=== PATIENT | female | born 1945 | race Caucasian/White ===

== ENCOUNTER 2016-10-05 09:27 | Day surgery (SDC) | payer MEDICARE, OTHER ==
[~2016-10-05 09:27] MED LIST: Buffered Lidocaine 0.9% SYRIN* 5 ML/SYR SYRINGE INTRADERM ONE
[2016-10-05] MEDS ORDERED: Midazolam* 1 MG/ML 2 ML VIAL (2 MG) ONE (12:49)
[2016-10-05] MEDS ORDERED: Lidocaine 2% PF * 5 ML VIAL ONE (13:01)
[2016-10-05] MEDS ORDERED: Albuterol 2.5 MG/3 ML NEB.SOL* (0.083%) ONE (13:12)
[2016-10-05] MEDS ORDERED: Levalbuterol 1.25MG/0.5ML NEB ONE (13:14)
[2016-10-05] MEDS ORDERED: Neomycin/Polymy/Dex OPTH.SUSP* MAXITROL 0.1% 5 ML ONE (13:55)
[2016-10-05] MEDS ORDERED: acetaZOLAMIDE TAB* 250 MG ONE (13:55)
[2016-10-05] MEDS ORDERED: Povidone Iodine 5% OPTH* 30 ML BTL ONE (13:55)
[2016-10-05] MEDS ORDERED: Phenylephrine 2.5% OPTH.SOL* 2 ML BTL ONE (13:55)
[2016-10-05] MEDS ORDERED: Flurbiprofen 0.03% OPTH.SOL* 2.5 ML BTL ONE (13:55)
[2016-10-05] MEDS ORDERED: Cyclopentolate 1% OPTH.SOL* 2 ML BTL ONE (13:55)
[2016-10-05] MEDS ORDERED: Lidocaine 1% MPF* 2 ML VIAL ONE (13:55)
[2016-10-05] MEDS ORDERED: Lidocaine 1% MPF wEPI 200,000* 30 ML SDV ONE (13:55)
[2016-10-05] MEDS ORDERED: Proparacaine 0.5% OPHTH.SOL* 15 ML BTL ONE (13:56)
[2016-10-05] MEDS ORDERED: Buffered Lidocaine 0.9% SYRIN* 5 ML/SYR SYRINGE ONE (13:56)
[2016-10-05 14:00] VITALS: BP 126/73
--- NOTE | 2016-10-06 07:47 | OP ---
DATE OF OPERATION: 10/05/16 - [facility] DATE OF : 45 SURGEON: Emil Craig M.D. PREOPERATIVE DIAGNOSIS: Cataract, right eye. POSTOPERATIVE DIAGNOSIS: Cataract, right eye. OPERATIVE PROCEDURE: Phacoemulsification right eye with IOL. DESCRIPTION OF PROCEDURE: The patient was brought to the operating room after being given 1/2% Alcaine with epinephrine drops in the preoperative area. The eye was prepped and draped in the usual sterile fashion. Sterile drape and eyelid speculum were placed. Again, topical 1/2% Alcaine with epinephrine was given. A paracentesis incision was made at the 9 o'clock position with the No.75 blade. Clear cornea incision 2.2 x 2.2-mm was created at the 12 o'clock position starting at the anterior limbus using the 2.2-mm keratome. The anterior chamber was irrigated with 0.4 mL of 1% non-preservative intracameral lidocaine and filled with DisCoVisc. A capsulorrhexis was completed using the cystotome and the Utrata forceps. Hydrodissection was performed with balanced salt solution. The lens nucleus was removed with the Phacoemulsification handpiece without incident. Cortex was removed with the irrigation-aspiration handpiece. The capsular bag was re-inflated using DisCoVisc and an implant [id number] was inserted with the shooter oriented to the 129 degree meridian. Horizontal reference bethanie was made with the patient in seated position in preoperative area. The irrigation-aspiration handpiece was used to remove all residual DisCoVisc. The eye was refilled with balanced salt solution and the wound checked and found to be watertight. Topical Maxitrol drops were given. [id number]/[facility] #: [id number] [facility]OSPITALJose David
== END 2016-10-05 13:45 | disposition home or self-care (01) ==
LOC: OREAST 09:27
PROVIDERS: ATTEND Specialist
DX: H25.811 Combined forms of age-related cataract, right eye (principal); H04.123 Dry eye syndrome of bilateral lacrimal glands; H02.403 Unspecified ptosis of bilateral eyelids; J45.21 Mild intermittent asthma with (acute) exacerbation; Z87.891 Personal history of nicotine dependence; Z79.51 Long term (current) use of inhaled steroids
CPT/HCPCS: A9270-GY; J2001; J2250; V2787

== ENCOUNTER 2016-10-12 08:34 | Day surgery (SDC) | payer MEDICARE, OTHER ==
[2016-10-12] MEDS ORDERED: Midazolam* 1 MG/ML 2 ML VIAL (2 MG) ONE (11:18)
[2016-10-12 12:09] VITALS: BP 122/57
[2016-10-12] MEDS ORDERED: Lidocaine 1% MPF wEPI 200,000* 30 ML SDV ONE (13:05)
[2016-10-12] MEDS ORDERED: Lidocaine 1% MPF* 2 ML VIAL ONE (13:05)
[2016-10-12] MEDS ORDERED: Povidone Iodine 5% OPTH* 30 ML BTL ONE (13:05)
[2016-10-12] MEDS ORDERED: Cyclopentolate 1% OPTH.SOL* 2 ML BTL ONE (13:05)
[2016-10-12] MEDS ORDERED: Proparacaine 0.5% OPHTH.SOL* 15 ML BTL ONE (13:05)
[2016-10-12] MEDS ORDERED: Neomycin/Polymy/Dex OPTH.SUSP* MAXITROL 0.1% 5 ML ONE (13:05)
[2016-10-12] MEDS ORDERED: Buffered Lidocaine 0.9% SYRIN* 5 ML/SYR SYRINGE ONE (13:05)
[2016-10-12] MEDS ORDERED: acetaZOLAMIDE TAB* 250 MG ONE (13:05)
[2016-10-12] MEDS ORDERED: Flurbiprofen 0.03% OPTH.SOL* 2.5 ML BTL ONE (13:05)
[2016-10-12] MEDS ORDERED: Phenylephrine 2.5% OPTH.SOL* 2 ML BTL ONE (13:05)
--- NOTE | 2016-10-12 13:24 | OP ---
DATE OF OPERATION: 10/12/2016 - [facility] DATE OF : 1945. SURGEON: Emil Craig M.D. PREOPERATIVE DIAGNOSIS: Cataract left eye. POSTOPERATIVE DIAGNOSIS: Cataract left eye. OPERATIVE PROCEDURE: Phacoemulsification left eye with IOL. DESCRIPTION OF PROCEDURE: The patient was brought to the operating room after being given 1/2% Alcaine with epinephrine drops in the preoperative area. The eye was prepped and draped in the usual sterile fashion. Sterile drape and eyelid speculum were placed. Again, topical 1/2% Alcaine with epinephrine was given. A paracentesis incision was made at the 3 o'clock position with the No.75 blade. Clear cornea incision 2.2 x 2.2-mm was created at the 6 o'clock position starting at the anterior limbus using the 2.2-mm keratome. The anterior chamber was irrigated with 0.4 mL of 1% non-preservative intracameral lidocaine and filled with DisCoVisc. A capsulorrhexis was completed using the cystotome and the Utrata forceps. Hydrodissection was performed with balanced salt solution. The lens nucleus was removed with the Phacoemulsification handpiece without incident. Cortex was removed with the irrigation-aspiration handpiece. The capsular bag was re-inflated using DisCoVisc and an [id number] implant was inserted with the shooter. The irrigation-aspiration handpiece was used to remove all residual DisCoVisc. The eye was refilled with balanced salt solution and the wound checked and found to be watertight. Topical Maxitrol drops were given. [id number]/[facility] #: [id number] [facility]ITALJose David
== END 2016-10-12 12:09 | disposition home or self-care (01) ==
LOC: OREAST 08:34
PROVIDERS: ATTEND Specialist
DX: H25.812 Combined forms of age-related cataract, left eye (principal); H04.123 Dry eye syndrome of bilateral lacrimal glands; H02.403 Unspecified ptosis of bilateral eyelids; Z87.891 Personal history of nicotine dependence; I34.0 Nonrheumatic mitral (valve) insufficiency
CPT/HCPCS: A9270-GY; J2001; J2250; V2632

== ENCOUNTER 2016-10-25 16:20 | Emergency (ER) | payer MEDICARE, OTHER ==
[2016-10-25 16:26] VITALS: BP 142/74
--- NOTE | 2016-10-25 16:42 | UC ---
Respiratory Complaint HPI - HPI Summary HPI Summary: 71 yo female with cough and wheezing x >1 month end of August took augmentin- it gave her diarrhea but did not help with her symptoms she recently saw her asthma and allergy MD just finished coarse of prednisone (40 mg /day) without improvement had fever at onset none recentlys - History of Current Complaint Chief Complaint: UCRespiratory Stated Complaint: COUGH Time Seen by Provider: 10/25/16 16:36 Hx Obtained From: Patient Onset/Duration: Gradual Onset, Lasting Weeks Timing: Constant Severity Initially: Moderate Severity Currently: Moderate Pain Intensity: 0 Pain Scale Used: 0-10 Numeric Character: Cough: Nonproductive Aggravating Factors: Recumbent Position Alleviating Factors: Bronchodilator Associated Signs And Symptoms: Positive: Fever - at onset only, Wheezing, Nasal Congestion Related History: Similar Episode/Dx as: - bronchitis - Allergies/Home Medications Allergies/Adverse Reactions: Allergies Allergy/AdvReac Type Severity Reaction Status Date / Time Fluticasone [From Advair] Allergy Intermediate Tachycardia Verified 10/12/16 09: 21 Salmeterol [From Advair] Allergy Intermediate Tachycardia Verified 10/12/16 09: 21 Sulfabenzamide Allergy Unknown Unknown Verified 10/12/16 09:21 [From Sulfa-Trip] Reaction Details Sulfacetamide Allergy Unknown Unknown Verified 10/12/16 09:21 [From Sulfa-Trip] Reaction Details Sulfathiazole Allergy Unknown Unknown Verified 10/12/16 09:21 [From Sulfa-Trip] Reaction Details Home Medications: Home Medications Promethazine W/Codeine [Promethazine/Codeine] PRN 10/25/16 [History] PMH/Surg Hx/FS Hx/Imm Hx Previously Healthy: Yes Endocrine History: Dyslipidemia Respiratory History: COPD, Asthma, Bronchitis, Pneumonia - Surgical History Surgical History: Yes Surgery Procedure, Year, and Place: 21 YRS OLD- WISDOM TOOTH EXTRACTED IN DR DYLAN- DIFFICULTY WAKING UP. 1995-BLEPHAROPLASTY- IN DR KRAUS'S OFFICE - Family History Known Family History: Positive: Hypertension, Respiratory Disease - Social History Alcohol Use: Weekly Alcohol Amount: 1 GLASS OF WINE/WEEK Substance Use Type: None Smoking Status (MU): Former Smoker Type: Cigarettes Amount Used/How Often: SOCIAL SMOKER, NOT EVERY DAY, OFF AND ON FOR 20 YRS Length of Time of Smoking/Using Tobacco: 20 YRS Have You Smoked in the Last Year: No When Did the Patient Quit Smoking/Using Tobacco: 1996 Review of Systems Constitutional: Negative Skin: Negative Eyes: Negative ENT: Negative Respiratory: Cough Cardiovascular: Negative Gastrointestinal: Negative Genitourinary: Negative Motor: Negative Musculoskeletal: Negative Neurological: Negative Psychological: Negative All Other Systems Reviewed And Are Negative: Yes Physical Exam Triage Information Reviewed: Yes Appearance: Well-Appearing, No Pain Distress, Well-Nourished Vital Signs: Initial Vital Signs Temp 99.4 F 10/25/16 16:23 Pulse 95 10/25/16 16:23 Resp 18 10/25/16 16:23 BP 142/74 10/25/16 16:23 Pulse Ox 98 10/25/16 16:23 Eyes: Positive: Conjunctiva Clear ENT: Positive: Hearing grossly normal, Nasal congestion. Negative: Nasal drainage, Trismus, Muffled/hoarse voice Neck: Positive: Nontender, No Lymphadenopathy Respiratory: Positive: No respiratory distress, No accessory muscle use, Wheezing Cardiovascular: Positive: RRR Musculoskeletal: Positive: ROM Intact, No Edema Neurological: Positive: Alert Psychological Exam: Normal Skin Exam: Normal UC Diagnostic Evaluation - Laboratory O2 Sat by Pulse Oximetry: 98 - normal/not hypoxic - Radiology Xray Interpretation: Positive (See Comments) - small pleural effusion /left fissure, stigmata of COPD Radiology Interpretation Completed By: Radiologist Respiratory Course/Dx - Differential Dx/Diagnosis Provider Diagnoses: acute exacerbation of COPD. small pleural effusion (L) Discharge - Discharge Plan Condition: Stable Disposition: HOME Prescriptions: Clarithromycin TAB* [Biaxin 500 MG TAB*] 500 mg PO BID #14 tab Patient Education Materials: Acute Bronchitis (ED), Pleural Effusion (ED) Referrals: Sophie Tucker MD [Primary Care Provider] - As Soon As Possible Additional Instructions: no pnemonia but the radiologist did note a small left sided pleural effusion recheck for new or worsening symptoms
[2016-10-25] MEDS ORDERED: Ipratropium 0.5MG/2.5ML NEB* 0.5 MG/2.5 ML NEB.SOLN INH ONE (16:52)
[2016-10-25] MEDS ORDERED: Albuterol 2.5 MG/3 ML NEB.SOL* (0.083%) INH ONE (16:52)
--- NOTE | 2016-10-25 17:28 | RAD ---
INDICATION: Cough x1 month COMPARISON: None TECHNIQUE: PA and lateral views of the chest were obtained. FINDINGS: The heart and mediastinum are normal in size and contour. On the AP view the lungs appear hyperaerated. On the lateral view there is flattening of the diaphragm with an increased retrosternal airspace. Depicted better on the lateral view images, there is costophrenic angle blunting. There is also a lenticular shaped density obscuring the left aphasia. The lungs are otherwise adequately aerated without suspicious nodules or lobar consolidation. Visualized bones are normal for the patient's age. There is no radiographic evidence of free air beneath the diaphragm IMPRESSION: 1. CHEST X-RAY FINDINGS ARE CONSISTENT WITH THE STIGMATA OF CHRONIC OBSTRUCTIVE PULMONARY DISEASE. 2. THERE IS PROBABLY A SMALL PLEURAL EFFUSION POTENTIALLY WITH FLUID IN THE LEFT MAJOR FISSURE WELL.
== END 2016-10-25 17:52 | disposition home or self-care (01) ==
LOC: UCEAST 16:20
DX: J44.1 Chronic obstructive pulmonary disease with (acute) exacerbation (principal); J90 Pleural effusion, not elsewhere classified; Z87.891 Personal history of nicotine dependence
CPT/HCPCS: 71020; 99212; G0463; J7644

== ENCOUNTER 2018-08-29 08:59 | Inpatient (IN) | payer MEDICARE, OTHER ==
[2018-08-29] MEDS ORDERED: Ondansetron INJ* 2 MG/ML VIAL IV ONE (09:24)
--- NOTE | 2018-08-29 09:28 | ED ---
Abdominal Pain/Female - HPI Summary HPI Summary: Pt. is a 73 y.o female who presents to the ER for diffuse abd. pain. Pt. states she was diagnosed with diverticulitis by PCP two weeks ago. Pt. states she had an outpt. CT scan and finished a course of Cipro last Monday, 5 days ago. Pt. states abd. pain improved after antibiotic and then returned yesterday. Associated sxs of subjective fever/chills, and N/V. Pt. denies diarrhea, blood in stool, CP, or SOB. Past hx of MVP, asthma, HDL, GERD. Denies abd. sx hx. Symptoms are moderate in severity. No current modifying factors. - History of Current Complaint Chief Complaint: EDAbdPain Stated Complaint: ABD PAIN PER EMS Time Seen by Provider: 08/29/18 09:16 Hx Obtained From: Patient Pain Intensity: 7 Allergies/Adverse Reactions: Allergies Allergy/AdvReac Type Severity Reaction Status Date / Time fluticasone Allergy Tachycardia Verified 08/29/18 09:26 [From Advair Diskus] salmeterol Allergy Tachycardia Verified 08/29/18 09:26 [From Advair Diskus] Sulfa (Sulfonamide Allergy Unknown Verified 08/29/18 09:26 Antibiotics) Reaction Details Home Medications: Home Medications Albuterol 2.5MG/3ML (0.083%)* [Ventolin 2.5 MG/3 ML NEB.LAYA*] 2.5 mg INH Q6H PRN 08/29/18 [History Confirmed 08/29/18] Albuterol HFA INHALER* [Ventolin HFA Inhaler*] 2 puff INH Q4H PRN 08/29/18 [ History Confirmed 08/29/18] Estrogens, Conjugated [Premarin] 0.625 mg PO WEEKLY 08/29/18 [History Confirmed 08/29/18] Melatonin [Meladox] 3 mg PO BEDTIME 08/29/18 [History Confirmed 08/29/18] RX: Hydrocortisone 2.5% CREAM(NF) 1 applic TOPICAL BID 08/29/18 [History Confirmed 08/29/18] PMH/Surg Hx/FS Hx/Imm Hx Previously Healthy: Yes Cardiovascular History: Reports: Hx Coronary Artery Disease, Hx 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, Other Cardiovascular Problems/Disorders - HIGH CHOLESTEROL Respiratory History: Reports: Hx Asthma, Other Respiratory Problems/Disorders - MILD SOB FROM BRONCHITIS GI History: Reports: Hx Gastroesophageal Reflux Disease - TAKES FAMOTIDINE PRN Musculoskeletal History: Reports: Hx Arthritis - OSTEOARTHRITIS, Other Musculoskeletal History - DJD NECK AND BACK Sensory History: Reports: Hx Cataracts - BILATERAL- SURG DATES 10/05/16 & 10/12/16 , Hx Contacts or Glasses - GLASSES Denies: Hx Glaucoma, Hx Hearing Aid Opthamlomology History: Reports: Hx Cataracts - BILATERAL- SURG DATES 10/05/16 & 10/12/16, Hx Contacts or Glasses - GLASSES Denies: Hx Glaucoma - Cancer History Hx Chemotherapy: No - Surgical History Surgery Procedure, Year, and Place: 21 YRS OLD- WISDOM TOOTH EXTRACTED IN DR OFFICE- DIFFICULTY WAKING UP. 1995-BLEPHAROPLASTY- IN DR KRAUS'S OFFICE Hx Anesthesia Reactions: Yes - WISOM TOOTH- TOO MUCH ANES, DIFFICULTY WAKING UP Infectious Disease History: No Infectious Disease History: Denies: Hx Clostridium Difficile, Hx Hepatitis, Hx Human Immunodeficiency Virus (HIV), Hx of Known/Suspected MRSA, Hx Shingles, Hx Tuberculosis, Hx Known/ Suspected VRE, Hx Known/Suspected VRSA, History Other Infectious Disease, Traveled Outside the [place] in Last 30 Days - Family History Known Family History: Positive: Hypertension, Respiratory Disease - Social History Occupation: Retired Lives: Alone Alcohol Use: None Alcohol Amount: denies, but has history Substance Use Type: Reports: None Hx Tobacco Use: No Smoking Status (MU): Former Smoker Type: Cigarettes Amount Used/How Often: SOCIAL SMOKER, NOT EVERY DAY, OFF AND ON FOR 20 YRS Length of Time of Smoking/Using Tobacco: 20 YRS Have You Smoked in the Last Year: No Review of Systems Positive: Fever, Chills Eyes: Negative ENT: Negative Cardiovascular: Negative Negative: Palpitations, Chest Pain Respiratory: Negative Negative: Shortness Of Breath, Cough Positive: Abdominal Pain, Vomiting, Nausea. Negative: Diarrhea Genitourinary: Negative Musculoskeletal: Negative Skin: Negative Neurological: Negative All Other Systems Reviewed And Are Negative: Yes Physical Exam Triage Information Reviewed: Yes Vital Signs On Initial Exam: Initial Vitals Temp Pulse Resp BP Pulse Ox 99.8 F 81 18 106/64 95 08/29/18 09:01 08/29/18 09:01 08/29/18 09:01 08/29/18 09:01 08/29/18 09:01 Vital Signs Reviewed: Yes Appearance: Positive: Well-Appearing - Pt. sitting up in bed with her eyes closed. Appears uncomfortable but nontoxic. Skin: Positive: Warm, Dry Head/Face: Positive: Normal Head/Face Inspection Eyes: Positive: Normal, EOMI, CANDIE Neck: Positive: Supple Respiratory/Lung Sounds: Positive: Clear to Auscultation, Breath Sounds Present Cardiovascular: Positive: Normal, RRR Abdomen Description: Positive: Other: - Soft, mildly distened with diffuse tenderness throughout with guarding. Musculoskeletal: Positive: Normal, Strength/ROM Intact Neurological: Positive: Normal, CN Intact II-III Psychiatric: Positive: Affect/Mood Appropriate Diagnostics - Vital Signs Vital Signs Temp Pulse Resp BP Pulse Ox 08/29/18 09:01 99.8 F 81 18 106/64 95 - Laboratory Result Diagrams: 08/29/18 10:10 08/29/18 10:10 Lab Statement: Any lab studies that have been ordered have been reviewed, and results considered in the medical decision making process. Abdominal Pain Fem Course/Dx - Course Course Of Treatment: Pt. presenting with worsening abd. pain after being dx with diverticulitis two weeks ago. Pt. has diffuse pain and distention on exam. Low grade fever. Will obtain labs and CT scan to evaluation for abscess, perforation or other etiology. IV fluids started. CBC shows normal WBC. Lactic acid 2.5, mag 1.8, CRP 2245. ECG done at 0926 shows a sinus rhythm of 99bpm, right axis deviation, RBBB, PVCs, no STEMI. CT abd/pelvis per radiology: IMPRESSION: There are foci of free intraperitoneal air noted. There is a large amount of. stool in the colon. Mucosal thickening of the sigmoid colon is noted. Colonic perforation. should BE considered. Cholelithiasis without biliary duct dilatation. 1133: Surgery paged. IV Zosyn ordered. Discussed case with Dr. Ramos and she will see pt. in the ED. Case discussed with Dr. Geiger as well. Either Dr. Geiger or Dr. Ramos will admit pt. based on need for surgical intervention. - Diagnoses Differential Diagnosis: Positive: Abdominal Aortic Aneurysm, Appendicitis, Bowel Obstruction, Constipation, Diverticulitis, [place] Provider Diagnoses: Intestinal perforation Discharge - Sign-Out/Discharge Documenting (check all that apply): Patient Departure Patient Received Moderate/Deep Sedation with Procedure: No - Discharge Plan Condition: Stable Disposition: ADMITTED TO [facility] Referrals: Sophie Tucker MD [Primary Care Provider] - - Billing Disposition and Condition Condition: STABLE Disposition: Admitted to [facility]
[2018-08-29] MEDS ORDERED: NS 0.9% IV ONE (09:30)
[2018-08-29 10:27] LABS: ABS Lymphocytes 0.5 10^3/ul (1.0-4.8); ABS Monocytes 0.8 10^3/ul (0-0.8); Hematocrit 41 % (35-47); Hemoglobin 13.6 g/dL (12.0-16.0); Lymphocyte % 6.4 %; Mean Corpuscular HGB Conc 33 g/dL (31-36); Mean Corpuscular Hemoglobin 28 pg (27-31); Mean Corpuscular Volume 85 fL (80-97); Mean Platelet Volume 7.3 fL (7.4-10.4); Nucleated Red Blood Cells % 0.1; Platelet Count 436 10^3/uL (150-450); Red Cell Distribution Width 15 % (10.5-15); White Blood Count 8.4 10^3/uL (3.5-10.8)
[2018-08-29 10:47] LABS: ALT 16 U/L (7-52); AST 18 U/L (13-39); Albumin 3.6 g/dL (3.2-5.2); Albumin/Globulin Ratio 1.1 (1-3); Alkaline Phosphatase 78 U/L (34-104); Anion Gap 11 mmol/L (2-11); BUN/Creatinine Ratio 15.9 (8-20); Blood Urea Nitrogen 13 mg/dL (6-24); C Reactive Protein 225.95 mg/L (<8.01); CO2 Carbon Dioxide 22 mmol/L (22-32); Calcium 8.8 mg/dL (8.6-10.3); Chloride 101 mmol/L (101-111); EGFR African American 82.7 (>60); EGFR Non-African American 68.3 (>60); Globulin 3.2 g/dL (2-4); Glucose 160 mg/dL (70-100); Magnesium 1.8 mg/dL (1.9-2.7); Potassium 4.3 mmol/L (3.5-5.0); Sodium 134 mmol/L (135-145); Total Protein 6.8 g/dL (6.4-8.9)
[2018-08-29 10:48] LABS: Troponin I 0.01 ng/mL (<0.04)
[2018-08-29] MEDS ORDERED: Iohexol 300* (CONTRAST) 10 ML SDV IV ONE (11:18)
[2018-08-29] MEDS ORDERED: Morphine 4 MG/ML VIAL (1 ml) 4 MG/ML VIAL IV ONE (11:31)
[2018-08-29] MEDS ORDERED: ED Piperacillin/Tazobac 3.375 3.375 GM/100 ML PREMIX.SET IVPB ONE (11:31)
[2018-08-29] MEDS ORDERED: Piperacillin/Tazobac (*) 3.375 GM BAG ONE (11:42)
[2018-08-29] MEDS ORDERED: ZOSYN 3.375 GM x ONE DOSE over 30 miuntes IVPB ×2 (12:00)
[2018-08-29] MEDS ORDERED: Magnesium Sulfate 1 GM IV* 1 GM/100 ML BAG IV ONE (14:51)
--- NOTE | 2018-08-29 14:55 | CONS ---
CONSULTATION NOTE: DATE OF CONSULT: 08/29/18. SERVICE: General Surgery. ATTENDING PHYSICIAN: Lora Ramos MD. REASON FOR CONSULT: Diverticulitis with foci of air. HISTORY OF PRESENT ILLNESS: Ms. Spencer is a 73-year-old female with a history of asthma and mitral valve prolapse, who presented to the emergency room with complaints of 2 days of having abdominal pain after eating a sandwich. The patient notes that earlier, on 08/20/18, she was seen by her [place] physician for abdominal pain and had a CT scan performed at [place] that showed diverticulitis. She said that she was prescribed antibiotics Cipro and Flagyl and that she took Cipro for 15 days, but she stopped taking Flagyl after 3 days given that she was intolerant of the medication and was having side effects. She said that her pain had initially improved after the antibiotics and at that time she was also taking a liquid diet; however, after she had the sandwich about 2 days ago, her pain recurred almost immediately after that. She said the last night, she did have a fever to 101 at home and given that the pain has increased over the past 2 days and has not improved, she came to the emergency room. The patient does note that she has significant constipation, she has been trying to take stool softeners to improve this. She has normally very hard stool and does not have bowel movements everyday. She has never had a colonoscopy before. Today, other than having the abdominal pain, she does not have any complaints right now. PAST MEDICAL HISTORY: 1. Mitral valve prolapse. 2. Asthma. 3. Hyperlipidemia. 4. GERD. PAST SURGICAL HISTORY: Cataract surgery. No history of abdominal surgery. MEDICATIONS: 1. Melatonin 3 mg p.o. q.h.s. 2. Albuterol 2 puffs inhaled q.4 hours p.r.n. 3. Premarin 0.625 mg p.o. weekly. ALLERGIES: ADVAIR and SULFA. FAMILY HISTORY: Her father had diverticulitis. SOCIAL HISTORY: The patient is a former smoker. She is retired and she lives alone. REVIEW OF SYSTEMS: Negative except for abdominal pain and constipation. PHYSICAL EXAM: Vital Signs: Temperature is 99.8, pulse is 90, respiratory rate is 16, blood pressure is 145/117. General: She is an elderly woman, lying comfortably in bed, in no apparent distress. HEENT: Normocephalic, atraumatic. Abdomen is somewhat distended, but fairly soft, tender in the right lower quadrant as well as left lower quadrant. No guarding. Cardiovascular with regular rate and rhythm. Respiratory is clear to auscultation bilaterally. DIAGNOSTIC STUDIES/LAB DATA: Laboratory Values: White blood cell count of 8.4 , hemoglobin 13.6, hematocrit 41, platelets are 436. Sodium is 134, potassium is 3.4, chloride 101, BUN 13, creatinine 0.82, glucose is 160. Lactic acid is 2.5. CRP is 225. Total bilirubin 1.1, AST is 18, ALT is 16, alkaline phosphatase is 78. Troponin is 0.01. Radiology: CT abdomen and pelvis, the images were reviewed. There is fecal stasis noted. There is a large amount of stool in the sigmoid colon, descending colon, transverse colon, and right colon. Mucosal thickening was noted at the transverse colon. There is free intraperitoneal air and the possibility of perforation of the colon should be considered, infiltration of fat noted at the anterior mesocolon. IMPRESSION: There are foci of free intraperitoneal air noted. There is large amount of stool in the colon. The patient also had cholelithiasis. ASSESSMENT AND PLAN: Ms. Spencer is a 73-year-old female with a history of asthma and mitral valve prolapse, who presents with recurrent diverticulitis after attempts to have outpatient management approximately 2 weeks ago. She has failed outpatient management, and after advancing her diet about 2 days ago , she developed a recurrence of her diverticulitis. Today, she remains tender, but she is currently afebrile and her white count normal. Her CT scan does show thickening of the colon, a huge stool burden and foci of intraperitoneal air in the anterior abdomen and over the liver and some stranding of her mesentry at this time. I reviewed this imaging with Dr. Howell. We recommend continuing to observe the patient and making her n.p.o. and starting her on IV Zosyn. I discussed this with the patient and her friend at the bedside that the typical management of an uncomplicated diverticulitis is to treat with bowel rest and IV antibiotics. However, she does demonstrate foci of free air that are small, but concerning. She is not acutely ill at this time and will be monitored. However, and if she clinically decompensates or fails to progress over several days then she may have to undergo surgical intervention, which would be a Marin's procedure. I did explain this to the patient and she understands. If she is able to improve after conservative management, then as an outpatient, she can discuss and elective sigmoidectomy. Surgery will continue to follow. [id number]/[facility] #: [id number] JONNIE
[2018-08-29] MEDS ORDERED: NS 0.9% 1000 ML** 1,000 ML IV SCH (15:15)
[2018-08-29] MEDS ORDERED: NS 0.9% 1000 ML** 1,000 ML IV ONE (15:31)
[2018-08-29] MEDS ORDERED: Zosyn per Pharmacy* NOTE FOLLOW UP SCH (16:00)
[2018-08-29] MEDS ORDERED: Acetaminophen SUPP* 650 MG SUPP PR ONE (16:05)
--- NOTE | 2018-08-29 18:18 | PN ---
Progress Note - Progress Note Date of Service: 08/29/18 Note: Surgery Progress Note I re-examined patient this evening. She was seen earlier in afternoon by Dr. Kapoor who will be continuing to follow patient. She had fever to 103 earlier in ED and HR in 100-110s. Abdominal exam is unchanged, she remains distended and has tenderness in LLQ and some tenderness in RUQ. She will continue to receive IV abx and resuscitation. She understands surgery may be necessary if she decompensates or fails to improve. We will continue to monitor.
[2018-08-29] MEDS: ZOSYN 3.375 GM Q8H per EXTENDED INFUSION IVPB SCH ×2 (18:21)
--- NOTE | 2018-08-29 18:54 | HP ---
ATTENDING PROVIDER ADDENDUM NOW INCLUDED ON THIS REPORT CC: Dr. Tucker; Dr. Ramos; Dr. Kapoor * HISTORY AND PHYSICAL: DATE OF ADMISSION: 08/29/18 PROVIDER: Tammi Carbone NP. PRIMARY CARE PROVIDER: Dr. Sophie Tucker. ATTENDING PHYSICIAN WHILE IN THE HOSPITAL: Dr. Easton Reyna * (dictated by Tammi Carbone NP). ATTENDING SURGEON: Dr. Rc Kapoor. CHIEF COMPLAINT: 1. Abdominal pain. 2. Fever. HISTORY OF PRESENT ILLNESS: Ms. Spencer is a 73-year-old female with past medical history significant for mitral valve prolapse, asthma, and recent history of diverticulitis, who presented to the emergency room with complaints of abdominal pain and fever x2 days. The patient reports that she was seen at [facility] approximately 21 days, diagnosed with diverticulitis on a CAT scan. At that time, she was started on Cipro and Flagyl. She reports that she took antibiotics for 15 days. Last dose of antibiotics was last Monday evening. The patient reports that the pain started becoming worse approximately 2 days ago and she also developed a fever 2 days ago. The patient also reports that she has constipation. This morning, she started with nausea and vomiting, fever and chills continued, and continued to have a cramping soreness in her abdomen that was worse with cough and movement. Due to the symptoms, the patient presented to the emergency room for further evaluation. While in the emergency room, the patient had routine lab work drawn. She was found to have lactic acidosis with lactic acid level of 2.5. Her abdomen was distended and firm to touch with tenderness. No guarding at this time. She had a CT of the abdomen and pelvis that showed foci of free intraperitoneal air. There is a large amount of stool within the colon, mucosal thickening of the sigmoid colon and colonic perforation should be considered. Due to the findings of colonic perforation and abdominal pain, we were asked to see and evaluate the patient for admission. PAST MEDICAL HISTORY: 1. Mitral valve prolapse. 2. Asthma. 3. History of diverticulitis. PAST SURGICAL HISTORY: Cataracts. HOME MEDICATIONS: 1. Estrogen, Premarin 0.625 p.o. weekly. 2. Melatonin 3 mg at bedtime. 3. Albuterol HFA inhalations 2 puffs q.4 hours as needed. 4. Albuterol nebulizer 2.5 mg inhaled every 6 hours as needed for shortness of breath. 5. Nasacort 1 puff nasally daily. 6. Multivitamin 1 tab p.o. daily. 7. Pepcid 20 mg p.o. p.r.n. 8. Symbicort 2 puffs twice daily. 9. Atorvastatin 20 mg p.o. daily. 10. Acetaminophen 325 mg q.4 hours as needed for pain. ALLERGIES: ADVAIR DISKUS and SULFA. FAMILY HISTORY: Mother with history of CHF in her 90s. Father with heart disease, at the age of 67. Father also had diet-controlled diabetes. No reported history of cancer. The patient reports she quit smoking approximately 20 years ago. Denies any alcohol or illicit drug use. She is . She lives with a friend. Surrogate decision maker in the event she is unable to make her own decision is Cely Dumont. She is a full code. REVIEW OF SYSTEMS: The patient reports fever. She denies unintended weight loss. Denies chest pain or edema. Denies any cough, hemoptysis, or shortness of breath. She does report nausea, vomiting, constipation, and diffuse abdominal pain. She denies any gross hematuria, dysuria, focal weakness, or sensory loss. Denies any visual complaints, dysphagia, arthralgia, myalgias, rashes, lesions, or open sores. Denies any psychosis or anxiety. PHYSICAL EXAMINATION GENERAL: At this time, Ms. Spencer is a 73-year-old female. She is resting on the stretcher in the emergency room. She does not appear to be in any acute distress. VITAL SIGNS: Temperature 103.1, heart rate 109, respirations are 16, O2 saturation 92% on room air, blood pressure 101/65. HEENT: Head is atraumatic and normocephalic. Eyes: EOMs are intact. Sclerae are anicteric and not pale. Oral mucosa appears to be dry. NECK: Supple. LUNGS: Clear to auscultation bilaterally. No wheezes, rales, or rhonchi. CARDIAC: S1, S2. Regular rate and rhythm. She does have a murmur with known mitral valve prolapse. ABDOMEN: Distended, firm with diffuse tenderness. No guarding. EXTREMITIES: She is able to move all 4 extremities. Pedal pulses are +2 bilaterally. There is no clubbing or cyanosis. NEUROLOGIC: She is awake, alert, oriented x3. Speech is clear. Thought process is intact. There are no gross focal deficits. SKIN: Intact. DIAGNOSTIC STUDIES/LAB DATA: WBCs are 8.4, RBCs 4.80, hemoglobin 13.6, hematocrit was 41, platelet count 436. Sodium 134, potassium 4.3, chloride 101 , carbon dioxide was 22, anion gap was 11, BUN was 13, creatinine 0.82, glucose was 160, lactic acid 2.5, calcium 8.8, magnesium 1.8, total bili is 1.10. ASTs were 10, ALTs were 16, alkaline phosphatase 78. C-reactive protein 225.95. Lipase was less than 10. Urine is currently pending. She had a CT of the abdomen. IMPRESSION: She will be admitted for abdominal pain. 1. Abdominal pain. I suspect this is related to diverticulitis versus colonic perforation. Surgery has been consulted and have seen the patient in the emergency room. The patient will be n.p.o. except ice chips and then n.p.o. after midnight. She has been started on Zosyn. I will continue the Zosyn per pharmacy protocol. We will repeat abdominal assessments frequently. The patient will have a repeat CBC and BMP in the a.m. I am repeating her lactic acid as it was elevated on admission at 2.5. She did receive saline bolusing in the emergency room. I will give her another liter of normal saline. I will continue her on normal saline at 150 cc per hour as she does appear to be dry. I did discuss this case with Dr. Kapoor from surgery who saw the patient in the emergency room has recommended to continue with IV antibiotic for now and that the patient may need surgery in the future but not emergently at this time. 2. Sepsis. The patient does meet sepsis criteria with tachycardia and fever with known source of diverticulitis. She does meet severe sepsis at this time because her lactic acid is above 2.0. She has a lactic acid that is currently pending. The patient did receive IV Zosyn in the emergency room and 30 cc/kg fluid bolusing. I will continue fluid bolusing; repeat lactic acid again, it is currently pending. We will continue to monitor the patient. 3. Asthma. The patient should continue on her albuterol inhaler as previously prescribed as well as Symbicort. 4. DVT prophylaxis. I will place her on SCDs. I will hold on chemical DVT prophylaxis at this time as the patient has a high likelihood of going to the OR. 5. Diet. She will be n.p.o. except ice chips and then n.p.o. after midnight. 6. Code status. She is a full code. 7. The patient's surgical risk score for serious complication is 13.8%, which is below average, any complication 19.9%, again which is below average. Cardiac complications is 0.2%. The patient has not had any chest pain and has no cardiac history. I have requested to have EKG from PCP sent for comparison. 8. Hypomagnesia. The patient was given 1 g of magnesium IV and we will repeat a magnesium level in the a.m. TIME SPENT: Time spent on this consultation was 60 minutes; greater than half of that time was spent at the bedside reviewing events leading thus far to her hospitalization, performing my physical exam, and reviewing my plan of care. I have discussed with my attending, Dr. Easton Reyna; she is in agreement with plan. TAMMI CARBONE NP ADDENDUM: PRIMARY CARE PROVIDER: Dr. Tucker. CONSULTING GENERAL SURGEONS: Dr. Ramos and Dr. Kapoor. HISTORY OF PRESENT ILLNESS: The case was reviewed and discussed with Tammi Carbone NP. Ms. Spencer is a 73-year-old lady with a past medical history of asthma, hyperlipidemia, GERD, who was diagnosed with diverticulitis as an outpatient. She was treated with Cipro and Flagyl as an outpatient, but did not have significant improvement in her symptoms. She presented to the emergency room with complaints of fever and, as the pain persisted, she presented to the emergency room for further evaluation. CT of the abdomen and pelvis showed foci of free intraperitoneal air noted with large amount of stool in the colon, mucosal thickening of the sigmoid colon is noted and colonic perforation should be considered. The patient was seen and examined at bedside. PHYSICAL EXAMINATION GENERAL: The patient is an elderly lady, lying in the ED stretcher, in no acute distress. VITAL SIGNS: Her temperature was 99.8, heart rate 115, respiratory rate 16, oxygen saturation 95% on room air, blood pressure was 115/69. CHEST: Breath sounds present bilaterally with no added sounds. CVS: Normal S1, S2. Regular rate and rhythm. ABDOMEN: Distended with mild diffuse tenderness and severe tenderness in the left flank and left lower quadrant. There is no guarding or rebound. Bowel sounds are present. IMPRESSION AND PLAN: The case was discussed and reviewed with Dr. Ramos and Dr. Kapoor. The plan at this point is for conservative management with IV antibiotics, but she will be monitored and depending on her progression, she may require surgery (Marin's procedure). The patient is aware of the possibility of surgery and that would include a colostomy. I am in agreement with current management and we will continue to monitor on the medical floor. EASTON Reyna MD [id number]/[facility] #: [id number]/[facility] #: [id number] JONNIE
[2018-08-29] MEDS: Morphine 4 MG/ML VIAL (1 ml) 4 MG/ML VIAL IV PRN ×2 (19:14→23:44)
--- NOTE | 2018-08-29 19:18 | HP ---
CC: Dr. Tucker; Dr. Ramos; Dr. Kapoor HISTORY AND PHYSICAL: ADDENDUM: PRIMARY CARE PROVIDER: Dr. Tucker. CONSULTING GENERAL SURGEONS: Dr. Ramos and Dr. Kapoor. HISTORY OF PRESENT ILLNESS: The case was reviewed and discussed with Tammi Carbone NP. Ms. Spencer is a 73-year-old lady with a past medical history of asthma, hyperlipidemia, GERD, who was diagnosed with diverticulitis as an outpatient. She was treated with Cipro and Flagyl as an outpatient, but did not have significant improvement in her symptoms. She presented to the emergency room with complaints of fever and as the pain persisted, she presented to the emergency room for further evaluation. CT of the abdomen and pelvis showed foci of free intraperitoneal air noted with large amount of stool in the colon, mucosal thickening of the sigmoid colon is noted and colonic perforation should be considered. The patient was seen and examined at bedside. PHYSICAL EXAMINATION GENERAL: The patient is an elderly lady, lying in the ED stretcher, in no acute distress. VITAL SIGNS: Her temperature was 99.8, heart rate 115, respiratory rate 16, oxygen saturation 95% on room air, blood pressure was 115/69. CHEST: Breath sounds present bilaterally with no added sounds. CVS: Normal S1, S2. Regular rate and rhythm. ABDOMEN: Distended with mild diffuse tenderness and severe tenderness in the left flank and left lower quadrant. There is no guarding or rebound. Bowel sounds are present. IMPRESSION AND PLAN: The case was discussed and reviewed with Dr. Ramos and Dr. Kapoor. The plan at this point is for conservative management with IV antibiotics, but she will be monitored and depending on her progression, she may require surgery (Marin's procedure). The patient is aware of the possibility of surgery and that would include a colostomy. I am in agreement with current management and we will continue to monitor on the medical floor. [id number]/[facility] #: [id number] CAB[facility] MEDICAL CENTERJose David
[2018-08-30] MEDS: NS 0.9% 1000 ML** 1,000 ML IV SCH ×3 (01:08→16:23)
[2018-08-30] MEDS: ZOSYN 3.375 GM Q8H per EXTENDED INFUSION IVPB SCH ×6 (01:09→17:01)
[2018-08-30] MEDS: Morphine 4 MG/ML VIAL (1 ml) 4 MG/ML VIAL IV PRN ×2 (03:56→11:59)
[2018-08-30 05:25] LABS: ABS Lymphocytes 0.6 10^3/ul (1.0-4.8); ABS Monocytes 1.3 10^3/ul (0-0.8); ABS Neutrophils 9.4 10^3/ul (1.5-7.7); Hematocrit 36 % (35-47); Hemoglobin 11.9 g/dL (12.0-16.0); Mean Corpuscular HGB Conc 34 g/dL (31-36); Mean Corpuscular Hemoglobin 29 pg (27-31); Mean Corpuscular Volume 86 fL (80-97); Mean Platelet Volume 7.4 fL (7.4-10.4); Platelet Count 327 10^3/uL (150-450); Red Blood Count 4.17 10^6 /uL (3.70-4.87); Red Cell Distribution Width 15 % (10.5-15); White Blood Count 11.3 10^3/uL (3.5-10.8)
[2018-08-30 05:43] LABS: Calcium 7.3 mg/dL (8.6-10.3)
[2018-08-30 05:48] LABS: EGFR African American 114.2 (>60); EGFR Non-African American 94.4 (>60)
--- NOTE | 2018-08-30 08:02 | PN ---
Progress Note - Progress Note Date of Service: 08/30/18 SOAP: Subjective: []"a little better", bm yesterday Objective: [] Vital Signs 08/29/18 08/29/18 08/29/18 09:01 09:04 09:06 Temperature 99.8 F Pulse Rate 81 80 86 Respiratory 18 Rate Blood Pressure 106/64 106/64 (mmHg) O2 Sat by Pulse 95 93 92 Oximetry 08/29/18 08/29/18 08/29/18 09:24 10:24 11:00 Temperature Pulse Rate 104 86 86 Respiratory Rate Blood Pressure 106/90 130/72 (mmHg) O2 Sat by Pulse 95 91 90 Oximetry 08/29/18 08/29/18 08/29/18 11:25 11:47 12:00 Temperature Pulse Rate 90 103 Respiratory 16 Rate Blood Pressure 145/117 (mmHg) O2 Sat by Pulse 92 94 Oximetry 08/29/18 08/29/18 08/29/18 12:24 13:00 13:24 Temperature Pulse Rate 111 115 105 Respiratory Rate Blood Pressure 104/62 106/64 (mmHg) O2 Sat by Pulse 91 92 95 Oximetry 08/29/18 08/29/18 08/29/18 14:00 14:24 15:00 Temperature Pulse Rate 109 106 115 Respiratory Rate Blood Pressure 115/69 (mmHg) O2 Sat by Pulse 94 92 95 Oximetry 08/29/18 08/29/18 08/29/18 15:24 15:40 17:30 Temperature 103.1 F 101.4 F Pulse Rate 116 109 105 Respiratory 16 Rate Blood Pressure 101/65 104/60 (mmHg) O2 Sat by Pulse 95 95 Oximetry 08/29/18 08/29/18 08/29/18 17:46 17:55 19:14 Temperature 97.7 F Pulse Rate 40 Respiratory 16 16 20 Rate Blood Pressure 106/49 (mmHg) O2 Sat by Pulse 97 Oximetry 08/29/18 08/29/18 08/29/18 19:39 20:00 20:46 Temperature 98.1 F Pulse Rate 100 Respiratory 18 18 18 Rate Blood Pressure 112/63 (mmHg) O2 Sat by Pulse 95 Oximetry 08/29/18 08/29/18 08/30/18 23:43 23:44 01:04 Temperature 98.9 F Pulse Rate 95 Respiratory 16 18 16 Rate Blood Pressure 102/41 (mmHg) O2 Sat by Pulse 92 Oximetry 08/30/18 08/30/18 08/30/18 03:32 03:56 05:34 Temperature 98.9 F Pulse Rate 101 Respiratory 16 18 18 Rate Blood Pressure 118/61 (mmHg) O2 Sat by Pulse 92 Oximetry 08/30/18 08/30/18 08/30/18 07:34 07:43 07:45 Temperature 98.5 F Pulse Rate 99 Respiratory 18 18 Rate Blood Pressure 120/62 (mmHg) O2 Sat by Pulse 92 93 Oximetry Laboratory Last Values WBC 11.3 10^3/uL (3.5-10.8) H 08/30/18 05:11 RBC 4.17 10^6 /uL (3.70-4.87) 08/30/18 05:11 Hgb 11.9 g/dL (12.0-16.0) L 08/30/18 05:11 Hct 36 % (35-47) 08/30/18 05:11 MCV 86 fL (80-97) 08/30/18 05:11 MCH 29 pg (27-31) 08/30/18 05:11 MCHC 34 g/dL (31-36) 08/30/18 05:11 RDW 15 % (10.5-15) 08/30/18 05:11 Plt Count 327 10^3/uL (150-450) 08/30/18 05:11 MPV 7.4 fL (7.4-10.4) 08/30/18 05:11 Neut % (Auto) 83.2 % 08/30/18 05:11 Lymph % (Auto) 5.0 % 08/30/18 05:11 [place] % (Auto) 11.4 % 08/30/18 05:11 Eos % (Auto) 0.0 % 08/30/18 05:11 Baso % (Auto) 0.4 % 08/30/18 05:11 Absolute Neuts (auto) 9.4 10^3/ul (1.5-7.7) H 08/30/18 05:11 Absolute Lymphs (auto) 0.6 10^3/ul (1.0-4.8) L 08/30/18 05:11 Absolute Monos (auto) 1.3 10^3/ul (0-0.8) H 08/30/18 05:11 Absolute Eos (auto) 0.0 10^3/ul (0-0.6) 08/30/18 05:11 Absolute Basos (auto) 0.0 10^3/ul (0-0.2) 08/30/18 05:11 Absolute Nucleated RBC 0.0 10^3/ul 08/30/18 05:11 Nucleated RBC % 0.0 08/30/18 05:11 Sodium 137 mmol/L (135-145) 08/30/18 05:11 Potassium 4.0 mmol/L (3.5-5.0) 08/30/18 05:11 Chloride 111 mmol/L (101-111) 08/30/18 05:11 Carbon Dioxide 20 mmol/L (22-32) L 08/30/18 05:11 Anion Gap 6 mmol/L (2-11) 08/30/18 05:11 BUN 13 mg/dL (6-24) 08/30/18 05:11 Creatinine 0.62 mg/dL (0.51-0.95) 08/30/18 05:11 Est GFR ( Amer) 114.2 (>60) 08/30/18 05:11 Est GFR (Non-Af Amer) 94.4 (>60) 08/30/18 05:11 BUN/Creatinine Ratio 21.0 (8-20) H 08/30/18 05:11 Glucose 102 mg/dL (70-100) H 08/30/18 05:11 Lactic Acid 1.0 mmol/L (0.5-2.0) 08/29/18 15:20 Calcium 7.3 mg/dL (8.6-10.3) L 08/30/18 05:11 Magnesium 1.8 mg/dL (1.9-2.7) L 08/29/18 10:10 Total Bilirubin 1.10 mg/dL (0.2-1.0) H 08/29/18 10:10 AST 18 U/L (13-39) 08/29/18 10:10 ALT 16 U/L (7-52) 08/29/18 10:10 Alkaline Phosphatase 78 U/L (34-104) 08/29/18 10:10 Troponin I 0.01 ng/mL (<0.04) 08/29/18 10:10 C-Reactive Protein 225.95 mg/L (<8.01) H 08/29/18 10:10 Total Protein 6.8 g/dL (6.4-8.9) 08/29/18 10:10 Albumin 3.6 g/dL (3.2-5.2) 08/29/18 10:10 Globulin 3.2 g/dL (2-4) 08/29/18 10:10 Albumin/Globulin Ratio 1.1 (1-3) 08/29/18 10:10 Lipase < 10 U/L (11.0-82.0) L 08/29/18 10:10 Intake & Output 08/28/18 08/29/18 08/30/18 08/31/18 06:59 06:59 06:59 06:59 Intake Total 4190 Output Total 500 0 Balance 3690 0 Weight 125 lb Intake: IV Fluids 4190 NS 990 Oral 0 Output: Urine 500 0 Other: # Bowel Movements 0 abdomen distended, slightly less tender Assessment: []diverticulitis, stable, clinically slightly improved, hr elevated, wbc elevated slightly Plan: []close observation, continue abx, may need surgical intervention, re evaluate later today
[2018-08-30] MEDS: Mometasone/Formoter 200/5 MDI INH SCH ×2 (08:38→19:03)
--- NOTE | 2018-08-30 13:58 | PN ---
Subjective Date of Service: 08/30/18 Interval History: HOSPITALIST PROGRESS NOTE Patient seen and examined at bedside. Care reviewed and d/w Jennifer Arshad RN. She feels a little better today. Pain is less intense, denies N/V. No flatus, last BM yesterday. Family History: Unchanged from Admission Social History: Unchanged from Admission Past Medical History: Unchanged from Admission Objective Active Medications: Albuterol (Ventolin 2.5 Mg/3 Ml Neb.Dang*) 2.5 mg INH Q6H PRN PRN Reason: WHEEZING Albuterol (Ventolin Hfa Inhaler*) 2 puff INH Q4H PRN PRN Reason: SHORTNESS OF BREATH Sodium Chloride (Ns 0.9% 1000 Ml) 1,000 mls @ 150 mls/hr IV PER RATE [facility] Last Admin: 08/30/18 08:35 Dose: 150 mls/hr Piperacillin Sod/Tazobactam (Sod 3.375 gm/ Sodium Chloride) 100 mls @ 25 mls/ hr IVPB Q8H [facility] Last Admin: 08/30/18 08:38 Dose: 25 mls/hr Mometasone Furoate/Formoterol Fumar (Dulera 200/5 Mdi*) 2 puff INH BID [facility] Last Admin: 08/30/18 08:38 Dose: 2 puff Morphine Sulfate (Morphine 4 Mg/Ml Vial (1 Ml)) 2 mg IV Q4H PRN PRN Reason: PAIN - MILD Last Admin: 08/30/18 11:59 Dose: 2 mg Pharmacy Consult (Zosyn Per Pharmacy*) 1 note FOLLOW UP .ZOSYN PER PHARMACY [facility] Vital Signs - 8 hr 08/30/18 08/30/18 08/30/18 07:34 07:43 07:45 Temperature 98.5 F Pulse Rate 99 Respiratory 18 18 Rate Blood Pressure 120/62 (mmHg) O2 Sat by Pulse 92 93 Oximetry 08/30/18 08/30/18 11:30 11:59 Temperature 97.9 F Pulse Rate 87 Respiratory 18 18 Rate Blood Pressure 119/52 (mmHg) O2 Sat by Pulse 92 Oximetry Oxygen Devices in Use Now: Nasal Cannula Appearance: Elderly lady sitting up in bed in NAD. Eyes: No Scleral Icterus Ears/Nose/Mouth/Throat: Mucous Membranes Moist Neck: Trachea Midline Respiratory: Symmetrical Chest Expansion and Respiratory Effort, Clear to Auscultation Cardiovascular: RRR - Normal S1 and S2 Abdominal: - - Distended, diffuse mild tenderness, with LLQ tenderness more pronounced, NG, NR, BS+ sluggish Extremities: No Edema Neurological: Alert and Oriented x 3, NL Muscle Strength and Tone Result Diagrams: 08/30/18 05:11 08/30/18 05:11 Assess/Plan/Problems-Billing Assessment: Mrs Spencer is a 73yo F with PMH of asthma, diverticulitis, who presents to ED with c/o abdominal pain; found to have another episode of diverticulitis failed outpatient therapy. - Patient Problems (1) Severe sepsis Comment: - Met severe sepsis criteria on admission with tachycardia/fever and elevated LA. - Resolved. (2) Diverticulitis Comment: - CT showed thickening of the sigmoid colon with possible colonic perforation. - Surgery input appreciated - will continue close f/u, but if no siginificant improvement or worsening, will require surgical intervention. - Continue Zosyn. (3) Asthma Comment: - Stable. - Continue bronchodilators PRN. (4) DVT prophylaxis Comment: - SCDs. (5) Full code status Status and Disposition: Inpatient.
[2018-08-30] MEDS: Polyethylene Glycol 3350* 17 GM PACKET PO SCH (17:02)
[2018-08-30] MEDS: Albuterol HFA INHALER* 8 gm MDI INH PRN (19:03)
--- NOTE | 2018-08-31 00:44 | PN ---
Sepsis Event Evaluation Date of Evaluation: 08/29/18 Time of Evaluation: 15:00 Current Stage of Sepsis: Severe Sepsis Vital Signs - Last 12 Hours: Vital Signs - 12 hr Temp Pulse Resp BP Pulse Ox 08/30/18 22:18 20 08/30/18 19:56 99.0 F 107 18 128/47 90 08/30/18 19:55 99.0 F 107 18 128/47 90 08/30/18 19:03 109 20 92 08/30/18 16:23 18 08/30/18 15:45 98.8 F 112 18 110/52 97 Lactic Acid: 08/29/18 08/29/18 10:10 15:20 Lactic Acid 2.5 H* 1.0 - Cardiopulmonary Exam Capillary Refill: Immediate Respiratory: Symmetrical Chest Expansion and Respiratory Effort, Clear to Auscultation Cardiovascular: NL Sounds; No Murmurs; No JVD, No Edema - Peripheral Pulse Exam Radial Pulses: Bilateral Normal Pedal Pulses: Bilateral Normal Posterior Tibial Pulse: Bilateral Normal - Skin Exam Skin Exam: Normal Turgor - Mackey Coma Scale Best Eye Response: 4 - Spontaneous Best Motor Response: 6 - Obeys Commands Best Verbal Response: 5 - Oriented Coma Scale Total: 15 Assess/Plan/Problems-Billing Assessment: Mrs Spencer is a 73yo F with PMH of asthma, diverticulitis, who presents to ED with c/o abdominal pain; found to have another episode of diverticulitis failed outpatient therapy. - Patient Problems (1) Severe sepsis Current Visit: Yes Status: Acute Code(s): A41.9 - SEPSIS, UNSPECIFIED ORGANISM; R65.20 - SEVERE SEPSIS WITHOUT SEPTIC SHOCK SNOMED Code(s): 09691075 Comment: Continue with admission plan Status and Disposition: Inpatient.
[2018-08-31] MEDS: ZOSYN 3.375 GM Q8H per EXTENDED INFUSION IVPB SCH ×6 (01:09→23:53)
[2018-08-31] MEDS: Albuterol HFA INHALER* 8 gm MDI INH PRN ×2 (01:17→12:42)
[2018-08-31 01:21] LABS: Urine Appearance Turbid; Urine Bacteria 1+ (Absent); Urine Bilirubin Negative (Negative); Urine Blood Negative (Negative); Urine Color Amber; Urine Glucose Negative (Negative); Urine Ketones Negative (Negative); Urine Nitrite Negative (Negative); Urine Protein 2+(100 mg/dL) (Negative); Urine Red Blood Cell Trace(0-2/hpf) (Absent); Urine Specific Gravity 1.031 (1.010-1.030); Urine Urobilinogen Negative (Negative); Urine White Blood Cell Trace(0-5/hpf) (Absent)
[2018-08-31] MEDS: NS 0.9% 1000 ML** 1,000 ML IV SCH (03:02)
[2018-08-31] MEDS: Saline NASAL SPRAY 0.65%* BTL BOTH NARES PRN ×2 (03:36→08:47)
[2018-08-31 06:11] LABS: ABS Lymphocytes 0.5 10^3/ul (1.0-4.8); ABS Monocytes 1.4 10^3/ul (0-0.8); ABS Neutrophils 9.4 10^3/ul (1.5-7.7); Hematocrit 31 % (35-47); Hemoglobin 10.4 g/dL (12.0-16.0); Lymphocyte % 4.1 %; Mean Corpuscular HGB Conc 34 g/dL (31-36); Mean Corpuscular Hemoglobin 29 pg (27-31); Mean Corpuscular Volume 85 fL (80-97); Mean Platelet Volume 7.7 fL (7.4-10.4); Platelet Count 289 10^3/uL (150-450); Red Blood Count 3.61 10^6 /uL (3.70-4.87); Red Cell Distribution Width 15 % (10.5-15); White Blood Count 11.2 10^3/uL (3.5-10.8)
[2018-08-31 06:26] LABS: BUN/Creatinine Ratio 28.8 (8-20); Calcium 7.4 mg/dL (8.6-10.3); EGFR African American 139.9 (>60); EGFR Non-African American 115.6 (>60); Potassium 3.1 mmol/L (3.5-5.0)
[2018-08-31] MEDS: Mometasone/Formoter 200/5 MDI INH SCH (08:28)
[2018-08-31] MEDS: Polyethylene Glycol 3350* 17 GM PACKET PO SCH (08:28)
--- NOTE | 2018-08-31 09:02 | PN ---
Progress Note - Progress Note Date of Service: 08/31/18 SOAP: Subjective: [] small bm this am, not complaining of abdominal pain Objective: [] abdomen soft, distended, tender only to deep palpation Temp Pulse Resp BP Pulse Ox 98.5 F 104 20 119/63 96 08/31/18 07:23 08/31/18 07:23 08/31/18 07:23 08/31/18 07:23 08/31/18 07:23 Laboratory Last Values WBC 11.2 10^3/uL (3.5-10.8) H 08/31/18 05:41 RBC 3.61 10^6 /uL (3.70-4.87) L 08/31/18 05:41 Hgb 10.4 g/dL (12.0-16.0) L 08/31/18 05:41 Hct 31 % (35-47) L 08/31/18 05:41 MCV 85 fL (80-97) 08/31/18 05:41 MCH 29 pg (27-31) 08/31/18 05:41 MCHC 34 g/dL (31-36) 08/31/18 05:41 RDW 15 % (10.5-15) 08/31/18 05:41 Plt Count 289 10^3/uL (150-450) 08/31/18 05:41 MPV 7.7 fL (7.4-10.4) 08/31/18 05:41 Neut % (Auto) 83.7 % 08/31/18 05:41 Lymph % (Auto) 4.1 % 08/31/18 05:41 [place] % (Auto) 12.1 % 08/31/18 05:41 Eos % (Auto) 0.0 % 08/31/18 05:41 Baso % (Auto) 0.1 % 08/31/18 05:41 Absolute Neuts (auto) 9.4 10^3/ul (1.5-7.7) H 08/31/18 05:41 Absolute Lymphs (auto) 0.5 10^3/ul (1.0-4.8) L 08/31/18 05:41 Absolute Monos (auto) 1.4 10^3/ul (0-0.8) H 08/31/18 05:41 Absolute Eos (auto) 0.0 10^3/ul (0-0.6) 08/31/18 05:41 Absolute Basos (auto) 0.0 10^3/ul (0-0.2) 08/31/18 05:41 Absolute Nucleated RBC 0.0 10^3/ul 08/31/18 05:41 Nucleated RBC % 0.0 08/31/18 05:41 Sodium 137 mmol/L (135-145) 08/31/18 05:41 Potassium 3.1 mmol/L (3.5-5.0) L 08/31/18 05:41 Chloride 111 mmol/L (101-111) 08/31/18 05:41 Carbon Dioxide 21 mmol/L (22-32) L 08/31/18 05:41 Anion Gap 5 mmol/L (2-11) 08/31/18 05:41 BUN 15 mg/dL (6-24) 08/31/18 05:41 Creatinine 0.52 mg/dL (0.51-0.95) 08/31/18 05:41 Est GFR ( Amer) 139.9 (>60) 08/31/18 05:41 Est GFR (Non-Af Amer) 115.6 (>60) 08/31/18 05:41 BUN/Creatinine Ratio 28.8 (8-20) H 08/31/18 05:41 Glucose 128 mg/dL (70-100) H 08/31/18 05:41 Lactic Acid 1.0 mmol/L (0.5-2.0) 08/29/18 15:20 Calcium 7.4 mg/dL (8.6-10.3) L 08/31/18 05:41 Magnesium 1.8 mg/dL (1.9-2.7) L 08/29/18 10:10 Total Bilirubin 1.10 mg/dL (0.2-1.0) H 08/29/18 10:10 AST 18 U/L (13-39) 08/29/18 10:10 ALT 16 U/L (7-52) 08/29/18 10:10 Alkaline Phosphatase 78 U/L (34-104) 08/29/18 10:10 Troponin I 0.01 ng/mL (<0.04) 08/29/18 10:10 C-Reactive Protein 225.95 mg/L (<8.01) H 08/29/18 10:10 Total Protein 6.8 g/dL (6.4-8.9) 08/29/18 10:10 Albumin 3.6 g/dL (3.2-5.2) 08/29/18 10:10 Globulin 3.2 g/dL (2-4) 08/29/18 10:10 Albumin/Globulin Ratio 1.1 (1-3) 08/29/18 10:10 Lipase < 10 U/L (11.0-82.0) L 08/29/18 10:10 Urine Color [place] 08/31/18 01:09 Urine Appearance Turbid 08/31/18 01:09 Urine pH 5.0 (5-9) 08/31/18 01:09 Ur Specific [place] 1.031 (1.010-1.030) H 08/31/18 01:09 Urine Protein 2+(100 mg/dl) (Negative) A 08/31/18 01:09 Urine Ketones Negative (Negative) 08/31/18 01:09 Urine Blood Negative (Negative) 08/31/18 01:09 Urine Nitrate Negative (Negative) 08/31/18 01:09 Urine Bilirubin Negative (Negative) 08/31/18 01:09 Urine Urobilinogen Negative (Negative) 08/31/18 01:09 Ur Leukocyte Esterase Negative (Negative) 08/31/18 01:09 Urine WBC (Auto) Trace(0-5/hpf) (Absent) 08/31/18 01:09 Urine RBC (Auto) Trace(0-2/hpf) (Absent) 08/31/18 01:09 Urine Bacteria 1+ (Absent) A 08/31/18 01:09 Urine Yeast Present (Absent) A 08/31/18 01:09 Urine Glucose Negative (Negative) 08/31/18 01:09 Assessment: []diverticulitis-stable continue iv abx, wbc remains the same GI function-small bm this am, constipation, large stool burden on ct scan, ? relative obstruction distally, will order enema with gastrograffin in dept of radiology, which will be both diagnostic and therapeutic Plan: []as above with abx, GG enema
[2018-08-31] MEDS: KCL 20 MEQ/100 ML IVPREMIX* 20 MEQ/100 ML BAG IV SCH ×3 (10:23→17:56)
[2018-08-31] MEDS ORDERED: Ondansetron INJ* 2 MG/ML VIAL IV ONE (14:52)
[2018-08-31] MEDS ORDERED: Ondansetron INJ* 2 MG/ML VIAL ONE (14:53)
[2018-08-31 15:18] LABS: Magnesium 2.1 mg/dL (1.9-2.7)
[2018-08-31] MEDS ORDERED: Adenosine* 3 MG/ML VIAL IV PUSH ONE ×2 (15:38→16:54)
[2018-08-31] MEDS ORDERED: NS 0.9% 1000 ML** 1,000 ML IV ONE (16:00)
[2018-08-31 16:11] LABS: INR 1.24 (0.82-1.09)
[2018-08-31 16:12] LABS: ABS Lymphocytes 0.7 10^3/ul (1.0-4.8); ABS Monocytes 0.3 10^3/ul (0-0.8); ABS Neutrophils 2.4 10^3/ul (1.5-7.7); Eosinophil % 0.1 %; Hematocrit 38 % (35-47); Hemoglobin 12.6 g/dL (12.0-16.0); Lymphocyte % 20.3 %; Mean Corpuscular HGB Conc 33 g/dL (31-36); Mean Corpuscular Hemoglobin 29 pg (27-31); Mean Corpuscular Volume 86 fL (80-97); Mean Platelet Volume 8.1 fL (7.4-10.4); Nucleated Red Blood Cells % 0.4; Platelet Count 413 10^3/uL (150-450); Red Blood Count 4.43 10^6 /uL (3.70-4.87); Red Cell Distribution Width 15 % (10.5-15); White Blood Count 3.4 10^3/uL (3.5-10.8)
--- NOTE | 2018-08-31 16:33 | PN ---
Progress Note - Progress Note Date of Service: 08/31/18 Note: Surgery Progress: S: called to see patient known to our service who underwent gastrograffin enema about 1.5 hr earlier who vomited some purple liquid (had a grape popsicle prior to her study) and has since become tachycardic and tachypneic. Dr. Bojorquez is evaluating her cardiorespiratory status and she has been transferred to the ICU. She was seen with Dr. Sanchez who also conferred w/ Dr. Kapoor re: her abd exam this a.m. Recent PMHx also reviewed with her proxy, Cely. Patient states that the enema study was uncomfortable but did not induce significant abd pain, nor is she in sig abd pain at the present. O: Vital Signs - 8 hr 08/31/18 08/31/18 08/31/18 11:41 14:50 15:46 Temperature 98.4 F 99 F 98.2 F Pulse Rate 99 138 173 Respiratory 20 40 40 Rate Blood Pressure 111/48 144/56 116/84 (mmHg) O2 Sat by Pulse 95 4 91 Oximetry I&O: she is ~ 5-6 liters positive fluid balance Gen: moderate respiratory distress Heart: tachy LUngs: tachypneic; upper adams and R base clear; decreased BS at L base Abd: rounded, distended (apparently similar to her baseline); tympanitic; soft; mild lower, R>L, quadrant tenderness. No guarding or rebound. Labs from this a.m.: Laboratory Tests 08/31/18 08/31/18 05:41 05:41 WBC 11.2 H Hgb 10.4 L Neut % (Auto) 83.7 Potassium 3.1 L Glucose 128 H Magnesium 2.1 Radiology: Exam Date: 08/31/18 1041 ADM Status: ADM IN Order Information: BARIUM ENEMA Accession Number: [id number] CPT: 98269 CPT II Codes: G9500 Indication: Diverticulitis. Approximately 2.1 minutes of fluoroscopy time was used. Gastrografin enema was performed. Approximately 500 mL of water-soluble contrast was placed in the rectum and filled. There is no evidence of obstruction. A large amount of stool is present from the sigmoid colon. No obvious extraluminal contrast is noted. IMPRESSION: No obvious obstruction is noted. A large amount of stool is present throughout the colon. There is contrast in the sigmoid colon and descending colon. Exam Date: 08/31/18 1508 ADM Status: ADM IN Order Information: ABDOMEN/KUB 1 VW Accession Number: [id number] CPT: 54598 Indication: Tachypnea. Flat plate of the abdomen demonstrates residual contrast in the transverse colon. Stool is present throughout. No obvious free air is noted IMPRESSION: Residual contrast noted in the transverse colon. No obstructive pattern is noted. Stool is present throughout. A: tachycardia and tachypneia occurring in proximity to a gastrograffin enema to r/o obstruction or colonic perforation (none seen) P: current management by medical/ICU team; CT chest/abd/pelvis ordered by Dr. Bojorquez which we will follow for any indications for acute surgical intervention.
[2018-08-31 16:34] LABS: ALT 18 U/L (7-52); AST 36 U/L (13-39); Albumin 2.8 g/dL (3.2-5.2); Albumin/Globulin Ratio 0.9 (1-3); Alkaline Phosphatase 78 U/L (34-104); Anion Gap 9 mmol/L (2-11); BUN/Creatinine Ratio 28.1 (8-20); Blood Urea Nitrogen 16 mg/dL (6-24); CO2 Carbon Dioxide 19 mmol/L (22-32); Calcium 8.1 mg/dL (8.6-10.3); Chloride 111 mmol/L (101-111); EGFR African American 125.8 (>60); Glucose 151 mg/dL (70-100); Potassium 3.8 mmol/L (3.5-5.0); Sodium 139 mmol/L (135-145); Total Protein 5.8 g/dL (6.4-8.9)
--- NOTE | 2018-08-31 16:38 | PN ---
Subjective Date of Service: 08/31/18 Interval History: After gastrogaffin enema which she found very uncomfortable (which showed no obstruction but large amount of stool throughout colon and contrast in sigmoid and descending colon) she developed nausea and vomiting of maroon colored liquid (had eaten a grape popsicle prior to the procedure). She was anxious and noted to be tachypneic to 40 and tachycardic to 135. Stat CXR (left effusion, atlectasis though rotated), KUB ordered. Surgery called to help assess. BP 144/56. Requiring 4L for 92% IV zofran 8mg given with relief of nausea. Vitals recheck HR to 170s and transferred to the ICU for adenosine. BP 118/64. Stat labs CMP, CBC, BNP, troponion, lactic acid. 6mg then 12mg of adenosine. Slowed rates briefly and EKG read as Afib though continuous tele did seem to have p waves. 10mg dilt given with good effect. 1L NS bolus. Surgery wanting CT abdomen/pelvis noncontrast when patient stable (will be adding chest as well given suboptimal CXR and her respiratory distress. Family History: Unchanged from Admission Social History: Unchanged from Admission Past Medical History: Unchanged from Admission Objective Active Medications: Albuterol (Ventolin 2.5 Mg/3 Ml Neb.Dang*) 2.5 mg INH Q6H PRN PRN Reason: WHEEZING Albuterol (Ventolin Hfa Inhaler*) 2 puff INH Q4H PRN PRN Reason: SHORTNESS OF BREATH Last Admin: 08/31/18 12:42 Dose: 2 puff Budesonide/Formoterol Fumarate (Symbicort 160/4.5 (Nf)) 2 puff INH BID EMIL; Protocol Piperacillin Sod/Tazobactam (Sod 3.375 gm/ Sodium Chloride) 100 mls @ 25 mls/ hr IVPB Q8H EMIL Last Admin: 08/31/18 08:28 Dose: 25 mls/hr Sodium Chloride (Ns 0.9% 1000 Ml) 1,000 mls @ 100 mls/hr IV PER RATE [facility] Last Admin: 08/31/18 03:02 Dose: 100 mls/hr Diltiazem HCl (Cardizem Iv Advan*) 100 mg in 100 mls @ 2.5 mls/hr IVPB .PER PARAMETERS EMIL; Protocol Morphine Sulfate (Morphine 4 Mg/Ml Vial (1 Ml)) 2 mg IV Q4H PRN PRN Reason: PAIN - MILD Last Admin: 08/30/18 11:59 Dose: 2 mg Ondansetron HCl (Zofran Inj*) 4 mg IV Q6H PRN PRN Reason: NAUSEA Pharmacy Consult (Zosyn Per Pharmacy*) 1 note FOLLOW UP .ZOSYN PER PHARMACY [facility] Polyethylene Glycol/Electrolytes (Miralax*) 17 gm PO 0800,2100 [facility] Last Admin: 08/31/18 08:28 Dose: 17 gm Sodium Chloride (Sodium Chloride 0.65% Nasal [place]*) 1 spray BOTH NARES Q4H PRN PRN Reason: DISCOMFORT Last Admin: 08/31/18 08:47 Dose: 1 nasal.spr Vital Signs - 8 hr 08/31/18 08/31/18 08/31/18 11:41 14:50 15:46 Temperature 98.4 F 99 F 98.2 F Pulse Rate 99 138 173 Respiratory 20 40 40 Rate Blood Pressure 111/48 144/56 116/84 (mmHg) O2 Sat by Pulse 95 4 91 Oximetry Oxygen Devices in Use Now: Nasal Cannula Appearance: Tachycardic, tachycpnic, improved after dilt. Respiratory: - - decreased left base, no wheezing. slight rhonchi Cardiovascular: - - tachycardic with ectopy Abdominal: - - distended, mildly tender to deep palpation of left lower quadrant. Extremities: No Edema Skin: No Rash or Ulcers, No Nodules or Sclerosis Neurological: Alert and Oriented x 3 Nutrition: Taking PO's Result Diagrams: 08/31/18 15:51 08/31/18 05:41 Additional Lab and Data: Laboratory Results - last 24 hr 08/31/18 08/31/18 08/31/18 01:09 05:41 05:41 WBC 11.2 H RBC 3.61 L Hgb 10.4 L Hct 31 L MCV 85 MCH 29 MCHC 34 RDW 15 Plt Count 289 MPV 7.7 Neut % (Auto) 83.7 Lymph % (Auto) 4.1 [place] % (Auto) 12.1 Eos % (Auto) 0.0 Baso % (Auto) 0.1 Absolute Neuts (auto) 9.4 H Absolute Lymphs (auto) 0.5 L Absolute Monos (auto) 1.4 H Absolute Eos (auto) 0.0 Absolute Basos (auto) 0.0 Absolute Nucleated RBC 0.0 Nucleated RBC % 0.0 INR (Anticoag Therapy) Sodium 137 Potassium 3.1 L Chloride 111 Carbon Dioxide 21 L Anion Gap 5 BUN 15 Creatinine 0.52 Est GFR ( Amer) 139.9 Est GFR (Non-Af Amer) 115.6 BUN/Creatinine Ratio 28.8 H Glucose 128 H Lactic Acid Calcium 7.4 L Magnesium 2.1 Total Bilirubin AST ALT Alkaline Phosphatase B-Natriuretic Peptide Total Protein Albumin Globulin Albumin/Globulin Ratio Urine Color [place]via Urine Appearance Turbid Urine pH 5.0 Ur Specific [place] 1.031 H Urine Protein 2+(100 mg/dl) A Urine Ketones Negative Urine Blood Negative Urine Nitrate Negative Urine Bilirubin Negative Urine Urobilinogen Negative Ur Leukocyte Esterase Negative Urine WBC (Auto) Trace(0-5/hpf) Urine RBC (Auto) Trace(0-2/hpf) Urine Bacteria 1+ A Urine Yeast Present A Urine Glucose Negative 08/31/18 08/31/18 08/31/18 05:41 15:51 15:51 WBC 3.4 L RBC 4.43 Hgb 12.6 Hct 38 MCV 86 MCH 29 MCHC 33 RDW 15 Plt Count 413 MPV 8.1 Neut % (Auto) 69.7 Lymph % (Auto) 20.3 [place] % (Auto) 9.8 Eos % (Auto) 0.1 Baso % (Auto) 0.1 Absolute Neuts (auto) 2.4 Absolute Lymphs (auto) 0.7 L Absolute Monos (auto) 0.3 Absolute Eos (auto) 0.0 Absolute Basos (auto) 0.0 Absolute Nucleated RBC 0.0 Nucleated RBC % 0.4 INR (Anticoag Therapy) Sodium 139 Potassium 3.8 Chloride 111 Carbon Dioxide 19 L Anion Gap 9 BUN 16 Creatinine 0.57 Est GFR ( Amer) 125.8 Est GFR (Non-Af Amer) 104.0 BUN/Creatinine Ratio 28.1 H Glucose 151 H Lactic Acid Calcium 8.1 L Magnesium Total Bilirubin 0.40 AST 36 ALT 18 Alkaline Phosphatase 78 B-Natriuretic Peptide 361 H Total Protein 5.8 L Albumin 2.8 L Globulin 3.0 Albumin/Globulin Ratio 0.9 L Urine Color Urine Appearance Urine pH Ur Specific [place] Urine Protein Urine Ketones Urine Blood Urine Nitrate Urine Bilirubin Urine Urobilinogen Ur Leukocyte Esterase Urine WBC (Auto) Urine RBC (Auto) Urine Bacteria Urine Yeast Urine Glucose 08/31/18 08/31/18 08/31/18 15:51 15:51 15:51 WBC RBC Hgb Hct MCV MCH MCHC RDW Plt Count MPV Neut % (Auto) Lymph % (Auto) [place] % (Auto) Eos % (Auto) Baso % (Auto) Absolute Neuts (auto) Absolute Lymphs (auto) Absolute Monos (auto) Absolute Eos (auto) Absolute Basos (auto) Absolute Nucleated RBC Nucleated RBC % INR (Anticoag Therapy) 1.24 H Sodium Potassium Chloride Carbon Dioxide Anion Gap BUN Creatinine Est GFR ( Amer) Est GFR (Non-Af Amer) BUN/Creatinine Ratio Glucose Lactic Acid 2.5 H* Calcium Magnesium Total Bilirubin AST ALT Alkaline Phosphatase B-Natriuretic Peptide 546 H Total Protein Albumin Globulin Albumin/Globulin Ratio Urine Color Urine Appearance Urine pH Ur Specific [place] Urine Protein Urine Ketones Urine Blood Urine Nitrate Urine Bilirubin Urine Urobilinogen Ur Leukocyte Esterase Urine WBC (Auto) Urine RBC (Auto) Urine Bacteria Urine Yeast Urine Glucose Microbiology and Other Data: Microbiology 08/29/18 10:10 Blood Venous Aerobic Blood Culture - Preliminary No Growth Day 2 08/29/18 10:10 Blood Venous Anaerobic Blood Culture - Preliminary No Growth Day 2 08/29/18 10:10 Blood Venous Aerobic Blood Culture - Preliminary No Growth Day 2 08/29/18 10:10 Blood Venous Anaerobic Blood Culture - Preliminary No Growth Day 2 Assess/Plan/Problems-Billing Assessment: Mrs Spencer is a 73yo F with PMH of asthma, mitral valve prolapse, diverticulitis, who presents to ED with c/o abdominal pain; found to have another episode of diverticulitis failed outpatient therapy.Course complicated by SVT w/ suspected underlying Afib w/ RVR, now on cardizem gtt. in ICU - Patient Problems (1) SVT (supraventricular tachycardia) Current Visit: Yes Status: Acute Code(s): I47.1 - SUPRAVENTRICULAR TACHYCARDIA SNOMED Code(s): 0026784 Comment: s/p adenosine 6mg then 12mg. underlying Afib suspected. Known mitral valve prolapse and had ECHO approximately 3 weeks ago though not available in system (Pt is [place] with Dr. Tucker). Her troponin is 0.55. Will get ECHO. (2) Acute respiratory failure with hypoxia Current Visit: Yes Status: Acute Code(s): J96.01 - ACUTE RESPIRATORY FAILURE WITH HYPOXIA SNOMED Code(s): 11506623 Comment: In setting of SVT to 170s, pulmonary effusion (worse on left). CXR suboptimal with rotation. Will scan chest when get CT abd/pelvis noncontrast that surgery desires. (3) Afib Current Visit: Yes Status: Acute Code(s): I48.91 - UNSPECIFIED ATRIAL FIBRILLATION SNOMED Code(s): 68052827 Comment: Dilt gtt, titrate for MAPS>65. HR goal less than 120. Replete lytes Mg>2, K>4. new (4) Diverticulitis Current Visit: Yes Status: Acute Code(s): K57.92 - DVTRCLI OF INTEST, PART UNSP, W/O PERF OR ABSCESS W/O BLEED SNOMED Code(s): 568099843 Comment: - Initial CT showed thickening of the sigmoid colon with possible colonic perforation and foci of free intraperitoneal air. - Continue Zosyn. - no obstruction on gastrogaffin enema but with worsened discomfort and then hemodyna mehrdad instablity with SVT/Afib - CT abd/pelvis noncontrast pending (5) Asthma Current Visit: Yes Status: Acute Code(s): J45.909 - UNSPECIFIED ASTHMA, UNCOMPLICATED SNOMED Code(s): 721818798 Comment: - Stable. not bronchospastic. - Continue bronchodilators PRN. (6) DVT prophylaxis Current Visit: Yes Status: Acute Code(s): Z29.9 - ENCOUNTER FOR PROPHYLACTIC MEASURES, UNSPECIFIED SNOMED Code(s): 976313726 Comment: - SCDs. (7) Severe sepsis Current Visit: Yes Status: Acute Code(s): A41.9 - SEPSIS, UNSPECIFIED ORGANISM; R65.20 - SEVERE SEPSIS WITHOUT SEPTIC SHOCK SNOMED Code(s): 37088170 Comment: - Met severe sepsis criteria on admission with tachycardia/fever and elevated LA. - had resolved but given SVT (tachycarida, tachypnea, and returned lactic acidosis) has returned. (8) Elevated troponin Current Visit: Yes Status: Acute Code(s): R74.8 - ABNORMAL LEVELS OF OTHER SERUM ENZYMES SNOMED Code(s): 237808524 Comment: Initial 0.55. trend q3. likely demand in setting of sepsis and SVT to 170s. EKG with RBBB. denies chest pain. add lipid panel add A1C add atorvastatin 80mg. (9) Full code status Current Visit: Yes Status: Acute Code(s): Z78.9 - OTHER SPECIFIED HEALTH STATUS SNOMED Code(s): 951847932 Status and Disposition: Inpatient. medicine with surgery and critical care consultation
[2018-08-31 16:48] LABS: Troponin I 0.55 ng/mL (<0.04)
[2018-08-31] MEDS ORDERED: Atorvastatin* 80 MG TAB PO ONE (16:50)
[2018-08-31] MEDS ORDERED: Diltiazem IV push/loading dose 5 MG/ML 5 ML vial (25 mg) IV SLOW PU ONE (16:54)
[2018-08-31] MEDS ORDERED: Diltiazem IV VIAL* 125 MG in NS 0.9% 100 ML* 100 ML IV SCH (17:00)
[2018-08-31] MEDS ORDERED: Diltiazem DRIP* 100 MG/100 ML ADDV.BAG IVPB SCH (17:00)
[2018-08-31] MEDS ORDERED: Diltiazem 125 mg in 125 mL NS (continuous infusion) IV SCH (17:00)
[2018-08-31 17:37] LABS: Cholesterol 80 mg/dL; HDL Cholesterol 11.9 mg/dL; LDL Cholesterol 37 mg/dL; Triglycerides 154 mg/dL
[2018-08-31] MEDS ORDERED: Metoprolol Tartrate IV* 1 MG/ML 5 ML VIAL IV ONE (18:30)
--- NOTE | 2018-08-31 18:41 | CONSULT ---
Consult Consult: Consultation Note -- Critical Care Requesting Physician: Dr El Bojorquez Reason for consult: respiratory distress Limitations in history/physical: respiratory distress Date of consult: 08/31/2018 HPI: 73y F w/pmhx of MV prolapse, asthma, recent diverticulitus; presented to ER for abdominal pain and fever x2 days on 08/29. Found to have diverticulitus 15 days prior and was treated with Cipro/flagyl abx PO. Symptoms restarted 2 days prior to admission. Then progressed to nausea/vom. CT abd/pelvis demonstrated small focus of free intraperitoneal air, stool in colon, mucosal thickening of sigmoid colon. She had fever 103, tachycardia, stable BP. She was admitted for abdominal sepsis, started on IVF infusion/bolus, IV abx zosyn. She was seen by surgery, was going to get a gastrograffin study today but afterward vomited, developed respiratory distress and tachycardia to 160s. Transferred to ICU. In ICU, suspected SVT (AVNRT), given adenosine 6mg then 12mg IV push, slowed down to sinus erika transiently. Further EKG I reviewed showed irregular pattern with PVCs, suspect atrial arrhythmia more so than AVNRT. Given Cardizem 10mg IV oblus and HR slowed to 90s with ectopy and some irregularity, BP 80-90s , responded to IVF bolus. She was on oximask 15L, tachypneic, some acc muscle use, mottling in LE noted. Patient felt better, shortly after now trialed NIV to decrease work of breathing. She wore for an hour but then removed it, back on oximask, still has tachypnea but feels better, does not seem as severe as prior but there is evidence work of breathing. ROS: negative except for pertinent positives mentioned above; some Limitation in ROS initiatlly due to severe resp distress but she can answer questions now PMHx: MV prolapse, asthma, GERD, diverticulitus PSHx: cataract surgery Family History: Mother CHF; father heart disease, DM. Social History: Alcohol-denies use, Smoking-quit smoking 20yrs prior, Drug use- denies use; widows, lives with friend. Allergies: Sulfa, advair Home Medications: Atorvastatin* [Lipitor*] 20 mg PO 1700 09/30/16 [History Confirmed 08/29/18] Budesonide/Formote 160/4.5(NF) [Symbicort 160/4.5 (NF)] 2 puff INH BID 09/30/16 [History Confirmed 08/29/18] Famotidine [Pepcid] 20 mg PO DAILY PRN 09/30/16 [History Confirmed 08/29/18] Multiple Vitamins W/ Minerals [Womens Multivitamin] 1 tab PO QAM 09/30/16 [ History Confirmed 08/29/18] Triamcinolone NASAL SPRAY* [Nasacort AQ Nasal [place]*] 1 puff NASAL QAM 09/30/16 [History Confirmed 08/29/18] Acetaminophen TAB* [Tylenol TAB*] 325 mg PO Q4H PRN 10/05/16 [History Confirmed 08/29/18] Albuterol 2.5MG/3ML (0.083%)* [Ventolin 2.5 MG/3 ML NEB.LAYA*] 2.5 mg INH Q6H PRN 08/29/18 [History Confirmed 08/29/18] Albuterol HFA INHALER* [Ventolin HFA Inhaler*] 2 puff INH Q4H PRN 08/29/18 [ History Confirmed 08/29/18] Estrogens, Conjugated [Premarin] 0.625 mg PO WEEKLY 08/29/18 [History Confirmed 08/29/18] Hydrocortisone 2.5% CREAM(NF) 1 applic TOPICAL BID 08/29/18 [History Confirmed 08/29/18] Melatonin [Meladox] 3 mg PO BEDTIME 08/29/18 [History Confirmed 08/29/18] Tele: appears to be afib, irreg, sometimes sinus appearing Vitals: Vital Signs Temp 97.1 F 08/31/18 16:02 Pulse 132 08/31/18 18:06 Resp 41 08/31/18 18:06 BP 118/84 08/31/18 16:02 Pulse Ox 96 08/31/18 18:06 Intake & Output 08/30/18 08/31/18 08/31/18 18:59 06:59 18:59 Intake Total 1791 1215 Output Total 400 350 0 Balance 1391 865 0 Intake: IV Fluids 1526 1095 ABX - ZOSYN 105 NS 1526 990 IVPB 215 ABX - ZOSYN 215 Oral 50 120 Output: Urine 400 350 0 Other: Estimated Void Medium # Bowel Movements 1 O2/Vent: oximask 15L/min Infusions: cardizem 15mg/hr , NS infusion/bolus Current Medications: Albuterol (Ventolin 2.5 Mg/3 Ml Neb.Laya*) 2.5 mg INH Q6H PRN PRN Reason: WHEEZING Albuterol (Ventolin Hfa Inhaler*) 2 puff INH Q4H PRN PRN Reason: SHORTNESS OF BREATH Last Admin: 08/31/18 12:42 Dose: 2 puff Budesonide/Formoterol Fumarate (Symbicort 160/4.5 (Nf)) 2 puff INH BID [facility]; Protocol Piperacillin Sod/Tazobactam (Sod 3.375 gm/ Sodium Chloride) 100 mls @ 25 mls/ hr IVPB Q8H [facility] Last Admin: 08/31/18 08:28 Dose: 25 mls/hr Diltiazem HCl 125 mg/ Sodium (Chloride) 125 mls @ 2.5 mls/hr IV Q24H [facility]; Protocol Last Admin: 08/31/18 17:04 Dose: 5 mls/hr Metoprolol Tartrate (Lopressor Iv*) 5 mg IV ONCE ONE Stop: 08/31/18 18:31 Last Admin: 08/31/18 18:37 Dose: 5 mg Morphine Sulfate (Morphine 4 Mg/Ml Vial (1 Ml)) 2 mg IV Q4H PRN PRN Reason: PAIN - MILD Last Admin: 08/30/18 11:59 Dose: 2 mg Ondansetron HCl (Zofran Inj*) 4 mg IV Q6H PRN PRN Reason: NAUSEA Pantoprazole Sodium (Protonix Iv*) 40 mg IV Q12H [facility] Pharmacy Consult (Zosyn Per Pharmacy*) 1 note FOLLOW UP .ZOSYN PER PHARMACY [facility] Polyethylene Glycol/Electrolytes (Miralax*) 17 gm PO 0800,2100 [facility] Last Admin: 08/31/18 08:28 Dose: 17 gm Sodium Chloride (Sodium Chloride 0.65% Nasal [place]*) 1 spray BOTH NARES Q4H PRN PRN Reason: DISCOMFORT Last Admin: 08/31/18 08:47 Dose: 1 nasal.spr Triamcinolone Acetonide (Nasacort Aq Nasal [place]*) 1 spray BOTH NARES QAM [facility] Physical Exam: Constitutional: awake, alert, ++ resp distress, no diaphoresis Head: normocephalic, atraumatic Eyes: no pallor, no icterus ENT: moist mucous membranes Neck: soft, supple, no jvd, no stridor CVS: tachy, regular/irreg, no murmur Resp: bilateral air entry, no rhales, no wheeze, Rided sided rhonchi++, + acc muscle use initially Abdomen/GI: soft, nontender, nondistended, BS+ Ext/Msk: warm, pulses+, no edema Skin: intact, warm; mottling at knees bilaterally+ Neuro: awake, alert, orientedx3, moving all extremities Labs: Laboratory Results - last 24 hr 08/31/18 08/31/18 08/31/18 01:09 05:41 05:41 WBC 11.2 H RBC 3.61 L Hgb 10.4 L Hct 31 L MCV 85 MCH 29 MCHC 34 RDW 15 Plt Count 289 MPV 7.7 Neut % (Auto) 83.7 Lymph % (Auto) 4.1 [place] % (Auto) 12.1 Eos % (Auto) 0.0 Baso % (Auto) 0.1 Absolute Neuts (auto) 9.4 H Absolute Lymphs (auto) 0.5 L Absolute Monos (auto) 1.4 H Absolute Eos (auto) 0.0 Absolute Basos (auto) 0.0 Absolute Nucleated RBC 0.0 Nucleated RBC % 0.0 INR (Anticoag Therapy) Sodium 137 Potassium 3.1 L Chloride 111 Carbon Dioxide 21 L Anion Gap 5 BUN 15 Creatinine 0.52 Est GFR ( Amer) 139.9 Est GFR (Non-Af Amer) 115.6 BUN/Creatinine Ratio 28.8 H Glucose 128 H Lactic Acid Calcium 7.4 L Magnesium 2.1 Total Bilirubin AST ALT Alkaline Phosphatase Troponin I B-Natriuretic Peptide Total Protein Albumin Globulin Albumin/Globulin Ratio Triglycerides Cholesterol LDL Cholesterol HDL Cholesterol Urine Color [place]via Urine Appearance Turbid Urine pH 5.0 Ur Specific [place] 1.031 H Urine Protein 2+(100 mg/dl) A Urine Ketones Negative Urine Blood Negative Urine Nitrate Negative Urine Bilirubin Negative Urine Urobilinogen Negative Ur Leukocyte Esterase Negative Urine WBC (Auto) Trace(0-5/hpf) Urine RBC (Auto) Trace(0-2/hpf) Urine Bacteria 1+ A Urine Yeast Present A Urine Glucose Negative 08/31/18 08/31/18 08/31/18 05:41 15:51 15:51 WBC 3.4 L RBC 4.43 Hgb 12.6 Hct 38 MCV 86 MCH 29 MCHC 33 RDW 15 Plt Count 413 MPV 8.1 Neut % (Auto) 69.7 Lymph % (Auto) 20.3 [place] % (Auto) 9.8 Eos % (Auto) 0.1 Baso % (Auto) 0.1 Absolute Neuts (auto) 2.4 Absolute Lymphs (auto) 0.7 L Absolute Monos (auto) 0.3 Absolute Eos (auto) 0.0 Absolute Basos (auto) 0.0 Absolute Nucleated RBC 0.0 Nucleated RBC % 0.4 INR (Anticoag Therapy) Sodium 139 Potassium 3.8 Chloride 111 Carbon Dioxide 19 L Anion Gap 9 BUN 16 Creatinine 0.57 Est GFR ( Amer) 125.8 Est GFR (Non-Af Amer) 104.0 BUN/Creatinine Ratio 28.1 H Glucose 151 H Lactic Acid Calcium 8.1 L Magnesium Cancelled Total Bilirubin 0.40 AST 36 ALT 18 Alkaline Phosphatase 78 Troponin I 0.55 H* B-Natriuretic Peptide 361 H Total Protein 5.8 L Albumin 2.8 L Globulin 3.0 Albumin/Globulin Ratio 0.9 L Triglycerides 154 Cholesterol 80 LDL Cholesterol 37 HDL Cholesterol 11.9 Urine Color Urine Appearance Urine pH Ur Specific [place] Urine Protein Urine Ketones Urine Blood Urine Nitrate Urine Bilirubin Urine Urobilinogen Ur Leukocyte Esterase Urine WBC (Auto) Urine RBC (Auto) Urine Bacteria Urine Yeast Urine Glucose 08/31/18 08/31/18 08/31/18 15:51 15:51 15:51 WBC RBC Hgb Hct MCV MCH MCHC RDW Plt Count MPV Neut % (Auto) Lymph % (Auto) [place] % (Auto) Eos % (Auto) Baso % (Auto) Absolute Neuts (auto) Absolute Lymphs (auto) Absolute Monos (auto) Absolute Eos (auto) Absolute Basos (auto) Absolute Nucleated RBC Nucleated RBC % INR (Anticoag Therapy) 1.24 H Sodium Potassium Chloride Carbon Dioxide Anion Gap BUN Creatinine Est GFR ( Amer) Est GFR (Non-Af Amer) BUN/Creatinine Ratio Glucose Lactic Acid 2.5 H* Calcium Magnesium Total Bilirubin AST ALT Alkaline Phosphatase Troponin I B-Natriuretic Peptide 546 H Total Protein Albumin Globulin Albumin/Globulin Ratio Triglycerides Cholesterol LDL Cholesterol HDL Cholesterol Urine Color Urine Appearance Urine pH Ur Specific [place] Urine Protein Urine Ketones Urine Blood Urine Nitrate Urine Bilirubin Urine Urobilinogen Ur Leukocyte Esterase Urine WBC (Auto) Urine RBC (Auto) Urine Bacteria Urine Yeast Urine Glucose Imaging: CT abd 08/29 - small focus of free intraperitoneal air, stool in colon, mucosal thickening of sigmoid colon CXR 08/31- left effusion, atelectasis+ KUB 08/31 contrast+, stool+ Assessment: 73y F w/pmhx of MV prolapse, asthma, recent diverticulitus; presented to ER for abdominal pain and fever x2 days on 08/29. Found to have diverticulitus 15 days prior and was treated with Cipro/flagyl abx PO. Symptoms restarted 2 days prior to admission. Then progressed to nausea/vom. CT abd/ pelvis demonstrated small focus of free intraperitoneal air, stool in colon, mucosal thickening of sigmoid colon. She had fever 103, tachycardia, stable BP. She was admitted for abdominal sepsis, started on IVF infusion/bolus, IV abx zosyn. She was seen by surgery, was going to get a gastrograffin study today but afterward vomited, developed respiratory distress and tachycardia to 160s. Transferred to ICU 08/31. Given adenosine for SVT, then Cardizem for possible Atrial Fib with RVR, remains with tachypnea. -Acute Hypoxic Respiratory Failiure -Suspected AFib with RVR -Suspected Aspiration pneumonitis -Acute perforated diverticulitus -Severe Sepsis 2/2 to aspiration and diverticulitis Plan: Neuro- -awake, alert, follows commands -Delirium prec; avoid BDZ CVS- -BP improved with bolus, slight drop with Cardizem push -remains tachycardic, appears to be atrial arrhythmia but may be ppted by resp distress/aspiration -maintain Cardizem infusion -maintain NS infusion/bolus as needed -IV abx -trend LA, suspect elevation from SIRS and tachycardia/hypoperfusion -Maintain MAP>65 Resp- -hypoxic/increased work of breathing; monitor closely; trial of NIV but took off , but seems slightly better -will re-eval NIV but any vomiting further will have to likely proceed to intubate to protect airway or even intubate if worsening resp status -aspiration vs progressive sepsis from abd? Metabolic demand? -CT chest pending -cont IV abx -ABG once back from CT -Wean Fio2 to keep sat>92% -Bronchodilators PRN, Aspiration prec ID- afebrile now. Wbc 11-3.4 now -CT with thickened sigmoid, free air 08/29; suspected diverticulitus with perforation -IV zosyn started 08/29, continue for abd coverage -repeat CT pending for abd/chest GI- -NPO -Repeat CT abd/pelvis -Surgery following -IV abx for diverticulitus/abd coverage -GI prophylaxis ppi IV -prn antiemetics Renal- -Cr okay; K was 3.1 in AM; now 3.8 -follow urine output; NS bolus 1 liter going in -strict I/O, replete to keep K>4, Mg>2 -wall as indicated Heme- -hg stable 12 -plt stable -DVT proph will need chemical proph, pending CT imaging for possible OR Endo- Maintain BG<200, insulin protocol as needed Musculsk- pressure ulcer prophylaxis. Bedrest. Wounds- none Nutrition- NPO DVT prophylaxis:SCD GI prophylaxis:ppi Central Line:no Arterial Line:no Wall Cathetor:no Disposition: Patient requires Critical Care/ICU for acute respiratory failure/ hypoxia, arrhythmia, severe sepsis Patient Clinical Status: critical, guarded Code Status: full code Total Critical Care time is 50 minutes, excluding procedures/teaching Eduar Echavarria MD Risk Compliance Manager (Electronically Signed)
[2018-08-31] MEDS ORDERED: Succinylcholine* 20 MG/ML 10 ML VIAL ONE (19:00)
[2018-08-31] MEDS ORDERED: Pantoprazole IV* 40 MG IV SCH (19:00)
--- NOTE | 2018-08-31 19:18 | PN ---
Progress Note - Progress Note Date of Service: 08/31/18 Note: Code Note patient went unresponsive, no pulse, PEA arrest CPR started ROSC after <5min EPI, bicarb given back to sinus tachy rhythm, moving spontaneously intubated by ER physican with glidescope on first attempt Pulse +; BP 120s, then 80s, started on NS bolus and levophed discontinued cardizem infusion versed 2mg IV push for sedation Suspected component of respiratory arrest Though she appeared less distressed earlier, she likely acute decompensated Noted she didnt want NIV earlier. I was code leader Eduar Echavarria MD data deliverables manager
[2018-08-31] MEDS ORDERED: Midazolam* 1 MG/ML 2 ML VIAL (2 MG) IV SLOW PU ONE ×3 (19:30→20:25)
[2018-08-31] MEDS ORDERED: VASOPRESSIN 20 UNITS/ML 1 ML VIAL ONE ×2 (19:43→19:44)
[2018-08-31] MEDS ORDERED: EPINEPHrine SYR 0.1MG/ML* SYRINGE IV ONE (19:43)
[2018-08-31] MEDS ORDERED: NS 0.9% 500 ML* 500 ML IV ONE (19:44)
[2018-08-31] MEDS ORDERED: fentaNYL* 50 MCG/ML 2 ML VIAL (100 MCG VIAL) IV ONE (19:48)
[2018-08-31] MEDS ORDERED: Etomidate* 2 MG/ML 10 ML VIAL ONE (19:49)
[2018-08-31] MEDS ORDERED: EPINEPHrine SYR 0.1MG/ML* SYRINGE ONE (19:49)
[2018-08-31] MEDS ORDERED: KETAMINE HCL* 50 MG/ML 10 ML VIAL ONE (19:51)
[2018-08-31] MEDS ORDERED: Phenylephrine 10 MG/ML VIAL* 1 ML VIAL ONE (19:53)
[2018-08-31] MEDS ORDERED: Rocuronium* 10 MG/ML VIAL ONE (19:58)
[2018-08-31] MEDS: PTO:Budesonide/Formote 160/4.5(NF) MDI INH SCH (19:58)
[2018-08-31] MEDS ORDERED: Ondansetron INJ* 2 MG/ML VIAL IV PRN (20:00)
[2018-08-31] MEDS ORDERED: Pantoprazole* 80 mg IN NS 80 MG/250 ML BAG IVPB SCH (20:00)
--- NOTE | 2018-08-31 20:16 | PN ---
Progress Note - Progress Note Date of Service: 08/31/18 Note: Central Line Procedure Note Indication: venous access Diagnosis: cardiac arrest, respiratory arrest, septic shock Performed by: Eduar Echavarria MD Consent: Emergent [place] Protocol: Time-out was performed and the correct patient and site were verified - Prior labs/history was reviewed prior to procedure - Full sterile precautions with chlorhexidine/full drapes/gowns/gloves utilized - Right femoal vein visualized with ultrasound - Vessel accessed under ultrasound guidance with return of nonpulsatile blood. A guidewire was passed into vessel and confirmed in vessel with ultrasound. 1 attempt was made to access vessel. Vessel was dilated and cathetor was passed over wire into vessel. All ports demonstrated good blood return and flushed. Catheter was sutured to site and dressing applied. Adequate hemostasis was achieved EBL <5 cc No immediate complications noted, patient tolerated procedure well. Post Procedure CXR: not required, femoral line Eduar Echavarria MD Hazmat Technician (Electronically Signed)
[2018-08-31] MEDS ORDERED: Pantoprazole IV* 40 MG IV ONE (20:30)
--- NOTE | 2018-08-31 20:35 | PN ---
Progress Note - Progress Note Date of Service: 08/31/18 Note: Arterial Line Procedure Note Indication: frequent arterial blood gases , invasive hemodynamic monitoring Diagnosis: cardiac arrest, respiratory arrest, septic shock Performed by: Eduar Echavarria MD Consent: Emergent [place] Protocol: Time-out was performed and the correct patient and site were verified - Prior labs/history was reviewed prior to procedure - Full sterile precautions with chlorhexidine/full drapes/gowns/gloves utilized - Right femoral artery visualized with US - Vessel accessed with return of pulsatile blood. One attempt was made to access vessel. A cathetor was threaded over wire into vessel. Good arterial waveform was observed on monitor. - Arterial Catheter was sutured to site; dressing applied to site. EBL <5 cc No immediate complications noted, patient tolerated procedure well. Eduar Echavarria MD Central Office Inspector (Electronically Signed)
[2018-08-31 20:50] LABS: ABS Lymphocytes 0.4 10^3/ul (1.0-4.8); ABS Monocytes 0.9 10^3/ul (0-0.8); ABS Neutrophils 7.6 10^3/ul (1.5-7.7); Eosinophil % 0.1 %; Hematocrit 35 % (35-47); Hemoglobin 11.3 g/dL (12.0-16.0); Lymphocyte % 4.2 %; Mean Corpuscular HGB Conc 32 g/dL (31-36); Mean Corpuscular Hemoglobin 28 pg (27-31); Mean Corpuscular Volume 86 fL (80-97); Mean Platelet Volume 8.1 fL (7.4-10.4); Nucleated Red Blood Cells % 0.4; Platelet Count 409 10^3/uL (150-450); Red Blood Count 4.03 10^6 /uL (3.70-4.87); Red Cell Distribution Width 15 % (10.5-15); White Blood Count 8.9 10^3/uL (3.5-10.8)
[2018-08-31 21:02] LABS: ALT 16 U/L (7-52); AST 32 U/L (13-39); Albumin 2.1 g/dL (3.2-5.2); Albumin/Globulin Ratio 0.9 (1-3); Alkaline Phosphatase 57 U/L (34-104); BUN/Creatinine Ratio 30.3 (8-20); Blood Urea Nitrogen 20 mg/dL (6-24); CO2 Carbon Dioxide 17 mmol/L (22-32); EGFR African American 106.2 (>60); EGFR Non-African American 87.8 (>60); Globulin 2.3 g/dL (2-4); Glucose 118 mg/dL (70-100); Potassium 4.3 mmol/L (3.5-5.0); Sodium 141 mmol/L (135-145); Total Protein 4.4 g/dL (6.4-8.9)
[2018-08-31 21:07] LABS: Anion Gap 6 mmol/L (2-11); Chloride 118 mmol/L (101-111); Troponin I 1.15 ng/mL (<0.04)
--- NOTE | 2018-08-31 22:35 | BRIEFOPN ---
Brief Operative Note - Surgery Procedures: OPERATIVE REPORT Pre-op: Sepsis, peritonitis Post-Op: Same, perforated sigmoid colon with purulent peritonitis Procedure:Exploratory laparotomy, sigmoid colon resection; Open abdomen with Wound Vac placement, Surgeon: MD Daniel Asst: KRISH Browning Anes: general Dr. Layne IVF:1 liter of crystalloid EBL:50 cc's Specimen: Sigmoid colon Drain: None Wound: $ To ICU, intubated
[2018-08-31] MEDS: fentaNYL INFUSION 50 MCG/ML* 2,500 MCG/50 ML BAG IV SCH (23:31)
[2018-08-31] MEDS: Norepinephrine 16MCG/ML IVPRE* 4,000 MCG/250 ML BAG IV SCH (23:33)
[2018-08-31] MEDS: Midazolam IV DRIP 100 MG in NS 0.9% IV SCH (23:41)
[2018-09-01] MEDS: Norepinephrine 16MCG/ML IVPRE* 4,000 MCG/250 ML BAG IV SCH ×2 (00:14→12:36)
[2018-09-01] MEDS ORDERED: NS 0.9% 1000 ML** 1,000 ML IV ONE ×2 (01:08→19:26)
[2018-09-01] MEDS ORDERED: NS 0.9% 1000 ML** 1,000 ML IV SCH (01:15)
--- NOTE | 2018-09-01 01:36 | PN ---
Progress Note - Progress Note Date of Service: 09/01/18 Note: Pt was seen post op. RN noted no breath sounds on L. PCXR shows no abnormalities in lungs, good ET position. Pt is on Levophed at 27mcg. On Versed and Fentanyl for sedation. ABG shows resp acidosis with Ph 7.1 IVF started and 1l bolus given. After evaluation with RT, RR rate and TV was increased and pt breath sounds were back on left. Suspect mucus plug that resolved after increase in TV.
[2018-09-01] MEDS: ZOSYN 3.375 GM Q8H per EXTENDED INFUSION IVPB SCH ×6 (02:44→17:06)
--- NOTE | 2018-09-01 04:03 | OP ---
CC: Dr. Sophie Tucker of [facility] * DATE OF OPERATION: 08/31/18 - ROOM #ICU-07 DATE OF : 45 SURGEON: Demetrius Sanchez MD STEM CRUSHER: KRISH Santos ANESTHESIOLOGIST: Dr. Layne. ANESTHESIA: General. PRE-OP DIAGNOSIS: Sepsis with peritonitis. POST-OP DIAGNOSES: 1. Sepsis with peritonitis. 2. Perforated sigmoid colon with peritonitis. OPERATIVE PROCEDURE: Exploratory laparotomy, sigmoid colectomy with wound VAC placement, and open abdomen. ESTIMATED BLOOD LOSS: Less than 50 mL. IV FLUIDS: 1 L of crystalloid. SPECIMENS: Sigmoid colon. WOUND CLASSIFICATION: 4. DRAINS: None. FINDINGS: The patient had a markedly distended distal descending and proximal and mid sigmoid colon that was packed with stool. There were some diverticula, however, they did not have the classic appearance of diverticular perforation and appeared to be possibly more of a stercoral perforation. There was pus in all 4 abdominal quadrants. BRIEF HISTORY: Ms. Darline Spencer is a 73-year-old woman who was admitted to the hospital 48 hours ago with several weeks of abdominal pain and distention. She had an undergone a CAT scan at an outside facility, which showed diverticulitis. She was treated with oral antibiotic without improvement. She presented to the emergency room and has had a repeat CT scan, which showed a markedly distended sigmoid and descending colon with stool, possible inflammatory change and she was admitted and started on IV antibiotics. At that point, her white blood cell count was normal and she had only mild abdominal tenderness and has remained afebrile without evidence of tachycardia. Today, a Gastrografin enema was performed to rule out a distal obstruction as the CAT scan was not completely consistent with acute diverticulitis. After the study was done, however, she developed significant tachycardia and tachypnea with shortness of breath and was transferred to the intensive care unit. She subsequently required fluid resuscitation and required intubation. A followup CT scan, although difficult to read, showed small amount of extra- luminal air, which had been present on the previous CT scan as well as intraabdominal fluid. Due to her clinical status and abdominal distention, I felt an exploratory laparotomy was indicated to rule out intraabdominal source of sepsis. The patient was not able to make her own decisions at this point, but she had her healthcare proxy, Cely Dumont, who was present in the room and at this time, plan will be an emergent exploratory laparotomy. I discussed the procedure with her in detail, and the risks of, but not limited to bleeding, infection, intraabdominal abscess formation, injury to peritoneal and retroperitoneal structures, abscess formation, possibility of an ostomy/ i.e. colostomy and/or ileostomy were also discussed. We discussed the treatment may be in stages with return trips to the operating room depending on clinical findings and her clinical course. Also, we discussed the possibility of sepsis with respiratory failure/acute renal failure and cardiac failure with as a possibility. In light of the acuity, she gives consent and we will proceed this evening. DESCRIPTION OF PROCEDURE: Written informed consent was obtained, the abdomen was marked with indelible ink. The patient was taken to the operating room, placed in the supine position. Sequential compression devices and a Frost catheter had previously been inserted. Oral gastric tube was inserted. Anesthesia was administered. She had previously a triple-lumen catheter as well as an arterial catheter was placed in the intensive care unit. The abdomen was prepped and draped in the usual sterile fashion. Time-out verification was completed. Initially, a midline incision centered above the umbilicus was made and carried down and the abdominal cavity was then entered. Here, there was a markedly large amount of foul smelling purulent fluid in all 4 quadrants. It was obvious that there was a significantly distended sigmoid colon that was adherent to the anterior abdominal wall due to the inflammatory process and this was freed up. The peritoneal fluid was sent for culture. Carefully, the sigmoid colon was then mobilized from the adhesions. There was a loop of mid small bowel that was very adherent to an area and this was pinched off from the mesentery, and this exposed a large hole in the colon in the sigmoid area with large amount of alma-like, firm stool exposed and this appeared to be the area of the pathology. There were some diverticula in the sigmoid colon, but there did not appear to be a classic diverticulitis type picture. This also did not appear to be a malignancy, however, and the specimen was sent to pathology. The acute adhesions, which were from the small bowel mesentery and small bowel to the colon, were then taken down sharply and the small bowel was run from the ligament of Treitz to the cecum. This appeared to be unremarkable other than an inflammatory process where it was adherent to the sigmoid colon, but was viable without evidence of perforation or unusual pathology. The appendix appeared to be unremarkable. The right colon was distended as well as the transverse colon, but it was viable. The rectum also was unremarkable and it was actually with normal caliber and soft and supple. Uterus and ovaries were visualized and were normal. The liver was healthy as was the gallbladder along with the stomach. Decision was then made to resect this involved part of the sigmoid colon. An area on the very proximal rectum was identified and the MACY-80 stapler was used to divide this here. We used the LigaSure to divide the mesentery of the sigmoid and proximal descending colon moving more proximally to an area where the descending colon was softer and supple and not involved with the process and once again, this was divided here with another load of the MACY-80 stapler. We then irrigated all 4 quadrants of abdomen with about 6 to 7 L of warm saline. At this point, I made a decision not to proceed with the colostomy and the proximal descending colon was placed up into the left upper quadrant. An [place]oban membrane was then folded upon itself and "pie-crusted", i.e. slits were made with a #15 blade knife. The omentum was placed over the small bowel and then this Ioban was placed over the omentum deep to the abdominal wall to cover the viscera. A wound VAC was then placed to pin puller the Ioban visceral protector to pull the abdominal fascia and skin together and placed a 15 mmHg pressure. The patient tolerated the procedure well and was taken to the intensive care unit and stable, but critical condition. [id number]/[facility] #: [id number] JONNIE
[2018-09-01 06:59] LABS: Hematocrit 41 % (35-47); Hemoglobin 13.1 g/dL (12.0-16.0); Mean Corpuscular HGB Conc 32 g/dL (31-36); Mean Corpuscular Hemoglobin 28 pg (27-31); Mean Corpuscular Volume 87 fL (80-97); Platelet Count 421 10^3/uL (150-450); Red Blood Count 4.74 10^6 /uL (3.70-4.87); Red Cell Distribution Width 16 % (10.5-15)
[2018-09-01 07:00] LABS: Troponin I 0.97 ng/mL (<0.04)
[2018-09-01 07:12] LABS: Potassium 4.2 mmol/L (3.5-5.0); Sodium 143 mmol/L (135-145)
[2018-09-01] MEDS: Polyethylene Glycol 3350* 17 GM PACKET PO SCH ×3 (07:30→20:30)
[2018-09-01] MEDS: Vasopressin* 100 UNITS in D5W 250 ML BAG* 245 ML IVPB SCH ×2 (07:30→23:30)
[2018-09-01] MEDS: PTO:Budesonide/Formote 160/4.5(NF) MDI INH SCH ×2 (08:02→19:32)
[2018-09-01 08:03] LABS: Albumin 1.9 g/dL (3.2-5.2)
[2018-09-01 08:09] LABS: Phosphorus 3.1 mg/dL (2.5-5.0)
[2018-09-01] MEDS ORDERED: Pantoprazole IV* 40 MG IV SCH (08:30)
[2018-09-01 08:38] LABS: ALT 21 U/L (7-52); AST 55 U/L (13-39); Albumin/Globulin Ratio 0.9 (1-3); Alkaline Phosphatase 56 U/L (34-104); Anion Gap 9 mmol/L (2-11); BUN/Creatinine Ratio 33.3 (8-20); Blood Urea Nitrogen 25 mg/dL (6-24); CO2 Carbon Dioxide 12 mmol/L (22-32); Calcium 6.2 mg/dL (8.6-10.3); Chloride 122 mmol/L (101-111); EGFR African American 91.7 (>60); EGFR Non-African American 75.7 (>60); Globulin 2.1 g/dL (2-4); Glucose 93 mg/dL (70-100); Indirect Bilirubin 0.3 mg/dL (0.3-1.0)
--- NOTE | 2018-09-01 09:34 | PN ---
Progress Note - Progress Note Date of Service: 09/01/18 SOAP: Subjective: Sedated on ventilator Events of last night noted Remains on Levophed Objective: Temp Pulse Resp BP Pulse Ox 100.4 F 120 21 93/41 99 09/01/18 09:00 09/01/18 08:01 09/01/18 09:00 09/01/18 08:01 09/01/18 08:01 Intake & Output 08/30/18 08/31/18 09/01/18 09/02/18 06:59 06:59 06:59 06:59 Intake Total 4190 3006 3405 425 Output Total 821 447 6779 45 Balance 3690 2256 2250 380 Weight 125 lb 148 lb 9.465 oz Intake: IV Fluids 4190 2621 2354 425 ABX - ZOSYN 105 NS 990 2516 2354 425 IVPB 215 97 ABX - ZOSYN 215 97 Medicated IV 954 CC - Norepinephrine/ 954 Levophed Oral 0 170 0 Output: NG Tube Drainage Amount 350 Wound Vac 200 Urine 500 750 0 Frost 255 45 Liquid Stool 300 Estimated Blood Loss 50 Other: Estimated Void Small Date of Last Bowel T Movement # Bowel Movements 0 1 1 Estimated Stool Amount Medium # Voids 1 PEX: Sedated on ventilator Comfortable Abd is soft and slightly distended. Wound vac in place-intact, minimal drainage Temp Pulse Resp BP Pulse Ox 100.4 F 120 21 93/41 99 09/01/18 09:00 09/01/18 08:01 09/01/18 09:00 09/01/18 08:01 09/01/18 08:01 Intake & Output 08/30/18 08/31/18 09/01/18 09/02/18 06:59 06:59 06:59 06:59 Intake Total 4190 3006 3405 425 Output Total 311 040 7301 45 Balance 3690 2256 2250 380 Weight 125 lb 148 lb 9.465 oz Intake: IV Fluids 4190 2621 2354 425 ABX - ZOSYN 105 NS 990 2516 2354 425 IVPB 215 97 ABX - ZOSYN 215 97 Medicated IV 954 CC - Norepinephrine/ 954 Levophed Oral 0 170 0 Output: NG Tube Drainage Amount 350 Wound Vac 200 Urine 500 750 0 Frost 255 45 Liquid Stool 300 Estimated Blood Loss 50 Other: Estimated Void Small Date of Last Bowel T Movement # Bowel Movements 0 1 1 Estimated Stool Amount Medium # Voids 1 Assessment: POD#1 s/p exlap sigmoid colon resection--open abdomen, no ostomy created Severe sepsis She will require return to OR for "wash out" and ostomy in next 24-48 hours. If condition worsens, may require sooner return to OR for exploration. Plan: IV abx Ventilator management Wound vac Fluid resuscitation, continue Levophed Discussed with Dr. Echavarria and her health care proxy.
[2018-09-01] MEDS ORDERED: Sodium Bicarbonate 8.4% IV* 50 ML VIAL IV ONE (09:49)
[2018-09-01] MEDS ORDERED: Lactated Ringers 1000 ML Bag* 1,000 ML IV SCH ×3 (10:00→20:00)
[2018-09-01] MEDS ORDERED: Vancomycin(*) 1,250 MG in NS 0.9% 250 ML* 250 ML IVPB ONE (10:00)
[2018-09-01] MEDS ORDERED: D5W 1000 ML BAG* 850 ML with Sodium Bicarbonate 8.4% IV* 150 MEQ IV SCH ×4 (10:00→12:00)
[2018-09-01] MEDS ORDERED: Vancomycin per Pharmacy* NOTE FOLLOW UP SCH (10:00)
[2018-09-01] MEDS ORDERED: methylPREDNISolone 125 MG* 2 ML VIAL IM ONE (10:00)
[2018-09-01] MEDS: Albuterol 2.5 MG/3 ML NEB.SOL* (0.083%) INH PRN ×2 (10:07→20:33)
[2018-09-01] MEDS: TRIAMCINOLONE BOTH NARES SCH (10:09)
--- NOTE | 2018-09-01 10:13 | PN ---
Progress Note - Progress Note Date of Service: 09/01/18 Note: Progress Note -- Critical Care 24 hour events -noted events of yesterday; tachycardia, respiraory distress, apparent respiratory/cardiac arrest, ROSC -went to OR for ex-lap, found to have pus in abd, dilated colon/sigmoid with stool, s/p resection with closure of ends, left open abd with wound vac -remains intubated, on levophed/vaso, sedated on versed/fentanyl -making urine+; on NS infusion -tmax 100.4 this morning now -bedside rounds with surgeon this morning performed Tele: appears to be sinus tachycardia; noted PVCs and APCs Vitals: Vital Signs Temp 100.4 F 09/01/18 09:00 Pulse 120 09/01/18 08:01 Resp 21 09/01/18 09:00 BP 93/41 09/01/18 08:01 Pulse Ox 99 09/01/18 08:01 Intake & Output 08/31/18 09/01/18 09/01/18 18:59 06:59 18:59 Intake Total 0 3405 425 Output Total 0 1155 45 Balance 0 2250 380 Weight 67.4 kg Intake: IV Fluids 2354 425 NS 2354 425 IVPB 97 ABX - ZOSYN 97 Medicated IV 954 CC - Norepinephrine/ 954 Levophed Oral 0 0 Output: NG Tube Drainage Amount 350 Wound Vac 200 Urine 0 Wall 255 45 Liquid Stool 300 Estimated Blood Loss 50 Other: Estimated Void Medium Small Date of Last Bowel T Movement # Bowel Movements 0 1 Estimated Stool Amount Medium # Voids 1 O2/Vent: intubated; AC 14/500/+5/80% Infusions: levophed 8, vasopressin 0.06 u/min, NS 125cc/hr, versed 5, fentanyl 50 Current Medications: Albuterol (Ventolin 2.5 Mg/3 Ml Neb.Dang*) 2.5 mg INH Q6H PRN PRN Reason: WHEEZING Albuterol (Ventolin Hfa Inhaler*) 2 puff INH Q4H PRN PRN Reason: SHORTNESS OF BREATH Last Admin: 08/31/18 12:42 Dose: 2 puff Budesonide/Formoterol Fumarate (Symbicort 160/4.5 (Nf)) 2 puff INH BID EMIL; Protocol Last Admin: 09/01/18 08:02 Dose: Not Given Piperacillin Sod/Tazobactam (Sod 3.375 gm/ Sodium Chloride) 100 mls @ 25 mls/ hr IVPB Q8H [facility] Last Admin: 09/01/18 09:21 Dose: 25 mls/hr Norepinephrine Bitartrate (Levophed 16 Mcg/Ml Premix Bag*) 4,000 mcg in 250 mls @ 18.75 mls/hr IV .INITIAL RATE EMIL; Protocol Last Admin: 09/01/18 00:14 Dose: 18.75 mls/hr Vasopressin 100 units/ (Dextrose) 250 mls @ 9 mls/hr IVPB Q24H EMIL; Protocol Last Admin: 09/01/18 07:30 Dose: Not Given Fentanyl Citrate (Fentanyl Infusion Bag 50 Mcg/Ml 50 Ml) 2,500 mcg in 50 mls @ 1 mls/hr IV Q72H [facility]; Protocol Last Admin: 08/31/18 23:31 Dose: 1 mls/hr Midazolam HCl 100 mg/ Sodium (Chloride) 100 mls @ 5 mls/hr IV Q20H EMIL; Protocol Last Admin: 08/31/18 23:41 Dose: 5 mls/hr Lactated Ringer's (Lactated Ringers 1000 Ml Bag*) 1,000 mls @ 0 mls/hr IV WIDE OPEN EMIL Stop: 09/01/18 23:59 Morphine Sulfate (Morphine 4 Mg/Ml Vial (1 Ml)) 2 mg IV Q4H PRN PRN Reason: PAIN - MILD Last Admin: 08/30/18 11:59 Dose: 2 mg Ondansetron HCl (Zofran Inj*) 4 mg IV Q6H PRN PRN Reason: NAUSEA Pantoprazole Sodium (Protonix Iv*) 40 mg IV Q12H [facility] Last Admin: 09/01/18 08:44 Dose: 40 mg Pharmacy Consult (Zosyn Per Pharmacy*) 1 note FOLLOW UP .ZOSYN PER PHARMACY [facility] Polyethylene Glycol/Electrolytes (Miralax*) 17 gm PO 0800,2100 [facility] Last Admin: 09/01/18 07:55 Dose: Not Given Sodium Chloride (Sodium Chloride 0.65% Nasal [place]*) 1 spray BOTH NARES Q4H PRN PRN Reason: DISCOMFORT Last Admin: 08/31/18 08:47 Dose: 1 nasal.spr Triamcinolone Acetonide (Nasacort Aq Nasal [place]*) 1 spray BOTH NARES QAM EMIL Physical Exam: Constitutional: intubated, sedated, no resp distress, no diaphoresis Head: normocephalic, atraumatic Eyes: no pallor, no icterus ENT: moist mucous membranes Neck: soft, supple, no jvd CVS: tachy, regular, no murmur Resp: bilateral air entry, no rhales, noted diffuse bilateral expiratory rhonchi /wheeze Abdomen/GI: soft, open abd with wound vac+, mild abd mottling Ext/Msk: warm, pulses+, no edema Skin: intact, warm; mottling scattered in abd and lower ext but mild Neuro: intubated, sedated, pupils reactive, exam limited Labs: Laboratory Results - last 24 hr 08/31/18 08/31/18 08/31/18 05:41 05:41 15:51 WBC 3.4 L RBC 4.43 Hgb 12.6 Hct 38 MCV 86 MCH 29 MCHC 33 RDW 15 Plt Count 413 MPV 8.1 Neut % (Auto) 69.7 Lymph % (Auto) 20.3 [place] % (Auto) 9.8 Eos % (Auto) 0.1 Baso % (Auto) 0.1 Absolute Neuts (auto) 2.4 Absolute Lymphs (auto) 0.7 L Absolute Monos (auto) 0.3 Absolute Eos (auto) 0.0 Absolute Basos (auto) 0.0 Absolute Nucleated RBC 0.0 Nucleated RBC % 0.4 INR (Anticoag Therapy) Patient Temperature ABG pH ABG pH (Temp Correct) ABG pCO2 ABG pCO2 (Temp Corrct ABG pO2 ABG pO2 (Temp Correct ABG HCO3 ABG O2 Saturation ABG Base Excess Respiration Rate O2 Delivery Device Ventilator Type Vent Mode FiO2 Inspiratory Time PEEP Pressure Support Pressure Control EPAP IPAP BiPAP Sodium 137 Potassium 3.1 L Chloride 111 Carbon Dioxide 21 L Anion Gap 5 BUN 15 Creatinine 0.52 Est GFR ( Amer) 139.9 Est GFR (Non-Af Amer) 115.6 BUN/Creatinine Ratio 28.8 H Glucose 128 H Hemoglobin A1c Lactic Acid Calcium 7.4 L Phosphorus Magnesium 2.1 Total Bilirubin Direct Bilirubin Indirect Bilirubin AST ALT Alkaline Phosphatase Troponin I B-Natriuretic Peptide 361 H Total Protein Albumin Globulin Albumin/Globulin Ratio Triglycerides Cholesterol LDL Cholesterol HDL Cholesterol Blood Type Antibody Screen 08/31/18 08/31/18 08/31/18 15:51 15:51 15:51 WBC RBC Hgb Hct MCV MCH MCHC RDW Plt Count MPV Neut % (Auto) Lymph % (Auto) [place] % (Auto) Eos % (Auto) Baso % (Auto) Absolute Neuts (auto) Absolute Lymphs (auto) Absolute Monos (auto) Absolute Eos (auto) Absolute Basos (auto) Absolute Nucleated RBC Nucleated RBC % INR (Anticoag Therapy) 1.24 H Patient Temperature ABG pH ABG pH (Temp Correct) ABG pCO2 ABG pCO2 (Temp Corrct ABG pO2 ABG pO2 (Temp Correct ABG HCO3 ABG O2 Saturation ABG Base Excess Respiration Rate O2 Delivery Device Ventilator Type Vent Mode FiO2 Inspiratory Time PEEP Pressure Support Pressure Control EPAP IPAP BiPAP Sodium 139 Potassium 3.8 Chloride 111 Carbon Dioxide 19 L Anion Gap 9 BUN 16 Creatinine 0.57 Est GFR ( Amer) 125.8 Est GFR (Non-Af Amer) 104.0 BUN/Creatinine Ratio 28.1 H Glucose 151 H Hemoglobin A1c Lactic Acid 2.5 H* Calcium 8.1 L Phosphorus Magnesium Cancelled Total Bilirubin 0.40 Direct Bilirubin Indirect Bilirubin AST 36 ALT 18 Alkaline Phosphatase 78 Troponin I 0.55 H* B-Natriuretic Peptide Total Protein 5.8 L Albumin 2.8 L Globulin 3.0 Albumin/Globulin Ratio 0.9 L Triglycerides 154 Cholesterol 80 LDL Cholesterol 37 HDL Cholesterol 11.9 Blood Type Antibody Screen 08/31/18 08/31/18 08/31/18 15:51 15:51 20:13 WBC 8.9 RBC 4.03 Hgb 11.3 L Hct 35 MCV 86 MCH 28 MCHC 32 RDW 15 Plt Count 409 MPV 8.1 Neut % (Auto) 85.2 Lymph % (Auto) 4.2 [place] % (Auto) 10.4 Eos % (Auto) 0.1 Baso % (Auto) 0.1 Absolute Neuts (auto) 7.6 Absolute Lymphs (auto) 0.4 L Absolute Monos (auto) 0.9 H Absolute Eos (auto) 0.0 Absolute Basos (auto) 0.0 Absolute Nucleated RBC 0.0 Nucleated RBC % 0.4 INR (Anticoag Therapy) Patient Temperature ABG pH ABG pH (Temp Correct) ABG pCO2 ABG pCO2 (Temp Corrct ABG pO2 ABG pO2 (Temp Correct ABG HCO3 ABG O2 Saturation ABG Base Excess Respiration Rate O2 Delivery Device Ventilator Type Vent Mode FiO2 Inspiratory Time PEEP Pressure Support Pressure Control EPAP IPAP BiPAP Sodium Potassium Chloride Carbon Dioxide Anion Gap BUN Creatinine Est GFR ( Amer) Est GFR (Non-Af Amer) BUN/Creatinine Ratio Glucose Hemoglobin A1c 6.6 H Lactic Acid Calcium Phosphorus Magnesium Total Bilirubin Direct Bilirubin Indirect Bilirubin AST ALT Alkaline Phosphatase Troponin I B-Natriuretic Peptide 546 H Total Protein Albumin Globulin Albumin/Globulin Ratio Triglycerides Cholesterol LDL Cholesterol HDL Cholesterol Blood Type Antibody Screen 08/31/18 08/31/18 08/31/18 20:13 20:13 20:13 WBC RBC Hgb Hct MCV MCH MCHC RDW Plt Count MPV Neut % (Auto) Lymph % (Auto) [place] % (Auto) Eos % (Auto) Baso % (Auto) Absolute Neuts (auto) Absolute Lymphs (auto) Absolute Monos (auto) Absolute Eos (auto) Absolute Basos (auto) Absolute Nucleated RBC Nucleated RBC % INR (Anticoag Therapy) Patient Temperature ABG pH ABG pH (Temp Correct) ABG pCO2 ABG pCO2 (Temp Corrct ABG pO2 ABG pO2 (Temp Correct ABG HCO3 ABG O2 Saturation ABG Base Excess Respiration Rate O2 Delivery Device Ventilator Type Vent Mode FiO2 Inspiratory Time PEEP Pressure Support Pressure Control EPAP IPAP BiPAP Sodium 141 Potassium 4.3 Chloride 118 H Carbon Dioxide 17 L Anion Gap 6 BUN 20 Creatinine 0.66 Est GFR ( Amer) 106.2 Est GFR (Non-Af Amer) 87.8 BUN/Creatinine Ratio 30.3 H Glucose 118 H Hemoglobin A1c Lactic Acid 2.8 H* Calcium 7.0 L Phosphorus Magnesium Total Bilirubin 0.40 Direct Bilirubin Indirect Bilirubin AST 32 ALT 16 Alkaline Phosphatase 57 Troponin I 1.15 H* B-Natriuretic Peptide Total Protein 4.4 L Albumin 2.1 L Globulin 2.3 Albumin/Globulin Ratio 0.9 L Triglycerides Cholesterol LDL Cholesterol HDL Cholesterol Blood Type A Positive Antibody Screen Negative 08/31/18 09/01/18 09/01/18 20:30 00:45 06:00 WBC RBC Hgb Hct MCV MCH MCHC RDW Plt Count MPV Neut % (Auto) Lymph % (Auto) [place] % (Auto) Eos % (Auto) Baso % (Auto) Absolute Neuts (auto) Absolute Lymphs (auto) Absolute Monos (auto) Absolute Eos (auto) Absolute Basos (auto) Absolute Nucleated RBC Nucleated RBC % INR (Anticoag Therapy) Patient Temperature Not Reportable Not Reportable ABG pH 7.27 L 7.10 L* ABG pH (Temp Correct) Not Reportable Not Reportable ABG pCO2 36 45 ABG pCO2 (Temp Corrct Not Reportable Not Reportable ABG pO2 170 H 76 L ABG pO2 (Temp Correct Not Reportable Not Reportable ABG HCO3 17.5 L 12.9 L ABG O2 Saturation 100.0 H 95.2 ABG Base Excess -9.6 L -15.3 L Respiration Rate 12 12 O2 Delivery Device ventilator ventilator Ventilator Type 500 450 Vent Mode cmv cmv FiO2 90 65 Inspiratory Time 1.0 Not Reportable PEEP 5 5 Pressure Support Not Reportable Not Reportable Pressure Control Not Reportable Not Reportable EPAP Not Reportable Not Reportable IPAP Not Reportable Not Reportable BiPAP Not Reportable Not Reportable Sodium Potassium Chloride Carbon Dioxide Anion Gap BUN Creatinine Est GFR ( Amer) Est GFR (Non-Af Amer) BUN/Creatinine Ratio Glucose Hemoglobin A1c Lactic Acid 2.7 H* Calcium Phosphorus Magnesium Total Bilirubin Direct Bilirubin Indirect Bilirubin AST ALT Alkaline Phosphatase Troponin I B-Natriuretic Peptide Total Protein Albumin Globulin Albumin/Globulin Ratio Triglycerides Cholesterol LDL Cholesterol HDL Cholesterol Blood Type Antibody Screen 09/01/18 09/01/18 06:00 06:00 WBC 14.0 H RBC 4.74 Hgb 13.1 Hct 41 MCV 87 MCH 28 MCHC 32 RDW 16 H Plt Count 421 MPV 8.0 Neut % (Auto) Lymph % (Auto) [place] % (Auto) Eos % (Auto) Baso % (Auto) Absolute Neuts (auto) Absolute Lymphs (auto) Absolute Monos (auto) Absolute Eos (auto) Absolute Basos (auto) Absolute Nucleated RBC Nucleated RBC % INR (Anticoag Therapy) Patient Temperature ABG pH ABG pH (Temp Correct) ABG pCO2 ABG pCO2 (Temp Corrct ABG pO2 ABG pO2 (Temp Correct ABG HCO3 ABG O2 Saturation ABG Base Excess Respiration Rate O2 Delivery Device Ventilator Type Vent Mode FiO2 Inspiratory Time PEEP Pressure Support Pressure Control EPAP IPAP BiPAP Sodium 143 Potassium 4.2 Chloride 122 H Carbon Dioxide 12 L* Anion Gap 9 BUN 25 H Creatinine 0.75 Est GFR ( Amer) 91.7 Est GFR (Non-Af Amer) 75.7 BUN/Creatinine Ratio 33.3 H Glucose 93 Hemoglobin A1c Lactic Acid Calcium 6.2 L* Phosphorus 3.1 Magnesium 2.0 Total Bilirubin 0.40 Direct Bilirubin 0.10 Indirect Bilirubin 0.3 AST 55 H ALT 21 Alkaline Phosphatase 56 Troponin I 0.97 H* B-Natriuretic Peptide Total Protein 4.0 L Albumin 1.9 L Globulin 2.1 Albumin/Globulin Ratio 0.9 L Triglycerides Cholesterol LDL Cholesterol HDL Cholesterol Blood Type Antibody Screen Imaging: CT abd 08/29 - small focus of free intraperitoneal air, stool in colon, mucosal thickening of sigmoid colon CXR 08/31- left effusion, atelectasis+ KUB 08/31 contrast+, stool+ CXR 09/01 - reviewed report; I noted right sided increased haziness, lower lobe atelectasis noted on right; ETT above radha+, gastric tube+ Assessment: 73y F w/pmhx of MV prolapse, asthma, recent diverticulitus; presented to ER for abdominal pain and fever x2 days on 08/29. Found to have diverticulitus 15 days prior and was treated with Cipro/flagyl abx PO. Symptoms restarted 2 days prior to admission. Then progressed to nausea/vom. CT abd/ pelvis demonstrated small focus of free intraperitoneal air, stool in colon, mucosal thickening of sigmoid colon. She had fever 103, tachycardia, stable BP. She was admitted for abdominal sepsis, started on IVF infusion/bolus, IV abx zosyn. She was seen by surgery, was going to get a gastrograffin study today but afterward vomited, developed respiratory distress and tachycardia to 160s. -Transferred to ICU 08/31. Given adenosine for SVT, then Cardizem for possible Atrial Fib with RVR, remains with tachypnea. -Cardiopulmonary Arrest 08/31, ROSC <5min; OR for ex-lap, pus+, sigmoid/ descending resection, open abd+; sedated/intubated/pressors+ -Acute Hypoxic Respiratory Failure; intubated 08/31 -Cardiac Arrest 2/2 to suspected respiratory failure? vs septic shock? 08/31 -Suspected Aspiration pneumonitis on right, possible ARDS -Acute perforated diverticulitus with peritonitis -s/p Ex-lap, sigmoid/descending colon resection, abdominal washout, open abd with vac+ 08/31 -Septic Shock -YOKO -Metabolic Acidosis Plan: Neuro- -sedated; maintain versed and fentanyl infusion -no plan on sedation weaning today, maintain sedation while open abdomen -can plan for sedation lowering tomorrow slowly to assess neuro status -post ROSC 08/31 she was moving and reaching for ETT so I suspect there should be some intact neurological status -Delirium prec; avoid BDZ CVS- -Septic Shock from perforated diverticulitus/peritonitis -on levophed and vasopressin -Maintain MAP>65 -low urine output, hg appears concentrated; LR bolus 1 Liter over 2 hours -start bicarb infusionn -peripherally warm, cap refill appears intact -Sinus tachycardia evident now; no clear atrial dysarrthmia noted; will give more volume, K okay, Mg okay -will replete bicarb; noted LA improved already -no role for antiarrythmics/cardizem, this is probably a stress response to sepsis -IV abx Resp- -Intubated; on AC 90% -CXR with right sided haziness; I suspect a degree of pneumonitis may have occurred from aspiration of bile -ABG now 7.25/22/183, bicarb 13 on above settings; maintain peep 5, dec fio2 60% -ABG at 6pm -CXR tomorrow -not a clear ARDS picture but likely to have some chemical pneumonitis -exp rhonchi/wheeze; will add solumedrol for bronchospasm and for stress steroids in shock -Bronchodilators q4h PRN wheeze -CT chest 08/31 - no clear infiltrateive process noted, small effusions -cont IV abx for aspiration coverage -Wean Fio2 to keep sat>92% -Bronchodilators PRN, Aspiration prec ID- -tmax 100.4 now, slowly rising; WBC increased from 9-14 -CT with thickened sigmoid, free air 08/29; suspected diverticulitus with perforation -CT 08/31 with residual free abd air -CXR 09/01 - right sided haziness+ -s/p ex-lap, peritonitis/pus, sigmoid/desc resection; open abd 08/31 -cultures in process; gram+ and gram- organisms -Cont IV zosyn started 08/29 (day#4); vancomycin x1 dose with pharmacy followup; abdominal and aspiration coverage GI- -NPO -OGT to intermitten suction; appears to be all bilious output -no clear drop in h/h, not coffee ground or bloody -Open abdomen with wound vac+; wound checks -maintain sedation -plan for possible OR otmorrow for second look and closure if stable/improving -IV abx -IVF -GI prophylaxis ppi IV -prn antiemetics Renal- -Cr okay; but oliguric; suspect hypovolemia -LR 1000cc bolus now -metabolic acidosis; LA resolved though; sepsis? -start bicarb infusion d5w 150meq bicarb at 100cc/hr -d/c NS infusion -ABG with metabolic acidosis+ -K okay, Mg okay -follow urine output -strict I/O, replete to keep K>4, Mg>2 -wall+ Heme- -hg stable 13; concentrated? -plt stable -DVT proph - SCD; start heparin sq q8h Endo- Maintain BG<200, insulin protocol as needed Musculsk- pressure ulcer prophylaxis. Bedrest. Wounds- open abd with vac; wound care Nutrition- NPO DVT prophylaxis: SCD, heparin sq GI prophylaxis: ppi Central Line: Right fem 08/31 Arterial Line: right fem 08/31 Wall Cathetor: yes Disposition: Patient requires Critical Care/ICU for acute hypoxic respiratory failure/intubated, septic shock on pressors, post cardiac arrest, ex-lap with open abdomen Patient Clinical Status: critical Code Status: full code Total Critical Care time is 50 minutes, excluding procedures/teaching Eduar Echavarria MD [employer] (Electronically Signed)
[2018-09-01] MEDS ORDERED: Calcium Gluconate INJ* 2 GM in NS 0.9% 100 ML* 100 ML IV ONE ×2 (10:30→20:00)
[2018-09-01] MEDS: Heparin VIAL(*) 5000 UNITS/ML VIAL (FIVE THOUSAND) SUBCUT SCH ×3 (11:24→21:57)
[2018-09-01] MEDS: Pantoprazole IV* 40 MG IV SCH (11:24)
[2018-09-01] MEDS: Sodium Bicarbonate 8.4% IV* 150 MEQ in D5W 1000 ML BAG* 850 ML IV SCH (13:18)
[2018-09-01] MEDS: Chlorhexidine MOUTHWASH 0.12%* 15 ML UDC TOPICAL SCH ×3 (14:30→23:31)
--- NOTE | 2018-09-01 16:14 | PN ---
Progress Note - Progress Note Date of Service: 09/01/18 Note: Central Line Procedure Note Indication: venous access Diagnosis: septic shock, peritonitis, YOKO, Acute hypoxic respiratory failure Performed by: Eduar Echavarria MD Consent: Informed ; placed in bedside chart Risks of procedure were explained if possible, all risks of pain/discomfort, bleeding, infection, PTX, Hemotx, need for chest tube, air/wire embolism, vessel injury, , and failed procedure disclosed and understanding verbalized [place] Protocol: Time-out was performed and the correct patient and site were verified - Prior labs/history was reviewed prior to procedure - Full sterile precautions with chlorhexidine/full drapes/gowns/gloves utilized - Left Internal Jugular Vein visualized with ultrasound - Vessel accessed under ultrasound guidance with return of nonpulsatile blood. A guidewire was passed into vessel and confirmed in vessel with ultrasound. 1 attempt was made to access vessel. Vessel was dilated and cathetor was passed over wire into vessel. All ports demonstrated good blood return and flushed. Catheter was sutured to site and dressing applied. Adequate hemostasis was achieved EBL <5 cc No immediate complications noted, patient tolerated procedure well. Post Procedure CXR: Pending Eduar Echavarria MD Baler (Electronically Signed)
[2018-09-01] MEDS ORDERED: Albumin Human 5%* 12.5 GM/250 ML BTL IV ONE ×2 (16:30)
[2018-09-01] MEDS ORDERED: Amiodarone 150 MG IVPREMIX* 150 MG/100 ML BAG IV ONE ×2 (16:40→19:27)
[2018-09-01 16:56] LABS: Hematocrit 36 % (35-47); Hemoglobin 11.5 g/dL (12.0-16.0); Mean Corpuscular HGB Conc 32 g/dL (31-36); Mean Corpuscular Hemoglobin 28 pg (27-31); Mean Corpuscular Volume 86 fL (80-97); Mean Platelet Volume 7.9 fL (7.4-10.4); Platelet Count 361 10^3/uL (150-450); Red Blood Count 4.19 10^6 /uL (3.70-4.87); Red Cell Distribution Width 15 % (10.5-15); White Blood Count 12.1 10^3/uL (3.5-10.8)
[2018-09-01 17:11] LABS: BUN/Creatinine Ratio 29.3 (8-20); Calcium 7.1 mg/dL (8.6-10.3); EGFR African American 72.4 (>60); EGFR Non-African American 59.8 (>60); Magnesium 1.9 mg/dL (1.9-2.7); Potassium 3.9 mmol/L (3.5-5.0)
[2018-09-01] MEDS: Vancomycin(*) 750 MG in NS 0.9% 250 ML* 250 ML IVPB SCH (17:12)
[2018-09-01] MEDS: Midazolam IV DRIP 100 MG in NS 0.9% IV SCH (17:23)
[2018-09-01] MEDS ORDERED: Magnesium Sulfate 2 GM IV (Premix) IVPB ONE (17:45)
[2018-09-01] MEDS ORDERED: Amiodarone 360 MG IVPREMIX* 360 MG/200 ML BAG IV ONE (19:30)
--- NOTE | 2018-09-01 19:37 | PN ---
Subjective Date of Service: 09/01/18 Interval History: Pt developed narrow complex tachy HR 150 despide amiodarone bolus at 150 mg total. SBP in 90's on Levophed gtt at 6-7 mcg. EKG shows a. flutter with aberrancy or SVT D/w / [place]: will tx with another Amio 150 mg, start gtt replace calcium and give a 1L IVF bolus Replace Levophed with phenylephrine gtt. Family History: Unchanged from Admission Social History: Unchanged from Admission Past Medical History: Unchanged from Admission Objective Active Medications: Albuterol (Ventolin 2.5 Mg/3 Ml Neb.Dang*) 2.5 mg INH Q6H PRN PRN Reason: WHEEZING Last Admin: 09/01/18 10:07 Dose: 2.5 mg Budesonide/Formoterol Fumarate (Symbicort 160/4.5 (Nf)) 2 puff INH BID [facility]; Protocol Last Admin: 09/01/18 19:32 Dose: Not Given Chlorhexidine Gluconate (Peridex Mouth Wash 0.12%*) 15 ml TOPICAL Q4H [facility] Last Admin: 09/01/18 14:30 Dose: 15 ml Heparin Sodium (Porcine) (Heparin Vial(*)) 5,000 units SUBCUT Q8HR [facility] Last Admin: 09/01/18 14:30 Dose: 5,000 units Piperacillin Sod/Tazobactam (Sod 3.375 gm/ Sodium Chloride) 100 mls @ 25 mls/ hr IVPB Q8H [facility] Last Admin: 09/01/18 17:06 Dose: 25 mls/hr Vasopressin 100 units/ (Dextrose) 250 mls @ 9 mls/hr IVPB Q24H [facility]; Protocol Last Admin: 09/01/18 07:30 Dose: Not Given Fentanyl Citrate (Fentanyl Infusion Bag 50 Mcg/Ml 50 Ml) 2,500 mcg in 50 mls @ 1 mls/hr IV Q72H [facility]; Protocol Last Admin: 08/31/18 23:31 Dose: 1 mls/hr Midazolam HCl 100 mg/ Sodium (Chloride) 100 mls @ 5 mls/hr IV Q20H [facility]; Protocol Last Admin: 09/01/18 17:23 Dose: 5 mls/hr Lactated Ringer's (Lactated Ringers 1000 Ml Bag*) 1,000 mls @ 0 mls/hr IV WIDE OPEN [facility] Stop: 09/01/18 23:59 Last Admin: 09/01/18 09:30 Dose: 500 mls/hr Sodium Bicarbonate 150 meq/ (Dextrose) 1,000 mls @ 100 mls/hr IV Q10H [facility] Last Admin: 09/01/18 13:18 Dose: 100 mls/hr Vancomycin HCl 750 mg/ Sodium (Chloride) 250 mls @ 166.667 mls/hr IVPB Q8H [facility] Last Admin: 09/01/18 17:12 Dose: 166.667 mls/hr Lactated Ringer's (Lactated Ringers 1000 Ml Bag*) 1,000 mls @ 0 mls/hr IV WIDE OPEN [facility] Stop: 09/01/18 23:59 Last Admin: 09/01/18 16:15 Dose: 500 mls/hr Amiodarone HCl (Nexterone 360 Mg/200 Ml Ivpremix*) 360 mg in 200 mls @ 33.333 mls/hr IV ONCE ONE Stop: 09/02/18 01:29 Last Admin: 09/01/18 19:34 Dose: 33.333 mls/hr Amiodarone HCl (Nexterone 360 Mg/200 Ml Ivpremix*) 360 mg in 200 mls @ 16.667 mls/hr IV .SEE PROTOCOL [facility] Sodium Chloride (Ns 0.9% 1000 Ml) 1,000 mls @ 1,000 mls/hr IV .PER RATE ONE Stop: 09/01/18 20:25 Amiodarone HCl (Nexterone Drip*) 150 mg in 100 mls @ 600 mls/hr IV ONCE ONE Stop: 09/01/18 19:36 Phenylephrine HCl 50 mg/ (Sodium Chloride) 250 mls @ 30 mls/hr IV .(Initial Rate) [facility]; Protocol Calcium Gluconate 2 gm/ Sodium (Chloride) 120 mls @ 60 mls/hr IV ONCE ONE Stop: 09/01/18 21:33 Methylprednisolone Sodium Succinate (Solu-Medrol 40 Mg) 40 mg IV Q12H [facility] Ondansetron HCl (Zofran Inj*) 4 mg IV Q6H PRN PRN Reason: NAUSEA Pantoprazole Sodium (Protonix Iv*) 40 mg IV Q24H [facility] Last Admin: 09/01/18 11:24 Dose: Not Given Pharmacy Consult (Zosyn Per Pharmacy*) 1 note FOLLOW UP .ZOSYN PER PHARMACY [facility] Pharmacy Consult (Vancomycin Per Pharmacy*) 1 note FOLLOW UP .VANC PER PHARMACY [facility]; Protocol Pharmacy Profile Note (Vancomycin Trough Check) 1 note FOLLOW UP ONCE ONE Stop: 09/02/18 09:31 Polyethylene Glycol/Electrolytes (Miralax*) 17 gm PO 0800,2100 [facility] Last Admin: 09/01/18 07:55 Dose: Not Given Sodium Chloride (Sodium Chloride 0.65% Nasal [place]*) 1 spray BOTH NARES Q4H PRN PRN Reason: DISCOMFORT Last Admin: 08/31/18 08:47 Dose: 1 nasal.spr Triamcinolone Acetonide (Nasacort Aq Nasal [place]*) 1 spray BOTH NARES QAM [facility] Last Admin: 09/01/18 10:09 Dose: Not Given Vital Signs - 8 hr 09/01/18 09/01/18 09/01/18 12:00 13:00 13:01 Temperature 99.9 F 100.2 F Pulse Rate 119 121 Respiratory 22 25 Rate Blood Pressure (mmHg) O2 Sat by Pulse 96 93 Oximetry 09/01/18 09/01/18 09/01/18 13:24 14:00 14:01 Temperature 100.2 F 100.4 F Pulse Rate 124 121 Respiratory 23 Rate Blood Pressure (mmHg) O2 Sat by Pulse 73 92 Oximetry 09/01/18 09/01/18 09/01/18 15:00 15:01 16:00 Temperature 100.9 F 101.1 F Pulse Rate 124 127 Respiratory 22 20 Rate Blood Pressure (mmHg) O2 Sat by Pulse 93 93 Oximetry 09/01/18 09/01/18 09/01/18 17:00 17:23 17:31 Temperature 101.3 F 100.8 F Pulse Rate 131 Respiratory 22 25 Rate Blood Pressure 98/63 (mmHg) O2 Sat by Pulse 94 Oximetry 09/01/18 18:00 Temperature 100.4 F Pulse Rate 139 Respiratory 25 Rate Blood Pressure 121/57 (mmHg) O2 Sat by Pulse 94 Oximetry Oxygen Devices in Use Now: Mechanical Ventilator Result Diagrams: 09/01/18 16:44 09/01/18 16:44 Additional Lab and Data: Laboratory Results - last 24 hr 08/31/18 08/31/18 08/31/18 01:09 05:41 05:41 WBC 11.2 H RBC 3.61 L Hgb 10.4 L Hct 31 L MCV 85 MCH 29 MCHC 34 RDW 15 Plt Count 289 MPV 7.7 Neut % (Auto) 83.7 Lymph % (Auto) 4.1 [place] % (Auto) 12.1 Eos % (Auto) 0.0 Baso % (Auto) 0.1 Absolute Neuts (auto) 9.4 H Absolute Lymphs (auto) 0.5 L Absolute Monos (auto) 1.4 H Absolute Eos (auto) 0.0 Absolute Basos (auto) 0.0 Absolute Nucleated RBC 0.0 Nucleated RBC % 0.0 INR (Anticoag Therapy) Sodium 137 Potassium 3.1 L Chloride 111 Carbon Dioxide 21 L Anion Gap 5 BUN 15 Creatinine 0.52 Est GFR ( Amer) 139.9 Est GFR (Non-Af Amer) 115.6 BUN/Creatinine Ratio 28.8 H Glucose 128 H Lactic Acid Calcium 7.4 L Magnesium 2.1 Total Bilirubin AST ALT Alkaline Phosphatase B-Natriuretic Peptide Total Protein Albumin Globulin Albumin/Globulin Ratio Urine Color Sylvia Urine Appearance Turbid Urine pH 5.0 Ur Specific Levels 1.031 H Urine Protein 2+(100 mg/dl) A Urine Ketones Negative Urine Blood Negative Urine Nitrate Negative Urine Bilirubin Negative Urine Urobilinogen Negative Ur Leukocyte Esterase Negative Urine WBC (Auto) Trace(0-5/hpf) Urine RBC (Auto) Trace(0-2/hpf) Urine Bacteria 1+ A Urine Yeast Present A Urine Glucose Negative 08/31/18 08/31/18 08/31/18 05:41 15:51 15:51 WBC 3.4 L RBC 4.43 Hgb 12.6 Hct 38 MCV 86 MCH 29 MCHC 33 RDW 15 Plt Count 413 MPV 8.1 Neut % (Auto) 69.7 Lymph % (Auto) 20.3 [place] % (Auto) 9.8 Eos % (Auto) 0.1 Baso % (Auto) 0.1 Absolute Neuts (auto) 2.4 Absolute Lymphs (auto) 0.7 L Absolute Monos (auto) 0.3 Absolute Eos (auto) 0.0 Absolute Basos (auto) 0.0 Absolute Nucleated RBC 0.0 Nucleated RBC % 0.4 INR (Anticoag Therapy) Sodium 139 Potassium 3.8 Chloride 111 Carbon Dioxide 19 L Anion Gap 9 BUN 16 Creatinine 0.57 Est GFR ( Amer) 125.8 Est GFR (Non-Af Amer) 104.0 BUN/Creatinine Ratio 28.1 H Glucose 151 H Lactic Acid Calcium 8.1 L Magnesium Total Bilirubin 0.40 AST 36 ALT 18 Alkaline Phosphatase 78 B-Natriuretic Peptide 361 H Total Protein 5.8 L Albumin 2.8 L Globulin 3.0 Albumin/Globulin Ratio 0.9 L Urine Color Urine Appearance Urine pH Ur Specific Levels Urine Protein Urine Ketones Urine Blood Urine Nitrate Urine Bilirubin Urine Urobilinogen Ur Leukocyte Esterase Urine WBC (Auto) Urine RBC (Auto) Urine Bacteria Urine Yeast Urine Glucose 08/31/18 08/31/18 08/31/18 15:51 15:51 15:51 WBC RBC Hgb Hct MCV MCH MCHC RDW Plt Count MPV Neut % (Auto) Lymph % (Auto) [place] % (Auto) Eos % (Auto) Baso % (Auto) Absolute Neuts (auto) Absolute Lymphs (auto) Absolute Monos (auto) Absolute Eos (auto) Absolute Basos (auto) Absolute Nucleated RBC Nucleated RBC % INR (Anticoag Therapy) 1.24 H Sodium Potassium Chloride Carbon Dioxide Anion Gap BUN Creatinine Est GFR ( Amer) Est GFR (Non-Af Amer) BUN/Creatinine Ratio Glucose Lactic Acid 2.5 H* Calcium Magnesium Total Bilirubin AST ALT Alkaline Phosphatase B-Natriuretic Peptide 546 H Total Protein Albumin Globulin Albumin/Globulin Ratio Urine Color Urine Appearance Urine pH Ur Specific Levels Urine Protein Urine Ketones Urine Blood Urine Nitrate Urine Bilirubin Urine Urobilinogen Ur Leukocyte Esterase Urine WBC (Auto) Urine RBC (Auto) Urine Bacteria Urine Yeast Urine Glucose Microbiology and Other Data: Microbiology 08/29/18 10:10 Blood Venous Aerobic Blood Culture - Preliminary No Growth Day 2 08/29/18 10:10 Blood Venous Anaerobic Blood Culture - Preliminary No Growth Day 2 08/29/18 10:10 Blood Venous Aerobic Blood Culture - Preliminary No Growth Day 2 08/29/18 10:10 Blood Venous Anaerobic Blood Culture - Preliminary No Growth Day 2 Assess/Plan/Problems-Billing Assessment: Mrs Spencer is a 73yo F with PMH of asthma, mitral valve prolapse, diverticulitis, who presents to ED with c/o abdominal pain; found to have another episode of diverticulitis failed outpatient therapy.Course complicated by SVT w/ suspected underlying Afib w/ RVR, now on cardizem gtt. in ICU Status and Disposition: Inpatient. medicine with surgery and critical care consultation
[2018-09-01] MEDS: Phenylephrine 10 MG/ML VIAL* 50 MG in NS 0.9% 250 ML* 245 ML IV SCH (20:15)
[2018-09-01 21:24] LABS: BUN/Creatinine Ratio 32.5 (8-20); Calcium 7.1 mg/dL (8.6-10.3); EGFR African American 85.1 (>60); EGFR Non-African American 70.3 (>60); Magnesium 2.5 mg/dL (1.9-2.7); Potassium 3.6 mmol/L (3.5-5.0)
[2018-09-01] MEDS ORDERED: Calcium Gluconate INJ* 4 GM in NS 0.9% 250 ML* 250 ML IVPB ONE (21:54)
[2018-09-01] MEDS: methylPREDNISolone SOD 40 MG* 1 ML VIAL IV SCH (21:57)
--- NOTE | 2018-09-01 22:42 | PN ---
Progress Note - Progress Note Date of Service: 09/01/18 Note: Critical Care Followup Called for tachycardia to 160s, dropped BPs earlier. Ordered to give amio 150mg bolus Nurse called hospitalist education nurse, some improvement with amio 150mg iv x2 doses, started on IV infusion amio Changed levophed to viri infusion. I have come in to evaluate her. Noted that she dropped oxygen saturations also; fio2 was increased to 100% ABGs reviewed on 60% at 830pm but o2 sats dropped afterward; ABG reviewed at 950pm showing PO2 157 on 100% fio2 with peep of 7 now CXR demonstrates ett above radha it appears, bilateral haziness, possibly congestion, possible RLL Clinically bilateral breath sounds noted, no further wheezing/rhonchi noted, no rhales No sputum from ETT being suctioned either. Currently Tele demonstrates what appears to be tachycardia, showing some irregularity with PVCs also. THis is most likely not to be Afib with RVR. She was prior in Sinus tachycardia during the day. BP stable; on viri and vasopressin. HR 130s and with better BPs While writing this note, rhythm has converted to NSR at 90s now Will continue IV amio infusion 1mg/min. SHe is making more urine now since additional LR bolus given since tachycardia episode. We gave 1L additional LR and 500cc Albumin in later afternoon also. Will maintain Bicarb infusion 150meq in d5w at 100cc/hr Overall anasarca developing but definitely had intravascular volume depletion given good response to IVF bolus. WIll likely need some hypotonic fluids by AM if urine outputs are maintaining/ continued. cont IV abx Lactic acid noted to be declining from 4s to 3s. Mottling in LE and abdomen has improved/almost resolved now compared to day time. Labs, imaging, plan for hemodynamic support and respiratory support was discussed with Nursing and Dr May (overnight hospitalist). Close observation. Based on morning labs and clinical status, decision for return to OR for second look, colostomy? and closure of abdominal wall will be made. Total Critical Care time 45 min, not including procedures. Total CC time for the day 09/01 is 95 min Eduar Echavarria MD Internal Medicine Nurse (electronically signed)
[2018-09-01] MEDS ORDERED: KCL 20 MEQ/100 ML IVPREMIX* 20 MEQ/100 ML BAG IV ONE (22:44)
[2018-09-01] MEDS ORDERED: Midazolam IV for DRIP* 100 MG in NS 0.9% 100 ML* 80 ML IV SCH (22:46)
[2018-09-01] MEDS ORDERED: Acetaminophen IV 1GM/100ML * 100 ML IVPB PRN (22:49)
[2018-09-02] MEDS: ZOSYN 3.375 GM Q8H per EXTENDED INFUSION IVPB SCH ×6 (00:08→17:26)
[2018-09-02] MEDS: Vancomycin(*) 750 MG in NS 0.9% 250 ML* 250 ML IVPB SCH ×2 (01:00→13:27)
[2018-09-02] MEDS ORDERED: Amiodarone 360 MG IVPREMIX* 360 MG/200 ML BAG IV SCH (01:30)
[2018-09-02] MEDS: Sodium Bicarbonate 8.4% IV* 150 MEQ in D5W 1000 ML BAG* 850 ML IV SCH ×2 (01:38→09:57)
[2018-09-02] MEDS: Chlorhexidine MOUTHWASH 0.12%* 15 ML UDC TOPICAL SCH ×5 (02:55→19:53)
[2018-09-02] MEDS: Phenylephrine 10 MG/ML VIAL* 50 MG in NS 0.9% 250 ML* 245 ML IV SCH ×4 (04:10→19:52)
[2018-09-02 05:28] LABS: Hematocrit 29 % (35-47); Hemoglobin 9.3 g/dL (12.0-16.0); Mean Corpuscular HGB Conc 32 g/dL (31-36); Mean Corpuscular Hemoglobin 28 pg (27-31); Mean Corpuscular Volume 85 fL (80-97); Mean Platelet Volume 7.8 fL (7.4-10.4); Platelet Count 272 10^3/uL (150-450); Red Blood Count 3.37 10^6 /uL (3.70-4.87); Red Cell Distribution Width 15 % (10.5-15); White Blood Count 13.4 10^3/uL (3.5-10.8)
[2018-09-02 05:34] LABS: INR 1.36 (0.82-1.09)
[2018-09-02] MEDS: Heparin VIAL(*) 5000 UNITS/ML VIAL (FIVE THOUSAND) SUBCUT SCH ×3 (05:41→22:23)
[2018-09-02 05:45] LABS: Albumin 1.9 g/dL (3.2-5.2); BUN/Creatinine Ratio 31.9 (8-20); Calcium 8.1 mg/dL (8.6-10.3); EGFR African American 96.1 (>60); EGFR Non-African American 79.4 (>60); Globulin 1.9 g/dL (2-4); Indirect Bilirubin 0.2 mg/dL (0.3-1.0); Magnesium 2.2 mg/dL (1.9-2.7); Phosphorus 2.4 mg/dL (2.5-5.0); Potassium 3.6 mmol/L (3.5-5.0); Total Bilirubin 0.5 mg/dL (0.2-1.0); Total Protein 3.8 g/dL (6.4-8.9)
[2018-09-02] MEDS: fentaNYL INFUSION 50 MCG/ML* 2,500 MCG/50 ML BAG IV SCH (07:30)
--- NOTE | 2018-09-02 07:47 | PN ---
Progress Note - Progress Note Date of Service: 09/02/18 Note: Surgery Progress Note ID: Patient is a 73 yo F who presented to ED with recurrent diverticulitis after failed outpatient management. On CT she had small foci of intraperitoneal air, large stool burden with mucosal thickening, diverticuli. She was managed conservatively and had improved symptoms, remained afebrile after ED. After receiving a barium enema on 08/31, acutely decompensated with tachyarrhythmia, respiratory failure and then had a brief code event with ROSC after 4 minutes. She underwent exploratory laparotomy and sigmoid colectomy on 08/31/18 with findings concerning for perforated stercoral colitis. S: Overnight events noted. Patient went to NSR around 10pm. Currently only on minimal vasopressin gtt for vasopressor support. UOP has improved to 40-60cc/ hr. She remains on high vent settings. O: Vital Signs - 24 hr 09/01/18 09/01/18 09/01/18 07:46 08:00 08:01 Temperature 100.0 F 100.2 F 100.2 F Pulse Rate 118 119 120 Respiratory 17 Rate Blood Pressure 93/41 (mmHg) O2 Sat by Pulse 98 97 99 Oximetry 09/01/18 09/01/18 09/01/18 09:00 10:00 10:07 Temperature 100.4 F 100.4 F Pulse Rate 125 123 Respiratory 21 22 22 Rate Blood Pressure (mmHg) O2 Sat by Pulse 97 97 Oximetry 09/01/18 09/01/18 09/01/18 11:00 12:00 13:00 Temperature 99.9 F 99.9 F Pulse Rate 117 119 Respiratory 22 22 25 Rate Blood Pressure (mmHg) O2 Sat by Pulse 97 96 Oximetry 09/01/18 09/01/18 09/01/18 13:01 13:24 14:00 Temperature 100.2 F 100.2 F Pulse Rate 121 124 Respiratory 23 Rate Blood Pressure (mmHg) O2 Sat by Pulse 93 73 Oximetry 09/01/18 09/01/18 09/01/18 14:01 15:00 15:01 Temperature 100.4 F 100.9 F Pulse Rate 121 124 Respiratory 22 Rate Blood Pressure (mmHg) O2 Sat by Pulse 92 93 Oximetry 09/01/18 09/01/18 09/01/18 16:00 17:00 17:23 Temperature 101.1 F 101.3 F Pulse Rate 127 131 Respiratory 20 22 25 Rate Blood Pressure (mmHg) O2 Sat by Pulse 93 94 Oximetry 09/01/18 09/01/18 09/01/18 17:31 18:00 18:38 Temperature 100.8 F 100.4 F 99.9 F Pulse Rate 139 Respiratory 25 Rate Blood Pressure 98/63 121/57 87/60 (mmHg) O2 Sat by Pulse 94 Oximetry 09/01/18 09/01/18 09/01/18 19:00 20:00 20:01 Temperature 99.9 F 100.0 F 100.0 F Pulse Rate Respiratory 26 22 Rate Blood Pressure 101/48 (mmHg) O2 Sat by Pulse Oximetry 09/01/18 09/01/18 09/01/18 20:55 21:00 21:01 Temperature 99.5 F Pulse Rate 132 134 Respiratory 20 20 Rate Blood Pressure 95/55 (mmHg) O2 Sat by Pulse 93 96 Oximetry 09/01/18 09/01/18 09/01/18 22:00 22:01 22:31 Temperature 99.5 F 99.5 F Pulse Rate 133 93 Respiratory 20 Rate Blood Pressure 102/66 118/89 (mmHg) O2 Sat by Pulse 98 98 Oximetry 09/01/18 09/01/18 09/02/18 23:00 23:01 00:00 Temperature 99.3 F 99.3 F 99.1 F Pulse Rate 92 97 Respiratory 18 18 Rate Blood Pressure 107/46 (mmHg) O2 Sat by Pulse 96 96 Oximetry 09/02/18 09/02/18 09/02/18 00:01 00:11 01:00 Temperature 99.1 F 99.1 F 98.8 F Pulse Rate 96 96 Respiratory 20 Rate Blood Pressure 107/45 94/57 (mmHg) O2 Sat by Pulse 96 96 Oximetry 09/02/18 09/02/18 09/02/18 02:00 03:00 04:00 Temperature 98.4 F 98.2 F 98.2 F Pulse Rate 95 93 90 Respiratory 18 19 19 Rate Blood Pressure 100/57 (mmHg) O2 Sat by Pulse 95 94 93 Oximetry 09/02/18 09/02/18 09/02/18 04:01 05:00 06:00 Temperature 98.2 F 98.1 F 98.1 F Pulse Rate 91 91 89 Respiratory 19 19 Rate Blood Pressure 103/56 103/53 97/56 (mmHg) O2 Sat by Pulse 95 96 99 Oximetry 09/02/18 09/02/18 09/02/18 07:00 07:01 07:30 Temperature 98.1 F 98.1 F Pulse Rate 88 87 Respiratory 18 19 Rate Blood Pressure 96/52 (mmHg) O2 Sat by Pulse 97 97 Oximetry Laboratory Results - last 24 hr 09/01/18 09/01/18 09/01/18 06:00 09:35 16:44 WBC RBC Hgb Hct MCV MCH MCHC RDW Plt Count MPV INR (Anticoag Therapy) Patient Temperature ABG pH 7.25 L ABG pH (Temp Correct) ABG pCO2 22 L ABG pCO2 (Temp Corrct ABG pO2 183 H ABG pO2 (Temp Correct ABG HCO3 12.8 L ABG O2 Saturation 99.5 H ABG Base Excess -15.6 L VBG pH 7.31 L VBG pCO2 30 L VBG pO2 41.0 VBG HCO3 16.6 L VBG O2 Saturation 74.0 VBG Base Excess -9.8 L Respiration Rate O2 Delivery Device Ventilator Type Vent Mode FiO2 Inspiratory Time PEEP Pressure Support Pressure Control EPAP IPAP BiPAP Sodium 143 Potassium 4.2 Chloride 122 H Carbon Dioxide 12 L* Anion Gap 9 BUN 25 H Creatinine 0.75 Est GFR ( Amer) 91.7 Est GFR (Non-Af Amer) 75.7 BUN/Creatinine Ratio 33.3 H Glucose 93 Lactic Acid Calcium 6.2 L* Phosphorus 3.1 Magnesium 2.0 Total Bilirubin 0.40 Direct Bilirubin 0.10 Indirect Bilirubin 0.3 AST 55 H ALT 21 Alkaline Phosphatase 56 Troponin I 0.97 H* Total Protein 4.0 L Albumin 1.9 L Globulin 2.1 Albumin/Globulin Ratio 0.9 L 09/01/18 09/01/18 09/01/18 16:44 16:44 16:51 WBC 12.1 H RBC 4.19 Hgb 11.5 L Hct 36 MCV 86 MCH 28 MCHC 32 RDW 15 Plt Count 361 MPV 7.9 INR (Anticoag Therapy) Patient Temperature ABG pH ABG pH (Temp Correct) ABG pCO2 ABG pCO2 (Temp Corrct ABG pO2 ABG pO2 (Temp Correct ABG HCO3 ABG O2 Saturation ABG Base Excess VBG pH VBG pCO2 VBG pO2 VBG HCO3 VBG O2 Saturation VBG Base Excess Respiration Rate O2 Delivery Device Ventilator Type Vent Mode FiO2 Inspiratory Time PEEP Pressure Support Pressure Control EPAP IPAP BiPAP Sodium 145 Potassium 3.9 Chloride 118 H Carbon Dioxide 16 L Anion Gap 11 BUN 27 H Creatinine 0.92 Est GFR ( Amer) 72.4 Est GFR (Non-Af Amer) 59.8 BUN/Creatinine Ratio 29.3 H Glucose 129 H Lactic Acid 4.4 H* Calcium 7.1 L Phosphorus Magnesium 1.9 Total Bilirubin Direct Bilirubin Indirect Bilirubin AST ALT Alkaline Phosphatase Troponin I Total Protein Albumin Globulin Albumin/Globulin Ratio 09/01/18 09/01/18 09/01/18 18:29 20:25 21:00 WBC RBC Hgb Hct MCV MCH MCHC RDW Plt Count MPV INR (Anticoag Therapy) Patient Temperature Not Reportable Not Reportable ABG pH 7.35 7.34 L ABG pH (Temp Correct) Not Reportable ABG pCO2 25 L 27 L ABG pCO2 (Temp Corrct Not Reportable ABG pO2 80 154 H ABG pO2 (Temp Correct Not Reportable ABG HCO3 17.1 L 17.4 L ABG O2 Saturation 98.7 H 99.1 H ABG Base Excess -10.0 L -9.6 L VBG pH VBG pCO2 VBG pO2 VBG HCO3 VBG O2 Saturation VBG Base Excess Respiration Rate Not Reportable 18 O2 Delivery Device Not Reportable ventilator Ventilator Type Not Reportable 500 Vent Mode Not Reportable Cmv FiO2 Not Reportable 60 Inspiratory Time Not Reportable 1.0 PEEP Not Reportable 5 Pressure Support Not Reportable Not Reportable Pressure Control Not Reportable Not Reportable EPAP Not Reportable Not Reportable IPAP Not Reportable Not Reportable BiPAP Not Reportable Not Reportable Sodium 143 Potassium 3.6 Chloride 116 H Carbon Dioxide 17 L Anion Gap 10 BUN 26 H Creatinine 0.80 Est GFR ( Amer) 85.1 Est GFR (Non-Af Amer) 70.3 BUN/Creatinine Ratio 32.5 H Glucose 184 H Lactic Acid Calcium 7.1 L Phosphorus Magnesium 2.5 Total Bilirubin Direct Bilirubin Indirect Bilirubin AST ALT Alkaline Phosphatase Troponin I Total Protein Albumin Globulin Albumin/Globulin Ratio 09/01/18 09/01/18 09/02/18 21:50 21:53 05:10 WBC RBC Hgb Hct MCV MCH MCHC RDW Plt Count MPV INR (Anticoag Therapy) Patient Temperature ABG pH 7.34 L ABG pH (Temp Correct) ABG pCO2 27 L ABG pCO2 (Temp Corrct ABG pO2 157 H ABG pO2 (Temp Correct ABG HCO3 17.5 L ABG O2 Saturation 100.0 H ABG Base Excess -9.6 L VBG pH VBG pCO2 VBG pO2 VBG HCO3 VBG O2 Saturation VBG Base Excess Respiration Rate O2 Delivery Device Ventilator Type Vent Mode FiO2 Inspiratory Time PEEP Pressure Support Pressure Control EPAP IPAP BiPAP Sodium 142 Potassium 3.6 Chloride 115 H Carbon Dioxide 23 Anion Gap 4 BUN 23 Creatinine 0.72 Est GFR ( Amer) 96.1 Est GFR (Non-Af Amer) 79.4 BUN/Creatinine Ratio 31.9 H Glucose 252 H Lactic Acid 3.4 H* Calcium 8.1 L Phosphorus 2.4 L Magnesium 2.2 Total Bilirubin 0.50 Direct Bilirubin 0.30 H Indirect Bilirubin 0.2 L AST 61 H ALT 22 Alkaline Phosphatase 57 Troponin I Total Protein 3.8 L Albumin 1.9 L Globulin 1.9 L Albumin/Globulin Ratio 1.0 09/02/18 09/02/18 09/02/18 05:10 05:10 05:15 WBC 13.4 H RBC 3.37 L Hgb 9.3 L Hct 29 L MCV 85 MCH 28 MCHC 32 RDW 15 Plt Count 272 MPV 7.8 INR (Anticoag Therapy) 1.36 H Patient Temperature ABG pH 7.35 ABG pH (Temp Correct) ABG pCO2 39 ABG pCO2 (Temp Corrct ABG pO2 114 H ABG pO2 (Temp Correct ABG HCO3 22.0 ABG O2 Saturation 99.3 H ABG Base Excess -3.8 L VBG pH VBG pCO2 VBG pO2 VBG HCO3 VBG O2 Saturation VBG Base Excess Respiration Rate O2 Delivery Device Ventilator Type Vent Mode FiO2 Inspiratory Time PEEP Pressure Support Pressure Control EPAP IPAP BiPAP Sodium Potassium Chloride Carbon Dioxide Anion Gap BUN Creatinine Est GFR ( Amer) Est GFR (Non-Af Amer) BUN/Creatinine Ratio Glucose Lactic Acid Calcium Phosphorus Magnesium Total Bilirubin Direct Bilirubin Indirect Bilirubin AST ALT Alkaline Phosphatase Troponin I Total Protein Albumin Globulin Albumin/Globulin Ratio Intake & Output 09/01/18 09/02/18 09/02/18 22:59 06:59 14:59 Intake Total 4199 2113 Output Total 331 677 37 Balance 3868 1436 -37 Weight 179 lb 0.246 oz Intake: IV Fluids 2643 958 LR 2016 72 NS 87 161 Sodium Bicarbonate 540 725 IVPB 405 422 ABX - VANCOMYCIN 290 310 ABX - ZOSYN 115 112 Medicated IV 1151 733 CC - Amiodarone 716 180 CC - Norepinephrine/ 136 Levophed CC - Phenylephrine/ 62 55 Neosynephrine CC - Vasopressin/ 69 62 Pitressin Calcium 110 310 GEN - Magnesium 58 15 KCl 111 Output: NG Tube Drainage Amount 125 Wound Vac 100 150 Frost 231 402 37 Physical exam: Gen- elderly woman, intubated, sedated CV- RRR Resp- CTAB Abd- soft, hypoactive bowel sounds present, VAC dressing in place Ext- +pedal pulses, anasarca, + edema, no significant mottling present Drips: - fentanyl gtt - versed gtt - vasopressin @ 0.04 - bicarb @100 cc/hr - amiodarone gtt Abx: Vancomycin Zosyn Micro: body fluid- +clostridium perfringins Radiology: CXR 09/02- reviewed, no evidence of PTX, ETT in place, pleural effusions Ppx: HSQ Protonix Lines: LIJ CVL Right femoral CVL Right femoral A line NGT Frost A/P: 73 F with failed outpatient management of diverticulitis, who was improving with conservative management but developed acute decompensation on after barium enema, POD 2 from exploratory laparotomy, sigmoid colectomy, open abdomen, improving but condition remains guarded. Neuro- sedated for open abdomen, on versed and fentanyl CV- amio gtt for afib, currently in NSR Resp- vent settings high, 90% FIO2 and PEEP 7, but abdomen soft, no evidence of abdominal compartment syndrome, likely from pleural effusions from aggressive resuscitation. Patient had possible aspiration? GI- NPO, NGT, open abdomen Renal- UOP improving with IVF resuscitation yesterday, Cr 0.8 ID- on vanc/zosyn for intraabdominal sepsis, remains afebrile, WBC stable Plan to return to OR today with Dr. Sanchez at 9am for washout, second look.
[2018-09-02] MEDS: PTO:Budesonide/Formote 160/4.5(NF) MDI INH SCH ×2 (07:54→22:02)
[2018-09-02] MEDS ORDERED: Bupivacaine 0.25% SDV PF* 10 ML VIAL INJ ONE (08:47)
[2018-09-02] MEDS ORDERED: Vancomycin Trough Check NOTE FOLLOW UP ONE (09:30)
[2018-09-02] MEDS ORDERED: fentaNYL* 50 MCG/ML 2 ML VIAL (100 MCG VIAL) IV PRN (09:44)
[2018-09-02] MEDS ORDERED: Naloxone* 0.4 MG/ML 1 ML VIAL IV PRN (09:44)
[2018-09-02] MEDS: TRIAMCINOLONE BOTH NARES SCH (09:58)
--- NOTE | 2018-09-02 10:54 | BRIEFOPN ---
Brief Operative Note - Surgery Procedures: OPERATIVE REPORT Pre-op: Sepsis, peritonitis Post-Op: Same Procedure:Exploratory laparotomy, abdominal washout/irrigation, placement of new wound VAC Surgeon: MD Daniel Asst: none Anes: general with Dr. Layne IVF:min EBL:min Specimen: None Drain: none Wound: 3 To PACU
[2018-09-02 12:07] LABS: Hematocrit 29 % (35-47); Hemoglobin 9.4 g/dL (12.0-16.0); Mean Corpuscular HGB Conc 33 g/dL (31-36); Mean Corpuscular Hemoglobin 28 pg (27-31); Mean Corpuscular Volume 85 fL (80-97); Mean Platelet Volume 7.6 fL (7.4-10.4); Platelet Count 242 10^3/uL (150-450); Red Blood Count 3.36 10^6 /uL (3.70-4.87); Red Cell Distribution Width 15 % (10.5-15); White Blood Count 12.5 10^3/uL (3.5-10.8)
[2018-09-02] MEDS: methylPREDNISolone SOD 40 MG* 1 ML VIAL IV SCH (12:07)
[2018-09-02] MEDS: Pantoprazole IV* 40 MG IV SCH (12:07)
[2018-09-02 12:20] LABS: BUN/Creatinine Ratio 35.5 (8-20); Calcium 7.5 mg/dL (8.6-10.3); EGFR African American 114.2 (>60); EGFR Non-African American 94.4 (>60); Magnesium 1.9 mg/dL (1.9-2.7); Potassium 3.2 mmol/L (3.5-5.0)
--- NOTE | 2018-09-02 12:28 | OP ---
DATE OF OPERATION: 09/02/18 - ROOM #ICU-07 DATE OF : 45 SURGEON: Demetrius Sanchez MD RADIO INTERFERENCE TROUBLE SHOOTER: None. ANESTHESIOLOGIST: Dr. Layne. ANESTHESIA: General. PRE-OP DIAGNOSIS: Sepsis with peritonitis, status post sigmoid colectomy for colonic perforation. POST-OP DIAGNOSIS: Sepsis with peritonitis, status post sigmoid colectomy for colonic perforation. OPERATIVE PROCEDURE: Exploratory laparotomy, abdominal wash out/irrigation with placement of new wound VAC and open abdomen. ESTIMATED BLOOD LOSS: Minimal. IV FLUIDS: Minimal. SPECIMENS: None. WOUND CLASSIFICATION: III. COMPLICATIONS: None. DRAINS: None. FINDINGS: All bile was viable without evidence of purulent peritonitis. The staple line of the descending colon from the previous exploratory laparotomy appeared to be ischemic and a new staple line was placed and oversewn. There is no evidence of leak. BRIEF HISTORY: Ms. Darline Spencer is a 73-year-old woman who underwent an emergent exploratory laparotomy 48 hours ago for perforated sigmoid colon with purulent peritonitis and profound sepsis. Her abdomen has been left open in the intensive care unit. She remained intubated. She was profoundly septic over the past 36 hours. It has improved dramatically over the past 12 hours with intensive care. She has now returned to the operative room for a planned exploratory laparotomy with abdominal washout and placed in a new wound VAC. Ultimate plans will be creation of a colostomy with abdominal wall closure. The procedure was once again discussed with her healthcare proxy, Cely Dumont and the risks and benefits were all explained. These risks were the same as those outlined in the dictated operative note from 08/31/18. PROCEDURE: Written informed consent was obtained, the abdomen was marked with indelible ink. The patient was to the operating room, placed in the supine position. Appropriate monitoring devices and anesthesia were administered. The previous wound VAC was removed and the abdomen was prepped with Betadine paint. Timeout verification was completed. The existing visceral protector which of Ioban was removed. All 4 quads of the abdomen were then evaluated and irrigated. There was some fibrinous exudate, which was removed. The abdomen was irrigated with approximately 7 to 8 L of warm saline. The small bowel was evaluated. It was all completely viable other than having some inflammatory change from the previous process. The appendix was normal. The cecum was mildly distended as well as the transverse colon. At the proximal descending colon where the colon had been stapled proximally at the previous operation, this appeared to be somewhat dusky and on manipulation, there may have been a small amount of leakage of stool and thus I stapled this more proximally by about a centimeter using a TA60 green load of the staple line with 2-0 interrupted Vicryl suture. The rectal stump appeared to be unremarkable and the gallbladder was normal. The gallbladder was distended. I did not appreciate gallstones, however. The stomach was normal and the orogastric tube was in good position. When this was completed, a new Ioban visceral protector was placed over the omentum and placed deep in the recesses laterally and superiorly and inferiorly. The new wound VAC was then placed and the fascia was not closed. The patient tolerated the procedure well, was taken to the recovery room in stable condition. [id number]/CPS #: [id number] MTDD
--- NOTE | 2018-09-02 12:40 | PN ---
Progress Note - Progress Note Date of Service: 09/02/18 Note: Progress Note -- Critical Care 24 hour events -remains intubated; on high fio2 requirements still -overnight tachy arrythmia with rapid afib, improved after amio started -aafebrile, tmax 101 yesterday -making more after multiple IVF boluses yesterday -diffuse edema+; wound vac in place -went to OR this morning for washout of abd by Dr Sanchez -currently in NSR, no further arrythmias noted; some PVCs/APCs noted Tele: now NSR Vitals: Vital Signs Temp 96.4 F 09/02/18 12:00 Pulse 77 09/02/18 12:00 Resp 19 09/02/18 09:00 BP 91/57 09/02/18 12:00 Pulse Ox 98 09/02/18 12:00 Intake & Output 09/01/18 09/02/18 09/02/18 18:59 06:59 18:59 Intake Total 2437 6312 384 Output Total 580 825 256 Balance 1857 5487 128 Weight 81.2 kg Intake: IV Fluids 1465 3601 343 LR 1010 2088 NS 455 248 Sodium Bicarbonate 1265 343 IVPB 542 827 41 ABX - VANCOMYCIN 299 600 35 ABX - ZOSYN 113 227 6 Sodium Bicarbonate 130 Medicated IV 430 1884 CC - Amiodarone 896 CC - Norepinephrine/ 354 136 Levophed CC - Phenylephrine/ 117 Neosynephrine CC - Vasopressin/ 76 131 Pitressin Calcium 420 GEN - Magnesium 73 KCl 111 Output: NG Tube Drainage Amount 75 125 Wound Vac 275 150 Wall 230 550 256 O2/Vent: intubated; AC 18/500/+7/90% Infusions: neosynephrine off, vasopressin, sodium bicarb 100cc/hr, versed, fentanyl Current Medications: Albuterol (Ventolin 2.5 Mg/3 Ml Neb.Dang*) 2.5 mg INH Q6H PRN PRN Reason: WHEEZING Last Admin: 09/01/18 20:33 Dose: 2.5 mg Budesonide/Formoterol Fumarate (Symbicort 160/4.5 (Nf)) 2 puff INH BID EMIL; Protocol Last Admin: 09/02/18 07:54 Dose: Not Given Chlorhexidine Gluconate (Peridex Mouth Wash 0.12%*) 15 ml TOPICAL Q4H EMIL Last Admin: 09/02/18 12:07 Dose: 15 ml Heparin Sodium (Porcine) (Heparin Vial(*)) 5,000 units SUBCUT Q8HR EMIL Last Admin: 09/02/18 05:41 Dose: 5,000 units Piperacillin Sod/Tazobactam (Sod 3.375 gm/ Sodium Chloride) 100 mls @ 25 mls/ hr IVPB Q8H EMIL Last Admin: 09/02/18 08:34 Dose: 25 mls/hr Vasopressin 100 units/ (Dextrose) 250 mls @ 9 mls/hr IVPB Q24H EMIL; Protocol Last Admin: 09/01/18 23:30 Dose: 9 mls/hr Fentanyl Citrate (Fentanyl Infusion Bag 50 Mcg/Ml 50 Ml) 2,500 mcg in 50 mls @ 1 mls/hr IV Q72H EMIL; Protocol Last Admin: 09/02/18 07:30 Dose: 1 mls/hr Vancomycin HCl 750 mg/ Sodium (Chloride) 250 mls @ 166.667 mls/hr IVPB Q8H EMIL Last Admin: 09/02/18 01:00 Dose: 166.667 mls/hr Amiodarone HCl (Nexterone 360 Mg/200 Ml Ivpremix*) 360 mg in 200 mls @ 16.667 mls/hr IV .SEE PROTOCOL EMIL Last Admin: 09/02/18 01:50 Dose: 16.667 mls/hr Phenylephrine HCl 50 mg/ (Sodium Chloride) 250 mls @ 30 mls/hr IV Q8H EMIL; Protocol Last Admin: 09/02/18 12:13 Dose: Not Given Midazolam HCl 100 mg/ Sodium (Chloride) 100 mls @ 4 mls/hr IV Q20H EMIL; Protocol Last Admin: 09/01/18 23:14 Dose: Not Given Acetaminophen (Ofirmev*) 100 mls @ 400 mls/hr IVPB Q6H PRN PRN Reason: Fever >101 Stop: 09/02/18 22:48 Magnesium Sulfate (Magnesium Sulfate 2 Gm Iv*) 2 gm in 50 mls @ 50 mls/hr IVPB ONCE ONE Stop: 09/02/18 13:47 Potassium Chloride (Potassium Chloride 20 Meq/100 Ml Ivpremix*) 20 meq in 100 mls @ 50 mls/hr IV Q2H EMIL Stop: 09/02/18 18:59 Dextrose (D5w 1000 Ml Bag*) 1,000 mls @ 75 mls/hr IV PER RATE [facility] Methylprednisolone Sodium Succinate (Solu-Medrol 40 Mg) 40 mg IV Q12H [facility] Last Admin: 09/02/18 12:07 Dose: 40 mg Ondansetron HCl (Zofran Inj*) 4 mg IV Q6H PRN PRN Reason: NAUSEA Pantoprazole Sodium (Protonix Iv*) 40 mg IV Q24H [facility] Last Admin: 09/02/18 12:07 Dose: 40 mg Pharmacy Consult (Zosyn Per Pharmacy*) 1 note FOLLOW UP .ZOSYN PER PHARMACY [facility] Pharmacy Consult (Vancomycin Per Pharmacy*) 1 note FOLLOW UP .VANC PER PHARMACY [facility]; Protocol Sodium Chloride (Sodium Chloride 0.65% Nasal Alva*) 1 spray BOTH NARES Q4H PRN PRN Reason: DISCOMFORT Last Admin: 08/31/18 08:47 Dose: 1 nasal.spr Triamcinolone Acetonide (Nasacort Aq Nasal Alva*) 1 spray BOTH NARES QAM [facility] Last Admin: 09/02/18 09:58 Dose: Not Given Physical Exam: Constitutional: intubated, sedated, no resp distress, no diaphoresis Head: normocephalic, atraumatic Eyes: no pallor, no icterus ENT: moist mucous membranes Neck: soft, supple, no jvd CVS: tachy, regular, no murmur Resp: bilateral air entry, no rhales, no wheezing/rhales Abdomen/GI: soft, open abd with wound vac+ Ext/Msk: warm, pulses+, no edema Skin: intact, warm; no further mottling, no cyanosis at toes Neuro: intubated, sedated, pupils reactive, exam limited Labs: Laboratory Results - last 24 hr 09/01/18 09/01/18 09/01/18 16:44 16:44 16:44 WBC 12.1 H RBC 4.19 Hgb 11.5 L Hct 36 MCV 86 MCH 28 MCHC 32 RDW 15 Plt Count 361 MPV 7.9 Neut % (Auto) Lymph % (Auto) [place] % (Auto) Eos % (Auto) Baso % (Auto) Absolute Neuts (auto) Absolute Lymphs (auto) Absolute Monos (auto) Absolute Eos (auto) Absolute Basos (auto) Absolute Nucleated RBC Nucleated RBC % INR (Anticoag Therapy) Patient Temperature ABG pH ABG pH (Temp Correct) ABG pCO2 ABG pCO2 (Temp Corrct ABG pO2 ABG pO2 (Temp Correct ABG HCO3 ABG O2 Saturation ABG Base Excess VBG pH 7.31 L VBG pCO2 30 L VBG pO2 41.0 VBG HCO3 16.6 L VBG O2 Saturation 74.0 VBG Base Excess -9.8 L Respiration Rate O2 Delivery Device Ventilator Type Vent Mode FiO2 Inspiratory Time PEEP Pressure Support Pressure Control EPAP IPAP BiPAP Sodium 145 Potassium 3.9 Chloride 118 H Carbon Dioxide 16 L Anion Gap 11 BUN 27 H Creatinine 0.92 Est GFR ( Amer) 72.4 Est GFR (Non-Af Amer) 59.8 BUN/Creatinine Ratio 29.3 H Glucose 129 H Lactic Acid Calcium 7.1 L Phosphorus Magnesium 1.9 Total Bilirubin Direct Bilirubin Indirect Bilirubin AST ALT Alkaline Phosphatase Total Creatine Kinase Total Protein Albumin Globulin Albumin/Globulin Ratio Vancomycin Trough 09/01/18 09/01/18 09/01/18 16:51 18:29 20:25 WBC RBC Hgb Hct MCV MCH MCHC RDW Plt Count MPV Neut % (Auto) Lymph % (Auto) [place] % (Auto) Eos % (Auto) Baso % (Auto) Absolute Neuts (auto) Absolute Lymphs (auto) Absolute Monos (auto) Absolute Eos (auto) Absolute Basos (auto) Absolute Nucleated RBC Nucleated RBC % INR (Anticoag Therapy) Patient Temperature Not Reportable Not Reportable ABG pH 7.35 7.34 L ABG pH (Temp Correct) Not Reportable ABG pCO2 25 L 27 L ABG pCO2 (Temp Corrct Not Reportable ABG pO2 80 154 H ABG pO2 (Temp Correct Not Reportable ABG HCO3 17.1 L 17.4 L ABG O2 Saturation 98.7 H 99.1 H ABG Base Excess -10.0 L -9.6 L VBG pH VBG pCO2 VBG pO2 VBG HCO3 VBG O2 Saturation VBG Base Excess Respiration Rate Not Reportable 18 O2 Delivery Device Not Reportable ventilator Ventilator Type Not Reportable 500 Vent Mode Not Reportable Cmv FiO2 Not Reportable 60 Inspiratory Time Not Reportable 1.0 PEEP Not Reportable 5 Pressure Support Not Reportable Not Reportable Pressure Control Not Reportable Not Reportable EPAP Not Reportable Not Reportable IPAP Not Reportable Not Reportable BiPAP Not Reportable Not Reportable Sodium Potassium Chloride Carbon Dioxide Anion Gap BUN Creatinine Est GFR ( Amer) Est GFR (Non-Af Amer) BUN/Creatinine Ratio Glucose Lactic Acid 4.4 H* Calcium Phosphorus Magnesium Total Bilirubin Direct Bilirubin Indirect Bilirubin AST ALT Alkaline Phosphatase Total Creatine Kinase Total Protein Albumin Globulin Albumin/Globulin Ratio Vancomycin Trough 09/01/18 09/01/18 09/01/18 21:00 21:50 21:53 WBC RBC Hgb Hct MCV MCH MCHC RDW Plt Count MPV Neut % (Auto) Lymph % (Auto) [place] % (Auto) Eos % (Auto) Baso % (Auto) Absolute Neuts (auto) Absolute Lymphs (auto) Absolute Monos (auto) Absolute Eos (auto) Absolute Basos (auto) Absolute Nucleated RBC Nucleated RBC % INR (Anticoag Therapy) Patient Temperature ABG pH 7.34 L ABG pH (Temp Correct) ABG pCO2 27 L ABG pCO2 (Temp Corrct ABG pO2 157 H ABG pO2 (Temp Correct ABG HCO3 17.5 L ABG O2 Saturation 100.0 H ABG Base Excess -9.6 L VBG pH VBG pCO2 VBG pO2 VBG HCO3 VBG O2 Saturation VBG Base Excess Respiration Rate O2 Delivery Device Ventilator Type Vent Mode FiO2 Inspiratory Time PEEP Pressure Support Pressure Control EPAP IPAP BiPAP Sodium 143 Potassium 3.6 Chloride 116 H Carbon Dioxide 17 L Anion Gap 10 BUN 26 H Creatinine 0.80 Est GFR ( Amer) 85.1 Est GFR (Non-Af Amer) 70.3 BUN/Creatinine Ratio 32.5 H Glucose 184 H Lactic Acid 3.4 H* Calcium 7.1 L Phosphorus Magnesium 2.5 Total Bilirubin Direct Bilirubin Indirect Bilirubin AST ALT Alkaline Phosphatase Total Creatine Kinase Total Protein Albumin Globulin Albumin/Globulin Ratio Vancomycin Trough 09/02/18 09/02/18 09/02/18 05:10 05:10 05:10 WBC 13.4 H RBC 3.37 L Hgb 9.3 L Hct 29 L MCV 85 MCH 28 MCHC 32 RDW 15 Plt Count 272 MPV 7.8 Neut % (Auto) Lymph % (Auto) [place] % (Auto) Eos % (Auto) Baso % (Auto) Absolute Neuts (auto) Absolute Lymphs (auto) Absolute Monos (auto) Absolute Eos (auto) Absolute Basos (auto) Absolute Nucleated RBC Nucleated RBC % INR (Anticoag Therapy) 1.36 H Patient Temperature ABG pH ABG pH (Temp Correct) ABG pCO2 ABG pCO2 (Temp Corrct ABG pO2 ABG pO2 (Temp Correct ABG HCO3 ABG O2 Saturation ABG Base Excess VBG pH VBG pCO2 VBG pO2 VBG HCO3 VBG O2 Saturation VBG Base Excess Respiration Rate O2 Delivery Device Ventilator Type Vent Mode FiO2 Inspiratory Time PEEP Pressure Support Pressure Control EPAP IPAP BiPAP Sodium 142 Potassium 3.6 Chloride 115 H Carbon Dioxide 23 Anion Gap 4 BUN 23 Creatinine 0.72 Est GFR ( Amer) 96.1 Est GFR (Non-Af Amer) 79.4 BUN/Creatinine Ratio 31.9 H Glucose 252 H Lactic Acid Calcium 8.1 L Phosphorus 2.4 L Magnesium 2.2 Total Bilirubin 0.50 Direct Bilirubin 0.30 H Indirect Bilirubin 0.2 L AST 61 H ALT 22 Alkaline Phosphatase 57 Total Creatine Kinase Total Protein 3.8 L Albumin 1.9 L Globulin 1.9 L Albumin/Globulin Ratio 1.0 Vancomycin Trough 09/02/18 09/02/18 09/02/18 05:15 11:51 11:51 WBC 12.5 H RBC 3.36 L Hgb 9.4 L Hct 29 L MCV 85 MCH 28 MCHC 33 RDW 15 Plt Count 242 MPV 7.6 Neut % (Auto) 86.1 Lymph % (Auto) 5.0 [place] % (Auto) 8.1 Eos % (Auto) 0.6 Baso % (Auto) 0.2 Absolute Neuts (auto) 10.8 H Absolute Lymphs (auto) 0.6 L Absolute Monos (auto) 1.0 H Absolute Eos (auto) 0.1 Absolute Basos (auto) 0.0 Absolute Nucleated RBC 0.1 Nucleated RBC % 0.4 INR (Anticoag Therapy) Patient Temperature ABG pH 7.35 ABG pH (Temp Correct) ABG pCO2 39 ABG pCO2 (Temp Corrct ABG pO2 114 H ABG pO2 (Temp Correct ABG HCO3 22.0 ABG O2 Saturation 99.3 H ABG Base Excess -3.8 L VBG pH VBG pCO2 VBG pO2 VBG HCO3 VBG O2 Saturation VBG Base Excess Respiration Rate O2 Delivery Device Ventilator Type Vent Mode FiO2 Inspiratory Time PEEP Pressure Support Pressure Control EPAP IPAP BiPAP Sodium 145 Potassium 3.2 L Chloride 115 H Carbon Dioxide 25 Anion Gap 5 BUN 22 Creatinine 0.62 Est GFR ( Amer) 114.2 Est GFR (Non-Af Amer) 94.4 BUN/Creatinine Ratio 35.5 H Glucose 260 H Lactic Acid Calcium 7.5 L Phosphorus Magnesium 1.9 Total Bilirubin Direct Bilirubin Indirect Bilirubin AST ALT Alkaline Phosphatase Total Creatine Kinase 950 H Total Protein Albumin Globulin Albumin/Globulin Ratio Vancomycin Trough 11.4 09/02/18 09/02/18 11:51 12:18 WBC RBC Hgb Hct MCV MCH MCHC RDW Plt Count MPV Neut % (Auto) Lymph % (Auto) [place] % (Auto) Eos % (Auto) Baso % (Auto) Absolute Neuts (auto) Absolute Lymphs (auto) Absolute Monos (auto) Absolute Eos (auto) Absolute Basos (auto) Absolute Nucleated RBC Nucleated RBC % INR (Anticoag Therapy) Patient Temperature Not Reportable ABG pH 7.38 ABG pH (Temp Correct) Not Reportable ABG pCO2 42 ABG pCO2 (Temp Corrct Not Reportable ABG pO2 95 ABG pO2 (Temp Correct Not Reportable ABG HCO3 24.6 ABG O2 Saturation 99.2 H ABG Base Excess -0.4 VBG pH VBG pCO2 VBG pO2 VBG HCO3 VBG O2 Saturation VBG Base Excess Respiration Rate 18 O2 Delivery Device Ventilator Type Not Reportable Vent Mode Not Reportable FiO2 90 Inspiratory Time Not Reportable PEEP 7 Pressure Support Not Reportable Pressure Control Not Reportable EPAP Not Reportable IPAP Not Reportable BiPAP Not Reportable Sodium Potassium Chloride Carbon Dioxide Anion Gap BUN Creatinine Est GFR ( Amer) Est GFR (Non-Af Amer) BUN/Creatinine Ratio Glucose Lactic Acid 1.6 Calcium Phosphorus Magnesium Total Bilirubin Direct Bilirubin Indirect Bilirubin AST ALT Alkaline Phosphatase Total Creatine Kinase Total Protein Albumin Globulin Albumin/Globulin Ratio Vancomycin Trough Imaging: CT abd 08/29 - small focus of free intraperitoneal air, stool in colon, mucosal thickening of sigmoid colon CXR 08/31- left effusion, atelectasis+ KUB 08/31 contrast+, stool+ CXR 09/01 - reviewed report; I noted right sided increased haziness, lower lobe atelectasis noted on right; ETT above radha+, gastric tube+ cxr 09/02 - ett above radha; RLL atelectasis+, ogt+ in stomach/below diaphragm Assessment: 73y F w/pmhx of MV prolapse, asthma, recent diverticulitus; presented to ER for abdominal pain and fever x2 days on 08/29. Found to have diverticulitus 15 days prior and was treated with Cipro/flagyl abx PO. Symptoms restarted 2 days prior to admission. Then progressed to nausea/vom. CT abd/ pelvis demonstrated small focus of free intraperitoneal air, stool in colon, mucosal thickening of sigmoid colon. She had fever 103, tachycardia, stable BP. She was admitted for abdominal sepsis, started on IVF infusion/bolus, IV abx zosyn. She was seen by surgery, was going to get a gastrograffin study today but afterward vomited, developed respiratory distress and tachycardia to 160s. -Transferred to ICU 08/31. Given adenosine for SVT, then Cardizem for possible Atrial Fib with RVR, remains with tachypnea. -Cardiopulmonary Arrest 08/31, ROSC <5min; OR for ex-lap, pus+, sigmoid/ descending resection, open abd+; sedated/intubated/pressors+ -Acute Hypoxic Respiratory Failure; intubated 08/31 -Cardiac Arrest 2/ to suspected respiratory failure? vs septic shock? 08/31 -Suspected Aspiration pneumonitis on right, possible ARDS -Acute perforated diverticulitus with peritonitis -s/p Ex-lap, sigmoid/descending colon resection, abdominal washout, open abd with vac+ 08/31; second washout 09/02 -Septic Shock -YOKO -Metabolic Acidosis -hyperglycemia Plan: Neuro- -sedated; maintain versed and fentanyl infusion ; can lower down -no plan on sedation weaning yet maintain sedation while open abdomen -post ROSC 08/31 she was moving and reaching for ETT so I suspect there should be some intact neurological status -Delirium prec; avoid BDZ CVS- -Septic Shock from perforated diverticulitus/peritonitis -on vasopressin now; off viri; off levophed due to tachyarrythmia -AFib; now converted to NSR; cont amio infusion protocol for 24 hours -Titrate pressors to Maintain MAP>65 -making urine -d/c bicarb; start d5w 75cc/hr -mottling resolved, perfusion improved to extremities -IV abx Resp- -Intubated; on AC 90%, peep 7; overall RR back to 18-10 sync'ed with vent -ABG with PO2 90s -CXR 09/02 with no sig congestion; mild atelectasis noted on right base -no secretions being suctioned -will maintain peep for recruietment, can increase further -CXR tomorrow -exp rhonchi/wheeze improved; dec solumedrol to 40mg IV daily -Bronchodilators q4h PRN wheeze -CT chest 08/31 - no clear infiltrateive process noted, small effusions -cont IV abx for aspiration coverage -Wean Fio2 to keep sat>92% -Bronchodilators PRN, Aspiration prec ID- -tmax 101 yesteday, now afebrile; wbc decreasing to 12 now -CT abd/pelvis with thickened sigmoid, free air 08/29; suspected diverticulitus with perforation -CT abd/pelvis 08/31 with residual free abd air -CXR 519 with some atelectasis noted -s/p ex-lap, peritonitis/pus, sigmoid/desc resection; open abd 08/31; second washout 09/02 -peritoneal cultures with clostridiium perfringens+; no other growth noted -Cont IV zosyn (08/29) (day#5); will d/c vancomycin ; abdominal and aspiration coverage GI- -NPO -OGT to intermittent suction; far less output now -hg stable -Open abdomen with wound vac+, second washout this morning 09/02; wound checks -maintain sedation -plan for OR tomorrow (monday for colostomy and closure of open abd) -IV abx -IVF -GI prophylaxis ppi IV -prn antiemetics Renal- -Cr okay; suspect significant hypovolemia yesterday with collapsed IVC on bedside US -metabolic acidossi improved; urine output improved now -d/c bicarb infusion -hypernatremia and hyperchloremia; start d5w 75cc/hr -replete IV Kcl and IV Mgsulfate 2gm -strict I/O, replete to keep K>4, Mg>2 -wall+ Heme- -hg stable 13-10-9; no bleeding noted anywhere; concentrated prior? -plt stable -DVT proph - SCD; heparin sq q8h Endo- Maintain BG<200, insulin protocol as needed. Hyperglycemia from D5 infusion probably; fingerstick q6h; may need insulin infusion if not improving. Sliding scale for now. Musculsk- pressure ulcer prophylaxis. Bedrest. Wounds- open abd with vac; wound care Nutrition- NPO DVT prophylaxis: SCD, heparin sq GI prophylaxis: ppi Central Line: Right fem 08/31; Left IJ TLC 09/01 Arterial Line: right fem 08/31 Wall Cathetor: yes Disposition: Patient requires Critical Care/ICU for acute hypoxic respiratory failure/intubated, septic shock on pressors, post cardiac arrest, ex-lap with open abdomen Patient Clinical Status: critical Code Status: full code Total Critical Care time is 50 minutes, excluding procedures/teaching Eduar Echavarria MD Disability Coordinator (Electronically Signed)
[2018-09-02 12:45] LABS: Vancomycin Trough 11.4 mcg/mL
[2018-09-02] MEDS ORDERED: NS 0.9% 1000 ML** 1,000 ML IV ONE (12:45)
[2018-09-02] MEDS ORDERED: Magnesium Sulfate 2 GM IV* 2 GM/50 ML BAG IVPB ONE (12:48)
[2018-09-02 12:49] LABS: ABS Eosinophils 0.1 10^3/ul (0-0.6); ABS Lymphocytes 0.6 10^3/ul (1.0-4.8); ABS Neutrophils 10.8 10^3/ul (1.5-7.7); ABS Nucleated RBC 0.1 10^3/ul; Eosinophil % 0.6 %; Nucleated Red Blood Cells % 0.4
[2018-09-02] MEDS ORDERED: D5W 1000 ML BAG* 850 ML with Sodium Bicarbonate 8.4% IV* 150 MEQ IV SCH ×2 (13:00)
[2018-09-02] MEDS ORDERED: D5W 1000 ML BAG* 1,000 ML IV SCH (13:00)
[2018-09-02] MEDS: KCL 20 MEQ/100 ML IVPREMIX* 20 MEQ/100 ML BAG IV SCH ×3 (13:17→17:15)
[2018-09-02] MEDS ORDERED: Dextrose 50% Syringe 50 ML* 25 GM/50 ML SYRINGE IV PUSH PRN (13:18)
[2018-09-02] MEDS: Midazolam IV for DRIP* 100 MG in NS 0.9% 100 ML* 80 ML IV SCH ×2 (14:37→21:59)
[2018-09-02] MEDS ORDERED: Insulin LISPRO* 1 UNITS UNIT SUBCUT SCH (18:30)
[2018-09-02] MEDS ORDERED: Albumin Human 5%* 12.5 GM/250 ML BTL IV SCH ×2 (19:00)
[2018-09-02 20:20] LABS: BUN/Creatinine Ratio 35.6 (8-20); Calcium 7.6 mg/dL (8.6-10.3); EGFR African American 120.9 (>60); EGFR Non-African American 99.9 (>60); Potassium 4.3 mmol/L (3.5-5.0)
[2018-09-02] MEDS: Insulin LISPRO* 1 UNITS UNIT SUBCUT SCH (22:22)
[2018-09-03] MEDS: Chlorhexidine MOUTHWASH 0.12%* 15 ML UDC TOPICAL SCH ×6 (01:06→20:20)
[2018-09-03] MEDS: ZOSYN 3.375 GM Q8H per EXTENDED INFUSION IVPB SCH ×6 (01:12→17:27)
[2018-09-03] MEDS: Insulin LISPRO* 1 UNITS UNIT SUBCUT SCH ×6 (02:13→22:24)
[2018-09-03] MEDS: Amiodarone 360 MG IVPREMIX* 360 MG/200 ML BAG IV SCH ×2 (02:16→14:47)
[2018-09-03] MEDS ORDERED: Vasopressin* 100 UNITS in NS 0.9% 250 ML* 245 ML IVPB SCH (04:00)
[2018-09-03] MEDS: Phenylephrine 10 MG/ML VIAL* 50 MG in NS 0.9% 250 ML* 245 ML IV SCH ×2 (04:18→12:02)
[2018-09-03] MEDS: Heparin VIAL(*) 5000 UNITS/ML VIAL (FIVE THOUSAND) SUBCUT SCH ×3 (06:13→22:23)
[2018-09-03 06:32] LABS: Hematocrit 28 % (35-47); Hemoglobin 9.1 g/dL (12.0-16.0); Mean Corpuscular HGB Conc 33 g/dL (31-36); Mean Corpuscular Hemoglobin 28 pg (27-31); Mean Corpuscular Volume 85 fL (80-97); Mean Platelet Volume 7.6 fL (7.4-10.4); Platelet Count 262 10^3/uL (150-450); Red Cell Distribution Width 16 % (10.5-15); White Blood Count 17.3 10^3/uL (3.5-10.8)
[2018-09-03 06:52] LABS: Albumin 2.3 g/dL (3.2-5.2); Albumin/Globulin Ratio 1.3 (1-3); BUN/Creatinine Ratio 34.4 (8-20); Calcium 7.6 mg/dL (8.6-10.3); EGFR African American 110.1 (>60); Globulin 1.8 g/dL (2-4); Indirect Bilirubin 0.2 mg/dL (0.3-1.0); Magnesium 2.2 mg/dL (1.9-2.7); Phosphorus 1.4 mg/dL (2.5-5.0); Potassium 4.2 mmol/L (3.5-5.0); Total Bilirubin 0.4 mg/dL (0.2-1.0); Total Protein 4.1 g/dL (6.4-8.9)
[2018-09-03] MEDS: PTO:Budesonide/Formote 160/4.5(NF) MDI INH SCH ×2 (07:17→23:48)
[2018-09-03] MEDS: methylPREDNISolone SOD 40 MG* 1 ML VIAL IV SCH (08:23)
[2018-09-03] MEDS: TRIAMCINOLONE BOTH NARES SCH (08:26)
--- NOTE | 2018-09-03 09:51 | ECHO ---
*[facility]* [place] [address] Fax #: [phone] Transthoracic Echocardiogram Patient: Johanna, Height: 60.6 in / Darline Finn 154 cm : 1945 Weight: 180.4 lb / Study Date: 09/03/2018 82 kg Age: 73 BP: 97 / 54 Gender: F BMI/BSA: 34.6 kg/m^2 HR: 62 bpm / 1.8 m^2 *Wheel Polisher: * Jenn Dunlap [facility] RN *Referring Physician: * El Bojorquez *Reading Physician: * Mack Starkey MD Indications: Abnormal EKG. SOB. History: Mitral valve prolapse. Asthma. Conclusions Summary: 1. Left ventricle: The cavity size is mildly reduced. The estimated ejection fraction is 30-35%. Moderate global hypokinesis. There are no regional wall motion abnormalities. There is septal flattening. 2. Right ventricle: The cavity size is moderately to severely dilated. Systolic function is severely reduced. The estimated peak pressure is 39 mm Hg. There is mild pulmonary hypertension. This may be underestimated. 3. Ventricular septum: There is septal flattening of the interventricular septum consistent with RV volume or pressure overload. 4. Mitral valve: There is mild leaftlet prolapse. There is mild regurgitation. 5. Aortic valve: There is mild regurgitation. 6. Tricuspid valve: There is moderate regurgitation. 7. Pericardium, extracardiac: There is no significant pericardial effusion. 8. No prior exams for comparision. Study data: Transthoracic echocardiogram. Procedure: Transthoracic echocardiography was performed. Image quality was fair. The study was technically limited due to patient on ventilator. Complete 2D, spectral Doppler, and color flow Doppler. Patient status: Inpatient. Patient room number: ICU 7. Rhythm: Normal sinus rhythm. The patient is on a ventilator and vasopressors at the time of the exam. Findings Left ventricle: The cavity size is mildly reduced. The estimated ejection fraction is 30-35%. Moderate global hypokinesis. There are no regional wall motion abnormalities. There is septal flattening. There is no consistent Doppler evidence of clinically significant diastolic dysfunction. Right ventricle: The cavity size is moderately to severely dilated. Systolic function is severely reduced. The estimated peak pressure is 39 mm Hg. There is mild pulmonary hypertension. This may be underestimated. Ventricular septum: There is septal flattening of the interventricular septum consistent with RV volume or pressure overload. Left atrium: The atrium is normal in size. Right atrium: The atrium is mildly dilated. Mitral valve: The leaflets are mildly thickened. There is mild leaftlet prolapse. There is no evidence of stenosis. There is mild regurgitation. Aortic valve: The valve is trileaflet. The leaflets are mildly thickened. There is no evidence of stenosis. There is mild regurgitation. Tricuspid valve: The leaflets are normal thickness. There is no evidence of stenosis. There is moderate regurgitation. Pulmonic valve: Not well visualized. There is no evidence of stenosis. There is mild to moderate regurgitation. Aorta: Aortic root: The aortic root is not dilated. Ascending aorta: The ascending aorta is not dilated. Aortic arch: The aortic arch is not visualized. Pericardium: There is no significant pericardial effusion. Pulmonary arteries: Not well visualized. Systemic veins: Inferior vena cava: Unable to evaluate since patient is on mechanical ventilation. Measurements Left ventricle Value Ref Aortic valve Value Ref HUI, LAX (L) 3.5 cm 3.8 - Stella diam, ED 2.0 cm ----- 5.2 Peak v, S 1.56 m/sec ----- ESD, LAX 2.9 cm 2.2 - VTI, S 25.4 cm ----- 3.5 Mean grad, S 5.0 mm Hg ----- FS, LAX (L) 16 % 27 - 45 Peak grad, S 10.0 mm Hg ----- PW, ED, LAX (H) 1.1 cm 0.6 - LVOT/AV, VTI ratio 0.68 ----- 0.9 AR peak v 3.27 m/sec ----- FS (L) 16 % 27 - 45 AR PHT 554 ms ----- IVS/PW, ED 0.97 -------- AR peak grad 43 mm Hg ----- E', lat stella, TDI (L) 4.7 cm/sec >=10.0 E/e', lat stella, TDI 12 -------- Mitral valve Value Ref E', med stella, TDI (L) 4.9 cm/sec >=7.0 Peak E 0.54 m/sec -- --- E/e', med stella, TDI 11 -------- Peak A 1.07 m/sec ----- E', avg, TDI 4.8 cm/sec -------- Decel time 430 ms ----- E/e', avg, TDI 11 <=14 Peak E/A ratio 0.5 -- --- LVOT Value Ref Pulmonic valve Value Ref Peak yesica, S 1.06 m/sec -------- Peak v, S 0.84 m/sec ----- VTI, S 17.2 cm -------- Peak grad, S 3.0 mm Hg ----- Mean grad, S 2 mm Hg -------- Tricuspid valve Value Ref Ventricular septum Value Ref TR peak v 2.8 m/sec <=2.8 IVS, ED (H) 1.1 cm 0.6 - Peak RV-RA grad, S 31 mm Hg ----- 0.9 Aortic root Value Ref Right ventricle Value Ref Root diam 2.3 cm <4.0 HUI, LAX 4.9 cm -------- Root max diam, ED 2.3 cm <4.0 HUI minor ax, A4C (H) 5.7 cm 1.9 - mid 3.5 Ascending aorta Value Ref AAo AP diam, S 2.8 cm ----- Left atrium Value Ref ML dim, A4C 3.5 cm -------- Inferior vena cava Value Ref SI dim, A4C 4.5 cm -------- Diam 2.4 cm ----- Vol/bsa, ES, 1-p 22 ml/m^2 11 - 40 A4C Vol/bsa, ES, A/L 34 ml/m^2 16 - 34 Right atrium Value Ref ML dim, ES, A4C (H) 4.5 cm 2.6 - 4.4 SI dim, ES, A4C (H) 5.4 cm 3.4 - 5.3 Legend: (L) and (H) bethanie values outside specified reference range. Prepared and electronically signed by Mack Starkey MD 09/03/2018 09:51
--- NOTE | 2018-09-03 10:54 | PN ---
Progress Note - Progress Note Date of Service: 09/03/18 SOAP: Subjective: Events of night noted Discussed with Dr. Crawford She is back on pressors and BP lower, urine output poor Sedated on ventilator Objective: Temp Pulse Resp BP Pulse Ox 99.1 F 60 18 87/55 96 09/03/18 10:00 09/03/18 10:00 09/03/18 08:00 09/03/18 10:00 09/03/18 10:00 Intake & Output 09/01/18 09/02/18 09/03/18 09/04/18 06:59 06:59 06:59 06:59 Intake Total 3405 8749 6505.4 Output Total 1155 1405 1058 550 Balance 2250 7344 5447.4 -550 Weight 148 lb 9.465 oz 179 lb 0.246 oz 181 lb 7.047 oz Intake: IV Fluids 2354 5066 4792.2 Albumin 510 D5W 1211 LR 3098 1932 NS 2354 703 372.2 Sodium Bicarbonate 1265 767 IVPB 97 1369 393 ABX - VANCOMYCIN 899 35 ABX - ZOSYN 97 340 358 Sodium Bicarbonate 130 Medicated IV 954 2314 1115.2 CC - Amiodarone 896 398 CC - Norepinephrine/ 954 490 Levophed CC - Phenylephrine/ 117 196 Neosynephrine CC - Vasopressin/ 207 143.2 Pitressin Calcium 420 GEN - Magnesium 73 50 KCl 111 328 IV Narcotic Infusion 205 Fentanyl 55 Versed 150 Oral 0 Output: NG Tube Drainage Amount 350 200 Wound Vac 200 425 490 500 Urine 0 Frost 255 780 568 50 Liquid Stool 300 Estimated Blood Loss 50 Other: Estimated Void Small Date of Last Bowel T Movement # Bowel Movements 1 Estimated Stool Amount Medium # Voids 1 PEX: Sedated Abd is soft and distended. Wound vac in place, serous drainage Laboratory Results - last 24 hr 09/02/18 09/02/18 09/02/18 11:51 11:51 11:51 WBC 12.5 H RBC 3.36 L Hgb 9.4 L Hct 29 L MCV 85 MCH 28 MCHC 33 RDW 15 Plt Count 242 MPV 7.6 Neut % (Auto) 86.1 Lymph % (Auto) 5.0 Madison % (Auto) 8.1 Eos % (Auto) 0.6 Baso % (Auto) 0.2 Absolute Neuts (auto) 10.8 H Absolute Lymphs (auto) 0.6 L Absolute Monos (auto) 1.0 H Absolute Eos (auto) 0.1 Absolute Basos (auto) 0.0 Absolute Nucleated RBC 0.1 Nucleated RBC % 0.4 Patient Temperature ABG pH ABG pH (Temp Correct) ABG pCO2 ABG pCO2 (Temp Corrct ABG pO2 ABG pO2 (Temp Correct ABG HCO3 ABG O2 Saturation ABG Base Excess VBG pH VBG pCO2 VBG pO2 VBG HCO3 VBG O2 Saturation VBG Base Excess Respiration Rate Ventilator Type Vent Mode FiO2 Inspiratory Time PEEP Pressure Support Pressure Control EPAP IPAP BiPAP Sodium 145 Potassium 3.2 L Chloride 115 H Carbon Dioxide 25 Anion Gap 5 BUN 22 Creatinine 0.62 Est GFR ( Amer) 114.2 Est GFR (Non-Af Amer) 94.4 BUN/Creatinine Ratio 35.5 H Glucose 260 H POC Glucose (mg/dL) Lactic Acid 1.6 Calcium 7.5 L Phosphorus Magnesium 1.9 Total Bilirubin Direct Bilirubin Indirect Bilirubin AST ALT Alkaline Phosphatase Total Creatine Kinase 950 H Total Protein Albumin Globulin Albumin/Globulin Ratio Vancomycin Trough 11.4 09/02/18 09/02/18 09/02/18 12:18 18:23 20:00 WBC RBC Hgb Hct MCV MCH MCHC RDW Plt Count MPV Neut % (Auto) Lymph % (Auto) Madison % (Auto) Eos % (Auto) Baso % (Auto) Absolute Neuts (auto) Absolute Lymphs (auto) Absolute Monos (auto) Absolute Eos (auto) Absolute Basos (auto) Absolute Nucleated RBC Nucleated RBC % Patient Temperature Not Reportable ABG pH 7.38 ABG pH (Temp Correct) Not Reportable ABG pCO2 42 ABG pCO2 (Temp Corrct Not Reportable ABG pO2 95 ABG pO2 (Temp Correct Not Reportable ABG HCO3 24.6 ABG O2 Saturation 99.2 H ABG Base Excess -0.4 VBG pH VBG pCO2 VBG pO2 VBG HCO3 VBG O2 Saturation VBG Base Excess Respiration Rate 18 Ventilator Type Not Reportable Vent Mode Not Reportable FiO2 90 Inspiratory Time Not Reportable PEEP 7 Pressure Support Not Reportable Pressure Control Not Reportable EPAP Not Reportable IPAP Not Reportable BiPAP Not Reportable Sodium 141 Potassium 4.3 Chloride 113 H Carbon Dioxide 25 Anion Gap 3 BUN 21 Creatinine 0.59 Est GFR ( Amer) 120.9 Est GFR (Non-Af Amer) 99.9 BUN/Creatinine Ratio 35.6 H Glucose 228 H POC Glucose (mg/dL) 309 H Lactic Acid Calcium 7.6 L Phosphorus Magnesium Total Bilirubin Direct Bilirubin Indirect Bilirubin AST ALT Alkaline Phosphatase Total Creatine Kinase Total Protein Albumin Globulin Albumin/Globulin Ratio Vancomycin Trough 09/02/18 09/02/18 09/03/18 22:14 23:00 02:12 WBC RBC Hgb Hct MCV MCH MCHC RDW Plt Count MPV Neut % (Auto) Lymph % (Auto) Madison % (Auto) Eos % (Auto) Baso % (Auto) Absolute Neuts (auto) Absolute Lymphs (auto) Absolute Monos (auto) Absolute Eos (auto) Absolute Basos (auto) Absolute Nucleated RBC Nucleated RBC % Patient Temperature ABG pH ABG pH (Temp Correct) ABG pCO2 ABG pCO2 (Temp Corrct ABG pO2 ABG pO2 (Temp Correct ABG HCO3 ABG O2 Saturation ABG Base Excess VBG pH 7.31 L VBG pCO2 49 VBG pO2 40.0 VBG HCO3 22.5 L VBG O2 Saturation 68.1 L VBG Base Excess -2.1 L Respiration Rate Ventilator Type Vent Mode FiO2 Inspiratory Time PEEP Pressure Support Pressure Control EPAP IPAP BiPAP Sodium Potassium Chloride Carbon Dioxide Anion Gap BUN Creatinine Est GFR ( Amer) Est GFR (Non-Af Amer) BUN/Creatinine Ratio Glucose POC Glucose (mg/dL) 228 H 117 H Lactic Acid Calcium Phosphorus Magnesium Total Bilirubin Direct Bilirubin Indirect Bilirubin AST ALT Alkaline Phosphatase Total Creatine Kinase Total Protein Albumin Globulin Albumin/Globulin Ratio Vancomycin Trough 09/03/18 09/03/18 09/03/18 06:00 06:00 06:05 WBC 17.3 H RBC 3.30 L Hgb 9.1 L Hct 28 L MCV 85 MCH 28 MCHC 33 RDW 16 H Plt Count 262 MPV 7.6 Neut % (Auto) Lymph % (Auto) Madison % (Auto) Eos % (Auto) Baso % (Auto) Absolute Neuts (auto) Absolute Lymphs (auto) Absolute Monos (auto) Absolute Eos (auto) Absolute Basos (auto) Absolute Nucleated RBC Nucleated RBC % Patient Temperature ABG pH ABG pH (Temp Correct) ABG pCO2 ABG pCO2 (Temp Corrct ABG pO2 ABG pO2 (Temp Correct ABG HCO3 ABG O2 Saturation ABG Base Excess VBG pH VBG pCO2 VBG pO2 VBG HCO3 VBG O2 Saturation VBG Base Excess Respiration Rate Ventilator Type Vent Mode FiO2 Inspiratory Time PEEP Pressure Support Pressure Control EPAP IPAP BiPAP Sodium 140 Potassium 4.2 Chloride 111 Carbon Dioxide 24 Anion Gap 5 BUN 22 Creatinine 0.64 Est GFR ( Amer) 110.1 Est GFR (Non-Af Amer) 91.0 BUN/Creatinine Ratio 34.4 H Glucose 180 H POC Glucose (mg/dL) 194 H Lactic Acid Calcium 7.6 L Phosphorus 1.4 L Magnesium 2.2 Total Bilirubin 0.40 Direct Bilirubin 0.20 H Indirect Bilirubin 0.2 L AST 61 H ALT 26 Alkaline Phosphatase 128 H Total Creatine Kinase Total Protein 4.1 L Albumin 2.3 L Globulin 1.8 L Albumin/Globulin Ratio 1.3 Vancomycin Trough Assessment: POD#3 s/p exlap with colon resection-perforation with sepsis and peritonitis POD#1 s/p washout abdomen Open abdomen with wound vac Sepsis Plan: Continue present ICU care-IV abx, ventilator management Tentative back to OR later today for colostomy creation and possible abdominal wall closure Discussed with Dr. Crawford-concern with ECHO results this morning, follow and coordinate care.
[2018-09-03] MEDS: Midazolam IV for DRIP* 100 MG in NS 0.9% 100 ML* 80 ML IV SCH (10:56)
[2018-09-03] MEDS: Pantoprazole IV* 40 MG IV SCH (10:56)
[2018-09-03] MEDS: Norepinephrine 16MCG/ML IVPRE* 4,000 MCG/250 ML BAG IV SCH ×2 (12:02→20:45)
[2018-09-03] MEDS ORDERED: Acetylcysteine INHALATION SOL* 200 MG/ML NEB.SOLN 10 ML ONE (13:06)
[2018-09-03] MEDS ORDERED: Acetylcysteine INH SOL* 200 MG/ML 4 ML VIAL (for Resp Thpy) INH ONE (13:08)
--- NOTE | 2018-09-03 13:58 | PN ---
Date of Service: 09/03/18 Critical Care Services: Remains on ventilator and is pressor-dependent. Episode of hypoxemia earlier today with CXR showing left lower lobe atelectasis so bronchoscopy was performed at bedside with removal of tenacious secretions. Vital Signs: Temp Pulse Resp BP SpO2 FiO2 99.1 F 64 18 102/61 88 55 Physical Exam: Gen:Unresponsive (on IV sedation) Lungs:Decreased BS left base Abdomen:Wound-Vac on surgical wournd along left side. Extremities:1+ edema Fluid Balance (Past 24 Hours): 09/01/18 09/02/18 09/03/18 06:59 06:59 06:59 Intake Total 3405 8749 6505.4 Output Total 1155 1405 1058 Balance 2250 7344 5447.4 Weight 148 lb 9.465 oz 179 lb 0.246 oz 181 lb 7.047 oz Intake: IV Fluids 2354 5066 4792.2 Albumin 510 D5W 1211 LR 3098 1932 NS 2354 703 372.2 Sodium Bicarbonate 1265 767 IVPB 97 1369 393 ABX - VANCOMYCIN 899 35 ABX - ZOSYN 97 340 358 Sodium Bicarbonate 130 Medicated IV 954 2314 1115.2 CC - Amiodarone 896 398 CC - Norepinephrine/ 954 490 Levophed CC - Phenylephrine/ 117 196 Neosynephrine CC - Vasopressin/ 207 143.2 Pitressin Calcium 420 GEN - Magnesium 73 50 KCl 111 328 IV Narcotic Infusion 205 Fentanyl 55 Versed 150 Oral 0 Output: NG Tube Drainage Amount 350 200 Wound Vac 200 425 490 Urine 0 Frost 255 780 568 Liquid Stool 300 Estimated Blood Loss 50 Other: Estimated Void Small Date of Last Bowel T Movement # Bowel Movements 1 Estimated Stool Amount Medium # Voids 1 NOTE: IS 15 LITERS POSITIVE OVER LAST 72 HRS. Labs: 09/02/18 09/02/18 20:00 22:14 WBC RBC Hgb Hct MCV MCH MCHC RDW Plt Count MPV VBG pH VBG pCO2 VBG pO2 VBG HCO3 VBG O2 Saturation VBG Base Excess Sodium 141 Potassium 4.3 Chloride 113 H Carbon Dioxide 25 Anion Gap 3 BUN 21 Creatinine 0.59 Glucose 228 POC Glucose (mg/dL) 228 H Calcium 7.6 L Phosphorus Magnesium Total Bilirubin Direct Bilirubin Indirect Bilirubin AST ALT Alkaline Phosphatase Total Protein Albumin Globulin Albumin/Globulin Ratio 09/02/18 09/03/18 09/03/18 23:00 02:12 06:00 WBC RBC Hgb Hct MCV MCH MCHC RDW Plt Count MPV VBG pH 7.31 L VBG pCO2 49 VBG pO2 40.0 VBG HCO3 22.5 L VBG O2 Saturation 68.1 L VBG Base Excess -2.1 L Sodium 140 Potassium 4.2 Chloride 111 Carbon Dioxide 24 Anion Gap 5 BUN 22 Creatinine 0.64 Glucose 180 POC Glucose (mg/dL) 117 H Calcium 7.6 L Phosphorus 1.4 Magnesium 2.2 Total Bilirubin 0.40 Direct Bilirubin 0.20 H Indirect Bilirubin 0.2 L AST 61 H ALT 26 Alkaline Phosphatase 128 H Total Protein 4.1 L Albumin 2.3 09/03/18 09/03/18 09/03/18 06:00 06:05 10:25 WBC 17.3 H Hgb 9.1 L Hct 28 L MCV 85 MCH 28 MCHC 33 RDW 16 H Plt Count 262 VBG pH VBG pCO2 VBG pO2 VBG HCO3 VBG O2 Saturation VBG Base Excess Sodium Potassium Chloride Carbon Dioxide Anion Gap BUN Creatinine Est GFR ( Amer) Est GFR (Non-Af Amer) BUN/Creatinine Ratio Glucose POC Glucose (mg/dL) 194 H 171 H Calcium Phosphorus Magnesium Total Bilirubin Direct Bilirubin Indirect Bilirubin AST ALT Alkaline Phosphatase Total Protein Albumin Globulin Albumin/Globulin Ratio Studies: Venous ultrasound both legs - no evidence of DVT CXR: as described Nutrition: NPO Impression: Prognosis very guarded at this time. Major problems include hypotension with pressor-dependence, severe hypoxemia (presumably due to LLL atelectasis), and probable ongoping sepsis despite broad-spectrum antibiotic coverage. Cardiac ECO shows markedly dilated right heart (? pulmonary embolism) but ECHO of leg veins shows no DVT (patient too ill for transport to get CT angiogram). Plan: 1. I will add empiric coverage for Christiana (with anidulafungin) 2. Repeat CXR to evaluate LLL atelectasis post-bronchoscopy. 3. Switch pressor from neosynephrine to norepinephrine. 4. Surgery service to decode about return to OR today. Critical Care Time: 60 minutes (not including time for bronchoscopy).
[2018-09-03] MEDS ORDERED: Acetylcysteine INHALATION SOL* 200 MG/ML NEB.SOLN 10 ML SCH (14:00)
[2018-09-03] MEDS ORDERED: Anidulafungin* 200 MG in NS 0.9% 250 ML* 200 ML IVPB ONE (14:00)
[2018-09-03] MEDS ORDERED: D5W 1000 ML BAG* 1,000 ML IV SCH (14:18)
[2018-09-03] MEDS ORDERED: Rocuronium* 10 MG/ML VIAL ONE (15:28)
[2018-09-03] MEDS ORDERED: KETAMINE HCL* 50 MG/ML 10 ML VIAL ONE (15:28)
[2018-09-03] MEDS ORDERED: fentaNYL* 50 MCG/ML 5 ML VIAL (250 MCG VIAL) ONE (15:54)
[2018-09-03] MEDS ORDERED: Midazolam* 1 MG/ML 5 ML VIAL (5 MG) ONE (15:54)
[2018-09-03] MEDS ORDERED: Phenylephrine 10 MG/ML VIAL* 1 ML VIAL ONE (16:08)
--- NOTE | 2018-09-03 18:35 | BRIEFOPN ---
Brief Operative Note - Surgery Procedures: OPERATIVE NOTE Pre-Operative Diagnosis:Sepsis, peritonitis Post-Operative Diagnosis:Same Procedure:Exploratory laparotomy, partial colon resection, end transverse colostomy, wound vac placement Surgeon: Dariel Sanchez MD Wardrobe Supervisor:KRISH Jules Anesthesia: Local with MAC General with Dr. Ashley IVF:1800 cc crystalloid EBL:min Specimen:portion of descending colon Drain: none Wound Class:4 TO PACU
--- NOTE | 2018-09-03 19:50 | PRO ---
DATE OF PROCEDURE: 09/03/18 - ROOM #ICU-07 PROCEDURE: Bronchoscopy. INDICATION: The patient is a 73-year-old white female who has been in the hospital with a perforated colon secondary to diverticulitis and has been intubated and on a ventilator. Today, she developed acute O2 desaturation and a chest x-ray that showed left lower lower lobe atelectasis, so a bronchoscopy was considered to be indicated. DESCRIPTION OF PROCEDURE: The patient was sedated on Versed and fentany drips. A flexible fiberoptic bronchoscope was inserted into a size 7.5 endotracheal tube and the scope was directed into the left lower lobe. A string of tenacious sputum was noted and was aspirated with difficulty through the bronchoscope. Mucomyst was installed into the left lower lobe to aid in future clearance of secretions. The airways up to the 4th order were clear at the end of the procedure. The patient tolerated the procedure well and there were no apparent complications. FINAL DIAGNOSIS: Atelectasis to left lower lobe due to retained secretions. [id number]/[facility] #: [id number] JONNIE
[2018-09-03] MEDS ORDERED: Vasopressin* 100 UNITS in D5W 250 ML BAG* 245 ML IVPB SCH (22:00)
--- NOTE | 2018-09-03 22:47 | OP ---
DATE OF OPERATION: 09/03/18 - ROOM #ICU-07 DATE OF : 45 SURGEON: Demetrius Sanchez MD. TIRE VULCANIZER: KRISH Santos. ANESTHESIOLOGIST: Dr. Ashley. ANESTHESIA: General. PRE-OP DIAGNOSIS: Recent sepsis and peritonitis status post exploratory laparotomy. POST-OP DIAGNOSIS: Recent sepsis and peritonitis status post exploratory laparotomy. OPERATIVE PROCEDURES: Exploratory laparotomy, partial colon resection with a distal transverse end colostomy, placement of a XenMatrix biologic mesh used to bridge the abdominal wall in closure, and placement of wound VAC. ESTIMATED BLOOD LOSS: Minimal. IV FLUIDS: 1800 cc crystalloid. URINE OUTPUT: Not recorded. SPECIMENS: Portions of proximal descending colon. FINDINGS: All colon and small-bowel were viable. The stomach and liver were normal. The gallbladder was unremarkable. The appendix was normal. The area of the previous descending and sigmoid colon resection was without abnormality. Small-bowel was unremarkable. BRIEF HISTORY: Ms. Darline Spencer is a 73-year-old woman who was admitted to the hospital last week, developed sudden profound sepsis with peritonitis, was taken to the operating room three days ago where she was noted to have a perforated sigmoid colon, probably most likely due to either stercoral colitis and/or diverticulitis with profound purulent peritonitis. She was taken back yesterday to the operating room for a washout and was much improved yesterday, and was also scheduled for laparotomy today for definitive colostomy formation. However, over the past 24 hours, she has required reinstitution of pressors for blood pressure maintenance as well as some hypoxia. She is being taken back to the operating room now to rule out any intraabdominal source of new sepsis. The procedure was discussed with her healthcare proxy, Cely Dumont, and the risks of it not limited to bleeding, infection, intraabdominal abscess formation , injury to peritoneal and retroperitoneal structures, abscess formation, further surgical intervention depending on clinical course, the planned colostomy and/or ileostomy as well as the risks of pulmonary failure, respiratory failure, acute renal failure, and were all discussed. PROCEDURE: Written informed consent was obtained and the belly was marked with indelible ink. She was taken to the operating room from the intensive care unit , intubated, and on multiple pressors. Appropriate monitoring devices were continued. The existing wound VAC was removed and the abdomen was prepped with Betadine. Time-out verification was completed. The Ioban visceral protector was then removed. Evaluation of the abdomen revealed no evidence of purulence or odor. There was some basically clear serous fluid in all 4 quadrants and the abdomen was thoroughly irrigated with warm saline. Once again, the liver appeared to be normal. All the entire colon was viable without evidence of any ischemic change or any evidence of perforation. Once again, the small-bowel was unremarkable as well as the rectal stump. With this in mind, attention was turned to the area of the previous resection. The remaining descending colon was approximately 6 to 8 cm and I proceeded to mobilize this towards the splenic flexure and thus, the splenic flexure was mobilized down using a LigaSure device. Plan at this point, seeing that the transverse colon and the cecum and right colon were viable; although slightly distended, was to bring out a distal transverse colostomy. I then divided the colon at the distal transverse colon and mobilized this further up by slicing some of the omental adhesions until I felt that this would come up through the left upper quadrant abdominal wall without tension or twisting. Next, a defect was made in the left upper anterior abdominal wall and the end transverse colon was brought up through without difficulty. It appeared to be very viable as well as under no tension. Next, the existing omentum was placed over the viscera. A 20 x 20 cm XenMatrix biological mesh was then cut in an oval shape and was sutured to the fascia circumferentially with interrupted #1 Vicryl suture to act as bridging coverage of the abdominal wall. The abdominal wall was quite edematous and tight and I would not have been able to close this primarily. The colostomy was then matured to the skin with interrupted 3-0 full-thickness Vicryl sutures and was viable, and, as mentioned above, under no tension or retraction. A wound VAC was then placed over the biologic mesh in the usual fashion and placed to 125 mmHg suction. A colostomy appliance was then placed in the usual fashion. The patient tolerated the procedure well and was taken back to the intensive care unit in stable, but critical condition. [id number]/[facility] #: [id number] JONNIE
[2018-09-03] MEDS: Acetylcysteine INHALATION SOL* 200 MG/ML NEB.SOLN 10 ML SCH (23:50)
[2018-09-03] MEDS: Albuterol 2.5 MG/3 ML NEB.SOL* (0.083%) INH PRN (23:51)
[2018-09-04] MEDS: Chlorhexidine MOUTHWASH 0.12%* 15 ML UDC TOPICAL SCH ×6 (00:07→20:45)
[2018-09-04] MEDS: fentaNYL INFUSION 50 MCG/ML* 2,500 MCG/50 ML BAG IV SCH ×2 (00:12→15:15)
[2018-09-04] MEDS: ZOSYN 3.375 GM Q8H per EXTENDED INFUSION IVPB SCH ×6 (00:13→17:29)
[2018-09-04] MEDS: Midazolam IV for DRIP* 100 MG in NS 0.9% 100 ML* 80 ML IV SCH ×2 (00:22→06:42)
[2018-09-04] MEDS: Insulin LISPRO* 1 UNITS UNIT SUBCUT SCH ×6 (02:12→21:31)
[2018-09-04] MEDS: Norepinephrine 16MCG/ML IVPRE* 4,000 MCG/250 ML BAG IV SCH ×2 (04:02→12:45)
[2018-09-04 05:32] LABS: Hematocrit 31 % (35-47); Hemoglobin 9.8 g/dL (12.0-16.0); Mean Corpuscular HGB Conc 32 g/dL (31-36); Mean Corpuscular Hemoglobin 27 pg (27-31); Mean Corpuscular Volume 85 fL (80-97); Mean Platelet Volume 7.6 fL (7.4-10.4); Platelet Count 216 10^3/uL (150-450); Red Blood Count 3.61 10^6 /uL (3.70-4.87); Red Cell Distribution Width 16 % (10.5-15); White Blood Count 24.5 10^3/uL (3.5-10.8)
[2018-09-04 05:50] LABS: BUN/Creatinine Ratio 35.1 (8-20); Calcium 7.1 mg/dL (8.6-10.3); EGFR African American 88.9 (>60); EGFR Non-African American 73.5 (>60); Phosphorus 1.6 mg/dL (2.5-5.0); Potassium 4.1 mmol/L (3.5-5.0)
[2018-09-04] MEDS: Heparin VIAL(*) 5000 UNITS/ML VIAL (FIVE THOUSAND) SUBCUT SCH ×3 (06:00→21:31)
[2018-09-04] MEDS: methylPREDNISolone SOD 40 MG* 1 ML VIAL IV SCH (08:20)
[2018-09-04] MEDS: PTO:Budesonide/Formote 160/4.5(NF) MDI INH SCH ×2 (08:28→19:12)
--- NOTE | 2018-09-04 08:43 | PN ---
Progress Note - Progress Note Date of Service: 09/04/18 SOAP: Subjective: Stable overnight-remains on Levophed Sedated on ventilator Objective: Temp Pulse Resp BP Pulse Ox 97.5 F 67 18 87/57 97 09/04/18 06:01 09/04/18 06:01 09/04/18 06:00 09/04/18 06:00 09/04/18 06:01 Intake & Output 09/02/18 09/03/18 09/04/18 09/05/18 06:59 06:59 06:59 06:59 Intake Total 8749 6505.4 2786 Output Total 1405 1058 1492 Balance 7344 5447.4 1294 Weight 179 lb 0.246 oz 181 lb 7.047 oz 182 lb 1.629 oz Intake: IV Fluids 5066 4792.2 1232 ABX - ZOSYN 137 Albumin 510 D5W 1211 760 LR 3098 1932 NS 703 372.2 335 Sodium Bicarbonate 1265 767 IVPB 1369 393 392 ABX - VANCOMYCIN 899 35 ABX - ZOSYN 340 358 112 Anidulafungin 280 Sodium Bicarbonate 130 Medicated IV 2314 1115.2 1132 CC - Amiodarone 896 398 239 CC - Norepinephrine/ 490 593 Levophed CC - Phenylephrine/ 117 196 219 Neosynephrine CC - Vasopressin/ 207 143.2 81 Pitressin Calcium 420 GEN - Magnesium 73 50 KCl 111 328 IV Narcotic Infusion 205 Fentanyl 55 Versed 150 NG Tube Irrigate Amount 30 Output: NG Tube Drainage Amount 200 150 Wound Vac 479 973 8011 Frost 780 568 342 PEX: Sedated Abd is distended and soft. Ostomy LUQ pink and edematous without drainage Midline dressing and wound VAC in place Laboratory Results - last 24 hr 09/03/18 09/03/18 09/03/18 10:25 14:26 19:30 WBC RBC Hgb Hct MCV MCH MCHC RDW Plt Count MPV Sodium Potassium Chloride Carbon Dioxide Anion Gap BUN Creatinine Est GFR ( Amer) Est GFR (Non-Af Amer) BUN/Creatinine Ratio Glucose POC Glucose (mg/dL) 171 H 202 H Calcium Phosphorus Magnesium Cortisol 11.86 09/03/18 09/03/18 09/04/18 19:35 22:05 02:07 WBC RBC Hgb Hct MCV MCH MCHC RDW Plt Count MPV Sodium Potassium Chloride Carbon Dioxide Anion Gap BUN Creatinine Est GFR ( Amer) Est GFR (Non-Af Amer) BUN/Creatinine Ratio Glucose POC Glucose (mg/dL) 178 H 173 H 142 H Calcium Phosphorus Magnesium Cortisol 09/04/18 09/04/18 05:23 05:23 WBC 24.5 H RBC 3.61 L Hgb 9.8 L Hct 31 L MCV 85 MCH 27 MCHC 32 RDW 16 H Plt Count 216 MPV 7.6 Sodium 139 Potassium 4.1 Chloride 112 H Carbon Dioxide 23 Anion Gap 4 BUN 27 H Creatinine 0.77 Est GFR ( Amer) 88.9 Est GFR (Non-Af Amer) 73.5 BUN/Creatinine Ratio 35.1 H Glucose 141 H POC Glucose (mg/dL) Calcium 7.1 L Phosphorus 1.6 L Magnesium 2.0 Cortisol CXR reviewed Assessment: POD# 4/2/ s/p exlap with sigmoid colectomy for perforation/peritonitis, colostomy with biologic mesh placement (fascia bridged) and wound vac application Sepsis Ventilator dependence Plan: IV abx, anti-fungals Ventilator Start tube feeds Wound VAC Discussed with her proxy Cely Dumont last night Discussed care with Dr. Crawford this morning.
[2018-09-04] MEDS: Pantoprazole IV* 40 MG IV SCH (10:14)
[2018-09-04] MEDS ORDERED: Furosemide IV* 10 MG/ML VIAL (40 MG) IV ONE ×2 (10:47→17:12)
[2018-09-04] MEDS: Anidulafungin* 100 MG in NS 0.9% 100 ML* 100 ML IVPB SCH (15:15)
--- NOTE | 2018-09-04 16:54 | PN ---
Date of Service: 09/04/18 Critical Care Services: Remains on ventilator and receiving IV sedation. Brought to OR yesterday, where she had a left-sided colectomy with a transverse colostomy. Has been on levophed for BP control (both before and after OR). Bronchoscopy yesterday for LLL atelectasis - followed by mucolytic Rx - CXR today shows improved aeration at left base. Vital Signs: Temp Pulse Resp BP SpO2 FiO2 97.7 F 65 18 104/59 97 80 Physical Exam: Gen:Unresponsive HEENT: Pupils midposition and reactive. No facial asymmetry Lungs: Scattered rhonchi. Doiminished BS at left base. Abdomen: Distended. Colostomy drainage minimal Extremities:1+ edema Fluid Balance (Past 24 Hours): 09/02/18 09/03/18 09/04/18 06:59 06:59 06:59 Intake Total 8749 6505.4 2786 Output Total 1405 1058 1492 Balance 7344 5447.4 1294 Weight 179 lb 181 lb 182 lb Intake: IV Fluids 5066 4792.2 1232 ABX - ZOSYN 137 Albumin 510 D5W 1211 760 LR 3098 1932 NS 703 372.2 335 Sodium Bicarbonate 1265 767 IVPB 1369 393 392 ABX - VANCOMYCIN 899 35 ABX - ZOSYN 340 358 112 Anidulafungin 280 Sodium Bicarbonate 130 Medicated IV 2314 1115.2 1132 CC - Amiodarone 896 398 239 CC - Norepinephrine/ 490 593 Levophed CC - Phenylephrine/ 117 196 219 Neosynephrine CC - Vasopressin/ 207 143.2 81 Pitressin Calcium 420 GEN - Magnesium 73 50 KCl 111 328 IV Narcotic Infusion 205 Fentanyl 55 Versed 150 Oral NG Tube Irrigate Amount 30 Output: NG Tube Drainage Amount 200 150 Wound Vac 674 803 4958 Frost 780 568 342 Liquid Stool Estimated Blood Loss Other: Estimated Void Date of Last Bowel Movement # Bowel Movements Estimated Stool Amount # Voids Labs: 09/04/18 09/04/18 09/04/18 02:07 05:23 05:23 WBC 24.5 H RBC 3.61 L Hgb 9.8 L Hct 31 L Plt Count 216 Sodium 139 Potassium 4.1 Chloride 112 H Carbon Dioxide 23 Anion Gap 4 BUN 27 H Creatinine 0.77 Glucose 141 H POC Glucose (mg/dL) 142 H Calcium 7.1 L Phosphorus 1.6 Magnesium 2.0 Studies: CXR: as mentioned Nutrition: Tube feedings at 10 cc/hr Impression: Despite improved aeration after bronchoscopy, patient continues to have high O2 demands. Plan: 1. Try diuresis today (is 15 liters positive over past 3 days) 2. Lower FIO2 if possible 3. Continue mucolytic Rx for another 24 hours. Critical Care Time: 40 minutes
[2018-09-04] MEDS: Acetylcysteine INHALATION SOL* 200 MG/ML NEB.SOLN 10 ML SCH (19:04)
[2018-09-04] MEDS: Albuterol 2.5 MG/3 ML NEB.SOL* (0.083%) INH PRN (19:04)
[2018-09-05] MEDS: Midazolam IV for DRIP* 100 MG in NS 0.9% 100 ML* 80 ML IV SCH ×2 (00:30→22:36)
[2018-09-05] MEDS: Chlorhexidine MOUTHWASH 0.12%* 15 ML UDC TOPICAL SCH ×6 (00:30→19:43)
[2018-09-05] MEDS: ZOSYN 3.375 GM Q8H per EXTENDED INFUSION IVPB SCH ×6 (00:42→16:18)
[2018-09-05] MEDS: Albuterol 2.5 MG/3 ML NEB.SOL* (0.083%) INH PRN (02:01)
[2018-09-05] MEDS: Acetylcysteine INHALATION SOL* 200 MG/ML NEB.SOLN 10 ML SCH ×3 (02:01→12:52)
[2018-09-05] MEDS: Insulin LISPRO* 1 UNITS UNIT SUBCUT SCH ×6 (02:07→21:40)
[2018-09-05] MEDS: Norepinephrine 16MCG/ML IVPRE* 4,000 MCG/250 ML BAG IV SCH (04:33)
[2018-09-05 05:48] LABS: Hematocrit 26 % (35-47); Hemoglobin 8.6 g/dL (12.0-16.0); Mean Corpuscular HGB Conc 33 g/dL (31-36); Mean Corpuscular Hemoglobin 27 pg (27-31); Mean Corpuscular Volume 83 fL (80-97); Mean Platelet Volume 7.6 fL (7.4-10.4); Platelet Count 184 10^3/uL (150-450); Red Blood Count 3.15 10^6 /uL (3.70-4.87); Red Cell Distribution Width 16 % (10.5-15); White Blood Count 24.3 10^3/uL (3.5-10.8)
[2018-09-05 06:11] LABS: BUN/Creatinine Ratio 35.5 (8-20); Calcium 6.9 mg/dL (8.6-10.3); EGFR African American 90.3 (>60); EGFR Non-African American 74.6 (>60); Magnesium 1.9 mg/dL (1.9-2.7); Phosphorus 2.2 mg/dL (2.5-5.0); Potassium 3.2 mmol/L (3.5-5.0)
[2018-09-05] MEDS: Heparin VIAL(*) 5000 UNITS/ML VIAL (FIVE THOUSAND) SUBCUT SCH ×3 (06:44→21:40)
[2018-09-05] MEDS: KCL 20 MEQ/100 ML IVPREMIX* 20 MEQ/100 ML BAG IV SCH ×3 (06:55→10:02)
[2018-09-05] MEDS: PTO:Budesonide/Formote 160/4.5(NF) MDI INH SCH ×2 (07:58→19:27)
[2018-09-05] MEDS: Famotidine IV* 10 MG/ML 2 ML (20 mg) IV SCH (08:39)
[2018-09-05] MEDS: methylPREDNISolone SOD 40 MG* 1 ML VIAL IV SCH (08:39)
--- NOTE | 2018-09-05 10:10 | PN ---
Progress Note - Progress Note Date of Service: 09/05/18 SOAP: Subjective: Sedated on ventilator Events of night reviewed, nursing notes reviewed Diuresed after lasix Objective: Temp Pulse Resp BP Pulse Ox 97.5 F 86 18 98/55 94 09/05/18 09:01 09/05/18 09:01 09/05/18 09:00 09/05/18 09:00 09/05/18 09:01 Intake & Output 09/03/18 09/04/18 09/05/18 09/06/18 06:59 06:59 06:59 06:59 Intake Total 6505.4 2786 1916 0 Output Total 1058 1492 4565 145 Balance 5447.4 1294 -5999 -145 Weight 181 lb 7.047 oz 182 lb 1.629 oz 178 lb 12.718 oz Intake: IV Fluids 4792.2 1232 842 ABX - ZOSYN 137 Albumin 510 D5W 1211 760 602 LR 1932 NS 372.2 335 240 Sodium Bicarbonate 767 IVPB 393 392 365 ABX - VANCOMYCIN 35 ABX - ZOSYN 358 112 218 Anidulafungin 280 147 Medicated IV 1115.2 1132 521 CC - Amiodarone 398 239 CC - Norepinephrine/ 593 521 Levophed CC - Phenylephrine/ 196 219 Neosynephrine CC - Vasopressin/ 143.2 81 Pitressin GEN - Magnesium 50 KCl 328 IV Narcotic Infusion 205 53 Fentanyl 55 53 Versed 150 Oral 0 0 Tube Feeding 135 NG Tube Irrigate Amount 30 0 0 Output: NG Tube Drainage Amount 150 0 0 Wound Vac 490 1000 0 0 Frost 871 374 5547 145 Liquid Stool 0 Colostomy 275 Estimated Blood Loss 0 0 Other: Estimated Void Small Date of Last Bowel T Movement # Bowel Movements 1 Estimated Stool Amount Medium # Voids 1 PEX: Comfortable Abd is soft and distended. No bowel sounds present. Ostomy is pink and very edematous, small amount of soft stool in bag Wound vac changed--biologic mesh in good position, no drainage, no odor Laboratory Results - last 24 hr 09/04/18 09/05/18 09/05/18 21:25 02:02 05:25 WBC RBC Hgb Hct MCV MCH MCHC RDW Plt Count MPV Sodium 144 Potassium 3.2 L Chloride 112 H Carbon Dioxide 26 Anion Gap 6 BUN 27 H Creatinine 0.76 Est GFR ( Amer) 90.3 Est GFR (Non-Af Amer) 74.6 BUN/Creatinine Ratio 35.5 H Glucose 162 H POC Glucose (mg/dL) 148 H 150 H Calcium 6.9 L Phosphorus 2.2 L Magnesium 1.9 09/05/18 09/05/18 05:25 09:51 WBC 24.3 H RBC 3.15 L Hgb 8.6 L Hct 26 L MCV 83 MCH 27 MCHC 33 RDW 16 H Plt Count 184 MPV 7.6 Sodium Potassium Chloride Carbon Dioxide Anion Gap BUN Creatinine Est GFR ( Amer) Est GFR (Non-Af Amer) BUN/Creatinine Ratio Glucose POC Glucose (mg/dL) 161 H Calcium Phosphorus Magnesium CXR reviewed Pathology 08/31 specimen reviewed-diverticular perforation Cultures noted Assessment: S/P exlap X 3 for perforated sigmoid diverticulum with peritonitis and sepsis Colostomy formation Fascia bridged with biologic mesh and wound vac placed Social work and manager case management notes reviewed-apparently there is another health care proxy with appropriate documentation. She has not visited patient and will attempt to contact her. Plan: Wound vac IV abx and anti-fungals Tube feeds Ventilator management Wean Levophed Ostomy care Care discussed with Dr. Crawford
[2018-09-05] MEDS ORDERED: Magnesium Sulfate 2 GM IV* 2 GM/50 ML BAG IVPB ONE (12:00)
--- NOTE | 2018-09-05 12:00 | PN ---
Date of Service: 09/05/18 Critical Care Services: Remains on ventilator, but O2 requirement has dropped after recruitment maneuvers. Vital Signs: Temp Pulse Resp BP SpO2 FiO2 97.9 F 77 18 101/56 94 50 Physical Exam: Gen:Unresponsive (on versed and fentanyl) HEENT:No facial asymmetry Lungs: Diminshed BS at left base. No wheezes or crackles. Abdomen: WoundVac applied to wound on anterior abdomen Extremities:1+ edema. No cyanosis. Fluid Balance (Past 24 Hours): 09/05/18 06:59 Intake Total 1916 Output Total 4565 Balance -2649 Weight 178 lb 12.718 oz Intake: IV Fluids 842 ABX - ZOSYN Albumin D5W 602 LR NS 240 Sodium Bicarbonate IVPB 365 ABX - VANCOMYCIN ABX - ZOSYN 218 Anidulafungin 147 Medicated IV 521 CC - Amiodarone CC - Norepinephrine/ 521 Levophed CC - Phenylephrine/ Neosynephrine CC - Vasopressin/ Pitressin GEN - Magnesium KCl IV Narcotic Infusion 53 Fentanyl 53 Versed Oral 0 Tube Feeding 135 NG Tube Irrigate Amount 0 Output: NG Tube Drainage Amount 0 Wound Vac 0 Frost 4290 Liquid Stool 0 Colostomy 275 Estimated Blood Loss 0 Other: Estimated Void Small Date of Last Bowel T Movement # Bowel Movements 1 Estimated Stool Amount Medium # Voids 1 Labs: 09/04/18 09/05/18 09/05/18 21:25 02:02 05:25 WBC RBC Hgb Hct MCV MCH MCHC RDW Plt Count MPV Sodium 144 Potassium 3.2 Chloride 112 Carbon Dioxide 26 Anion Gap 6 BUN 27 Creatinine 0.76 Glucose 162 POC Glucose (mg/dL) 148 H 150 H Calcium 6.9 L Phosphorus 2.2 Magnesium 1.9 09/05/18 09/05/18 05:25 09:51 WBC 24.3 H Hgb 8.6 L Hct 26 L MCV 83 Plt Count 184 MPV 7.6 Sodium Potassium Chloride Carbon Dioxide Anion Gap BUN Creatinine Est GFR ( Amer) Est GFR (Non-Af Amer) BUN/Creatinine Ratio Glucose POC Glucose (mg/dL) 161 H Calcium Phosphorus Magnesium Studies: None Nutrition: Tube feeding at 10 cc/hr Impression: Gas exchange much improved after recruitment maneuvers. Also responding to diuretic Rx Plan: Stop sedation (as a sedation holiday) in anticipation of attempts to wean from the ventilator. Also slowly advance feedings. Critical Care Time: 35 minutes
[2018-09-05] MEDS ORDERED: Furosemide IV* 10 MG/ML VIAL (40 MG) IV ONE (12:02)
[2018-09-05] MEDS: Anidulafungin* 100 MG in NS 0.9% 100 ML* 100 ML IVPB SCH (15:40)
[2018-09-05 18:44] LABS: BUN/Creatinine Ratio 38.5 (8-20); EGFR African American 108.1 (>60); EGFR Non-African American 89.3 (>60); Potassium 3.3 mmol/L (3.5-5.0)
[2018-09-06] MEDS: Chlorhexidine MOUTHWASH 0.12%* 15 ML UDC TOPICAL SCH ×7 (00:26→23:50)
[2018-09-06] MEDS: ZOSYN 3.375 GM Q8H per EXTENDED INFUSION IVPB SCH ×6 (00:27→18:01)
[2018-09-06] MEDS: Insulin LISPRO* 1 UNITS UNIT SUBCUT SCH ×6 (02:27→23:50)
[2018-09-06 05:15] LABS: Hematocrit 27 % (35-47); Hemoglobin 8.9 g/dL (12.0-16.0); Mean Corpuscular HGB Conc 33 g/dL (31-36); Mean Corpuscular Hemoglobin 27 pg (27-31); Mean Corpuscular Volume 83 fL (80-97); Mean Platelet Volume 7.7 fL (7.4-10.4); Platelet Count 171 10^3/uL (150-450); Red Blood Count 3.28 10^6 /uL (3.70-4.87); Red Cell Distribution Width 15 % (10.5-15); White Blood Count 24.9 10^3/uL (3.5-10.8)
[2018-09-06 05:38] LABS: Calcium 7.3 mg/dL (8.6-10.3); EGFR African American 118.6 (>60); Potassium 3.5 mmol/L (3.5-5.0)
[2018-09-06] MEDS: Heparin VIAL(*) 5000 UNITS/ML VIAL (FIVE THOUSAND) SUBCUT SCH ×3 (06:29→21:48)
[2018-09-06] MEDS: PTO:Budesonide/Formote 160/4.5(NF) MDI INH SCH ×2 (07:31→19:37)
[2018-09-06] MEDS ORDERED: Furosemide IV* 10 MG/ML VIAL (40 MG) IV ONE ×2 (08:56→11:27)
[2018-09-06] MEDS: methylPREDNISolone SOD 40 MG* 1 ML VIAL IV SCH (09:02)
[2018-09-06] MEDS: Famotidine IV* 10 MG/ML 2 ML (20 mg) IV SCH (09:02)
[2018-09-06] MEDS: fentaNYL* 50 MCG/ML 2 ML VIAL (100 MCG VIAL) IV SLOW PU PRN ×2 (09:27→22:30)
[2018-09-06] MEDS: KCL 20 MEQ/100 ML IVPREMIX* 20 MEQ/100 ML BAG IV SCH ×2 (09:27→11:35)
--- NOTE | 2018-09-06 10:51 | PN ---
Progress Note - Progress Note Date of Service: 09/06/18 SOAP: Subjective: Overnight care reviewed She is off pressors and sedation and remains somnolent Receiving adequate analgesia Objective: Temp Pulse Resp BP Pulse Ox 98.4 F 95 25 165/88 93 09/06/18 10:00 09/06/18 10:00 09/06/18 10:00 09/06/18 10:00 09/06/18 10:00 Intake & Output 09/04/18 09/05/18 09/06/18 09/07/18 06:59 06:59 06:59 06:59 Intake Total 2786 1916 1216 Output Total 1492 4565 2707 375 Balance 1294 -2649 -1491 -375 Weight 182 lb 1.629 oz 178 lb 12.718 oz 179 lb 0.246 oz Intake: IV Fluids 1232 842 564 ABX - ZOSYN 137 166 Anidulafungin 0 D5W 760 602 119 NS 335 240 279 IVPB 392 365 345 ABX - ZOSYN 112 218 215 Anidulafungin 280 147 130 Medicated IV 1132 521 37 CC - Amiodarone 239 CC - Norepinephrine/ 593 521 37 Levophed CC - Phenylephrine/ 219 Neosynephrine CC - Vasopressin/ 81 Pitressin IV Narcotic Infusion 53 Fentanyl 53 Oral 0 0 Tube Feeding 135 220 Tube Feeding Flush Amount 50 NG Tube Irrigate Amount 30 0 0 Output: NG Tube Drainage Amount 150 0 0 Wound Vac 1000 0 0 Frost 342 4290 2707 375 Liquid Stool 0 Colostomy 275 Estimated Blood Loss 0 0 Other: Estimated Void Small Date of Last Bowel T Movement # Bowel Movements 1 Estimated Stool Amount Medium # Voids 1 PEX: Comfortable Lungs are clear Abd is soft and slightly distended. Ostomy pink and very edematous, little output Wound vac in place with minimal output on midline incision Laboratory Results - last 24 hr 09/05/18 09/05/18 09/05/18 14:44 18:08 18:10 WBC RBC Hgb Hct MCV MCH MCHC RDW Plt Count MPV Sodium 145 Potassium 3.3 L Chloride 110 Carbon Dioxide 27 Anion Gap 8 BUN 25 H Creatinine 0.65 Est GFR ( Amer) 108.1 Est GFR (Non-Af Amer) 89.3 BUN/Creatinine Ratio 38.5 H Glucose 160 H POC Glucose (mg/dL) 165 H 161 H Calcium 7.0 L 09/05/18 09/06/18 09/06/18 21:36 02:27 05:03 WBC RBC Hgb Hct MCV MCH MCHC RDW Plt Count MPV Sodium 146 H Potassium 3.5 Chloride 111 Carbon Dioxide 29 Anion Gap 6 BUN 24 Creatinine 0.60 Est GFR ( Amer) 118.6 Est GFR (Non-Af Amer) 98.0 BUN/Creatinine Ratio 40.0 H Glucose 145 H POC Glucose (mg/dL) 148 H 130 H Calcium 7.3 L 09/06/18 05:03 WBC 24.9 H RBC 3.28 L Hgb 8.9 L Hct 27 L MCV 83 MCH 27 MCHC 33 RDW 15 Plt Count 171 MPV 7.7 Sodium Potassium Chloride Carbon Dioxide Anion Gap BUN Creatinine Est GFR ( Amer) Est GFR (Non-Af Amer) BUN/Creatinine Ratio Glucose POC Glucose (mg/dL) Calcium ASSESSMENT: S/P exlap X 3 for perforated sigmoid colon with peritonitis, colostomy with wound vac placement over bridging biologic mesh Sepsis-improving Ventilator dependence Plan: Wean ventilator Increase tube feeds Wound and ostomy care-change wound vac tomorrow IV abx I discussed care with correct primary health care proxy-Shannon Ruiz who says she is the patient's daughter and [place] patient was admitted. She is the primary HCP on file with the hospital (see SW and CM recent notes in chart). Procedures explained and care discussed and her questions were answered. Care discussed with Dr. Crawford
[2018-09-06] MEDS: Losartan TAB* 25 MG FEED TUBE SCH (12:26)
[2018-09-06] MEDS: Acetylcysteine INHALATION SOL* 200 MG/ML NEB.SOLN 10 ML SCH ×2 (12:48→19:36)
[2018-09-06] MEDS: Vasopressin* 100 UNITS in D5W 250 ML BAG* 245 ML IVPB SCH (12:48)
--- NOTE | 2018-09-06 14:02 | PN ---
Date of Service: 09/06/18 Critical Care Services: Continuous sedation has been discontinued, but patient remains unresponsive. Continues to diurese with IV furosemide. Vital Signs: Temp Pulse Resp BP SpO2 FiO2 98.6 F 89 26 153/84 95 50 Physical Exam: Gen:Unresponsive Lungs:Diminished BS left base Abdomen: BS present Extremities:1-2+ edema Fluid Balance (Past 24 Hours): 09/05/18 09/06/18 06:59 06:59 Intake Total 1916 1216 Output Total 4565 2707 Balance -2649 -1491 Weight 178 lb 179 lb Intake: IV Fluids 842 564 ABX - ZOSYN 166 Anidulafungin 0 D5W 602 119 NS 240 279 IVPB 365 345 ABX - ZOSYN 218 215 Anidulafungin 147 130 Medicated IV 521 37 CC - Amiodarone CC - Norepinephrine/ 521 37 Levophed CC - Phenylephrine/ Neosynephrine CC - Vasopressin/ Pitressin IV Narcotic Infusion 53 Fentanyl 53 Oral 0 0 Tube Feeding 135 220 Tube Feeding Flush Amount 50 NG Tube Irrigate Amount 0 0 Output: NG Tube Drainage Amount 0 0 Wound Vac 0 0 Frost 4290 2707 Liquid Stool 0 Colostomy 275 Estimated Blood Loss 0 0 Other: Estimated Void Small Date of Last Bowel T Movement # Bowel Movements 1 Estimated Stool Amount Medium # Voids 1 Labs: 09/06/18 09/06/18 02:27 05:03 WBC RBC Hgb Hct MCV MCH MCHC RDW Plt Count MPV Sodium 146 H Potassium 3.5 Chloride 111 Carbon Dioxide 29 Anion Gap 6 BUN 24 Creatinine 0.60 Glucose 145 H POC Glucose (mg/dL) 130 H Calcium 7.3 L 09/06/18 09/06/18 05:03 11:31 WBC 24.9 H RBC 3.28 L Hgb 8.9 L Hct 27 L MCV 83 MCH 27 MCHC 33 RDW 15 Plt Count 171 Sodium Potassium Chloride Carbon Dioxide Anion Gap BUN Creatinine Est GFR ( Amer) Est GFR (Non-Af Amer) BUN/Creatinine Ratio Glucose POC Glucose (mg/dL) 145 H Calcium Studies: None today Nutrition: Tube feedings - advanced to 20 cc/hr Impression: Prolonged effects of sedative drugs. No signs active sepsis despite persistent leukocytosis. Plan: Continue aggressive diuresis and wean from ventilator when awakens. Will also advance tube feedings to full support (50 cc/hr) Critical Care Time: 45 minutes
[2018-09-06] MEDS: Anidulafungin* 100 MG in NS 0.9% 100 ML* 100 ML IVPB SCH (15:04)
[2018-09-06] MEDS ORDERED: Acetaminophen TAB* 325 MG PRN (23:47)
[2018-09-07] MEDS ORDERED: Acetaminophen ADULT LIQ* 650 MG/20.3 ML UDC NG TUBE PRN (00:01)
[2018-09-07] MEDS: ZOSYN 3.375 GM Q8H per EXTENDED INFUSION IVPB SCH ×6 (01:17→16:49)
[2018-09-07] MEDS: Acetaminophen ADULT LIQ* 650 MG/20.3 ML UDC G TUBE PRN ×2 (03:09→14:02)
[2018-09-07] MEDS: Chlorhexidine MOUTHWASH 0.12%* 15 ML UDC TOPICAL SCH ×6 (05:23→23:34)
[2018-09-07 06:05] LABS: Hematocrit 30 % (35-47); Hemoglobin 9.9 g/dL (12.0-16.0); Mean Corpuscular HGB Conc 33 g/dL (31-36); Mean Corpuscular Hemoglobin 28 pg (27-31); Mean Corpuscular Volume 84 fL (80-97); Platelet Count 203 10^3/uL (150-450); Red Cell Distribution Width 15 % (10.5-15); White Blood Count 28.7 10^3/uL (3.5-10.8)
[2018-09-07] MEDS: Heparin VIAL(*) 5000 UNITS/ML VIAL (FIVE THOUSAND) SUBCUT SCH ×3 (06:05→20:12)
[2018-09-07] MEDS: Insulin LISPRO* 1 UNITS UNIT SUBCUT SCH ×4 (06:06→23:34)
[2018-09-07 06:22] LABS: BUN/Creatinine Ratio 39.7 (8-20); Calcium 7.3 mg/dL (8.6-10.3); EGFR African American 123.3 (>60); EGFR Non-African American 101.9 (>60); Potassium 3.6 mmol/L (3.5-5.0)
[2018-09-07] MEDS: fentaNYL* 50 MCG/ML 2 ML VIAL (100 MCG VIAL) IV SLOW PU PRN ×3 (07:06→22:04)
[2018-09-07] MEDS: PTO:Budesonide/Formote 160/4.5(NF) MDI INH SCH (07:27)
[2018-09-07] MEDS: Famotidine IV* 10 MG/ML 2 ML (20 mg) IV SCH (08:11)
[2018-09-07] MEDS: Losartan TAB* 25 MG FEED TUBE SCH (08:11)
--- NOTE | 2018-09-07 13:54 | PN ---
Progress Note - Progress Note Date of Service: 09/07/18 SOAP: Subjective: Pt seen and examined. Patient remains intubated, and non-responsive. Sedation is off. Patient was seen with critical care attending. Patient has been diuresed over the course of last two days Objective: Temp Pulse Resp BP Pulse Ox 99.1 F 95 26 140/85 93 09/07/18 13:00 09/07/18 13:00 09/07/18 11:00 09/07/18 13:00 09/07/18 13:00 Trickle tube feeds via OG tube Patient minimally grimaces Abdomen: Open wound exposed. Biologic mesh appreciated, sutured to fascia laterally; no bowel visualized. No granulation tissue. Ischemic-appearing fat on the left side, healthy-appearing on the right. Ostomy is pink, edematous and functioning with positive gas and stool. Negative pressure wound therapy treatment was changed today. Labs noted. White blood cell count up Assessment: POD 4, formation of colostomy and placement of biologic mesh to open abdomen; non-responsive, ostomy functioning, but poor wound healing; Plan: abx increase tube feeds plan per [facility] wound care with vac dressing to be changed monday or Monday
--- NOTE | 2018-09-07 15:56 | PN ---
Date of Service: 09/07/18 Critical Care Services: Patient is more responsive today but stillnot awake spontaneously. Also shows minimal movement of limbs. Has diuresed 5 liters over past 24 hrs!! Vital Signs: Temp Pulse Resp BP SpO2 FiO2 99.1 F 99 26 140/78 95 60 Physical Exam: Gen:Opens eyes to command but does not localize HEENT:Pupils midposition and reactive Lungs: Occasional rhonchi Abdomen: Colostomy drainage active Extremities:2+ edema. Fluid Balance (Past 24 Hours): 09/06/18 09/07/18 06:59 06:59 Intake Total 1216 1350.8 Output Total 2707 6699 Balance -1491 -5348.2 Weight 179 lb 0.246 oz 157 lb 10.088 oz Intake: IV Fluids 564 382.8 ABX - ZOSYN 166 56 Anidulafungin 0 101 D5W 119 NS 279 225.8 IVPB 345 471 ABX - ZOSYN 215 327 Anidulafungin 130 144 Medicated IV 37 196 CC - Norepinephrine/ 37 Levophed KCl 196 IV Narcotic Infusion Fentanyl Oral 0 Tube Feeding 220 301 Tube Feeding Flush Amount 50 NG Tube Irrigate Amount 0 Output: NG Tube Drainage Amount 0 Wound Vac 0 Frost 8726 9699 Liquid Stool Colostomy 300 Estimated Blood Loss 0 Other: Estimated Void Date of Last Bowel 09/06/2018 Movement # Bowel Movements Estimated Stool Amount # Voids Labs: 09/07/18 09/07/18 09/07/18 06:00 06:00 14:23 WBC 28.7 H RBC 3.60 L Hgb 9.9 L Hct 30 L MCV 84 MCH 28 MCHC 33 RDW 15 Plt Count 203 Sodium 143 Potassium 3.6 Chloride 105 Carbon Dioxide 31 Anion Gap 7 BUN 23 Creatinine 0.58 Glucose 162 H POC Glucose (mg/dL) 137 H Calcium 7.3 L Studies: CXR: Improved aeration when compared too prior films Nutrition: Tube feedings increased to 50 cc/hr Impression: Awakening, but slowly. Minimal movement of limbs is concerning (? is this a sign of critical illness neuromyopathy?), as is the persistent leukocytosis Plan: Continue general supportive care, and minimize use of sedating drugs (i.e., opiates for pain). Will begin weaning when patient is more awake. Critical Care Time: 45 minutes
[2018-09-07] MEDS: Anidulafungin* 100 MG in NS 0.9% 100 ML* 100 ML IVPB SCH (16:39)
[2018-09-08] MEDS: fentaNYL* 50 MCG/ML 2 ML VIAL (100 MCG VIAL) IV SLOW PU PRN ×5 (02:23→19:14)
[2018-09-08] MEDS: ZOSYN 3.375 GM Q8H per EXTENDED INFUSION IVPB SCH ×6 (02:47→17:08)
[2018-09-08] MEDS: Chlorhexidine MOUTHWASH 0.12%* 15 ML UDC TOPICAL SCH ×5 (05:13→19:14)
[2018-09-08] MEDS: Heparin VIAL(*) 5000 UNITS/ML VIAL (FIVE THOUSAND) SUBCUT SCH ×3 (05:13→21:21)
[2018-09-08] MEDS: Insulin LISPRO* 1 UNITS UNIT SUBCUT SCH ×2 (05:54→13:15)
[2018-09-08] MEDS: PTO:Budesonide/Formote 160/4.5(NF) MDI INH SCH ×3 (06:41→19:37)
--- NOTE | 2018-09-08 08:29 | PN ---
Progress Note - Progress Note Date of Service: 09/08/18 Note: S/P Laparotomy/colostomy/washout T99+, VS noted UO adeq Passing stool and flatus in bag Getting TF Sedated on vent Abd soft, Vac in place, holding seal Stoma slight congestion, good output Cont vent, abx, sedation, TF per rn staffing Cont Vac. Re-apply in 1-2 days
[2018-09-08] MEDS: Famotidine IV* 10 MG/ML 2 ML (20 mg) IV SCH (08:38)
[2018-09-08] MEDS: Losartan TAB* 25 MG FEED TUBE SCH (08:39)
[2018-09-08] MEDS: Anidulafungin* 100 MG in NS 0.9% 100 ML* 100 ML IVPB SCH (13:50)
--- NOTE | 2018-09-08 18:10 | PN ---
Date of Service: 09/08/18 Critical Care Services: More awake today and follows commands, but has minimal movement of limbs. Able to tolerate minimal ventilator support. No diuretic today. Vital Signs: Temp Pulse Resp BP SpO2 FiO2 100.2 F 97 30 137/71 92 40 Physical Exam: Gen:Eyes open and is responsive HEENT: +lid droop Lungs: Occasional rhonchi Abdomen: Colostomy drainange adequate Extremities: 1-2+ edema Neuro: Limbs unable to resist gravity Fluid Balance (Past 24 Hours): 09/06/18 09/07/18 09/08/18 06:59 06:59 06:59 Intake Total 1216 1350.8 1009 Output Total 2707 6699 2150 Balance -1491 -5348.2 -1141 Weight 179 lb 0.246 oz 157 lb 10.088 oz 168 lb 3.403 oz Intake: IV Fluids 564 382.8 152 ABX - ZOSYN 166 56 21 Anidulafungin 0 101 51 D5W 119 NS 279 225.8 80 IVPB 345 471 423 ABX - ZOSYN 215 327 283 Anidulafungin 130 144 140 Medicated IV 37 196 CC - Norepinephrine/ 37 Levophed KCl 196 Oral 0 Tube Feeding 220 301 434 Tube Feeding Flush Amount 50 NG Tube Irrigate Amount 0 Output: NG Tube Drainage Amount 0 Wound Vac 0 75 Frost 2702 1039 2024 Colostomy 300 50 Estimated Blood Loss 0 Other: Date of Last Bowel 09/06/2018 Movement Labs: 09/07/18 09/07/18 09/08/18 18:17 23:30 05:46 POC Glucose (mg/dL) 133 H 194 H 149 H 09/08/18 12:12 POC Glucose (mg/dL) 180 H Nutrition: Tube feedings at 50 cc/hr Impression: Awakening from sedation, and continues to diurese excess fluid. However, paucity of body movements is concerning - Could this be critical illness neuromyopathy? Plan: Continue to wean from the ventilator. I will send neurology consult for EMG and nerve conduction studies. Critical Care Time: 40 minutes
[2018-09-09] MEDS: Chlorhexidine MOUTHWASH 0.12%* 15 ML UDC TOPICAL SCH ×6 (00:14→20:39)
[2018-09-09] MEDS: ZOSYN 3.375 GM Q8H per EXTENDED INFUSION IVPB SCH ×6 (00:15→16:06)
[2018-09-09] MEDS: Heparin VIAL(*) 5000 UNITS/ML VIAL (FIVE THOUSAND) SUBCUT SCH ×3 (05:53→21:30)
[2018-09-09 06:07] LABS: Hematocrit 31 % (35-47); Hemoglobin 10.1 g/dL (12.0-16.0); Mean Corpuscular HGB Conc 33 g/dL (31-36); Mean Corpuscular Hemoglobin 28 pg (27-31); Mean Corpuscular Volume 85 fL (80-97); Mean Platelet Volume 8.1 fL (7.4-10.4); Platelet Count 196 10^3/uL (150-450); Red Blood Count 3.62 10^6 /uL (3.70-4.87); Red Cell Distribution Width 16 % (10.5-15); White Blood Count 30.1 10^3/uL (3.5-10.8)
[2018-09-09 06:24] LABS: BUN/Creatinine Ratio 38.6 (8-20); Calcium 7.3 mg/dL (8.6-10.3); EGFR African American 169.6 (>60); EGFR Non-African American 140.2 (>60); Potassium 3.7 mmol/L (3.5-5.0)
[2018-09-09] MEDS: Famotidine IV* 10 MG/ML 2 ML (20 mg) IV SCH (08:05)
[2018-09-09] MEDS: fentaNYL* 50 MCG/ML 2 ML VIAL (100 MCG VIAL) IV SLOW PU PRN ×6 (08:05→20:42)
[2018-09-09] MEDS: Losartan TAB* 25 MG FEED TUBE SCH (08:05)
[2018-09-09] MEDS: PTO:Budesonide/Formote 160/4.5(NF) MDI INH SCH ×2 (08:30→19:23)
--- NOTE | 2018-09-09 08:46 | PN ---
Progress Note - Progress Note Date of Service: 09/09/18 Note: Pt remains intubated. Per RN has spontaneous respirations but not moving proximal extremities. CCM suspects neuropathy and Neuro consult pending. Pt is tolerating TFs and ostomy is functioning well. Vital Signs Temp 99.7 F 09/09/18 06:00 Pulse 92 09/09/18 06:00 Resp 30 09/09/18 08:05 BP 137/77 09/09/18 06:00 Pulse Ox 92 09/09/18 06:00 Abd: VAC intact; ostomy pink with stool in bag. Intake & Output 09/08/18 09/09/18 09/09/18 18:59 06:59 18:59 Intake Total 207 461 Output Total 430 845 Balance -223 -384 Intake: IV Fluids 56 127 NS 56 127 IVPB 151 334 ABX - ZOSYN 151 200 Anidulafungin 134 Output: Frost 430 495 Colostomy 350 Laboratory Results - last 24 hr 09/08/18 09/09/18 09/09/18 12:12 06:00 06:00 WBC 30.1 H RBC 3.62 L Hgb 10.1 L Hct 31 L MCV 85 MCH 28 MCHC 33 RDW 16 H Plt Count 196 MPV 8.1 Sodium 141 Potassium 3.7 Chloride 106 Carbon Dioxide 30 Anion Gap 5 BUN 17 Creatinine 0.44 L Est GFR ( Amer) 169.6 Est GFR (Non-Af Amer) 140.2 BUN/Creatinine Ratio 38.6 H Glucose 181 H POC Glucose (mg/dL) 180 H Calcium 7.3 L A/P: S/P exlap X 3 for perforated sigmoid colon with peritonitis, colostomy with wound vac placement over bridging biologic mesh Cont VAC. Other per CCM.
--- NOTE | 2018-09-09 12:32 | PN ---
Date of Service: 09/09/18 Critical Care Services: Continues to be alert and aware. Wean attempts have not been successful, and she continues to have profound limb weakness. Vital Signs: Temp Pulse Resp BP SpO2 FiO2 98.2 F 85 22 106/61 93 40 Physical Exam: Gen:Eyes open and responds to verbal commands HEENT: +lid droop. No facial asymmetry Lungs: Coarse rhonchi Abdomen:Colostomy functional Extremities: Unable to lift limbs against gravity Fluid Balance (Past 24 Hours): 09/08/18 09/09/18 06:59 06:59 Intake Total 1009 668 Output Total 2150 1275 Balance -1141 -607 Weight 168 lb Intake: IV Fluids 152 183 ABX - ZOSYN 21 Anidulafungin 51 NS 80 183 IVPB 423 485 ABX - ZOSYN 283 351 Anidulafungin 140 134 Medicated IV KCl Tube Feeding 434 Output: Wound Vac 75 Frost 2024 925 Colostomy 50 350 Other: Date of Last Bowel Movement Labs: 09/08/18 09/09/18 09/09/18 12:12 06:00 06:00 WBC 30.1 H RBC 3.62 L Hgb 10.1 L Hct 31 L Plt Count 196 Sodium 141 Potassium 3.7 Chloride 106 Carbon Dioxide 30 Anion Gap 5 BUN 17 Creatinine 0.44 L Glucose 181 H POC Glucose (mg/dL) 180 H Calcium 7.3 L Studies: None today Nutrition: Tube feedings at 50 cc/hr Impression: 1. The profound limb weakness and inability to wean from the ventilator is consistent with a condition known as "critical illness neuromyopathy" 2. The progressive leukocytosis is concerning, although there is no evidence of infection. Plan: 1. Consult neurology for nerve conductions and EMGs 2. Consult ENT for tracheostomy 3. Advance tube feedings to 70 cc/hr (normal target) Critical Care Time: 55 MINUTES
[2018-09-09] MEDS: Anidulafungin* 100 MG in NS 0.9% 100 ML* 100 ML IVPB SCH (15:56)
[2018-09-10] MEDS: ZOSYN 3.375 GM Q8H per EXTENDED INFUSION IVPB SCH ×6 (00:13→16:14)
[2018-09-10] MEDS: fentaNYL* 50 MCG/ML 2 ML VIAL (100 MCG VIAL) IV SLOW PU PRN ×4 (00:13→15:25)
[2018-09-10] MEDS: Chlorhexidine MOUTHWASH 0.12%* 15 ML UDC TOPICAL SCH ×6 (00:13→22:08)
[2018-09-10 04:19] LABS: Hematocrit 29 % (35-47); Hemoglobin 9.3 g/dL (12.0-16.0); Mean Corpuscular HGB Conc 33 g/dL (31-36); Mean Corpuscular Hemoglobin 28 pg (27-31); Mean Corpuscular Volume 86 fL (80-97); Mean Platelet Volume 8.4 fL (7.4-10.4); Platelet Count 215 10^3/uL (150-450); Red Blood Count 3.33 10^6 /uL (3.70-4.87); Red Cell Distribution Width 16 % (10.5-15); White Blood Count 29.8 10^3/uL (3.5-10.8)
[2018-09-10 04:34] LABS: BUN/Creatinine Ratio 41.5 (8-20); Calcium 7.2 mg/dL (8.6-10.3); EGFR Non-African American 152.1 (>60); Potassium 3.6 mmol/L (3.5-5.0)
[2018-09-10 04:58] LABS: ABS Basophils 0.1 10^3/ul (0-0.2); ABS Eosinophils 0.1 10^3/ul (0-0.6); ABS Lymphocytes 0.8 10^3/ul (1.0-4.8); ABS Monocytes 2.1 10^3/ul (0-0.8); ABS Neutrophils 26.7 10^3/ul (1.5-7.7); ABS Nucleated RBC 0.1 10^3/ul; Eosinophil % 0.3 %; Lymphocyte % 2.7 %; Nucleated Red Blood Cells % 0.2
[2018-09-10] MEDS: Heparin VIAL(*) 5000 UNITS/ML VIAL (FIVE THOUSAND) SUBCUT SCH ×3 (05:29→22:08)
[2018-09-10] MEDS: PTO:Budesonide/Formote 160/4.5(NF) MDI INH SCH ×2 (07:17→19:21)
[2018-09-10] MEDS: Famotidine IV* 10 MG/ML 2 ML (20 mg) IV SCH (08:28)
[2018-09-10] MEDS: Losartan TAB* 25 MG FEED TUBE SCH (08:28)
[2018-09-10] MEDS ORDERED: Furosemide IV* 10 MG/ML VIAL (40 MG) IV ONE (10:32)
[2018-09-10] MEDS: Acetaminophen ADULT LIQ* 650 MG/20.3 ML UDC G TUBE PRN (10:46)
--- NOTE | 2018-09-10 10:59 | PN ---
Progress Note - Progress Note Date of Service: 09/10/18 SOAP: Subjective: Remains on vent, awake and follows commands Care discussed with nurse Tolerating tube feeds Objective: Temp Pulse Resp BP Pulse Ox 99.5 F 95 29 155/74 96 09/10/18 10:00 09/10/18 10:00 09/10/18 10:46 09/10/18 10:00 09/10/18 10:00 Intake & Output 09/08/18 09/09/18 09/10/18 09/11/18 06:59 06:59 06:59 06:59 Intake Total 9692 814 2628 30 Output Total 2150 1275 1595 320 Balance -1141 -607 -323 -290 Weight 168 lb 3.403 oz 169 lb 1.6 oz Intake: IV Fluids 152 183 270 ABX - ZOSYN 21 Anidulafungin 51 NS 80 183 270 IVPB 423 485 107 ABX - ZOSYN 283 351 107 Anidulafungin 140 134 Oral 0 Tube Feeding 434 895 Tube Feeding Flush Amount 30 NG Tube Irrigate Amount 0 Output: NG Tube Drainage Amount 0 Wound Vac 75 75 Frost 2024 925 770 245 Colostomy 50 350 825 Estimated Blood Loss 0 Other: Date of Last Bowel 09/10/18 09/10/18 Movement PEX: Appears comfortable on ventilator Abd is soft and distended but not firm. Wound vac changed-wound clean, mesh in good position, wound clean Ostomy pink and edematous with soft stool output Laboratory Results - last 24 hr 09/10/18 09/10/18 03:57 03:57 WBC 29.8 H RBC 3.33 L Hgb 9.3 L Hct 29 L MCV 86 MCH 28 MCHC 33 RDW 16 H Plt Count 215 MPV 8.4 Neut % (Auto) 89.7 Lymph % (Auto) 2.7 [place] % (Auto) 7.1 Eos % (Auto) 0.3 Baso % (Auto) 0.2 Absolute Neuts (auto) 26.7 H Absolute Lymphs (auto) 0.8 L Absolute Monos (auto) 2.1 H Absolute Eos (auto) 0.1 Absolute Basos (auto) 0.1 Absolute Nucleated RBC 0.1 Nucleated RBC % 0.2 Sodium 142 Potassium 3.6 Chloride 108 Carbon Dioxide 30 Anion Gap 4 BUN 17 Creatinine 0.41 L Est GFR ( Amer) 184.0 Est GFR (Non-Af Amer) 152.1 BUN/Creatinine Ratio 41.5 H Glucose 163 H Calcium 7.2 L Assessment: S/p exlap X 3 for perforated sigmoid colon diverticulitis Sepsis- Ventilator dependence Plan: Continue IV abx and anti-fungals Wean vent-may need trach Tube feeds at goal Discussed with hydro mechanic Wound vac changed today
[2018-09-10] MEDS ORDERED: Albumin Human 25%* 50 GM/200 ML BTL IV ONE ×2 (11:00→22:30)
[2018-09-10 11:09] LABS: Hematocrit 30 % (35-47); Hemoglobin 9.7 g/dL (12.0-16.0); Mean Corpuscular HGB Conc 32 g/dL (31-36); Mean Corpuscular Hemoglobin 28 pg (27-31); Mean Corpuscular Volume 86 fL (80-97); Mean Platelet Volume 8.5 fL (7.4-10.4); Platelet Count 238 10^3/uL (150-450); Red Blood Count 3.52 10^6 /uL (3.70-4.87); Red Cell Distribution Width 16 % (10.5-15); White Blood Count 32.4 10^3/uL (3.5-10.8)
[2018-09-10 11:24] LABS: BUN/Creatinine Ratio 44.7 (8-20); Calcium 7.2 mg/dL (8.6-10.3); EGFR African American 200.9 (>60); Magnesium 1.9 mg/dL (1.9-2.7); Potassium 3.7 mmol/L (3.5-5.0)
[2018-09-10 11:41] LABS: ABS Eosinophils 0.1 10^3/ul (0-0.6); ABS Lymphocytes 0.8 10^3/ul (1.0-4.8); ABS Monocytes 2.3 10^3/ul (0-0.8); ABS Neutrophils 29.2 10^3/ul (1.5-7.7); Eosinophil % 0.3 %; Lymphocyte % 2.4 %; Nucleated Red Blood Cells % 0.1
[2018-09-10 11:42] LABS: Polychromasia 1+
[2018-09-10] MEDS ORDERED: Dexmedetomidine* 1,000 MCG in NS 0.9% 250 ML* 240 ML IVPB SCH (13:00)
[2018-09-10] MEDS ORDERED: fentaNYL INFUSION 50 MCG/ML* 2,500 MCG/50 ML BAG IV SCH (13:00)
[2018-09-10] MEDS: Dexmedetomidine* 1,000 MCG in NS 0.9% 250 ML* 240 ML IVPB SCH (13:19)
[2018-09-10] MEDS: Anidulafungin* 100 MG in NS 0.9% 100 ML* 100 ML IVPB SCH (13:59)
--- NOTE | 2018-09-10 14:08 | PN ---
Date of Service: 09/10/18 Critical Care Services: 73 F with prolonged intubation/mechanical ventilation Patient seen and examined at the bedside -remains intubated, mechanical ventilation - awake, not on sedation/analgesia Vital Signs: Temp Pulse Resp BP SpO2 FiO2 99.3 F 93 34 154/79 94 40 09/10/18 13:15 09/10/18 13:15 09/10/18 13:00 09/10/18 13:00 09/10/18 13:15 09/10 12:00 Physical Exam: Gen:NAD, intubated/mechanical ventilated HEENT:NCAT, PERRL, neck supple, no thyromegaly, ETT in oral orifice Lungs:CTAB Cardiac: +S1S2, RRR Abdomen:Colostomy functional, soft, normoactive bowel sounds Extremities:edema- LE including dorsum of feet and hands Neuro:nonfocal Fluid Balance (Past 24 Hours): I= O= Net Intake & Output 09/08/18 09/09/18 09/10/18 09/11/18 06:59 06:59 06:59 06:59 Intake Total 5589 068 9131 30 Output Total 2150 1275 1595 850 Balance -1141 -607 -323 -820 Weight 168 lb 3.403 oz 169 lb 1.6 oz Intake: IV Fluids 152 183 270 ABX - ZOSYN 21 Anidulafungin 51 NS 80 183 270 IVPB 423 485 107 ABX - ZOSYN 283 351 107 Anidulafungin 140 134 Oral 0 Tube Feeding 434 895 Tube Feeding Flush Amount 30 NG Tube Irrigate Amount 0 Output: NG Tube Drainage Amount 0 Wound Vac 75 100 Frost 2024 925 770 750 Colostomy 50 350 825 Estimated Blood Loss 0 Other: Date of Last Bowel 09/10/18 09/10/18 Movement ADLs: Meal Record Start: 08/29/18 16: 46 Freq: Status: Complete Protocol: Created 08/29/18 16:46 System (Rec: 08/29/18 16:46 System SSU-C12) Document 08/31/18 08:14 PNY7300 (Rec: 08/31/18 08:14 WMH0519 SSU-C04) Document 08/31/18 12:24 LSR1303 (Rec: 08/31/18 12:25 FRZ8412 SSU-C04) ADLs: Meal Record Start: 08/31/18 17: 06 Freq: 09,13,18 Status: Inactive Protocol: Created 08/31/18 17:06 XKM4812 (Rec: 08/31/18 17:06 RQB7782 ICU-M23) Document 08/31/18 18:00 WIW8760 (Rec: 08/31/18 20:04 GJI2340 ICU-C21) Intake and Output Start: 08/29/18 09: 06 Freq: Status: Active Protocol: Created 08/29/18 09:06 System (Rec: 08/29/18 09:06 System EDRM-C04) Document 08/30/18 00:00 IWE9069 (Rec: 08/30/18 06:50 GXJ4349 SSU-M14) Intake and Output Start: 08/29/18 16: 46 Freq: DAILY@0600,1400,2200 Status: Complete Protocol: Created 08/29/18 16:46 System (Rec: 08/29/18 16:46 System SSU-C12) Document 08/29/18 22:10 PCJ7423 (Rec: 08/29/18 22:11 LJI9480 SSU-M18) Document 08/30/18 03:59 SZV6365 (Rec: 08/30/18 03:59 WPM2824 SSU-M14) Document 08/30/18 06:34 TCN0921 (Rec: 08/30/18 06:34 IAV1269 SSU-C09) Document 08/30/18 14:16 IWU3023 (Rec: 08/30/18 14:16 QYM5061 SSU-C08) Document 08/30/18 18:30 MWS7481 (Rec: 08/30/18 22:44 SAI9923 SSU-M17) Document 08/30/18 22:44 YJO5276 (Rec: 08/30/18 22:46 NQM0983 SSU-M17) Document 08/31/18 01:13 HYI8005 (Rec: 08/31/18 01:14 VAB1279 SSU-C03) Document 08/31/18 05:51 FCZ7568 (Rec: 08/31/18 05:51 RIR8825 SSU-C03) Document 08/31/18 06:36 ZYL6021 (Rec: 08/31/18 06:36 BKR6846 SSU-C03) Document 08/31/18 12:26 RAK9307 (Rec: 08/31/18 12:26 VHQ0159 U-C04) Document 08/31/18 14:19 ERO0269 (Rec: 08/31/18 14:20 FDD4802 SSU-C04) Intake and Output Start: 08/31/18 17: 06 Freq: Q1HR Status: Active Protocol: Created 08/31/18 17:06 OFV6989 (Rec: 08/31/18 17:06 BQQ7745 ICU-M23) Document 08/31/18 18:00 TEL8049 (Rec: 08/31/18 20:04 ASY4098 ICU-C21) Document 08/31/18 19:00 HFI8833 (Rec: 09/01/18 01:29 EVU9008 ICU-C25) Document 08/31/18 20:00 RZL2619 (Rec: 09/01/18 01:41 FOG3379 ICU-C25) Document 08/31/18 22:00 OGZ5281 (Rec: 09/01/18 01:46 WUL8729 ICU-C25) Document 08/31/18 23:00 GLE3463 (Rec: 09/01/18 01:48 BYQ8348 ICU-C25) Document 09/01/18 00:00 NLG7600 (Rec: 09/01/18 02:30 LXN8948 ICU-C25) Co-Sign 09/01/18 00:00 TPF5244 Document 09/01/18 01:00 UBY3328 (Rec: 09/01/18 02:57 VJM2932 ICU-C25) Document 09/01/18 02:00 KZX4697 (Rec: 09/01/18 03:00 EZP7388 ICU-C25) Document 09/01/18 03:00 ZIG2002 (Rec: 09/01/18 03:07 CGS5158 ICU-C25) Document 09/01/18 04:00 VFH0529 (Rec: 09/01/18 04:17 DIG9719 ICU-C25) Document 09/01/18 05:00 OIA4294 (Rec: 09/01/18 05:13 HNQ8168 ICU-C25) Document 09/01/18 06:00 ISO6699 (Rec: 09/01/18 06:45 HQA9471 ICU-C25) Document 09/01/18 07:00 SAU3431 (Rec: 09/01/18 07:09 JAP7930 ICU-M23) Document 09/01/18 08:00 UHU8620 (Rec: 09/01/18 09:02 ZEN2853 ICU-M23) Document 09/01/18 09:00 EKS3206 (Rec: 09/01/18 09:02 RDG0574 ICU-M23) Document 09/01/18 10:06 QUD5401 (Rec: 09/01/18 10:06 DDP3437 ICU-M23) Document 09/01/18 11:00 XWV3051 (Rec: 09/01/18 11:06 NRJ5713 ICU-M23) Document 09/01/18 12:00 SRI3697 (Rec: 09/01/18 12:26 SSU6442 ICU-M23) Document 09/01/18 13:00 GWY1384 (Rec: 09/01/18 14:29 RMQ0832 ICU-M23) Document 09/01/18 14:00 PUK3987 (Rec: 09/01/18 14:29 EUG3048 ICU-M23) Document 09/01/18 14:48 LHV3955 (Rec: 09/01/18 14:50 OPR1895 ICU-M23) Document 09/01/18 15:00 AVD8659 (Rec: 09/01/18 16:04 XVP1908 ICU-M23) Document 09/01/18 16:00 GSS6017 (Rec: 09/01/18 16:04 QXX9458 ICU-M23) Document 09/01/18 17:05 SKO1854 (Rec: 09/01/18 17:05 TAQ3232 ICU-M23) Document 09/01/18 18:00 SMS3509 (Rec: 09/01/18 18:04 OHF6660 ICU-M23) Document 09/01/18 20:00 MCT2752 (Rec: 09/01/18 20:25 QDN3838 ICU-M23) Document 09/01/18 21:00 BFK0928 (Rec: 09/01/18 21:04 RNI3388 ICU-M23) Document 09/01/18 22:00 GGM1716 (Rec: 09/01/18 22:13 TUM8550 ICU-M23) Document 09/01/18 23:00 HJR3370 (Rec: 09/01/18 23:20 TPE6678 ICU-M23) Document 09/02/18 00:00 ULN5591 (Rec: 09/02/18 00:08 VJP5863 ICU-M23) Document 09/02/18 01:00 PTK8180 (Rec: 09/02/18 01:04 RRM1287 ICU-M23) Document 09/02/18 02:00 ZYZ3620 (Rec: 09/02/18 02:20 AXO5915 ICU-M23) Document 09/02/18 03:00 MJW1217 (Rec: 09/02/18 03:03 NOO6984 ICU-M23) Document 09/02/18 04:00 VFY2629 (Rec: 09/02/18 04:14 KYN8503 ICU-M23) Document 09/02/18 05:00 NMC6290 (Rec: 09/02/18 05:01 JJN2647 ICU-M23) Document 09/02/18 05:25 HAU1333 (Rec: 09/02/18 05:26 EOK0518 ICU-M23) Document 09/02/18 05:28 EBH3382 (Rec: 09/02/18 05:29 MTN3122 ICU-M23) Document 09/02/18 06:00 PGM4481 (Rec: 09/02/18 06:09 LGA2980 ICU-M23) Document 09/02/18 07:00 PII9442 (Rec: 09/02/18 07:23 ODQ6322 ICU-M23) Document 09/02/18 08:00 HZX3702 (Rec: 09/02/18 08:33 SNH3728 ICU-M23) Document 09/02/18 09:00 SWM9905 (Rec: 09/02/18 09:27 KVW9107 ICU-C06) Document 09/02/18 10:00 IVK4300 (Rec: 09/02/18 12:05 RQH5910 ICU-M23) Document 09/02/18 11:00 SBK8777 (Rec: 09/02/18 12:05 JYO0252 ICU-M23) Document 09/02/18 12:00 KTY2966 (Rec: 09/02/18 12:05 RGN4285 ICU-M23) Document 09/02/18 13:00 SEY2976 (Rec: 09/02/18 13:16 TPF4326 ICU-M23) Document 09/02/18 14:00 FOS3047 (Rec: 09/02/18 14:04 LZD4501 ICU-M23) Document 09/02/18 15:00 MLK7055 (Rec: 09/02/18 15:30 OKP4105 ICU-C25) Document 09/02/18 16:00 ATT4985 (Rec: 09/02/18 16:29 ERT2873 ICU-M23) Document 09/02/18 17:00 ZVL7464 (Rec: 09/02/18 17:14 DRZ6126 ICU-M23) Document 09/02/18 18:00 QEN0145 (Rec: 09/02/18 18:07 XLT8716 ICU-M23) Document 09/02/18 20:00 SQE4515 (Rec: 09/02/18 20:00 NYX0448 ICU-M23) Document 09/02/18 21:00 NHE0846 (Rec: 09/02/18 21:05 SAA6724 ICU-M23) Document 09/02/18 22:00 DTQ3821 (Rec: 09/02/18 22:07 LDF7716 ICU-M23) Document 09/02/18 23:00 QXJ6812 (Rec: 09/02/18 23:39 WMI4432 ICU-M23) Document 09/03/18 00:00 MHG6517 (Rec: 09/03/18 01:04 VUB0084 ICU-M23) Document 09/03/18 01:00 TGL5738 (Rec: 09/03/18 01:06 DAW9661 ICU-M23) Document 09/03/18 02:00 KCF6554 (Rec: 09/03/18 03:22 LYK9729 ICU-M23) Document 09/03/18 03:00 BJX1258 (Rec: 09/03/18 03:22 RAF3535 ICU-M23) Document 09/03/18 04:00 GEO9422 (Rec: 09/03/18 04:26 OQN5178 ICU-M23) Document 09/03/18 05:00 OAT9246 (Rec: 09/03/18 05:00 ARE6200 ICU-M23) Document 09/03/18 06:00 KZF9980 (Rec: 09/03/18 06:59 ZLO6277 ICU-M23) Document 09/03/18 07:00 AMW1214 (Rec: 09/03/18 07:26 NYX7388 ICU-C06) Document 09/03/18 07:46 XMZ6994 (Rec: 09/03/18 07:46 MDW7395 ICU-C06) Document 09/03/18 08:00 VOZ2496 (Rec: 09/03/18 08:10 FYP5375 ICU-C06) Document 09/03/18 10:00 KNJ5014 (Rec: 09/03/18 11:00 ETW4241 ICU-M23) Document 09/03/18 11:00 HLU0139 (Rec: 09/03/18 11:50 ZYB3107 ICU-C06) Document 09/03/18 13:00 SUO9746 (Rec: 09/03/18 14:04 FBL5847 ICU-C06) Document 09/03/18 14:00 ZYX5177 (Rec: 09/03/18 15:51 PAE6214 ICU-C06) Document 09/03/18 15:00 VBA0620 (Rec: 09/03/18 15:53 KCX8901 ICU-C06) Document 09/03/18 20:28 NPQ7750 (Rec: 09/03/18 20:28 QZP7243 ICU-M23) Document 09/03/18 23:58 JVB1400 (Rec: 09/03/18 23:58 GXQ4605 ICU-M23) Document 09/04/18 02:00 PNI0371 (Rec: 09/04/18 02:09 IWN1952 ICU-M23) Document 09/04/18 03:00 TCU0494 (Rec: 09/04/18 03:13 PJF2950 ICU-C06) Document 09/04/18 04:00 LTQ1374 (Rec: 09/04/18 04:00 NZO2760 ICU-M23) Document 09/04/18 05:00 BMC3036 (Rec: 09/04/18 05:13 TGO4869 ICU-M23) Document 09/04/18 06:00 QBX3074 (Rec: 09/04/18 06:04 KIQ9364 ICU-M23) Document 09/04/18 06:11 NJJ6189 (Rec: 09/04/18 06:11 HMN8452 ICU-M23) Document 09/04/18 08:00 PLC6091 (Rec: 09/04/18 09:23 SMC7502 ICU-C12) Document 09/04/18 09:00 KRV7460 (Rec: 09/04/18 09:23 CWU3353 ICU-C12) Document 09/04/18 10:00 SIY7458 (Rec: 09/04/18 10:16 NFN3923 ICU-M23) Document 09/04/18 11:00 SFQ1283 (Rec: 09/04/18 11:45 JPS2626 ICU-M23) Document 09/04/18 12:00 OXC3710 (Rec: 09/04/18 12:47 FMP1527 ICU-M23) Document 09/04/18 13:00 NYB5083 (Rec: 09/04/18 13:01 TSL3857 ICU-C12) Document 09/04/18 14:29 PSU9919 (Rec: 09/04/18 14:29 WDR8313 ICU-C12) Document 09/04/18 15:00 IGH8146 (Rec: 09/04/18 16:31 QJD5648 ICU-C12) Document 09/04/18 16:00 MJF2246 (Rec: 09/04/18 17:00 ZKD4066 ICU-C12) Co-Sign 09/04/18 16:00 WRO5827 Document 09/04/18 17:00 IKJ8914 (Rec: 09/04/18 17:23 RLI5977 ICU-C12) Document 09/04/18 18:00 TON4436 (Rec: 09/04/18 18:32 IRB2522 ICU-C12) Document 09/04/18 19:37 CPM4053 (Rec: 09/04/18 19:37 ZQU0526 ICU-M23) Document 09/04/18 21:00 DZD2159 (Rec: 09/04/18 21:11 IKB0367 ICU-M23) Document 09/04/18 22:00 DJM8737 (Rec: 09/04/18 22:44 ONG4328 ICU-M23) Document 09/04/18 23:00 AUK8096 (Rec: 09/04/18 23:12 RWE5537 ICU-C06) Document 09/05/18 00:00 JIV2694 (Rec: 09/05/18 01:12 CNR1761 ICU-M23) Document 09/05/18 01:00 BBZ6730 (Rec: 09/05/18 01:12 EUX8125 ICU-M23) Document 09/05/18 01:49 RFI6676 (Rec: 09/05/18 01:49 IBI5058 ICU-M23) Document 09/05/18 02:00 JED8474 (Rec: 09/05/18 02:05 RUF0971 ICU-M23) Document 09/05/18 03:00 AAT2159 (Rec: 09/05/18 03:10 VFS1289 ICU-M23) Document 09/05/18 04:00 ADJ8152 (Rec: 09/05/18 04:22 CWD1493 ICU-C06) Document 09/05/18 05:00 QLD4594 (Rec: 09/05/18 05:18 RFS4779 ICU-M23) Document 09/05/18 06:00 KWC1323 (Rec: 09/05/18 06:08 OLC4819 ICU-C06) Document 09/05/18 06:55 TMI0317 (Rec: 09/05/18 06:55 EJU1196 ICU-C06) Document 09/05/18 07:00 YUO5208 (Rec: 09/05/18 07:22 ZUQ6985 ICU-C12) Document 09/05/18 08:00 IGD6991 (Rec: 09/05/18 09:09 XYD9602 ICU-C12) Document 09/05/18 09:00 WAV8575 (Rec: 09/05/18 09:16 EMY7949 ICU-C12) Document 09/05/18 10:00 YBF0178 (Rec: 09/05/18 10:04 CGM9203 ICU-M23) Document 09/05/18 11:00 VUD0743 (Rec: 09/05/18 11:45 KDQ4536 ICU-C12) Document 09/05/18 12:00 RXV0533 (Rec: 09/05/18 12:48 DCP8657 ICU-C12) Document 09/05/18 13:00 TLJ3517 (Rec: 09/05/18 13:16 VBH3352 ICU-C12) Document 09/05/18 14:00 QFW0893 (Rec: 09/05/18 14:14 PAR7429 ICU-C12) Document 09/05/18 15:00 MET6290 (Rec: 09/05/18 15:43 SAV3965 ICU-C12) Document 09/05/18 16:00 KVS5632 (Rec: 09/05/18 16:37 BOX1227 ICU-C12) Document 09/05/18 17:00 SZJ3085 (Rec: 09/05/18 17:58 XID6911 ICU-C12) Document 09/05/18 18:00 FQD1878 (Rec: 09/05/18 18:21 XWO7189 ICU-M23) Document 09/05/18 19:48 FOR0659 (Rec: 09/05/18 19:48 FEQ7285 ICU-M23) Document 09/05/18 19:54 WIJ0220 (Rec: 09/05/18 20:06 MLL6808 ICU-C25) Document 09/05/18 21:00 TPI5539 (Rec: 09/05/18 21:20 BQN7305 ICU-M23) Document 09/05/18 21:52 QKI3344 (Rec: 09/05/18 21:52 JLT3020 ICU-M23) Document 09/05/18 23:00 FFJ3963 (Rec: 09/05/18 23:08 IAW5523 ICU-C12) Document 09/05/18 23:48 OEA2466 (Rec: 09/05/18 23:48 TNF2788 ICU-M23) Document 09/06/18 01:00 UMD4256 (Rec: 09/06/18 01:04 VVS5558 ICU-C12) Document 09/06/18 02:00 GJQ0027 (Rec: 09/06/18 02:09 GWU4679 ICU-C12) Document 09/06/18 04:00 XYU3520 (Rec: 09/06/18 04:17 JZL2609 ICU-M23) Document 09/06/18 05:00 BYS8783 (Rec: 09/06/18 05:06 XAT4928 ICU-M23) Document 09/06/18 05:07 KXX1067 (Rec: 09/06/18 05:07 GED9663 ICU-M23) Document 09/06/18 06:35 NKX1232 (Rec: 09/06/18 06:35 YTG5656 ICU-M23) Document 09/06/18 07:00 EDJ8365 (Rec: 09/06/18 09:01 YLZ4345 ICU-M23) Document 09/06/18 08:00 JEB6251 (Rec: 09/06/18 09:01 FIJ4450 ICU-M23) Document 09/06/18 09:00 AZD7569 (Rec: 09/06/18 09:01 VGK6795 ICU-M23) Document 09/06/18 10:00 HVV8098 (Rec: 09/06/18 10:16 NDN9538 ICU-C12) Document 09/06/18 11:00 GHC9900 (Rec: 09/06/18 11:48 EPH0849 ICU-C12) Document 09/06/18 12:00 TVD0828 (Rec: 09/06/18 12:20 UJZ8437 ICU-C12) Document 09/06/18 13:00 AIQ8667 (Rec: 09/06/18 13:50 MKS6826 ICU-C11) Document 09/06/18 13:00 CBP5680 (Rec: 09/06/18 13:57 UPV5719 ICU-L03) Document 09/06/18 15:00 FHW4970 (Rec: 09/06/18 15:13 CVQ3094 ICU-M23) Document 09/06/18 16:00 ZIC7404 (Rec: 09/06/18 16:40 MPT6360 ICU-C12) Document 09/06/18 17:14 NRS4987 (Rec: 09/06/18 17:14 FBG1659 ICU-C12) Document 09/06/18 18:00 XGK5652 (Rec: 09/06/18 18:01 WUE6267 ICU-M23) Document 09/06/18 18:27 UYH1443 (Rec: 09/06/18 18:27 LJP4114 ICU-M23) Document 09/06/18 18:27 UFT9485 (Rec: 09/06/18 18:28 WAE0902 ICU-M23) Document 09/06/18 18:29 SWY4337 (Rec: 09/06/18 18:30 ZED8130 ICU-M23) Document 09/06/18 19:00 YVR2467 (Rec: 09/06/18 19:21 KOH5259 ICU-M23) Document 09/06/18 22:00 PBO0421 (Rec: 09/06/18 22:33 BOA2497 ICU-M23) Document 09/06/18 23:00 KDG3339 (Rec: 09/06/18 23:46 IWN9234 ICU-M23) Document 09/06/18 23:55 VLE7017 (Rec: 09/06/18 23:56 GAH6336 ICU-M23) Document 09/07/18 00:58 GOV2455 (Rec: 09/07/18 00:58 RNB8679 ICU-M23) Document 09/07/18 02:00 JWB3663 (Rec: 09/07/18 02:58 IBJ2756 ICU-M23) Document 09/07/18 02:59 XNO7130 (Rec: 09/07/18 02:59 OBC7248 ICU-M23) Document 09/07/18 04:00 YLP8075 (Rec: 09/07/18 05:04 OXJ3589 ICU-C12) Document 09/07/18 05:00 KLV5331 (Rec: 09/07/18 05:05 SGM4108 ICU-C12) Document 09/07/18 06:00 UBP6011 (Rec: 09/07/18 06:22 VTH0742 ICU-M23) Document 09/07/18 06:59 VPA4233 (Rec: 09/07/18 06:59 YNS8349 ICU-M23) Document 09/07/18 07:00 NVV8344 (Rec: 09/07/18 07:01 PMZ4242 ICU-M23) Document 09/07/18 08:00 JFS0215 (Rec: 09/07/18 08:14 MTW2081 ICU-M23) Document 09/07/18 09:00 EQL0052 (Rec: 09/07/18 09:38 YSJ8408 ICU-M23) Document 09/07/18 10:00 NBF5628 (Rec: 09/07/18 11:01 OLO8556 ICU-M23) Document 09/07/18 11:00 ZUO2090 (Rec: 09/07/18 11:01 RVR4696 ICU-M23) Document 09/07/18 13:00 ZPI8705 (Rec: 09/07/18 13:15 UZB0527 ICU-M23) Document 09/07/18 14:00 KIV9950 (Rec: 09/07/18 16:39 IIP7002 ICU-M23) Document 09/07/18 15:00 RFU9714 (Rec: 09/07/18 16:39 FSK4583 ICU-M23) Document 09/07/18 16:00 IGA4320 (Rec: 09/07/18 16:39 BEQ5580 ICU-M23) Document 09/07/18 16:52 OEG2897 (Rec: 09/07/18 16:52 QFE8949 ICU-M23) Document 09/07/18 17:00 ENW5071 (Rec: 09/07/18 18:18 LGG9774 ICU-M23) Document 09/07/18 18:00 WAG0764 (Rec: 09/07/18 18:18 NUH9990 ICU-M23) Document 09/07/18 18:19 FAX6729 (Rec: 09/07/18 18:19 BLJ7841 ICU-M23) Document 09/07/18 18:23 IWK0716 (Rec: 09/07/18 18:23 ZJD9427 ICU-M23) Document 09/07/18 19:00 VHP9580 (Rec: 09/07/18 19:49 ZCP0211 ICU-M23) Document 09/07/18 19:50 FET3461 (Rec: 09/07/18 20:03 LBO4460 ICU-M23) Document 09/07/18 21:00 ENO1863 (Rec: 09/07/18 21:18 QGK2156 ICU-M23) Document 09/07/18 21:54 WGE2715 (Rec: 09/07/18 21:54 HFQ2127 ICU-M23) Document 09/07/18 23:00 JFB0981 (Rec: 09/07/18 23:26 ICJ1553 ICU-M23) Document 09/08/18 00:00 VSD5557 (Rec: 09/08/18 01:06 EVD6016 ICU-C12) Document 09/08/18 01:00 BCA0848 (Rec: 09/08/18 01:07 IHR6061 ICU-C12) Document 09/08/18 02:00 UQN5272 (Rec: 09/08/18 02:27 EAS7284 ICU-M23) Document 09/08/18 03:00 KDM3610 (Rec: 09/08/18 03:06 JWE8327 ICU-C12) Document 09/08/18 04:00 YOT7101 (Rec: 09/08/18 04:58 VXX8398 ICU-M23) Document 09/08/18 04:59 WIW0264 (Rec: 09/08/18 04:59 WIY8160 ICU-M23) Document 09/08/18 05:08 MFY4160 (Rec: 09/08/18 05:08 GTE7985 ICU-M23) Document 09/08/18 05:47 FHF8142 (Rec: 09/08/18 05:50 JYA1603 ICU-M23) Document 09/08/18 07:00 WDS5724 (Rec: 09/08/18 09:42 DWI6469 ICU-C06) Document 09/08/18 08:00 MFY7134 (Rec: 09/08/18 10:46 ZOW4418 ICU-C06) Document 09/08/18 09:00 QEU5180 (Rec: 09/08/18 10:54 ZZN4615 ICU-C06) Document 09/08/18 10:00 WSE6140 (Rec: 09/08/18 10:54 JNQ4084 ICU-C06) Document 09/08/18 10:54 UIB4708 (Rec: 09/08/18 10:54 XVU8470 ICU-C06) Document 09/08/18 12:00 FPP9424 (Rec: 09/08/18 13:24 CQV5096 ICU-C06) Document 09/08/18 13:00 CIG6498 (Rec: 09/08/18 13:24 HUP7699 ICU-C06) Document 09/08/18 17:00 MIJ1721 (Rec: 09/08/18 17:57 VHA4955 ICU-C12) Document 09/08/18 18:00 KNQ8295 (Rec: 09/08/18 18:09 IJP0745 ICU-C12) Document 09/08/18 19:00 AOV1181 (Rec: 09/08/18 19:10 YYJ0466 ICU-M23) Document 09/08/18 20:00 HJH0713 (Rec: 09/08/18 20:20 YOZ1481 ICU-M23) Document 09/08/18 20:40 MHJ6489 (Rec: 09/08/18 20:41 XFV9532 ICU-C25) Document 09/08/18 20:52 PFV2587 (Rec: 09/08/18 20:52 DRU3264 ICU-C25) Document 09/08/18 21:41 PPJ3297 (Rec: 09/08/18 21:43 TZU2355 ICU-M23) Document 09/08/18 23:00 SDO4325 (Rec: 09/08/18 23:37 MPC3690 ICU-C25) Document 09/09/18 00:00 PFE1717 (Rec: 09/09/18 00:14 UNX4496 ICU-M23) Document 09/09/18 01:00 YIG2640 (Rec: 09/09/18 01:14 MXI1971 ICU-C25) Document 09/09/18 01:58 QFR2034 (Rec: 09/09/18 01:59 WZE0463 ICU-C25) Document 09/09/18 03:00 IFI1881 (Rec: 09/09/18 03:18 MPO8378 ICU-C25) Document 09/09/18 04:00 NGF3472 (Rec: 09/09/18 04:25 TNL3210 ICU-C25) Document 09/09/18 05:00 BTR9418 (Rec: 09/09/18 05:49 ZVG7149 ICU-C25) Document 09/09/18 06:00 UUY9282 (Rec: 09/09/18 06:03 GTP1906 ICU-M23) Document 09/09/18 07:00 NOJ0597 (Rec: 09/09/18 08:57 NXH0219 ICU-C15) Document 09/09/18 08:00 THI9688 (Rec: 09/09/18 09:06 TPO6351 ICU-C15) Document 09/09/18 08:00 PJT5915 (Rec: 09/09/18 18:34 DRP5064 ICU-M23) Document 09/09/18 09:00 JZQ2821 (Rec: 09/09/18 09:06 NDC9249 ICU-C15) Document 09/09/18 10:00 PPT5406 (Rec: 09/09/18 13:20 [id number] ICU-C15) Document 09/09/18 11:00 SXK7315 (Rec: 09/09/18 13:20 MHW1726 ICU-C15) Document 09/09/18 12:00 DBG3336 (Rec: 09/09/18 13:20 HWD4052 ICU-C15) Document 09/09/18 13:00 NAI2081 (Rec: 09/09/18 13:20 SJM6868 ICU-C15) Document 09/09/18 14:49 SSD9636 (Rec: 09/09/18 14:49 DPQ9151 ICU-M23) Document 09/09/18 15:00 NMO7289 (Rec: 09/09/18 16:13 DBW0459 ICU-M23) Document 09/09/18 16:00 UNQ8361 (Rec: 09/09/18 16:13 FTN9927 ICU-M23) Document 09/09/18 17:00 AGJ1877 (Rec: 09/09/18 18:32 EWA7251 ICU-M23) Document 09/09/18 18:00 XCX6154 (Rec: 09/09/18 18:32 CRK3410 ICU-M23) Document 09/09/18 19:00 ZOP5605 (Rec: 09/09/18 19:51 ZGV2306 ICU-C14) Document 09/09/18 19:51 KCR6047 (Rec: 09/09/18 19:53 CYV8208 ICU-C14) Document 09/09/18 21:00 KPO6691 (Rec: 09/09/18 21:31 ZDU8453 ICU-M23) Document 09/09/18 21:55 JFS7986 (Rec: 09/09/18 21:57 NMN4385 ICU-C14) Document 09/09/18 23:00 GND6632 (Rec: 09/09/18 23:49 UAZ8155 ICU-C14) Document 09/09/18 23:50 GGD3592 (Rec: 09/09/18 23:53 KGR8098 ICU-C14) Document 09/10/18 00:55 WMR5398 (Rec: 09/10/18 00:57 RIL3597 ICU-C14) Document 09/10/18 02:00 UTS8010 (Rec: 09/10/18 02:03 WIR2426 ICU-C14) Document 09/10/18 02:49 ZTT5358 (Rec: 09/10/18 02:50 [id number] ICU-C14) Document 09/10/18 03:59 GDY4716 (Rec: 09/10/18 04:00 AAA6074 ICU-M23) Document 09/10/18 05:00 GJQ7596 (Rec: 09/10/18 05:24 FDB2404 ICU-M23) Document 09/10/18 05:58 EYW9658 (Rec: 09/10/18 05:59 DLK0434 ICU-C14) Document 09/10/18 07:00 KDN9066 (Rec: 09/10/18 07:42 HKO0921 ICU-C12) Document 09/10/18 08:00 CTI0211 (Rec: 09/10/18 08:55 DZK4651 ICU-C12) Document 09/10/18 09:00 CQH6901 (Rec: 09/10/18 09:49 FER1132 ICU-C12) Document 09/10/18 09:59 OFY3464 (Rec: 09/10/18 10:00 JUT1261 ICU-C12) Document 09/10/18 11:00 QTL5072 (Rec: 09/10/18 11:12 IWC0812 ICU-C12) Document 09/10/18 12:00 LTA4905 (Rec: 09/10/18 12:57 VUS8834 ICU-C12) Document 09/10/18 13:00 [id number] (Rec: 09/10/18 13:37 LIB8782 ICU-C12) Labs: Laboratory Results - last 24 hr 09/10/18 09/10/18 09/10/18 03:57 03:57 10:57 WBC 29.8 H 32.4 H RBC 3.33 L 3.52 L Hgb 9.3 L 9.7 L Hct 29 L 30 L MCV 86 86 MCH 28 28 MCHC 33 32 RDW 16 H 16 H Plt Count 215 238 MPV 8.4 8.5 Neut % (Auto) 89.7 90.3 Lymph % (Auto) 2.7 2.4 Meigs % (Auto) 7.1 6.9 Eos % (Auto) 0.3 0.3 Baso % (Auto) 0.2 0.1 Absolute Neuts (auto) 26.7 H 29.2 H Absolute Lymphs (auto) 0.8 L 0.8 L Absolute Monos (auto) 2.1 H 2.3 H Absolute Eos (auto) 0.1 0.1 Absolute Basos (auto) 0.1 0.0 Absolute Nucleated RBC 0.1 0.0 Nucleated RBC % 0.2 0.1 Polychromasia 1+ Hypochromasia 3+ Sodium 142 Potassium 3.6 Chloride 108 Carbon Dioxide 30 Anion Gap 4 BUN 17 Creatinine 0.41 L Est GFR ( Amer) 184.0 Est GFR (Non-Af Amer) 152.1 BUN/Creatinine Ratio 41.5 H Glucose 163 H Calcium 7.2 L Phosphorus Magnesium 09/10/18 10:57 WBC RBC Hgb Hct MCV MCH MCHC RDW Plt Count MPV Neut % (Auto) Lymph % (Auto) Meigs % (Auto) Eos % (Auto) Baso % (Auto) Absolute Neuts (auto) Absolute Lymphs (auto) Absolute Monos (auto) Absolute Eos (auto) Absolute Basos (auto) Absolute Nucleated RBC Nucleated RBC % Polychromasia Hypochromasia Sodium 140 Potassium 3.7 Chloride 108 Carbon Dioxide 28 Anion Gap 4 BUN 17 Creatinine 0.38 L Est GFR ( Amer) 200.9 Est GFR (Non-Af Amer) 166.0 BUN/Creatinine Ratio 44.7 H Glucose 182 H Calcium 7.2 L Phosphorus 2.0 L Magnesium 1.9 Studies: Patient Name: LNODON MEDINA Medical Record#: [id number] Ordering Physician: Cecilia Ramirez MD Acct.#: [id number] : 1945 Age: 73 Sex: F Location: [facility] Exam Date: 09/10/18926 ADM Status: ADM IN Order Information: CHEST AP OR PORT Accession Number: [id number] CPT: 19899 HISTORY: intubated, pneumonia COMPARISONS: September 08, 2018 VIEWS: 1: frontal AP view of the chest at 10:00 AM FINDINGS: LINES AND TUBES: An endotracheal tube is noted with the tip overlying the trachea between the clavicles and the radha. A gastric tube is noted. The tip is below the [id number] of the current examination, but is below the diaphragm. A left internal jugular vein is noted with the tip at the confluence of the left brachiocephalic vein and superior vena cava. CARDIOMEDIASTINAL SILHOUETTE: The cardiomediastinal silhouette is normal for portable technique. PLEURA: There is blunting of left costophrenic angle. LUNG PARENCHYMA: The lungs are clear. ABDOMEN: The upper abdomen is clear. There is no subphrenic gas. BONES AND SOFT TISSUES: No bone or soft tissue abnormalities are noted. IMPRESSION: LINES AND TUBES ABOVE. SMALL LEFT PLEURAL EFFUSION. <Electronically signed by Sheldon Alcazar MD in [place]> 09/10/18 1024 Dictated By: Sheldon Alcazar MD Dictated Date/Time: 09/10/18 1024 Transcribed Date/Time: 09/10/18 1023 Copy to: CC:Latonia Pickering MD; Lora Ramos MD; Cecilia Ramirez MD; Sebastián Jacobo MD; Aditya Crawford MD; Emil Martini MD; Sophie Tucker MD Imaging - [facility] - [facility] [address] [address] ph ([phone]) ph ([phone]) ph ([phone]) This report is only to be considered final once signed by the Provider(s) as displayed in the "<Electronically Signed by >" field (s). Absence of a signature indicates the report is in a draft status and still needs to be finalized. In the event this document was created by someone other than the signing Provider, the individual initiating the document will be listed in the "Entered by:" or "Dictated by:" adams. 1 of 2 Nutrition: TF Impression: 73 F with prolonged intubation/mechanical ventilation Plan: # Ex-lap x 3 for perforated sigmoid colon diverticulitis # Sepsis/septic shock-resolved # Acute respiratory failure, now prolonged intubation and mechanical ventilation # progressive leukocytosis- non toxic appearance # anasarca, pleural effusion - surgical management as per Dr. Sanchez - continue with zosyn and antifungal - blood culturesx 2 - TF at goal - keep on PS if tolerated, currently on 10. Will hold off on trach plans for 48 hours for now - precedex gtt for anxiety - start fentanyl at low gtt, eileen tylenol and prn oxycodone for pain control -albumin bolus followed by lasix daily x 3 doses PPX DVT- [facility] GI- H2B Prognosis: guarded/critical Code: Full Dispo: Monitor in MICU Critical Care Time: 35 minutes
[2018-09-10] MEDS: Acetaminophen ADULT LIQ* 650 MG/20.3 ML UDC G TUBE SCH ×2 (16:14→22:08)
[2018-09-10] MEDS: oxyCODONE ORAL.SOLN* 5 MG/5 ML UDC PO PRN (18:20)
[2018-09-10] MEDS ORDERED: NS 0.9% 1000 ML** 1,000 ML IV ONE (20:36)
[2018-09-10 21:33] LABS: Albumin 2.1 g/dL (3.2-5.2); BUN/Creatinine Ratio 37.8 (8-20); Calcium 6.9 mg/dL (8.6-10.3); EGFR African American 165.3 (>60); EGFR Non-African American 136.6 (>60); Globulin 2.1 g/dL (2-4); Magnesium 1.8 mg/dL (1.9-2.7); Phosphorus 2.3 mg/dL (2.5-5.0); Potassium 3.3 mmol/L (3.5-5.0); Total Bilirubin 0.3 mg/dL (0.2-1.0); Total Protein 4.2 g/dL (6.4-8.9); Uric Acid 1.5 mg/dL (2.3-6.6)
--- NOTE | 2018-09-10 22:27 | PN ---
Hospitalist Progress Note Date of Service: 09/10/18 Pt seen and examined. Meds and labs reviewed. Called for pt being hypotensive w /SBPs in 60s. Pt found to be hypotensive, nontachycardic, CTA BL lungs, poor skin turgor on sternal area. I/O's in the negatives. Ordered 1L of NS bolus x 1 and IVF maintenance as ordered. Improved BPs w/MAP of 72 post bolus. Pt appears to be aware of surroundings. Decreased sedation as discussed w/staff. Ordered culture of central line due to recent peripheral cultures that have been sent. Awaiting CBC. EKG no changes. Corrected electrolyte abnormalities and bolused w/50 g of IV Albumin x1. Pt possibly intravascularly hypovolemic due to poor oncotic pressure in the setting of known sepsis. Will continue current management and watchful waiting.
[2018-09-10] MEDS ORDERED: Magnesium Sulfate 2 GM IV* 2 GM/50 ML BAG IVPB ONE (22:30)
[2018-09-10] MEDS ORDERED: Potassium Phosphate IV* 15 MMOLE in NS 0.9% 250 ML* 250 ML IVPB ONE (22:30)
[2018-09-10] MEDS: NS 0.9% 1000 ML** 1,000 ML IV SCH (23:35)
[2018-09-11] MEDS: Chlorhexidine MOUTHWASH 0.12%* 15 ML UDC TOPICAL SCH ×6 (00:23→19:54)
[2018-09-11] MEDS: ZOSYN 3.375 GM Q8H per EXTENDED INFUSION IVPB SCH ×6 (00:23→19:27)
[2018-09-11 01:02] LABS: Hematocrit 26 % (35-47); Hemoglobin 8.3 g/dL (12.0-16.0); Mean Corpuscular HGB Conc 32 g/dL (31-36); Mean Corpuscular Hemoglobin 28 pg (27-31); Mean Corpuscular Volume 85 fL (80-97); Mean Platelet Volume 8.3 fL (7.4-10.4); Platelet Count 219 10^3/uL (150-450); Red Blood Count 3.04 10^6 /uL (3.70-4.87); Red Cell Distribution Width 16 % (10.5-15); White Blood Count 26.6 10^3/uL (3.5-10.8)
[2018-09-11 01:05] LABS: ABS Lymphocytes 0.9 10^3/ul (1.0-4.8); ABS Monocytes 1.8 10^3/ul (0-0.8); ABS Neutrophils 23.8 10^3/ul (1.5-7.7); Eosinophil % 0.1 %; Lymphocyte % 3.5 %
[2018-09-11 01:08] LABS: Troponin I 0.06 ng/mL (<0.04)
[2018-09-11 03:32] LABS: Troponin I 0.05 ng/mL (<0.04)
[2018-09-11] MEDS ORDERED: Potassium Phosphate IV* 10 MMOLE in NS 0.9% 250 ML* 250 ML IVPB ONE (04:30)
[2018-09-11 04:34] LABS: Urine Appearance Cloudy; Urine Bacteria Absent (Absent); Urine Bilirubin Negative (Negative); Urine Blood Negative (Negative); Urine Color Yellow; Urine Glucose Negative (Negative); Urine Ketones Negative (Negative); Urine Nitrite Negative (Negative); Urine Protein 1+(30 mg/dL) (Negative); Urine Red Blood Cell 3+(>10/hpf) (Absent); Urine Specific Gravity 1.024 (1.010-1.030); Urine Urobilinogen Negative (Negative); Urine White Blood Cell Absent (Absent)
[2018-09-11] MEDS: Acetaminophen ADULT LIQ* 650 MG/20.3 ML UDC G TUBE SCH ×4 (04:43→22:36)
[2018-09-11] MEDS: Heparin VIAL(*) 5000 UNITS/ML VIAL (FIVE THOUSAND) SUBCUT SCH ×3 (05:13→22:36)
[2018-09-11 05:37] LABS: Hematocrit 25 % (35-47); Hemoglobin 7.9 g/dL (12.0-16.0); Mean Corpuscular HGB Conc 32 g/dL (31-36); Mean Corpuscular Hemoglobin 27 pg (27-31); Mean Corpuscular Volume 85 fL (80-97); Mean Platelet Volume 8.3 fL (7.4-10.4); Platelet Count 209 10^3/uL (150-450); Red Blood Count 2.88 10^6 /uL (3.70-4.87); Red Cell Distribution Width 16 % (10.5-15); White Blood Count 24.5 10^3/uL (3.5-10.8)
[2018-09-11 05:54] LABS: BUN/Creatinine Ratio 37.5 (8-20); Calcium 7.3 mg/dL (8.6-10.3); EGFR African American 189.3 (>60); EGFR Non-African American 156.5 (>60); Potassium 3.7 mmol/L (3.5-5.0)
[2018-09-11] MEDS: NS 0.9% 1000 ML** 1,000 ML IV SCH (07:40)
[2018-09-11 08:14] LABS: ABS Eosinophils 0.1 10^3/ul (0-0.6); ABS Lymphocytes 0.6 10^3/ul (1.0-4.8); ABS Monocytes 1.6 10^3/ul (0-0.8); ABS Neutrophils 22.2 10^3/ul (1.5-7.7); Eosinophil % 0.3 %; Lymphocyte % 2.5 %
[2018-09-11] MEDS: Furosemide IV* 10 MG/ML VIAL (40 MG) IV SCH (08:39)
[2018-09-11] MEDS: Famotidine IV* 10 MG/ML 2 ML (20 mg) IV SCH (08:39)
[2018-09-11] MEDS ORDERED: Albumin Human 25%* 50 GM/200 ML BTL IV SCH (09:00)
[2018-09-11 09:29] LABS: Magnesium 2.1 mg/dL (1.9-2.7)
[2018-09-11 09:35] LABS: Troponin I 0.05 ng/mL (<0.04)
[2018-09-11] MEDS ORDERED: Magnesium Sulfate 1 GM IV* 1 GM/100 ML BAG IV ONE (10:03)
[2018-09-11] MEDS ORDERED: Potassium Phosphate IV* 15 MMOLE in NS 0.9% 250 ML* 250 ML IVPB ONE (10:03)
[2018-09-11] MEDS ORDERED: Furosemide IV* 10 MG/ML VIAL (40 MG) IV ONE (10:03)
[2018-09-11] MEDS: Albumin Human 25%* 50 GM/200 ML BTL IV SCH (10:08)
[2018-09-11] MEDS: PTO:Budesonide/Formote 160/4.5(NF) MDI INH SCH ×2 (10:17→19:13)
[2018-09-11] MEDS: KCL 20 MEQ/100 ML IVPREMIX* 20 MEQ/100 ML BAG IV SCH ×2 (11:04→12:10)
--- NOTE | 2018-09-11 12:03 | PN ---
Date of Service: 09/11/18 Critical Care Services: 73 F with prolonged intubation/mechanical ventilation - Patient seen and examined at the bedside - She denies fever, chest pain, or new respiratory concerns - remains intubated, mechanical ventilation - awake, somnolent on precedex - She was hypotensive and was responsive to fluids Vital Signs: Temp Pulse Resp BP SpO2 FiO2 98.6 F 92 23 155/67 96 35 09/11/18 11:45 09/11/18 11:45 09/11/18 10:00 09/11/18 11:30 09/11/18 11:45 09/11 11:10 Physical Exam: Gen:NAD, intubated/mechanical ventilated HEENT:NCAT, PERRL, neck supple, no thyromegaly, ETT in oral orifice Lungs:CTAB Cardiac: +S1S2, RRR Abdomen:Colostomy functional, soft, normoactive bowel sounds Extremities:edema- LE including dorsum of feet and hands Neuro:nonfocal; weakness noted with passive movement of knee, hips, head 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 awake Fluid Balance (Past 24 Hours): I= O= Net Intake & Output 09/09/18 09/10/18 09/11/18 09/12/18 06:59 06:59 06:59 06:59 Intake Total 668 1272 4301 0 Output Total 1275 1595 3090 1375 Balance -607 -323 1211 -1375 Weight 169 lb 1.6 oz 171 lb 13.225 oz Intake: IV Fluids 004 732 4561 ABX - ZOSYN 100 Anidulafungin 0 NS 522 039 3067 potassium Phosphate 259 IVPB 485 107 340 ABX - ZOSYN 351 107 110 Albumin 100 Anidulafungin 134 130 Medicated IV 108 CC - Dexmedetomidine/ 58 Precedex GEN - Magnesium 50 Oral 0 Tube Feeding 895 1610 0 Tube Feeding Flush Amount 65 NG Tube Irrigate Amount 0 Output: NG Tube Drainage Amount 0 Wound Vac 100 0 Frost 442 313 5653 1225 Liquid Stool 75 Colostomy 350 825 200 150 Estimated Blood Loss 0 Other: Date of Last Bowel 09/10/18 09/10/18 Movement ADLs: Meal Record Start: 08/29/18 16: 46 Freq: Status: Complete Protocol: Created 08/29/18 16:46 System (Rec: 08/29/18 16:46 System SSU-C12) Document 08/31/18 08:14 HUK8811 (Rec: 08/31/18 08:14 FLF5924 SSU-C04) Document 08/31/18 12:24 WCR2636 (Rec: 08/31/18 12:25 TRP0888 SSU-C04) ADLs: Meal Record Start: 08/31/18 17: 06 Freq: 09,13,18 Status: Inactive Protocol: Created 08/31/18 17:06 VPN6793 (Rec: 08/31/18 17:06 OKT8754 ICU-M23) Document 08/31/18 18:00 XLO0019 (Rec: 08/31/18 20:04 KSH2561 ICU-C21) Intake and Output Start: 08/29/18 09: 06 Freq: Status: Active Protocol: Created 08/29/18 09:06 System (Rec: 08/29/18 09:06 System EDRM-C04) Document 08/30/18 00:00 ATV3993 (Rec: 08/30/18 06:50 ZMO2622 SSU-M14) Intake and Output Start: 08/29/18 16: 46 Freq: DAILY@0600,1400,2200 Status: Complete Protocol: Created 08/29/18 16:46 System (Rec: 08/29/18 16:46 System SSU-C12) Document 08/29/18 22:10 DAE1279 (Rec: 08/29/18 22:11 VJE2109 SSU-M18) Document 08/30/18 03:59 HFN5462 (Rec: 08/30/18 03:59 AMQ9926 SSU-M14) Document 08/30/18 06:34 OVC5968 (Rec: 08/30/18 06:34 XFS5278 SSU-C09) Document 08/30/18 14:16 WDN7273 (Rec: 08/30/18 14:16 OVE5841 SSU-C08) Document 08/30/18 18:30 YUR8965 (Rec: 08/30/18 22:44 SMD2847 SSU-M17) Document 08/30/18 22:44 GHA6939 (Rec: 08/30/18 22:46 EJZ6322 SSU-M17) Document 08/31/18 01:13 IZX4109 (Rec: 08/31/18 01:14 FLW6808 SSU-C03) Document 08/31/18 05:51 SPB8124 (Rec: 08/31/18 05:51 THZ3009 SSU-C03) Document 08/31/18 06:36 GJM2609 (Rec: 08/31/18 06:36 SIO5175 SSU-C03) Document 08/31/18 12:26 KJV2614 (Rec: 08/31/18 12:26 SOK8719 SSU-C04) Document 08/31/18 14:19 RWH8745 (Rec: 08/31/18 14:20 SAH4094 SSU-C04) Intake and Output Start: 08/31/18 17: 06 Freq: Q1HR Status: Active Protocol: Created 08/31/18 17:06 IPZ4740 (Rec: 08/31/18 17:06 DKC9896 ICU-M23) Document 08/31/18 18:00 XQD7090 (Rec: 08/31/18 20:04 IIG5335 ICU-C21) Document 08/31/18 19:00 PTK9059 (Rec: 09/01/18 01:29 QDN3063 ICU-C25) Document 08/31/18 20:00 ZYT2703 (Rec: 09/01/18 01:41 PEC0537 ICU-C25) Document 08/31/18 22:00 XDU5151 (Rec: 09/01/18 01:46 DNS5452 ICU-C25) Document 08/31/18 23:00 IUM2477 (Rec: 09/01/18 01:48 RHN0319 ICU-C25) Document 09/01/18 00:00 HSH0065 (Rec: 09/01/18 02:30 UIG1861 ICU-C25) Co-Sign 09/01/18 00:00 EDK8520 Document 09/01/18 01:00 AKF1591 (Rec: 09/01/18 02:57 CMX2261 ICU-C25) Document 09/01/18 02:00 UOD9239 (Rec: 09/01/18 03:00 HSL8226 ICU-C25) Document 09/01/18 03:00 CDG1988 (Rec: 09/01/18 03:07 TRH1909 ICU-C25) Document 09/01/18 04:00 ASO0357 (Rec: 09/01/18 04:17 DMG3865 ICU-C25) Document 09/01/18 05:00 NPY2353 (Rec: 09/01/18 05:13 WCH4143 ICU-C25) Document 09/01/18 06:00 GOC3207 (Rec: 09/01/18 06:45 UME8110 ICU-C25) Document 09/01/18 07:00 MAM0920 (Rec: 09/01/18 07:09 FFX1611 ICU-M23) Document 09/01/18 08:00 FWK9075 (Rec: 09/01/18 09:02 NWB5983 ICU-M23) Document 09/01/18 09:00 QUR4737 (Rec: 09/01/18 09:02 PUH6790 ICU-M23) Document 09/01/18 10:06 VSM5814 (Rec: 09/01/18 10:06 FUF4694 ICU-M23) Document 09/01/18 11:00 OFN9814 (Rec: 09/01/18 11:06 UOD1526 ICU-M23) Document 09/01/18 12:00 LCO4252 (Rec: 09/01/18 12:26 BJI5931 ICU-M23) Document 09/01/18 13:00 JHY6037 (Rec: 09/01/18 14:29 UHB0735 ICU-M23) Document 09/01/18 14:00 QFL6280 (Rec: 09/01/18 14:29 OMG5258 ICU-M23) Document 09/01/18 14:48 MYM3660 (Rec: 09/01/18 14:50 EFN7119 ICU-M23) Document 09/01/18 15:00 BHK6391 (Rec: 09/01/18 16:04 QBA3740 ICU-M23) Document 09/01/18 16:00 BQP1231 (Rec: 09/01/18 16:04 IYN5557 ICU-M23) Document 09/01/18 17:05 SVN8237 (Rec: 09/01/18 17:05 XGX8083 ICU-M23) Document 09/01/18 18:00 ZOM4039 (Rec: 09/01/18 18:04 AJP7313 ICU-M23) Document 09/01/18 20:00 EFT4621 (Rec: 09/01/18 20:25 HSS0872 ICU-M23) Document 09/01/18 21:00 PIT2487 (Rec: 09/01/18 21:04 DWM5715 ICU-M23) Document 09/01/18 22:00 IKY1519 (Rec: 09/01/18 22:13 BVZ6262 ICU-M23) Document 09/01/18 23:00 WMO9369 (Rec: 09/01/18 23:20 HYA3519 ICU-M23) Document 09/02/18 00:00 DHG9141 (Rec: 09/02/18 00:08 GPC7688 ICU-M23) Document 09/02/18 01:00 MGA2002 (Rec: 09/02/18 01:04 UAG4257 ICU-M23) Document 09/02/18 02:00 FKS4622 (Rec: 09/02/18 02:20 HLB4583 ICU-M23) Document 09/02/18 03:00 PRF3247 (Rec: 09/02/18 03:03 MYB7923 ICU-M23) Document 09/02/18 04:00 MTM4213 (Rec: 09/02/18 04:14 PJF3660 ICU-M23) Document 09/02/18 05:00 FEE0348 (Rec: 09/02/18 05:01 DUC4341 ICU-M23) Document 09/02/18 05:25 IUF3647 (Rec: 09/02/18 05:26 CEJ1100 ICU-M23) Document 09/02/18 05:28 MYA0001 (Rec: 09/02/18 05:29 HCH6074 ICU-M23) Document 09/02/18 06:00 KUK2949 (Rec: 09/02/18 06:09 XNJ4577 ICU-M23) Document 09/02/18 07:00 FVH1885 (Rec: 09/02/18 07:23 JBD0346 ICU-M23) Document 09/02/18 08:00 VSP7832 (Rec: 09/02/18 08:33 JHR8763 ICU-M23) Document 09/02/18 09:00 CGI2895 (Rec: 09/02/18 09:27 YWP2871 ICU-C06) Document 09/02/18 10:00 FNN4046 (Rec: 09/02/18 12:05 NUV0002 ICU-M23) Document 09/02/18 11:00 EJH6833 (Rec: 09/02/18 12:05 CVM8074 ICU-M23) Document 09/02/18 12:00 RRD9888 (Rec: 09/02/18 12:05 CVN4017 ICU-M23) Document 09/02/18 13:00 VNA6671 (Rec: 09/02/18 13:16 TIB1817 ICU-M23) Document 09/02/18 14:00 TNG3347 (Rec: 09/02/18 14:04 SAT9514 ICU-M23) Document 09/02/18 15:00 KQJ8675 (Rec: 09/02/18 15:30 OVS9708 ICU-C25) Document 09/02/18 16:00 VLA2031 (Rec: 09/02/18 16:29 UBY4653 ICU-M23) Document 09/02/18 17:00 AYN8126 (Rec: 09/02/18 17:14 VZL5633 ICU-M23) Document 09/02/18 18:00 SZQ3272 (Rec: 09/02/18 18:07 DQJ0585 ICU-M23) Document 09/02/18 20:00 LDL7899 (Rec: 09/02/18 20:00 SVT4598 ICU-M23) Document 09/02/18 21:00 OQI4143 (Rec: 09/02/18 21:05 BRO7184 ICU-M23) Document 09/02/18 22:00 YQN0417 (Rec: 09/02/18 22:07 WZT2299 ICU-M23) Document 09/02/18 23:00 MXE6042 (Rec: 09/02/18 23:39 NRO4600 ICU-M23) Document 09/03/18 00:00 YRJ2790 (Rec: 09/03/18 01:04 ECK7146 ICU-M23) Document 09/03/18 01:00 QSA6051 (Rec: 09/03/18 01:06 UJM8160 ICU-M23) Document 09/03/18 02:00 UAM5525 (Rec: 09/03/18 03:22 IEM5541 ICU-M23) Document 09/03/18 03:00 YZQ8959 (Rec: 09/03/18 03:22 FUE7868 ICU-M23) Document 09/03/18 04:00 AYQ0989 (Rec: 09/03/18 04:26 MDU3579 ICU-M23) Document 09/03/18 05:00 HUJ4434 (Rec: 09/03/18 05:00 KDG8861 ICU-M23) Document 09/03/18 06:00 FQZ0006 (Rec: 09/03/18 06:59 PUW7209 ICU-M23) Document 09/03/18 07:00 ENB7929 (Rec: 09/03/18 07:26 RCW6593 ICU-C06) Document 09/03/18 07:46 NPL9467 (Rec: 09/03/18 07:46 XGE6077 ICU-C06) Document 09/03/18 08:00 MPD8536 (Rec: 09/03/18 08:10 NFW6730 ICU-C06) Document 09/03/18 10:00 QTP1819 (Rec: 09/03/18 11:00 XWK1754 ICU-M23) Document 09/03/18 11:00 RRJ8924 (Rec: 09/03/18 11:50 HRQ7584 ICU-C06) Document 09/03/18 13:00 XZA5924 (Rec: 09/03/18 14:04 AZI2520 ICU-C06) Document 09/03/18 14:00 OVJ1645 (Rec: 09/03/18 15:51 RZS2898 ICU-C06) Document 09/03/18 15:00 SZC9974 (Rec: 09/03/18 15:53 ZZI6701 ICU-C06) Document 09/03/18 20:28 CYL9888 (Rec: 09/03/18 20:28 PQE3298 ICU-M23) Document 09/03/18 23:58 BIL9538 (Rec: 09/03/18 23:58 NNC4463 ICU-M23) Document 09/04/18 02:00 ZCZ4399 (Rec: 09/04/18 02:09 GFL9246 ICU-M23) Document 09/04/18 03:00 LPS5804 (Rec: 09/04/18 03:13 TWV1188 ICU-C06) Document 09/04/18 04:00 SQC3506 (Rec: 09/04/18 04:00 DZM8161 ICU-M23) Document 09/04/18 05:00 IGT2042 (Rec: 09/04/18 05:13 UEU5386 ICU-M23) Document 09/04/18 06:00 QAE0634 (Rec: 09/04/18 06:04 CZZ6723 ICU-M23) Document 09/04/18 06:11 MGN2046 (Rec: 09/04/18 06:11 ZCH6233 ICU-M23) Document 09/04/18 08:00 WBW1844 (Rec: 09/04/18 09:23 MAI3708 ICU-C12) Document 09/04/18 09:00 EWD0974 (Rec: 09/04/18 09:23 TMP1319 ICU-C12) Document 09/04/18 10:00 CCS6218 (Rec: 09/04/18 10:16 BNK4203 ICU-M23) Document 09/04/18 11:00 DQM1465 (Rec: 09/04/18 11:45 RWV2134 ICU-M23) Document 09/04/18 12:00 OTP6710 (Rec: 09/04/18 12:47 PCE0186 ICU-M23) Document 09/04/18 13:00 HGW4724 (Rec: 09/04/18 13:01 CDS1721 ICU-C12) Document 09/04/18 14:29 GFJ6743 (Rec: 09/04/18 14:29 HDM2832 ICU-C12) Document 09/04/18 15:00 HVG8116 (Rec: 09/04/18 16:31 GWK6766 ICU-C12) Document 09/04/18 16:00 URX5779 (Rec: 09/04/18 17:00 SXI5232 ICU-C12) Co-Sign 09/04/18 16:00 TXR9547 Document 09/04/18 17:00 TST1758 (Rec: 09/04/18 17:23 AGQ0727 ICU-C12) Document 09/04/18 18:00 CCZ4986 (Rec: 09/04/18 18:32 VAQ8014 ICU-C12) Document 09/04/18 19:37 XYI2932 (Rec: 09/04/18 19:37 JTP5735 ICU-M23) Document 09/04/18 21:00 CYV4733 (Rec: 09/04/18 21:11 HTQ6687 ICU-M23) Document 09/04/18 22:00 DUY7477 (Rec: 09/04/18 22:44 MLR5661 ICU-M23) Document 09/04/18 23:00 UZO6727 (Rec: 09/04/18 23:12 RAC8394 ICU-C06) Document 09/05/18 00:00 PBY7521 (Rec: 09/05/18 01:12 VZY9697 ICU-M23) Document 09/05/18 01:00 XZZ0801 (Rec: 09/05/18 01:12 NPD4334 ICU-M23) Document 09/05/18 01:49 CGJ9871 (Rec: 09/05/18 01:49 FPS9363 ICU-M23) Document 09/05/18 02:00 RLV1640 (Rec: 09/05/18 02:05 KHE5145 ICU-M23) Document 09/05/18 03:00 XGX2387 (Rec: 09/05/18 03:10 DHV6368 ICU-M23) Document 09/05/18 04:00 QTP5697 (Rec: 09/05/18 04:22 OTB1900 ICU-C06) Document 09/05/18 05:00 LPN0359 (Rec: 09/05/18 05:18 SLQ0387 ICU-M23) Document 09/05/18 06:00 QWD8401 (Rec: 09/05/18 06:08 ACI1722 ICU-C06) Document 09/05/18 06:55 NXR5249 (Rec: 09/05/18 06:55 UVU7663 ICU-C06) Document 09/05/18 07:00 RRF9496 (Rec: 09/05/18 07:22 NLY2540 ICU-C12) Document 09/05/18 08:00 PXB8447 (Rec: 09/05/18 09:09 PUP8083 ICU-C12) Document 09/05/18 09:00 KLP4469 (Rec: 09/05/18 09:16 JNH0480 ICU-C12) Document 09/05/18 10:00 UCW5968 (Rec: 09/05/18 10:04 KYH2465 ICU-M23) Document 09/05/18 11:00 OYQ3979 (Rec: 09/05/18 11:45 DPH4889 ICU-C12) Document 09/05/18 12:00 YCA4158 (Rec: 09/05/18 12:48 RMJ2450 ICU-C12) Document 09/05/18 13:00 UPY2848 (Rec: 09/05/18 13:16 NMQ8005 ICU-C12) Document 09/05/18 14:00 OHE2240 (Rec: 09/05/18 14:14 AEQ7601 ICU-C12) Document 09/05/18 15:00 PXS4942 (Rec: 09/05/18 15:43 AIW8283 ICU-C12) Document 09/05/18 16:00 JEW2486 (Rec: 09/05/18 16:37 YWM1838 ICU-C12) Document 09/05/18 17:00 PUZ3557 (Rec: 09/05/18 17:58 WUQ3429 ICU-C12) Document 09/05/18 18:00 MMH8209 (Rec: 09/05/18 18:21 WZK0570 ICU-M23) Document 09/05/18 19:48 CES4931 (Rec: 09/05/18 19:48 KIS9435 ICU-M23) Document 09/05/18 19:54 VLY6412 (Rec: 09/05/18 20:06 ATF4933 ICU-C25) Document 09/05/18 21:00 JKA5683 (Rec: 09/05/18 21:20 BIZ5059 ICU-M23) Document 09/05/18 21:52 CMM5914 (Rec: 09/05/18 21:52 OMX0295 ICU-M23) Document 09/05/18 23:00 UPI1224 (Rec: 09/05/18 23:08 NQJ1238 ICU-C12) Document 09/05/18 23:48 ZIB7560 (Rec: 09/05/18 23:48 EFP1812 ICU-M23) Document 09/06/18 01:00 FQS0727 (Rec: 09/06/18 01:04 TUA3903 ICU-C12) Document 09/06/18 02:00 FXF6920 (Rec: 09/06/18 02:09 JBD4986 ICU-C12) Document 09/06/18 04:00 LPV8415 (Rec: 09/06/18 04:17 UTH9587 ICU-M23) Document 09/06/18 05:00 BYG4750 (Rec: 09/06/18 05:06 FGW6051 ICU-M23) Document 09/06/18 05:07 DWG1511 (Rec: 09/06/18 05:07 DFB1966 ICU-M23) Document 09/06/18 06:35 JLH7252 (Rec: 09/06/18 06:35 QPF8297 ICU-M23) Document 09/06/18 07:00 PUF3609 (Rec: 09/06/18 09:01 MFI1380 ICU-M23) Document 09/06/18 08:00 TUO1266 (Rec: 09/06/18 09:01 UPZ2718 ICU-M23) Document 09/06/18 09:00 MMF5606 (Rec: 09/06/18 09:01 RMM3451 ICU-M23) Document 09/06/18 10:00 HIM9690 (Rec: 09/06/18 10:16 QLJ5888 ICU-C12) Document 09/06/18 11:00 FXH4554 (Rec: 09/06/18 11:48 ENC9516 ICU-C12) Document 09/06/18 12:00 CKI0585 (Rec: 09/06/18 12:20 DVE9425 ICU-C12) Document 09/06/18 13:00 FOW3849 (Rec: 09/06/18 13:50 JJP7860 ICU-C11) Document 09/06/18 13:00 ZDD8839 (Rec: 09/06/18 13:57 DIY2489 ICU-L03) Document 09/06/18 15:00 SFZ6130 (Rec: 09/06/18 15:13 PRX7310 ICU-M23) Document 09/06/18 16:00 RZK1302 (Rec: 09/06/18 16:40 VFD4885 ICU-C12) Document 09/06/18 17:14 SPK4119 (Rec: 09/06/18 17:14 NYB4220 ICU-C12) Document 09/06/18 18:00 GCW2356 (Rec: 09/06/18 18:01 VPP3069 ICU-M23) Document 09/06/18 18:27 TSN6790 (Rec: 09/06/18 18:27 KWF6110 ICU-M23) Document 09/06/18 18:27 TWC1956 (Rec: 09/06/18 18:28 JVI4832 ICU-M23) Document 09/06/18 18:29 MEI8730 (Rec: 09/06/18 18:30 WDQ1620 ICU-M23) Document 09/06/18 19:00 ISF9301 (Rec: 09/06/18 19:21 MOD9149 ICU-M23) Document 09/06/18 22:00 EWH9073 (Rec: 09/06/18 22:33 LIL9062 ICU-M23) Document 09/06/18 23:00 JEQ0003 (Rec: 09/06/18 23:46 BRS3690 ICU-M23) Document 09/06/18 23:55 XTG8704 (Rec: 09/06/18 23:56 QLA3598 ICU-M23) Document 09/07/18 00:58 SOL0798 (Rec: 09/07/18 00:58 VSS0016 ICU-M23) Document 09/07/18 02:00 EOD9225 (Rec: 09/07/18 02:58 BTN7265 ICU-M23) Document 09/07/18 02:59 NMW4904 (Rec: 09/07/18 02:59 OBZ8828 ICU-M23) Document 09/07/18 04:00 BVY7515 (Rec: 09/07/18 05:04 TYK7880 ICU-C12) Document 09/07/18 05:00 DHP9459 (Rec: 09/07/18 05:05 OHB9248 ICU-C12) Document 09/07/18 06:00 UFK8015 (Rec: 09/07/18 06:22 WWV6169 ICU-M23) Document 09/07/18 06:59 AHW1966 (Rec: 09/07/18 06:59 SAT2634 ICU-M23) Document 09/07/18 07:00 SUN2670 (Rec: 09/07/18 07:01 IMI4599 ICU-M23) Document 09/07/18 08:00 SAV2277 (Rec: 09/07/18 08:14 UIX9275 ICU-M23) Document 09/07/18 09:00 VDD7544 (Rec: 09/07/18 09:38 OTV6463 ICU-M23) Document 09/07/18 10:00 DDJ7637 (Rec: 09/07/18 11:01 JIJ7769 ICU-M23) Document 09/07/18 11:00 UDS3095 (Rec: 09/07/18 11:01 QIP0170 ICU-M23) Document 09/07/18 13:00 WEV4647 (Rec: 09/07/18 13:15 MXC5894 ICU-M23) Document 09/07/18 14:00 KXE7620 (Rec: 09/07/18 16:39 RFO3193 ICU-M23) Document 09/07/18 15:00 XBM2094 (Rec: 09/07/18 16:39 MMH2222 ICU-M23) Document 09/07/18 16:00 BZY8434 (Rec: 09/07/18 16:39 OXG5771 ICU-M23) Document 09/07/18 16:52 LVW1822 (Rec: 09/07/18 16:52 ZRG9704 ICU-M23) Document 09/07/18 17:00 BYE0406 (Rec: 09/07/18 18:18 DMY2727 ICU-M23) Document 09/07/18 18:00 ZHH4252 (Rec: 09/07/18 18:18 BUX6639 ICU-M23) Document 09/07/18 18:19 QQM1209 (Rec: 09/07/18 18:19 LOX6292 ICU-M23) Document 09/07/18 18:23 GZI9088 (Rec: 09/07/18 18:23 COM6678 ICU-M23) Document 09/07/18 19:00 NYL9812 (Rec: 09/07/18 19:49 RCR3063 ICU-M23) Document 09/07/18 19:50 RAS2942 (Rec: 09/07/18 20:03 WYL9492 ICU-M23) Document 09/07/18 21:00 QRC6706 (Rec: 09/07/18 21:18 BQI9290 ICU-M23) Document 09/07/18 21:54 SLF7986 (Rec: 09/07/18 21:54 ANE4965 ICU-M23) Document 09/07/18 23:00 LGW6864 (Rec: 09/07/18 23:26 EEK2477 ICU-M23) Document 09/08/18 00:00 ULF4886 (Rec: 09/08/18 01:06 ORK5905 ICU-C12) Document 09/08/18 01:00 ERR1277 (Rec: 09/08/18 01:07 SZP0876 ICU-C12) Document 09/08/18 02:00 OSF2469 (Rec: 09/08/18 02:27 BPR8833 ICU-M23) Document 09/08/18 03:00 ICD7779 (Rec: 09/08/18 03:06 YOO7483 ICU-C12) Document 09/08/18 04:00 COP3505 (Rec: 09/08/18 04:58 NYY4413 ICU-M23) Document 09/08/18 04:59 IOO9661 (Rec: 09/08/18 04:59 HJF2326 ICU-M23) Document 09/08/18 05:08 NOW0653 (Rec: 09/08/18 05:08 WIC6838 ICU-M23) Document 09/08/18 05:47 OKM3957 (Rec: 09/08/18 05:50 DIS8763 ICU-M23) Document 09/08/18 07:00 UPT6079 (Rec: 09/08/18 09:42 FRL4969 ICU-C06) Document 09/08/18 08:00 UDQ4033 (Rec: 09/08/18 10:46 SHD7277 ICU-C06) Document 09/08/18 09:00 WDG1692 (Rec: 09/08/18 10:54 ZVB3495 ICU-C06) Document 09/08/18 10:00 LMF2827 (Rec: 09/08/18 10:54 LIK9780 ICU-C06) Document 09/08/18 10:54 FVL6209 (Rec: 09/08/18 10:54 SEN7073 ICU-C06) Document 09/08/18 12:00 WHO9753 (Rec: 09/08/18 13:24 UDR1045 ICU-C06) Document 09/08/18 13:00 MXS5545 (Rec: 09/08/18 13:24 VWX6898 ICU-C06) Document 09/08/18 17:00 CIL9441 (Rec: 09/08/18 17:57 DZF0326 ICU-C12) Document 09/08/18 18:00 SQZ6988 (Rec: 09/08/18 18:09 JLQ2277 ICU-C12) Document 09/08/18 19:00 QAO9307 (Rec: 09/08/18 19:10 VKA5403 ICU-M23) Document 09/08/18 20:00 VWP3239 (Rec: 09/08/18 20:20 SGW1020 ICU-M23) Document 09/08/18 20:40 ZOH9075 (Rec: 09/08/18 20:41 HKB6623 ICU-C25) Document 09/08/18 20:52 YPZ4143 (Rec: 09/08/18 20:52 YFS0756 ICU-C25) Document 09/08/18 21:41 IPB3334 (Rec: 09/08/18 21:43 NRT6120 ICU-M23) Document 09/08/18 23:00 QQA0099 (Rec: 09/08/18 23:37 JDO0052 ICU-C25) Document 09/09/18 00:00 NFS6480 (Rec: 09/09/18 00:14 DBZ1645 ICU-M23) Document 09/09/18 01:00 FUH5412 (Rec: 09/09/18 01:14 CHQ5787 ICU-C25) Document 09/09/18 01:58 UUJ7835 (Rec: 09/09/18 01:59 DJV0811 ICU-C25) Document 09/09/18 03:00 GHN9442 (Rec: 09/09/18 03:18 VLO4420 ICU-C25) Document 09/09/18 04:00 WCG6662 (Rec: 09/09/18 04:25 LKD3258 ICU-C25) Document 09/09/18 05:00 EHU6750 (Rec: 09/09/18 05:49 IWL1802 ICU-C25) Document 09/09/18 06:00 KLV8936 (Rec: 09/09/18 06:03 IMZ8152 ICU-M23) Document 09/09/18 07:00 JBT9340 (Rec: 09/09/18 08:57 GGV5045 ICU-C15) Document 09/09/18 08:00 AIK7706 (Rec: 09/09/18 09:06 TRA0282 ICU-C15) Document 09/09/18 08:00 HQR0946 (Rec: 09/09/18 18:34 [id number] ICU-M23) Document 09/09/18 09:00 UIZ1950 (Rec: 09/09/18 09:06 [id number] ICU-C15) Document 09/09/18 10:00 WSG7304 (Rec: 09/09/18 13:20 [id number] ICU-C15) Document 09/09/18 11:00 [id number] (Rec: 09/09/18 13:20 [id number] ICU-C15) Document 09/09/18 12:00 OKG2860 (Rec: 09/09/18 13:20 [id number] ICU-C15) Document 09/09/18 13:00 EDF8989 (Rec: 09/09/18 13:20 [id number] ICU-C15) Document 09/09/18 14:49 ELJ1096 (Rec: 09/09/18 14:49 [id number] ICU-M23) Document 09/09/18 15:00 BNU2532 (Rec: 09/09/18 16:13 [id number] ICU-M23) Document 09/09/18 16:00 DFU6436 (Rec: 09/09/18 16:13 [id number] ICU-M23) Document 09/09/18 17:00 AQA8404 (Rec: 09/09/18 18:32 [id number] ICU-M23) Document 09/09/18 18:00 VZY6065 (Rec: 09/09/18 18:32 [id number] ICU-M23) Document 09/09/18 19:00 [id number] (Rec: 09/09/18 19:51 RDG1041 ICU-C14) Document 09/09/18 19:51 YKP6005 (Rec: 09/09/18 19:53 [id number] ICU-C14) Document 09/09/18 21:00 IYT8964 (Rec: 09/09/18 21:31 [id number] ICU-M23) Document 09/09/18 21:55 DRC6538 (Rec: 09/09/18 21:57 NJZ7947 ICU-C14) Document 09/09/18 23:00 CFT6541 (Rec: 09/09/18 23:49 [id number] ICU-C14) Document 09/09/18 23:50 NRE8295 (Rec: 09/09/18 23:53 QUG0083 ICU-C14) Document 09/10/18 00:55 PFW4625 (Rec: 09/10/18 00:57 WCC7463 ICU-C14) Document 09/10/18 02:00 ROT9912 (Rec: 09/10/18 02:03 RJH1433 ICU-C14) Document 09/10/18 02:49 HDT1153 (Rec: 09/10/18 02:50 HDR3017 ICU-C14) Document 09/10/18 03:59 MYD4956 (Rec: 09/10/18 04:00 GWA3726 ICU-M23) Document 09/10/18 05:00 MNZ7223 (Rec: 09/10/18 05:24 BXS4680 ICU-M23) Document 09/10/18 05:58 WZI5777 (Rec: 09/10/18 05:59 KQE7952 ICU-C14) Document 09/10/18 07:00 YKT7060 (Rec: 09/10/18 07:42 IOP6292 ICU-C12) Document 09/10/18 08:00 ZUP7383 (Rec: 09/10/18 08:55 PAK7787 ICU-C12) Document 09/10/18 09:00 LLX7202 (Rec: 09/10/18 09:49 KUF1286 ICU-C12) Document 09/10/18 09:59 ZYO6463 (Rec: 09/10/18 10:00 VQN1431 ICU-C12) Document 09/10/18 11:00 YYO3742 (Rec: 09/10/18 11:12 KTW1317 ICU-C12) Document 09/10/18 12:00 VHY3722 (Rec: 09/10/18 12:57 GEV2361 ICU-C12) Document 09/10/18 13:00 CUI8545 (Rec: 09/10/18 13:37 [id number] ICU-C12) Document 09/10/18 14:00 BPB7486 (Rec: 09/10/18 16:30 OMT1657 ICU-C12) Document 09/10/18 15:00 OHD6936 (Rec: 09/10/18 16:35 [id number] ICU-C12) Document 09/10/18 16:00 UVN9726 (Rec: 09/10/18 16:51 AHK9165 ICU-C12) Document 09/10/18 17:00 TTQ2855 (Rec: 09/10/18 17:06 RDK8820 ICU-C12) Document 09/10/18 18:00 PHQ2585 (Rec: 09/10/18 18:19 KAW5829 ICU-M23) Document 09/10/18 18:30 UYD0896 (Rec: 09/10/18 19:05 KOQ6052 ICU-C12) Document 09/10/18 19:00 UEM5901 (Rec: 09/10/18 21:56 PQN8570 ICU-C06) Document 09/10/18 20:00 RVQ2609 (Rec: 09/10/18 21:56 FNW3608 ICU-C06) Document 09/10/18 21:00 KHV0970 (Rec: 09/10/18 21:56 TBA4066 ICU-C06) Document 09/10/18 23:00 LJW2225 (Rec: 09/10/18 23:06 PCV7646 ICU-M23) Document 09/11/18 00:00 OKE5430 (Rec: 09/11/18 00:15 JZE1287 ICU-C06) Document 09/11/18 01:00 WIZ8540 (Rec: 09/11/18 01:00 WUJ4797 ICU-M23) Document 09/11/18 02:00 VUJ2884 (Rec: 09/11/18 02:35 URL4921 ICU-C06) Document 09/11/18 02:56 OQL0280 (Rec: 09/11/18 02:57 GKY5345 ICU-M23) Document 09/11/18 04:00 GHD5026 (Rec: 09/11/18 04:13 [id number] ICU-C06) Document 09/11/18 05:00 LMM0301 (Rec: 09/11/18 05:07 [id number] ICU-M23) Document 09/11/18 06:00 GLK4030 (Rec: 09/11/18 06:13 CRR9041 ICU-C06) Document 09/11/18 06:22 TIU2931 (Rec: 09/11/18 06:22 [id number] ICU-M23) Document 09/11/18 08:00 ZES2756 (Rec: 09/11/18 09:10 [id number] ICU-C12) Document 09/11/18 09:00 HSH0342 (Rec: 09/11/18 10:51 HHB5039 ICU-C12) Document 09/11/18 10:00 HYS0996 (Rec: 09/11/18 10:52 OUH0571 ICU-C12) Document 09/11/18 10:52 GUH4979 (Rec: 09/11/18 10:52 WMG8217 ICU-C12) Document 09/11/18 11:45 JJJ2772 (Rec: 09/11/18 11:45 FVP0699 ICU-C12) Labs: Laboratory Results - last 24 hr 09/10/18 09/10/18 09/10/18 15:25 21:00 21:00 WBC RBC Hgb Hct MCV MCH MCHC RDW Plt Count MPV Neut % (Auto) Lymph % (Auto) Johnson % (Auto) Eos % (Auto) Baso % (Auto) Absolute Neuts (auto) Absolute Lymphs (auto) Absolute Monos (auto) Absolute Eos (auto) Absolute Basos (auto) Absolute Nucleated RBC Nucleated RBC % Patient Temperature Not Reportable ABG pH 7.52 H ABG pH (Temp Correct) Not Reportable ABG pCO2 36 ABG pCO2 (Temp Corrct Not Reportable ABG pO2 72 L ABG pO2 (Temp Correct Not Reportable ABG HCO3 29.8 ABG O2 Saturation 96.6 ABG Base Excess 6.4 H Respiration Rate Not Reportable O2 Delivery Device vent Ventilator Type Not Reportable Vent Mode spont FiO2 35 Inspiratory Time Not Reportable PEEP 8 Pressure Support 10 Pressure Control Not Reportable EPAP Not Reportable IPAP Not Reportable BiPAP Not Reportable Sodium Potassium Chloride Carbon Dioxide Anion Gap BUN Creatinine Est GFR ( Amer) Est GFR (Non-Af Amer) BUN/Creatinine Ratio Glucose Lactic Acid 1.6 Uric Acid Calcium Phosphorus Magnesium Total Bilirubin AST ALT Alkaline Phosphatase Troponin I B-Natriuretic Peptide 687 H Total Protein Albumin Globulin Albumin/Globulin Ratio Urine Color Urine Appearance Urine pH Ur Specific Lovejoy Urine Protein Urine Ketones Urine Blood Urine Nitrate Urine Bilirubin Urine Urobilinogen Ur Leukocyte Esterase Urine WBC (Auto) Urine RBC (Auto) Urine Bacteria Urine Glucose Urine Ascorbic Acid 09/10/18 09/10/18 09/10/18 21:00 21:00 21:10 WBC RBC Hgb Hct MCV MCH MCHC RDW Plt Count MPV Neut % (Auto) Lymph % (Auto) Johnson % (Auto) Eos % (Auto) Baso % (Auto) Absolute Neuts (auto) Absolute Lymphs (auto) Absolute Monos (auto) Absolute Eos (auto) Absolute Basos (auto) Absolute Nucleated RBC Nucleated RBC % Patient Temperature Not Reportable ABG pH 7.51 H ABG pH (Temp Correct) Not Reportable ABG pCO2 34 L ABG pCO2 (Temp Corrct Not Reportable ABG pO2 91 ABG pO2 (Temp Correct Not Reportable ABG HCO3 28.3 ABG O2 Saturation 99.5 H ABG Base Excess 4.3 H Respiration Rate Not Reportable O2 Delivery Device vent Ventilator Type Not Reportable Vent Mode Not Reportable FiO2 35 Inspiratory Time Not Reportable PEEP Not Reportable Pressure Support Not Reportable Pressure Control Not Reportable EPAP Not Reportable IPAP Not Reportable BiPAP Not Reportable Sodium 141 Potassium 3.3 L Chloride 108 Carbon Dioxide 28 Anion Gap 5 BUN 17 Creatinine 0.45 L Est GFR ( Amer) 165.3 Est GFR (Non-Af Amer) 136.6 BUN/Creatinine Ratio 37.8 H Glucose 160 H Lactic Acid Uric Acid 1.5 L Calcium 6.9 L Phosphorus 2.3 L Magnesium 1.8 L Total Bilirubin 0.30 AST 20 ALT 18 Alkaline Phosphatase 74 Troponin I 0.06 H* B-Natriuretic Peptide Total Protein 4.2 L Albumin 2.1 L Globulin 2.1 Albumin/Globulin Ratio 1.0 Urine Color Urine Appearance Urine pH Ur Specific [place] Urine Protein Urine Ketones Urine Blood Urine Nitrate Urine Bilirubin Urine Urobilinogen Ur Leukocyte Esterase Urine WBC (Auto) Urine RBC (Auto) Urine Bacteria Urine Glucose Urine Ascorbic Acid 09/11/18 09/11/18 09/11/18 00:54 02:53 04:20 WBC 26.6 H RBC 3.04 L Hgb 8.3 L Hct 26 L MCV 85 MCH 28 MCHC 32 RDW 16 H Plt Count 219 MPV 8.3 Neut % (Auto) 89.5 Lymph % (Auto) 3.5 Johnson % (Auto) 6.7 Eos % (Auto) 0.1 Baso % (Auto) 0.2 Absolute Neuts (auto) 23.8 H Absolute Lymphs (auto) 0.9 L Absolute Monos (auto) 1.8 H Absolute Eos (auto) 0.0 Absolute Basos (auto) 0.0 Absolute Nucleated RBC 0.0 Nucleated RBC % 0.0 Patient Temperature ABG pH ABG pH (Temp Correct) ABG pCO2 ABG pCO2 (Temp Corrct ABG pO2 ABG pO2 (Temp Correct ABG HCO3 ABG O2 Saturation ABG Base Excess Respiration Rate O2 Delivery Device Ventilator Type Vent Mode FiO2 Inspiratory Time PEEP Pressure Support Pressure Control EPAP IPAP BiPAP Sodium Potassium Chloride Carbon Dioxide Anion Gap BUN Creatinine Est GFR ( Amer) Est GFR (Non-Af Amer) BUN/Creatinine Ratio Glucose Lactic Acid Uric Acid Calcium Phosphorus Magnesium Total Bilirubin AST ALT Alkaline Phosphatase Troponin I 0.05 H* B-Natriuretic Peptide Total Protein Albumin Globulin Albumin/Globulin Ratio Urine Color Yellow Urine Appearance Cloudy Urine pH 7.0 Ur Specific [place] 1.024 Urine Protein 1+(30 mg/dl) A Urine Ketones Negative Urine Blood Negative Urine Nitrate Negative Urine Bilirubin Negative Urine Urobilinogen Negative Ur Leukocyte Esterase Negative Urine WBC (Auto) Absent Urine RBC (Auto) 3+(>10/hpf) A Urine Bacteria Absent Urine Glucose Negative Urine Ascorbic Acid * A 09/11/18 09/11/18 09/11/18 05:30 05:30 08:50 WBC 24.5 H RBC 2.88 L Hgb 7.9 L Hct 25 L MCV 85 MCH 27 MCHC 32 RDW 16 H Plt Count 209 MPV 8.3 Neut % (Auto) 90.7 Lymph % (Auto) 2.5 Johnson % (Auto) 6.5 Eos % (Auto) 0.3 Baso % (Auto) 0.0 Absolute Neuts (auto) 22.2 H Absolute Lymphs (auto) 0.6 L Absolute Monos (auto) 1.6 H Absolute Eos (auto) 0.1 Absolute Basos (auto) 0.0 Absolute Nucleated RBC 0.0 Nucleated RBC % 0.0 Patient Temperature ABG pH ABG pH (Temp Correct) ABG pCO2 ABG pCO2 (Temp Corrct ABG pO2 ABG pO2 (Temp Correct ABG HCO3 ABG O2 Saturation ABG Base Excess Respiration Rate O2 Delivery Device Ventilator Type Vent Mode FiO2 Inspiratory Time PEEP Pressure Support Pressure Control EPAP IPAP BiPAP Sodium 140 Potassium 3.7 Chloride 110 Carbon Dioxide 27 Anion Gap 3 BUN 15 Creatinine 0.40 L Est GFR ( Amer) 189.3 Est GFR (Non-Af Amer) 156.5 BUN/Creatinine Ratio 37.5 H Glucose 183 H Lactic Acid Uric Acid Calcium 7.3 L Phosphorus 3.0 Magnesium 2.1 Total Bilirubin AST ALT Alkaline Phosphatase Troponin I 0.05 H* B-Natriuretic Peptide Total Protein Albumin Globulin Albumin/Globulin Ratio Urine Color Urine Appearance Urine pH Ur Specific [place] Urine Protein Urine Ketones Urine Blood Urine Nitrate Urine Bilirubin Urine Urobilinogen Ur Leukocyte Esterase Urine WBC (Auto) Urine RBC (Auto) Urine Bacteria Urine Glucose Urine Ascorbic Acid 09/11/18 11:15 WBC RBC Hgb Hct MCV MCH MCHC RDW Plt Count MPV Neut % (Auto) Lymph % (Auto) Johnson % (Auto) Eos % (Auto) Baso % (Auto) Absolute Neuts (auto) Absolute Lymphs (auto) Absolute Monos (auto) Absolute Eos (auto) Absolute Basos (auto) Absolute Nucleated RBC Nucleated RBC % Patient Temperature Not Reportable ABG pH 7.48 H ABG pH (Temp Correct) Not Reportable ABG pCO2 34 L ABG pCO2 (Temp Corrct Not Reportable ABG pO2 76 L ABG pO2 (Temp Correct Not Reportable ABG HCO3 26.6 ABG O2 Saturation 98.1 H ABG Base Excess 2.2 H Respiration Rate Not Reportable O2 Delivery Device Ventilator Type Not Reportable Vent Mode cpap FiO2 35 Inspiratory Time 10 PEEP 8 Pressure Support Not Reportable Pressure Control Not Reportable EPAP Not Reportable IPAP Not Reportable BiPAP Not Reportable Sodium Potassium Chloride Carbon Dioxide Anion Gap BUN Creatinine Est GFR ( Amer) Est GFR (Non-Af Amer) BUN/Creatinine Ratio Glucose Lactic Acid Uric Acid Calcium Phosphorus Magnesium Total Bilirubin AST ALT Alkaline Phosphatase Troponin I B-Natriuretic Peptide Total Protein Albumin Globulin Albumin/Globulin Ratio Urine Color Urine Appearance Urine pH Ur Specific [place] Urine Protein Urine Ketones Urine Blood Urine Nitrate Urine Bilirubin Urine Urobilinogen Ur Leukocyte Esterase Urine WBC (Auto) Urine RBC (Auto) Urine Bacteria Urine Glucose Urine Ascorbic Acid Nutrition: TF- Jevity at 70cc/h Impression: 73 F with prolonged intubation/mechanical ventilation admitted on perforated sigmoid colon in the setting of diverticultis Plan: # Ex-lap x 3 for perforated sigmoid colon diverticulitis # Sepsis/septic shock-resolved # Acute respiratory failure, now prolonged intubation and mechanical ventilation # Progressive leukocytosis- non toxic appearance # Respiratory alkalosis due to tachypnea # anasarca, pleural effusion # Critical illness polyneuromyopathy - Surgical management as per Dr. Sanchez - Continue with zosyn and antifungal x 14 days - Blood cultures x 2 09/10- pending - TF at goal - Keep on PS if tolerated, currently on 10. Will hold off on trach plans for 48 hours for now - Precedex gtt for anxiety. Will start seroquel - prn oxycodone for pain control - albumin bolus followed by lasix daily x 3 doses - Considering the persistent tachypnea, proximal muscle weakness, I recommend tracheostomy due to concerns of difficulty to weane mechanical ventilation. ENT consult requested for tracheostomy tomorrow. Will discuss with family. PPX DVT- SQH GI- H2B Prognosis: guarded/critical Code: Full Dispo: Monitor in MICU Critical Care Time: 35 minutes
[2018-09-11] MEDS ORDERED: Propofol* 100 ML ONE (12:50)
[2018-09-11 13:24] LABS: Hematocrit 25 % (35-47); Hemoglobin 8.1 g/dL (12.0-16.0); Mean Corpuscular HGB Conc 33 g/dL (31-36); Mean Corpuscular Hemoglobin 28 pg (27-31); Mean Corpuscular Volume 86 fL (80-97); Mean Platelet Volume 8.5 fL (7.4-10.4); Platelet Count 231 10^3/uL (150-450); Red Cell Distribution Width 16 % (10.5-15); White Blood Count 27.9 10^3/uL (3.5-10.8)
[2018-09-11 13:30] LABS: ABS Basophils 0.1 10^3/ul (0-0.2); ABS Lymphocytes 0.5 10^3/ul (1.0-4.8); ABS Monocytes 1.7 10^3/ul (0-0.8); ABS Neutrophils 25.6 10^3/ul (1.5-7.7); Eosinophil % 0.1 %; Lymphocyte % 1.9 %
[2018-09-11 13:38] LABS: INR 1.03 (0.82-1.09)
[2018-09-11] MEDS: Anidulafungin* 100 MG in NS 0.9% 100 ML* 100 ML IVPB SCH (14:00)
--- NOTE | 2018-09-11 14:49 | PN ---
Progress Note - Progress Note Date of Service: 09/11/18 SOAP: Subjective: Remains on ventilator but is awake and alert Objective: Temp Pulse Resp BP Pulse Ox 99.1 F 87 33 139/68 96 09/11/18 14:15 09/11/18 14:15 09/11/18 14:00 09/11/18 14:00 09/11/18 14:15 Intake & Output 09/09/18 09/10/18 09/11/18 09/12/18 06:59 06:59 06:59 06:59 Intake Total 668 1272 4301 1386 Output Total 1275 1595 3090 3750 Balance -602 -012 7258 -2141 Weight 169 lb 1.6 oz 171 lb 13.225 oz Intake: IV Fluids 873 844 3678 821 ABX - ZOSYN 100 100 Albumin 200 Anidulafungin 0 NS 103 011 0396 71 kcl 200 potassium Phosphate 259 250 IVPB 485 107 340 ABX - ZOSYN 351 107 110 Albumin 100 Anidulafungin 134 130 Medicated IV 108 7 CC - Dexmedetomidine/ 58 Precedex GEN - Magnesium 50 propofol 7 Oral 0 Tube Feeding 895 1610 528 Tube Feeding Flush Amount 65 30 NG Tube Irrigate Amount 0 Output: NG Tube Drainage Amount 0 Wound Vac 100 0 Urine 0 Frost 261 613 0667 3600 Liquid Stool 75 Colostomy 350 825 200 150 Estimated Blood Loss 0 Other: Date of Last Bowel 09/10/18 09/10/18 Movement PEX: Comfortable Abd is soft and slightly distended. Bowel sounds decreased throughout. Wound vac in place Ostomy pink with soft brown stool in bag Laboratory Results - last 24 hr 09/10/18 09/10/18 09/10/18 15:25 21:00 21:00 WBC RBC Hgb Hct MCV MCH MCHC RDW Plt Count MPV Neut % (Auto) Lymph % (Auto) [place] % (Auto) Eos % (Auto) Baso % (Auto) Absolute Neuts (auto) Absolute Lymphs (auto) Absolute Monos (auto) Absolute Eos (auto) Absolute Basos (auto) Absolute Nucleated RBC Nucleated RBC % INR (Anticoag Therapy) Patient Temperature Not Reportable ABG pH 7.52 H ABG pH (Temp Correct) Not Reportable ABG pCO2 36 ABG pCO2 (Temp Corrct Not Reportable ABG pO2 72 L ABG pO2 (Temp Correct Not Reportable ABG HCO3 29.8 ABG O2 Saturation 96.6 ABG Base Excess 6.4 H Respiration Rate Not Reportable O2 Delivery Device vent Ventilator Type Not Reportable Vent Mode spont FiO2 35 Inspiratory Time Not Reportable PEEP 8 Pressure Support 10 Pressure Control Not Reportable EPAP Not Reportable IPAP Not Reportable BiPAP Not Reportable Sodium Potassium Chloride Carbon Dioxide Anion Gap BUN Creatinine Est GFR ( Amer) Est GFR (Non-Af Amer) BUN/Creatinine Ratio Glucose Lactic Acid 1.6 Uric Acid Calcium Phosphorus Magnesium Total Bilirubin AST ALT Alkaline Phosphatase Troponin I B-Natriuretic Peptide 687 H Total Protein Albumin Globulin Albumin/Globulin Ratio Urine Color Urine Appearance Urine pH Ur Specific [place] Urine Protein Urine Ketones Urine Blood Urine Nitrate Urine Bilirubin Urine Urobilinogen Ur Leukocyte Esterase Urine WBC (Auto) Urine RBC (Auto) Urine Bacteria Urine Glucose Urine Ascorbic Acid 09/10/18 09/10/18 09/10/18 21:00 21:00 21:10 WBC RBC Hgb Hct MCV MCH MCHC RDW Plt Count MPV Neut % (Auto) Lymph % (Auto) [place] % (Auto) Eos % (Auto) Baso % (Auto) Absolute Neuts (auto) Absolute Lymphs (auto) Absolute Monos (auto) Absolute Eos (auto) Absolute Basos (auto) Absolute Nucleated RBC Nucleated RBC % INR (Anticoag Therapy) Patient Temperature Not Reportable ABG pH 7.51 H ABG pH (Temp Correct) Not Reportable ABG pCO2 34 L ABG pCO2 (Temp Corrct Not Reportable ABG pO2 91 ABG pO2 (Temp Correct Not Reportable ABG HCO3 28.3 ABG O2 Saturation 99.5 H ABG Base Excess 4.3 H Respiration Rate Not Reportable O2 Delivery Device vent Ventilator Type Not Reportable Vent Mode Not Reportable FiO2 35 Inspiratory Time Not Reportable PEEP Not Reportable Pressure Support Not Reportable Pressure Control Not Reportable EPAP Not Reportable IPAP Not Reportable BiPAP Not Reportable Sodium 141 Potassium 3.3 L Chloride 108 Carbon Dioxide 28 Anion Gap 5 BUN 17 Creatinine 0.45 L Est GFR ( Amer) 165.3 Est GFR (Non-Af Amer) 136.6 BUN/Creatinine Ratio 37.8 H Glucose 160 H Lactic Acid Uric Acid 1.5 L Calcium 6.9 L Phosphorus 2.3 L Magnesium 1.8 L Total Bilirubin 0.30 AST 20 ALT 18 Alkaline Phosphatase 74 Troponin I 0.06 H* B-Natriuretic Peptide Total Protein 4.2 L Albumin 2.1 L Globulin 2.1 Albumin/Globulin Ratio 1.0 Urine Color Urine Appearance Urine pH Ur Specific [place] Urine Protein Urine Ketones Urine Blood Urine Nitrate Urine Bilirubin Urine Urobilinogen Ur Leukocyte Esterase Urine WBC (Auto) Urine RBC (Auto) Urine Bacteria Urine Glucose Urine Ascorbic Acid 09/11/18 09/11/18 09/11/18 00:54 02:53 04:20 WBC 26.6 H RBC 3.04 L Hgb 8.3 L Hct 26 L MCV 85 MCH 28 MCHC 32 RDW 16 H Plt Count 219 MPV 8.3 Neut % (Auto) 89.5 Lymph % (Auto) 3.5 Sullivan % (Auto) 6.7 Eos % (Auto) 0.1 Baso % (Auto) 0.2 Absolute Neuts (auto) 23.8 H Absolute Lymphs (auto) 0.9 L Absolute Monos (auto) 1.8 H Absolute Eos (auto) 0.0 Absolute Basos (auto) 0.0 Absolute Nucleated RBC 0.0 Nucleated RBC % 0.0 INR (Anticoag Therapy) Patient Temperature ABG pH ABG pH (Temp Correct) ABG pCO2 ABG pCO2 (Temp Corrct ABG pO2 ABG pO2 (Temp Correct ABG HCO3 ABG O2 Saturation ABG Base Excess Respiration Rate O2 Delivery Device Ventilator Type Vent Mode FiO2 Inspiratory Time PEEP Pressure Support Pressure Control EPAP IPAP BiPAP Sodium Potassium Chloride Carbon Dioxide Anion Gap BUN Creatinine Est GFR ( Amer) Est GFR (Non-Af Amer) BUN/Creatinine Ratio Glucose Lactic Acid Uric Acid Calcium Phosphorus Magnesium Total Bilirubin AST ALT Alkaline Phosphatase Troponin I 0.05 H* B-Natriuretic Peptide Total Protein Albumin Globulin Albumin/Globulin Ratio Urine Color Yellow Urine Appearance Cloudy Urine pH 7.0 Ur Specific [place] 1.024 Urine Protein 1+(30 mg/dl) A Urine Ketones Negative Urine Blood Negative Urine Nitrate Negative Urine Bilirubin Negative Urine Urobilinogen Negative Ur Leukocyte Esterase Negative Urine WBC (Auto) Absent Urine RBC (Auto) 3+(>10/hpf) A Urine Bacteria Absent Urine Glucose Negative Urine Ascorbic Acid * A 09/11/18 09/11/18 09/11/18 05:30 05:30 08:50 WBC 24.5 H RBC 2.88 L Hgb 7.9 L Hct 25 L MCV 85 MCH 27 MCHC 32 RDW 16 H Plt Count 209 MPV 8.3 Neut % (Auto) 90.7 Lymph % (Auto) 2.5 Sullivan % (Auto) 6.5 Eos % (Auto) 0.3 Baso % (Auto) 0.0 Absolute Neuts (auto) 22.2 H Absolute Lymphs (auto) 0.6 L Absolute Monos (auto) 1.6 H Absolute Eos (auto) 0.1 Absolute Basos (auto) 0.0 Absolute Nucleated RBC 0.0 Nucleated RBC % 0.0 INR (Anticoag Therapy) Patient Temperature ABG pH ABG pH (Temp Correct) ABG pCO2 ABG pCO2 (Temp Corrct ABG pO2 ABG pO2 (Temp Correct ABG HCO3 ABG O2 Saturation ABG Base Excess Respiration Rate O2 Delivery Device Ventilator Type Vent Mode FiO2 Inspiratory Time PEEP Pressure Support Pressure Control EPAP IPAP BiPAP Sodium 140 Potassium 3.7 Chloride 110 Carbon Dioxide 27 Anion Gap 3 BUN 15 Creatinine 0.40 L Est GFR ( Amer) 189.3 Est GFR (Non-Af Amer) 156.5 BUN/Creatinine Ratio 37.5 H Glucose 183 H Lactic Acid Uric Acid Calcium 7.3 L Phosphorus 3.0 Magnesium 2.1 Total Bilirubin AST ALT Alkaline Phosphatase Troponin I 0.05 H* B-Natriuretic Peptide Total Protein Albumin Globulin Albumin/Globulin Ratio Urine Color Urine Appearance Urine pH Ur Specific [place] Urine Protein Urine Ketones Urine Blood Urine Nitrate Urine Bilirubin Urine Urobilinogen Ur Leukocyte Esterase Urine WBC (Auto) Urine RBC (Auto) Urine Bacteria Urine Glucose Urine Ascorbic Acid 09/11/18 09/11/18 09/11/18 11:15 12:15 12:15 WBC 27.9 H RBC 2.90 L Hgb 8.1 L Hct 25 L MCV 86 MCH 28 MCHC 33 RDW 16 H Plt Count 231 MPV 8.5 Neut % (Auto) 91.8 Lymph % (Auto) 1.9 Sullivan % (Auto) 6.0 Eos % (Auto) 0.1 Baso % (Auto) 0.2 Absolute Neuts (auto) 25.6 H Absolute Lymphs (auto) 0.5 L Absolute Monos (auto) 1.7 H Absolute Eos (auto) 0.0 Absolute Basos (auto) 0.1 Absolute Nucleated RBC 0.0 Nucleated RBC % 0.0 INR (Anticoag Therapy) 1.03 Patient Temperature Not Reportable ABG pH 7.48 H ABG pH (Temp Correct) Not Reportable ABG pCO2 34 L ABG pCO2 (Temp Corrct Not Reportable ABG pO2 76 L ABG pO2 (Temp Correct Not Reportable ABG HCO3 26.6 ABG O2 Saturation 98.1 H ABG Base Excess 2.2 H Respiration Rate Not Reportable O2 Delivery Device Ventilator Type Not Reportable Vent Mode cpap FiO2 35 Inspiratory Time 10 PEEP 8 Pressure Support Not Reportable Pressure Control Not Reportable EPAP Not Reportable IPAP Not Reportable BiPAP Not Reportable Sodium Potassium Chloride Carbon Dioxide Anion Gap BUN Creatinine Est GFR ( Amer) Est GFR (Non-Af Amer) BUN/Creatinine Ratio Glucose Lactic Acid Uric Acid Calcium Phosphorus Magnesium Total Bilirubin AST ALT Alkaline Phosphatase Troponin I B-Natriuretic Peptide Total Protein Albumin Globulin Albumin/Globulin Ratio Urine Color Urine Appearance Urine pH Ur Specific [place] Urine Protein Urine Ketones Urine Blood Urine Nitrate Urine Bilirubin Urine Urobilinogen Ur Leukocyte Esterase Urine WBC (Auto) Urine RBC (Auto) Urine Bacteria Urine Glucose Urine Ascorbic Acid Assessment: S/P exlap for perforated sigmoid diverticulum and colostomy Sepsis-resolving Ventilator dependence Leukocytosis Plan: IV abx Tube feeds Tracheostomy Wean ventilator Follow WBC Care discussed with daughter at bedside.
[2018-09-11] MEDS: Dexmedetomidine* 1,000 MCG in NS 0.9% 250 ML* 240 ML IVPB SCH (19:20)
--- NOTE | 2018-09-11 20:21 | PN ---
Subjective Date of Service: 09/11/18 Interval History: Received report from Pharmacist that pt's blood culture 1/5 bottles (+) for Gram (+) cocci in GS w/PCR (-) for MRSA and MSSA. Pt currently on Zosyn w/c should have good coverage for non-MRSA Gram positive bacteria. Family History: Unchanged from Admission Social History: Unchanged from Admission Past Medical History: Unchanged from Admission Objective Active Medications: Acetaminophen (Tylenol Adult Liq*) 650 mg G TUBE Q6H [facility] Last Admin: 09/11/18 19:30 Dose: 650 mg Albuterol (Ventolin 2.5 Mg/3 Ml Neb.Dang*) 2.5 mg INH Q6H PRN PRN Reason: WHEEZING Last Admin: 09/05/18 02:01 Dose: 2.5 mg Budesonide/Formoterol Fumarate (Symbicort 160/4.5 (Nf)) 2 puff INH BID [facility]; Protocol Last Admin: 09/11/18 19:13 Dose: Not Given Chlorhexidine Gluconate (Peridex Mouth Wash 0.12%*) 15 ml TOPICAL Q4H [facility]IL Last Admin: 09/11/18 19:54 Dose: 15 ml Famotidine (Pepcid Iv*) 20 mg IV DAILY [facility] Last Admin: 09/11/18 08:39 Dose: 20 mg Fentanyl Citrate (Fentanyl*) 50 mcg IV SLOW PU Q2H PRN PRN Reason: PAIN Last Admin: 09/10/18 15:25 Dose: 50 mcg Furosemide (Lasix Iv*) 40 mg IV DAILY [facility] Stop: 09/13/18 08:59 Last Admin: 09/11/18 08:39 Dose: 40 mg Heparin Sodium (Porcine) (Heparin Vial(*)) 5,000 units SUBCUT Q8HR [facility] Last Admin: 09/11/18 15:17 Dose: 5,000 units Piperacillin Sod/Tazobactam (Sod 3.375 gm/ Sodium Chloride) 100 mls @ 25 mls/ hr IVPB Q8H [facility] Stop: 09/12/18 16:59 Last Admin: 09/11/18 19:27 Dose: 25 mls/hr Anidulafungin 100 mg/ Sodium (Chloride) 130 mls @ 65 mls/hr IVPB Q24H [facility] Stop: 09/17/18 23:00 Last Admin: 09/11/18 14:00 Dose: 65 mls/hr Fentanyl Citrate (Fentanyl Infusion Bag 50 Mcg/Ml 50 Ml) 2,500 mcg in 50 mls @ 0 mls/hr IV Q72H [facility]; Protocol Last Admin: 09/10/18 14:00 Dose: Not Given Dexmedetomidine HCl 1,000 mcg/ (Sodium Chloride) 250 mls @ 13.42 mls/hr IVPB Q18H [facility]; Protocol Last Admin: 09/11/18 19:20 Dose: Not Given Albumin Human (Albumin Human 25%*) 50 gm in 200 mls @ 1 mls/min IV DAILY [facility] Stop: 09/13/18 08:59 Last Admin: 09/11/18 10:08 Dose: 1 mls/min Sodium Chloride (Ns 0.9% 1000 Ml) 1,000 mls @ 150 mls/hr IV PER RATE [facility] Stop: 09/14/18 03:24 Last Admin: 09/11/18 07:40 Dose: 150 mls/hr Propofol (Diprivan*) 100 mls @ 0 mls/hr IV .(Initial Rate) [facility]; Protocol Ondansetron HCl (Zofran Inj*) 4 mg IV Q6H PRN PRN Reason: NAUSEA Oxycodone HCl (Oxycodone Oral.Soln*) 5 mg PO Q4H PRN PRN Reason: PAIN Last Admin: 09/10/18 18:20 Dose: 5 mg Pharmacy Consult (Zosyn Per Pharmacy*) 1 note FOLLOW UP .ZOSYN PER PHARMACY [facility] Vital Signs - 8 hr 09/11/18 09/11/18 09/11/18 12:30 12:45 13:00 Temperature 98.8 F 98.8 F 98.8 F Pulse Rate 91 98 101 Respiratory 30 Rate Blood Pressure 140/66 (mmHg) O2 Sat by Pulse 95 94 95 Oximetry 09/11/18 09/11/18 09/11/18 13:01 13:15 13:30 Temperature 98.8 F 99.0 F 99.0 F Pulse Rate 98 96 Respiratory Rate Blood Pressure 177/92 (mmHg) O2 Sat by Pulse 96 96 Oximetry 09/11/18 09/11/18 09/11/18 13:31 13:45 14:00 Temperature 99.0 F 99.0 F 99.0 F Pulse Rate 92 91 89 Respiratory 33 Rate Blood Pressure 146/69 139/68 (mmHg) O2 Sat by Pulse 96 95 95 Oximetry 09/11/18 09/11/18 09/11/18 14:15 14:30 14:45 Temperature 99.1 F 99.1 F 99.1 F Pulse Rate 87 88 86 Respiratory Rate Blood Pressure 142/62 (mmHg) O2 Sat by Pulse 96 96 96 Oximetry 09/11/18 09/11/18 09/11/18 15:00 15:15 15:30 Temperature 99.1 F 99.1 F 99.3 F Pulse Rate 86 90 87 Respiratory Rate Blood Pressure 134/69 122/75 (mmHg) O2 Sat by Pulse 96 96 95 Oximetry 09/11/18 09/11/18 09/11/18 15:45 15:47 16:00 Temperature 99.3 F 99.3 F Pulse Rate 87 87 Respiratory 33 Rate Blood Pressure 136/66 (mmHg) O2 Sat by Pulse 95 95 Oximetry 09/11/18 09/11/18 09/11/18 16:15 16:30 16:45 Temperature 99.5 F 99.5 F 99.5 F Pulse Rate 87 84 87 Respiratory Rate Blood Pressure (mmHg) O2 Sat by Pulse 96 95 96 Oximetry 09/11/18 09/11/18 09/11/18 16:52 17:00 17:01 Temperature 99.5 F 99.5 F Pulse Rate 92 89 Respiratory 33 Rate Blood Pressure 161/75 (mmHg) O2 Sat by Pulse 92 93 Oximetry 09/11/18 09/11/18 09/11/18 17:15 17:30 17:45 Temperature 99.5 F 99.5 F 99.5 F Pulse Rate 85 88 89 Respiratory Rate Blood Pressure 131/78 (mmHg) O2 Sat by Pulse 96 96 95 Oximetry 09/11/18 09/11/18 09/11/18 18:00 18:15 18:30 Temperature 99.5 F 99.5 F 99.7 F Pulse Rate 87 88 88 Respiratory 33 Rate Blood Pressure 162/78 124/70 (mmHg) O2 Sat by Pulse 96 96 96 Oximetry 09/11/18 09/11/18 09/11/18 18:45 19:00 19:15 Temperature 99.7 F 99.7 F 99.7 F Pulse Rate 89 85 88 Respiratory 33 Rate Blood Pressure 140/74 (mmHg) O2 Sat by Pulse 96 94 96 Oximetry Oxygen Devices in Use Now: Endotracheal Tube Result Diagrams: 09/11/18 12:15 09/11/18 05:30 Additional Lab and Data: Laboratory Results - last 24 hr 08/31/18 08/31/18 08/31/18 01:09 05:41 05:41 WBC 11.2 H RBC 3.61 L Hgb 10.4 L Hct 31 L MCV 85 MCH 29 MCHC 34 RDW 15 Plt Count 289 MPV 7.7 Neut % (Auto) 83.7 Lymph % (Auto) 4.1 [place] % (Auto) 12.1 Eos % (Auto) 0.0 Baso % (Auto) 0.1 Absolute Neuts (auto) 9.4 H Absolute Lymphs (auto) 0.5 L Absolute Monos (auto) 1.4 H Absolute Eos (auto) 0.0 Absolute Basos (auto) 0.0 Absolute Nucleated RBC 0.0 Nucleated RBC % 0.0 INR (Anticoag Therapy) Sodium 137 Potassium 3.1 L Chloride 111 Carbon Dioxide 21 L Anion Gap 5 BUN 15 Creatinine 0.52 Est GFR ( Amer) 139.9 Est GFR (Non-Af Amer) 115.6 BUN/Creatinine Ratio 28.8 H Glucose 128 H Lactic Acid Calcium 7.4 L Magnesium 2.1 Total Bilirubin AST ALT Alkaline Phosphatase B-Natriuretic Peptide Total Protein Albumin Globulin Albumin/Globulin Ratio Urine Color [place] Urine Appearance Turbid Urine pH 5.0 Ur Specific [place] 1.031 H Urine Protein 2+(100 mg/dl) A Urine Ketones Negative Urine Blood Negative Urine Nitrate Negative Urine Bilirubin Negative Urine Urobilinogen Negative Ur Leukocyte Esterase Negative Urine WBC (Auto) Trace(0-5/hpf) Urine RBC (Auto) Trace(0-2/hpf) Urine Bacteria 1+ A Urine Yeast Present A Urine Glucose Negative 08/31/18 08/31/18 08/31/18 05:41 15:51 15:51 WBC 3.4 L RBC 4.43 Hgb 12.6 Hct 38 MCV 86 MCH 29 MCHC 33 RDW 15 Plt Count 413 MPV 8.1 Neut % (Auto) 69.7 Lymph % (Auto) 20.3 [place] % (Auto) 9.8 Eos % (Auto) 0.1 Baso % (Auto) 0.1 Absolute Neuts (auto) 2.4 Absolute Lymphs (auto) 0.7 L Absolute Monos (auto) 0.3 Absolute Eos (auto) 0.0 Absolute Basos (auto) 0.0 Absolute Nucleated RBC 0.0 Nucleated RBC % 0.4 INR (Anticoag Therapy) Sodium 139 Potassium 3.8 Chloride 111 Carbon Dioxide 19 L Anion Gap 9 BUN 16 Creatinine 0.57 Est GFR ( Amer) 125.8 Est GFR (Non-Af Amer) 104.0 BUN/Creatinine Ratio 28.1 H Glucose 151 H Lactic Acid Calcium 8.1 L Magnesium Total Bilirubin 0.40 AST 36 ALT 18 Alkaline Phosphatase 78 B-Natriuretic Peptide 361 H Total Protein 5.8 L Albumin 2.8 L Globulin 3.0 Albumin/Globulin Ratio 0.9 L Urine Color Urine Appearance Urine pH Ur Specific [place] Urine Protein Urine Ketones Urine Blood Urine Nitrate Urine Bilirubin Urine Urobilinogen Ur Leukocyte Esterase Urine WBC (Auto) Urine RBC (Auto) Urine Bacteria Urine Yeast Urine Glucose 08/31/18 08/31/18 08/31/18 15:51 15:51 15:51 WBC RBC Hgb Hct MCV MCH MCHC RDW Plt Count MPV Neut % (Auto) Lymph % (Auto) [place] % (Auto) Eos % (Auto) Baso % (Auto) Absolute Neuts (auto) Absolute Lymphs (auto) Absolute Monos (auto) Absolute Eos (auto) Absolute Basos (auto) Absolute Nucleated RBC Nucleated RBC % INR (Anticoag Therapy) 1.24 H Sodium Potassium Chloride Carbon Dioxide Anion Gap BUN Creatinine Est GFR ( Amer) Est GFR (Non-Af Amer) BUN/Creatinine Ratio Glucose Lactic Acid 2.5 H* Calcium Magnesium Total Bilirubin AST ALT Alkaline Phosphatase B-Natriuretic Peptide 546 H Total Protein Albumin Globulin Albumin/Globulin Ratio Urine Color Urine Appearance Urine pH Ur Specific [place] Urine Protein Urine Ketones Urine Blood Urine Nitrate Urine Bilirubin Urine Urobilinogen Ur Leukocyte Esterase Urine WBC (Auto) Urine RBC (Auto) Urine Bacteria Urine Yeast Urine Glucose Microbiology and Other Data: Microbiology 08/29/18 10:10 Blood Venous Aerobic Blood Culture - Preliminary No Growth Day 2 08/29/18 10:10 Blood Venous Anaerobic Blood Culture - Preliminary No Growth Day 2 08/29/18 10:10 Blood Venous Aerobic Blood Culture - Preliminary No Growth Day 2 08/29/18 10:10 Blood Venous Anaerobic Blood Culture - Preliminary No Growth Day 2 Assess/Plan/Problems-Billing Assessment: Mrs Spencer is a 73yo F with PMH of asthma, diverticulitis, who presents to ED with c/o abdominal pain; found to have another episode of diverticulitis failed outpatient therapy. Status and Disposition: Inpatient.
[2018-09-11] MEDS: Propofol* 100 ML IV SCH (22:43)
[2018-09-12] MEDS: Dexmedetomidine* 1,000 MCG in NS 0.9% 250 ML* 240 ML IVPB SCH ×2 (00:08→17:23)
[2018-09-12] MEDS: ZOSYN 3.375 GM Q8H per EXTENDED INFUSION IVPB SCH ×4 (00:30→09:23)
[2018-09-12] MEDS: Chlorhexidine MOUTHWASH 0.12%* 15 ML UDC TOPICAL SCH ×7 (00:30→23:44)
[2018-09-12] MEDS: Acetaminophen ADULT LIQ* 650 MG/20.3 ML UDC G TUBE SCH ×4 (04:36→22:06)
[2018-09-12] MEDS: Heparin VIAL(*) 5000 UNITS/ML VIAL (FIVE THOUSAND) SUBCUT SCH ×3 (05:20→22:06)
[2018-09-12 06:11] LABS: Hematocrit 26 % (35-47); Hemoglobin 8.5 g/dL (12.0-16.0); Mean Corpuscular HGB Conc 32 g/dL (31-36); Mean Corpuscular Hemoglobin 28 pg (27-31); Mean Corpuscular Volume 86 fL (80-97); Mean Platelet Volume 8.6 fL (7.4-10.4); Platelet Count 264 10^3/uL (150-450); Red Blood Count 3.07 10^6 /uL (3.70-4.87); Red Cell Distribution Width 16 % (10.5-15); White Blood Count 25.4 10^3/uL (3.5-10.8)
[2018-09-12 06:17] LABS: ABS Basophils 0.1 10^3/ul (0-0.2); ABS Eosinophils 0.1 10^3/ul (0-0.6); ABS Lymphocytes 0.7 10^3/ul (1.0-4.8); ABS Monocytes 1.7 10^3/ul (0-0.8); ABS Neutrophils 22.8 10^3/ul (1.5-7.7); Eosinophil % 0.2 %; Lymphocyte % 2.8 %
[2018-09-12 06:18] LABS: BUN/Creatinine Ratio 34.9 (8-20); EGFR African American 174.2 (>60); EGFR Non-African American 143.9 (>60); Potassium 3.8 mmol/L (3.5-5.0)
[2018-09-12] MEDS: PTO:Budesonide/Formote 160/4.5(NF) MDI INH SCH ×2 (07:24→19:56)
[2018-09-12] MEDS: Propofol* 100 ML IV SCH ×2 (07:51→15:41)
[2018-09-12] MEDS: Albumin Human 25%* 50 GM/200 ML BTL IV SCH (09:12)
[2018-09-12] MEDS: Furosemide IV* 10 MG/ML VIAL (40 MG) IV SCH (09:12)
[2018-09-12] MEDS: Famotidine IV* 10 MG/ML 2 ML (20 mg) IV SCH (09:23)
--- NOTE | 2018-09-12 09:57 | PN ---
Date of Service: 09/12/18 Critical Care Services: 73 F with prolonged intubation/mechanical ventilation - Patient seen and examined at the bedside - Started on propofol to control tachypnea - Comfortable - No significant overnight events - 04/21 BCx + Staph negative Vital Signs: Temp Pulse Resp BP SpO2 FiO2 99.1 F 72 29 110/61 95 35 09/12/18 09:00 09/12/18 09:00 09/12/18 09:00 09/12/18 09:00 09/12/18 09:00 09/12 08:00 Physical Exam: Gen:NAD, intubated/mechanical ventilated, sedated on propofol HEENT:NCAT, PERRL, neck supple, no thyromegaly, ETT in oral orifice Lungs:CTAB Cardiac: +S1S2, RRR Abdomen:Colostomy functional, soft, normoactive bowel sounds Extremities:edema- LE including dorsum of feet and hands Neuro:nonfocal; Grossly nonfocal Fluid Balance (Past 24 Hours): I= O= Net Intake & Output 09/10/18 09/11/18 09/12/18 09/13/18 06:59 06:59 06:59 06:59 Intake Total 1272 4301 2167 Output Total 1595 3090 6145 330 Balance -323 1211 -9234 -330 Weight 169 lb 1.6 oz 171 lb 13.225 oz 158 lb 9.6 oz Intake: IV Fluids 270 2178 1014 ABX - ZOSYN 100 100 Albumin 200 Anidulafungin 0 NS 270 1819 171 kcl 293 potassium Phosphate 259 250 IVPB 107 340 ABX - ZOSYN 107 110 Albumin 100 Anidulafungin 130 Medicated IV 108 145 CC - Dexmedetomidine/ 58 Precedex GEN - Magnesium 50 propofol 145 Oral 0 0 Tube Feeding 895 1610 878 Tube Feeding Flush Amount 65 130 NG Tube Irrigate Amount 0 0 Output: NG Tube Drainage Amount 0 0 Wound Vac 100 0 Urine 0 Frost 770 2715 5320 105 Liquid Stool 75 350 Colostomy 825 200 475 225 Estimated Blood Loss 0 0 Other: Date of Last Bowel 09/10/18 09/10/18 09/12/18 Movement ADLs: Meal Record Start: 08/29/18 16: 46 Freq: Status: Complete Protocol: Created 08/29/18 16:46 System (Rec: 08/29/18 16:46 System SSU-C12) Document 08/31/18 08:14 [id number] (Rec: 08/31/18 08:14 MFT5381 SSU-C04) Document 08/31/18 12:24 QCP5298 (Rec: 08/31/18 12:25 HKO5302 SSU-C04) ADLs: Meal Record Start: 08/31/18 17: 06 Freq: 09,13,18 Status: Inactive Protocol: Created 08/31/18 17:06 DPZ9837 (Rec: 08/31/18 17:06 MJE2926 ICU-M23) Document 08/31/18 18:00 ZDL5621 (Rec: 08/31/18 20:04 IES9829 ICU-C21) Intake and Output Start: 08/29/18 09: 06 Freq: Status: Active Protocol: Created 08/29/18 09:06 System (Rec: 08/29/18 09:06 System EDRM-C04) Document 08/30/18 00:00 JMQ0572 (Rec: 08/30/18 06:50 LPV3798 SSU-M14) Intake and Output Start: 08/29/18 16: 46 Freq: DAILY@0600,1400,2200 Status: Complete Protocol: Created 08/29/18 16:46 System (Rec: 08/29/18 16:46 System SSU-C12) Document 08/29/18 22:10 DKJ1225 (Rec: 08/29/18 22:11 MEL5029 SSU-M18) Document 08/30/18 03:59 ZPD9170 (Rec: 08/30/18 03:59 BYX5129 SSU-M14) Document 08/30/18 06:34 YXR7987 (Rec: 08/30/18 06:34 SDY1326 SSU-C09) Document 08/30/18 14:16 MUR9121 (Rec: 08/30/18 14:16 YPB4683 SSU-C08) Document 08/30/18 18:30 ZUG6775 (Rec: 08/30/18 22:44 HQL8837 SSU-M17) Document 08/30/18 22:44 VQF7954 (Rec: 08/30/18 22:46 TNF3799 SSU-M17) Document 08/31/18 01:13 WDR7223 (Rec: 08/31/18 01:14 PJB5964 SSU-C03) Document 08/31/18 05:51 SJF7087 (Rec: 08/31/18 05:51 TFJ3090 SSU-C03) Document 08/31/18 06:36 JZS0653 (Rec: 08/31/18 06:36 QMI2774 SSU-C03) Document 08/31/18 12:26 FYH8984 (Rec: 08/31/18 12:26 BWF2172 SSU-C04) Document 08/31/18 14:19 TIV2035 (Rec: 08/31/18 14:20 YAK8867 SSU-C04) Intake and Output Start: 08/31/18 17: 06 Freq: Q1HR Status: Active Protocol: Created 08/31/18 17:06 ANF9061 (Rec: 08/31/18 17:06 ETM1238 ICU-M23) Document 08/31/18 18:00 WGI5478 (Rec: 08/31/18 20:04 KMV0423 ICU-C21) Document 08/31/18 19:00 SWQ8532 (Rec: 09/01/18 01:29 LCE5589 ICU-C25) Document 08/31/18 20:00 KBV0364 (Rec: 09/01/18 01:41 UYI6308 ICU-C25) Document 08/31/18 22:00 BQT2594 (Rec: 09/01/18 01:46 BMK5569 ICU-C25) Document 08/31/18 23:00 ERU2053 (Rec: 09/01/18 01:48 NPO5481 ICU-C25) Document 09/01/18 00:00 JCF7623 (Rec: 09/01/18 02:30 VFZ3508 ICU-C25) Co-Sign 09/01/18 00:00 SOI3921 Document 09/01/18 01:00 CIL8157 (Rec: 09/01/18 02:57 IUO1950 ICU-C25) Document 09/01/18 02:00 OMK3419 (Rec: 09/01/18 03:00 MGW2944 ICU-C25) Document 09/01/18 03:00 DSO7448 (Rec: 09/01/18 03:07 KLM0489 ICU-C25) Document 09/01/18 04:00 ALN7422 (Rec: 09/01/18 04:17 KHR5739 ICU-C25) Document 09/01/18 05:00 QTO9584 (Rec: 09/01/18 05:13 QOX3573 ICU-C25) Document 09/01/18 06:00 BON5438 (Rec: 09/01/18 06:45 QVC0447 ICU-C25) Document 09/01/18 07:00 BIX2097 (Rec: 09/01/18 07:09 DZC0755 ICU-M23) Document 09/01/18 08:00 HZW6734 (Rec: 09/01/18 09:02 MWS7957 ICU-M23) Document 09/01/18 09:00 YHM2404 (Rec: 09/01/18 09:02 QSU5993 ICU-M23) Document 09/01/18 10:06 GRG8078 (Rec: 09/01/18 10:06 FUY5709 ICU-M23) Document 09/01/18 11:00 ENC5239 (Rec: 09/01/18 11:06 GGM7091 ICU-M23) Document 09/01/18 12:00 ERH6209 (Rec: 09/01/18 12:26 KUY9896 ICU-M23) Document 09/01/18 13:00 UTM9394 (Rec: 09/01/18 14:29 ICM8659 ICU-M23) Document 09/01/18 14:00 JAA9949 (Rec: 09/01/18 14:29 RCF1021 ICU-M23) Document 09/01/18 14:48 ZAM1760 (Rec: 09/01/18 14:50 BKR7706 ICU-M23) Document 09/01/18 15:00 SID9026 (Rec: 09/01/18 16:04 BRS1370 ICU-M23) Document 09/01/18 16:00 UPA1846 (Rec: 09/01/18 16:04 QQS4450 ICU-M23) Document 09/01/18 17:05 CDU1590 (Rec: 09/01/18 17:05 UHB3852 ICU-M23) Document 09/01/18 18:00 YEU7127 (Rec: 09/01/18 18:04 YBK1023 ICU-M23) Document 09/01/18 20:00 YMI6022 (Rec: 09/01/18 20:25 RQE6275 ICU-M23) Document 09/01/18 21:00 RMX6752 (Rec: 09/01/18 21:04 ROB9113 ICU-M23) Document 09/01/18 22:00 ABA9993 (Rec: 09/01/18 22:13 PRS4073 ICU-M23) Document 09/01/18 23:00 PXV7778 (Rec: 09/01/18 23:20 KPX5180 ICU-M23) Document 09/02/18 00:00 GTW0070 (Rec: 09/02/18 00:08 LKQ8878 ICU-M23) Document 09/02/18 01:00 IUN4495 (Rec: 09/02/18 01:04 QJY8329 ICU-M23) Document 09/02/18 02:00 REV8966 (Rec: 09/02/18 02:20 KCB2205 ICU-M23) Document 09/02/18 03:00 ANZ4894 (Rec: 09/02/18 03:03 WZV8847 ICU-M23) Document 09/02/18 04:00 FVL4506 (Rec: 09/02/18 04:14 ATO7558 ICU-M23) Document 09/02/18 05:00 VEX2016 (Rec: 09/02/18 05:01 VQV4510 ICU-M23) Document 09/02/18 05:25 SGY9270 (Rec: 09/02/18 05:26 IDU9705 ICU-M23) Document 09/02/18 05:28 YPC9053 (Rec: 09/02/18 05:29 PHY9307 ICU-M23) Document 09/02/18 06:00 VNJ0002 (Rec: 09/02/18 06:09 GRN5074 ICU-M23) Document 09/02/18 07:00 YSH4914 (Rec: 09/02/18 07:23 GIC4567 ICU-M23) Document 09/02/18 08:00 TCY3847 (Rec: 09/02/18 08:33 VNG7711 ICU-M23) Document 09/02/18 09:00 SOI9522 (Rec: 09/02/18 09:27 FIJ0996 ICU-C06) Document 09/02/18 10:00 PFF8355 (Rec: 09/02/18 12:05 MJJ8847 ICU-M23) Document 09/02/18 11:00 EFF5466 (Rec: 09/02/18 12:05 GBJ5472 ICU-M23) Document 09/02/18 12:00 VZS3295 (Rec: 09/02/18 12:05 BTF8145 ICU-M23) Document 09/02/18 13:00 QPX0814 (Rec: 09/02/18 13:16 WUU3393 ICU-M23) Document 09/02/18 14:00 TIS1515 (Rec: 09/02/18 14:04 DQC7524 ICU-M23) Document 09/02/18 15:00 CNX3056 (Rec: 09/02/18 15:30 TBW8755 ICU-C25) Document 09/02/18 16:00 PQD7851 (Rec: 09/02/18 16:29 SIB4947 ICU-M23) Document 09/02/18 17:00 JHD9003 (Rec: 09/02/18 17:14 HDS4655 ICU-M23) Document 09/02/18 18:00 DFV2506 (Rec: 09/02/18 18:07 OSY7640 ICU-M23) Document 09/02/18 20:00 AUE4110 (Rec: 09/02/18 20:00 AKL1500 ICU-M23) Document 09/02/18 21:00 KCD9666 (Rec: 09/02/18 21:05 GFZ2632 ICU-M23) Document 09/02/18 22:00 IKQ5116 (Rec: 09/02/18 22:07 XHP1875 ICU-M23) Document 09/02/18 23:00 HRC0617 (Rec: 09/02/18 23:39 WEG1221 ICU-M23) Document 09/03/18 00:00 WEN1667 (Rec: 09/03/18 01:04 EHY4497 ICU-M23) Document 09/03/18 01:00 TWJ8978 (Rec: 09/03/18 01:06 UIE7233 ICU-M23) Document 09/03/18 02:00 BEP9554 (Rec: 09/03/18 03:22 LPI1271 ICU-M23) Document 09/03/18 03:00 PVX0554 (Rec: 09/03/18 03:22 INO4799 ICU-M23) Document 09/03/18 04:00 BAT1117 (Rec: 09/03/18 04:26 RCQ2547 ICU-M23) Document 09/03/18 05:00 CQO8255 (Rec: 09/03/18 05:00 VAW9521 ICU-M23) Document 09/03/18 06:00 IUV4202 (Rec: 09/03/18 06:59 XOB8452 ICU-M23) Document 09/03/18 07:00 MVG4537 (Rec: 09/03/18 07:26 NRY1867 ICU-C06) Document 09/03/18 07:46 ISL1117 (Rec: 09/03/18 07:46 IBI8493 ICU-C06) Document 09/03/18 08:00 VQK4801 (Rec: 09/03/18 08:10 MIE1670 ICU-C06) Document 09/03/18 10:00 RFJ1125 (Rec: 09/03/18 11:00 UJL3097 ICU-M23) Document 09/03/18 11:00 AIM4837 (Rec: 09/03/18 11:50 ZYT1429 ICU-C06) Document 09/03/18 13:00 UEG3422 (Rec: 09/03/18 14:04 YDR0651 ICU-C06) Document 09/03/18 14:00 DDF6495 (Rec: 09/03/18 15:51 OLP1549 ICU-C06) Document 09/03/18 15:00 ZRQ1825 (Rec: 09/03/18 15:53 TDW1128 ICU-C06) Document 09/03/18 20:28 WUG8573 (Rec: 09/03/18 20:28 LGY7839 ICU-M23) Document 09/03/18 23:58 ZUZ4164 (Rec: 09/03/18 23:58 ZGE8225 ICU-M23) Document 09/04/18 02:00 MRY8053 (Rec: 09/04/18 02:09 IXS5323 ICU-M23) Document 09/04/18 03:00 KSO3445 (Rec: 09/04/18 03:13 MRW9472 ICU-C06) Document 09/04/18 04:00 ZUU5146 (Rec: 09/04/18 04:00 EWP7741 ICU-M23) Document 09/04/18 05:00 LQO5119 (Rec: 09/04/18 05:13 PUC7841 ICU-M23) Document 09/04/18 06:00 BOL8678 (Rec: 09/04/18 06:04 SIN2040 ICU-M23) Document 09/04/18 06:11 KUQ8025 (Rec: 09/04/18 06:11 PUL2253 ICU-M23) Document 09/04/18 08:00 EBQ8377 (Rec: 09/04/18 09:23 TJT1700 ICU-C12) Document 09/04/18 09:00 SUV8661 (Rec: 09/04/18 09:23 OVE3539 ICU-C12) Document 09/04/18 10:00 MZI1680 (Rec: 09/04/18 10:16 STQ7614 ICU-M23) Document 09/04/18 11:00 KKR8125 (Rec: 09/04/18 11:45 UWI6480 ICU-M23) Document 09/04/18 12:00 ISD7035 (Rec: 09/04/18 12:47 MIH7787 ICU-M23) Document 09/04/18 13:00 FXO8248 (Rec: 09/04/18 13:01 YUA5031 ICU-C12) Document 09/04/18 14:29 ZWR3537 (Rec: 09/04/18 14:29 AGN4297 ICU-C12) Document 09/04/18 15:00 GUC9869 (Rec: 09/04/18 16:31 YAM5542 ICU-C12) Document 09/04/18 16:00 CCS9222 (Rec: 09/04/18 17:00 LGO0477 ICU-C12) Co-Sign 09/04/18 16:00 ESZ8122 Document 09/04/18 17:00 CMV7600 (Rec: 09/04/18 17:23 XBC5820 ICU-C12) Document 09/04/18 18:00 AXQ7448 (Rec: 09/04/18 18:32 WHG7141 ICU-C12) Document 09/04/18 19:37 WZN8506 (Rec: 09/04/18 19:37 TGX1462 ICU-M23) Document 09/04/18 21:00 DNF6676 (Rec: 09/04/18 21:11 FCC9336 ICU-M23) Document 09/04/18 22:00 DFA7515 (Rec: 09/04/18 22:44 IOA1619 ICU-M23) Document 09/04/18 23:00 TDB3121 (Rec: 09/04/18 23:12 QMK2877 ICU-C06) Document 09/05/18 00:00 VZG9737 (Rec: 09/05/18 01:12 KCQ8486 ICU-M23) Document 09/05/18 01:00 REB1070 (Rec: 09/05/18 01:12 ANY7864 ICU-M23) Document 09/05/18 01:49 CPX6359 (Rec: 09/05/18 01:49 NFS0055 ICU-M23) Document 09/05/18 02:00 ABT0791 (Rec: 09/05/18 02:05 UTZ5171 ICU-M23) Document 09/05/18 03:00 VSY7255 (Rec: 09/05/18 03:10 EKR0519 ICU-M23) Document 09/05/18 04:00 PXC3936 (Rec: 09/05/18 04:22 BFP8283 ICU-C06) Document 09/05/18 05:00 YLO7264 (Rec: 09/05/18 05:18 BXG5068 ICU-M23) Document 09/05/18 06:00 NRN6820 (Rec: 09/05/18 06:08 YBS8434 ICU-C06) Document 09/05/18 06:55 ECL0412 (Rec: 09/05/18 06:55 VRG8680 ICU-C06) Document 09/05/18 07:00 UGY8040 (Rec: 09/05/18 07:22 RFL6684 ICU-C12) Document 09/05/18 08:00 YPM8858 (Rec: 09/05/18 09:09 ITP9541 ICU-C12) Document 09/05/18 09:00 LBE8858 (Rec: 09/05/18 09:16 EGC2805 ICU-C12) Document 09/05/18 10:00 IEM0495 (Rec: 09/05/18 10:04 JJH3607 ICU-M23) Document 09/05/18 11:00 ORQ3768 (Rec: 09/05/18 11:45 HZR3124 ICU-C12) Document 09/05/18 12:00 BUN3258 (Rec: 09/05/18 12:48 ATE1711 ICU-C12) Document 09/05/18 13:00 TTY3928 (Rec: 09/05/18 13:16 JWP1401 ICU-C12) Document 09/05/18 14:00 LHI2219 (Rec: 09/05/18 14:14 HNE1623 ICU-C12) Document 09/05/18 15:00 VJT9090 (Rec: 09/05/18 15:43 TNE6546 ICU-C12) Document 09/05/18 16:00 JNK9619 (Rec: 09/05/18 16:37 ZRH0043 ICU-C12) Document 09/05/18 17:00 AUO6618 (Rec: 09/05/18 17:58 TTX6914 ICU-C12) Document 09/05/18 18:00 DDW2578 (Rec: 09/05/18 18:21 AIE4836 ICU-M23) Document 09/05/18 19:48 MGF1683 (Rec: 09/05/18 19:48 YGN4674 ICU-M23) Document 09/05/18 19:54 CZN0076 (Rec: 09/05/18 20:06 JJC2018 ICU-C25) Document 09/05/18 21:00 CEW4975 (Rec: 09/05/18 21:20 ETZ1878 ICU-M23) Document 09/05/18 21:52 DRN4811 (Rec: 09/05/18 21:52 RPI4013 ICU-M23) Document 09/05/18 23:00 ATI8078 (Rec: 09/05/18 23:08 JIS2747 ICU-C12) Document 09/05/18 23:48 HIU5596 (Rec: 09/05/18 23:48 ASZ4776 ICU-M23) Document 09/06/18 01:00 WOK1935 (Rec: 09/06/18 01:04 ATC4531 ICU-C12) Document 09/06/18 02:00 NWM7870 (Rec: 09/06/18 02:09 QYN9916 ICU-C12) Document 09/06/18 04:00 PSP0145 (Rec: 09/06/18 04:17 ZNF2589 ICU-M23) Document 09/06/18 05:00 FTS4885 (Rec: 09/06/18 05:06 ICQ3691 ICU-M23) Document 09/06/18 05:07 KHB2541 (Rec: 09/06/18 05:07 SXM4750 ICU-M23) Document 09/06/18 06:35 DRP6012 (Rec: 09/06/18 06:35 BNC9166 ICU-M23) Document 09/06/18 07:00 FFG2708 (Rec: 09/06/18 09:01 YOZ7842 ICU-M23) Document 09/06/18 08:00 FJP4288 (Rec: 09/06/18 09:01 PAD8245 ICU-M23) Document 09/06/18 09:00 QPN2767 (Rec: 09/06/18 09:01 GPD7354 ICU-M23) Document 09/06/18 10:00 GSD6628 (Rec: 09/06/18 10:16 MAE9216 ICU-C12) Document 09/06/18 11:00 CRX2610 (Rec: 09/06/18 11:48 FRI3304 ICU-C12) Document 09/06/18 12:00 BVI8160 (Rec: 09/06/18 12:20 GMV1925 ICU-C12) Document 09/06/18 13:00 QWY6856 (Rec: 09/06/18 13:50 VBA4890 ICU-C11) Document 09/06/18 13:00 FJZ3936 (Rec: 09/06/18 13:57 MOE1509 ICU-L03) Document 09/06/18 15:00 DEI8754 (Rec: 09/06/18 15:13 BCB5822 ICU-M23) Document 09/06/18 16:00 GNG4296 (Rec: 09/06/18 16:40 UQP1727 ICU-C12) Document 09/06/18 17:14 UAE2749 (Rec: 09/06/18 17:14 VNB1901 ICU-C12) Document 09/06/18 18:00 LJQ9138 (Rec: 09/06/18 18:01 PSN4296 ICU-M23) Document 09/06/18 18:27 YML1142 (Rec: 09/06/18 18:27 EZT6822 ICU-M23) Document 09/06/18 18:27 ATJ0604 (Rec: 09/06/18 18:28 GKS4234 ICU-M23) Document 09/06/18 18:29 XAL8389 (Rec: 09/06/18 18:30 GLL8401 ICU-M23) Document 09/06/18 19:00 MAA0565 (Rec: 09/06/18 19:21 FJI1045 ICU-M23) Document 09/06/18 22:00 MSX0060 (Rec: 09/06/18 22:33 ESS8558 ICU-M23) Document 09/06/18 23:00 GLL8320 (Rec: 09/06/18 23:46 ETY9383 ICU-M23) Document 09/06/18 23:55 GXG0126 (Rec: 09/06/18 23:56 QIT9558 ICU-M23) Document 09/07/18 00:58 KIB1597 (Rec: 09/07/18 00:58 GSK0069 ICU-M23) Document 09/07/18 02:00 RJC4773 (Rec: 09/07/18 02:58 YWK7678 ICU-M23) Document 09/07/18 02:59 SFI7601 (Rec: 09/07/18 02:59 QCR1211 ICU-M23) Document 09/07/18 04:00 SPZ2145 (Rec: 09/07/18 05:04 IWC4375 ICU-C12) Document 09/07/18 05:00 VEC1404 (Rec: 09/07/18 05:05 QYC9989 ICU-C12) Document 09/07/18 06:00 ATD3695 (Rec: 09/07/18 06:22 PZW5373 ICU-M23) Document 09/07/18 06:59 CJR7732 (Rec: 09/07/18 06:59 DQJ9777 ICU-M23) Document 09/07/18 07:00 LIQ9522 (Rec: 09/07/18 07:01 SRU2244 ICU-M23) Document 09/07/18 08:00 HUC8017 (Rec: 09/07/18 08:14 VLH0125 ICU-M23) Document 09/07/18 09:00 VLE6880 (Rec: 09/07/18 09:38 XZS5324 ICU-M23) Document 09/07/18 10:00 PPZ0677 (Rec: 09/07/18 11:01 TTD0601 ICU-M23) Document 09/07/18 11:00 POV1907 (Rec: 09/07/18 11:01 HVT0536 ICU-M23) Document 09/07/18 13:00 LHC2322 (Rec: 09/07/18 13:15 RLJ3559 ICU-M23) Document 09/07/18 14:00 GAO9223 (Rec: 09/07/18 16:39 CCL0976 ICU-M23) Document 09/07/18 15:00 QVE7875 (Rec: 09/07/18 16:39 DLL7009 ICU-M23) Document 09/07/18 16:00 NKF8844 (Rec: 09/07/18 16:39 DCO4657 ICU-M23) Document 09/07/18 16:52 ULM2712 (Rec: 09/07/18 16:52 DYM8495 ICU-M23) Document 09/07/18 17:00 CFK0571 (Rec: 09/07/18 18:18 SGQ2674 ICU-M23) Document 09/07/18 18:00 JHK9566 (Rec: 09/07/18 18:18 GWS4784 ICU-M23) Document 09/07/18 18:19 RDA8784 (Rec: 09/07/18 18:19 FIG1295 ICU-M23) Document 09/07/18 18:23 PRJ1459 (Rec: 09/07/18 18:23 FBA7399 ICU-M23) Document 09/07/18 19:00 INE6377 (Rec: 09/07/18 19:49 QQT1546 ICU-M23) Document 09/07/18 19:50 QVZ5124 (Rec: 09/07/18 20:03 LPE9024 ICU-M23) Document 09/07/18 21:00 ZAK8827 (Rec: 09/07/18 21:18 DQQ6116 ICU-M23) Document 09/07/18 21:54 AHQ4419 (Rec: 09/07/18 21:54 DQT0834 ICU-M23) Document 09/07/18 23:00 EXQ3493 (Rec: 09/07/18 23:26 CFW8003 ICU-M23) Document 09/08/18 00:00 FPU3503 (Rec: 09/08/18 01:06 WOP6365 ICU-C12) Document 09/08/18 01:00 GTS2332 (Rec: 09/08/18 01:07 YYG7103 ICU-C12) Document 09/08/18 02:00 IYX1981 (Rec: 09/08/18 02:27 UIZ0415 ICU-M23) Document 09/08/18 03:00 NGM4095 (Rec: 09/08/18 03:06 VND0357 ICU-C12) Document 09/08/18 04:00 OPJ3680 (Rec: 09/08/18 04:58 EDQ3556 ICU-M23) Document 09/08/18 04:59 AFF8236 (Rec: 09/08/18 04:59 MFY2832 ICU-M23) Document 09/08/18 05:08 KZG5718 (Rec: 09/08/18 05:08 OAS8433 ICU-M23) Document 09/08/18 05:47 HOM5047 (Rec: 09/08/18 05:50 DRQ7121 ICU-M23) Document 09/08/18 07:00 CCY7245 (Rec: 09/08/18 09:42 IKE8543 ICU-C06) Document 09/08/18 08:00 QNF2478 (Rec: 09/08/18 10:46 IKW9311 ICU-C06) Document 09/08/18 09:00 VNE4019 (Rec: 09/08/18 10:54 HZR3021 ICU-C06) Document 09/08/18 10:00 CNQ3787 (Rec: 09/08/18 10:54 DHF5666 ICU-C06) Document 09/08/18 10:54 NAE6395 (Rec: 09/08/18 10:54 VQT0878 ICU-C06) Document 09/08/18 12:00 ZUZ5451 (Rec: 09/08/18 13:24 VQI6460 ICU-C06) Document 09/08/18 13:00 KGP9642 (Rec: 09/08/18 13:24 OEN5004 ICU-C06) Document 09/08/18 17:00 RQV0556 (Rec: 09/08/18 17:57 LID4648 ICU-C12) Document 09/08/18 18:00 IWQ8557 (Rec: 09/08/18 18:09 URQ1180 ICU-C12) Document 09/08/18 19:00 HOR6150 (Rec: 09/08/18 19:10 NJK6753 ICU-M23) Document 09/08/18 20:00 BEF8436 (Rec: 09/08/18 20:20 YFC1923 ICU-M23) Document 09/08/18 20:40 TMS5460 (Rec: 09/08/18 20:41 SYA4002 ICU-C25) Document 09/08/18 20:52 WRR7456 (Rec: 09/08/18 20:52 ZWG4333 ICU-C25) Document 09/08/18 21:41 PBA9563 (Rec: 09/08/18 21:43 OQE6645 ICU-M23) Document 09/08/18 23:00 YUG3083 (Rec: 09/08/18 23:37 KWR8508 ICU-C25) Document 09/09/18 00:00 SMY2939 (Rec: 09/09/18 00:14 NIP6363 ICU-M23) Document 09/09/18 01:00 EVW6823 (Rec: 09/09/18 01:14 SSW7825 ICU-C25) Document 09/09/18 01:58 WHN6203 (Rec: 09/09/18 01:59 ZSE7424 ICU-C25) Document 09/09/18 03:00 THN9998 (Rec: 09/09/18 03:18 WKS6283 ICU-C25) Document 09/09/18 04:00 QFC9593 (Rec: 09/09/18 04:25 BVN7660 ICU-C25) Document 09/09/18 05:00 QHV6180 (Rec: 09/09/18 05:49 UVE6407 ICU-C25) Document 09/09/18 06:00 WOQ3101 (Rec: 09/09/18 06:03 SCB1398 ICU-M23) Document 09/09/18 07:00 HXJ7403 (Rec: 09/09/18 08:57 KXY6366 ICU-C15) Document 09/09/18 08:00 BYV8288 (Rec: 09/09/18 09:06 CSL6994 ICU-C15) Document 09/09/18 08:00 PXN9276 (Rec: 09/09/18 18:34 [id number] ICU-M23) Document 09/09/18 09:00 VZW2418 (Rec: 09/09/18 09:06 OTS5922 ICU-C15) Document 09/09/18 10:00 DXK6827 (Rec: 09/09/18 13:20 MSO0589 ICU-C15) Document 09/09/18 11:00 NLT0548 (Rec: 09/09/18 13:20 IUJ9968 ICU-C15) Document 09/09/18 12:00 MXE4310 (Rec: 09/09/18 13:20 KSE5878 ICU-C15) Document 09/09/18 13:00 TLG4402 (Rec: 09/09/18 13:20 GHO9981 ICU-C15) Document 09/09/18 14:49 SFU4242 (Rec: 09/09/18 14:49 XXY7251 ICU-M23) Document 09/09/18 15:00 FGW7766 (Rec: 09/09/18 16:13 YTC4996 ICU-M23) Document 09/09/18 16:00 UME9085 (Rec: 09/09/18 16:13 NWQ0902 ICU-M23) Document 09/09/18 17:00 XZS8074 (Rec: 09/09/18 18:32 QLJ1482 ICU-M23) Document 09/09/18 18:00 TFQ2097 (Rec: 09/09/18 18:32 MHQ4402 ICU-M23) Document 09/09/18 19:00 LVE5091 (Rec: 09/09/18 19:51 FBS7498 ICU-C14) Document 09/09/18 19:51 PDB9233 (Rec: 09/09/18 19:53 ADF0241 ICU-C14) Document 09/09/18 21:00 CCE1389 (Rec: 09/09/18 21:31 IPX6480 ICU-M23) Document 09/09/18 21:55 WOC2525 (Rec: 09/09/18 21:57 CJL5856 ICU-C14) Document 09/09/18 23:00 OAI5579 (Rec: 09/09/18 23:49 BXG9382 ICU-C14) Document 09/09/18 23:50 YXR7643 (Rec: 09/09/18 23:53 GDV6244 ICU-C14) Document 09/10/18 00:55 YWK0846 (Rec: 09/10/18 00:57 TWR0890 ICU-C14) Document 09/10/18 02:00 UBJ7186 (Rec: 09/10/18 02:03 WEJ9789 ICU-C14) Document 09/10/18 02:49 IKB2409 (Rec: 09/10/18 02:50 SYU8552 ICU-C14) Document 09/10/18 03:59 EAZ3672 (Rec: 09/10/18 04:00 LLW5441 ICU-M23) Document 09/10/18 05:00 SVN6124 (Rec: 09/10/18 05:24 DZG4520 ICU-M23) Document 09/10/18 05:58 LWV7733 (Rec: 09/10/18 05:59 LRL7349 ICU-C14) Document 09/10/18 07:00 QAJ5571 (Rec: 09/10/18 07:42 WJG6215 ICU-C12) Document 09/10/18 08:00 GHY2705 (Rec: 09/10/18 08:55 GPB3405 ICU-C12) Document 09/10/18 09:00 ZYS4150 (Rec: 09/10/18 09:49 QVB6683 ICU-C12) Document 09/10/18 09:59 TWG8808 (Rec: 09/10/18 10:00 TTC0385 ICU-C12) Document 09/10/18 11:00 IBR0395 (Rec: 09/10/18 11:12 QGL6341 ICU-C12) Document 09/10/18 12:00 ERP5446 (Rec: 09/10/18 12:57 WEK1400 ICU-C12) Document 09/10/18 13:00 YPE3935 (Rec: 09/10/18 13:37 GKF9225 ICU-C12) Document 09/10/18 14:00 JZY1734 (Rec: 09/10/18 16:30 BPW8194 ICU-C12) Document 09/10/18 15:00 PVS7580 (Rec: 09/10/18 16:35 TVN2393 ICU-C12) Document 09/10/18 16:00 JXQ1133 (Rec: 09/10/18 16:51 VIB2166 ICU-C12) Document 09/10/18 17:00 OTC4271 (Rec: 09/10/18 17:06 AXF6286 ICU-C12) Document 09/10/18 18:00 VFJ8150 (Rec: 09/10/18 18:19 XML8001 ICU-M23) Document 09/10/18 18:30 GXN2450 (Rec: 09/10/18 19:05 FTG9698 ICU-C12) Document 09/10/18 19:00 QMG8790 (Rec: 09/10/18 21:56 HVN4348 ICU-C06) Document 09/10/18 20:00 GEP6992 (Rec: 09/10/18 21:56 VTO7815 ICU-C06) Document 09/10/18 21:00 LGU4266 (Rec: 09/10/18 21:56 AFS9645 ICU-C06) Document 09/10/18 23:00 DMS2385 (Rec: 09/10/18 23:06 BUA0069 ICU-M23) Document 09/11/18 00:00 NDA5398 (Rec: 09/11/18 00:15 KVP9807 ICU-C06) Document 09/11/18 01:00 CFI3194 (Rec: 09/11/18 01:00 BII3223 ICU-M23) Document 09/11/18 02:00 BXI6840 (Rec: 09/11/18 02:35 MSZ7966 ICU-C06) Document 09/11/18 02:56 FZW7494 (Rec: 09/11/18 02:57 SMV3861 ICU-M23) Document 09/11/18 04:00 AID5634 (Rec: 09/11/18 04:13 OXS2276 ICU-C06) Document 09/11/18 05:00 LZA0314 (Rec: 09/11/18 05:07 SHK9784 ICU-M23) Document 09/11/18 06:00 UOE8213 (Rec: 09/11/18 06:13 TAK3362 ICU-C06) Document 09/11/18 06:22 STY6849 (Rec: 09/11/18 06:22 VRM3352 ICU-M23) Document 09/11/18 08:00 HZI9135 (Rec: 09/11/18 09:10 SNY4578 ICU-C12) Document 09/11/18 09:00 XJT4475 (Rec: 09/11/18 10:51 YXQ6716 ICU-C12) Document 09/11/18 10:00 CHR6547 (Rec: 09/11/18 10:52 YZR1536 ICU-C12) Document 09/11/18 10:52 ISF7801 (Rec: 09/11/18 10:52 WOC2034 ICU-C12) Document 09/11/18 11:45 KPH7873 (Rec: 09/11/18 11:45 FRQ9165 ICU-C12) Document 09/11/18 13:00 PES8651 (Rec: 09/11/18 14:13 OQN7315 ICU-C12) Document 09/11/18 14:00 PEY5320 (Rec: 09/11/18 14:18 UED8937 ICU-C12) Document 09/11/18 15:47 NKQ1694 (Rec: 09/11/18 15:59 KOM4938 ICU-C12) Document 09/11/18 17:00 VHH8631 (Rec: 09/11/18 17:22 SEX7258 ICU-C12) Document 09/11/18 17:39 YIR2781 (Rec: 09/11/18 17:39 PEJ0405 ICU-C12) Document 09/11/18 18:00 SSY9412 (Rec: 09/11/18 18:06 YKV4683 ICU-C12) Document 09/11/18 19:00 PJL3893 (Rec: 09/11/18 19:20 WCR5655 ICU-C06) Document 09/11/18 20:00 WSN3055 (Rec: 09/11/18 20:22 MIQ1537 ICU-C06) Document 09/11/18 21:00 AEZ1109 (Rec: 09/11/18 21:10 PMT1229 ICU-C06) Document 09/11/18 22:00 VFI6965 (Rec: 09/11/18 22:36 LMP5629 ICU-M23) Document 09/11/18 22:57 YLX3692 (Rec: 09/11/18 22:57 EIO1347 ICU-C06) Document 09/12/18 00:00 VOL8618 (Rec: 09/12/18 00:04 TRJ1146 ICU-C06) Document 09/12/18 00:59 HHX9297 (Rec: 09/12/18 01:01 PEU0334 ICU-C06) Document 09/12/18 02:00 YDI8740 (Rec: 09/12/18 02:05 QHH7322 ICU-C06) Document 09/12/18 02:58 IMJ3191 (Rec: 09/12/18 02:58 TEP6271 ICU-C06) Document 09/12/18 04:00 ZTV4993 (Rec: 09/12/18 04:09 HTB1677 ICU-C06) Document 09/12/18 05:00 HKC7374 (Rec: 09/12/18 05:20 MLR9421 ICU-M23) Document 09/12/18 05:58 LPC4883 (Rec: 09/12/18 05:59 IBT1869 ICU-C06) Document 09/12/18 07:00 SDA2626 (Rec: 09/12/18 07:22 VOO9414 ICU-C12) Document 09/12/18 08:00 ZTY0760 (Rec: 09/12/18 08:27 WOC2720 ICU-C12) Document 09/12/18 09:00 LDT4145 (Rec: 09/12/18 09:23 FBF8083 ICU-M23) Labs: Laboratory Results - last 24 hr 09/11/18 09/11/18 09/11/18 08:50 11:15 12:15 WBC 27.9 H RBC 2.90 L Hgb 8.1 L Hct 25 L MCV 86 MCH 28 MCHC 33 RDW 16 H Plt Count 231 MPV 8.5 Neut % (Auto) 91.8 Lymph % (Auto) 1.9 [place] % (Auto) 6.0 Eos % (Auto) 0.1 Baso % (Auto) 0.2 Absolute Neuts (auto) 25.6 H Absolute Lymphs (auto) 0.5 L Absolute Monos (auto) 1.7 H Absolute Eos (auto) 0.0 Absolute Basos (auto) 0.1 Absolute Nucleated RBC 0.0 Nucleated RBC % 0.0 INR (Anticoag Therapy) Patient Temperature Not Reportable ABG pH 7.48 H ABG pH (Temp Correct) Not Reportable ABG pCO2 34 L ABG pCO2 (Temp Corrct Not Reportable ABG pO2 76 L ABG pO2 (Temp Correct Not Reportable ABG HCO3 26.6 ABG O2 Saturation 98.1 H ABG Base Excess 2.2 H Respiration Rate Not Reportable Ventilator Type Not Reportable Vent Mode cpap FiO2 35 Inspiratory Time 10 PEEP 8 Pressure Support Not Reportable Pressure Control Not Reportable EPAP Not Reportable IPAP Not Reportable BiPAP Not Reportable Sodium Potassium Chloride Carbon Dioxide Anion Gap BUN Creatinine Est GFR ( Amer) Est GFR (Non-Af Amer) BUN/Creatinine Ratio Glucose Calcium Phosphorus 3.0 Magnesium 2.1 Troponin I 0.05 H* 09/11/18 09/11/18 09/12/18 12:15 16:30 05:30 WBC RBC Hgb Hct MCV MCH MCHC RDW Plt Count MPV Neut % (Auto) Lymph % (Auto) Putnam % (Auto) Eos % (Auto) Baso % (Auto) Absolute Neuts (auto) Absolute Lymphs (auto) Absolute Monos (auto) Absolute Eos (auto) Absolute Basos (auto) Absolute Nucleated RBC Nucleated RBC % INR (Anticoag Therapy) 1.03 Patient Temperature Not Reportable ABG pH 7.50 H ABG pH (Temp Correct) Not Reportable ABG pCO2 36 ABG pCO2 (Temp Corrct Not Reportable ABG pO2 82 ABG pO2 (Temp Correct Not Reportable ABG HCO3 28.7 ABG O2 Saturation 98.8 H ABG Base Excess 4.9 H Respiration Rate 18 Ventilator Type 350 Vent Mode cmv FiO2 35 Inspiratory Time 0.8 PEEP 8 Pressure Support Not Reportable Pressure Control Not Reportable EPAP Not Reportable IPAP Not Reportable BiPAP Not Reportable Sodium 141 Potassium 3.8 Chloride 105 Carbon Dioxide 29 Anion Gap 7 BUN 15 Creatinine 0.43 L Est GFR ( Amer) 174.2 Est GFR (Non-Af Amer) 143.9 BUN/Creatinine Ratio 34.9 H Glucose 105 H Calcium 8.0 L Phosphorus Magnesium Troponin I 09/12/18 05:30 WBC 25.4 H RBC 3.07 L Hgb 8.5 L Hct 26 L MCV 86 MCH 28 MCHC 32 RDW 16 H Plt Count 264 MPV 8.6 Neut % (Auto) 89.9 Lymph % (Auto) 2.8 Putnam % (Auto) 6.8 Eos % (Auto) 0.2 Baso % (Auto) 0.3 Absolute Neuts (auto) 22.8 H Absolute Lymphs (auto) 0.7 L Absolute Monos (auto) 1.7 H Absolute Eos (auto) 0.1 Absolute Basos (auto) 0.1 Absolute Nucleated RBC 0.0 Nucleated RBC % 0.0 INR (Anticoag Therapy) Patient Temperature ABG pH ABG pH (Temp Correct) ABG pCO2 ABG pCO2 (Temp Corrct ABG pO2 ABG pO2 (Temp Correct ABG HCO3 ABG O2 Saturation ABG Base Excess Respiration Rate Ventilator Type Vent Mode FiO2 Inspiratory Time PEEP Pressure Support Pressure Control EPAP IPAP BiPAP Sodium Potassium Chloride Carbon Dioxide Anion Gap BUN Creatinine Est GFR ( Amer) Est GFR (Non-Af Amer) BUN/Creatinine Ratio Glucose Calcium Phosphorus Magnesium Troponin I Nutrition: NPO for planned tracheostomy today Once TF resumed- Jevity at 70cc/h Impression: 73 F with prolonged intubation/mechanical ventilation admitted on perforated sigmoid colon in the setting of diverticultis Plan: # Ex-lap x 3 for perforated sigmoid colon diverticulitis # Sepsis/septic shock-resolved # Acute respiratory failure, now prolonged intubation and mechanical ventilation # Progressive leukocytosis- non toxic appearance, improving values # Anemia- H/H stable, no S/Sx of acute/active blood loss # 1/5 Staog negative BCX, likely contaminant # Respiratory alkalosis due to tachypnea # anasarca, pleural effusion # Critical illness polyneuromyopathy - Surgical management as per Dr. Sanchez - Continue with zosyn and antifungal x 14 days - Blood cultures x 2 09/10- final pending - Currently on AC mode of ventilation for tachypnea. Patient's RR has decreased to 27 with light sedation - prn oxycodone for pain control - Discontinue albumin and lasix for now - Considering the persistent tachypnea, proximal muscle weakness, I recommend tracheostomy due to concerns of difficulty to weane mechanical ventilation. ENT consult requested for tracheostomy tomorrow. Will discuss with family. - Planned trach by ENT today PPX DVT- SQH GI- H2B Prognosis: guarded/critical Code: Full Dispo: Monitor in MICU Critical Care Time: 35 minutes
--- NOTE | 2018-09-12 11:22 | PN ---
Progress Note - Progress Note Date of Service: 09/12/18 SOAP: Subjective: Sedated on ventilator Tolerating tube feeds at goal Care reviewed with nursing Objective: Temp Pulse Resp BP Pulse Ox 99.0 F 85 32 110/61 91 09/12/18 10:00 09/12/18 10:00 09/12/18 10:00 09/12/18 09:00 09/12/18 10:00 Intake & Output 09/10/18 09/11/18 09/12/18 09/13/18 06:59 06:59 06:59 06:59 Intake Total 1272 4301 2167 Output Total 1595 3090 6145 405 Balance -323 1211 -3978 -405 Weight 169 lb 1.6 oz 171 lb 13.225 oz 158 lb 9.6 oz Intake: IV Fluids 270 2178 1014 ABX - ZOSYN 100 100 Albumin 200 Anidulafungin 0 NS 270 1819 171 kcl 293 potassium Phosphate 259 250 IVPB 107 340 ABX - ZOSYN 107 110 Albumin 100 Anidulafungin 130 Medicated IV 108 145 CC - Dexmedetomidine/ 58 Precedex GEN - Magnesium 50 propofol 145 Oral 0 0 Tube Feeding 895 1610 878 Tube Feeding Flush Amount 65 130 NG Tube Irrigate Amount 0 0 Output: NG Tube Drainage Amount 0 0 Wound Vac 100 0 Urine 0 Frost 770 2715 5320 180 Liquid Stool 75 350 Colostomy 825 200 475 225 Estimated Blood Loss 0 0 Other: Date of Last Bowel 09/10/18 09/10/18 09/12/18 Movement PEX: Comfortable on ventilator Abd is soft and distended. Bowel sounds are present. Ostomy pink with soft brown stool in bag. Wound vac changed. Biologic mesh in place-subcutaneous fat with brownish discoloration in areas, viable. No odor or purulence. Laboratory Results - last 24 hr 09/11/18 09/11/18 09/11/18 11:15 12:15 12:15 WBC 27.9 H RBC 2.90 L Hgb 8.1 L Hct 25 L MCV 86 MCH 28 MCHC 33 RDW 16 H Plt Count 231 MPV 8.5 Neut % (Auto) 91.8 Lymph % (Auto) 1.9 Arthur % (Auto) 6.0 Eos % (Auto) 0.1 Baso % (Auto) 0.2 Absolute Neuts (auto) 25.6 H Absolute Lymphs (auto) 0.5 L Absolute Monos (auto) 1.7 H Absolute Eos (auto) 0.0 Absolute Basos (auto) 0.1 Absolute Nucleated RBC 0.0 Nucleated RBC % 0.0 INR (Anticoag Therapy) 1.03 Patient Temperature Not Reportable ABG pH 7.48 H ABG pH (Temp Correct) Not Reportable ABG pCO2 34 L ABG pCO2 (Temp Corrct Not Reportable ABG pO2 76 L ABG pO2 (Temp Correct Not Reportable ABG HCO3 26.6 ABG O2 Saturation 98.1 H ABG Base Excess 2.2 H Respiration Rate Not Reportable Ventilator Type Not Reportable Vent Mode cpap FiO2 35 Inspiratory Time 10 PEEP 8 Pressure Support Not Reportable Pressure Control Not Reportable EPAP Not Reportable IPAP Not Reportable BiPAP Not Reportable Sodium Potassium Chloride Carbon Dioxide Anion Gap BUN Creatinine Est GFR ( Amer) Est GFR (Non-Af Amer) BUN/Creatinine Ratio Glucose Calcium 09/11/18 09/12/18 09/12/18 16:30 05:30 05:30 WBC 25.4 H RBC 3.07 L Hgb 8.5 L Hct 26 L MCV 86 MCH 28 MCHC 32 RDW 16 H Plt Count 264 MPV 8.6 Neut % (Auto) 89.9 Lymph % (Auto) 2.8 Arthur % (Auto) 6.8 Eos % (Auto) 0.2 Baso % (Auto) 0.3 Absolute Neuts (auto) 22.8 H Absolute Lymphs (auto) 0.7 L Absolute Monos (auto) 1.7 H Absolute Eos (auto) 0.1 Absolute Basos (auto) 0.1 Absolute Nucleated RBC 0.0 Nucleated RBC % 0.0 INR (Anticoag Therapy) Patient Temperature Not Reportable ABG pH 7.50 H ABG pH (Temp Correct) Not Reportable ABG pCO2 36 ABG pCO2 (Temp Corrct Not Reportable ABG pO2 82 ABG pO2 (Temp Correct Not Reportable ABG HCO3 28.7 ABG O2 Saturation 98.8 H ABG Base Excess 4.9 H Respiration Rate 18 Ventilator Type 350 Vent Mode cmv FiO2 35 Inspiratory Time 0.8 PEEP 8 Pressure Support Not Reportable Pressure Control Not Reportable EPAP Not Reportable IPAP Not Reportable BiPAP Not Reportable Sodium 141 Potassium 3.8 Chloride 105 Carbon Dioxide 29 Anion Gap 7 BUN 15 Creatinine 0.43 L Est GFR ( Amer) 174.2 Est GFR (Non-Af Amer) 143.9 BUN/Creatinine Ratio 34.9 H Glucose 105 H Calcium 8.0 L Cultures noted Assessment: S/P exlap X 3 for perforated sigmoid colon with colostomy, peritonitis Sepsis-improved Leukocytosis- Blood cultures noted-felt to be contaminant Ventilator dependence Plan: IV abx Vent wean Tube feeds Tracheostomy today Wound and colostomy care-wound vac changed today Discussed care with Dr. Ramirez today
[2018-09-12] MEDS: Anidulafungin* 100 MG in NS 0.9% 100 ML* 100 ML IVPB SCH (14:04)
[2018-09-12] MEDS ORDERED: Midazolam* 1 MG/ML 5 ML VIAL (5 MG) ONE (16:35)
[2018-09-12] MEDS ORDERED: fentaNYL* 50 MCG/ML 2 ML VIAL (100 MCG VIAL) ONE (16:35)
[2018-09-12] MEDS ORDERED: Lidocaine 1% MPF wEPI 200,000* 30 ML SDV ONE (17:15)
[2018-09-12] MEDS ORDERED: EPHEDrine (Pressors)* 50 MG/ML VIAL ONE (17:30)
[2018-09-12] MEDS ORDERED: NS 0.9% 500 ML* 500 ML IV ONE (19:27)
--- NOTE | 2018-09-12 21:08 | OP ---
OPERATIVE REPORT: DATE OF OPERATION: 09/12/18 - Inpatient, room [facility]FV91-70 DATE OF : 45 SURGEON: Vamsi Dickosn MD ANESTHESIOLOGIST: Jennie Donovan MD ANESTHESIA: General. PRE-OP DIAGNOSIS: Respiratory failure. POST-OP DIAGNOSIS: Respiratory failure. OPERATIVE PROCEDURE: Tracheostomy. BRIEF HISTORY: This 73-year-old female, prolonged intubation, has a significant abdominal surgery with sepsis. DESCRIPTION OF PROCEDURE: The patient was taken to the operating room, general anesthetic was already instituted. Neck was then prepped and draped in usual fashion. 2% lidocaine with epinephrine was infiltrated into the mucosa of the skin. Incision was made in the skin. Subplatysmal flaps were elevated. Strap muscle was identified in midline and retracted out laterally, thyroid mid portion was identified and divided at the midline. Tracheal cartilage was identified. Second ring was incised and partially excised. A #6 Shiley was placed. The unit was transferred to the anesthesiologist. Once confirmed ventilating. An NG tube was placed. This was confirmed with air in the stomach. Secured in place. The patient was then awakened slightly and transferred to the ICU for further ventilation. [id number]/CPS #: [id number] MTDD
--- NOTE | 2018-09-12 21:48 | PN ---
Progress Note - Progress Note Date of Service: 09/12/18 Note: Asked to look at CXR, taken due to placement of dubhoff tube. Reviewed X-ray, tube clearly in stomach, below diaphragm. May use for tube feeds.
[2018-09-13] MEDS: Chlorhexidine MOUTHWASH 0.12%* 15 ML UDC TOPICAL SCH ×6 (04:09→23:48)
[2018-09-13] MEDS: Acetaminophen ADULT LIQ* 650 MG/20.3 ML UDC G TUBE SCH ×4 (04:09→22:30)
[2018-09-13 04:17] LABS: ABS Basophils 0.1 10^3/ul (0-0.2); ABS Lymphocytes 0.6 10^3/ul (1.0-4.8); ABS Monocytes 1.4 10^3/ul (0-0.8); ABS Neutrophils 18.4 10^3/ul (1.5-7.7); Eosinophil % 0.2 %; Hematocrit 26 % (35-47); Hemoglobin 8.3 g/dL (12.0-16.0); Lymphocyte % 2.7 %; Mean Corpuscular HGB Conc 32 g/dL (31-36); Mean Corpuscular Hemoglobin 27 pg (27-31); Mean Corpuscular Volume 85 fL (80-97); Mean Platelet Volume 8.5 fL (7.4-10.4); Platelet Count 292 10^3/uL (150-450); Red Blood Count 3.07 10^6 /uL (3.70-4.87); Red Cell Distribution Width 16 % (10.5-15); White Blood Count 20.5 10^3/uL (3.5-10.8)
[2018-09-13 04:33] LABS: Albumin 2.6 g/dL (3.2-5.2); Calcium 7.8 mg/dL (8.6-10.3); EGFR African American 157.2 (>60); EGFR Non-African American 129.9 (>60); Globulin 2.5 g/dL (2-4); Potassium 3.9 mmol/L (3.5-5.0); Total Bilirubin 0.4 mg/dL (0.2-1.0); Total Protein 5.1 g/dL (6.4-8.9)
[2018-09-13] MEDS: Heparin VIAL(*) 5000 UNITS/ML VIAL (FIVE THOUSAND) SUBCUT SCH ×3 (05:49→21:30)
[2018-09-13] MEDS: PTO:Budesonide/Formote 160/4.5(NF) MDI INH SCH ×2 (07:48→20:09)
[2018-09-13] MEDS: Famotidine IV* 10 MG/ML 2 ML (20 mg) IV SCH (08:31)
[2018-09-13] MEDS ORDERED: Calcium Gluconate INJ* 1 GM in NS 0.9% 50 ML* 50 ML IVPB ONE (10:30)
--- NOTE | 2018-09-13 11:06 | PN ---
Date of Service: 09/13/18 Critical Care Services: 73 F with prolonged intubation/mechanical ventilation - Patient seen and examined at the bedside - 09/12/18: s/p tracheostomy placement #6 shiley by ENT - off sedation and analgesia gtt - more awake today - tolerating PS 8/PEEP 8 - Comfortable - No significant overnight events - 04/21 BCx + Staph negative Vital Signs: Temp Pulse Resp BP SpO2 FiO2 99.3 F 85 28 136/68 97 40 09/13/18 10:09/13/18 10:00 09/13/18 10:00 09/13/18 10:09/13/18 10:09/13 08:00 Physical Exam: Gen:NAD, Awake and more interactive HEENT:NCAT, PERRL, neck supple, tracheostomy in place Lungs:CTAB Cardiac: +S1S2, RRR Abdomen:Colostomy functional, soft, normoactive bowel sounds; wound vac in abdominal midline Extremities:edema- LE including dorsum of feet and hands Neuro:nonfocal; Grossly nonfocal Fluid Balance (Past 24 Hours): I= O= Net Intake & Output 09/11/18 09/12/18 09/13/18 09/14/18 06:59 06:59 06:59 06:59 Intake Total 4301 2167 1427 0 Output Total 3090 6145 1540 385 Balance 1211 -3978 -113 -385 Weight 171 lb 13.225 oz 158 lb 9.6 oz 168 lb 11.2 oz Intake: IV Fluids 2178 1014 810 ABX - ZOSYN 100 100 109 Albumin 200 Anidulafungin 0 NS 1819 171 701 kcl 293 potassium Phosphate 259 250 IVPB 340 ABX - ZOSYN 110 Albumin 100 Anidulafungin 130 Medicated IV 108 145 76 CC - Dexmedetomidine/ 58 Precedex GEN - Magnesium 50 propofol 145 76 Oral 0 0 0 0 Tube Feeding 1610 878 541 Tube Feeding Flush Amount 65 130 NG Tube Irrigate Amount 0 0 0 Output: NG Tube Drainage Amount 0 0 Wound Vac 100 0 0 0 Urine 0 Frost 2655 5320 1165 85 Liquid Stool 75 350 150 300 Colostomy 200 475 225 Estimated Blood Loss 0 0 0 Other: Estimated Void Small Date of Last Bowel 09/10/18 09/12/18 09/13/18 Movement # Bowel Movements 1 Estimated Stool Amount Large # Voids 1 ADLs: Meal Record Start: 08/29/18 16: 46 Freq: Status: Complete Protocol: Created 08/29/18 16:46 System (Rec: 08/29/18 16:46 System SSU-C12) Document 08/31/18 08:14 [id number] (Rec: 08/31/18 08:14 HKD7148 SSU-C04) Document 08/31/18 12:24 KKS5998 (Rec: 08/31/18 12:25 FOV7520 SSU-C04) ADLs: Meal Record Start: 08/31/18 17: 06 Freq: 09,13,18 Status: Inactive Protocol: Created 08/31/18 17:06 PRQ8073 (Rec: 08/31/18 17:06 SJL0864 ICU-M23) Document 08/31/18 18:00 KLK4987 (Rec: 08/31/18 20:04 BAF5361 ICU-C21) Intake and Output Start: 08/29/18 09: 06 Freq: Status: Active Protocol: Created 08/29/18 09:06 System (Rec: 08/29/18 09:06 System EDRM-C04) Document 08/30/18 00:00 GMR0679 (Rec: 08/30/18 06:50 QSS8877 SSU-M14) Intake and Output Start: 08/29/18 16: 46 Freq: DAILY@0600,1400,2200 Status: Complete Protocol: Created 08/29/18 16:46 System (Rec: 08/29/18 16:46 System SSU-C12) Document 08/29/18 22:10 FRJ1545 (Rec: 08/29/18 22:11 JLY8968 SSU-M18) Document 08/30/18 03:59 COS4061 (Rec: 08/30/18 03:59 WPE8864 SSU-M14) Document 08/30/18 06:34 GTV7914 (Rec: 08/30/18 06:34 XHS2594 SSU-C09) Document 08/30/18 14:16 STH8575 (Rec: 08/30/18 14:16 XDP8619 SSU-C08) Document 08/30/18 18:30 QZB1789 (Rec: 08/30/18 22:44 GVK9929 SSU-M17) Document 08/30/18 22:44 KEU1100 (Rec: 08/30/18 22:46 DVU4110 SSU-M17) Document 08/31/18 01:13 XON4217 (Rec: 08/31/18 01:14 VGC0177 SSU-C03) Document 08/31/18 05:51 UBN2586 (Rec: 08/31/18 05:51 WWL8590 SSU-C03) Document 08/31/18 06:36 BRL1785 (Rec: 08/31/18 06:36 JHI6431 SSU-C03) Document 08/31/18 12:26 NNA1834 (Rec: 08/31/18 12:26 CDQ3171 SSU-C04) Document 08/31/18 14:19 LIA3985 (Rec: 08/31/18 14:20 IME3348 SSU-C04) Intake and Output Start: 08/31/18 17: 06 Freq: Q1HR Status: Active Protocol: Created 08/31/18 17:06 MEU5322 (Rec: 08/31/18 17:06 PLQ2220 ICU-M23) Document 08/31/18 18:00 JHY3088 (Rec: 08/31/18 20:04 WKJ8071 ICU-C21) Document 08/31/18 19:00 MTQ0341 (Rec: 09/01/18 01:29 PNG6022 ICU-C25) Document 08/31/18 20:00 NGV6257 (Rec: 09/01/18 01:41 LMQ7238 ICU-C25) Document 08/31/18 22:00 PNU4875 (Rec: 09/01/18 01:46 BGU4685 ICU-C25) Document 08/31/18 23:00 XXA6775 (Rec: 09/01/18 01:48 OQI6233 ICU-C25) Document 09/01/18 00:00 UBO2638 (Rec: 09/01/18 02:30 XNI4018 ICU-C25) Co-Sign 09/01/18 00:00 YSY9818 Document 09/01/18 01:00 OUZ0452 (Rec: 09/01/18 02:57 KVH5363 ICU-C25) Document 09/01/18 02:00 NKM6368 (Rec: 09/01/18 03:00 OJS1959 ICU-C25) Document 09/01/18 03:00 WIJ0738 (Rec: 09/01/18 03:07 DQO2494 ICU-C25) Document 09/01/18 04:00 VCT7000 (Rec: 09/01/18 04:17 BEF0878 ICU-C25) Document 09/01/18 05:00 RLI6104 (Rec: 09/01/18 05:13 TCO7822 ICU-C25) Document 09/01/18 06:00 TYC3338 (Rec: 09/01/18 06:45 ADR6162 ICU-C25) Document 09/01/18 07:00 ASA5789 (Rec: 09/01/18 07:09 FQL0646 ICU-M23) Document 09/01/18 08:00 NWB9581 (Rec: 09/01/18 09:02 FAE8522 ICU-M23) Document 09/01/18 09:00 YCM7340 (Rec: 09/01/18 09:02 ZTB5485 ICU-M23) Document 09/01/18 10:06 SQH7590 (Rec: 09/01/18 10:06 BUR5548 ICU-M23) Document 09/01/18 11:00 GFG1479 (Rec: 09/01/18 11:06 KYT5354 ICU-M23) Document 09/01/18 12:00 OOM8354 (Rec: 09/01/18 12:26 MUQ6066 ICU-M23) Document 09/01/18 13:00 QGO6073 (Rec: 09/01/18 14:29 KLX8957 ICU-M23) Document 09/01/18 14:00 XFQ9774 (Rec: 09/01/18 14:29 DPA9043 ICU-M23) Document 09/01/18 14:48 DVM0379 (Rec: 09/01/18 14:50 ORI0103 ICU-M23) Document 09/01/18 15:00 PRD3464 (Rec: 09/01/18 16:04 DOP7849 ICU-M23) Document 09/01/18 16:00 CGB6442 (Rec: 09/01/18 16:04 FJW8177 ICU-M23) Document 09/01/18 17:05 BNF2715 (Rec: 09/01/18 17:05 PVY5795 ICU-M23) Document 09/01/18 18:00 ZRG2442 (Rec: 09/01/18 18:04 LIN9639 ICU-M23) Document 09/01/18 20:00 IMB4027 (Rec: 09/01/18 20:25 YER1647 ICU-M23) Document 09/01/18 21:00 NGY9658 (Rec: 09/01/18 21:04 WFZ4064 ICU-M23) Document 09/01/18 22:00 AKJ7552 (Rec: 09/01/18 22:13 XOM1048 ICU-M23) Document 09/01/18 23:00 MQP4066 (Rec: 09/01/18 23:20 AHA9108 ICU-M23) Document 09/02/18 00:00 CQE9716 (Rec: 09/02/18 00:08 TBO0208 ICU-M23) Document 09/02/18 01:00 SXA0196 (Rec: 09/02/18 01:04 ELZ0479 ICU-M23) Document 09/02/18 02:00 MYI3333 (Rec: 09/02/18 02:20 RGQ7049 ICU-M23) Document 09/02/18 03:00 PSR0790 (Rec: 09/02/18 03:03 RTJ7781 ICU-M23) Document 09/02/18 04:00 WBP6648 (Rec: 09/02/18 04:14 FNM0435 ICU-M23) Document 09/02/18 05:00 UMH7989 (Rec: 09/02/18 05:01 WOW3489 ICU-M23) Document 09/02/18 05:25 HWC0619 (Rec: 09/02/18 05:26 YAZ9623 ICU-M23) Document 09/02/18 05:28 SJT9836 (Rec: 09/02/18 05:29 TFP7105 ICU-M23) Document 09/02/18 06:00 PMD2809 (Rec: 09/02/18 06:09 LSO0041 ICU-M23) Document 09/02/18 07:00 VPG1855 (Rec: 09/02/18 07:23 LNY9818 ICU-M23) Document 09/02/18 08:00 MPR5829 (Rec: 09/02/18 08:33 MJD6630 ICU-M23) Document 09/02/18 09:00 ZGM9050 (Rec: 09/02/18 09:27 VKV7484 ICU-C06) Document 09/02/18 10:00 BMN8465 (Rec: 09/02/18 12:05 SNJ2977 ICU-M23) Document 09/02/18 11:00 VPH3723 (Rec: 09/02/18 12:05 TWW7732 ICU-M23) Document 09/02/18 12:00 WMW7166 (Rec: 09/02/18 12:05 EIG2475 ICU-M23) Document 09/02/18 13:00 TKN8762 (Rec: 09/02/18 13:16 BEH1130 ICU-M23) Document 09/02/18 14:00 PJO7690 (Rec: 09/02/18 14:04 XVM8805 ICU-M23) Document 09/02/18 15:00 JJR6120 (Rec: 09/02/18 15:30 QRW4742 ICU-C25) Document 09/02/18 16:00 KSP2020 (Rec: 09/02/18 16:29 FGB8806 ICU-M23) Document 09/02/18 17:00 QGZ3322 (Rec: 09/02/18 17:14 MPA4121 ICU-M23) Document 09/02/18 18:00 EON2610 (Rec: 09/02/18 18:07 MHC6366 ICU-M23) Document 09/02/18 20:00 BJF6226 (Rec: 09/02/18 20:00 ZFM8916 ICU-M23) Document 09/02/18 21:00 VFX0893 (Rec: 09/02/18 21:05 LCF8334 ICU-M23) Document 09/02/18 22:00 CLH7879 (Rec: 09/02/18 22:07 XQY2249 ICU-M23) Document 09/02/18 23:00 KKJ5991 (Rec: 09/02/18 23:39 HQD6650 ICU-M23) Document 09/03/18 00:00 MMS5196 (Rec: 09/03/18 01:04 BAB9265 ICU-M23) Document 09/03/18 01:00 QHQ1434 (Rec: 09/03/18 01:06 GGZ4722 ICU-M23) Document 09/03/18 02:00 ZDL3469 (Rec: 09/03/18 03:22 PGM0935 ICU-M23) Document 09/03/18 03:00 RFK2816 (Rec: 09/03/18 03:22 FXK1354 ICU-M23) Document 09/03/18 04:00 GUF1347 (Rec: 09/03/18 04:26 OOC9418 ICU-M23) Document 09/03/18 05:00 JVP1922 (Rec: 09/03/18 05:00 OUN3751 ICU-M23) Document 09/03/18 06:00 RDC6024 (Rec: 09/03/18 06:59 HKD4633 ICU-M23) Document 09/03/18 07:00 UXG6353 (Rec: 09/03/18 07:26 RVB1643 ICU-C06) Document 09/03/18 07:46 QRG8090 (Rec: 09/03/18 07:46 ZDA9288 ICU-C06) Document 09/03/18 08:00 ZYC0566 (Rec: 09/03/18 08:10 MIR6173 ICU-C06) Document 09/03/18 10:00 ERF1495 (Rec: 09/03/18 11:00 KWQ8336 ICU-M23) Document 09/03/18 11:00 UFX7648 (Rec: 09/03/18 11:50 RFW7212 ICU-C06) Document 09/03/18 13:00 ING2126 (Rec: 09/03/18 14:04 XFJ1569 ICU-C06) Document 09/03/18 14:00 WIR2162 (Rec: 09/03/18 15:51 AIB9833 ICU-C06) Document 09/03/18 15:00 NHN4926 (Rec: 09/03/18 15:53 MHQ6417 ICU-C06) Document 09/03/18 20:28 FHI6318 (Rec: 09/03/18 20:28 ARE3139 ICU-M23) Document 09/03/18 23:58 JRI8481 (Rec: 09/03/18 23:58 MHA6976 ICU-M23) Document 09/04/18 02:00 QWL4721 (Rec: 09/04/18 02:09 TPL4230 ICU-M23) Document 09/04/18 03:00 ANM9520 (Rec: 09/04/18 03:13 YDE8949 ICU-C06) Document 09/04/18 04:00 BIE7816 (Rec: 09/04/18 04:00 GTY5590 ICU-M23) Document 09/04/18 05:00 OSC1755 (Rec: 09/04/18 05:13 SRX6386 ICU-M23) Document 09/04/18 06:00 FNF0196 (Rec: 09/04/18 06:04 GOH5397 ICU-M23) Document 09/04/18 06:11 EZX2330 (Rec: 09/04/18 06:11 SON6228 ICU-M23) Document 09/04/18 08:00 TZZ8321 (Rec: 09/04/18 09:23 AUP0470 ICU-C12) Document 09/04/18 09:00 POH1092 (Rec: 09/04/18 09:23 GCV0550 ICU-C12) Document 09/04/18 10:00 IDU5126 (Rec: 09/04/18 10:16 ZQW5663 ICU-M23) Document 09/04/18 11:00 NIO6803 (Rec: 09/04/18 11:45 LOV7674 ICU-M23) Document 09/04/18 12:00 ZCJ5554 (Rec: 09/04/18 12:47 QXB7912 ICU-M23) Document 09/04/18 13:00 LIL1929 (Rec: 09/04/18 13:01 QOG3254 ICU-C12) Document 09/04/18 14:29 WNC9696 (Rec: 09/04/18 14:29 ZJF3108 ICU-C12) Document 09/04/18 15:00 IOZ5613 (Rec: 09/04/18 16:31 MUM7111 ICU-C12) Document 09/04/18 16:00 AFA3876 (Rec: 09/04/18 17:00 PWM3972 ICU-C12) Co-Sign 09/04/18 16:00 AOD3492 Document 09/04/18 17:00 LHT5596 (Rec: 09/04/18 17:23 NAR5471 ICU-C12) Document 09/04/18 18:00 CHI6136 (Rec: 09/04/18 18:32 RWI7889 ICU-C12) Document 09/04/18 19:37 TQZ1294 (Rec: 09/04/18 19:37 VYV4319 ICU-M23) Document 09/04/18 21:00 ETV3813 (Rec: 09/04/18 21:11 WLX5686 ICU-M23) Document 09/04/18 22:00 ZJH5290 (Rec: 09/04/18 22:44 LTN0259 ICU-M23) Document 09/04/18 23:00 ZWV0025 (Rec: 09/04/18 23:12 IYV5559 ICU-C06) Document 09/05/18 00:00 NQX9329 (Rec: 09/05/18 01:12 SGC9481 ICU-M23) Document 09/05/18 01:00 EJS9796 (Rec: 09/05/18 01:12 DPG2195 ICU-M23) Document 09/05/18 01:49 CFP4801 (Rec: 09/05/18 01:49 DZS4014 ICU-M23) Document 09/05/18 02:00 DYV3987 (Rec: 09/05/18 02:05 NUS5687 ICU-M23) Document 09/05/18 03:00 XXS8921 (Rec: 09/05/18 03:10 IAL3062 ICU-M23) Document 09/05/18 04:00 DPJ9138 (Rec: 09/05/18 04:22 BGR1628 ICU-C06) Document 09/05/18 05:00 YGP2094 (Rec: 09/05/18 05:18 IGN4856 ICU-M23) Document 09/05/18 06:00 QBP2114 (Rec: 09/05/18 06:08 KZL3691 ICU-C06) Document 09/05/18 06:55 IJS4052 (Rec: 09/05/18 06:55 FEE8150 ICU-C06) Document 09/05/18 07:00 XCE6446 (Rec: 09/05/18 07:22 RVA8664 ICU-C12) Document 09/05/18 08:00 DAC9435 (Rec: 09/05/18 09:09 VCS8187 ICU-C12) Document 09/05/18 09:00 GDO3772 (Rec: 09/05/18 09:16 NWF5435 ICU-C12) Document 09/05/18 10:00 YIU3666 (Rec: 09/05/18 10:04 GQH6669 ICU-M23) Document 09/05/18 11:00 VEX7555 (Rec: 09/05/18 11:45 JBU3154 ICU-C12) Document 09/05/18 12:00 WMX4789 (Rec: 09/05/18 12:48 GQF0905 ICU-C12) Document 09/05/18 13:00 XFG7987 (Rec: 09/05/18 13:16 GLD9772 ICU-C12) Document 09/05/18 14:00 WOS5269 (Rec: 09/05/18 14:14 ABJ9418 ICU-C12) Document 09/05/18 15:00 QDQ5037 (Rec: 09/05/18 15:43 XNM9851 ICU-C12) Document 09/05/18 16:00 CLC6901 (Rec: 09/05/18 16:37 FZD1199 ICU-C12) Document 09/05/18 17:00 LOQ4881 (Rec: 09/05/18 17:58 FOU1922 ICU-C12) Document 09/05/18 18:00 FTE4710 (Rec: 09/05/18 18:21 XSJ5522 ICU-M23) Document 09/05/18 19:48 ZSS7409 (Rec: 09/05/18 19:48 SYM5202 ICU-M23) Document 09/05/18 19:54 ZPJ3352 (Rec: 09/05/18 20:06 HWL0821 ICU-C25) Document 09/05/18 21:00 JUM2914 (Rec: 09/05/18 21:20 QBD5529 ICU-M23) Document 09/05/18 21:52 GJJ2559 (Rec: 09/05/18 21:52 WXI4300 ICU-M23) Document 09/05/18 23:00 QIE5097 (Rec: 09/05/18 23:08 WXX5321 ICU-C12) Document 09/05/18 23:48 HBD1488 (Rec: 09/05/18 23:48 UDL0382 ICU-M23) Document 09/06/18 01:00 LWJ8593 (Rec: 09/06/18 01:04 MCY6244 ICU-C12) Document 09/06/18 02:00 HAN4864 (Rec: 09/06/18 02:09 FFR0777 ICU-C12) Document 09/06/18 04:00 EWK3144 (Rec: 09/06/18 04:17 EHO8263 ICU-M23) Document 09/06/18 05:00 BGK3776 (Rec: 09/06/18 05:06 NYX9002 ICU-M23) Document 09/06/18 05:07 YCG1896 (Rec: 09/06/18 05:07 CKX4932 ICU-M23) Document 09/06/18 06:35 FHZ4250 (Rec: 09/06/18 06:35 SCS6532 ICU-M23) Document 09/06/18 07:00 ZAB0208 (Rec: 09/06/18 09:01 ETO4063 ICU-M23) Document 09/06/18 08:00 KGX6288 (Rec: 09/06/18 09:01 NQD2461 ICU-M23) Document 09/06/18 09:00 RWL6934 (Rec: 09/06/18 09:01 XML7554 ICU-M23) Document 09/06/18 10:00 ZJB4812 (Rec: 09/06/18 10:16 ZOQ8486 ICU-C12) Document 09/06/18 11:00 AMG2212 (Rec: 09/06/18 11:48 KFD0725 ICU-C12) Document 09/06/18 12:00 RUF4520 (Rec: 09/06/18 12:20 CKW1699 ICU-C12) Document 09/06/18 13:00 OGD0978 (Rec: 09/06/18 13:50 MDG8569 ICU-C11) Document 09/06/18 13:00 TEU2552 (Rec: 09/06/18 13:57 LKF7306 ICU-L03) Document 09/06/18 15:00 NNR3060 (Rec: 09/06/18 15:13 CVI8371 ICU-M23) Document 09/06/18 16:00 SCT2264 (Rec: 09/06/18 16:40 YHU0227 ICU-C12) Document 09/06/18 17:14 DIA7487 (Rec: 09/06/18 17:14 CUH0748 ICU-C12) Document 09/06/18 18:00 VRW7221 (Rec: 09/06/18 18:01 JYQ5210 ICU-M23) Document 09/06/18 18:27 DXY0307 (Rec: 09/06/18 18:27 LEX6000 ICU-M23) Document 09/06/18 18:27 VAO0409 (Rec: 09/06/18 18:28 KSL8794 ICU-M23) Document 09/06/18 18:29 TMF3773 (Rec: 09/06/18 18:30 QBP5095 ICU-M23) Document 09/06/18 19:00 ZFU4242 (Rec: 09/06/18 19:21 KGP4730 ICU-M23) Document 09/06/18 22:00 ZVO5590 (Rec: 09/06/18 22:33 NUC7492 ICU-M23) Document 09/06/18 23:00 QLE7628 (Rec: 09/06/18 23:46 KLS5051 ICU-M23) Document 09/06/18 23:55 IAX9803 (Rec: 09/06/18 23:56 GRI4821 ICU-M23) Document 09/07/18 00:58 CRJ5562 (Rec: 09/07/18 00:58 GFQ4559 ICU-M23) Document 09/07/18 02:00 UZU6763 (Rec: 09/07/18 02:58 AAN4404 ICU-M23) Document 09/07/18 02:59 GXO1904 (Rec: 09/07/18 02:59 OCI5441 ICU-M23) Document 09/07/18 04:00 HRY2230 (Rec: 09/07/18 05:04 LRQ0330 ICU-C12) Document 09/07/18 05:00 AMT1548 (Rec: 09/07/18 05:05 OHR6821 ICU-C12) Document 09/07/18 06:00 UMI3245 (Rec: 09/07/18 06:22 RHB2808 ICU-M23) Document 09/07/18 06:59 OZL9541 (Rec: 09/07/18 06:59 TVN7201 ICU-M23) Document 09/07/18 07:00 WRI4557 (Rec: 09/07/18 07:01 XRO1204 ICU-M23) Document 09/07/18 08:00 JXA6220 (Rec: 09/07/18 08:14 BUI6401 ICU-M23) Document 09/07/18 09:00 JTQ4050 (Rec: 09/07/18 09:38 MFR1492 ICU-M23) Document 09/07/18 10:00 IOO9865 (Rec: 09/07/18 11:01 BKK8985 ICU-M23) Document 09/07/18 11:00 JIG1737 (Rec: 09/07/18 11:01 JBU2780 ICU-M23) Document 09/07/18 13:00 IKS0960 (Rec: 09/07/18 13:15 ETK7563 ICU-M23) Document 09/07/18 14:00 NRY7401 (Rec: 09/07/18 16:39 OHR9224 ICU-M23) Document 09/07/18 15:00 OUJ0281 (Rec: 09/07/18 16:39 VYK3664 ICU-M23) Document 09/07/18 16:00 UTJ6973 (Rec: 09/07/18 16:39 PGG2708 ICU-M23) Document 09/07/18 16:52 PDI2040 (Rec: 09/07/18 16:52 TJD2581 ICU-M23) Document 09/07/18 17:00 IVW1329 (Rec: 09/07/18 18:18 OUF7428 ICU-M23) Document 09/07/18 18:00 YAZ7070 (Rec: 09/07/18 18:18 EGH3188 ICU-M23) Document 09/07/18 18:19 QTW7948 (Rec: 09/07/18 18:19 XMC3322 ICU-M23) Document 09/07/18 18:23 EFS5671 (Rec: 09/07/18 18:23 IMC2778 ICU-M23) Document 09/07/18 19:00 MHA4144 (Rec: 09/07/18 19:49 SEJ8745 ICU-M23) Document 09/07/18 19:50 CUE1498 (Rec: 09/07/18 20:03 HZL2182 ICU-M23) Document 09/07/18 21:00 IAQ0815 (Rec: 09/07/18 21:18 CHL3287 ICU-M23) Document 09/07/18 21:54 BUZ1075 (Rec: 09/07/18 21:54 TKQ7987 ICU-M23) Document 09/07/18 23:00 NTN3194 (Rec: 09/07/18 23:26 NEW1988 ICU-M23) Document 09/08/18 00:00 YKH1429 (Rec: 09/08/18 01:06 IAL0364 ICU-C12) Document 09/08/18 01:00 SXB2940 (Rec: 09/08/18 01:07 IZR5799 ICU-C12) Document 09/08/18 02:00 PEN9174 (Rec: 09/08/18 02:27 ZTQ0219 ICU-M23) Document 09/08/18 03:00 NIJ2570 (Rec: 09/08/18 03:06 WIS6533 ICU-C12) Document 09/08/18 04:00 WPB7606 (Rec: 09/08/18 04:58 UJC3148 ICU-M23) Document 09/08/18 04:59 QTN2215 (Rec: 09/08/18 04:59 OSH3535 ICU-M23) Document 09/08/18 05:08 LNC0531 (Rec: 09/08/18 05:08 DTZ7975 ICU-M23) Document 09/08/18 05:47 GGI0138 (Rec: 09/08/18 05:50 ZBD8009 ICU-M23) Document 09/08/18 07:00 SDG4451 (Rec: 09/08/18 09:42 VJP4817 ICU-C06) Document 09/08/18 08:00 MLI8381 (Rec: 09/08/18 10:46 VJM2336 ICU-C06) Document 09/08/18 09:00 MDX9960 (Rec: 09/08/18 10:54 KFG3313 ICU-C06) Document 09/08/18 10:00 LFP0833 (Rec: 09/08/18 10:54 UBO2522 ICU-C06) Document 09/08/18 10:54 XEH9512 (Rec: 09/08/18 10:54 ZMS6658 ICU-C06) Document 09/08/18 12:00 VFP1176 (Rec: 09/08/18 13:24 OBT6643 ICU-C06) Document 09/08/18 13:00 UYW0559 (Rec: 09/08/18 13:24 PRZ6818 ICU-C06) Document 09/08/18 17:00 ZND8924 (Rec: 09/08/18 17:57 PAL5710 ICU-C12) Document 09/08/18 18:00 BEH9997 (Rec: 09/08/18 18:09 FTW7362 ICU-C12) Document 09/08/18 19:00 CYM3837 (Rec: 09/08/18 19:10 CKT8273 ICU-M23) Document 09/08/18 20:00 QPW9690 (Rec: 09/08/18 20:20 FCG7739 ICU-M23) Document 09/08/18 20:40 NVT1015 (Rec: 09/08/18 20:41 CKB4101 ICU-C25) Document 09/08/18 20:52 QVB4065 (Rec: 09/08/18 20:52 ESU9913 ICU-C25) Document 09/08/18 21:41 ZPE0838 (Rec: 09/08/18 21:43 RSD3431 ICU-M23) Document 09/08/18 23:00 NNB5497 (Rec: 09/08/18 23:37 BMS3243 ICU-C25) Document 09/09/18 00:00 KEI7168 (Rec: 09/09/18 00:14 GQS6893 ICU-M23) Document 09/09/18 01:00 RBV9864 (Rec: 09/09/18 01:14 RWY0773 ICU-C25) Document 09/09/18 01:58 TII2842 (Rec: 09/09/18 01:59 MFD5656 ICU-C25) Document 09/09/18 03:00 OOB7917 (Rec: 09/09/18 03:18 FKI9380 ICU-C25) Document 09/09/18 04:00 UAC8496 (Rec: 09/09/18 04:25 SAV5768 ICU-C25) Document 09/09/18 05:00 DQT8248 (Rec: 09/09/18 05:49 QJC7803 ICU-C25) Document 09/09/18 06:00 TIX9450 (Rec: 09/09/18 06:03 ZSU2050 ICU-M23) Document 09/09/18 07:00 ZOS9157 (Rec: 09/09/18 08:57 HQZ1951 ICU-C15) Document 09/09/18 08:00 CAL2801 (Rec: 09/09/18 09:06 QWV5932 ICU-C15) Document 09/09/18 08:00 MMS8773 (Rec: 09/09/18 18:34 JIR6716 ICU-M23) Document 09/09/18 09:00 LQR1936 (Rec: 09/09/18 09:06 OZR4509 ICU-C15) Document 09/09/18 10:00 FJJ6362 (Rec: 09/09/18 13:20 EAI6547 ICU-C15) Document 09/09/18 11:00 JUG7666 (Rec: 09/09/18 13:20 ZGL9980 ICU-C15) Document 09/09/18 12:00 RPK0402 (Rec: 09/09/18 13:20 CQO2123 ICU-C15) Document 09/09/18 13:00 GAR1552 (Rec: 09/09/18 13:20 MVV3284 ICU-C15) Document 09/09/18 14:49 YLH4696 (Rec: 09/09/18 14:49 WPB8858 ICU-M23) Document 09/09/18 15:00 WUR2465 (Rec: 09/09/18 16:13 UJL6405 ICU-M23) Document 09/09/18 16:00 RXR7827 (Rec: 09/09/18 16:13 RSI0269 ICU-M23) Document 09/09/18 17:00 VFB1235 (Rec: 09/09/18 18:32 MBD9069 ICU-M23) Document 09/09/18 18:00 UOO1888 (Rec: 09/09/18 18:32 KHI4847 ICU-M23) Document 09/09/18 19:00 GZA6195 (Rec: 09/09/18 19:51 ZRG8880 ICU-C14) Document 09/09/18 19:51 UXG3302 (Rec: 09/09/18 19:53 UTS1251 ICU-C14) Document 09/09/18 21:00 NTC6568 (Rec: 09/09/18 21:31 FHX6673 ICU-M23) Document 09/09/18 21:55 NQR4142 (Rec: 09/09/18 21:57 ZAL8441 ICU-C14) Document 09/09/18 23:00 TQJ2319 (Rec: 09/09/18 23:49 NBM2283 ICU-C14) Document 09/09/18 23:50 ZNA5240 (Rec: 09/09/18 23:53 TDD4687 ICU-C14) Document 09/10/18 00:55 FSD2045 (Rec: 09/10/18 00:57 LCZ2584 ICU-C14) Document 09/10/18 02:00 DGV0727 (Rec: 09/10/18 02:03 XQL1231 ICU-C14) Document 09/10/18 02:49 AWV1994 (Rec: 09/10/18 02:50 UKQ6190 ICU-C14) Document 09/10/18 03:59 RVU1225 (Rec: 09/10/18 04:00 HRL8260 ICU-M23) Document 09/10/18 05:00 WJU6758 (Rec: 09/10/18 05:24 DUC1673 ICU-M23) Document 09/10/18 05:58 DDC3003 (Rec: 09/10/18 05:59 RKS4940 ICU-C14) Document 09/10/18 07:00 NDP7101 (Rec: 09/10/18 07:42 SHE5292 ICU-C12) Document 09/10/18 08:00 PBP0420 (Rec: 09/10/18 08:55 EQS1027 ICU-C12) Document 09/10/18 09:00 BTI5756 (Rec: 09/10/18 09:49 OLN5083 ICU-C12) Document 09/10/18 09:59 VLY8028 (Rec: 09/10/18 10:00 JXY6442 ICU-C12) Document 09/10/18 11:00 WGC1059 (Rec: 09/10/18 11:12 JUC2918 ICU-C12) Document 09/10/18 12:00 WLN8994 (Rec: 09/10/18 12:57 VRS8752 ICU-C12) Document 09/10/18 13:00 CNW9708 (Rec: 09/10/18 13:37 KII6689 ICU-C12) Document 09/10/18 14:00 HLJ2349 (Rec: 09/10/18 16:30 LDF6238 ICU-C12) Document 09/10/18 15:00 ZVH5679 (Rec: 09/10/18 16:35 FXL5750 ICU-C12) Document 09/10/18 16:00 KCU9105 (Rec: 09/10/18 16:51 JNW5050 ICU-C12) Document 09/10/18 17:00 SVG8410 (Rec: 09/10/18 17:06 QJB5299 ICU-C12) Document 09/10/18 18:00 ZKG1460 (Rec: 09/10/18 18:19 APH5793 ICU-M23) Document 09/10/18 18:30 ZHO9962 (Rec: 09/10/18 19:05 CRV0561 ICU-C12) Document 09/10/18 19:00 DCS8570 (Rec: 09/10/18 21:56 SBI9727 ICU-C06) Document 09/10/18 20:00 YNW3075 (Rec: 09/10/18 21:56 UZY9064 ICU-C06) Document 09/10/18 21:00 COS4486 (Rec: 09/10/18 21:56 IAQ1063 ICU-C06) Document 09/10/18 23:00 RID6474 (Rec: 09/10/18 23:06 ASZ2032 ICU-M23) Document 09/11/18 00:00 BTU5144 (Rec: 09/11/18 00:15 MMM4304 ICU-C06) Document 09/11/18 01:00 VIG3654 (Rec: 09/11/18 01:00 KVZ2695 ICU-M23) Document 09/11/18 02:00 BDG8548 (Rec: 09/11/18 02:35 JVN5136 ICU-C06) Document 09/11/18 02:56 CVR0577 (Rec: 09/11/18 02:57 OQP5731 ICU-M23) Document 09/11/18 04:00 MED9169 (Rec: 09/11/18 04:13 DVV0564 ICU-C06) Document 09/11/18 05:00 ZNH6723 (Rec: 09/11/18 05:07 ALR1236 ICU-M23) Document 09/11/18 06:00 IJU9234 (Rec: 09/11/18 06:13 XBW9294 ICU-C06) Document 09/11/18 06:22 ROV0924 (Rec: 09/11/18 06:22 QUE7130 ICU-M23) Document 09/11/18 08:00 UKA4006 (Rec: 09/11/18 09:10 ZPH3772 ICU-C12) Document 09/11/18 09:00 WZZ4240 (Rec: 09/11/18 10:51 CPI9805 ICU-C12) Document 09/11/18 10:00 MDH2423 (Rec: 09/11/18 10:52 JGW3264 ICU-C12) Document 09/11/18 10:52 CQI3310 (Rec: 09/11/18 10:52 YLM7053 ICU-C12) Document 09/11/18 11:45 IKF9544 (Rec: 09/11/18 11:45 GPN5950 ICU-C12) Document 09/11/18 13:00 FNF4709 (Rec: 09/11/18 14:13 CFY2319 ICU-C12) Document 09/11/18 14:00 NQX8425 (Rec: 09/11/18 14:18 ICT6397 ICU-C12) Document 09/11/18 15:47 VIY8449 (Rec: 09/11/18 15:59 VNR8181 ICU-C12) Document 09/11/18 17:00 HKQ1327 (Rec: 09/11/18 17:22 ALA2833 ICU-C12) Document 09/11/18 17:39 DJQ4029 (Rec: 09/11/18 17:39 HKQ4777 ICU-C12) Document 09/11/18 18:00 FVG9054 (Rec: 09/11/18 18:06 UVR8839 ICU-C12) Document 09/11/18 19:00 NRA4427 (Rec: 09/11/18 19:20 FAO7387 ICU-C06) Document 09/11/18 20:00 BLS7942 (Rec: 09/11/18 20:22 EFM3145 ICU-C06) Document 09/11/18 21:00 CAM7401 (Rec: 09/11/18 21:10 YPQ4621 ICU-C06) Document 09/11/18 22:00 MZO1979 (Rec: 09/11/18 22:36 YVL9975 ICU-M23) Document 09/11/18 22:57 LSX4647 (Rec: 09/11/18 22:57 TKH9816 ICU-C06) Document 09/12/18 00:00 USN6836 (Rec: 09/12/18 00:04 DUG0621 ICU-C06) Document 09/12/18 00:59 CUV3233 (Rec: 09/12/18 01:01 FGF9172 ICU-C06) Document 09/12/18 02:00 GQT5193 (Rec: 09/12/18 02:05 SIG4427 ICU-C06) Document 09/12/18 02:58 DIX3177 (Rec: 09/12/18 02:58 TKW7567 ICU-C06) Document 09/12/18 04:00 QGX2473 (Rec: 09/12/18 04:09 GSD4250 ICU-C06) Document 09/12/18 05:00 FYH8477 (Rec: 09/12/18 05:20 HJW8148 ICU-M23) Document 09/12/18 05:58 DEL8101 (Rec: 09/12/18 05:59 GZQ5334 ICU-C06) Document 09/12/18 07:00 HFB9574 (Rec: 09/12/18 07:22 EPG6411 ICU-C12) Document 09/12/18 08:00 TIT9208 (Rec: 09/12/18 08:27 DSE8516 ICU-C12) Document 09/12/18 09:00 UYV3161 (Rec: 09/12/18 09:23 IKV1778 ICU-M23) Document 09/12/18 10:00 YHR4825 (Rec: 09/12/18 10:05 GAD8967 ICU-M23) Document 09/12/18 11:00 KOJ1159 (Rec: 09/12/18 11:21 ONU9668 ICU-C12) Document 09/12/18 12:00 AMO6208 (Rec: 09/12/18 12:41 JZA8988 ICU-C12) Document 09/12/18 13:00 FTP4740 (Rec: 09/12/18 13:06 IDW9300 ICU-C12) Document 09/12/18 14:00 NSO3897 (Rec: 09/12/18 14:00 YZB5648 ICU-C12) Document 09/12/18 14:26 YEE2373 (Rec: 09/12/18 14:26 XSM2288 ICU-C12) Document 09/12/18 15:00 VYW9483 (Rec: 09/12/18 15:13 XVY2903 ICU-C12) Document 09/12/18 16:00 LDZ0276 (Rec: 09/12/18 17:20 OLF9382 ICU-C12) Document 09/12/18 17:00 XME3706 (Rec: 09/12/18 17:20 MCG0232 ICU-C12) Document 09/12/18 18:00 EDP5972 (Rec: 09/12/18 18:16 SLP1095 ICU-M23) Document 09/12/18 19:00 EDR1776 (Rec: 09/12/18 19:03 CJJ6399 ICU-C16) Document 09/12/18 19:49 QBI7896 (Rec: 09/12/18 19:50 ZGJ1797 ICU-M23) Document 09/12/18 21:00 DVZ5893 (Rec: 09/12/18 21:41 CPM1967 ICU-C16) Document 09/12/18 21:53 AIG4227 (Rec: 09/12/18 21:53 NQF2607 ICU-C16) Document 09/12/18 23:00 [id number] (Rec: 09/12/18 23:18 [id number] ICU-C16) Document 09/13/18 00:00 [id number] (Rec: 09/13/18 00:07 [id number] ICU-C16) Document 09/13/18 00:58 [id number] (Rec: 09/13/18 00:59 [id number] ICU-C16) Document 09/13/18 01:51 [id number] (Rec: 09/13/18 01:53 [id number] ICU-C16) Document 09/13/18 02:58 [id number] (Rec: 09/13/18 02:59 [id number] ICU-C16) Document 09/13/18 03:58 [id number] (Rec: 09/13/18 03:59 [id number] ICU-M23) Document 09/13/18 04:56 [id number] (Rec: 09/13/18 04:57 [id number] ICU-C16) Document 09/13/18 05:46 [id number] (Rec: 09/13/18 05:47 [id number] ICU-M23) Document 09/13/18 06:45 [id number] (Rec: 09/13/18 06:45 [id number] ICU-M23) Document 09/13/18 07:42 [id number] (Rec: 09/13/18 07:42 [id number] ICU-C12) Document 09/13/18 09:00 [id number] (Rec: 09/13/18 09:08 [id number] ICU-C12) Document 09/13/18 10:00 [id number] (Rec: 09/13/18 10:08 [id number] ICU-C12) Labs: Laboratory Results - last 24 hr 09/13/18 09/13/18 09/13/18 04:00 04:00 04:00 WBC 20.5 H RBC 3.07 L Hgb 8.3 L Hct 26 L MCV 85 MCH 27 MCHC 32 RDW 16 H Plt Count 292 MPV 8.5 Neut % (Auto) 90.0 Lymph % (Auto) 2.7 [place] % (Auto) 6.8 Eos % (Auto) 0.2 Baso % (Auto) 0.3 Absolute Neuts (auto) 18.4 H Absolute Lymphs (auto) 0.6 L Absolute Monos (auto) 1.4 H Absolute Eos (auto) 0.0 Absolute Basos (auto) 0.1 Absolute Nucleated RBC 0.0 Nucleated RBC % 0.0 Sodium 139 Potassium 3.9 Chloride 108 Carbon Dioxide 27 Anion Gap 4 BUN 16 Creatinine 0.47 L Est GFR ( Amer) 157.2 Est GFR (Non-Af Amer) 129.9 BUN/Creatinine Ratio 34.0 H Glucose 168 H Calcium 7.8 L Ionized Calcium 1.09 L Total Bilirubin 0.40 AST 20 ALT 17 Alkaline Phosphatase 74 Total Protein 5.1 L Albumin 2.6 L Globulin 2.5 Albumin/Globulin Ratio 1.0 Studies: Patient Name: LONDON MEDINA Medical Record#: [id number] Ordering Physician: Blair Dickson MD Acct.#: [id number] : 1945 Age: 73 Sex: F Location: [facility] Exam Date: 09/12/181832 ADM Status: ADM IN Order Information: CHEST AP OR PORT Accession Number: [id number] CPT: 66390 HISTORY: new NG placement COMPARISONS: September 12, 2018 at 3:20 PM VIEWS: 1: frontal AP view of the chest at 7:49 PM FINDINGS: LINES AND TUBES: The tracheostomy tube is noted with tip overlying the trachea. A right-sided PICC line is noted with tip overlying the superior vena cava. A feeding tube is noted with the tip in the region of the pylorus. CARDIOMEDIASTINAL SILHOUETTE: The cardiomediastinal silhouette is normal for portable technique. PLEURA: The costophrenic angles are sharp. No pleural abnormalities are noted. LUNG PARENCHYMA: There is linear opacification of the lung bases bilaterally with improved aeration compared to the previous examination. ABDOMEN: The upper abdomen is clear. There is no subphrenic gas. BONES AND SOFT TISSUES: No bone or soft tissue abnormalities are noted. IMPRESSION: LINES AND TUBES ABOVE. PATCHY BIBASILAR ATELECTASIS VERSUS CONSOLIDATION. R1NF Preliminary Imaging Read R1NF <Electronically signed by Sheldon Alcazar MD in OV> 09/13/18754 Dictated By: Sheldon Alcazar MD Dictated Date/Time: 09/13/18754 Transcribed Date/Time: 09/13/18753 Copy to: CC:Latonia Pickering MD; Blair Dickson MD; Lora Ramos MD; Sebastián Jacobo MD; Aditya Crawford MD; Emil Martini MD; Sophie Tucker MD Imaging - [facility] Imaging - [facility] Imaging - [facility] This report is only to be considered final once signed by the Provider(s) as displayed in the "<Electronically Signed by >" field (s). Absence of a signature indicates the report is in a draft status and still needs to be finalized. In the event this document was created by someone other than the signing Provider, the individual initiating the document will be listed in the "Entered by:" or "Dictated by:" adams. 1 of 2 Nutrition: TF resumed- Jevity at 70cc/h Impression: 73 F with prolonged intubation/mechanical ventilation admitted for perforated sigmoid colon in the setting of diverticultis Plan: # Ex-lap x 3 for perforated sigmoid colon diverticulitis # Sepsis/septic shock-resolved # Acute respiratory failure, now prolonged intubation and mechanical ventilation # Progressive leukocytosis- non toxic appearance, improving values # Anemia- H/H stable, no S/Sx of acute/active blood loss # 04/21 Staog negative BCX, likely contaminant # Respiratory alkalosis due to tachypnea # anasarca, pleural effusion # Critical illness polyneuromyopathy - Surgical management as per Dr. Sanchez - Continue with zosyn (end date 09/13) and antifungal(end date 09/17) x 14 days. - Blood cultures x 2 09/10- 04/21(central line) Staph epidermidis. Suspected contaminant. Central line removed 09/12 - Currently tolerating PS8/PEEP 8. Plan for TM today. If tolerates will still rest on the vent for the night - EMG planned for this afternoon - s/p Planned trach by ENT 09/12 - PT/OT PPX DVT- SQH GI- H2B Prognosis: guarded/critical Code: Full Dispo: Monitor in MICU; Consider planning for LTAC when acute issues addressed Critical Care Time: 35 minutes
--- NOTE | 2018-09-13 12:22 | PN ---
Progress Note - Progress Note Date of Service: 09/13/18 SOAP: Subjective: Tracheostomy yesterday Tolerating tube feeds Comfortable Objective: Temp Pulse Resp BP Pulse Ox 99.7 F 98 30 147/79 96 09/13/18 12:01 09/13/18 12:01 09/13/18 11:00 09/13/18 12:01 09/13/18 12:01 Intake & Output 09/11/18 09/12/18 09/13/18 09/14/18 06:59 06:59 06:59 06:59 Intake Total 4301 2167 1427 0 Output Total 3090 6145 1540 385 Balance 1211 -3978 -113 -385 Weight 171 lb 13.225 oz 158 lb 9.6 oz 168 lb 11.2 oz Intake: IV Fluids 2178 1014 810 ABX - ZOSYN 100 100 109 Albumin 200 Anidulafungin 0 NS 1819 171 701 kcl 293 potassium Phosphate 259 250 IVPB 340 ABX - ZOSYN 110 Albumin 100 Anidulafungin 130 Medicated IV 108 145 76 CC - Dexmedetomidine/ 58 Precedex GEN - Magnesium 50 propofol 145 76 Oral 0 0 0 0 Tube Feeding 1610 878 541 Tube Feeding Flush Amount 65 130 NG Tube Irrigate Amount 0 0 0 Output: NG Tube Drainage Amount 0 0 Wound Vac 100 0 0 0 Urine 0 Frost 2715 5320 1165 85 Liquid Stool 75 350 150 300 Colostomy 200 475 225 Estimated Blood Loss 0 0 0 Other: Estimated Void Small Date of Last Bowel 09/10/18 09/12/18 09/13/18 Movement # Bowel Movements 1 Estimated Stool Amount Large # Voids 1 PEX: Comfortable-awake on ventilator Abd is soft and slightly distended. Wound vac in place. Ostomy pink with thick brown stool in bag. Laboratory Results - last 24 hr 09/13/18 09/13/18 09/13/18 04:00 04:00 04:00 WBC 20.5 H RBC 3.07 L Hgb 8.3 L Hct 26 L MCV 85 MCH 27 MCHC 32 RDW 16 H Plt Count 292 MPV 8.5 Neut % (Auto) 90.0 Lymph % (Auto) 2.7 [place] % (Auto) 6.8 Eos % (Auto) 0.2 Baso % (Auto) 0.3 Absolute Neuts (auto) 18.4 H Absolute Lymphs (auto) 0.6 L Absolute Monos (auto) 1.4 H Absolute Eos (auto) 0.0 Absolute Basos (auto) 0.1 Absolute Nucleated RBC 0.0 Nucleated RBC % 0.0 Sodium 139 Potassium 3.9 Chloride 108 Carbon Dioxide 27 Anion Gap 4 BUN 16 Creatinine 0.47 L Est GFR ( Amer) 157.2 Est GFR (Non-Af Amer) 129.9 BUN/Creatinine Ratio 34.0 H Glucose 168 H Calcium 7.8 L Ionized Calcium 1.09 L Total Bilirubin 0.40 AST 20 ALT 17 Alkaline Phosphatase 74 Total Protein 5.1 L Albumin 2.6 L Globulin 2.5 Albumin/Globulin Ratio 1.0 Assessment: S/P exlap X 3 for perforated sigmoid diverticula with colostomy--peritonitis Sepsis-resolved Ventilator dependence-s/p trach. WBC decreasing Plan: Complete antibiotic course Tube feeds Vent wean Wound care Appreciate ICU care
[2018-09-13] MEDS: Anidulafungin* 100 MG in NS 0.9% 100 ML* 100 ML IVPB SCH (15:31)
[2018-09-14 04:12] LABS: Hematocrit 24 % (35-47); Hemoglobin 7.7 g/dL (12.0-16.0); Mean Corpuscular HGB Conc 32 g/dL (31-36); Mean Corpuscular Hemoglobin 28 pg (27-31); Mean Corpuscular Volume 86 fL (80-97); Mean Platelet Volume 8.1 fL (7.4-10.4); Platelet Count 297 10^3/uL (150-450); Red Blood Count 2.74 10^6 /uL (3.70-4.87); Red Cell Distribution Width 16 % (10.5-15); White Blood Count 20.1 10^3/uL (3.5-10.8)
[2018-09-14 04:32] LABS: BUN/Creatinine Ratio 37.8 (8-20); Calcium 7.7 mg/dL (8.6-10.3); EGFR African American 207.1 (>60); EGFR Non-African American 171.2 (>60); Magnesium 2.1 mg/dL (1.9-2.7); Phosphorus 2.5 mg/dL (2.5-5.0); Potassium 3.9 mmol/L (3.5-5.0)
[2018-09-14] MEDS: Chlorhexidine MOUTHWASH 0.12%* 15 ML UDC TOPICAL SCH ×3 (04:46→12:00)
[2018-09-14] MEDS: Acetaminophen ADULT LIQ* 650 MG/20.3 ML UDC G TUBE SCH ×4 (05:39→22:33)
[2018-09-14] MEDS: Heparin VIAL(*) 5000 UNITS/ML VIAL (FIVE THOUSAND) SUBCUT SCH ×3 (05:39→22:33)
[2018-09-14] MEDS: Famotidine IV* 10 MG/ML 2 ML (20 mg) IV SCH (08:30)
--- NOTE | 2018-09-14 10:20 | PN ---
Progress Note - Progress Note Date of Service: 09/14/18 SOAP: Subjective: Continues to be more awake and alert Doing well with trach-weaning support Tolerating tube feeds Objective: Temp Pulse Resp BP Pulse Ox 99.1 F 86 27 117/60 99 09/14/18 09:00 09/14/18 09:00 09/14/18 09:00 09/14/18 09:00 09/14/18 09:00 Intake & Output 09/12/18 09/13/18 09/14/18 09/15/18 06:59 06:59 06:59 06:59 Intake Total 2167 1427 1860 Output Total 6145 1540 1560 95 Balance -3978 -113 300 -95 Weight 158 lb 9.6 oz 168 lb 11.2 oz 167 lb 15.876 oz Intake: IV Fluids 1014 810 262 ABX - ZOSYN 100 109 Albumin 200 NS 171 701 262 kcl 293 potassium Phosphate 250 IVPB 135 Anidulafungin 135 Medicated IV 145 76 propofol 145 76 Oral 0 0 0 Tube Feeding 311 427 4251 Tube Feeding Flush Amount 130 30 NG Tube Irrigate Amount 0 0 Output: NG Tube Drainage Amount 0 Wound Vac 0 0 0 Urine 0 Frost 5320 1165 835 95 Liquid Stool 350 150 600 Colostomy 475 225 125 Estimated Blood Loss 0 0 Other: Estimated Void Small Date of Last Bowel 09/12/18 09/13/18 Movement # Bowel Movements 1 Estimated Stool Amount Large # Voids 1 PEX: Comfortable-awake and alert-follow commands Abd is soft and distended. Wound edges clean and pink, mesh in good position. Wound vac changed. Ostomy pink with stool output. Labs noted--WBC 20K Assessment: S/P exlap sigmoid colon resection with colostomy for perforated sigmoid diverticulum Peritonitis-resolved Sepsis-resolved Vent dependence s/p tracheostomy Plan: Wean vent support-on PEEP and PS only Tube feeds Wound care Discussed with Dr. Alejandro, Testing Specialist
[2018-09-14] MEDS: PTO:Budesonide/Formote 160/4.5(NF) MDI INH SCH ×2 (10:34→23:45)
[2018-09-14 11:16] LABS: ABS Eosinophils 0.2 10^3/ul (0-0.6); ABS Lymphocytes 0.6 10^3/ul (1.0-4.8); ABS Monocytes 1.4 10^3/ul (0-0.8); ABS Neutrophils 17.9 10^3/ul (1.5-7.7); Eosinophil % 1.1 %; Lymphocyte % 2.8 %
[2018-09-14 11:18] LABS: Polychromasia 1+
[2018-09-14] MEDS: Anidulafungin* 100 MG in NS 0.9% 100 ML* 100 ML IVPB SCH (14:29)
--- NOTE | 2018-09-14 18:17 | PN ---
Date of Service: 09/14/18 - [facility] note Critical Care Services: Pt seen and examined at bedside. Pt cant verbalize sec to trach. Denies any issues. Active Medications Generic Name Dose Route Start Last Admin Trade Name Freq PRN Reason Stop Dose Admin Acetaminophen 650 mg 09/10/18 17:00 09/14/18 11:28 Tylenol Adult Liq* G TUBE 650 mg Q6H EMIL Administration Albuterol 2.5 mg 08/30/18 04:13 09/05/18 02:01 Ventolin 2.5 Mg/3 Ml Neb.Dang* INH 2.5 mg Q6H PRN Administration WHEEZING Budesonide/Formoterol Fumarate 2 puff 08/31/18 21:00 09/14/18 10:34 Symbicort 160/4.5 (Nf) INH Not Given BID [facility] Protocol Famotidine 20 mg 09/05/18 09:00 09/14/18 08:30 Pepcid Iv* IV 20 mg DAILY EMIL Administration Heparin Sodium (Porcine) 5,000 units 09/01/18 10:15 09/14/18 14:29 Heparin Vial(*) SUBCUT 5,000 units Q8HR EMIL Administration Heparin Sodium (Porcine) 1 - 3 ml 09/12/18 18:00 09/14/18 05:40 Heparin Flush Picc/Ml/Cvc(*) FLUSH 2 ml 0600,1800 EMIL Administration Protocol Anidulafungin 100 mg/ Sodium 130 mls @ 65 mls/hr 09/04/18 14:00 09/14/18 14: 29 Chloride IVPB 09/17/18 23:00 65 mls/hr Q24H EMIL Administration Ondansetron HCl 4 mg 08/31/18 20:00 Zofran Inj* IV Q6H PRN NAUSEA Oxycodone HCl 5 mg 09/10/18 14:33 09/10/18 18:20 Oxycodone Oral.Soln* PO 5 mg Q4H PRN Administration PAIN Pharmacy Consult 1 note 08/29/18 16:00 Zosyn Per Pharmacy* FOLLOW UP .ZOSYN PER PHARMACY [facility] Vital Signs Temp Pulse Resp BP Pulse Ox 99.0 F 91 36 155/78 98 09/14/18 14:00 09/14/18 14:00 09/14/18 14:00 09/14/18 14:00 09/14/18 14:00 Vital Signs: Temp Pulse Resp BP SpO2 FiO2 99.0 F 91 36 155/78 98 40 09/14/18 14:00 09/14/18 14:00 09/14/18 14:00 09/14/18 14:00 09/14/18 14:00 09/14 08:00 Physical Exam: O/E: Pt in NAD HEENT: PERRLA, no JVD, NGT+, trach+ Lungs: Good a/e b/l CVS: S1, S2+ Abd: Soft, BS+, Ext: No edema Neuro: ALert, awake, follows commands Fluid Balance (Past 24 Hours): I= 128 O= 550 Net -422 Intake & Output 09/12/18 09/13/18 09/14/18 09/15/18 06:59 06:59 06:59 06:59 Intake Total 2167 1427 1860 128 Output Total 6145 1540 1560 550 Balance -3978 -113 300 -422 Weight 158 lb 9.6 oz 168 lb 11.2 oz 167 lb 15.876 oz Intake: IV Fluids 1014 810 262 128 ABX - ZOSYN 100 109 Albumin 200 NS 171 701 262 128 kcl 293 potassium Phosphate 250 IVPB 135 Anidulafungin 135 Medicated IV 145 76 propofol 145 76 Oral 0 0 0 Tube Feeding 930 524 1550 Tube Feeding Flush Amount 130 30 NG Tube Irrigate Amount 0 0 Output: NG Tube Drainage Amount 0 Wound Vac 0 0 0 Urine 0 Frost 5320 1165 835 550 Liquid Stool 350 150 600 Colostomy 475 225 125 Estimated Blood Loss 0 0 Other: Estimated Void Small Date of Last Bowel 09/12/18 09/13/18 Movement # Bowel Movements 1 Estimated Stool Amount Large # Voids 1 Labs: Laboratory Results - last 24 hr 09/14/18 09/14/18 04:01 04:01 WBC 20.1 H RBC 2.74 L Hgb 7.7 L Hct 24 L MCV 86 MCH 28 MCHC 32 RDW 16 H Plt Count 297 MPV 8.1 Neut % (Auto) 89.2 Lymph % (Auto) 2.8 [place] % (Auto) 6.9 Eos % (Auto) 1.1 Baso % (Auto) 0.0 Absolute Neuts (auto) 17.9 H Absolute Lymphs (auto) 0.6 L Absolute Monos (auto) 1.4 H Absolute Eos (auto) 0.2 Absolute Basos (auto) 0.0 Absolute Nucleated RBC 0.0 Neutrophils % 84.0 Lymphocytes % 5.0 Monocytes % 11.0 Nucleated RBC % 0.0 Normal RBC Morphology Not Reportable Polychromasia 1+ Hypochromasia 1+ Anisocytosis 1+ Hem Pathologist Commnt Sodium 141 Potassium 3.9 Chloride 109 Carbon Dioxide 28 Anion Gap 4 BUN 14 Creatinine 0.37 L Est GFR ( Amer) 207.1 Est GFR (Non-Af Amer) 171.2 BUN/Creatinine Ratio 37.8 H Glucose 154 H Calcium 7.7 L Phosphorus 2.5 Magnesium 2.1 Nutrition: Tube feeds Impression: 73 F with prolonged intubation/mechanical ventilation admitted for perforated sigmoid colon in the setting of diverticultis # Ex-lap x 3 for perforated sigmoid colon diverticulitis # Sepsis/septic shock-resolved # Acute respiratory failure, now prolonged intubation and mechanical ventilation s/p trach # Progressive leukocytosis- non toxic appearance, improving values # Anemia- H/H stable, no S/Sx of acute/active blood loss # anasarca, pleural effusion # Critical illness polyneuromyopathy Plan: - Surgical management as per Dr. Sanchez - Patient tolerating tube feeds - Continue with zosyn and antifungal - Blood cultures x 2 09/10- 04/21(central line) Staph epidermidis. Suspected contaminant. Central line removed 09/12 - S/p trach by ENT 09/12. Patient tolerated trach collar, will place on vent at night if needed PPX DVT- SQH GI- H2B Code: Full Dispo: Monitor in MICU; Consider planning for LTAC when acute issues addressed Can be transferred to floor if not requiring vent Critical Care Time: 35 minutes
[2018-09-15] MEDS: Acetaminophen ADULT LIQ* 650 MG/20.3 ML UDC G TUBE SCH ×4 (05:16→23:42)
[2018-09-15] MEDS: Heparin VIAL(*) 5000 UNITS/ML VIAL (FIVE THOUSAND) SUBCUT SCH ×3 (05:16→21:15)
[2018-09-15 06:03] LABS: ABS Basophils 0.1 10^3/ul (0-0.2); ABS Lymphocytes 0.7 10^3/ul (1.0-4.8); ABS Monocytes 1.1 10^3/ul (0-0.8); ABS Neutrophils 15.9 10^3/ul (1.5-7.7); Eosinophil % 0.2 %; Hematocrit 25 % (35-47); Hemoglobin 7.9 g/dL (12.0-16.0); Lymphocyte % 4.1 %; Mean Corpuscular HGB Conc 32 g/dL (31-36); Mean Corpuscular Hemoglobin 28 pg (27-31); Mean Corpuscular Volume 86 fL (80-97); Mean Platelet Volume 8.2 fL (7.4-10.4); Platelet Count 344 10^3/uL (150-450); Red Blood Count 2.88 10^6 /uL (3.70-4.87); Red Cell Distribution Width 16 % (10.5-15); White Blood Count 17.9 10^3/uL (3.5-10.8)
[2018-09-15 06:28] LABS: BUN/Creatinine Ratio 45.2 (8-20); Calcium 7.9 mg/dL (8.6-10.3); EGFR African American 254.1 (>60); Magnesium 2.1 mg/dL (1.9-2.7); Phosphorus 2.3 mg/dL (2.5-5.0)
[2018-09-15] MEDS: PTO:Budesonide/Formote 160/4.5(NF) MDI INH SCH ×2 (07:24→19:07)
[2018-09-15] MEDS: Famotidine IV* 10 MG/ML 2 ML (20 mg) IV SCH (07:55)
[2018-09-15] MEDS: Albuterol 2.5 MG/3 ML NEB.SOL* (0.083%) INH PRN ×2 (11:04→17:41)
--- NOTE | 2018-09-15 11:28 | PN ---
Progress Note - Progress Note Date of Service: 09/15/18 Note: Surgery Progress Note S: No acute overnight events noted. Patient was on trach collar most of day yesterday, VAC changed by Dr. Sanchez. TFs at goal, remains afebrile. O: Vital Signs - 24 hr 09/14/18 09/14/18 09/14/18 11:30 11:45 12:00 Temperature 99.3 F 99.1 F 99.1 F Pulse Rate 94 96 97 Respiratory 39 35 34 Rate Blood Pressure (mmHg) O2 Sat by Pulse 96 96 95 Oximetry 09/14/18 09/14/18 09/14/18 12:01 12:15 12:30 Temperature 99.1 F 99.1 F 99.0 F Pulse Rate 97 98 90 Respiratory 32 40 33 Rate Blood Pressure 176/88 (mmHg) O2 Sat by Pulse 95 93 91 Oximetry 09/14/18 09/14/18 09/14/18 12:45 13:00 13:15 Temperature 99.0 F 99.0 F 99.0 F Pulse Rate 85 89 88 Respiratory 27 32 31 Rate Blood Pressure (mmHg) O2 Sat by Pulse 91 92 92 Oximetry 09/14/18 09/14/18 09/14/18 13:30 13:45 14:00 Temperature 99.0 F 99.0 F 99.0 F Pulse Rate 90 93 91 Respiratory 37 37 36 Rate Blood Pressure 155/78 (mmHg) O2 Sat by Pulse 93 94 98 Oximetry 09/14/18 09/14/18 09/14/18 14:15 14:30 14:45 Temperature 99.1 F 99.1 F 99.1 F Pulse Rate 94 94 98 Respiratory 38 35 38 Rate Blood Pressure (mmHg) O2 Sat by Pulse 98 98 93 Oximetry 09/14/18 09/14/18 09/14/18 15:00 15:15 15:30 Temperature 99.0 F 99.0 F 98.8 F Pulse Rate 97 98 92 Respiratory 36 36 34 Rate Blood Pressure 166/84 (mmHg) O2 Sat by Pulse 95 93 97 Oximetry 09/14/18 09/14/18 09/14/18 15:45 16:00 16:15 Temperature 98.8 F 99.0 F 99.0 F Pulse Rate 95 89 87 Respiratory 37 34 28 Rate Blood Pressure 160/76 (mmHg) O2 Sat by Pulse 96 94 93 Oximetry 09/14/18 09/14/18 09/14/18 16:30 16:45 17:00 Temperature 99.0 F 99.1 F 99.1 F Pulse Rate 94 92 93 Respiratory 35 33 39 Rate Blood Pressure 161/77 (mmHg) O2 Sat by Pulse 95 94 94 Oximetry 09/14/18 09/14/18 09/14/18 17:15 17:30 17:45 Temperature 99.1 F 99.1 F 99.1 F Pulse Rate 95 92 93 Respiratory 37 38 38 Rate Blood Pressure (mmHg) O2 Sat by Pulse 94 95 95 Oximetry 09/14/18 09/14/18 09/14/18 18:00 18:15 18:30 Temperature 99.1 F 99.1 F 99.3 F Pulse Rate 98 93 91 Respiratory 32 38 40 Rate Blood Pressure 167/85 (mmHg) O2 Sat by Pulse 96 95 95 Oximetry 09/14/18 09/14/18 09/14/18 18:45 19:00 19:15 Temperature 99.3 F 99.1 F 99.1 F Pulse Rate 96 95 99 Respiratory 38 39 42 Rate Blood Pressure 170/86 (mmHg) O2 Sat by Pulse 94 94 94 Oximetry 09/14/18 09/14/18 09/14/18 19:30 19:45 20:00 Temperature 99.1 F 99.1 F 99.3 F Pulse Rate 97 91 92 Respiratory 35 Rate Blood Pressure 134/73 (mmHg) O2 Sat by Pulse 97 98 98 Oximetry 09/14/18 09/14/18 09/14/18 20:15 20:30 20:45 Temperature 99.5 F 99.5 F 99.7 F Pulse Rate 91 93 90 Respiratory Rate Blood Pressure (mmHg) O2 Sat by Pulse 98 98 98 Oximetry 09/14/18 09/14/18 09/14/18 21:00 21:15 21:30 Temperature 99.5 F 99.5 F 99.5 F Pulse Rate 96 96 94 Respiratory 32 Rate Blood Pressure 140/79 (mmHg) O2 Sat by Pulse 98 98 99 Oximetry 09/14/18 09/14/18 09/14/18 21:45 22:00 22:15 Temperature 99.5 F 99.7 F 99.7 F Pulse Rate 91 97 101 Respiratory 31 Rate Blood Pressure 133/71 (mmHg) O2 Sat by Pulse 99 99 98 Oximetry 09/14/18 09/14/18 09/14/18 22:30 22:45 23:00 Temperature 99.5 F 99.3 F 99.5 F Pulse Rate 100 98 92 Respiratory 28 Rate Blood Pressure 147/83 (mmHg) O2 Sat by Pulse 98 98 97 Oximetry 09/14/18 09/14/18 09/14/18 23:15 23:30 23:45 Temperature 99.3 F 99.1 F 99.1 F Pulse Rate 87 88 Respiratory Rate Blood Pressure (mmHg) O2 Sat by Pulse 96 96 Oximetry 09/15/18 09/15/18 09/15/18 00:00 00:12 00:15 Temperature 99.1 F 99.1 F 99.1 F Pulse Rate 82 85 85 Respiratory 26 Rate Blood Pressure 127/65 (mmHg) O2 Sat by Pulse 97 98 98 Oximetry 09/15/18 09/15/18 09/15/18 00:30 00:45 01:00 Temperature 99.3 F 99.3 F 99.3 F Pulse Rate 83 85 94 Respiratory 34 Rate Blood Pressure 143/73 (mmHg) O2 Sat by Pulse 98 97 98 Oximetry 09/15/18 09/15/18 09/15/18 01:15 01:30 01:45 Temperature 99.3 F 99.1 F 99.1 F Pulse Rate 89 86 93 Respiratory Rate Blood Pressure (mmHg) O2 Sat by Pulse 98 98 98 Oximetry 09/15/18 09/15/18 09/15/18 02:00 02:15 02:30 Temperature 99.1 F 99.3 F 99.3 F Pulse Rate 85 85 93 Respiratory 24 Rate Blood Pressure 145/69 (mmHg) O2 Sat by Pulse 97 98 98 Oximetry 09/15/18 09/15/18 09/15/18 02:45 03:00 03:15 Temperature 99.1 F 99.3 F 99.3 F Pulse Rate 84 86 85 Respiratory 26 Rate Blood Pressure 152/74 (mmHg) O2 Sat by Pulse 98 99 99 Oximetry 09/15/18 09/15/18 09/15/18 03:30 03:45 04:00 Temperature 99.3 F 99.3 F 99.3 F Pulse Rate 87 90 83 Respiratory 27 Rate Blood Pressure (mmHg) O2 Sat by Pulse 98 97 97 Oximetry 09/15/18 09/15/18 09/15/18 04:15 04:30 04:45 Temperature 99.5 F 99.5 F 99.5 F Pulse Rate 82 86 84 Respiratory Rate Blood Pressure (mmHg) O2 Sat by Pulse 97 97 97 Oximetry 09/15/18 09/15/18 09/15/18 05:00 05:15 05:30 Temperature 99.7 F 99.5 F 99.5 F Pulse Rate 92 90 98 Respiratory 34 Rate Blood Pressure 158/82 (mmHg) O2 Sat by Pulse 98 98 97 Oximetry 09/15/18 09/15/18 09/15/18 05:45 06:00 06:15 Temperature 99.3 F 99.5 F 99.5 F Pulse Rate 87 93 88 Respiratory 35 Rate Blood Pressure 138/76 (mmHg) O2 Sat by Pulse 98 98 98 Oximetry 09/15/18 09/15/18 09/15/18 06:30 06:45 07:00 Temperature 99.3 F 99.3 F 99.3 F Pulse Rate 93 83 86 Respiratory 26 Rate Blood Pressure 118/63 (mmHg) O2 Sat by Pulse 98 98 98 Oximetry 09/15/18 09/15/18 09/15/18 07:15 07:30 07:45 Temperature 99.3 F 99.3 F 99.3 F Pulse Rate 88 89 89 Respiratory Rate Blood Pressure (mmHg) O2 Sat by Pulse 98 97 98 Oximetry 09/15/18 09/15/18 09/15/18 08:00 08:15 08:30 Temperature 99.1 F 99.3 F 99.3 F Pulse Rate 87 84 83 Respiratory 29 Rate Blood Pressure 134/75 (mmHg) O2 Sat by Pulse 97 98 98 Oximetry 09/15/18 09/15/18 09/15/18 08:45 09:00 09:15 Temperature 99.5 F 99.5 F 99.5 F Pulse Rate 83 88 89 Respiratory 28 Rate Blood Pressure 139/72 (mmHg) O2 Sat by Pulse 98 99 98 Oximetry 09/15/18 09/15/18 09/15/18 09:30 09:45 10:00 Temperature 99.5 F 99.3 F 99.1 F Pulse Rate 89 97 95 Respiratory 35 Rate Blood Pressure 164/84 (mmHg) O2 Sat by Pulse 97 97 96 Oximetry 09/15/18 09/15/18 09/15/18 10:15 10:30 10:45 Temperature 99.0 F 99.0 F 99.0 F Pulse Rate 95 89 92 Respiratory Rate Blood Pressure (mmHg) O2 Sat by Pulse 96 96 97 Oximetry 09/15/18 09/15/18 10:59 11:00 Temperature 99.1 F 99.1 F Pulse Rate 96 95 Respiratory 35 36 Rate Blood Pressure 170/90 167/82 (mmHg) O2 Sat by Pulse 97 97 Oximetry Laboratory Results - last 24 hr 09/14/18 09/15/18 09/15/18 04:01 05:10 05:10 WBC 17.9 H RBC 2.88 L Hgb 7.9 L Hct 25 L MCV 86 MCH 28 MCHC 32 RDW 16 H Plt Count 344 MPV 8.2 Neut % (Auto) 89.2 89.2 Lymph % (Auto) 2.8 4.1 [place] % (Auto) 6.9 6.1 Eos % (Auto) 1.1 0.2 Baso % (Auto) 0.0 0.4 Absolute Neuts (auto) 17.9 H 15.9 H Absolute Lymphs (auto) 0.6 L 0.7 L Absolute Monos (auto) 1.4 H 1.1 H Absolute Eos (auto) 0.2 0.0 Absolute Basos (auto) 0.0 0.1 Absolute Nucleated RBC 0.0 0.0 Neutrophils % 84.0 Lymphocytes % 5.0 Monocytes % 11.0 Nucleated RBC % 0.0 0.0 Normal RBC Morphology Not Reportable Polychromasia 1+ Hypochromasia 1+ Anisocytosis 1+ Hem Pathologist Commnt Sodium 139 Potassium 4.0 Chloride 106 Carbon Dioxide 28 Anion Gap 5 BUN 14 Creatinine 0.31 L Est GFR ( Amer) 254.1 Est GFR (Non-Af Amer) 210.0 BUN/Creatinine Ratio 45.2 H Glucose 144 H Calcium 7.9 L Phosphorus 2.3 L Magnesium 2.1 Intake & Output 09/14/18 09/15/18 09/15/18 22:59 06:59 14:59 Intake Total 1038 830 184 Output Total 450 527 255 Balance 588 303 -71 Intake: IV Fluids 162 NS 162 IVPB 135 Anidulafungin 135 Tube Feeding 1038 493 184 Tube Feeding Flush Amount 40 Output: Frost 450 427 255 Liquid Stool 100 Physical exam: General: elderly woman in bad, no apparent distress, cannot speak because of trach but responsive to questions HEENT: trach in place Abd: VAC in place, abdomen distended, colostomy patent with stool Ext: +DP pulses bilaterally, minimal edema A/P: 73 F post op exploratory laparotomy, [facility] (08/31/18, 09/02/18. 09/03/18) for perforated stercoral colitis, slowly improving - TFs at goal - Physical therapy - Tracheostomy for prolonged mechanical ventilation, weaning per ICU team, on trach collar during day and tolerating - Discussed with ICU bakery decorator/hospitalist, patient remains afebrile, has chronic leukocytosis slowly downtrending. Last blood cultures with s. epidermidis likely contaminant. 08/31 intraoperative peritoneal cx +clostridium , enterococus, lex. Per bakery decorator, abx to be DC'ed and patient will undergo 48 period of observation. If she becomes febrile or leukocytosis worsens, abx will likely be restarted. Dr. Marquez to see Monday. - Ppx with pepcid/HSQ
--- NOTE | 2018-09-15 12:33 | PN ---
Date of Service: 09/15/18 Critical Care Services: 24 hours events on TC times >8 hours yesterday patient AO times 3 and in chair remains weak. can only moves toes and fingers Hypertensive today Vital Signs: Temp Pulse Resp BP SpO2 FiO2 99.1 F 95 36 167/82 97 35 09/15/18 11:00 09/15/18 11:00 09/15/18 11:00 09/15/18 11:00 09/15/18 11:00 09/15 09:32 Physical Exam: Gen: on TC. NAD. Lungs: Coarse BS's, Not using accessory muscles Cardiac: RRR Abdomen: Soft, NTP. Wound vac changes yesterday and with minimal drainage. Extremities: No ELOISA Neuro: Following. Weak. Fluid Balance (Past 24 Hours): I= O= Net Intake & Output 09/13/18 09/14/18 09/15/18 09/16/18 06:59 06:59 06:59 06:59 Intake Total 1427 1860 1996 184 Output Total 1540 1560 1327 255 Balance -113 300 669 -71 Weight 168 lb 11.2 oz 167 lb 15.876 oz Intake: IV Fluids 810 262 290 ABX - ZOSYN 109 NS 701 262 290 IVPB 135 135 Anidulafungin 135 135 Medicated IV 76 propofol 76 Oral 0 0 Tube Feeding 541 1433 1531 184 Tube Feeding Flush Amount 30 40 NG Tube Irrigate Amount 0 Output: Wound Vac 0 0 Frost 4386 790 7488 255 Liquid Stool 150 600 100 Colostomy 225 125 Estimated Blood Loss 0 Other: Estimated Void Small Date of Last Bowel 09/13/18 Movement # Bowel Movements 1 Estimated Stool Amount Large # Voids 1 Labs: Laboratory Results - last 24 hr 09/15/18 09/15/18 05:10 05:10 WBC 17.9 H RBC 2.88 L Hgb 7.9 L Hct 25 L MCV 86 MCH 28 MCHC 32 RDW 16 H Plt Count 344 MPV 8.2 Neut % (Auto) 89.2 Lymph % (Auto) 4.1 [place] % (Auto) 6.1 Eos % (Auto) 0.2 Baso % (Auto) 0.4 Absolute Neuts (auto) 15.9 H Absolute Lymphs (auto) 0.7 L Absolute Monos (auto) 1.1 H Absolute Eos (auto) 0.0 Absolute Basos (auto) 0.1 Absolute Nucleated RBC 0.0 Nucleated RBC % 0.0 Sodium 139 Potassium 4.0 Chloride 106 Carbon Dioxide 28 Anion Gap 5 BUN 14 Creatinine 0.31 L Est GFR ( Amer) 254.1 Est GFR (Non-Af Amer) 210.0 BUN/Creatinine Ratio 45.2 H Glucose 144 H Calcium 7.9 L Phosphorus 2.3 L Magnesium 2.1 Impression: 73 F with prolonged intubation/mechanical ventilation admitted for perforated sigmoid colon in the setting of diverticultis # Ex-lap x 3 for perforated sigmoid colon diverticulitis # Sepsis/septic shock-resolved # ARF on CRF with trach and tolerating TC # Progressive leukocytosis- non toxic appearance, improving values # Anemia- H/H stable, no S/Sx of acute/active blood loss # Critical illness polyneuromyopathy Plan: - hold ABX for 24-48 hours. had had prolonged ABX course - Surgical management as per Dr. Sanchez - Patient tolerating tube feeds --keep on TC today times 10-12 hours and continue to advance times for the next several days - needs aggressive PT/OT therapy and will eventually need rehab --add BB for high BP's PPX DVT- S[facility] GI- H2B Critical Care Time: 35 minutes
[2018-09-15] MEDS: oxyCODONE ORAL.SOLN* 5 MG/5 ML UDC PO PRN ×2 (14:16→21:16)
[2018-09-15] MEDS: Metoprolol Tartrate TAB* 25 MG PO SCH (21:16)
[2018-09-15] MEDS ORDERED: Lorazepam PYXIS KEY PRN (23:31)
[2018-09-15] MEDS: LORazepam INJ* 2 MG/ML 1 ML VIAL IV PUSH PRN (23:42)
[2018-09-16] MEDS: Albuterol 2.5 MG/3 ML NEB.SOL* (0.083%) INH PRN (04:19)
[2018-09-16] MEDS: Heparin VIAL(*) 5000 UNITS/ML VIAL (FIVE THOUSAND) SUBCUT SCH ×3 (05:48→21:50)
[2018-09-16] MEDS: Acetaminophen ADULT LIQ* 650 MG/20.3 ML UDC G TUBE SCH ×4 (05:48→21:51)
[2018-09-16] MEDS: LORazepam INJ* 2 MG/ML 1 ML VIAL IV PUSH PRN ×2 (08:07→21:51)
[2018-09-16] MEDS: PTO:Budesonide/Formote 160/4.5(NF) MDI INH SCH ×2 (08:30→19:15)
[2018-09-16] MEDS: Famotidine IV* 10 MG/ML 2 ML (20 mg) IV SCH (08:57)
[2018-09-16] MEDS: oxyCODONE ORAL.SOLN* 5 MG/5 ML UDC PO PRN ×3 (10:03→21:51)
--- NOTE | 2018-09-16 11:04 | PN ---
Date of Service: 09/16/18 Critical Care Services: tolerated TC > 9 hours yesterday without difficulty this morning anxious and did not tolerate TC. after being asked if she wanted more anxiety pills she nodded her head placed back on vent till less nervous and anxious. family not at the bedside taken off abx yesterday. remains AF. started on low dose Metoprolol last night. still somewhat hypertensive (SBP's 150's) Vital Signs: Temp Pulse Resp BP SpO2 FiO2 98.2 F 99 36 154/82 90 35 09/16/18 08:15 09/16/18 08:15 09/16/18 10:03 09/16/18 08:00 09/16/18 08:15 09/16 08:00 Physical Exam: Gen: anxious. trach'd. high Respiratory rate. Lungs: Decreased BS's. minimal secretions Cardiac: RRR Abdomen: Wound vac on. Soft, NTP Extremities: No ELOISA Neuro: Moving all extremities Fluid Balance (Past 24 Hours): I= O= Net Intake & Output 09/14/18 09/15/18 09/16/18 09/17/18 06:59 06:59 06:59 06:59 Intake Total 1860 1996 1608 0 Output Total 1560 1327 1433 190 Balance 300 669 175 -190 Weight 167 lb 15.876 oz 171 lb 1.259 oz Intake: IV Fluids 262 290 47 NS 262 290 47 IVPB 135 135 Anidulafungin 135 135 Oral 0 0 Tube Feeding 1433 1531 1531 Tube Feeding Flush Amount 30 40 30 NG Tube Irrigate Amount 0 Output: NG Tube Drainage Amount 0 WILLY #1 15 Cranial Drain 3 Wound Vac 0 Frost 835 1227 1115 190 Liquid Stool 600 100 Colostomy 125 300 Estimated Blood Loss 0 Impression: 73 F with prolonged intubation/mechanical ventilation admitted for perforated sigmoid colon in the setting of diverticultis # Ex-lap x 3 for perforated sigmoid colon diverticulitis # Sepsis/septic shock-resolved # ARF on CRF with trach and tolerating TC # Progressive leukocytosis- non toxic appearance, improving values # Anemia- H/H stable, no S/Sx of acute/active blood loss # Critical illness polyneuromyopathy Plan: Plan: - continue to hold ABX --PRN benzo's for anxiety - may need to rest today and hold TC trials if so anxious --check CXR - Surgical management as per surgery - Patient tolerating tube feeds - needs aggressive PT/OT therapy and will eventually need rehab --hold on increasng BB's today. if SBP's remain high then will increase to 25 BID tomorrow --PPX --DVT- SQ[facility]
--- NOTE | 2018-09-16 11:16 | PN ---
Progress Note - Progress Note Date of Service: 09/16/18 Note: Surgery Progress Note S: Patient yesterday tolerated trach collar, about 9 hours. Today is more anxious. Yesterday started on metoprolol for HTN, SBP in 150s. Abx stopped yesterday, remains afebrile. Lab holiday today. O: Vital Signs: Temp Pulse Resp BP Pulse Ox 98.2 F 99 36 154/82 90 09/16/18 08:15 09/16/18 08:15 09/16/18 10:03 09/16/18 08:00 09/16/18 08:15 Vital Signs - 24 hr 09/15/18 09/15/18 09/15/18 11:30 11:45 12:00 Temperature 99.3 F 99.3 F 99.3 F Pulse Rate 93 90 94 Respiratory 34 36 35 Rate Blood Pressure 154/88 (mmHg) O2 Sat by Pulse 96 95 95 Oximetry 09/15/18 09/15/18 09/15/18 12:15 12:30 12:45 Temperature 99.3 F 99.3 F 99.3 F Pulse Rate 91 92 94 Respiratory 40 37 38 Rate Blood Pressure (mmHg) O2 Sat by Pulse 96 96 97 Oximetry 09/15/18 09/15/18 09/15/18 12:59 13:00 13:15 Temperature 99.3 F 99.3 F Pulse Rate 91 93 Respiratory 38 35 36 Rate Blood Pressure 155/79 (mmHg) O2 Sat by Pulse 97 98 Oximetry 09/15/18 09/15/18 09/15/18 13:30 13:45 14:00 Temperature 99.3 F 99.3 F 99.3 F Pulse Rate 91 94 95 Respiratory 37 38 42 Rate Blood Pressure 156/84 (mmHg) O2 Sat by Pulse 98 98 97 Oximetry 09/15/18 09/15/18 09/15/18 14:15 14:16 14:30 Temperature 99.3 F 99.1 F Pulse Rate 95 96 Respiratory 37 35 38 Rate Blood Pressure (mmHg) O2 Sat by Pulse 98 92 Oximetry 09/15/18 09/15/18 09/15/18 14:45 15:00 15:15 Temperature 99.1 F 99.1 F 99.3 F Pulse Rate 94 94 91 Respiratory 29 30 28 Rate Blood Pressure 156/80 (mmHg) O2 Sat by Pulse 92 91 99 Oximetry 09/15/18 09/15/18 09/15/18 15:30 15:45 16:00 Temperature 99.3 F 99.3 F 99.1 F Pulse Rate 94 95 95 Respiratory 32 28 30 Rate Blood Pressure 159/86 (mmHg) O2 Sat by Pulse 99 99 98 Oximetry 09/15/18 09/15/18 09/15/18 16:15 16:30 16:45 Temperature 99.3 F 99.3 F Pulse Rate 97 104 93 Respiratory 31 28 34 Rate Blood Pressure (mmHg) O2 Sat by Pulse 98 97 97 Oximetry 09/15/18 09/15/18 09/15/18 17:00 17:15 17:30 Temperature 99.1 F 99.1 F 99.1 F Pulse Rate 92 96 99 Respiratory 26 35 34 Rate Blood Pressure 151/75 (mmHg) O2 Sat by Pulse 97 96 96 Oximetry 09/15/18 09/15/18 09/15/18 17:45 17:49 18:00 Temperature 99.1 F 99.1 F Pulse Rate 94 85 97 Respiratory 35 32 35 Rate Blood Pressure 154/80 (mmHg) O2 Sat by Pulse 96 96 96 Oximetry 09/15/18 09/15/18 09/15/18 18:15 18:30 18:45 Temperature 99.3 F 99.3 F 99.3 F Pulse Rate 107 96 93 Respiratory Rate Blood Pressure (mmHg) O2 Sat by Pulse 96 96 96 Oximetry 09/15/18 09/15/18 09/15/18 19:00 19:15 19:30 Temperature 99.3 F 99.3 F 99.3 F Pulse Rate 93 93 100 Respiratory Rate Blood Pressure 134/67 (mmHg) O2 Sat by Pulse 97 96 96 Oximetry 09/15/18 09/15/18 09/15/18 19:45 20:00 20:15 Temperature 99.1 F 99.1 F 99.3 F Pulse Rate 90 92 97 Respiratory Rate Blood Pressure 131/63 (mmHg) O2 Sat by Pulse 96 96 96 Oximetry 09/15/18 09/15/18 09/15/18 20:30 20:45 21:00 Temperature 99.1 F 99.0 F 99.0 F Pulse Rate 100 100 101 Respiratory 31 Rate Blood Pressure 160/80 (mmHg) O2 Sat by Pulse 96 96 96 Oximetry 09/15/18 09/15/18 09/15/18 21:15 21:16 21:30 Temperature 99.0 F 98.8 F Pulse Rate 105 97 Respiratory 31 Rate Blood Pressure (mmHg) O2 Sat by Pulse 96 97 Oximetry 09/15/18 09/15/18 09/15/18 21:45 22:00 22:15 Temperature 98.8 F 99.0 F 99.0 F Pulse Rate 81 78 83 Respiratory 30 Rate Blood Pressure 148/79 (mmHg) O2 Sat by Pulse 96 95 95 Oximetry 09/15/18 09/15/18 09/15/18 22:30 22:45 23:00 Temperature 99.0 F 99.0 F 99.0 F Pulse Rate 88 90 94 Respiratory 30 Rate Blood Pressure 175/78 (mmHg) O2 Sat by Pulse 95 95 95 Oximetry 09/15/18 09/15/18 09/15/18 23:15 23:30 23:42 Temperature 98.8 F 98.8 F Pulse Rate 97 98 Respiratory 30 Rate Blood Pressure (mmHg) O2 Sat by Pulse 91 91 Oximetry 09/15/18 09/15/18 09/16/18 23:45 23:54 00:00 Temperature 98.8 F Pulse Rate 91 87 Respiratory 25 Rate Blood Pressure 133/66 (mmHg) O2 Sat by Pulse 92 91 Oximetry 09/16/18 09/16/18 09/16/18 00:05 00:15 00:30 Temperature 98.8 F 98.8 F 99.0 F Pulse Rate 88 91 90 Respiratory Rate Blood Pressure (mmHg) O2 Sat by Pulse 91 91 91 Oximetry 09/16/18 09/16/18 09/16/18 00:45 01:00 01:15 Temperature 99.1 F 99.0 F 99.0 F Pulse Rate 97 94 96 Respiratory 31 Rate Blood Pressure 151/70 (mmHg) O2 Sat by Pulse 91 92 92 Oximetry 09/16/18 09/16/18 09/16/18 01:30 01:45 02:00 Temperature 99.0 F 99.0 F 98.8 F Pulse Rate 97 97 99 Respiratory 34 Rate Blood Pressure (mmHg) O2 Sat by Pulse 92 92 94 Oximetry 09/16/18 09/16/18 09/16/18 02:04 02:07 02:15 Temperature 98.8 F 98.8 F 98.8 F Pulse Rate 98 97 91 Respiratory Rate Blood Pressure 152/77 134/80 (mmHg) O2 Sat by Pulse 94 94 93 Oximetry 09/16/18 09/16/18 09/16/18 02:30 02:45 03:00 Temperature 98.8 F 98.6 F 98.6 F Pulse Rate 97 92 96 Respiratory 27 Rate Blood Pressure 144/73 (mmHg) O2 Sat by Pulse 93 94 95 Oximetry 09/16/18 09/16/18 09/16/18 03:15 03:30 03:45 Temperature 98.4 F 98.4 F 98.4 F Pulse Rate 97 96 92 Respiratory Rate Blood Pressure (mmHg) O2 Sat by Pulse 94 95 95 Oximetry 09/16/18 09/16/18 09/16/18 04:00 04:15 04:19 Temperature 98.4 F 98.4 F Pulse Rate 97 104 96 Respiratory 30 30 Rate Blood Pressure 148/77 (mmHg) O2 Sat by Pulse 95 93 96 Oximetry 09/16/18 09/16/18 09/16/18 04:30 04:45 05:00 Temperature 98.4 F 98.6 F 98.8 F Pulse Rate 90 91 91 Respiratory 21 Rate Blood Pressure 92/48 (mmHg) O2 Sat by Pulse 96 95 95 Oximetry 09/16/18 09/16/18 09/16/18 05:15 05:30 05:45 Temperature 98.8 F 98.8 F 98.8 F Pulse Rate 91 88 88 Respiratory Rate Blood Pressure (mmHg) O2 Sat by Pulse 95 96 96 Oximetry 09/16/18 09/16/18 09/16/18 06:00 06:15 06:30 Temperature 99.0 F 99.0 F 99.1 F Pulse Rate 88 86 93 Respiratory 22 Rate Blood Pressure 108/58 (mmHg) O2 Sat by Pulse 96 95 96 Oximetry 09/16/18 09/16/18 09/16/18 06:45 07:00 07:15 Temperature 99.1 F 99.0 F 98.8 F Pulse Rate 93 94 96 Respiratory 26 Rate Blood Pressure 132/64 (mmHg) O2 Sat by Pulse 96 95 96 Oximetry 09/16/18 09/16/18 09/16/18 07:30 07:45 08:00 Temperature 98.8 F 98.6 F 98.4 F Pulse Rate 96 97 101 Respiratory 33 Rate Blood Pressure 154/82 (mmHg) O2 Sat by Pulse 95 95 90 Oximetry 09/16/18 09/16/18 09/16/18 08:07 08:15 10:03 Temperature 98.2 F Pulse Rate 99 Respiratory 44 33 36 Rate Blood Pressure (mmHg) O2 Sat by Pulse 90 Oximetry Laboratory Last Values WBC 17.9 10^3/uL (3.5-10.8) H 09/15/18 05:10 RBC 2.88 10^6 /uL (3.70-4.87) L 09/15/18 05:10 Hgb 7.9 g/dL (12.0-16.0) L 09/15/18 05:10 Hct 25 % (35-47) L 09/15/18 05:10 MCV 86 fL (80-97) 09/15/18 05:10 MCH 28 pg (27-31) 09/15/18 05:10 MCHC 32 g/dL (31-36) 09/15/18 05:10 RDW 16 % (10.5-15) H 09/15/18 05:10 Plt Count 344 10^3/uL (150-450) 09/15/18 05:10 MPV 8.2 fL (7.4-10.4) 09/15/18 05:10 Neut % (Auto) 89.2 % 09/15/18 05:10 Lymph % (Auto) 4.1 % 09/15/18 05:10 [place] % (Auto) 6.1 % 09/15/18 05:10 Eos % (Auto) 0.2 % 09/15/18 05:10 Baso % (Auto) 0.4 % 09/15/18 05:10 Absolute Neuts (auto) 15.9 10^3/ul (1.5-7.7) H 09/15/18 05:10 Absolute Lymphs (auto) 0.7 10^3/ul (1.0-4.8) L 09/15/18 05:10 Absolute Monos (auto) 1.1 10^3/ul (0-0.8) H 09/15/18 05:10 Absolute Eos (auto) 0.0 10^3/ul (0-0.6) 09/15/18 05:10 Absolute Basos (auto) 0.1 10^3/ul (0-0.2) 09/15/18 05:10 Absolute Nucleated RBC 0.0 10^3/ul 09/15/18 05:10 Neutrophils % 84.0 % 09/14/18 04:01 Lymphocytes % 5.0 % 09/14/18 04:01 Monocytes % 11.0 % 09/14/18 04:01 Nucleated RBC % 0.0 09/15/18 05:10 Normal RBC Morphology Not Reportable 09/14/18 04:01 Polychromasia 1+ 09/14/18 04:01 Hypochromasia 1+ 09/14/18 04:01 Anisocytosis 1+ 09/14/18 04:01 Hem Pathologist Commnt 09/14/18 04:01 INR (Anticoag Therapy) 1.03 (0.82-1.09) 09/11/18 12:15 Patient Temperature Not Reportable 09/11/18 16:30 ABG pH 7.50 (7.35-7.45) H 09/11/18 16:30 ABG pH (Temp Correct) Not Reportable 09/11/18 16:30 ABG pCO2 36 mmHg (35-45) 09/11/18 16:30 ABG pCO2 (Temp Corrct Not Reportable 09/11/18 16:30 ABG pO2 82 mmHg (80-100) 09/11/18 16:30 ABG pO2 (Temp Correct Not Reportable 09/11/18 16:30 ABG HCO3 28.7 mmol/L (19-31) 09/11/18 16:30 ABG O2 Saturation 98.8 % (94.0-98.0) H 09/11/18 16:30 ABG Base Excess 4.9 mmol/L (-2.0-2.0) H 09/11/18 16:30 VBG pH 7.31 (7.32-7.43) L 09/02/18 23:00 VBG pCO2 49 mmHg (41-51) 09/02/18 23:00 VBG pO2 40.0 mmHg (35-45) 09/02/18 23:00 VBG HCO3 22.5 mmol/L (24-28) L 09/02/18 23:00 VBG O2 Saturation 68.1 % (70-80) L 09/02/18 23:00 VBG Base Excess -2.1 mmol/L (0.0-4.0) L 09/02/18 23:00 Respiration Rate 18 09/11/18 16:30 O2 Delivery Device vent 09/10/18 21:10 Ventilator Type 350 09/11/18 16:30 Vent Mode cmv 09/11/18 16:30 FiO2 35 09/11/18 16:30 Inspiratory Time 0.8 09/11/18 16:30 PEEP 8 09/11/18 16:30 Pressure Support Not Reportable 09/11/18 16:30 Pressure Control Not Reportable 09/11/18 16:30 EPAP Not Reportable 09/11/18 16:30 IPAP Not Reportable 09/11/18 16:30 BiPAP Not Reportable 09/11/18 16:30 Sodium 139 mmol/L (135-145) 09/15/18 05:10 Potassium 4.0 mmol/L (3.5-5.0) 09/15/18 05:10 Chloride 106 mmol/L (101-111) 09/15/18 05:10 Carbon Dioxide 28 mmol/L (22-32) 09/15/18 05:10 Anion Gap 5 mmol/L (2-11) 09/15/18 05:10 BUN 14 mg/dL (6-24) 09/15/18 05:10 Creatinine 0.31 mg/dL (0.51-0.95) L 09/15/18 05:10 Est GFR ( Amer) 254.1 (>60) 09/15/18 05:10 Est GFR (Non-Af Amer) 210.0 (>60) 09/15/18 05:10 BUN/Creatinine Ratio 45.2 (8-20) H 09/15/18 05:10 Glucose 144 mg/dL (70-100) H 09/15/18 05:10 POC Glucose (mg/dL) 180 mg/dL (70-100) H 09/08/18 12:12 Hemoglobin A1c 6.6 % (4.0-5.6) H 08/31/18 15:51 Lactic Acid 1.6 mmol/L (0.5-2.0) 09/10/18 21:00 Uric Acid 1.5 mg/dL (2.3-6.6) L 09/10/18 21:00 Calcium 7.9 mg/dL (8.6-10.3) L 09/15/18 05:10 Ionized Calcium 1.09 mmol/L (1.16-1.32) L 09/13/18 04:00 Phosphorus 2.3 mg/dL (2.5-5.0) L 09/15/18 05:10 Magnesium 2.1 mg/dL (1.9-2.7) 09/15/18 05:10 Total Bilirubin 0.40 mg/dL (0.2-1.0) 09/13/18 04:00 Direct Bilirubin 0.20 mg/dL (0.03-0.18) H 09/03/18 06:00 Indirect Bilirubin 0.2 mg/dL (0.3-1.0) L 09/03/18 06:00 AST 20 U/L (13-39) 09/13/18 04:00 ALT 17 U/L (7-52) 09/13/18 04:00 Alkaline Phosphatase 74 U/L (34-104) 09/13/18 04:00 Total Creatine Kinase 950 U/L (10-223) H 09/02/18 11:51 Troponin I 0.05 ng/mL (<0.04) H* 09/11/18 08:50 C-Reactive Protein 225.95 mg/L (<8.01) H 08/29/18 10:10 B-Natriuretic Peptide 687 pg/mL (<=100) H 09/10/18 21:00 Total Protein 5.1 g/dL (6.4-8.9) L 09/13/18 04:00 Albumin 2.6 g/dL (3.2-5.2) L 09/13/18 04:00 Globulin 2.5 g/dL (2-4) 09/13/18 04:00 Albumin/Globulin Ratio 1.0 (1-3) 09/13/18 04:00 Triglycerides 154 mg/dL 08/31/18 15:51 Cholesterol 80 mg/dL 08/31/18 15:51 LDL Cholesterol 37 mg/dL 08/31/18 15:51 HDL Cholesterol 11.9 mg/dL 08/31/18 15:51 Lipase < 10 U/L (11.0-82.0) L 08/29/18 10:10 Cortisol 11.86 mcg/dL 09/03/18 19:30 Urine Color Yellow 09/11/18 04:20 Urine Appearance Cloudy 09/11/18 04:20 Urine pH 7.0 (5-9) 09/11/18 04:20 Ur Specific [place] 1.024 (1.010-1.030) 09/11/18 04:20 Urine Protein 1+(30 mg/dl) (Negative) A 09/11/18 04:20 Urine Ketones Negative (Negative) 09/11/18 04:20 Urine Blood Negative (Negative) 09/11/18 04:20 Urine Nitrate Negative (Negative) 09/11/18 04:20 Urine Bilirubin Negative (Negative) 09/11/18 04:20 Urine Urobilinogen Negative (Negative) 09/11/18 04:20 Ur Leukocyte Esterase Negative (Negative) 09/11/18 04:20 Urine WBC (Auto) Absent (Absent) 09/11/18 04:20 Urine RBC (Auto) 3+(>10/hpf) (Absent) A 09/11/18 04:20 Urine Bacteria Absent (Absent) 09/11/18 04:20 Urine Yeast Present (Absent) A 08/31/18 01:09 Urine Glucose Negative (Negative) 09/11/18 04:20 Urine Ascorbic Acid * (Negative) A 09/11/18 04:20 Vancomycin Trough 11.4 mcg/mL 09/02/18 11:51 Blood Type A Positive 08/31/18 20:13 Antibody Screen Negative 08/31/18 20:13 Intake & Output 09/15/18 09/16/18 09/16/18 22:59 06:59 14:59 Intake Total 437 940 0 Output Total 415 308 190 Balance 22 632 -190 Weight 171 lb 1.259 oz Intake: Oral 0 Tube Feeding 437 910 Tube Feeding Flush Amount 30 NG Tube Irrigate Amount 0 Output: NG Tube Drainage Amount 0 WILLY #1 15 Cranial Drain 3 Frost 415 290 190 Estimated Blood Loss 0 Physical exam: General: elderly woman in bad, no apparent distress, cannot speak because of trach but responsive to questions HEENT: trach in place Abd: VAC in place, abdomen distended, colostomy patent with stool Ext: +edema A/P: 73 F post op exploratory laparotomy, [facility] (08/31/18, 09/02/18. 09/03/18) for perforated stercoral colitis, improving - TFs at goal - Physical therapy - Tracheostomy for prolonged mechanical ventilation, weaning per ICU team - Will follow up WBC tomorrow, today is second day patient is off abx. Dr. Marquez to consult regarding length of abx therapy if necessary - Ppx with pepcid/HSQ
[2018-09-16] MEDS: Metoprolol Tartrate TAB* 25 MG PO SCH ×2 (11:58→21:51)
[2018-09-17] MEDS: Albuterol 2.5 MG/3 ML NEB.SOL* (0.083%) INH PRN (02:46)
[2018-09-17] MEDS: Acetaminophen ADULT LIQ* 650 MG/20.3 ML UDC G TUBE SCH ×2 (06:52→11:57)
[2018-09-17] MEDS: Heparin VIAL(*) 5000 UNITS/ML VIAL (FIVE THOUSAND) SUBCUT SCH ×3 (06:52→21:14)
[2018-09-17 07:49] LABS: ABS Lymphocytes 0.8 10^3/ul (1.0-4.8); ABS Monocytes 0.9 10^3/ul (0-0.8); ABS Neutrophils 12.6 10^3/ul (1.5-7.7); Eosinophil % 0.3 %; Hematocrit 24 % (35-47); Hemoglobin 7.6 g/dL (12.0-16.0); Lymphocyte % 5.6 %; Mean Corpuscular HGB Conc 31 g/dL (31-36); Mean Corpuscular Hemoglobin 27 pg (27-31); Mean Corpuscular Volume 86 fL (80-97); Mean Platelet Volume 8.2 fL (7.4-10.4); Platelet Count 386 10^3/uL (150-450); Red Blood Count 2.81 10^6 /uL (3.70-4.87); Red Cell Distribution Width 17 % (10.5-15); White Blood Count 14.4 10^3/uL (3.5-10.8)
[2018-09-17 08:06] LABS: Albumin 2.4 g/dL (3.2-5.2); Albumin/Globulin Ratio 0.8 (1-3); BUN/Creatinine Ratio 46.9 (8-20); Calcium 8.2 mg/dL (8.6-10.3); EGFR African American 244.9 (>60); EGFR Non-African American 202.4 (>60); Globulin 3.1 g/dL (2-4); Potassium 4.3 mmol/L (3.5-5.0); Total Bilirubin 0.2 mg/dL (0.2-1.0); Total Protein 5.5 g/dL (6.4-8.9)
[2018-09-17] MEDS: Famotidine IV* 10 MG/ML 2 ML (20 mg) IV SCH (08:51)
[2018-09-17] MEDS: Metoprolol Tartrate TAB* 25 MG PO SCH ×2 (08:51→21:14)
[2018-09-17] MEDS: PTO:Budesonide/Formote 160/4.5(NF) MDI INH SCH ×2 (11:57→19:18)
--- NOTE | 2018-09-17 12:08 | PN ---
Date of Service: 09/17/18 Critical Care Services: 24 Hour events did not tolerate TC yesterday- was anxious off ABX, WBC decreasing and remains AF Vital Signs: Temp Pulse Resp BP SpO2 FiO2 99.3 F 88 24 111/60 95 21 09/17/18 10:30 09/17/18 10:30 09/17/18 07:00 09/17/18 10:00 09/17/18 10:30 09/17 07:51 Physical Exam: Gen Trach'd. Following. NAD. less anxious than yesterday Heart- NSR Lungs- Decreased Breath sounds, not using accessory muscles Abdomen- wound vac on. non-tender to palpation. no rebound or guarding. Extremities- No ELOISA Neuro- Moving all extremities Fluid Balance (Past 24 Hours): I= O= Net Intake & Output 09/15/18 09/16/18 09/17/18 09/18/18 06:59 06:59 06:59 06:59 Intake Total 1995 1608 1652 70 Output Total 1327 1433 1555 201 Balance 669 175 97 -131 Weight 171 lb 1.259 oz Intake: IV Fluids 290 47 NS 290 47 IVPB 135 Anidulafungin 135 Medicated IV 0 KCl 0 Oral 0 0 Tube Feeding 1531 1531 1532 Tube Feeding Flush Amount 40 30 120 70 NG Tube Irrigate Amount 0 Output: NG Tube Drainage Amount 0 WILLY #1 15 Cranial Drain 3 Frost 1227 1115 1355 201 Liquid Stool 100 Colostomy 300 200 Estimated Blood Loss 0 Other: Date of Last Bowel 09/17/18 Movement # Bowel Movements colostomy Labs: Laboratory Results - last 24 hr 09/17/18 09/17/18 07:15 07:15 WBC 14.4 H RBC 2.81 L Hgb 7.6 L Hct 24 L MCV 86 MCH 27 MCHC 31 RDW 17 H Plt Count 386 MPV 8.2 Neut % (Auto) 87.4 Lymph % (Auto) 5.6 [place] % (Auto) 6.5 Eos % (Auto) 0.3 Baso % (Auto) 0.2 Absolute Neuts (auto) 12.6 H Absolute Lymphs (auto) 0.8 L Absolute Monos (auto) 0.9 H Absolute Eos (auto) 0.0 Absolute Basos (auto) 0.0 Absolute Nucleated RBC 0.0 Nucleated RBC % 0.0 Sodium 137 Potassium 4.3 Chloride 102 Carbon Dioxide 29 Anion Gap 6 BUN 15 Creatinine 0.32 L Est GFR ( Amer) 244.9 Est GFR (Non-Af Amer) 202.4 BUN/Creatinine Ratio 46.9 H Glucose 159 H Calcium 8.2 L Magnesium 2.0 Total Bilirubin 0.20 AST 16 ALT 14 Alkaline Phosphatase 89 Total Protein 5.5 L Albumin 2.4 L Globulin 3.1 Albumin/Globulin Ratio 0.8 L Impression: 73 F with prolonged intubation/mechanical ventilation admitted for perforated sigmoid colon in the setting of diverticultis # Ex-lap x 3 for perforated sigmoid colon diverticulitis # Sepsis/septic shock-resolved # ARF on CRF with trach and tolerating TC when not anxious # Anemia- H/H stable, no S/Sx of acute/active blood loss # Critical illness polyneuromyopathy # HTN Plan: hina: - continue to hold ABX --PRN benzo's for anxiety - TC times 8-10 hours today - Surgical management as per surgery - Patient tolerating tube feeds - needs aggressive PT/OT therapy and will eventually need rehab --continue low dose Metoprolol --PPX --DVT- SQH Critical Care Time: 45
[2018-09-17] MEDS: oxyCODONE TAB* 5 MG TAB PO PRN ×2 (15:53→22:06)
--- NOTE | 2018-09-17 16:30 | PN ---
Progress Note - Progress Note Date of Service: 09/17/18 SOAP: Subjective: Care over weekend reviewed and discussed with Dr. Haimlton this morning She is comfortable-working on pulmonary wean Tolerating tube feeds Objective: Temp Pulse Resp BP Pulse Ox 99.3 F 94 37 141/85 92 09/17/18 15:30 09/17/18 15:30 09/17/18 15:00 09/17/18 15:13 09/17/18 15:30 Intake & Output 09/15/18 09/16/18 09/17/18 09/18/18 06:59 06:59 06:59 06:59 Intake Total 1995 1608 1652 552 Output Total 1327 1433 1555 466 Balance 669 175 97 86 Weight 171 lb 1.259 oz Intake: IV Fluids 290 47 NS 290 47 IVPB 135 Anidulafungin 135 Medicated IV 0 KCl 0 Oral 0 0 Tube Feeding 1531 1531 1532 432 Tube Feeding Flush Amount 40 30 120 120 NG Tube Irrigate Amount 0 Output: NG Tube Drainage Amount 0 WILLY #1 15 Cranial Drain 3 Frost 1227 1115 1355 456 Liquid Stool 100 Colostomy 300 200 10 Estimated Blood Loss 0 Other: Date of Last Bowel 09/17/18 Movement # Bowel Movements colostomy PEX: Comfortable-awake and alert Abd is soft and slightly distended. Wound vac changed--biologic mesh in place, some granulation tissue noted. [place] wound edges. Labs noted Assessment: S/P ex lap X 3 for perforated sigmoid diverticulitis-colostomy with peritonitis and sepsis Vent dependence Plan: Trach trials Off antibiotics Tube feeds Placement plans
[2018-09-17] MEDS: Acetaminophen TAB* 325 MG PO PRN (18:32)
[2018-09-18] MEDS: LORazepam INJ* 2 MG/ML 1 ML VIAL IV PUSH PRN ×3 (00:37→23:07)
[2018-09-18] MEDS: Heparin VIAL(*) 5000 UNITS/ML VIAL (FIVE THOUSAND) SUBCUT SCH ×3 (05:04→22:01)
[2018-09-18] MEDS: Acetaminophen TAB* 325 MG PO PRN ×2 (05:06→20:19)
[2018-09-18] MEDS: oxyCODONE TAB* 5 MG TAB PO PRN (05:06)
[2018-09-18 05:40] LABS: ABS Basophils 0.1 10^3/ul (0-0.2); ABS Lymphocytes 0.9 10^3/ul (1.0-4.8); ABS Monocytes 0.9 10^3/ul (0-0.8); ABS Neutrophils 11.3 10^3/ul (1.5-7.7); Eosinophil % 0.3 %; Hematocrit 24 % (35-47); Hemoglobin 7.8 g/dL (12.0-16.0); Lymphocyte % 6.7 %; Mean Corpuscular HGB Conc 32 g/dL (31-36); Mean Corpuscular Hemoglobin 27 pg (27-31); Mean Corpuscular Volume 85 fL (80-97); Mean Platelet Volume 7.8 fL (7.4-10.4); Nucleated Red Blood Cells % 0.1; Platelet Count 443 10^3/uL (150-450); Red Blood Count 2.86 10^6 /uL (3.70-4.87); Red Cell Distribution Width 16 % (10.5-15); White Blood Count 13.2 10^3/uL (3.5-10.8)
[2018-09-18 05:50] LABS: Albumin 2.5 g/dL (3.2-5.2); Albumin/Globulin Ratio 0.8 (1-3); BUN/Creatinine Ratio 45.2 (8-20); Calcium 8.1 mg/dL (8.6-10.3); EGFR African American 254.1 (>60); Globulin 3.2 g/dL (2-4); Potassium 4.4 mmol/L (3.5-5.0); Total Bilirubin 0.3 mg/dL (0.2-1.0); Total Protein 5.7 g/dL (6.4-8.9)
[2018-09-18] MEDS: PTO:Budesonide/Formote 160/4.5(NF) MDI INH SCH ×2 (08:07→19:27)
[2018-09-18] MEDS: Famotidine IV* 10 MG/ML 2 ML (20 mg) IV SCH (09:28)
[2018-09-18] MEDS: Metoprolol Tartrate TAB* 25 MG PO SCH ×2 (09:30→20:19)
--- NOTE | 2018-09-18 13:11 | PN ---
Progress Note - Progress Note Date of Service: 09/18/18 SOAP: Subjective: Was out of bed for three hours this morning Still requiring pressure support after periods on trach mask Tolerating tube feeds Objective: Temp Pulse Resp BP Pulse Ox 99.9 F 94 29 134/75 97 09/18/18 12:00 09/18/18 12:00 09/18/18 12:00 09/18/18 12:00 09/18/18 12:00 PEX: Comfortable Abd is soft and slightly distended. Wound vac in place Ostomy pink with some stool in bag Assessment: S/P exlap X 3 for peritonitis-perforated sigmoid diverticula with colostomy Plan: PS wean Tube feeds Wound care
--- NOTE | 2018-09-18 13:24 | PN ---
Date of Service: 09/18/18 Critical Care Services: remains anxious. only lasted 90 minutes on TC yesterday does not want to even attempt TC today. asking nurses if she will ever get better Vital Signs: Temp Pulse Resp BP SpO2 FiO2 99.9 F 94 29 134/75 97 30 09/18/18 12:00 09/18/18 12:00 09/18/18 12:00 09/18/18 12:00 09/18/18 12:00 09/18 12:59 Physical Exam: Trach'd sitting in chair. good eye contact. appears down though RRR CTA B/L WOund vac with minimal drainage. No ELOISA Can only move fingers and toes. cannot lift up arms or legs Fluid Balance (Past 24 Hours): I= O= Net Intake & Output 09/16/18 09/17/18 09/18/18 09/19/18 06:59 06:59 06:59 06:59 Intake Total 1608 1652 1537 50 Output Total 1433 1555 1221 520 Balance 175 97 316 -470 Weight 171 lb 1.259 oz 150 lb Intake: IV Fluids 47 NS 47 Medicated IV 0 KCl 0 Oral 0 0 Tube Feeding 1531 1532 1342 Tube Feeding Flush Amount 30 120 195 50 NG Tube Irrigate Amount 0 Output: NG Tube Drainage Amount 0 WILLY #1 15 Cranial Drain 3 Wound Vac 100 Frost 1115 1355 1111 520 Colostomy 300 200 10 Estimated Blood Loss 0 Tube Feeding Residual 0 Amount Wasted Other: Date of Last Bowel 09/17/18 Movement # Bowel Movements colostomy ADLs: Meal Record Start: 08/29/18 16: 46 Freq: Status: Complete Protocol: Created 08/29/18 16:46 System (Rec: 08/29/18 16:46 System SSU-C12) Document 08/31/18 08:14 TRZ0825 (Rec: 08/31/18 08:14 VSP3042 SSU-C04) Document 08/31/18 12:24 ZBF5138 (Rec: 08/31/18 12:25 MZD0740 SSU-C04) ADLs: Meal Record Start: 08/31/18 17: 06 Freq: 09,13,18 Status: Inactive Protocol: Created 08/31/18 17:06 DGR6331 (Rec: 08/31/18 17:06 QXY2877 ICU-M23) Document 08/31/18 18:00 FVM7534 (Rec: 08/31/18 20:04 GBW8628 ICU-C21) Intake and Output Start: 08/29/18 09: 06 Freq: Status: Active Protocol: Created 08/29/18 09:06 System (Rec: 08/29/18 09:06 System EDRM-C04) Document 08/30/18 00:00 HHK3249 (Rec: 08/30/18 06:50 ASG7668 SSU-M14) Intake and Output Start: 08/29/18 16: 46 Freq: DAILY@0600,1400,2200 Status: Complete Protocol: Created 08/29/18 16:46 System (Rec: 08/29/18 16:46 System SSU-C12) Document 08/29/18 22:10 IBN4864 (Rec: 08/29/18 22:11 SRD2854 SSU-M18) Document 08/30/18 03:59 AJX4484 (Rec: 08/30/18 03:59 RLY3280 SSU-M14) Document 08/30/18 06:34 NKV5378 (Rec: 08/30/18 06:34 VER6321 SSU-C09) Document 08/30/18 14:16 ZXL9893 (Rec: 08/30/18 14:16 PEI3819 SSU-C08) Document 08/30/18 18:30 DIW0349 (Rec: 08/30/18 22:44 EZW9351 SSU-M17) Document 08/30/18 22:44 SOD2361 (Rec: 08/30/18 22:46 EHT3009 SSU-M17) Document 08/31/18 01:13 QSB6891 (Rec: 08/31/18 01:14 HUW9766 SSU-C03) Document 08/31/18 05:51 BRJ3296 (Rec: 08/31/18 05:51 JIN9021 SSU-C03) Document 08/31/18 06:36 WBF3748 (Rec: 08/31/18 06:36 LJJ7530 SSU-C03) Document 08/31/18 12:26 LPH7422 (Rec: 08/31/18 12:26 IYG0355 SSU-C04) Document 08/31/18 14:19 ZRK3789 (Rec: 08/31/18 14:20 NBO4472 U-C04) Intake and Output Start: 08/31/18 17: 06 Freq: Q1HR Status: Active Protocol: Created 08/31/18 17:06 SAB8246 (Rec: 08/31/18 17:06 KVF6712 ICU-M23) Document 08/31/18 18:00 VVZ7553 (Rec: 08/31/18 20:04 WSU3517 ICU-C21) Document 08/31/18 19:00 FLT0615 (Rec: 09/01/18 01:29 TCR9918 ICU-C25) Document 08/31/18 20:00 UKR5218 (Rec: 09/01/18 01:41 TKQ1039 ICU-C25) Document 08/31/18 22:00 AUK3139 (Rec: 09/01/18 01:46 XVE1477 ICU-C25) Document 08/31/18 23:00 YTP6652 (Rec: 09/01/18 01:48 RGC6612 ICU-C25) Document 09/01/18 00:00 MEM7916 (Rec: 09/01/18 02:30 ZXD8244 ICU-C25) Co-Sign 09/01/18 00:00 QGQ9733 Document 09/01/18 01:00 JAQ0353 (Rec: 09/01/18 02:57 QCO7572 ICU-C25) Document 09/01/18 02:00 MLO0047 (Rec: 09/01/18 03:00 FAA0557 ICU-C25) Document 09/01/18 03:00 BZU4645 (Rec: 09/01/18 03:07 FRV8722 ICU-C25) Document 09/01/18 04:00 GMZ8973 (Rec: 09/01/18 04:17 DXQ8537 ICU-C25) Document 09/01/18 05:00 TOR7455 (Rec: 09/01/18 05:13 ILL5269 ICU-C25) Document 09/01/18 06:00 PUD0043 (Rec: 09/01/18 06:45 IDG3156 ICU-C25) Document 09/01/18 07:00 VTM4520 (Rec: 09/01/18 07:09 JGO2549 ICU-M23) Document 09/01/18 08:00 BOQ1081 (Rec: 09/01/18 09:02 QQI4094 ICU-M23) Document 09/01/18 09:00 YQQ3123 (Rec: 09/01/18 09:02 QVE9680 ICU-M23) Document 09/01/18 10:06 VKZ2425 (Rec: 09/01/18 10:06 PNH7308 ICU-M23) Document 09/01/18 11:00 QUI7726 (Rec: 09/01/18 11:06 RST6823 ICU-M23) Document 09/01/18 12:00 GON6303 (Rec: 09/01/18 12:26 BZR4067 ICU-M23) Document 09/01/18 13:00 QFR5714 (Rec: 09/01/18 14:29 RPI5058 ICU-M23) Document 09/01/18 14:00 TTH9002 (Rec: 09/01/18 14:29 PXO8165 ICU-M23) Document 09/01/18 14:48 ZOO9237 (Rec: 09/01/18 14:50 VNZ9746 ICU-M23) Document 09/01/18 15:00 HQF9088 (Rec: 09/01/18 16:04 QAT8271 ICU-M23) Document 09/01/18 16:00 RLJ7889 (Rec: 09/01/18 16:04 VOI1184 ICU-M23) Document 09/01/18 17:05 HDX4863 (Rec: 09/01/18 17:05 POE6108 ICU-M23) Document 09/01/18 18:00 YZB9782 (Rec: 09/01/18 18:04 EZH8286 ICU-M23) Document 09/01/18 20:00 JPZ9618 (Rec: 09/01/18 20:25 XGD9699 ICU-M23) Document 09/01/18 21:00 XCJ7198 (Rec: 09/01/18 21:04 UBM2628 ICU-M23) Document 09/01/18 22:00 YLH0406 (Rec: 09/01/18 22:13 DCD5988 ICU-M23) Document 09/01/18 23:00 QFX6775 (Rec: 09/01/18 23:20 LZU5729 ICU-M23) Document 09/02/18 00:00 KLA6744 (Rec: 09/02/18 00:08 KZL2836 ICU-M23) Document 09/02/18 01:00 YSP7719 (Rec: 09/02/18 01:04 WCM2528 ICU-M23) Document 09/02/18 02:00 QPX1640 (Rec: 09/02/18 02:20 CKI2999 ICU-M23) Document 09/02/18 03:00 ZKP5114 (Rec: 09/02/18 03:03 OCM6559 ICU-M23) Document 09/02/18 04:00 HBK1074 (Rec: 09/02/18 04:14 HVZ5182 ICU-M23) Document 09/02/18 05:00 LXH7093 (Rec: 09/02/18 05:01 BZO8906 ICU-M23) Document 09/02/18 05:25 EWW2208 (Rec: 09/02/18 05:26 HAE7632 ICU-M23) Document 09/02/18 05:28 LJX0892 (Rec: 09/02/18 05:29 EJU0705 ICU-M23) Document 09/02/18 06:00 UTS1184 (Rec: 09/02/18 06:09 MYI7367 ICU-M23) Document 09/02/18 07:00 BLQ2567 (Rec: 09/02/18 07:23 SZP8423 ICU-M23) Document 09/02/18 08:00 KQV7626 (Rec: 09/02/18 08:33 TFT5615 ICU-M23) Document 09/02/18 09:00 JMT4014 (Rec: 09/02/18 09:27 LBQ2232 ICU-C06) Document 09/02/18 10:00 OBJ9999 (Rec: 09/02/18 12:05 WEB1085 ICU-M23) Document 09/02/18 11:00 PEV1208 (Rec: 09/02/18 12:05 WWA4061 ICU-M23) Document 09/02/18 12:00 IVA4059 (Rec: 09/02/18 12:05 GMB3808 ICU-M23) Document 09/02/18 13:00 FZO7335 (Rec: 09/02/18 13:16 JNI0074 ICU-M23) Document 09/02/18 14:00 PHI3422 (Rec: 09/02/18 14:04 SYO4060 ICU-M23) Document 09/02/18 15:00 JYK6706 (Rec: 09/02/18 15:30 XQX6086 ICU-C25) Document 09/02/18 16:00 ZXX7847 (Rec: 09/02/18 16:29 AAE8744 ICU-M23) Document 09/02/18 17:00 TRQ8605 (Rec: 09/02/18 17:14 HTL1787 ICU-M23) Document 09/02/18 18:00 XZO3559 (Rec: 09/02/18 18:07 XNO9292 ICU-M23) Document 09/02/18 20:00 RRS2416 (Rec: 09/02/18 20:00 WUU7892 ICU-M23) Document 09/02/18 21:00 WUW2551 (Rec: 09/02/18 21:05 SQM5287 ICU-M23) Document 09/02/18 22:00 GYJ2549 (Rec: 09/02/18 22:07 OPG4280 ICU-M23) Document 09/02/18 23:00 JBH0061 (Rec: 09/02/18 23:39 TIY6855 ICU-M23) Document 09/03/18 00:00 QAJ0839 (Rec: 09/03/18 01:04 ILW8222 ICU-M23) Document 09/03/18 01:00 QUW4857 (Rec: 09/03/18 01:06 QWI0073 ICU-M23) Document 09/03/18 02:00 YGE8681 (Rec: 09/03/18 03:22 OYX5769 ICU-M23) Document 09/03/18 03:00 CMG3342 (Rec: 09/03/18 03:22 IED2980 ICU-M23) Document 09/03/18 04:00 PTU0049 (Rec: 09/03/18 04:26 ETW7978 ICU-M23) Document 09/03/18 05:00 EYV1421 (Rec: 09/03/18 05:00 ZKJ0012 ICU-M23) Document 09/03/18 06:00 XGR7096 (Rec: 09/03/18 06:59 HTG9400 ICU-M23) Document 09/03/18 07:00 ILZ4270 (Rec: 09/03/18 07:26 MEZ3230 ICU-C06) Document 09/03/18 07:46 MKM0568 (Rec: 09/03/18 07:46 AHQ2075 ICU-C06) Document 09/03/18 08:00 RSR6524 (Rec: 09/03/18 08:10 JRO6710 ICU-C06) Document 09/03/18 10:00 MQJ7611 (Rec: 09/03/18 11:00 ZRO4551 ICU-M23) Document 09/03/18 11:00 VRB2952 (Rec: 09/03/18 11:50 TWU9711 ICU-C06) Document 09/03/18 13:00 DDF9974 (Rec: 09/03/18 14:04 MJT7459 ICU-C06) Document 09/03/18 14:00 UVB6371 (Rec: 09/03/18 15:51 EAQ2634 ICU-C06) Document 09/03/18 15:00 QTC3655 (Rec: 09/03/18 15:53 XJR9809 ICU-C06) Document 09/03/18 20:28 EZW7183 (Rec: 09/03/18 20:28 RKJ6978 ICU-M23) Document 09/03/18 23:58 TJX8673 (Rec: 09/03/18 23:58 SSX7246 ICU-M23) Document 09/04/18 02:00 WZY1536 (Rec: 09/04/18 02:09 ZAT8204 ICU-M23) Document 09/04/18 03:00 BXS5124 (Rec: 09/04/18 03:13 UZF7024 ICU-C06) Document 09/04/18 04:00 TFM8025 (Rec: 09/04/18 04:00 BWC2930 ICU-M23) Document 09/04/18 05:00 OKM2749 (Rec: 09/04/18 05:13 MYR4576 ICU-M23) Document 09/04/18 06:00 EMY8889 (Rec: 09/04/18 06:04 ULW4856 ICU-M23) Document 09/04/18 06:11 YNH5818 (Rec: 09/04/18 06:11 ZJC6490 ICU-M23) Document 09/04/18 08:00 JJA7688 (Rec: 09/04/18 09:23 ZOB0024 ICU-C12) Document 09/04/18 09:00 FVZ5737 (Rec: 09/04/18 09:23 VXI6688 ICU-C12) Document 09/04/18 10:00 NDR6142 (Rec: 09/04/18 10:16 IFV3565 ICU-M23) Document 09/04/18 11:00 TYF0365 (Rec: 09/04/18 11:45 FFB1790 ICU-M23) Document 09/04/18 12:00 UFZ5671 (Rec: 09/04/18 12:47 FPL8980 ICU-M23) Document 09/04/18 13:00 VXJ9716 (Rec: 09/04/18 13:01 ODK2127 ICU-C12) Document 09/04/18 14:29 TFP2907 (Rec: 09/04/18 14:29 IUK8422 ICU-C12) Document 09/04/18 15:00 XPL8869 (Rec: 09/04/18 16:31 FWJ8339 ICU-C12) Document 09/04/18 16:00 GHS0723 (Rec: 09/04/18 17:00 ZSP8631 ICU-C12) Co-Sign 09/04/18 16:00 JPE3839 Document 09/04/18 17:00 FVI1374 (Rec: 09/04/18 17:23 CHX9925 ICU-C12) Document 09/04/18 18:00 CQE3049 (Rec: 09/04/18 18:32 IVO7034 ICU-C12) Document 09/04/18 19:37 MGM2089 (Rec: 09/04/18 19:37 JSC9365 ICU-M23) Document 09/04/18 21:00 DQI4358 (Rec: 09/04/18 21:11 BCU2878 ICU-M23) Document 09/04/18 22:00 GUT6820 (Rec: 09/04/18 22:44 VUK8858 ICU-M23) Document 09/04/18 23:00 DNK9536 (Rec: 09/04/18 23:12 LXQ2134 ICU-C06) Document 09/05/18 00:00 EVF4368 (Rec: 09/05/18 01:12 ITJ7378 ICU-M23) Document 09/05/18 01:00 YWI3770 (Rec: 09/05/18 01:12 GOH9440 ICU-M23) Document 09/05/18 01:49 FGQ9445 (Rec: 09/05/18 01:49 DVG0372 ICU-M23) Document 09/05/18 02:00 INY0761 (Rec: 09/05/18 02:05 LRC2198 ICU-M23) Document 09/05/18 03:00 PXU8140 (Rec: 09/05/18 03:10 FNE1022 ICU-M23) Document 09/05/18 04:00 NRI7859 (Rec: 09/05/18 04:22 GCC7561 ICU-C06) Document 09/05/18 05:00 NCM5266 (Rec: 09/05/18 05:18 GNP7441 ICU-M23) Document 09/05/18 06:00 LRI3598 (Rec: 09/05/18 06:08 WBY8852 ICU-C06) Document 09/05/18 06:55 KSL2941 (Rec: 09/05/18 06:55 FDM5444 ICU-C06) Document 09/05/18 07:00 EUG0926 (Rec: 09/05/18 07:22 ALR3224 ICU-C12) Document 09/05/18 08:00 YHE3050 (Rec: 09/05/18 09:09 ZUN3787 ICU-C12) Document 09/05/18 09:00 IAY3669 (Rec: 09/05/18 09:16 KNT5282 ICU-C12) Document 09/05/18 10:00 HEQ8004 (Rec: 09/05/18 10:04 GQT8065 ICU-M23) Document 09/05/18 11:00 BRW4301 (Rec: 09/05/18 11:45 HZK5787 ICU-C12) Document 09/05/18 12:00 YMR8468 (Rec: 09/05/18 12:48 MYV4840 ICU-C12) Document 09/05/18 13:00 LUT8067 (Rec: 09/05/18 13:16 FOD8569 ICU-C12) Document 09/05/18 14:00 TPK8797 (Rec: 09/05/18 14:14 XLI0604 ICU-C12) Document 09/05/18 15:00 IEI9691 (Rec: 09/05/18 15:43 WLV8943 ICU-C12) Document 09/05/18 16:00 ZEU3765 (Rec: 09/05/18 16:37 XZY5913 ICU-C12) Document 09/05/18 17:00 FRA5026 (Rec: 09/05/18 17:58 LDD5333 ICU-C12) Document 09/05/18 18:00 FQQ8931 (Rec: 09/05/18 18:21 GIO3332 ICU-M23) Document 09/05/18 19:48 YDQ7746 (Rec: 09/05/18 19:48 TSN2364 ICU-M23) Document 09/05/18 19:54 NNU3020 (Rec: 09/05/18 20:06 VIG4420 ICU-C25) Document 09/05/18 21:00 TPI5015 (Rec: 09/05/18 21:20 XIY0127 ICU-M23) Document 09/05/18 21:52 RZH7843 (Rec: 09/05/18 21:52 PFN7559 ICU-M23) Document 09/05/18 23:00 UTA0320 (Rec: 09/05/18 23:08 HLQ3964 ICU-C12) Document 09/05/18 23:48 WRH3845 (Rec: 09/05/18 23:48 RNT4827 ICU-M23) Document 09/06/18 01:00 RAO7243 (Rec: 09/06/18 01:04 FPN9067 ICU-C12) Document 09/06/18 02:00 HYM5665 (Rec: 09/06/18 02:09 OKW1591 ICU-C12) Document 09/06/18 04:00 CCE1356 (Rec: 09/06/18 04:17 BRO2143 ICU-M23) Document 09/06/18 05:00 TIB6820 (Rec: 09/06/18 05:06 TWG9393 ICU-M23) Document 09/06/18 05:07 KEA4493 (Rec: 09/06/18 05:07 NBQ1114 ICU-M23) Document 09/06/18 06:35 SIW1981 (Rec: 09/06/18 06:35 FVP3822 ICU-M23) Document 09/06/18 07:00 RAN3195 (Rec: 09/06/18 09:01 JAX3772 ICU-M23) Document 09/06/18 08:00 RSM6007 (Rec: 09/06/18 09:01 ADX4476 ICU-M23) Document 09/06/18 09:00 DOF1756 (Rec: 09/06/18 09:01 WXB6388 ICU-M23) Document 09/06/18 10:00 SFB5126 (Rec: 09/06/18 10:16 KPN6700 ICU-C12) Document 09/06/18 11:00 BDA6655 (Rec: 09/06/18 11:48 LIC2171 ICU-C12) Document 09/06/18 12:00 QHM0953 (Rec: 09/06/18 12:20 DEB0943 ICU-C12) Document 09/06/18 13:00 EWW1820 (Rec: 09/06/18 13:50 HRU7894 ICU-C11) Document 09/06/18 13:00 FDC8342 (Rec: 09/06/18 13:57 WWU8956 ICU-L03) Document 09/06/18 15:00 USO6931 (Rec: 09/06/18 15:13 PQT5007 ICU-M23) Document 09/06/18 16:00 TYM2488 (Rec: 09/06/18 16:40 EGQ7008 ICU-C12) Document 09/06/18 17:14 YLN4216 (Rec: 09/06/18 17:14 RJT7106 ICU-C12) Document 09/06/18 18:00 OFQ7279 (Rec: 09/06/18 18:01 QZB0637 ICU-M23) Document 09/06/18 18:27 WPQ2271 (Rec: 09/06/18 18:27 FRV4188 ICU-M23) Document 09/06/18 18:27 TAT6770 (Rec: 09/06/18 18:28 BYF9514 ICU-M23) Document 09/06/18 18:29 SUY1280 (Rec: 09/06/18 18:30 XNH2539 ICU-M23) Document 09/06/18 19:00 MSK0446 (Rec: 09/06/18 19:21 FNW6572 ICU-M23) Document 09/06/18 22:00 YPH4718 (Rec: 09/06/18 22:33 HAF7851 ICU-M23) Document 09/06/18 23:00 CMW5273 (Rec: 09/06/18 23:46 VTM9938 ICU-M23) Document 09/06/18 23:55 IYV1139 (Rec: 09/06/18 23:56 HFT2318 ICU-M23) Document 09/07/18 00:58 EMW3885 (Rec: 09/07/18 00:58 UUZ3709 ICU-M23) Document 09/07/18 02:00 FCE9261 (Rec: 09/07/18 02:58 EVG1633 ICU-M23) Document 09/07/18 02:59 AMQ6750 (Rec: 09/07/18 02:59 YTR1964 ICU-M23) Document 09/07/18 04:00 KUQ9633 (Rec: 09/07/18 05:04 XAB6497 ICU-C12) Document 09/07/18 05:00 FBF6370 (Rec: 09/07/18 05:05 FEP8807 ICU-C12) Document 09/07/18 06:00 IGF5547 (Rec: 09/07/18 06:22 GGU6907 ICU-M23) Document 09/07/18 06:59 VDD1296 (Rec: 09/07/18 06:59 LGJ4490 ICU-M23) Document 09/07/18 07:00 UIB3845 (Rec: 09/07/18 07:01 PAT2966 ICU-M23) Document 09/07/18 08:00 CGQ5540 (Rec: 09/07/18 08:14 XAD0266 ICU-M23) Document 09/07/18 09:00 QAO6277 (Rec: 09/07/18 09:38 QTJ5571 ICU-M23) Document 09/07/18 10:00 RXW0764 (Rec: 09/07/18 11:01 HAT8818 ICU-M23) Document 09/07/18 11:00 BBL1521 (Rec: 09/07/18 11:01 OOQ0835 ICU-M23) Document 09/07/18 13:00 FGQ5608 (Rec: 09/07/18 13:15 VGK3399 ICU-M23) Document 09/07/18 14:00 JTG7541 (Rec: 09/07/18 16:39 WEB4417 ICU-M23) Document 09/07/18 15:00 IKT1680 (Rec: 09/07/18 16:39 CVD4674 ICU-M23) Document 09/07/18 16:00 KSW5971 (Rec: 09/07/18 16:39 YFF8975 ICU-M23) Document 09/07/18 16:52 TYF8579 (Rec: 09/07/18 16:52 YZD8155 ICU-M23) Document 09/07/18 17:00 TTH4740 (Rec: 09/07/18 18:18 SFL4402 ICU-M23) Document 09/07/18 18:00 DBQ9215 (Rec: 09/07/18 18:18 GBI9040 ICU-M23) Document 09/07/18 18:19 NZS1180 (Rec: 09/07/18 18:19 TAY4981 ICU-M23) Document 09/07/18 18:23 AOA0861 (Rec: 09/07/18 18:23 RRI3465 ICU-M23) Document 09/07/18 19:00 ORD7701 (Rec: 09/07/18 19:49 YQF8150 ICU-M23) Document 09/07/18 19:50 KKR9487 (Rec: 09/07/18 20:03 JJW1513 ICU-M23) Document 09/07/18 21:00 RIM0534 (Rec: 09/07/18 21:18 UHS8904 ICU-M23) Document 09/07/18 21:54 UFN7130 (Rec: 09/07/18 21:54 KBQ9086 ICU-M23) Document 09/07/18 23:00 KPK6149 (Rec: 09/07/18 23:26 OPD2184 ICU-M23) Document 09/08/18 00:00 VNI5069 (Rec: 09/08/18 01:06 IOZ0039 ICU-C12) Document 09/08/18 01:00 SPL8922 (Rec: 09/08/18 01:07 XVJ4552 ICU-C12) Document 09/08/18 02:00 NJJ3867 (Rec: 09/08/18 02:27 DXX0892 ICU-M23) Document 09/08/18 03:00 ZCM8110 (Rec: 09/08/18 03:06 YSJ4980 ICU-C12) Document 09/08/18 04:00 HJN2346 (Rec: 09/08/18 04:58 APB7000 ICU-M23) Document 09/08/18 04:59 BRC4044 (Rec: 09/08/18 04:59 OXE0621 ICU-M23) Document 09/08/18 05:08 NKC0326 (Rec: 09/08/18 05:08 CJP4605 ICU-M23) Document 09/08/18 05:47 IFM0765 (Rec: 09/08/18 05:50 MGB0365 ICU-M23) Document 09/08/18 07:00 MBQ9390 (Rec: 09/08/18 09:42 JTL3519 ICU-C06) Document 09/08/18 08:00 SJC2486 (Rec: 09/08/18 10:46 YQO8744 ICU-C06) Document 09/08/18 09:00 RBO7273 (Rec: 09/08/18 10:54 VHD3996 ICU-C06) Document 09/08/18 10:00 ZDB2538 (Rec: 09/08/18 10:54 FGV0517 ICU-C06) Document 09/08/18 10:54 KFC4668 (Rec: 09/08/18 10:54 WCH3050 ICU-C06) Document 09/08/18 12:00 SDU2829 (Rec: 09/08/18 13:24 HKY6629 ICU-C06) Document 09/08/18 13:00 QNM6481 (Rec: 09/08/18 13:24 LAT4322 ICU-C06) Document 09/08/18 17:00 KRM5966 (Rec: 09/08/18 17:57 QHJ4250 ICU-C12) Document 09/08/18 18:00 UYF2410 (Rec: 09/08/18 18:09 TVR7262 ICU-C12) Document 09/08/18 19:00 FZG6064 (Rec: 09/08/18 19:10 XLL7790 ICU-M23) Document 09/08/18 20:00 QBP5190 (Rec: 09/08/18 20:20 AGM0865 ICU-M23) Document 09/08/18 20:40 FXB8747 (Rec: 09/08/18 20:41 ZNB2243 ICU-C25) Document 09/08/18 20:52 OXO1009 (Rec: 09/08/18 20:52 ENA8442 ICU-C25) Document 09/08/18 21:41 OTD2792 (Rec: 09/08/18 21:43 ZIT4176 ICU-M23) Document 09/08/18 23:00 PIQ6087 (Rec: 09/08/18 23:37 UES9138 ICU-C25) Document 09/09/18 00:00 VMZ0311 (Rec: 09/09/18 00:14 PZR1294 ICU-M23) Document 09/09/18 01:00 GBU9813 (Rec: 09/09/18 01:14 CKL2145 ICU-C25) Document 09/09/18 01:58 APL7591 (Rec: 09/09/18 01:59 BIE2886 ICU-C25) Document 09/09/18 03:00 NBN3752 (Rec: 09/09/18 03:18 MMF1218 ICU-C25) Document 09/09/18 04:00 UMC5834 (Rec: 09/09/18 04:25 FQU3165 ICU-C25) Document 09/09/18 05:00 JRF4399 (Rec: 09/09/18 05:49 NZY7403 ICU-C25) Document 09/09/18 06:00 JRX4814 (Rec: 09/09/18 06:03 FZS2365 ICU-M23) Document 09/09/18 07:00 IIE2509 (Rec: 09/09/18 08:57 JDG8594 ICU-C15) Document 09/09/18 08:00 VTV4539 (Rec: 09/09/18 09:06 EUD4777 ICU-C15) Document 09/09/18 08:00 LLM5020 (Rec: 09/09/18 18:34 ASD5032 ICU-M23) Document 09/09/18 09:00 WNR2045 (Rec: 09/09/18 09:06 WAA0895 ICU-C15) Document 09/09/18 10:00 RVA6383 (Rec: 09/09/18 13:20 QXQ3895 ICU-C15) Document 09/09/18 11:00 HGM2635 (Rec: 09/09/18 13:20 LNV2569 ICU-C15) Document 09/09/18 12:00 IST2468 (Rec: 09/09/18 13:20 ALI9411 ICU-C15) Document 09/09/18 13:00 BBZ9211 (Rec: 09/09/18 13:20 CZD2058 ICU-C15) Document 09/09/18 14:49 GYL0996 (Rec: 09/09/18 14:49 MBA9781 ICU-M23) Document 09/09/18 15:00 FKS6218 (Rec: 09/09/18 16:13 RSW1190 ICU-M23) Document 09/09/18 16:00 LTA8068 (Rec: 09/09/18 16:13 JDM3306 ICU-M23) Document 09/09/18 17:00 PRS4638 (Rec: 09/09/18 18:32 OCO5050 ICU-M23) Document 09/09/18 18:00 SRL4995 (Rec: 09/09/18 18:32 RLE4072 ICU-M23) Document 09/09/18 19:00 BUD7363 (Rec: 09/09/18 19:51 CSD2795 ICU-C14) Document 09/09/18 19:51 SUU9646 (Rec: 09/09/18 19:53 JLL1249 ICU-C14) Document 09/09/18 21:00 HBV7830 (Rec: 09/09/18 21:31 MNS0766 ICU-M23) Document 09/09/18 21:55 OPG9755 (Rec: 09/09/18 21:57 BTP7056 ICU-C14) Document 09/09/18 23:00 FAX6120 (Rec: 09/09/18 23:49 URH2959 ICU-C14) Document 09/09/18 23:50 YMO3223 (Rec: 09/09/18 23:53 HQG6342 ICU-C14) Document 09/10/18 00:55 EIA4669 (Rec: 09/10/18 00:57 KFP4669 ICU-C14) Document 09/10/18 02:00 VXU1642 (Rec: 09/10/18 02:03 WSZ6902 ICU-C14) Document 09/10/18 02:49 TIN1189 (Rec: 09/10/18 02:50 HYW2408 ICU-C14) Document 09/10/18 03:59 HWR1544 (Rec: 09/10/18 04:00 CEQ4297 ICU-M23) Document 09/10/18 05:00 SDV4313 (Rec: 09/10/18 05:24 CYD5876 ICU-M23) Document 09/10/18 05:58 ZWK6191 (Rec: 09/10/18 05:59 ZAX5692 ICU-C14) Document 09/10/18 07:00 SDT5314 (Rec: 09/10/18 07:42 PLY6963 ICU-C12) Document 09/10/18 08:00 WAE3729 (Rec: 09/10/18 08:55 LEW0668 ICU-C12) Document 09/10/18 09:00 WSS8072 (Rec: 09/10/18 09:49 BCY4472 ICU-C12) Document 09/10/18 09:59 SRZ2765 (Rec: 09/10/18 10:00 MLZ7607 ICU-C12) Document 09/10/18 11:00 KLR3723 (Rec: 09/10/18 11:12 WQU7754 ICU-C12) Document 09/10/18 12:00 QVL8257 (Rec: 09/10/18 12:57 OUC6489 ICU-C12) Document 09/10/18 13:00 HRI0973 (Rec: 09/10/18 13:37 GON8115 ICU-C12) Document 09/10/18 14:00 NAM9398 (Rec: 09/10/18 16:30 PUN7178 ICU-C12) Document 09/10/18 15:00 YKZ9806 (Rec: 09/10/18 16:35 JRZ0612 ICU-C12) Document 09/10/18 16:00 YFN9641 (Rec: 09/10/18 16:51 OHU7148 ICU-C12) Document 09/10/18 17:00 LOW1408 (Rec: 09/10/18 17:06 YOJ1031 ICU-C12) Document 09/10/18 18:00 OSR9727 (Rec: 09/10/18 18:19 RWB2202 ICU-M23) Document 09/10/18 18:30 AGV8707 (Rec: 09/10/18 19:05 SFT1587 ICU-C12) Document 09/10/18 19:00 VYZ3775 (Rec: 09/10/18 21:56 UPD1700 ICU-C06) Document 09/10/18 20:00 IKQ2709 (Rec: 09/10/18 21:56 HSE3197 ICU-C06) Document 09/10/18 21:00 CNJ5565 (Rec: 09/10/18 21:56 FWB2077 ICU-C06) Document 09/10/18 23:00 MQW2724 (Rec: 09/10/18 23:06 ZBO3032 ICU-M23) Document 09/11/18 00:00 JJM2674 (Rec: 09/11/18 00:15 SUG6518 ICU-C06) Document 09/11/18 01:00 SFC4667 (Rec: 09/11/18 01:00 MJM3791 ICU-M23) Document 09/11/18 02:00 JQB5228 (Rec: 09/11/18 02:35 YGP1786 ICU-C06) Document 09/11/18 02:56 XFN2075 (Rec: 09/11/18 02:57 KAH8231 ICU-M23) Document 09/11/18 04:00 NAK0461 (Rec: 09/11/18 04:13 ZHC0157 ICU-C06) Document 09/11/18 05:00 VYH9621 (Rec: 09/11/18 05:07 ISF1765 ICU-M23) Document 09/11/18 06:00 BSR7378 (Rec: 09/11/18 06:13 VYP2876 ICU-C06) Document 09/11/18 06:22 FLI6015 (Rec: 09/11/18 06:22 NAH6135 ICU-M23) Document 09/11/18 08:00 YWA9944 (Rec: 09/11/18 09:10 DCG9601 ICU-C12) Document 09/11/18 09:00 OQE1321 (Rec: 09/11/18 10:51 LQP1437 ICU-C12) Document 09/11/18 10:00 MGI7560 (Rec: 09/11/18 10:52 KRX6443 ICU-C12) Document 09/11/18 10:52 RZL3208 (Rec: 09/11/18 10:52 IQS6187 ICU-C12) Document 09/11/18 11:45 GJS8431 (Rec: 09/11/18 11:45 JZC3315 ICU-C12) Document 09/11/18 13:00 LPM3238 (Rec: 09/11/18 14:13 PXG2708 ICU-C12) Document 09/11/18 14:00 QXN9571 (Rec: 09/11/18 14:18 ISL1716 ICU-C12) Document 09/11/18 15:47 DHO2956 (Rec: 09/11/18 15:59 CWO5938 ICU-C12) Document 09/11/18 17:00 CNW6309 (Rec: 09/11/18 17:22 PSZ4821 ICU-C12) Document 09/11/18 17:39 MIH8912 (Rec: 09/11/18 17:39 OCG8082 ICU-C12) Document 09/11/18 18:00 VFV4478 (Rec: 09/11/18 18:06 XJQ4801 ICU-C12) Document 09/11/18 19:00 PUK7042 (Rec: 09/11/18 19:20 NWJ5263 ICU-C06) Document 09/11/18 20:00 SCB2553 (Rec: 09/11/18 20:22 XUH7666 ICU-C06) Document 09/11/18 21:00 LPU2047 (Rec: 09/11/18 21:10 WAE0273 ICU-C06) Document 09/11/18 22:00 GFY6788 (Rec: 09/11/18 22:36 HTD8962 ICU-M23) Document 09/11/18 22:57 WBQ1066 (Rec: 09/11/18 22:57 EAC6200 ICU-C06) Document 09/12/18 00:00 YNR6955 (Rec: 09/12/18 00:04 ERL8875 ICU-C06) Document 09/12/18 00:59 DFG8252 (Rec: 09/12/18 01:01 GIM8762 ICU-C06) Document 09/12/18 02:00 JMI7016 (Rec: 09/12/18 02:05 HAI2672 ICU-C06) Document 09/12/18 02:58 SEQ9440 (Rec: 09/12/18 02:58 VSN0032 ICU-C06) Document 09/12/18 04:00 HBQ8377 (Rec: 09/12/18 04:09 VBZ4495 ICU-C06) Document 09/12/18 05:00 EMI2814 (Rec: 09/12/18 05:20 BMZ8587 ICU-M23) Document 09/12/18 05:58 DMD8187 (Rec: 09/12/18 05:59 JSJ0204 ICU-C06) Document 09/12/18 07:00 HNH9012 (Rec: 09/12/18 07:22 SVM4522 ICU-C12) Document 09/12/18 08:00 ACY4829 (Rec: 09/12/18 08:27 FSH0382 ICU-C12) Document 09/12/18 09:00 CFL3607 (Rec: 09/12/18 09:23 VWH0692 ICU-M23) Document 09/12/18 10:00 ZHL7318 (Rec: 09/12/18 10:05 HBC8551 ICU-M23) Document 09/12/18 11:00 VVY1351 (Rec: 09/12/18 11:21 QNF7405 ICU-C12) Document 09/12/18 12:00 CUK3276 (Rec: 09/12/18 12:41 XUB9384 ICU-C12) Document 09/12/18 13:00 PYD5125 (Rec: 09/12/18 13:06 FCR4366 ICU-C12) Document 09/12/18 14:00 VDP4958 (Rec: 09/12/18 14:00 XFL6176 ICU-C12) Document 09/12/18 14:26 EVC6872 (Rec: 09/12/18 14:26 JGZ9828 ICU-C12) Document 09/12/18 15:00 JYA7736 (Rec: 09/12/18 15:13 VJX6516 ICU-C12) Document 09/12/18 16:00 HEJ1344 (Rec: 09/12/18 17:20 EQS7705 ICU-C12) Document 09/12/18 17:00 APB3678 (Rec: 09/12/18 17:20 WBY9043 ICU-C12) Document 09/12/18 18:00 EHE6148 (Rec: 09/12/18 18:16 VXC5792 ICU-M23) Document 09/12/18 19:00 VXO0405 (Rec: 09/12/18 19:03 HFC9510 ICU-C16) Document 09/12/18 19:49 MWH7024 (Rec: 09/12/18 19:50 VHR7997 ICU-M23) Document 09/12/18 21:00 FDJ5386 (Rec: 09/12/18 21:41 WMR9335 ICU-C16) Document 09/12/18 21:53 XHW7503 (Rec: 09/12/18 21:53 ILW0645 ICU-C16) Document 09/12/18 23:00 LLV4144 (Rec: 09/12/18 23:18 MQK5061 ICU-C16) Document 09/13/18 00:00 MOK0617 (Rec: 09/13/18 00:07 OSC3596 ICU-C16) Document 09/13/18 00:58 IXQ6182 (Rec: 09/13/18 00:59 AFW7989 ICU-C16) Document 09/13/18 01:51 XGS0985 (Rec: 09/13/18 01:53 NEN5706 ICU-C16) Document 09/13/18 02:58 FKU7127 (Rec: 09/13/18 02:59 ZCK4624 ICU-C16) Document 09/13/18 03:58 GIO8339 (Rec: 09/13/18 03:59 JNK1316 ICU-M23) Document 09/13/18 04:56 SNY4992 (Rec: 09/13/18 04:57 ZNL7075 ICU-C16) Document 09/13/18 05:46 IAV7906 (Rec: 09/13/18 05:47 RBQ5004 ICU-M23) Document 09/13/18 06:45 MWP8255 (Rec: 09/13/18 06:45 MBL1896 ICU-M23) Document 09/13/18 07:42 [id number] (Rec: 09/13/18 07:42 RLP4592 ICU-C12) Document 09/13/18 09:00 DDH6649 (Rec: 09/13/18 09:08 IZW0524 ICU-C12) Document 09/13/18 10:00 LSW1896 (Rec: 09/13/18 10:08 LKQ6866 ICU-C12) Document 09/13/18 11:00 TSN5725 (Rec: 09/13/18 11:04 VMC4380 ICU-C12) Document 09/13/18 12:00 XKW3762 (Rec: 09/13/18 12:33 ZZQ3565 ICU-C12) Document 09/13/18 13:00 LZC2416 (Rec: 09/13/18 13:34 TLH5483 ICU-C12) Document 09/13/18 14:00 KGG3183 (Rec: 09/13/18 15:20 UGN8799 ICU-M23) Document 09/13/18 15:00 BBD3223 (Rec: 09/13/18 15:21 AIU1133 ICU-M23) Document 09/13/18 16:00 KUL1439 (Rec: 09/13/18 17:42 OWG2633 ICU-C12) Document 09/13/18 17:00 IHO9729 (Rec: 09/13/18 17:44 PDA4580 ICU-C12) Document 09/13/18 18:00 XAR1079 (Rec: 09/13/18 18:05 FAZ5495 ICU-C12) Document 09/13/18 20:56 QDV0040 (Rec: 09/13/18 20:56 SZH1585 ICU-C06) Document 09/13/18 22:00 MVQ6547 (Rec: 09/13/18 22:37 MRS8152 ICU-C06) Document 09/13/18 23:00 QFG9307 (Rec: 09/13/18 23:06 MIW5370 ICU-C06) Document 09/13/18 23:47 YRX2161 (Rec: 09/13/18 23:47 EKO5962 ICU-C06) Document 09/14/18 01:00 YEA1318 (Rec: 09/14/18 01:32 TPL2184 ICU-C06) Document 09/14/18 02:00 OMU5639 (Rec: 09/14/18 02:17 AIL9407 ICU-C06) Document 09/14/18 03:00 IUQ3497 (Rec: 09/14/18 03:11 LUX0741 ICU-C06) Document 09/14/18 04:00 BYR6001 (Rec: 09/14/18 04:05 MOX0755 ICU-C06) Document 09/14/18 05:55 LAD2058 (Rec: 09/14/18 05:56 TXP3727 ICU-M23) Document 09/14/18 06:47 WRF2745 (Rec: 09/14/18 06:47 JQP7143 ICU-C06) Document 09/14/18 07:53 OHB1137 (Rec: 09/14/18 07:53 HHQ4838 ICU-C06) Document 09/14/18 09:00 GGZ8117 (Rec: 09/14/18 09:02 VTJ3331 ICU-C06) Document 09/14/18 11:00 UHG2509 (Rec: 09/14/18 11:34 KBC1113 ICU-C06) Document 09/14/18 12:00 ZFS9774 (Rec: 09/14/18 12:02 OWX5396 ICU-C06) Document 09/14/18 12:56 LAV5558 (Rec: 09/14/18 12:56 MOF4755 ICU-C06) Document 09/14/18 14:28 EKA5908 (Rec: 09/14/18 14:29 HXP5912 ICU-M23) Document 09/14/18 18:00 DKR2441 (Rec: 09/14/18 18:06 VFQ0507 ICU-M23) Document 09/14/18 19:00 LKS4547 (Rec: 09/14/18 19:19 XLQ7890 ICU-M23) Document 09/14/18 21:00 NIL7656 (Rec: 09/14/18 21:07 TXN0609 ICU-M23) Document 09/14/18 23:00 FPT9844 (Rec: 09/15/18 00:10 DSM1986 ICU-C07) Document 09/15/18 00:00 MEK0595 (Rec: 09/15/18 00:16 CXF3248 ICU-C07) Document 09/15/18 01:00 EOO4898 (Rec: 09/15/18 01:19 XZY8311 ICU-C07) Document 09/15/18 02:00 PPY5277 (Rec: 09/15/18 02:08 GUA4424 ICU-C07) Document 09/15/18 03:00 OBC0776 (Rec: 09/15/18 03:06 PKQ4379 ICU-C07) Document 09/15/18 03:48 RSA9195 (Rec: 09/15/18 03:51 ZLA5510 ICU-C07) Document 09/15/18 05:00 IPK0889 (Rec: 09/15/18 05:12 FTE4964 ICU-C07) Document 09/15/18 06:00 OVB7586 (Rec: 09/15/18 06:00 JYO8886 ICU-C07) Document 09/15/18 06:00 ZLD5761 (Rec: 09/15/18 06:29 KEG4477 ICU-C07) Document 09/15/18 08:00 RPB4093 (Rec: 09/15/18 08:00 JXS5954 ICU-M23) Document 09/15/18 09:00 TWN0279 (Rec: 09/15/18 09:26 PNA9712 ICU-C12) Document 09/15/18 10:57 JIT4823 (Rec: 09/15/18 10:57 YXG6434 ICU-M23) Document 09/15/18 12:00 BGI0733 (Rec: 09/15/18 12:44 OCV5385 ICU-C25) Document 09/15/18 12:58 ION0058 (Rec: 09/15/18 12:59 DNE9520 ICU-C25) Document 09/15/18 14:00 AAG4103 (Rec: 09/15/18 14:27 ZFO9966 ICU-L03) Document 09/15/18 15:00 AYM3084 (Rec: 09/15/18 15:08 CPX4751 ICU-L03) Document 09/15/18 16:00 QBF4472 (Rec: 09/15/18 16:45 SCJ7957 ICU-C18) Document 09/15/18 18:00 VJI1797 (Rec: 09/15/18 18:15 ULM3807 ICU-M24) Document 09/15/18 22:00 ERM0858 (Rec: 09/15/18 22:14 VRF0077 ICU-M24) Document 09/15/18 22:46 GHP5280 (Rec: 09/15/18 22:46 ZHP0143 ICU-C12) Document 09/15/18 23:55 LOV7688 (Rec: 09/15/18 23:55 FAX7705 ICU-C07) Document 09/16/18 03:00 LWO8038 (Rec: 09/16/18 03:07 KRA6589 ICU-C07) Document 09/16/18 04:00 YEU2192 (Rec: 09/16/18 05:18 KDI6350 ICU-C07) Document 09/16/18 05:00 QTI4446 (Rec: 09/16/18 05:27 LAY2876 ICU-C07) Document 09/16/18 06:00 KZL7964 (Rec: 09/16/18 06:11 ODL4554 ICU-M35) Document 09/16/18 07:00 NBD5576 (Rec: 09/16/18 08:28 IAU7627 ICU-C15) Document 09/16/18 08:00 JGQ3522 (Rec: 09/16/18 08:54 BLE7001 ICU-C15) Document 09/16/18 08:59 BGD8494 (Rec: 09/16/18 09:00 XKY9325 ICU-M23) Document 09/16/18 10:00 DKG4111 (Rec: 09/16/18 11:43 RVL7791 ICU-C15) Document 09/16/18 11:00 NYP2983 (Rec: 09/16/18 11:44 EZU9372 ICU-C15) Document 09/16/18 13:00 BRG3351 (Rec: 09/16/18 13:52 CZT1835 ICU-C15) Document 09/16/18 15:00 YDI5049 (Rec: 09/16/18 15:13 ZJL5275 ICU-C15) Document 09/16/18 16:00 YIP7005 (Rec: 09/16/18 17:30 VZC7235 ICU-C15) Document 09/16/18 17:00 PXF9371 (Rec: 09/16/18 17:31 YDO3477 ICU-C15) Document 09/16/18 18:00 VYU9685 (Rec: 09/16/18 18:27 CHS9768 ICU-M23) Document 09/16/18 19:00 MHP9438 (Rec: 09/16/18 22:29 XXV9705 ICU-M29) Document 09/16/18 20:00 ZFM0446 (Rec: 09/16/18 22:43 COI1164 ICU-M29) Document 09/16/18 21:00 QSC0481 (Rec: 09/16/18 22:45 DTC6813 ICU-M29) Document 09/16/18 22:00 CML3675 (Rec: 09/16/18 22:48 XYV8107 ICU-M29) Document 09/16/18 23:00 RGB8932 (Rec: 09/16/18 23:29 YBV3714 ICU-M29) Document 09/17/18 00:00 UDW4471 (Rec: 09/17/18 00:58 ZDI5756 ICU-M29) Document 09/17/18 00:59 KIX8068 (Rec: 09/17/18 01:00 SUL5160 ICU-M29) Document 09/17/18 02:00 PPX6056 (Rec: 09/17/18 02:33 JDH3465 ICU-C06) Document 09/17/18 03:00 WHY4354 (Rec: 09/17/18 03:35 KLS8003 ICU-C06) Document 09/17/18 04:00 EYL8348 (Rec: 09/17/18 04:19 ERG2059 ICU-C06) Document 09/17/18 05:00 MXB3071 (Rec: 09/17/18 08:04 OUR4005 ICU-M25) Document 09/17/18 06:00 ZCJ5482 (Rec: 09/17/18 08:06 MPT4288 ICU-M25) Document 09/17/18 07:00 ECA7582 (Rec: 09/17/18 08:07 QWE2802 ICU-M25) Document 09/17/18 08:00 TAO2776 (Rec: 09/17/18 08:30 WEF6967 ICU-C12) Document 09/17/18 08:58 NIN5262 (Rec: 09/17/18 08:58 ECH1521 ICU-C20) Document 09/17/18 10:00 SCN8699 (Rec: 09/17/18 10:03 ABM4450 ICU-C20) Document 09/17/18 11:00 WXF9745 (Rec: 09/17/18 11:04 EZO6429 ICU-C20) Document 09/17/18 12:00 ZZN2546 (Rec: 09/17/18 12:25 EGS3275 ICU-C06) Document 09/17/18 13:30 KZU0090 (Rec: 09/17/18 13:33 XPI8023 ICU-C12) Document 09/17/18 14:00 DPX5469 (Rec: 09/17/18 14:02 ETS4588 ICU-C20) Document 09/17/18 15:00 XIP2977 (Rec: 09/17/18 15:41 AZL6075 ICU-C12) Document 09/17/18 17:00 PXX6941 (Rec: 09/17/18 17:37 AXP3098 ICU-C12) Document 09/17/18 18:00 NTY8650 (Rec: 09/17/18 18:25 HAK6759 ICU-M23) Document 09/17/18 19:00 BBG5767 (Rec: 09/17/18 19:15 NMA2607 ICU-C07) Document 09/17/18 20:00 UFI7113 (Rec: 09/17/18 20:35 DJK2368 ICU-M23) Document 09/17/18 21:00 RHG4352 (Rec: 09/17/18 21:05 CJQ7238 ICU-C06) Document 09/17/18 22:00 XTQ1770 (Rec: 09/17/18 22:05 WAF5714 ICU-M23) Document 09/17/18 22:57 XAY1785 (Rec: 09/17/18 22:58 HVA8911 ICU-C06) Document 09/17/18 23:54 JZS4659 (Rec: 09/17/18 23:55 YRZ5616 ICU-C06) Document 09/18/18 01:00 WTK4920 (Rec: 09/18/18 01:02 XYK7143 ICU-C06) Document 09/18/18 02:00 ZQY1260 (Rec: 09/18/18 02:24 DZJ5385 ICU-C06) Document 09/18/18 03:00 GQX4905 (Rec: 09/18/18 03:01 NVX5333 ICU-C06) Document 09/18/18 04:00 QSY8640 (Rec: 09/18/18 04:10 YMR1148 ICU-C06) Document 09/18/18 05:00 TWE4953 (Rec: 09/18/18 05:03 QJK9625 ICU-M23) Document 09/18/18 06:00 IIF3856 (Rec: 09/18/18 06:05 TUM0220 ICU-C06) Document 09/18/18 08:00 YHD7977 (Rec: 09/18/18 08:12 CFT6654 ICU-M24) Document 09/18/18 09:00 THL9036 (Rec: 09/18/18 09:40 HHB0742 ICU-M24) Document 09/18/18 10:00 XZQ8369 (Rec: 09/18/18 10:16 GRR1004 ICU-M24) Document 09/18/18 12:35 FAN0900 (Rec: 09/18/18 12:35 FRI2939 ICU-M24) Labs: Laboratory Results - last 24 hr 09/18/18 09/18/18 05:00 05:00 WBC 13.2 H RBC 2.86 L Hgb 7.8 L Hct 24 L MCV 85 MCH 27 MCHC 32 RDW 16 H Plt Count 443 MPV 7.8 Neut % (Auto) 85.4 Lymph % (Auto) 6.7 [place] % (Auto) 7.1 Eos % (Auto) 0.3 Baso % (Auto) 0.5 Absolute Neuts (auto) 11.3 H Absolute Lymphs (auto) 0.9 L Absolute Monos (auto) 0.9 H Absolute Eos (auto) 0.0 Absolute Basos (auto) 0.1 Absolute Nucleated RBC 0.0 Nucleated RBC % 0.1 Sodium 134 L Potassium 4.4 Chloride 100 L Carbon Dioxide 29 Anion Gap 5 BUN 14 Creatinine 0.31 L Est GFR ( Amer) 254.1 Est GFR (Non-Af Amer) 210.0 BUN/Creatinine Ratio 45.2 H Glucose 136 H Calcium 8.1 L Magnesium 2.0 Total Bilirubin 0.30 AST 17 ALT 14 Alkaline Phosphatase 101 Total Protein 5.7 L Albumin 2.5 L Globulin 3.2 Albumin/Globulin Ratio 0.8 L Impression: 73 F with prolonged intubation/mechanical ventilation admitted for perforated sigmoid colon in the setting of diverticultis # Ex-lap x 3 for perforated sigmoid colon diverticulitis # Sepsis/septic shock-resolved # ARF on CRF with trach and tolerating TC when not anxious # Anemia- H/H stable, no S/Sx of acute/active blood loss # Critical illness polyneuromyopathy # HTN # Severe depression Plan: Plan: - add SSRI for depression. continue to talk to patient. patient needs emotional support. --Continue benzo's for anxiety - If does not consent to TC then at least PST - Surgical management as per Surgeon - Patient tolerating tube feeds - needs aggressive PT/OT therapy and will eventually need rehab --continue low dose Metoprolol --PPX --DVT- SQH --placement Critical Care Time: 45
[2018-09-18] MEDS: FLUoxetine CAP* 10 MG PO SCH (14:28)
[2018-09-18] MEDS: Albuterol 2.5 MG/3 ML NEB.SOL* (0.083%) INH PRN (15:04)
[2018-09-19] MEDS: oxyCODONE TAB* 5 MG TAB PO PRN ×3 (01:07→19:44)
[2018-09-19] MEDS: Heparin VIAL(*) 5000 UNITS/ML VIAL (FIVE THOUSAND) SUBCUT SCH ×3 (05:15→21:12)
[2018-09-19 05:29] LABS: ABS Lymphocytes 0.7 10^3/ul (1.0-4.8); ABS Monocytes 0.9 10^3/ul (0-0.8); Eosinophil % 0.3 %; Hematocrit 25 % (35-47); Hemoglobin 7.9 g/dL (12.0-16.0); Lymphocyte % 5.6 %; Mean Corpuscular HGB Conc 32 g/dL (31-36); Mean Corpuscular Hemoglobin 27 pg (27-31); Mean Corpuscular Volume 85 fL (80-97); Mean Platelet Volume 7.3 fL (7.4-10.4); Platelet Count 431 10^3/uL (150-450); Red Blood Count 2.97 10^6 /uL (3.70-4.87); Red Cell Distribution Width 16 % (10.5-15); White Blood Count 12.6 10^3/uL (3.5-10.8)
[2018-09-19] MEDS: Albuterol 2.5 MG/3 ML NEB.SOL* (0.083%) INH PRN (05:33)
[2018-09-19 05:53] LABS: Albumin 2.5 g/dL (3.2-5.2); Albumin/Globulin Ratio 0.7 (1-3); BUN/Creatinine Ratio 53.3 (8-20); Calcium 8.7 mg/dL (8.6-10.3); EGFR African American 263.9 (>60); EGFR Non-African American 218.1 (>60); Globulin 3.5 g/dL (2-4); Magnesium 1.9 mg/dL (1.9-2.7); Potassium 4.4 mmol/L (3.5-5.0); Total Bilirubin 0.4 mg/dL (0.2-1.0)
[2018-09-19] MEDS: FLUoxetine CAP* 10 MG PO SCH (08:12)
[2018-09-19] MEDS: Famotidine IV* 10 MG/ML 2 ML (20 mg) IV SCH (08:12)
[2018-09-19] MEDS: Metoprolol Tartrate TAB* 25 MG PO SCH ×2 (08:13→21:11)
[2018-09-19] MEDS: PTO:Budesonide/Formote 160/4.5(NF) MDI INH SCH ×2 (08:45→19:13)
--- NOTE | 2018-09-19 10:22 | PN ---
Date of Service: 09/19/18 Critical Care Services: 24 hours less anxious today. allowing RT to put her on TC and tolerating so far this morning Vital Signs: Temp Pulse Resp BP SpO2 FiO2 98.6 F 79 25 95/52 93 30 09/19/18 06:01 09/19/18 06:01 09/19/18 06:00 09/19/18 06:01 09/19/18 06:01 09/19 07:33 Physical Exam: Gen: trach'd. sitting up in bed HEENT: EOMI Lungs: Decreased BS's Cardiac: RRR Abdomen: +BS, Soft, NTP. wound vac with minimal drainage Extremities: minimal ELOISA Neuro: able to only move toes and fingers Fluid Balance (Past 24 Hours): I= O= Net Intake & Output 09/17/18 09/18/18 09/19/18 09/20/18 06:59 06:59 06:59 06:59 Intake Total 1652 1537 1803 Output Total 1555 1221 1665 Balance 97 316 138 Weight 150 lb 152 lb 8.061 oz Intake: Medicated IV 0 KCl 0 Oral 0 0 0 Tube Feeding 1532 1342 1583 Tube Feeding Flush Amount 120 195 220 NG Tube Irrigate Amount 0 0 Output: NG Tube Drainage Amount 0 Wound Vac 100 0 Rfost 1355 1111 1345 Liquid Stool 300 Colostomy 200 10 Ileostomy 20 Estimated Blood Loss 0 Tube Feeding Residual 0 0 Amount Wasted Other: Date of Last Bowel 09/17/18 09/19/18 Movement # Bowel Movements colostomy Labs: Laboratory Results - last 24 hr 09/19/18 09/19/18 05:20 05:20 WBC 12.6 H RBC 2.97 L Hgb 7.9 L Hct 25 L MCV 85 MCH 27 MCHC 32 RDW 16 H Plt Count 431 MPV 7.3 L Neut % (Auto) 86.9 Lymph % (Auto) 5.6 [place] % (Auto) 7.0 Eos % (Auto) 0.3 Baso % (Auto) 0.2 Absolute Neuts (auto) 11.0 H Absolute Lymphs (auto) 0.7 L Absolute Monos (auto) 0.9 H Absolute Eos (auto) 0.0 Absolute Basos (auto) 0.0 Absolute Nucleated RBC 0.0 Nucleated RBC % 0.0 Sodium 134 L Potassium 4.4 Chloride 99 L Carbon Dioxide 30 Anion Gap 5 BUN 16 Creatinine 0.30 L Est GFR ( Amer) 263.9 Est GFR (Non-Af Amer) 218.1 BUN/Creatinine Ratio 53.3 H Glucose 182 H Calcium 8.7 Magnesium 1.9 Total Bilirubin 0.40 AST 18 ALT 13 Alkaline Phosphatase 114 H Total Protein 6.0 L Albumin 2.5 L Globulin 3.5 Albumin/Globulin Ratio 0.7 L Impression: 73 F with prolonged intubation/mechanical ventilation admitted for perforated sigmoid colon in the setting of diverticultis # Ex-lap x 3 for perforated sigmoid colon diverticulitis # Sepsis/septic shock-resolved # ARF on CRF with trach and tolerating TC when not anxious # Anemia- H/H stable, no S/Sx of acute/active blood loss # Critical illness polyneuromyopathy # HTN # Severe depression Plan: Plan: - continued emotional support for patient - continue SSRI --Continue benzo's for anxiety. will change to scheduled and continue PRN doses - Continue TC. If refuses switch to PST - wound vac as per surgery - Patient tolerating tube feeds - needs aggressive PT/OT therapy and will eventually need rehab --BP controlled well with low dose Metoprolol --PPX --SQH --placement Critical Care Time: 45
[2018-09-19] MEDS: Acetaminophen TAB* 325 MG PO PRN (19:44)
--- NOTE | 2018-09-19 19:47 | PN ---
Progress Note - Progress Note Date of Service: 09/19/18 SOAP: Subjective: Spending more time on trach mask today and out of bed. Tolerating tube feeds Objective: Temp Pulse Resp BP Pulse Ox 98.6 F 86 22 109/56 99 09/19/18 19:00 09/19/18 19:00 09/19/18 19:00 09/19/18 19:00 09/19/18 19:00 Intake & Output 09/17/18 09/18/18 09/19/18 09/20/18 06:59 06:59 06:59 06:59 Intake Total 1652 1537 1803 Output Total 1555 1221 1665 490 Balance 97 316 138 -490 Weight 150 lb 152 lb 8.061 oz Intake: Medicated IV 0 KCl 0 Oral 0 0 0 Tube Feeding 1532 1342 1583 Tube Feeding Flush Amount 120 195 220 NG Tube Irrigate Amount 0 0 Output: NG Tube Drainage Amount 0 Wound Vac 100 0 Frost 1355 1111 1345 490 Liquid Stool 300 Colostomy 200 10 Ileostomy 20 Estimated Blood Loss 0 Tube Feeding Residual 0 0 Amount Wasted Other: Date of Last Bowel 09/17/18 09/19/18 Movement # Bowel Movements colostomy PEX: Comfortable Awake and alert Abd is soft and non-distended. Ostomy pink with stool in bag. Wound vac changed- biologic mesh in good position, clean Laboratory Results - last 24 hr 09/19/18 09/19/18 05:20 05:20 WBC 12.6 H RBC 2.97 L Hgb 7.9 L Hct 25 L MCV 85 MCH 27 MCHC 32 RDW 16 H Plt Count 431 MPV 7.3 L Neut % (Auto) 86.9 Lymph % (Auto) 5.6 [place] % (Auto) 7.0 Eos % (Auto) 0.3 Baso % (Auto) 0.2 Absolute Neuts (auto) 11.0 H Absolute Lymphs (auto) 0.7 L Absolute Monos (auto) 0.9 H Absolute Eos (auto) 0.0 Absolute Basos (auto) 0.0 Absolute Nucleated RBC 0.0 Nucleated RBC % 0.0 Sodium 134 L Potassium 4.4 Chloride 99 L Carbon Dioxide 30 Anion Gap 5 BUN 16 Creatinine 0.30 L Est GFR ( Amer) 263.9 Est GFR (Non-Af Amer) 218.1 BUN/Creatinine Ratio 53.3 H Glucose 182 H Calcium 8.7 Magnesium 1.9 Total Bilirubin 0.40 AST 18 ALT 13 Alkaline Phosphatase 114 H Total Protein 6.0 L Albumin 2.5 L Globulin 3.5 Albumin/Globulin Ratio 0.7 L Assessment: S/P exlap for perforated sigmoid colon with colostomy-midline fascia bridged with biologic mesh Vent dependence Plan: Continue trach trials Wound care-wound vac Tube feeds When off vent, could be placed for continued wound care and tube feeds/ rehabilitation.
[2018-09-20] MEDS: Albuterol 2.5 MG/3 ML NEB.SOL* (0.083%) INH PRN (05:10)
[2018-09-20] MEDS: Heparin VIAL(*) 5000 UNITS/ML VIAL (FIVE THOUSAND) SUBCUT SCH ×3 (05:35→21:59)
[2018-09-20 05:53] LABS: ABS Eosinophils 0.1 10^3/ul (0-0.6); ABS Lymphocytes 0.5 10^3/ul (1.0-4.8); ABS Monocytes 0.9 10^3/ul (0-0.8); ABS Neutrophils 8.3 10^3/ul (1.5-7.7); Eosinophil % 0.7 %; Hematocrit 23 % (35-47); Hemoglobin 7.4 g/dL (12.0-16.0); Lymphocyte % 5.5 %; Mean Corpuscular HGB Conc 33 g/dL (31-36); Mean Corpuscular Hemoglobin 28 pg (27-31); Mean Corpuscular Volume 84 fL (80-97); Mean Platelet Volume 7.2 fL (7.4-10.4); Nucleated Red Blood Cells % 0.1; Platelet Count 441 10^3/uL (150-450); Red Blood Count 2.69 10^6 /uL (3.70-4.87); Red Cell Distribution Width 16 % (10.5-15); White Blood Count 9.9 10^3/uL (3.5-10.8)
[2018-09-20 06:09] LABS: Albumin 2.4 g/dL (3.2-5.2); Albumin/Globulin Ratio 0.7 (1-3); Calcium 8.3 mg/dL (8.6-10.3); EGFR African American 263.9 (>60); EGFR Non-African American 218.1 (>60); Globulin 3.5 g/dL (2-4); Magnesium 1.9 mg/dL (1.9-2.7); Potassium 4.3 mmol/L (3.5-5.0); Total Bilirubin 0.3 mg/dL (0.2-1.0); Total Protein 5.9 g/dL (6.4-8.9)
[2018-09-20] MEDS: Metoprolol Tartrate TAB* 25 MG PO SCH ×2 (08:53→21:19)
[2018-09-20] MEDS: Famotidine IV* 10 MG/ML 2 ML (20 mg) IV SCH (08:54)
[2018-09-20] MEDS: FLUoxetine CAP* 10 MG PO SCH (08:54)
--- NOTE | 2018-09-20 11:06 | PN ---
Date of Service: 09/20/18 Critical Care Services: tolerated TC >14 hours yesterday in improved spirits Vital Signs: Temp Pulse Resp BP SpO2 FiO2 98.8 F 86 17 100/56 100 50 09/20/18 07:00 09/20/18 07:00 09/20/18 07:00 09/20/18 07:00 09/20/18 07:00 09/20 07:28 Physical Exam: Gen: Trach'd. AO times 3. NAD HEENT: EOMI Lungs: Decreased BS's Cardiac: RRR Abdomen: + BS's, Soft, NTP. Wound vac appears intact with little drainage Extremities: Minimal ELOISA Neuro: can only move fingers and toes. cannot lift arms or legs off bed Fluid Balance (Past 24 Hours): I= O= Net Intake & Output 09/18/18 09/19/18 09/20/18 09/21/18 06:59 06:59 06:59 06:59 Intake Total 1537 1803 770 185 Output Total 1221 1665 845 Balance 316 138 -75 185 Weight 150 lb 152 lb 8.061 oz 153 lb 10.205 oz Intake: Oral 0 0 Tube Feeding 1342 1583 710 185 Tube Feeding Flush Amount 195 220 NG Tube Irrigate Amount 0 60 Output: Wound Vac 100 0 Frost 1111 1345 845 Liquid Stool 300 Colostomy 10 Ileostomy 20 Tube Feeding Residual 0 0 Amount Wasted Other: Date of Last Bowel 09/19/18 Movement ADLs: Meal Record Start: 08/29/18 16: 46 Labs: Laboratory Results - last 24 hr 09/20/18 09/20/18 05:40 05:40 WBC 9.9 RBC 2.69 L Hgb 7.4 L Hct 23 L MCV 84 MCH 28 MCHC 33 RDW 16 H Plt Count 441 MPV 7.2 L Neut % (Auto) 84.5 Lymph % (Auto) 5.5 [place] % (Auto) 8.8 Eos % (Auto) 0.7 Baso % (Auto) 0.5 Absolute Neuts (auto) 8.3 H Absolute Lymphs (auto) 0.5 L Absolute Monos (auto) 0.9 H Absolute Eos (auto) 0.1 Absolute Basos (auto) 0.0 Absolute Nucleated RBC 0.0 Nucleated RBC % 0.1 Sodium 135 Potassium 4.3 Chloride 99 L Carbon Dioxide 32 Anion Gap 4 BUN 15 Creatinine 0.30 L Est GFR ( Amer) 263.9 Est GFR (Non-Af Amer) 218.1 BUN/Creatinine Ratio 50.0 H Glucose 164 H Calcium 8.3 L Magnesium 1.9 Total Bilirubin 0.30 AST 17 ALT 13 Alkaline Phosphatase 112 H Total Protein 5.9 L Albumin 2.4 L Globulin 3.5 Albumin/Globulin Ratio 0.7 L Impression: 73 F with prolonged intubation/mechanical ventilation admitted for perforated sigmoid colon in the setting of diverticultis # Ex-lap x 3 for perforated sigmoid colon diverticulitis # Sepsis/septic shock-resolved # ARF on CRF with trach and tolerating TC when not anxious # Anemia- H/H stable, no S/Sx of acute/active blood loss # Critical illness polyneuromyopathy # HTN # Severe depression Plan: Plan: - continue emotional support for patient - continue SSRI --Continue benzo's for anxiety. will change to scheduled and continue PRN doses - Continue TC. If refuses switch to PST. patient should do no more than 12 hours of TC - wound vac as per surgery - Patient tolerating tube feeds - needs aggressive PT/OT therapy and will eventually need rehab --BP controlled well with low dose Metoprolol --PPX --SQH --placement Critical Care Time: 45
--- NOTE | 2018-09-20 12:02 | PN ---
Progress Note - Progress Note Date of Service: 09/20/18 Note: Surgery Progress: S: Tube Former Operator's note reviewed. Patient on trach collar. Denies abd pain, N/V. Sarita TF's. Colostomy working well. Sitting up in chair, working with speech therapy. O: Vital Signs - 8 hr 09/20/18 09/20/18 09/20/18 04:00 05:00 05:11 Temperature 98.4 F 98.6 F Pulse Rate 85 92 90 Respiratory 18 22 20 Rate Blood Pressure 99/56 117/63 (mmHg) O2 Sat by Pulse 100 100 99 Oximetry 09/20/18 09/20/18 09/20/18 05:46 06:00 07:00 Temperature 98.6 F 98.8 F Pulse Rate 95 86 Respiratory 21 22 17 Rate Blood Pressure 130/70 100/56 (mmHg) O2 Sat by Pulse 96 100 Oximetry Intake and Output Last 24 Hours 09/18/18 09/19/18 09/20/18 09/21/18 06:59 06:59 06:59 06:59 Intake Total 1537 1803 770 185 Output Total 1221 1665 845 Balance 316 138 -75 185 Weight 150 lb 152 lb 8.061 oz 153 lb 10.205 oz Intake: Oral 0 0 Tube Feeding 1342 1583 710 185 Tube Feeding Flush Amount 195 220 NG Tube Irrigate Amount 0 60 Output: Wound Vac 100 0 Frost 1111 1345 845 Liquid Stool 300 Colostomy 10 Ileostomy 20 Tube Feeding Residual 0 0 Amount Wasted Other: Date of Last Bowel 09/19/18 Movement Gen: sitting up in chair; trach collar in place; NAD Heart: reg Lungs: fairly clear to ausc Abd: VAC in place; ostomy w/ liquid light brown stool; soft; mild tenderness Right side only A: s/p exp lap, sigmoid colectomy, end-colostomy for per'f colon, doing well from surgical standpoint; still weaning from vent support; working w/ speech tx ; will need PT/OT, Rehab when ready. P: cont current plans/management; will d/w Dr. Sanchez
[2018-09-20] MEDS: PTO:Budesonide/Formote 160/4.5(NF) MDI INH SCH ×2 (16:33→19:17)
[2018-09-20] MEDS: oxyCODONE TAB* 5 MG TAB PO PRN (21:58)
[2018-09-20] MEDS: LORazepam INJ* 2 MG/ML 1 ML VIAL IV PUSH PRN (23:56)
[2018-09-21] MEDS: Heparin VIAL(*) 5000 UNITS/ML VIAL (FIVE THOUSAND) SUBCUT SCH ×3 (05:37→21:46)
[2018-09-21] MEDS: PTO:Budesonide/Formote 160/4.5(NF) MDI INH SCH (07:34)
[2018-09-21] MEDS: Famotidine IV* 10 MG/ML 2 ML (20 mg) IV SCH (08:24)
[2018-09-21] MEDS: Metoprolol Tartrate TAB* 25 MG PO SCH ×2 (08:25→21:46)
[2018-09-21] MEDS: FLUoxetine CAP* 10 MG PO SCH (08:25)
--- NOTE | 2018-09-21 16:08 | PN ---
Date of Service: 09/21/18 - Pul f/u note Critical Care Services: Pt seen and examined at bedside. Pt sitting up in chair. Denies any issues. Reports feeling tired and would like to get back to her bed. Active Medications Generic Name Dose Route Start Last Admin Trade Name Freq PRN Reason Stop Dose Admin Acetaminophen 650 mg 09/17/18 15:22 09/19/18 19:44 Tylenol Tab* PO 650 mg Q6H PRN Administration PAIN - MILD Albuterol 2.5 mg 08/30/18 04:13 09/20/18 05:10 Ventolin 2.5 Mg/3 Ml Neb.Dang* INH 2.5 mg Q6H PRN Administration WHEEZING Budesonide/Formoterol Fumarate 2 puff 08/31/18 21:00 09/21/18 07:34 Symbicort 160/4.5 (Nf) INH Not Given BID EMIL Protocol Famotidine 20 mg 09/05/18 09:00 09/20/18 08:54 Pepcid Iv* IV 20 mg DAILY EMIL Administration Fluoxetine HCl 10 mg 09/18/18 14:00 09/20/18 08:54 Prozac Cap* PO 10 mg DAILY EMIL Administration Heparin Sodium (Porcine) 5,000 units 09/01/18 10:15 09/21/18 05:37 Heparin Vial(*) SUBCUT 5,000 units Q8HR EMIL Administration Heparin Sodium (Porcine) 1 - 3 ml 09/12/18 18:00 09/21/18 05:39 Heparin Flush Picc/Ml/Cvc(*) FLUSH 1 ml 0600,1800 EMIL Administration Protocol Lorazepam 0.5 mg 09/15/18 23:31 09/20/18 23:56 Ativan Inj* IV PUSH 0.5 mg Q4H PRN Administration ANXIETY Metoprolol Tartrate 12.5 mg 09/15/18 21:00 09/20/18 21:19 Lopressor Tab* PO 12.5 mg Q12HR EMIL Administration Miscellaneous 1 ea 09/15/18 23:31 Ativan Pyxis [place] N/A .ATIVAN IV [place] PRN PYXIS [place] Ondansetron HCl 4 mg 08/31/18 20:00 Zofran Inj* IV Q6H PRN NAUSEA Oxycodone HCl 5 mg 09/17/18 15:10 09/20/18 21:58 Roxycodone Tab* PO 5 mg Q4H PRN Administration PAIN Vital Signs Temp Pulse Resp BP Pulse Ox 99.0 F 104 26 137/72 90 09/21/18 09:00 09/21/18 09:00 09/21/18 09:00 09/21/18 09:00 09/21/18 09:00 Vital Signs: Temp Pulse Resp BP SpO2 FiO2 99.0 F 104 26 137/72 90 50 09/21/18 09:00 09/21/18 09:00 09/21/18 09:00 09/21/18 09:00 09/21/18 09:00 09/21 14:00 Physical Exam: O/E: Pt in NAD HEENT: PERRLA, no JVD, NGT+, trach+ Lungs: Good a/e b/l CVS: S1, S2+ Abd: Soft, BS+, VAC in place; ostomy w/ liquid light brown stool; soft Ext: RUE swollen Neuro: ALert, awake, follows commands Fluid Balance (Past 24 Hours): I= 1844 O= 1415 Net 429 Intake & Output 09/19/18 09/20/18 09/21/18 09/22/18 06:59 06:59 06:59 06:59 Intake Total 2720 208 4500 Output Total 8799 866 9453 70 Balance 138 -75 429 -70 Weight 152 lb 8.061 oz 153 lb 10.205 oz 152 lb 1.766 oz Intake: Oral 0 0 Tube Feeding 5293 688 3196 Tube Feeding Flush Amount 220 90 NG Tube Irrigate Amount 0 60 Output: Wound Vac 0 Frost 9252 419 4429 70 Liquid Stool 300 Colostomy 180 Ileostomy 20 Estimated Blood Loss 0 Tube Feeding Residual 0 0 Amount Wasted Other: Date of Last Bowel 09/19/18 09/21/2018 Movement Labs: Labs: No new labs Nutrition: Tube feeds- Jevity, Soft diet as tolerated Impression: 73 F with prolonged intubation/mechanical ventilation admitted for perforated sigmoid colon in the setting of diverticultis Ex-lap x 3 for perforated sigmoid colon diverticulitis Sepsis/septic shock-resolved Acute respiratory failure, now prolonged intubation and mechanical ventilation s/p trach Leukocytosis- resolved Anemia- H/H stable, no S/Sx of acute/active blood loss Anasarca, pleural effusion Critical illness polyneuromyopathy Depression/anxiety Plan: Neuro: Doing well, 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 Is on Prozac and Ativan prn. Oxycodone for pain. Delirium precautions. Resp: Prolonged intubation s/p trach. Tolerating trach collar during daytime, needing vent at night. Pulm toilet. Might need vent facility. c/w bronchodialtors prn CVS: On low dose metoprolol. BP well controlled. No acute issues GI: VAC in place; ostomy w/ liquid light brown stool. Sx f/u noted. Had ? aspiration event while eating. Tolerating tube feeds. Consider PEG if unable to tolerate po. GI ppx Renal: UO good. Cr within normal limits, no electrolyte abnormalities. ID: Sepsis resolved. Completed abx. Leucocytosis resolved. Haem: Anemia, stable. Will transfuse if less than 7 DVT, GI px OOB to chair as tolerated c/w Weaning of vent PT/OT Will need possible d/c planning to vent facility Critical Care Time: 25 min
--- NOTE | 2018-09-21 17:01 | PN ---
Progress Note - Progress Note Date of Service: 09/21/18 SOAP: Subjective: Spending longer periods of time off the ventilator Took some thick liquids orally today OOB in chair Tolerating tube feeds Objective: Temp Pulse Resp BP Pulse Ox 99.0 F 104 26 137/72 90 09/21/18 09:00 09/21/18 09:00 09/21/18 09:00 09/21/18 09:00 09/21/18 09:00 Intake & Output 09/19/18 09/20/18 09/21/18 09/22/18 06:59 06:59 06:59 06:59 Intake Total 8498 739 7727 Output Total 6827 349 0778 70 Balance 138 -75 429 -70 Weight 152 lb 8.061 oz 153 lb 10.205 oz 152 lb 1.766 oz Intake: Oral 0 0 Tube Feeding 0364 811 4969 Tube Feeding Flush Amount 220 90 NG Tube Irrigate Amount 0 60 Output: Wound Vac 0 Frost 9939 913 1626 70 Liquid Stool 300 Colostomy 180 Ileostomy 20 Estimated Blood Loss 0 Tube Feeding Residual 0 0 Amount Wasted Other: Date of Last Bowel 09/19/18 09/21/2018 Movement PEX: Comfortable Abd is soft and slightly distended. Colostomy pink with stool output Midline wound is clean with mesh in good position-some fine granulation tissue forming on mesh. Wound vac changed Assessment: S/P exlap with sigmoid colon resection with colostomy for perforated diverticula with colostomy Sepsis resolved Vent dependence-improving Plan: Wound vac changed today Tube feeds Vent weaning Placement plans
[2018-09-21] MEDS: LORazepam INJ* 2 MG/ML 1 ML VIAL IV PUSH PRN (21:47)
[2018-09-21] MEDS: oxyCODONE TAB* 5 MG TAB PO PRN (23:41)
--- NOTE | 2018-09-22 04:56 | PN ---
Progress Note - Progress Note Date of Service: 09/22/18 Note: Surgery Progress Note S: Patient awake, says she is doing well. Yesterday was on TC throughout day and VAC was changed by Dr. Sanchez. No acute overnight events per RN. Remains afebrile. O: Vital Signs - 24 hr 09/21/18 09/21/18 09/21/18 05:00 05:01 05:50 Temperature 99.0 F 99.0 F Pulse Rate 84 88 Respiratory 24 22 Rate Blood Pressure 109/59 (mmHg) O2 Sat by Pulse 97 98 Oximetry 09/21/18 09/21/18 09/21/18 06:00 06:46 07:00 Temperature 99.0 F 99.1 F Pulse Rate 88 86 Respiratory 25 Rate Blood Pressure 113/60 98/55 (mmHg) O2 Sat by Pulse 97 98 Oximetry 09/21/18 09/21/18 09/21/18 08:00 08:01 09:00 Temperature 99.1 F 99.1 F 99.0 F Pulse Rate 89 87 104 Respiratory 23 34 Rate Blood Pressure 105/58 137/72 (mmHg) O2 Sat by Pulse 97 97 90 Oximetry 09/21/18 09/21/18 09/21/18 10:00 11:00 12:00 Temperature 99.1 F 99.3 F 99.5 F Pulse Rate 87 85 93 Respiratory 23 28 34 Rate Blood Pressure 131/74 103/58 111/64 (mmHg) O2 Sat by Pulse 95 98 97 Oximetry 09/21/18 09/21/18 09/21/18 13:00 14:00 15:00 Temperature 99.5 F 99.5 F 99.1 F Pulse Rate 93 97 101 Respiratory 29 34 37 Rate Blood Pressure 126/71 127/74 137/75 (mmHg) O2 Sat by Pulse 98 97 95 Oximetry 09/21/18 09/21/18 09/21/18 16:00 17:00 18:00 Temperature 99.3 F 99.3 F 99.3 F Pulse Rate 98 99 98 Respiratory 33 31 28 Rate Blood Pressure 127/68 109/59 129/72 (mmHg) O2 Sat by Pulse 95 95 96 Oximetry 09/21/18 09/21/18 09/21/18 19:00 19:58 20:00 Temperature 99.5 F 99.7 F 99.5 F Pulse Rate 103 104 Respiratory 31 28 Rate Blood Pressure 140/76 141/82 (mmHg) O2 Sat by Pulse 96 96 Oximetry 09/21/18 09/21/18 09/21/18 21:00 21:47 22:00 Temperature 99.5 F 99.5 F Pulse Rate 102 79 Respiratory 29 31 26 Rate Blood Pressure 144/78 95/57 (mmHg) O2 Sat by Pulse 96 98 Oximetry 09/21/18 09/21/18 09/21/18 23:00 23:01 23:09 Temperature 99.9 F 99.9 F 99.9 F Pulse Rate 86 88 90 Respiratory 29 29 29 Rate Blood Pressure 116/67 (mmHg) O2 Sat by Pulse 97 98 98 Oximetry 09/22/18 09/22/18 09/22/18 00:00 00:53 01:00 Temperature 99.9 F 99.9 F Pulse Rate 87 85 Respiratory 26 22 22 Rate Blood Pressure 114/67 98/51 (mmHg) O2 Sat by Pulse 98 97 Oximetry 09/22/18 09/22/18 09/22/18 01:53 02:00 02:01 Temperature 99.7 F 99.7 F Pulse Rate 91 91 Respiratory 27 27 25 Rate Blood Pressure 121/67 (mmHg) O2 Sat by Pulse 96 97 Oximetry 09/22/18 09/22/18 09/22/18 03:00 03:55 04:00 Temperature 99.5 F 99.3 F Pulse Rate 97 94 Respiratory 31 26 27 Rate Blood Pressure 137/82 125/71 (mmHg) O2 Sat by Pulse 97 96 Oximetry Intake & Output 09/21/18 09/21/18 09/22/18 14:59 22:59 06:59 Intake Total 490 45 Output Total 350 755 200 Balance -350 -265 -155 Intake: Oral 0 Tube Feeding 430 Tube Feeding Flush Amount 60 30 NG Tube Irrigate Amount 15 Output: Wound Vac 250 Urine 280 280 Frost 70 175 150 Colostomy 50 50 Labs: no labs today Physical exam: General: older woman lying in bed, ventilated Abd: minimally tender, VAC in place, colostomy patent with soft stool in bag Ext: +edema, +DP pulses bilaterally A/P: 73 F post op exploratory laparotomy for perforated diverticulitis vs. stercoral colitis, recovered from septic shock, prolonged ventilation requiring tracheostomy, stable. - Per nurse, q3 day labs. Patient remains afebrile, VSS - Wean ventilator per ICU team - Continue tube feeds to goal - No abx - Ppx: HSQ, pepcid - Continue PT/OT
[2018-09-22] MEDS: Heparin VIAL(*) 5000 UNITS/ML VIAL (FIVE THOUSAND) SUBCUT SCH ×3 (05:09→21:07)
[2018-09-22] MEDS: PTO:Budesonide/Formote 160/4.5(NF) MDI INH SCH ×2 (06:45→08:19)
[2018-09-22] MEDS: Famotidine IV* 10 MG/ML 2 ML (20 mg) IV SCH (08:43)
[2018-09-22] MEDS: FLUoxetine CAP* 10 MG PO SCH (08:47)
[2018-09-22] MEDS: Metoprolol Tartrate TAB* 25 MG PO SCH ×2 (08:47→21:08)
--- NOTE | 2018-09-22 14:31 | PN ---
Date of Service: 09/22/18 - [facility] note Critical Care Services: Pt seen and examined at bedside. Pt reports feeling well. Reports feeling depressed. Denies pain. Active Medications Generic Name Dose Route Start Last Admin Trade Name Freq PRN Reason Stop Dose Admin Acetaminophen 650 mg 09/17/18 15:22 09/19/18 19:44 Tylenol Tab* PO 650 mg Q6H PRN Administration PAIN - MILD Albuterol 2.5 mg 08/30/18 04:13 09/20/18 05:10 Ventolin 2.5 Mg/3 Ml Neb.Dang* INH 2.5 mg Q6H PRN Administration WHEEZING Budesonide/Formoterol Fumarate 2 puff 08/31/18 21:00 09/22/18 08:19 Symbicort 160/4.5 (Nf) INH Not Given BID EMIL Protocol Famotidine 20 mg 09/05/18 09:00 09/22/18 08:43 Pepcid Iv* IV 20 mg DAILY EMIL Administration Fluoxetine HCl 10 mg 09/18/18 14:00 09/22/18 08:47 Prozac Cap* PO 10 mg DAILY EMIL Administration Heparin Sodium (Porcine) 5,000 units 09/01/18 10:15 09/22/18 13:32 Heparin Vial(*) SUBCUT 5,000 units Q8HR EMIL Administration Heparin Sodium (Porcine) 1 - 3 ml 09/22/18 09:00 09/22/18 08:45 Heparin Flush Picc/Ml/Cvc(*) FLUSH 2 ml BID EMIL Administration Protocol Lorazepam 0.5 mg 09/15/18 23:31 09/21/18 21:47 Ativan Inj* IV PUSH 0.5 mg Q4H PRN Administration ANXIETY Metoprolol Tartrate 12.5 mg 09/15/18 21:00 09/22/18 08:47 Lopressor Tab* PO 12.5 mg Q12HR EMIL Administration Miscellaneous 1 ea 09/15/18 23:31 Ativan Pyxis [place]burn N/A .ATIVAN IV BLACKBURN PRN PYXIS BLACKBURN Ondansetron HCl 4 mg 08/31/18 20:00 Zofran Inj* IV Q6H PRN NAUSEA Oxycodone HCl 5 mg 09/17/18 15:10 09/21/18 23:41 Roxycodone Tab* PO 5 mg Q4H PRN Administration PAIN Vital Signs: Temp Pulse Resp BP SpO2 FiO2 99.0 F 97 37 151/79 95 30 09/22/18 13:01 09/22/18 13:01 09/22/18 13:01 09/22/18 13:01 09/22/18 13:01 09/22 12:00 Physical Exam: O/E: Pt in NAD HEENT: PERRLA, no JVD, NGT+, trach+ Lungs: Good a/e b/l CVS: S1, S2+ Abd: Soft, BS+, VAC in place; ostomy w/ liquid light brown stool; soft Ext: RUE swollen Neuro: ALert, awake, follows commands Fluid Balance (Past 24 Hours): I= 120 O= 255 Net -135 Intake & Output 09/20/18 09/21/18 09/22/18 09/23/18 06:59 06:59 06:59 06:59 Intake Total 770 1844 1017 120 Output Total 845 1415 1380 255 Balance -75 429 -363 -135 Weight 153 lb 10.205 oz 152 lb 1.766 oz 151 lb 10.848 oz Intake: Oral 0 0 Tube Feeding 710 1754 882 Tube Feeding Flush Amount 90 120 NG Tube Irrigate Amount 60 15 120 Output: Wound Vac 250 Urine 560 Frost 845 1235 470 255 Colostomy 180 100 Estimated Blood Loss 0 Tube Feeding Residual 0 Amount Wasted Other: Date of Last Bowel 09/21/2018 Movement Labs: Labs: No new labs Nutrition: Tube feeds and soft diet orally Impression: 73 F with prolonged intubation/mechanical ventilation admitted for perforated sigmoid colon in the setting of diverticultis Ex-lap x 3 for perforated sigmoid colon diverticulitis Sepsis/septic shock-resolved Acute respiratory failure, now prolonged intubation and mechanical ventilation s /p trach Leukocytosis- resolved Anemia- H/H stable, no S/Sx of acute/active blood loss Anasarca, pleural effusion Critical illness polyneuromyopathy Depressed mood Plan: Neuro: Doing well, anxious/depressed about flange turner of events since hospitalization. Is on Prozac and Ativan prn. Oxycodone for pain. Delirium precautions. Resp: Prolonged intubation s/p trach. Tolerating trach collar during daytime, needing vent at night. Pulm toilet. Might need vent facility. c/w bronchodialtors prn. H/o pl effusion, will rpt CXR in am CVS: On low dose metoprolol. BP well controlled. No acute issues GI: VAC in place; ostomy w/ liquid light brown stool. Sx f/u noted. Tolerating tube feeds. Consider PEG if unable to tolerate po. GI ppx Renal: UO good. Cr within normal limits, no electrolyte abnormalities. ID: Sepsis resolved. Completed abx. Leucocytosis resolved. Haem: Anemia, stable. Will rpt Hb. Will transfuse if less than 7 DVT, GI px OOB to chair as tolerated PT/OT Will need possible d/c planning to vent facility Critical Care Time: 25 min
[2018-09-22 16:07] LABS: Hematocrit 25 % (35-47); Hemoglobin 7.9 g/dL (12.0-16.0); Mean Corpuscular HGB Conc 32 g/dL (31-36); Mean Corpuscular Hemoglobin 27 pg (27-31); Mean Corpuscular Volume 83 fL (80-97); Mean Platelet Volume 7.3 fL (7.4-10.4); Platelet Count 554 10^3/uL (150-450); Red Blood Count 2.96 10^6 /uL (3.70-4.87); Red Cell Distribution Width 16 % (10-15); White Blood Count 10.5 10^3/uL (3.5-10.8)
[2018-09-22 16:17] LABS: BUN/Creatinine Ratio 51.6 (8-20); Calcium 8.4 mg/dL (8.6-10.3); EGFR African American 254.1 (>60); Potassium 4.5 mmol/L (3.5-5.0)
[2018-09-22] MEDS: LORazepam INJ* 2 MG/ML 1 ML VIAL IV PUSH PRN (21:08)
[2018-09-22] MEDS ORDERED: Acetaminophen ADULT LIQ* 650 MG/20.3 ML UDC PO PRN (23:45)
[2018-09-23] MEDS: PTO:Budesonide/Formote 160/4.5(NF) MDI INH SCH ×3 (04:55→20:39)
[2018-09-23] MEDS: Heparin VIAL(*) 5000 UNITS/ML VIAL (FIVE THOUSAND) SUBCUT SCH ×3 (05:43→21:42)
[2018-09-23] MEDS: Famotidine IV* 10 MG/ML 2 ML (20 mg) IV SCH (08:00)
[2018-09-23] MEDS: Metoprolol Tartrate TAB* 25 MG PO SCH ×2 (08:07→20:26)
[2018-09-23] MEDS: FLUoxetine CAP* 10 MG PO SCH (08:07)
--- NOTE | 2018-09-23 09:40 | PN ---
Progress Note - Progress Note Date of Service: 09/23/18 SOAP: Subjective: Pt seen and examined. chart reviewed. depression. thirsty and hungry, failed swallow study. on tube feeds, trach collar Objective: Temp Pulse Resp BP Pulse Ox 98.8 F 80 25 114/69 97 09/23/18 09:01 09/23/18 09:01 09/23/18 09:00 09/23/18 09:00 09/23/18 09:01 Intake & Output 09/22/18 09/23/18 09/23/18 22:59 06:59 14:59 Intake Total 1163 100 80 Output Total 795 725 155 Balance 368 -625 -75 Weight 151 lb 14.376 oz follws commands; a and o x3 abdo: NPWT in place, skin edges intact colostomy: pos stool , air ext: edema throughout 1+, 2+ pitting Assessment: POD#20 from resection, trach, failed swallow; overall improving, open wound Plan: wound care OOB GI dvt proph repeat swallow study
[2018-09-23] MEDS ORDERED: Lorazepam PYXIS KEY PRN (10:01)
[2018-09-23] MEDS: LORazepam INJ* 2 MG/ML 1 ML VIAL IV PUSH PRN ×2 (10:13→16:37)
--- NOTE | 2018-09-23 10:23 | PN ---
Date of Service: 09/23/18 - [facility] note Critical Care Services: Pt seen and examined at bedside. No acute events o/n. Pt tolerated trach collar yesterday. She also tolerated Passeu Meuer valve. Mood is improved. Active Medications Generic Name Dose Route Start Last Admin Trade Name Freq PRN Reason Stop Dose Admin Acetaminophen 650 mg 09/22/18 23:45 09/22/18 23:57 Tylenol Adult Liq* PO 650 mg Q6H PRN Administration PAIN - MILD Albuterol 2.5 mg 08/30/18 04:13 09/20/18 05:10 Ventolin 2.5 Mg/3 Ml Neb.Dang* INH 2.5 mg Q6H PRN Administration WHEEZING Budesonide/Formoterol Fumarate 2 puff 08/31/18 21:00 09/23/18 08:57 Symbicort 160/4.5 (Nf) INH Not Given BID EMIL Protocol Famotidine 20 mg 09/05/18 09:00 09/23/18 08:00 Pepcid Iv* IV 20 mg DAILY EMIL Administration Fluoxetine HCl 10 mg 09/18/18 14:00 09/23/18 08:07 Prozac Cap* PO 10 mg DAILY EMIL Administration Heparin Sodium (Porcine) 5,000 units 09/01/18 10:15 09/23/18 05:43 Heparin Vial(*) SUBCUT 5,000 units Q8HR EMIL Administration Heparin Sodium (Porcine) 1 - 3 ml 09/22/18 09:00 09/23/18 08:03 Heparin Flush Picc/Ml/Cvc(*) FLUSH 3 ml BID EMIL Administration Protocol Lorazepam 0.5 mg 09/23/18 10:01 09/23/18 10:13 Ativan Inj* IV PUSH 0.5 mg Q4H PRN Administration ANXIETY Metoprolol Tartrate 12.5 mg 09/15/18 21:00 09/23/18 08:07 Lopressor Tab* PO 12.5 mg Q12HR EMIL Administration Miscellaneous 1 ea 09/23/18 10:01 Ativan Pyxis [place] N/A .ATIVAN IV BLACKBURN PRN PYXIS BLACKBURN Ondansetron HCl 4 mg 08/31/18 20:00 Zofran Inj* IV Q6H PRN NAUSEA Oxycodone HCl 5 mg 09/17/18 15:10 09/21/18 23:41 Roxycodone Tab* PO 5 mg Q4H PRN Administration PAIN Vital Signs: Temp Pulse Resp BP SpO2 FiO2 99.0 F 89 29 128/71 95 30 09/23/18 10:01 09/23/18 10:01 09/23/18 10:13 09/23/18 10:00 09/23/18 10:01 09/23 08:00 Physical Exam: O/E: Pt in NAD, sitting up in bed HEENT: PERRLA, no JVD, NGT+, trach+ Lungs: Good a/e b/l CVS: S1, S2+ Abd: Soft, BS+, VAC in place; ostomy w/ liquid light brown stool; soft Ext: RUE swollen, decreased edema Neuro: ALert, awake, follows commands Fluid Balance (Past 24 Hours): I= 80 O= 165 Net -85 Intake & Output 09/21/18 09/22/18 09/23/18 09/24/18 06:59 06:59 06:59 06:59 Intake Total 1844 1017 1383 80 Output Total 1415 1380 1775 165 Balance 429 -363 -392 -85 Weight 152 lb 1.766 oz 151 lb 10.848 oz 151 lb 14.376 oz Intake: Oral 0 0 Tube Feeding 0834 308 4399 Tube Feeding Flush Amount 90 120 200 NG Tube Irrigate Amount 15 120 80 Output: Wound Vac 250 Urine 560 Frost 4263 460 4683 165 Colostomy 180 100 200 Estimated Blood Loss 0 Tube Feeding Residual 0 Amount Wasted Other: Date of Last Bowel 09/21/2018 Movement = Labs: Laboratory Results - last 24 hr 09/22/18 09/22/18 15:56 15:56 WBC 10.5 RBC 2.96 L Hgb 7.9 L Hct 25 L MCV 83 MCH 27 MCHC 32 RDW 16 H Plt Count 554 H D MPV 7.3 L Sodium 131 L Potassium 4.5 Chloride 96 L Carbon Dioxide 30 Anion Gap 5 BUN 16 Creatinine 0.31 L Est GFR ( Amer) 254.1 Est GFR (Non-Af Amer) 210.0 BUN/Creatinine Ratio 51.6 H Glucose 159 H Calcium 8.4 L Studies: CXR 09/23/18 was personally reviewed, interval improvement in L lung opacity Nutrition: Tube feeds Impression: 73 F with prolonged intubation/mechanical ventilation admitted for perforated sigmoid colon in the setting of diverticultis Ex-lap x 3 for perforated sigmoid colon diverticulitis Sepsis/septic shock-resolved Acute respiratory failure, now prolonged intubation and mechanical ventilation s /p trach Leukocytosis- resolved Anemia- H/H stable, no S/Sx of acute/active blood loss Anasarca, pleural effusion, improving Critical illness polyneuromyopathy, PT ordered Depressed mood Plan: Neuro: Doing well, anxious/depressed about engine turner of events since hospitalization. Is on Prozac and Ativan prn. Depression is improving. Oxycodone for pain. Delirium precautions. Resp: Prolonged intubation s/p trach. Tolerating trach collar during daytime, needing vent at night. Pulm toilet. Might need vent facility. c/w bronchodialtors prn. H/o pl effusion, rpt CXR reviewed, improved infiltrate and effusion. CVS: On low dose metoprolol. BP well controlled. No acute issues GI: VAC in place; ostomy w/ liquid light brown stool. Sx f/u noted. Tolerating tube feeds. Will need rpt swallow evaluation. Consider PEG if unable to tolerate po. GI ppx Renal: UO good. Cr within normal limits, no electrolyte abnormalities. ID: Sepsis resolved. Completed abx. Leucocytosis resolved. Haem: Anemia, stable. Will rpt Hb. Will transfuse if less than 7 DVT, GI px OOB to chair as tolerated PT/OT Will need possible d/c planning to vent facility. Discharge planning to f/u on Monday. D/w Dr Morrison, pt and bedside RN
[2018-09-23] MEDS: Melatonin 3 MG TAB PO SCH (20:26)
[2018-09-23] MEDS: Albuterol 2.5 MG/3 ML NEB.SOL* (0.083%) INH PRN (20:49)
[2018-09-23] MEDS ORDERED: Melatonin 3 MG TAB PO ONE (22:18)
[2018-09-23] MEDS: oxyCODONE TAB* 5 MG TAB PO PRN (22:41)
[2018-09-24] MEDS: LORazepam INJ* 2 MG/ML 1 ML VIAL IV PUSH PRN ×2 (04:44→08:24)
[2018-09-24] MEDS: Heparin VIAL(*) 5000 UNITS/ML VIAL (FIVE THOUSAND) SUBCUT SCH ×3 (06:04→20:55)
[2018-09-24] MEDS: PTO:Budesonide/Formote 160/4.5(NF) MDI INH SCH ×2 (07:37→19:34)
[2018-09-24] MEDS: Famotidine IV* 10 MG/ML 2 ML (20 mg) IV SCH (08:27)
[2018-09-24] MEDS: FLUoxetine CAP* 10 MG PO SCH (08:37)
[2018-09-24] MEDS: Metoprolol Tartrate TAB* 25 MG PO SCH ×2 (08:37→20:40)
--- NOTE | 2018-09-24 09:19 | PN ---
Date of Service: 09/24/18 - [facility] Critical Care Services: 73 yo F presented to ED on 08/29 with diffuse abdominal pain. Recently diagnosed with diverticulitis as outpatient (by CT) and completed a course of PO Cipro 5 days prior to presentation. Pain initially improved but then returned prompting presentation to ED. On evaluation in ED AVSS. Exam notable for abdomen soft, mildly distended with diffuse tenderness and guarding. WBC 8.4. Lactic acid 2.5. CT of abdomen shows foci of free intraperitoneal air and mucosal thickening of sigmoid colon. Started on IV abx. Surgery consulted. Admitted to medical service. 08/30: feeling a bit better. WBC 11.3 08/31: (+) BM. pain improved. GG Enema ordered given large stool burden on CT - no obstruction distally.. That afternoon vomitted grape popsicle residue with subsequent tachycardia (to 170s) and tachypnea. Transferred to ICU for adenosine; rhythm atrial arrhythmia. Given Diltiazem with good effect. Bolused 1LNS. Requiring 15Lpm oximask for tachypnea and accessory muscle use. Improved with trial of NIV. [place] likely to be an aspiration pneumonitis. Started on Levophed and vasopressin to maintain adequate BP. Started on PPI for coffee ground fluid from NGT. Became unresponsive and pulseless, requiring <5min CPR before ROSC. Intubated, CVC and amy placed. Taken to OR with surgery for exploratory laparotomy; found to have perforated sigmoid colon with purulent peritonitis. Sigmoid colectomy and washout done. Abd left open with Wound VAC in place. 09/01: sedated on vent. remains on levophed and vasopressin. CXR with rightsided hazy infiltrates, likely aspiration pneumonitis. Bolused for low UOP and persistent metabolic acidosis. In evening developed Aflutter with HR 150s. started on Amiodarone gtt. Levophed changed to [place]. Improved after IVF bolus; UOP picked up as well. Requiring increased vent support. 09/02: repeat washout and second look with surgery. Abd left open with wound vac in place. weaned down to just vasopressin. 09/03: Bronch for mucus plug. Cardiac echo shows markedly dilated right heart but duplex of legs negative for DVT. Too unstable for CTA at this time. Empiric coverage for Christiana added. Went to OR for Ex lap, partial colon resection, end transverse colostomy and abdominal fascial closure with biologic mesh. Superficial wound vac placed over alloderm. 09/04: started diruese for volume overload and continued O2 demand. 09/05: O2 demand improved after recruitment maneuvers. Started trickle TF. Starting sedation vacations. 09/06: TF advancing to goal. Remains sedated despite sedation hold. 09/07: starting to awaken. Persistent leukocytosis. 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 09/08: (+) bowel function. VAC changed. Awake and following commands but minimal movement of limbs. tolerating minimal vent support. Neurology consulted for EMG and nerve conduction studies. 09/09: ENT consulted for tracheostomy 09/10: requiring IVF bolus for episode of hypotension. 09/11: On Precedex gtt for anxiety. Seroquel started. 09/12: Trach done 09/13: EMG consistent with critical illness myopathy. Pending Ach-r to rule out myathsenia gravis given additional finding of ptosis. 09/15: Trach collar during day, vent support at night. Abx course completed. Plan for 48 hr abx holiday. Started metoprolol for HTN 09/16: Trach collar limited by anxiety. 09/18: Tc again limited by anxiety. Started on SSRI for depression. continued benzo's for anxiety. 09/21: tolerating > 12 hrs Tc. OOB to chair. 09/23: failed swallow eval. tolerating PMV. possible need for vent rehab. 09/24: No overnight events Vital Signs: Temp Pulse Resp BP SpO2 FiO2 99.1 F 100 30 141/78 95 25 09/24/18 08:00 09/24/18 08:00 09/24/18 08:24 09/24/18 08:00 09/24/18 08:00 09/24 08:00 Physical Exam: Gen: resting comfortably HEENT: trach site intact. Trach collar in place Lungs: coarse bilaterally Cardiac: RRR Abdomen: soft, NTND. VAC in place. Ostomy appliance in place Extremities: warm, dry. pitting edema present x 4. able to lift both legs off bed briskly to a height of about 1 ft. Neuro: alert, following commands. mouths words. Fluid Balance (Past 24 Hours): I= O= Net Intake & Output 06/12/0309/23/18 09/24/18 09/25/18 06:59 06:59 06:59 06:59 Intake Total 1017 1383 2326 60 Output Total 1380 1775 1725 175 Balance -363 -392 601 -115 Weight 151 lb 10.848 oz 151 lb 14.376 oz 144 lb 6.444 oz Intake: Oral 0 Tube Feeding 882 1063 2106 Tube Feeding Flush Amount 120 200 140 NG Tube Irrigate Amount 15 120 80 60 Output: Wound Vac 250 200 Urine 560 Frost 470 1575 1325 175 Liquid Stool 100 Colostomy 100 200 100 Other: Date of Last Bowel 09/24/18 Movement Labs: see below Studies: 08/31 CT CAP - free air unchanged. increased ascites. distal colonic diverticulosis. Bilateral pleural effusions and associated lung volume loss. GERD. 08/31 AXR - residual contrast noted in transverse colon. no obstructive pattern identified. 08/31 CXR - L> R basilar atelectasis. COPD. cardiomegaly. 08/31 GG enema - no obvious obstruction. large amount of stool present throughout colon. 08/29 CT abd - free intraperitoneal air, large amount of stool in colon. mucosal thickening of sigmoid colon noted. Nutrition: tolerating TF. swallow eval pending Impression: 73 yo F who presented to the ED on 08/29 with perforated sigmoid diverticulitis. She failed nonoperative management and required an ex lap with sigmoidectomy and subsequent return to OR for ostomy and closure. 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 Plan: Cardiovascular: (1) Septic shock resolved; (2) Right ventricular overload on cardiac echo; (3) paroxysmal atrial fibrillation with RVR; (4) hx of mitral valve prolapse -- HR 69-101 -- SBP 96-141 -- Telemetry -- Metoprolol Home meds: Atorvastatin Pulmonary: (1) aspiration pneumonitis with acute hypoxic respriatory failure, resolved; (2) Acute respriatory failure with hypoxia secondary to critical illness neuromyopathy; (3) Chronic asthma -- RR 19-35 -- sats 92-100on trach collar -- daily trach collar, and nightly vent support -- Budesonide/Formoterol -- Albuterol as needed -- will likely need vent weaning facility Home meds: Budesonide/Formoterol, Nasacort spray, Albuterol Gastrointestinal: (1) Acute perforated sigmoid diverticulitis s/p sigmoidectomy and [place] -- diet: tolerating TF. Swallow eval pending -- bowel regimen: None -- ulcer prophylaxis: Pepcid -- Zofran as needed -- General surgery following Home meds: Pepcid Endocrine: No acute issues -- monitor BGs Home meds: Premarin Renal: (1) Hypervolemia/volume overload -- UOP: 72 ml/hr -- BMP ordered for AM -- Lasix x 1 for diuresis Home meds: None Infectious disease: (1) Severe sepsis, resolved; (2) Sigmoid diverticulitis, s/ p resection -- Tmax 99.7 -- WBC ordered with AM labs -- Micro 09/15 blood negative 09/10 blood staph epidermidis, contaminant 08/31 Peritoneal clostridium perfringens, christiana, enterococcus urine negative 08/29 blood negative -- ABX course completed Home meds: None Neurologic: (1) Postoperative pain; (2) Critical illness polyneuromyopathy -- Tylenol as needed; change to scheduled given continued need for oxycodone -- Oxycodone as needed for pain control -- PRN Ativan for anxiety -- Prozac for depression -- Melatonin for sleep Home meds: Tylenol, Melatonin Hematological: No acute issues -- CBC ordered for AM -- DVT prophylaxis: SQ Heparin Home meds: None Metabolic: (1) lactic acidosis on admission, now resolved Home meds: None Other: -- MVI Home meds: MVI Deep vein thrombosis prophylaxis: SQ Heparin Dietary: Pepcid Condition: critical Prognosis: guarded Code status: full Disposition: continue ICU care. start planning for vent rehab Cumulative time spent in the care of this patient (excluding any procedure time) : at least 60 minutes. Patient care included clinical interview (with patient and/or family), bedside exam of the patient, review of labs, x-rays, and other ancillary data, coordination of (respiratory, nursing care, review of patient's records, discussion regarding patients management with involved consultants, primary physician, pharmacists, and other healthcare personnel (dietary, case management , physical/occupational therapy etc.) Critical Care Time: 60 min
--- NOTE | 2018-09-24 10:09 | PN ---
Progress Note - Progress Note Date of Service: 09/24/18 SOAP: Subjective: Alert on trach mask Requires vent support at night Tolerating tube feeds Objective: Temp Pulse Resp BP Pulse Ox 99.3 F 82 34 141/78 92 09/24/18 09:00 09/24/18 09:00 09/24/18 09:00 09/24/18 08:00 09/24/18 09:00 Intake & Output 09/22/18 09/23/18 09/24/18 09/25/18 06:59 06:59 06:59 06:59 Intake Total 1017 1383 2326 60 Output Total 1380 1775 1725 175 Balance -363 -392 601 -115 Weight 151 lb 10.848 oz 151 lb 14.376 oz 144 lb 6.444 oz Intake: Oral 0 Tube Feeding 882 1063 2106 Tube Feeding Flush Amount 120 200 140 NG Tube Irrigate Amount 15 120 80 60 Output: Wound Vac 250 200 Urine 560 Frost 470 1575 1325 175 Liquid Stool 100 Colostomy 100 200 100 Other: Date of Last Bowel 09/24/18 Movement PEX: Comfortable-awake and alert Abd is soft and slightly distended. Ostomy pink Wound clean-granulation tissue forming on biologic mesh, wound vac changed Assessment: S/P exlap. sigmoid colon resection with colostomy-diverticular perforation Ventilator dependence Plan: Tube feeds Vent wean Wound care
[2018-09-24] MEDS ORDERED: Furosemide IV* 10 MG/ML VIAL (40 MG) IV SLOW PU ONE (10:38)
[2018-09-24] MEDS ORDERED: LORazepam INJ* 2 MG/ML 1 ML VIAL IV PUSH ONE (10:46)
[2018-09-24] MEDS ORDERED: LORazepam INJ* 2 MG/ML 1 ML VIAL ONE (10:49)
[2018-09-24] MEDS ORDERED: Lorazepam PYXIS KEY ONE (10:49)
[2018-09-24] MEDS: Albuterol 2.5 MG/3 ML NEB.SOL* (0.083%) INH PRN (11:01)
[2018-09-24] MEDS: Acetaminophen ADULT LIQ* 650 MG/20.3 ML UDC NG TUBE SCH ×2 (15:05→18:05)
[2018-09-24] MEDS: Melatonin 3 MG TAB PO SCH (20:40)
[2018-09-24] MEDS: ALPRAZolam TAB* 0.25 MG PO PRN (20:41)
[2018-09-24] MEDS: oxyCODONE TAB* 5 MG TAB PO PRN (22:19)
[2018-09-25] MEDS: Acetaminophen ADULT LIQ* 650 MG/20.3 ML UDC NG TUBE SCH ×5 (00:06→23:34)
[2018-09-25] MEDS: Heparin VIAL(*) 5000 UNITS/ML VIAL (FIVE THOUSAND) SUBCUT SCH ×3 (05:48→20:17)
[2018-09-25 06:22] LABS: Hematocrit 23 % (35-47); Hemoglobin 7.5 g/dL (12.0-16.0); Mean Corpuscular HGB Conc 32 g/dL (31-36); Mean Corpuscular Hemoglobin 27 pg (27-31); Mean Corpuscular Volume 82 fL (80-97); Platelet Count 591 10^3/uL (150-450); Red Blood Count 2.82 10^6 /uL (3.70-4.87); Red Cell Distribution Width 17 % (10-15); White Blood Count 9.4 10^3/uL (3.5-10.8)
[2018-09-25 06:36] LABS: BUN/Creatinine Ratio 48.6 (8-20); Calcium 8.3 mg/dL (8.6-10.3); EGFR African American 220.9 (>60); EGFR Non-African American 182.5 (>60); Magnesium 2.1 mg/dL (1.9-2.7); Phosphorus 4.3 mg/dL (2.5-5.0); Potassium 4.4 mmol/L (3.5-5.0)
[2018-09-25] MEDS: PTO:Budesonide/Formote 160/4.5(NF) MDI INH SCH ×2 (07:53→19:36)
[2018-09-25] MEDS: Famotidine SUSP ORALSYR 8 MG/ML G TUBE SCH (08:05)
[2018-09-25] MEDS: FLUoxetine CAP* 20 MG PO SCH (08:05)
[2018-09-25] MEDS: Multivitamins ADULT w/MIN LIQ* 15 ML UDC PO SCH (08:06)
[2018-09-25] MEDS: Metoprolol Tartrate TAB* 25 MG PO SCH ×2 (09:26→19:52)
[2018-09-25] MEDS ORDERED: QUEtiapine TAB* 25 MG PO SCH (12:00)
--- NOTE | 2018-09-25 12:17 | PN ---
Date of Service: 09/25/18 - HD 28 Critical Care Services: 73 yo F presented to ED on 08/29 with diffuse abdominal pain. Recently diagnosed with diverticulitis as outpatient (by CT) and completed a course of PO Cipro 5 days prior to presentation. Pain initially improved but then returned prompting presentation to ED. On evaluation in ED AVSS. Exam notable for abdomen soft, mildly distended with diffuse tenderness and guarding. WBC 8.4. Lactic acid 2.5. CT of abdomen shows foci of free intraperitoneal air and mucosal thickening of sigmoid colon. Started on IV abx. Surgery consulted. Admitted to medical service. 08/30: feeling a bit better. WBC 11.3 08/31: (+) BM. pain improved. GG Enema ordered given large stool burden on CT - no obstruction distally.. That afternoon vomitted grape popsicle residue with subsequent tachycardia (to 170s) and tachypnea. Transferred to ICU for adenosine; rhythm atrial arrhythmia. Given Diltiazem with good effect. Bolused 1LNS. Requiring 15Lpm oximask for tachypnea and accessory muscle use. Improved with trial of NIV. Price likely to be an aspiration pneumonitis. Started on Levophed and vasopressin to maintain adequate BP. Started on PPI for coffee ground fluid from NGT. Became unresponsive and pulseless, requiring <5min CPR before ROSC. Intubated, CVC and amy placed. Taken to OR with surgery for exploratory laparotomy; found to have perforated sigmoid colon with purulent peritonitis. Sigmoid colectomy and washout done. Abd left open with Wound VAC in place. 09/01: sedated on vent. remains on levophed and vasopressin. CXR with rightsided hazy infiltrates, likely aspiration pneumonitis. Bolused for low UOP and persistent metabolic acidosis. In evening developed Aflutter with HR 150s. started on Amiodarone gtt. Levophed changed to Rocky. Improved after IVF bolus; UOP picked up as well. Requiring increased vent support. 09/02: repeat washout and second look with surgery. Abd left open with wound vac in place. weaned down to just vasopressin. 09/03: Bronch for mucus plug. Cardiac echo shows markedly dilated right heart but duplex of legs negative for DVT. Too unstable for CTA at this time. Empiric coverage for Lex added. Went to OR for Ex lap, partial colon resection, end transverse colostomy and abdominal fascial closure with biologic mesh. Superficial wound vac placed over alloderm. 09/04: started diruese for volume overload and continued O2 demand. 09/05: O2 demand improved after recruitment maneuvers. Started trickle TF. Starting sedation vacations. 09/06: TF advancing to goal. Remains sedated despite sedation hold. 09/07: starting to awaken. Persistent leukocytosis. 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 09/08: (+) bowel function. VAC changed. Awake and following commands but minimal movement of limbs. tolerating minimal vent support. Neurology consulted for EMG and nerve conduction studies. 09/09: ENT consulted for tracheostomy 09/10: requiring IVF bolus for episode of hypotension. 09/11: On Precedex gtt for anxiety. Seroquel started. 09/12: Trach done 09/13: EMG consistent with critical illness myopathy. Pending Ach-r to rule out myathsenia gravis given additional finding of ptosis. 09/15: Trach collar during day, vent support at night. Abx course completed. Plan for 48 hr abx holiday. Started metoprolol for HTN 09/16: Trach collar limited by anxiety. 09/18: Tc again limited by anxiety. Started on SSRI for depression. continued benzo's for anxiety. 09/21: tolerating > 12 hrs Tc. OOB to chair. 09/23: failed swallow eval. tolerating PMV. possible need for vent rehab. 09/24: No overnight events 09/25: Passed swallow eval for honey thick liquids. PMV trials limited by anxiety; seroquel added Vital Signs: Temp Pulse Resp BP SpO2 FiO2 98.2 F 84 30 136/74 98 50 09/25/18 11:01 09/25/18 11:01 09/25/18 11:01 09/25/18 11:01 09/25/18 11:01 09/25 11:09 Physical Exam: Gen: Resting comfortably in chair HEENT: trach site intact Lungs: nonlabored Cardiac: RRR Abdomen: nondistended Extremities: edematous Neuro: alert and oriented Fluid Balance (Past 24 Hours): I= O= Net Intake & Output 09/23/18 09/24/18 09/25/18 09/26/18 06:59 06:59 06:59 06:59 Intake Total 1383 2326 1830 50 Output Total 1775 1725 2470 295 Balance -392 601 -203 -141 Weight 151 lb 14.376 oz 144 lb 6.444 oz 148 lb 11.229 oz Intake: Oral 0 Tube Feeding 1063 2106 1610 Tube Feeding Flush Amount 200 140 160 50 NG Tube Irrigate Amount 120 80 60 Output: Wound Vac 200 100 Frost 1575 1325 2270 295 Liquid Stool 100 100 Colostomy 200 100 Tube Feeding Residual 0 Amount Wasted Other: Date of Last Bowel 09/24/18 09/25/18 09/25/18 Movement Labs: Laboratory Results - last 24 hr 09/25/18 09/25/18 06:05 06:05 WBC 9.4 RBC 2.82 L Hgb 7.5 L Hct 23 L MCV 82 MCH 27 MCHC 32 RDW 17 H Plt Count 591 H MPV 7.0 L Sodium 136 Potassium 4.4 Chloride 99 L Carbon Dioxide 32 Anion Gap 5 BUN 17 Creatinine 0.35 L Est GFR ( Amer) 220.9 Est GFR (Non-Af Amer) 182.5 BUN/Creatinine Ratio 48.6 H Glucose 144 H Calcium 8.3 L Phosphorus 4.3 Magnesium 2.1 Studies: 08/31 CT CAP - free air unchanged. increased ascites. distal colonic diverticulosis. Bilateral pleural effusions and associated lung volume loss. GERD. 08/31 AXR - residual contrast noted in transverse colon. no obstructive pattern identified. 08/31 CXR - L> R basilar atelectasis. COPD. cardiomegaly. 08/31 GG enema - no obvious obstruction. large amount of stool present throughout colon. 08/29 CT abd - free intraperitoneal air, large amount of stool in colon. mucosal thickening of sigmoid colon noted. Nutrition: tolerating TF. start nectar thick liquids for comfort Impression: 73 yo F who presented to the ED on 08/29 with perforated sigmoid diverticulitis. She failed nonoperative management and required an ex lap with sigmoidectomy and subsequent return to OR for ostomy and closure. 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 Passed swallow eval for honey thickened liquids -- bowel regimen: None -- ulcer prophylaxis: Pepcid -- Zofran as needed; not requiring, will discontinue -- General surgery following Home meds: Pepcid Endocrine: No acute issues -- monitor BGs Home meds: Premarin Renal: (1) Hypervolemia/volume overload -- UOP: 100 ml/hr -- BMP Cr 0.5 Na 136 K 4.4 Ca 8.3, replace Mag 2.1 Phos 4.3 -- IVF: HL -- Lasix BID for diuresis Home meds: None Infectious disease: (1) Severe sepsis, resolved; (2) Sigmoid diverticulitis, s/ p resection -- Tmax 99.9 -- WBC 9.4 -- Micro 6/ blood negative 09/10 blood staph epidermidis, contaminant 08/31 Peritoneal clostridium perfringens, lex, enterococcus urine negative 08/29 blood negative -- ABX course completed Home meds: None Neurologic: (1) Postoperative pain; (2) Critical illness polyneuromyopathy -- Tylenol scheduled given continued need for oxycodone -- PRN Ibuprofen for discomfort -- Oxycodone as needed for pain control, attempting to wean off -- PRN Xanax for anxiety -- Prozac for depression, dose increased -- Melatonin for sleep -- Seroquel added for persistent anxiety regarding trach collar and passy kashmir valve trials -- PT OT following Home meds: Tylenol, Melatonin Hematological: (1) Mild thrombocytosis -- HGb 7.5 from 7.9 -- Plt 591 from 554 -- DVT prophylaxis: SQ Heparin Home meds: None Metabolic: (1) lactic acidosis on admission, now resolved Home meds: None Other: -- MVI Home meds: MVI Deep vein thrombosis prophylaxis: SQ Heparin Dietary: Pepcid Condition: critical Prognosis: guarded Code status: full Disposition: continue ICU care. social work working on [facility] Cumulative time spent in the care of this patient (excluding any procedure time) : at least 40 minutes. Patient care included clinical interview (with patient and/or family), bedside exam of the patient, review of labs, x-rays, and other ancillary data, coordination of (respiratory, nursing care, review of patient's records, discussion regarding patients management with involved consultants, primary physician, pharmacists, and other healthcare personnel (dietary, case management , physical/occupational therapy etc.) Critical Care Time: 40 min
[2018-09-25] MEDS: Furosemide IV* 10 MG/ML VIAL (40 MG) IV SLOW PU SCH ×2 (12:57→17:05)
[2018-09-25] MEDS ORDERED: Calcium Gluconate INJ* 1 GM in NS 0.9% 50 ML* 50 ML IVPB ONE (13:00)
--- NOTE | 2018-09-25 15:34 | CONSULT ---
Subjective Date of Service: 09/25/18 Interval History: Ms. Spencer is a 73 yo female with PMH significant for mitral valve prolapse, asthma, and diverticulitis who presented to the emergency room with complaints of abdominal pain and fever. She was found to have diverticulitis vs colon perferation. She was transferred to the ICU on 08/31/18 for possible aspiration pneumonitis. She had a cardiac arrest, required CPR, and was intubated. She was taken to the OR for an exploritory labarotomy and was found to have a perforated sigmoid colon with purulent peritonitis. S/P sigmoid colectomy. She returned to the OR on 09/03/18 and underwent an exploratory laparotomy, partial colon resection, end tranverse colostomy and ABD wound closure. 09/12/18 she underwent a tracheotomy. Attempts to wean to a trach collar have been limited due to anxiety. She was been weaned from the vent to trach collar during the day and vent support at night. She has had a complicated postoperative course. She developed skin breakdown to her buttocks during her hospitalization. According to the NSG notes she developed skin peeling to the right buttock on 09/19/18 and skin peeling to the coccyx and left buttock on 09/24/18. Patient seen and examined at bedside. Family History: Unchanged from Admission Social History: Unchanged from Admission Past Medical History: Unchanged from Admission Review of Systems - Measurements Intake and Output: Intake and Output Last 24 Hours 09/23/18 09/24/18 09/25/18 09/26/18 06:59 06:59 06:59 06:59 Intake Total 1383 2326 1830 50 Output Total 1775 1725 2470 420 Balance -392 131 -447 -370 Weight 151 lb 14.376 oz 144 lb 6.444 oz 148 lb 11.229 oz Intake: Oral 0 Tube Feeding 1063 2106 1610 Tube Feeding Flush Amount 200 140 160 50 NG Tube Irrigate Amount 120 80 60 Output: Wound Vac 200 100 Frost 1575 1325 2270 420 Liquid Stool 100 100 Colostomy 200 100 Tube Feeding Residual 0 Amount Wasted Other: Date of Last Bowel 09/24/18 09/25/18 09/25/18 Movement - Review of Systems General Comments: Unable to perform full ROS and patient is nonverbal with a trach. Able to answer some questions by nodding her head. Constitutional Symptoms: Negative: Fever, Other - Chills Dermatology: Positive: Other - Skin breakdown to buttocks Objective Active Medications: Acetaminophen (Tylenol Adult Liq*) 650 mg NG TUBE Q6H EMIL Albuterol (Ventolin 2.5 Mg/3 Ml Neb.Dang*) 2.5 mg INH Q6H PRN Reason: WHEEZING Alprazolam (Xanax Tab*) 0.25 mg PO Q8H PRN Reason: AGITATION/ANXIETY Atorvastatin Calcium (Lipitor*) 20 mg PO 2100 EMIL Budesonide/Formoterol Fumarate (Symbicort 160/4.5 (Nf)) 2 puff INH BID EMIL; Protocol Famotidine (Pepcid Susp 8mg/Ml) 20 mg G TUBE DAILY [facility] Fluoxetine HCl (Prozac Cap*) 20 mg PO DAILY [facility] Furosemide (Lasix Iv*) 40 mg IV SLOW PU 0800,1700 [facility] Heparin Sodium (Porcine) (Heparin Vial(*)) 5,000 units SUBCUT Q8HR [facility] Heparin Sodium (Porcine) (Heparin Flush Picc/Ml/Cvc(*)) 1 - 3 ml FLUSH BID [facility] ; Protocol Ibuprofen (Motrin Liq Adult*) 600 mg PO TID PRN Reason: DISCOMFORT Melatonin (Melatonin) 3 mg PO BEDTIME [facility] Metoprolol Tartrate (Lopressor Tab*) 12.5 mg PO Q12HR [facility] Multivitamins (Theragran W/Minerals Liq*) 15 ml PO DAILY [facility] Nystatin (Nystatin Top Powder*) 1 applic TOPICAL BID [facility] Oxycodone HCl (Roxycodone Tab*) 5 mg PO Q4H PRN Reason: PAIN Quetiapine Fumarate (Seroquel Tab*) 25 mg PO DAILY [facility] Vital Signs 09/25/18 09/25/18 09/25/18 11:01 12:00 13:00 Temperature 98.2 F 98.4 F Pulse Rate 84 91 83 Respiratory 30 32 Rate Blood Pressure 136/74 139/77 (mmHg) O2 Sat by Pulse 98 88 95 Oximetry Oxygen Devices in Use Now: Tracheostomy Collar Appearance: NAD, laying in bed Ears/Nose/Mouth/Throat: Mucous Membranes Moist Respiratory: Symmetrical Chest Expansion and Respiratory Effort Skin: - - See skin note below Neurological: - - Alert Lines/Tubes/Other Access: Clean, Dry and Intact Frost, Clean, Dry and Intact Tracheostomy, Clean, Dry and Intact PICC Line Nutrition: Taking PO's Result Diagrams: 09/26/18 04:46 09/26/18 04:46 Microbiology and Other Data: Microbiology 09/15/18 11:45 Aerobic Blood Culture - Final Blood Line No Growth Day 5 Anaerobic Blood Culture - Final No Growth Day 5 09/10/18 16:07 Aerobic Blood Culture - Final Blood Venous No Growth Day 5 Anaerobic Blood Culture - Final No Growth Day 5 09/10/18 16:19 Blood Culture - Final Blood Venous No Growth Day 5 09/10/18 21:40 Aerobic Blood Culture - Final Blood Line Staphylococcus Epidermidis Anaerobic Blood Culture - Final Staphylococcus Epidermidis Blood MRSA/MSSA (PCR) - Final Mrsa Negative S.aureus Negative 09/01/18 16:00 Aerobic Blood Culture - Final Blood Venous No Growth Day 5 Anaerobic Blood Culture - Final No Growth Day 5 08/31/18 21:10 Gram Stain - Final Peritoneal Fluid Body Fluid Culture - Final Clostridium Perfringens Christiana Albicans Enterococcus Avium Skin and Soft Tissue MRSA/MSSA (PCR - Final Mrsa Negative S.aureus Negative 08/31/18 21:10 Anaerobic Culture - Final Body Fluid - Peritoneal Eubacterium Species Clostridium Innocuum 08/29/18 10:10 Aerobic Blood Culture - Final Blood Venous No Growth Day 5 Anaerobic Blood Culture - Final No Growth Day 5 08/29/18 10:10 Aerobic Blood Culture - Final Blood Venous No Growth Day 5 Anaerobic Blood Culture - Final No Growth Day 5 08/31/18 01:09 Urine Culture - Final Urine No Growth (<1,000 CFU/mL) Skin Deviation Note - Skin Deviation Findings Buttocks - There is peeling skin to the sacrum and bilateral buttocks. There is blanchable erythema to the left buttock. The surrounding skin is intact. There is no drainage noted. The area of peeling skin to the coccyx and right buttock measures, 8 cm x 2 cm x 0.1 cm. There is no open skin. The area of blanchable erythema to the left buttock measures, 6.5 cm x 4 cm. Assessment/Plan: Ms. Spencer is a 73 yo female with PMH significant for mitral valve prolapse, asthma, and diverticulitis who presented to the emergency room with complaints of abdominal pain and fever. She was taken to the OR for an exploritory labarotomy and was found to have a perforated sigmoid colon with purulent peritonitis. S/P sigmoid colectomy, partial colon resection, end tranverse colostomy and ABD wound closure, and tracheotomy. She has had a complicated postoperative course and remains in the ICU with vent support at night. 1. Skin breakdown to buttocks. Suspect this is multifactorial: shearing, pressure and moisture. Recommend washing the area with soap and water daily, ensuring the skin is patted dry (do not rub the area). Can apply barrier cream to the buttocks as needed. Recommend frequent turning and repositioning. Do not use a "pharmaceutical analyst pad" and only a draw sheet on the bed. Consider checking a prealbumin level to evaluate nutritional status. 2. Diet. Full liquid, honey thick liquids. 3. Code Status. Full Code. 4. Disposition. Inpatient, disposition per primary medicine team. TIME SPENT: Time for this wound consultation was 20 minutes and 10 minutes was spent with the patient assessing the skin breakdown, measuring the the areas, and photographing. Wound Problem/Plan Is Patient a Wound Clinic Patient: No Attending: Ninoska Minaya
[2018-09-25] MEDS: oxyCODONE TAB* 5 MG TAB PO PRN (19:52)
[2018-09-25] MEDS: Atorvastatin* 20 MG TAB PO SCH (19:52)
[2018-09-25] MEDS: Melatonin 3 MG TAB PO SCH (19:52)
[2018-09-25] MEDS: Nystatin TOP POWDER* 15 GM BTL TOPICAL SCH (19:53)
[2018-09-26] MEDS: ALPRAZolam TAB* 0.25 MG PO PRN (00:27)
[2018-09-26] MEDS: Ibuprofen ADULT LIQ* 600 MG/30 ML UDC PO PRN ×2 (00:27→23:20)
[2018-09-26] MEDS: Acetaminophen ADULT LIQ* 650 MG/20.3 ML UDC NG TUBE SCH ×4 (05:01→23:21)
[2018-09-26] MEDS: Heparin VIAL(*) 5000 UNITS/ML VIAL (FIVE THOUSAND) SUBCUT SCH ×3 (05:01→21:32)
[2018-09-26 05:22] LABS: BUN/Creatinine Ratio 52.6 (8-20); Calcium 8.3 mg/dL (8.6-10.3); EGFR African American 200.9 (>60); Magnesium 2.1 mg/dL (1.9-2.7); Potassium 4.2 mmol/L (3.5-5.0)
[2018-09-26 05:53] LABS: Hematocrit 24 % (35-47); Hemoglobin 7.3 g/dL (12.0-16.0); Mean Corpuscular HGB Conc 31 g/dL (31-36); Mean Corpuscular Hemoglobin 25 pg (27-31); Mean Corpuscular Volume 83 fL (80-97); Mean Platelet Volume 7.5 fL (7.4-10.4); Platelet Count 636 10^3/uL (150-450); Red Blood Count 2.88 10^6 /uL (3.70-4.87); Red Cell Distribution Width 17 % (10-15); White Blood Count 9.9 10^3/uL (3.5-10.8)
[2018-09-26] MEDS: PTO:Budesonide/Formote 160/4.5(NF) MDI INH SCH (08:04)
--- NOTE | 2018-09-26 08:31 | PN ---
Date of Service: 09/26/18 - HD 29 Critical Care Services: 73 yo F presented to ED on 08/29 with diffuse abdominal pain. Recently diagnosed with diverticulitis as outpatient (by CT) and completed a course of PO Cipro 5 days prior to presentation. Pain initially improved but then returned prompting presentation to ED. On evaluation in ED AVSS. Exam notable for abdomen soft, mildly distended with diffuse tenderness and guarding. WBC 8.4. Lactic acid 2.5. CT of abdomen shows foci of free intraperitoneal air and mucosal thickening of sigmoid colon. Started on IV abx. Surgery consulted. Admitted to medical service. 08/30: feeling a bit better. WBC 11.3 08/31: (+) BM. pain improved. GG Enema ordered given large stool burden on CT - no obstruction distally.. That afternoon vomitted grape popsicle residue with subsequent tachycardia (to 170s) and tachypnea. Transferred to ICU for adenosine; rhythm atrial arrhythmia. Given Diltiazem with good effect. Bolused 1LNS. Requiring 15Lpm oximask for tachypnea and accessory muscle use. Improved with trial of NIV. [place] likely to be an aspiration pneumonitis. Started on Levophed and vasopressin to maintain adequate BP. Started on PPI for coffee ground fluid from NGT. Became unresponsive and pulseless, requiring <5min CPR before ROSC. Intubated, CVC and amy placed. Taken to OR with surgery for exploratory laparotomy; found to have perforated sigmoid colon with purulent peritonitis. Sigmoid colectomy and washout done. Abd left open with Wound VAC in place. 09/01: sedated on vent. remains on levophed and vasopressin. CXR with rightsided hazy infiltrates, likely aspiration pneumonitis. Bolused for low UOP and persistent metabolic acidosis. In evening developed Aflutter with HR 150s. started on Amiodarone gtt. Levophed changed to Rocky. Improved after IVF bolus; UOP picked up as well. Requiring increased vent support. 09/02: repeat washout and second look with surgery. Abd left open with wound vac in place. weaned down to just vasopressin. 09/03: Bronch for mucus plug. Cardiac echo shows markedly dilated right heart but duplex of legs negative for DVT. Too unstable for CTA at this time. Empiric coverage for Lex added. Went to OR for Ex lap, partial colon resection, end transverse colostomy and abdominal fascial closure with biologic mesh. Superficial wound vac placed over alloderm. 09/04: started diruese for volume overload and continued O2 demand. 09/05: O2 demand improved after recruitment maneuvers. Started trickle TF. Starting sedation vacations. 09/06: TF advancing to goal. Remains sedated despite sedation hold. 09/07: starting to awaken. Persistent leukocytosis. 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 09/08: (+) bowel function. VAC changed. Awake and following commands but minimal movement of limbs. tolerating minimal vent support. Neurology consulted for EMG and nerve conduction studies. 09/09: ENT consulted for tracheostomy 09/10: requiring IVF bolus for episode of hypotension. 09/11: On Precedex gtt for anxiety. Seroquel started. 09/12: Trach done 09/13: EMG consistent with critical illness myopathy. Pending Ach-r to rule out myathsenia gravis given additional finding of ptosis. 09/15: Trach collar during day, vent support at night. Abx course completed. Plan for 48 hr abx holiday. Started metoprolol for HTN 09/16: Trach collar limited by anxiety. 09/18: Tc again limited by anxiety. Started on SSRI for depression. continued benzo's for anxiety. 09/21: tolerating > 12 hrs Tc. OOB to chair. 09/23: failed swallow eval. tolerating PMV. possible need for vent rehab. 09/25: Passed swallow eval for honey thick liquids. PMV trials limited by anxiety; seroquel added 09/26: no overnight events Vital Signs: Temp Pulse Resp BP SpO2 FiO2 98.8 F 75 26 126/63 98 30 09/25/18 23:45 09/26/18 06:00 09/26/18 00:27 09/25/18 23:45 09/26/18 06:00 09/26 08:06 Physical Exam: Gen: sleeping comfortably. awakens to voice HEENT: trach in place Lungs: CTAB Cardiac: RRR Abdomen: soft, NTND Extremities: edematous Neuro: remains weak. oriented. Fluid Balance (Past 24 Hours): I= O= Net Intake & Output 09/24/18 09/25/18 09/26/18 09/27/18 06:59 06:59 06:59 06:59 Intake Total 2326 1830 998 Output Total 1725 2470 2810 Balance 888 -966 -5979 Weight 144 lb 6.444 oz 148 lb 11.229 oz 145 lb 15.136 oz Intake: Oral 0 Tube Feeding 2106 1610 758 Tube Feeding Flush Amount 140 160 240 NG Tube Irrigate Amount 80 60 Output: Wound Vac 200 100 75 Frost 1325 2270 2735 Liquid Stool 100 100 Colostomy 100 Tube Feeding Residual 0 Amount Wasted Other: Date of Last Bowel 09/24/18 09/25/18 09/25/18 Movement # Bowel Movements 1 Estimated Stool Amount Small Labs: Laboratory Results - last 24 hr 09/26/18 09/26/18 04:46 04:46 WBC 9.9 RBC 2.88 L Hgb 7.3 L Hct 24 L MCV 83 MCH 25 L MCHC 31 RDW 17 H Plt Count 636 H MPV 7.5 Sodium 137 Potassium 4.2 Chloride 98 L Carbon Dioxide 32 Anion Gap 7 BUN 20 Creatinine 0.38 L Est GFR ( Amer) 200.9 Est GFR (Non-Af Amer) 166.0 BUN/Creatinine Ratio 52.6 H Glucose 125 H Calcium 8.3 L Magnesium 2.1 Studies: 08/31 CT CAP - free air unchanged. increased ascites. distal colonic diverticulosis. Bilateral pleural effusions and associated lung volume loss. GERD. 08/31 AXR - residual contrast noted in transverse colon. no obstructive pattern identified. 08/31 CXR - L> R basilar atelectasis. COPD. cardiomegaly. 08/31 GG enema - no obvious obstruction. large amount of stool present throughout colon. 08/29 CT abd - free intraperitoneal air, large amount of stool in colon. mucosal thickening of sigmoid colon noted. Nutrition: tolerating TF. nectar thick liquids for comfort Impression: 73 yo F who presented to the ED on 08/29 with perforated sigmoid diverticulitis. She failed nonoperative management and required an ex lap with sigmoidectomy and subsequent return to OR for ostomy and closure. 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 tonight plan to wait until 8 pm -- nocturnal seroquel added to provide additional coverage for anxiety which is limiting vent weaning. -- continue to encourage PMV use -- will need vent weaning facility Home meds: Budesonide/Formoterol, Nasacort spray, Albuterol Gastrointestinal: (1) Acute perforated sigmoid diverticulitis s/p sigmoidectomy and Harmans -- diet: TF and honey thickened liquids PO -- bowel regimen: None -- ulcer prophylaxis: Pepcid -- General surgery following Home meds: Pepcid Endocrine: No acute issues -- monitor BGs Home meds: Premarin Renal: (1) Hypervolemia/volume overload -- UOP: 117 ml/hr -- BMP Cr 0.38 from 0.35 Na 137 from 136 K 4.2 Ca 8.3, replace Mag 2.1 Phos pending -- IVF: HL -- Lasix BID for diuresis to address peripheral edema Home meds: None Infectious disease: (1) Severe sepsis, resolved; (2) Sigmoid diverticulitis, s/ p resection -- Tmax 98.8 -- WBC 9.9 from 9.4 -- Micro 6/1 blood negative 09/10 blood staph epidermidis, contaminant 08/31 Peritoneal clostridium perfringens, lex, enterococcus urine negative 08/29 blood negative -- ABX course completed Home meds: None Neurologic: (1) Postoperative pain; (2) Critical illness polyneuromyopathy; (3 ) Anxiety -- Tylenol scheduled given continued need for oxycodone -- PRN Ibuprofen for discomfort -- Oxycodone as needed for pain control, attempting to wean off -- PRN Xanax for anxiety -- Seroquel added (25 QAM and 100 QHS) for persistent anxiety regarding trach collar and passy k[place] valve trials -- Prozac for depression, dose increased on 09/25 -- Melatonin for sleep, melatonin dose increased -- PT OT following Home meds: Tylenol, Melatonin Hematological: (1) Mild thrombocytosis -- Hgb 7.3 from 7.5 -- Plt 636 from 591, follow trend. start ASA if >1000 -- DVT prophylaxis: SQ Heparin Home meds: None Metabolic: (1) lactic acidosis on admission, now resolved Home meds: None Other: -- MVI Home meds: MVI Deep vein thrombosis prophylaxis: SQ Heparin Dietary: Pepcid Condition: critical Prognosis: guarded Code status: full Disposition: continue ICU care. social work working on [facility] Cumulative time spent in the care of this patient (excluding any procedure time) : at least 30 minutes. Patient care included clinical interview (with patient and/or family), bedside exam of the patient, review of labs, x-rays, and other ancillary data, coordination of (respiratory, nursing care, review of patient's records, discussion regarding patients management with involved consultants, primary physician, pharmacists, and other healthcare personnel (dietary, case management , physical/occupational therapy etc.) Critical Care Time: 30 min Critical Care Time:
[2018-09-26] MEDS: Furosemide IV* 10 MG/ML VIAL (40 MG) IV SLOW PU SCH ×2 (08:33→16:47)
[2018-09-26] MEDS: Famotidine SUSP ORALSYR 8 MG/ML G TUBE SCH (08:43)
[2018-09-26] MEDS: QUEtiapine TAB* 25 MG PO SCH (08:44)
[2018-09-26] MEDS: Metoprolol Tartrate TAB* 25 MG PO SCH ×2 (08:44→20:28)
[2018-09-26] MEDS: Multivitamins ADULT w/MIN LIQ* 15 ML UDC PO SCH (08:44)
[2018-09-26] MEDS: FLUoxetine CAP* 20 MG PO SCH (08:44)
[2018-09-26] MEDS ORDERED: Metoprolol Tartrate TAB* 25 MG PO SCH (09:00)
[2018-09-26] MEDS: Nystatin TOP POWDER* 15 GM BTL TOPICAL SCH ×3 (11:41→21:32)
--- NOTE | 2018-09-26 17:20 | PN ---
Progress Note - Progress Note Date of Service: 09/26/18 SOAP: Subjective: Doing well Tolerating tube feeds Trach collar during day, vent at night Objective: Temp Pulse Resp BP Pulse Ox 98.6 F 96 36 100/64 96 09/26/18 17:00 09/26/18 17:00 09/26/18 17:00 09/26/18 16:00 09/26/18 17:00 PEX: Abd is soft and slightly distended. Ostomy pink with thick stool Incision open with mesh, granulation tissue forming, wound vac changed Assessment: S/P sigmoid colectomy-colostomy Plan: Vent wean Tube feeds Wound vac
[2018-09-26] MEDS: Melatonin 3 MG TAB PO SCH (20:27)
[2018-09-26] MEDS: QUEtiapine TAB* 100 MG PO SCH (20:28)
[2018-09-26] MEDS: Atorvastatin* 20 MG TAB PO SCH (20:28)
[2018-09-26] MEDS: Albuterol 2.5 MG/3 ML NEB.SOL* (0.083%) INH PRN (20:56)
[2018-09-27] MEDS: oxyCODONE TAB* 5 MG TAB PO PRN ×4 (02:02→23:36)
[2018-09-27 04:40] LABS: Hematocrit 23 % (35-47); Hemoglobin 7.5 g/dL (12.0-16.0); Mean Corpuscular HGB Conc 32 g/dL (31-36); Mean Corpuscular Hemoglobin 27 pg (27-31); Mean Corpuscular Volume 82 fL (80-97); Mean Platelet Volume 6.9 fL (7.4-10.4); Platelet Count 659 10^3/uL (150-450); Red Blood Count 2.81 10^6 /uL (3.70-4.87); Red Cell Distribution Width 17 % (10-15); White Blood Count 10.6 10^3/uL (3.5-10.8)
[2018-09-27 04:55] LABS: BUN/Creatinine Ratio 56.8 (8-20); Calcium 8.4 mg/dL (8.6-10.3); EGFR African American 207.1 (>60); EGFR Non-African American 171.2 (>60); Magnesium 2.1 mg/dL (1.9-2.7)
[2018-09-27] MEDS: Acetaminophen ADULT LIQ* 650 MG/20.3 ML UDC NG TUBE SCH ×4 (05:34→23:36)
[2018-09-27] MEDS: Heparin VIAL(*) 5000 UNITS/ML VIAL (FIVE THOUSAND) SUBCUT SCH ×3 (05:35→20:08)
[2018-09-27] MEDS: Furosemide IV* 10 MG/ML VIAL (40 MG) IV SLOW PU SCH ×2 (08:51→17:34)
[2018-09-27] MEDS: Famotidine SUSP ORALSYR 8 MG/ML G TUBE SCH (09:03)
[2018-09-27] MEDS: Nystatin TOP POWDER* 15 GM BTL TOPICAL SCH ×2 (09:03→20:08)
[2018-09-27] MEDS: Metoprolol Tartrate TAB* 25 MG PO SCH ×2 (09:03→20:05)
[2018-09-27] MEDS: Multivitamins ADULT w/MIN LIQ* 15 ML UDC PO SCH (09:03)
[2018-09-27] MEDS: FLUoxetine CAP* 20 MG PO SCH (09:05)
[2018-09-27] MEDS: QUEtiapine TAB* 25 MG PO SCH (09:05)
--- NOTE | 2018-09-27 10:02 | PN ---
Date of Service: 09/27/18 - HD 30 Critical Care Services: 73 yo F presented to ED on 08/29 with diffuse abdominal pain. Recently diagnosed with diverticulitis as outpatient (by CT) and completed a course of PO Cipro 5 days prior to presentation. Pain initially improved but then returned prompting presentation to ED. On evaluation in ED AVSS. Exam notable for abdomen soft, mildly distended with diffuse tenderness and guarding. WBC 8.4. Lactic acid 2.5. CT of abdomen shows foci of free intraperitoneal air and mucosal thickening of sigmoid colon. Started on IV abx. Surgery consulted. Admitted to medical service. 08/30: feeling a bit better. WBC 11.3 08/31: (+) BM. pain improved. GG Enema ordered given large stool burden on CT - no obstruction distally.. That afternoon vomitted grape popsicle residue with subsequent tachycardia (to 170s) and tachypnea. Transferred to ICU for adenosine; rhythm atrial arrhythmia. Given Diltiazem with good effect. Bolused 1LNS. Requiring 15Lpm oximask for tachypnea and accessory muscle use. Improved with trial of NIV. [place] likely to be an aspiration pneumonitis. Started on Levophed and vasopressin to maintain adequate BP. Started on PPI for coffee ground fluid from NGT. Became unresponsive and pulseless, requiring <5min CPR before ROSC. Intubated, CVC and amy placed. Taken to OR with surgery for exploratory laparotomy; found to have perforated sigmoid colon with purulent peritonitis. Sigmoid colectomy and washout done. Abd left open with Wound VAC in place. 09/01: sedated on vent. remains on levophed and vasopressin. CXR with rightsided hazy infiltrates, likely aspiration pneumonitis. Bolused for low UOP and persistent metabolic acidosis. In evening developed Aflutter with HR 150s. started on Amiodarone gtt. Levophed changed to Rocky. Improved after IVF bolus; UOP picked up as well. Requiring increased vent support. 09/02: repeat washout and second look with surgery. Abd left open with wound vac in place. weaned down to just vasopressin. 09/03: Bronch for mucus plug. Cardiac echo shows markedly dilated right heart but duplex of legs negative for DVT. Too unstable for CTA at this time. Empiric coverage for Lex added. Went to OR for Ex lap, partial colon resection, end transverse colostomy and abdominal fascial closure with biologic mesh. Superficial wound vac placed over alloderm. 09/04: started diruese for volume overload and continued O2 demand. 09/05: O2 demand improved after recruitment maneuvers. Started trickle TF. Starting sedation vacations. 09/06: TF advancing to goal. Remains sedated despite sedation hold. 09/07: starting to awaken. Persistent leukocytosis. 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 09/08: (+) bowel function. VAC changed. Awake and following commands but minimal movement of limbs. tolerating minimal vent support. Neurology consulted for EMG and nerve conduction studies. 09/09: ENT consulted for tracheostomy 09/10: requiring IVF bolus for episode of hypotension. 09/11: On Precedex gtt for anxiety. Seroquel started. 09/12: Trach done 09/13: EMG consistent with critical illness myopathy. Pending Ach-r to rule out myathsenia gravis given additional finding of ptosis. 09/15: Trach collar during day, vent support at night. Abx course completed. Plan for 48 hr abx holiday. Started metoprolol for HTN 09/16: Trach collar limited by anxiety. 09/18: Tc again limited by anxiety. Started on SSRI for depression. continued benzo's for anxiety. 09/21: tolerating > 12 hrs Tc. OOB to chair. 09/23: tolerating PMV. possible need for vent rehab. 09/25: Passed swallow eval for honey thick liquids. PMV trials limited by anxiety; seroquel added 09/26: Nocturnal vent support start time pushed back to 8pm. Case management sent packets to additional facilities. 09/27: No overnight events Vital Signs: Temp Pulse Resp BP SpO2 FiO2 97.7 F 81 23 108/61 98 30 09/27/18 06:00 09/27/18 06:00 09/27/18 06:00 09/27/18 04:00 09/27/18 06:00 09/27 00:15 Physical Exam: Gen: sitting up in chair HEENT: trach in place Lungs: nonlabored Cardiac: RRR Abdomen: nondistended Extremities: warm, dry, edematous Neuro: alert and oriented. Fluid Balance (Past 24 Hours): I= O= Net Intake & Output 09/25/18 09/26/18 09/27/18 09/28/18 06:59 06:59 06:59 06:59 Intake Total 4730 183 6367 Output Total 2470 2810 995 Balance -640 -1812 134 Weight 148 lb 11.229 oz 145 lb 15.136 oz Intake: Oral 0 Tube Feeding 8509 401 4487 Tube Feeding Flush Amount 160 240 120 NG Tube Irrigate Amount 60 Output: Wound Vac 100 75 0 Frost 2270 2735 995 Liquid Stool 100 Tube Feeding Residual 0 0 Amount Wasted Other: Date of Last Bowel 09/25/18 09/25/18 Movement # Bowel Movements 1 Estimated Stool Amount Small Labs: Laboratory Results - last 24 hr 09/27/18 09/27/18 04:30 04:30 WBC 10.6 RBC 2.81 L Hgb 7.5 L Hct 23 L MCV 82 MCH 27 MCHC 32 RDW 17 H Plt Count 659 H MPV 6.9 L Sodium 137 Potassium 4.0 Chloride 97 L Carbon Dioxide 34 H Anion Gap 6 BUN 21 Creatinine 0.37 L Est GFR ( Amer) 207.1 Est GFR (Non-Af Amer) 171.2 BUN/Creatinine Ratio 56.8 H Glucose 133 H Calcium 8.4 L Magnesium 2.1 Studies: 08/31 CT CAP - free air unchanged. increased ascites. distal colonic diverticulosis. Bilateral pleural effusions and associated lung volume loss. GERD. 08/31 AXR - residual contrast noted in transverse colon. no obstructive pattern identified. 08/31 CXR - L> R basilar atelectasis. COPD. cardiomegaly. 08/31 GG enema - no obvious obstruction. large amount of stool present throughout colon. 08/29 CT abd - free intraperitoneal air, large amount of stool in colon. mucosal thickening of sigmoid colon noted. Nutrition: tolerating TF. nectar thick liquids for comfort Impression: 73 yo F who presented to the ED on 08/29 with perforated sigmoid diverticulitis. She failed nonoperative management and required an ex lap with sigmoidectomy and subsequent return to OR for ostomy and closure. 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 tonight plan to wait until 8 pm -- nocturnal seroquel added to provide additional coverage for anxiety which is limiting vent weaning. -- continue to encourage PMV use -- will need vent weaning facility Home meds: Budesonide/Formoterol, Nasacort spray, Albuterol Gastrointestinal: (1) Acute perforated sigmoid diverticulitis s/p sigmoidectomy and Harmans -- diet: TF and honey thickened liquids PO -- bowel regimen: None -- ulcer prophylaxis: Pepcid -- General surgery following Home meds: Pepcid Endocrine: No acute issues -- monitor BGs Home meds: Premarin Renal: (1) Hypervolemia/volume overload -- UOP: 40 ml/hr -- BMP Cr 0.37 from 0.38 Na 137 K 4.0 Ca 8.4, replace Mag 2.1 -- IVF: HL -- Lasix BID for diuresis to address peripheral edema Home meds: None Infectious disease: (1) Severe sepsis, resolved; (2) Sigmoid diverticulitis, s/ p resection -- Tmax 98.8 -- WBC 10.6 from 9.9 -- Micro 6/1 blood negative 09/10 blood staph epidermidis, contaminant 08/31 Peritoneal clostridium perfringens, lex, enterococcus urine negative 08/29 blood negative -- ABX course completed Home meds: None Neurologic: (1) Postoperative pain; (2) Critical illness polyneuromyopathy; (3 ) Anxiety -- Tylenol scheduled given continued need for oxycodone -- PRN Ibuprofen for discomfort -- Oxycodone as needed for pain control, attempting to wean off -- PRN Xanax for anxiety -- Seroquel added (25 QAM and 100 QHS) for persistent anxiety regarding trach collar and passy k[place] valve trials -- Prozac for depression, dose increased on 09/25 -- Melatonin for sleep, melatonin dose increased -- PT OT following Home meds: Tylenol, Melatonin Hematological: (1) Mild thrombocytosis -- Hgb 7.5 from 7.3 -- Plt 659 from 636, follow trend. start ASA if >1000 -- DVT prophylaxis: SQ Heparin Home meds: None Metabolic: (1) lactic acidosis on admission, now resolved Home meds: None Other: -- MVI Home meds: MVI Deep vein thrombosis prophylaxis: SQ Heparin Dietary: Pepcid Condition: critical Prognosis: guarded Code status: full Disposition: continue ICU care. social work working on [facility] Cumulative time spent in the care of this patient (excluding any procedure time) : at least 30 minutes. Patient care included clinical interview (with patient and/or family), bedside exam of the patient, review of labs, x-rays, and other ancillary data, coordination of (respiratory, nursing care, review of patient's records, discussion regarding patients management with involved consultants, primary physician, pharmacists, and other healthcare personnel (dietary, case management , physical/occupational therapy etc.) Critical Care Time: 30 min
[2018-09-27] MEDS: PTO:Budesonide/Formote 160/4.5(NF) MDI INH SCH (11:43)
[2018-09-27] MEDS: Melatonin 3 MG TAB PO SCH (20:05)
[2018-09-27] MEDS: QUEtiapine TAB* 100 MG PO SCH (20:05)
[2018-09-27] MEDS: Atorvastatin* 20 MG TAB PO SCH (20:06)
[2018-09-27] MEDS: ALPRAZolam TAB* 0.25 MG PO PRN (23:36)
[2018-09-28] MEDS: Ibuprofen ADULT LIQ* 600 MG/30 ML UDC PO PRN (04:54)
[2018-09-28] MEDS: oxyCODONE TAB* 5 MG TAB PO PRN (04:54)
[2018-09-28 05:58] LABS: Hematocrit 24 % (35-47); Hemoglobin 7.3 g/dL (12.0-16.0); Mean Corpuscular HGB Conc 31 g/dL (31-36); Mean Corpuscular Hemoglobin 25 pg (27-31); Mean Corpuscular Volume 82 fL (80-97); Mean Platelet Volume 6.9 fL (7.4-10.4); Platelet Count 625 10^3/uL (150-450); Red Cell Distribution Width 17 % (10-15); White Blood Count 14.9 10^3/uL (3.5-10.8)
[2018-09-28 06:07] LABS: BUN/Creatinine Ratio 57.9 (8-20); Calcium 8.6 mg/dL (8.6-10.3); EGFR African American 200.9 (>60); Potassium 4.2 mmol/L (3.5-5.0)
[2018-09-28] MEDS: Heparin VIAL(*) 5000 UNITS/ML VIAL (FIVE THOUSAND) SUBCUT SCH ×2 (06:35→17:00)
[2018-09-28] MEDS: Acetaminophen ADULT LIQ* 650 MG/20.3 ML UDC NG TUBE SCH ×3 (06:35→18:13)
[2018-09-28] MEDS: PTO:Budesonide/Formote 160/4.5(NF) MDI INH SCH ×2 (07:32→19:18)
[2018-09-28] MEDS: Metoprolol Tartrate TAB* 25 MG PO SCH ×2 (09:23→20:54)
[2018-09-28] MEDS: Furosemide IV* 10 MG/ML VIAL (40 MG) IV SLOW PU SCH ×2 (09:23→17:00)
[2018-09-28] MEDS: Multivitamins ADULT w/MIN LIQ* 15 ML UDC PO SCH (09:23)
[2018-09-28] MEDS: Nystatin TOP POWDER* 15 GM BTL TOPICAL SCH ×2 (09:25→20:53)
[2018-09-28] MEDS: FLUoxetine CAP* 20 MG PO SCH (09:25)
[2018-09-28] MEDS: QUEtiapine TAB* 25 MG PO SCH (09:26)
[2018-09-28] MEDS: Famotidine SUSP ORALSYR 8 MG/ML G TUBE SCH (09:30)
--- NOTE | 2018-09-28 11:11 | PN ---
Progress Note - Progress Note Date of Service: 09/28/18 SOAP: Subjective: Comfortable-awake and alert Tolerating tube feed Fever overnight Objective: Temp Pulse Resp BP Pulse Ox 100.6 F 93 23 108/55 96 09/28/18 05:00 09/28/18 05:00 09/28/18 05:00 09/28/18 04:54 09/28/18 05:00 Intake & Output 09/26/18 09/27/18 09/28/18 09/29/18 06:59 06:59 06:59 06:59 Intake Total 998 1129 1990 Output Total 2810 995 1460 Balance -1812 134 531 Weight 145 lb 15.136 oz 151 lb 7.437 oz Intake: Oral 0 Tube Feeding 758 1009 1916 Tube Feeding Flush Amount 240 120 75 Output: Wound Vac 75 0 Frost 2735 995 1460 Tube Feeding Residual 0 0 Amount Wasted Other: Date of Last Bowel 09/25/18 Movement # Bowel Movements 1 Estimated Stool Amount Small PEX: Comfortable Abd is soft and slightly distended. Bowel sounds are present. Ostomy pink. Incision clean and granulating-wound vac changed Laboratory Results - last 24 hr 09/28/18 09/28/18 05:35 05:35 WBC 14.9 H RBC 2.90 L Hgb 7.3 L Hct 24 L MCV 82 MCH 25 L MCHC 31 RDW 17 H Plt Count 625 H MPV 6.9 L Sodium 137 Potassium 4.2 Chloride 97 L Carbon Dioxide 36 H Anion Gap 4 BUN 22 Creatinine 0.38 L Est GFR ( Amer) 200.9 Est GFR (Non-Af Amer) 166.0 BUN/Creatinine Ratio 57.9 H Glucose 171 H Calcium 8.6 Magnesium 2.0 S/P exlap sigmoid colon resection with colostomy--perforated sigmoid diverticula Vent dependence Fever, leukocytosis-new PLAN: Tube feeds Vent wean Fever work-up--if routine workup negative, can obtain CT Abd/Pelvis to rule out abscess, however intra-abdominal source probably less likely this far out from surgery with her tolerating tube feeds, off antibiotics, and doing well otherwise the last few weeks. Discussed with Dr. Hernandez
[2018-09-28] MEDS ORDERED: oxyCODONE TAB* 5 MG TAB PO PRN (11:28)
--- NOTE | 2018-09-28 11:33 | PN ---
Date of Service: 09/28/18 - HD 31 Critical Care Services: 73 yo F presented to ED on 08/29 with diffuse abdominal pain. Recently diagnosed with diverticulitis as outpatient (by CT) and completed a course of PO Cipro 5 days prior to presentation. Pain initially improved but then returned prompting presentation to ED. On evaluation in ED AVSS. Exam notable for abdomen soft, mildly distended with diffuse tenderness and guarding. WBC 8.4. Lactic acid 2.5. CT of abdomen shows foci of free intraperitoneal air and mucosal thickening of sigmoid colon. Started on IV abx. Surgery consulted. Admitted to medical service. 08/30: feeling a bit better. WBC 11.3 08/31: (+) BM. pain improved. GG Enema ordered given large stool burden on CT - no obstruction distally.. That afternoon vomitted grape popsicle residue with subsequent tachycardia (to 170s) and tachypnea. Transferred to ICU for adenosine; rhythm atrial arrhythmia. Given Diltiazem with good effect. Bolused 1LNS. Requiring 15Lpm oximask for tachypnea and accessory muscle use. Improved with trial of NIV. [place] likely to be an aspiration pneumonitis. Started on Levophed and vasopressin to maintain adequate BP. Started on PPI for coffee ground fluid from NGT. Became unresponsive and pulseless, requiring <5min CPR before ROSC. Intubated, CVC and amy placed. Taken to OR with surgery for exploratory laparotomy; found to have perforated sigmoid colon with purulent peritonitis. Sigmoid colectomy and washout done. Abd left open with Wound VAC in place. 09/01: sedated on vent. remains on levophed and vasopressin. CXR with rightsided hazy infiltrates, likely aspiration pneumonitis. Bolused for low UOP and persistent metabolic acidosis. In evening developed Aflutter with HR 150s. started on Amiodarone gtt. Levophed changed to [place]. Improved after IVF bolus; UOP picked up as well. Requiring increased vent support. 09/02: repeat washout and second look with surgery. Abd left open with wound vac in place. weaned down to just vasopressin. 09/03: Bronch for mucus plug. Cardiac echo shows markedly dilated right heart but duplex of legs negative for DVT. Too unstable for CTA at this time. Empiric coverage for Lex added. Went to OR for Ex lap, partial colon resection, end transverse colostomy and abdominal fascial closure with biologic mesh. Superficial wound vac placed over alloderm. 09/04: started diruese for volume overload and continued O2 demand. 09/05: O2 demand improved after recruitment maneuvers. Started trickle TF. Starting sedation vacations. 09/06: TF advancing to goal. Remains sedated despite sedation hold. 09/07: starting to awaken. Persistent leukocytosis. 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 09/08: (+) bowel function. VAC changed. Awake and following commands but minimal movement of limbs. tolerating minimal vent support. Neurology consulted for EMG and nerve conduction studies. 09/09: ENT consulted for tracheostomy 09/10: requiring IVF bolus for episode of hypotension. 09/11: On Precedex gtt for anxiety. Seroquel started. 09/12: Trach done 09/13: EMG consistent with critical illness myopathy. Pending Ach-r to rule out myathsenia gravis given additional finding of ptosis. 09/15: Trach collar during day, vent support at night. Abx course completed. Plan for 48 hr abx holiday. Started metoprolol for HTN 09/16: Trach collar limited by anxiety. 09/18: Tc again limited by anxiety. Started on SSRI for depression. continued benzo's for anxiety. 09/21: tolerating > 12 hrs Tc. OOB to chair. 09/23: tolerating PMV. possible need for vent rehab. 09/25: Passed swallow eval for honey thick liquids. PMV trials limited by anxiety; seroquel added 09/26: Nocturnal vent support start time pushed back to 8pm. Case management sent packets to additional facilities. 09/27: Placed back to vent at 9:30 pm Vital Signs: Temp Pulse Resp BP SpO2 FiO2 100.6 F 93 23 108/55 96 30 09/28/18 05:00 09/28/18 05:00 09/28/18 05:00 09/28/18 04:54 09/28/18 05:00 09/28 08:30 Physical Exam: Gen: sleeping comfortably HEENT: trach in place Lungs: nonlabored breathing on trach collar Cardiac: RRR Abdomen: nondistended Extremities: warm, dry, edema stable compared to yesterday Neuro: awakens to stimulation. Fluid Balance (Past 24 Hours): I= O= Net Intake & Output 09/26/18 09/27/18 09/28/18 09/29/18 06:59 06:59 06:59 06:59 Intake Total 998 1129 1990 Output Total 2810 995 1460 Balance -1812 134 531 Weight 145 lb 15.136 oz 151 lb 7.437 oz Intake: Oral 0 Tube Feeding 758 1009 1916 Tube Feeding Flush Amount 240 120 75 Output: Wound Vac 75 0 Frost 2735 995 1460 Tube Feeding Residual 0 0 Amount Wasted Other: Date of Last Bowel 09/25/18 Movement # Bowel Movements 1 Estimated Stool Amount Small Labs: Laboratory Results - last 24 hr 09/28/18 09/28/18 05:35 05:35 WBC 14.9 H RBC 2.90 L Hgb 7.3 L Hct 24 L MCV 82 MCH 25 L MCHC 31 RDW 17 H Plt Count 625 H MPV 6.9 L Sodium 137 Potassium 4.2 Chloride 97 L Carbon Dioxide 36 H Anion Gap 4 BUN 22 Creatinine 0.38 L Est GFR ( Amer) 200.9 Est GFR (Non-Af Amer) 166.0 BUN/Creatinine Ratio 57.9 H Glucose 171 H Calcium 8.6 Magnesium 2.0 Studies: 09/28 CXR - ordered 08/31 CT CAP - free air unchanged. increased ascites. distal colonic diverticulosis. Bilateral pleural effusions and associated lung volume loss. GERD. 08/31 AXR - residual contrast noted in transverse colon. no obstructive pattern identified. 08/31 CXR - L> R basilar atelectasis. COPD. cardiomegaly. 08/31 GG enema - no obvious obstruction. large amount of stool present throughout colon. 08/29 CT abd - free intraperitoneal air, large amount of stool in colon. mucosal thickening of sigmoid colon noted. Nutrition: tolerating TF. nectar thick liquids for comfort Impression: 73 yo F who presented to the ED on 08/29 with perforated sigmoid diverticulitis. She failed nonoperative management and required an ex lap with sigmoidectomy and subsequent return to OR for ostomy and closure. 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 Plan: Cardiovascular: (1) Septic shock resolved; (2) Right ventricular overload on cardiac echo; (3) paroxysmal atrial fibrillation with RVR; (4) nonsustained short runs of Vtach; (5) hx of mitral valve prolapse -- HR 68-93 -- SBP 83-129 -- Telemetry -- Metoprolol -- Atorvastatin Home meds: Atorvastatin Pulmonary: (1) aspiration pneumonitis with acute hypoxic respiratory failure, resolved; (2) Acute respiratory failure with hypoxia secondary to critical illness neuromyopathy; (3) Chronic asthma -- RR 20-30 -- sats 93-100on trach collar -- daily trach collar, and nightly vent support -- Budesonide/Formoterol -- Albuterol as needed -- decreasing number of hours spent on vent at night; last night went on vent at 9:30 pm. tonight plan to wait until 10 pm and return to trach collar at 6am -- nocturnal seroquel to provide additional coverage for anxiety which is limiting vent weaning. -- continue to encourage PMV use -- will need vent weaning facility Home meds: Budesonide/Formoterol, Nasacort spray, Albuterol Gastrointestinal: (1) Acute perforated sigmoid diverticulitis s/p sigmoidectomy and [place] -- diet: TF and honey thickened liquids PO. encourage PO intake -- bowel regimen: None -- ulcer prophylaxis: Pepcid -- General surgery following. OK for wet to dry dressings at SNF if facility unable to accommodate VAC dressings Home meds: Pepcid Endocrine: No acute issues -- monitor BGs Home meds: Premarin Renal: (1) Hypervolemia/volume overload -- UOP: 61 ml/hr -- BMP Cr 0.38 from 0.37 Na 137 K 4.2 Ca 8.6 Mag 2.0 -- IVF: HL -- Lasix BID for diuresis to address peripheral edema Home meds: None Infectious disease: (1) Suspected sepsis; (2) Sigmoid diverticulitis, s/p resection -- Tmax 100.6 -- WBC 14.9 from 10.6 -- Micro 09/28 UA ordered blood ordered 09/15 blood negative 09/10 blood staph epidermidis, contaminant 08/31 Peritoneal clostridium perfringens, lex, enterococcus urine negative 08/29 blood negative -- ABX course completed Home meds: None Neurologic: (1) Postoperative pain; (2) Critical illness polyneuromyopathy; (3 ) Anxiety -- Tylenol scheduled given continued need for oxycodone -- PRN Ibuprofen for discomfort -- Oxycodone as needed for pain control, attempting to wean off. Dose halved. -- PRN Xanax for anxiety -- Seroquel added (25 QAM and 100 QHS) for persistent anxiety regarding trach collar and [place] valve trials -- Prozac for depression, dose increased on 09/25 -- Melatonin for sleep -- PT OT following Home meds: Tylenol, Melatonin Hematological: (1) Mild thrombocytosis; (2) Anemia -- Hgb 7.3 from 7.5, follow trend -- Plt 625 from 659, follow trend. start ASA if >1000 -- DVT prophylaxis: SQ Heparin Home meds: None Metabolic: (1) lactic acidosis on admission, now resolved Home meds: None Other: -- MVI Home meds: MVI Deep vein thrombosis prophylaxis: SQ Heparin Dietary: Pepcid Condition: critical Prognosis: guarded Code status: full Disposition: continue ICU care. social work working on [facility] Cumulative time spent in the care of this patient (excluding any procedure time) : at least 40 minutes. Patient care included clinical interview (with patient and/or family), bedside exam of the patient, review of labs, x-rays, and other ancillary data, coordination of (respiratory, nursing care, review of patient's records, discussion regarding patients management with involved consultants, primary physician, pharmacists, and other healthcare personnel (dietary, case management , physical/occupational therapy etc.) Critical Care Time: 40 min
[2018-09-28] MEDS: Albuterol 2.5 MG/3 ML NEB.SOL* (0.083%) INH PRN (16:57)
[2018-09-28 19:07] LABS: Urine Appearance Clear; Urine Bilirubin Negative (Negative); Urine Blood Negative (Negative); Urine Color Yellow; Urine Glucose Negative (Negative); Urine Ketones Negative (Negative); Urine Nitrite Negative (Negative); Urine Protein Negative (Negative); Urine Specific Gravity 1.013 (1.010-1.030); Urine Urobilinogen Negative (Negative)
[2018-09-28] MEDS ORDERED: Metoprolol Tartrate IV* 1 MG/ML 5 ML VIAL IV PRN (19:49)
[2018-09-28] MEDS ORDERED: HYDROmorphone INJ* 0.5 MG/0.5 ML SYRINGE IV SLOW PU PRN (19:50)
[2018-09-28] MEDS ORDERED: LORazepam INJ* 2 MG/ML 1 ML VIAL IV PUSH PRN (19:51)
[2018-09-28] MEDS ORDERED: Lorazepam PYXIS KEY PRN (19:51)
[2018-09-28] MEDS: QUEtiapine TAB* 100 MG PO SCH (20:53)
[2018-09-28] MEDS: Atorvastatin* 20 MG TAB PO SCH (20:54)
[2018-09-28] MEDS: Melatonin 3 MG TAB PO SCH (20:54)
[2018-09-28] MEDS: Enoxaparin(*) 40 MG/0.4 ML SYR SUBCUT SCH (20:58)
[2018-09-29] MEDS: Acetaminophen ADULT LIQ* 650 MG/20.3 ML UDC NG TUBE SCH ×5 (05:15→23:55)
[2018-09-29 05:46] LABS: Hematocrit 24 % (35-47); Hemoglobin 7.7 g/dL (12.0-16.0); Mean Corpuscular HGB Conc 32 g/dL (31-36); Mean Corpuscular Hemoglobin 26 pg (27-31); Mean Corpuscular Volume 81 fL (80-97); Mean Platelet Volume 6.8 fL (7.4-10.4); Platelet Count 625 10^3/uL (150-450); Red Cell Distribution Width 17 % (10-15); White Blood Count 24.6 10^3/uL (3.5-10.8)
[2018-09-29 06:01] LABS: Anion Gap 8 mmol/L (2-11); BUN/Creatinine Ratio 65.7 (8-20); Blood Urea Nitrogen 23 mg/dL (6-24); CO2 Carbon Dioxide 33 mmol/L (22-32); Calcium 8.7 mg/dL (8.6-10.3); Chloride 96 mmol/L (101-111); EGFR African American 220.9 (>60); EGFR Non-African American 182.5 (>60); Glucose 107 mg/dL (70-100); Magnesium 2.1 mg/dL (1.9-2.7); Potassium 3.8 mmol/L (3.5-5.0); Sodium 137 mmol/L (135-145)
[2018-09-29] MEDS: PTO:Budesonide/Formote 160/4.5(NF) MDI INH SCH ×2 (08:36→20:45)
[2018-09-29] MEDS: Famotidine SUSP ORALSYR 8 MG/ML G TUBE SCH (09:25)
[2018-09-29] MEDS: Multivitamins ADULT w/MIN LIQ* 15 ML UDC PO SCH (09:29)
[2018-09-29] MEDS: Nystatin TOP POWDER* 15 GM BTL TOPICAL SCH ×2 (09:32→22:22)
[2018-09-29] MEDS: Furosemide IV* 10 MG/ML VIAL (40 MG) IV SLOW PU SCH ×2 (09:50→21:11)
[2018-09-29] MEDS: Metoprolol Tartrate TAB* 25 MG PO SCH ×2 (09:50→20:46)
[2018-09-29] MEDS: FLUoxetine CAP* 20 MG PO SCH (09:50)
[2018-09-29] MEDS: QUEtiapine TAB* 25 MG PO SCH (09:50)
--- NOTE | 2018-09-29 09:52 | PN ---
Progress Note - Progress Note Date of Service: 09/29/18 SOAP: Subjective: Feels poorly this morning No complaints of abdominal pain Low grade fever again last night Objective: Temp Pulse Resp BP Pulse Ox 99.3 F 87 27 109/57 90 09/29/18 06:00 09/29/18 06:00 09/28/18 20:00 09/29/18 06:00 09/29/18 06:00 Intake & Output 09/27/18 09/28/18 09/29/18 09/30/18 06:59 06:59 06:59 06:59 Intake Total 1129 1990 Output Total 995 1460 1645 Balance 134 531 -1645 Weight 151 lb 7.437 oz 143 lb 4.807 oz Intake: Tube Feeding 1009 1916 Tube Feeding Flush Amount 120 75 Output: Wound Vac 0 20 Urine 520 Frost 995 1460 905 Colostomy 200 Tube Feeding Residual 0 Amount Wasted PEX: Awake and alert but appears fatigued Abd is soft and non-distended. Bowel sounds are present. Wound vac dressing in place. No tenderness, no RUQ fullness or tenderness Laboratory Results - last 24 hr 09/28/18 09/29/18 09/29/18 18:00 05:30 05:30 WBC 24.6 H RBC 3.00 L Hgb 7.7 L Hct 24 L MCV 81 MCH 26 L MCHC 32 RDW 17 H Plt Count 625 H MPV 6.8 L Sodium 137 Potassium 3.8 Chloride 96 L Carbon Dioxide 33 H Anion Gap 8 BUN 23 Creatinine 0.35 L Est GFR ( Amer) 220.9 Est GFR (Non-Af Amer) 182.5 BUN/Creatinine Ratio 65.7 H Glucose 107 H Calcium 8.7 Magnesium 2.1 Urine Color Yellow Urine Appearance Clear Urine pH 7.0 Ur Specific [place] 1.013 Urine Protein Negative Urine Ketones Negative Urine Blood Negative Urine Nitrate Negative Urine Bilirubin Negative Urine Urobilinogen Negative Ur Leukocyte Esterase Negative Urine Glucose Negative Urine Ascorbic Acid * A CXR 09/28--no acute disease, lung adams clear U/A WNL Blood cultures pending Assessment: S/P exlap with sigmoid colon resection and colostomy for perforated diverticula New fever with leukocytosis CXR/ U/A WNL Existing PICC line right upper extremity Plan: CT chest/abd/pelvis today-rule out intra-abdominal source--abscess, cholecystitis are possible. Blood cultures pending ? empiric antibiotics Discussed with Dr. Alejandro.
--- NOTE | 2018-09-29 14:22 | PN ---
Date of Service: 09/29/18 - [facility] note Critical Care Services: Pt seen and examined at bedside. Overnight events, labs, vitals, meds reviewed. Pt reports feeling poorly today, didnot want to get out of bed to chair. Requested to stay on vent longer. Pt had low grade fever last night, WBC count increased. Active Medications Generic Name Dose Route Start Last Admin Trade Name Freq PRN Reason Stop Dose Admin Acetaminophen 650 mg 09/24/18 12:00 09/29/18 09:30 Tylenol Adult Liq* NG TUBE 650 mg Q6H EMIL Administration Albuterol 2.5 mg 08/30/18 04:13 09/28/18 16:57 Ventolin 2.5 Mg/3 Ml Neb.Dang* INH 2.5 mg Q6H PRN Administration WHEEZING Alprazolam 0.25 mg 09/24/18 10:50 09/27/18 23:36 Xanax Tab* PO 0.25 mg Q8H PRN Administration AGITATION/ANXIETY Aspirin 325 mg 09/30/18 09:00 Aspirin Tab* PO DAILY [facility] Atorvastatin Calcium 20 mg 09/25/18 21:00 09/28/18 20:54 Lipitor* PO Not Given 2100 [facility] Budesonide/Formoterol Fumarate 2 puff 08/31/18 21:00 09/29/18 08:36 Symbicort 160/4.5 (Nf) INH Not Given BID [facility] Protocol Enoxaparin Sodium 40 mg 09/28/18 20:00 09/28/18 20:58 Lovenox(*) SUBCUT 40 mg Q24H EMIL Administration Famotidine 20 mg 09/25/18 09:00 09/29/18 09:25 Pepcid Susp 8mg/Ml G TUBE 20 mg DAILY EMIL Administration Fluoxetine HCl 20 mg 09/25/18 09:00 09/29/18 09:50 Prozac Cap* PO 20 mg DAILY [facility] Administration Furosemide 40 mg 09/25/18 12:30 09/29/18 09:50 Lasix Iv* IV SLOW PU 40 mg 0800,1700 EM[facility] Administration Heparin Sodium (Porcine) 1 - 3 ml 09/29/18 18:00 Heparin Flush Picc/Ml/Cvc(*) FLUSH 0600,1800 [facility] Protocol Hydromorphone HCl 0.5 mg 09/28/18 19:50 Dilaudid Inj* IV SLOW PU Q6H PRN PAIN Ibuprofen 600 mg 09/25/18 12:13 09/28/18 04:54 Motrin Liq Adult* PO 600 mg TID PRN Administration DISCOMFORT Lorazepam 0.5 mg 09/28/18 19:51 Ativan Inj* IV PUSH Q6H PRN ANXIETY Melatonin 6 mg 09/26/18 21:00 09/28/18 20:54 Melatonin PO Not Given BEDTIME [facility] Metoprolol Tartrate 12.5 mg 09/26/18 09:00 09/29/18 09:50 Lopressor Tab* PO 12.5 mg Q12HR EMIL Administration Metoprolol Tartrate 5 mg 09/28/18 19:49 09/28/18 20:59 Lopressor Iv* IV 5 mg Q6H PRN Administration HR > 100 Miscellaneous 1 ea 09/28/18 19:51 Ativan Pyxis [place] N/A .ATIVAN IV [place] PRN PYXIS [place] Multivitamins 15 ml 09/25/18 09:00 09/29/18 09:29 Theragran W/Minerals Liq* PO 15 ml DAILY [facility] Administration Nystatin 1 applic 09/25/18 21:00 09/29/18 09:32 Nystatin Top Powder* TOPICAL 1 applic BID [facility] Administration Quetiapine Fumarate 100 mg 09/26/18 21:00 09/28/18 20:53 Seroquel Tab* PO Not Given BEDTIME [facility]IL Quetiapine Fumarate 25 mg 09/26/18 09:00 09/29/18 09:50 Seroquel Tab* PO 25 mg DAILY EMIL Administration Vital Signs: Temp Pulse Resp BP SpO2 FiO2 98.4 F 72 22 124/59 96 30 09/29/18 14:00 09/29/18 14:00 09/29/18 08:00 09/29/18 12:00 09/29/18 14:00 09/29 08:34 Physical Exam: Gen: Pt appears weak, alert, awake HEENT: Trach +, No JVD Lungs: Diminished at bases, no wheeze Cardiac: S1, S2+ Abdomen: Soft, BS+, wound vac in place Extremities: Normal ROM Neuro: Alert, awke, follows commands, no focal deficits Fluid Balance (Past 24 Hours): I= 1645 O= -1645 Net 0 Intake & Output 09/27/18 09/28/18 09/29/18 09/30/18 06:59 06:59 06:59 06:59 Intake Total 1129 1990 Output Total 995 1460 1645 Balance 134 531 -1645 Weight 151 lb 7.437 oz 143 lb 4.807 oz Intake: Tube Feeding 1009 1916 Tube Feeding Flush Amount 120 75 Output: Wound Vac 0 20 Urine 520 Frost 995 1460 905 Colostomy 200 Tube Feeding Residual 0 Amount Wasted Labs: Laboratory Results - last 24 hr 09/28/18 09/29/18 09/29/18 18:00 05:30 05:30 WBC 24.6 H RBC 3.00 L Hgb 7.7 L Hct 24 L MCV 81 MCH 26 L MCHC 32 RDW 17 H Plt Count 625 H MPV 6.8 L Sodium 137 Potassium 3.8 Chloride 96 L Carbon Dioxide 33 H Anion Gap 8 BUN 23 Creatinine 0.35 L Est GFR ( Amer) 220.9 Est GFR (Non-Af Amer) 182.5 BUN/Creatinine Ratio 65.7 H Glucose 107 H Calcium 8.7 Magnesium 2.1 Urine Color Yellow Urine Appearance Clear Urine pH 7.0 Ur Specific [place] 1.013 Urine Protein Negative Urine Ketones Negative Urine Blood Negative Urine Nitrate Negative Urine Bilirubin Negative Urine Urobilinogen Negative Ur Leukocyte Esterase Negative Urine Glucose Negative Urine Ascorbic Acid * A Studies: CXR 09/28- Cardiomegaly, Rt base atelctasis. PICC line in place, Trach in place Nutrition: NGT feeds, chocking with po feeds Impression: 73 yo F who presented to the ED on 08/29 with perforated sigmoid diverticulitis. She failed nonoperative management and required an ex lap with sigmoidectomy and subsequent return to OR for ostomy and closure. 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 She has not been able to tolerate oral feeds, NGT was placed. She had fever spike 09/28 after completion of abx and was also noted to have increase in WBC count. She has been requiring Vent at night and prn during daytime. 1. Perforated sigmoid diverticulitis s/p ex lap with sigmoidectomy, complicated course with perforation requiring ex-lapx3 2.Leucocytosis, fever- Unclear source of infection 3.Acute resp failure requiring prolonged intubation s/p trach on vent at night 4. Malnourished state, on NGT feeds 5. Critical illness polyneuropathy 6. Anxiety/depression 7.Anemia Plan: 1. Neuro: Pt is alert, reports feeling weak today. Aspirating with oral feeds, Will c/w NGT feeds. Aspiration precautions. c/w Xanax, Prozac, Ativan prn. Melatonin for sleep 2. Resp: S/p trach on vent. Vent bundle ordered. c/w trach care. Will try to wean off vent as tolerated. H/o asthma, c/w bronchodialtors prn. CXR with no new infiltrates. Pulm toilet. Keep HOB at 30 degrees. Encourage PMV use. 3. CVS: Right ventricular overload on cardiac echo, has paroxysmal atrial fibrillation with RVR intermittently, had episodes of nonsustained short runs of Vtach, pt also with hx of mitral valve prolapse. On Metoprolol prn. 4. GI: S/p repair of perforated sigmoid diverticultis. required ORx3 sec to anastomotic leak. Wound vac in place. Sx f/u noted. Pt having chocking episodes with oral feeds. Will place NGT. 5. ID: Tmax 100.8, Leucocytosis+. Unclear source of sepsis, has completed 2 weeks abx. Septic w/u was repeated yesterday, negative to date. Will rpt CT chest, abd, pelvis for evaluation of source. Pt has PICC line- line sepsis. Pt also with concern for VAP however CXR didnot show any acute infiltrate. Sputum cx negative. Will hold off on abx for now. 6. Endo: Bl sugars slightly elevated, c/w Insulin SS 7. Haem: Anemia- Stable. Thrombocytosis- ? iron def anemia versus acute phase reactant. Will check Iron profile. Will start low dose ASA given significant thrombocytosis. 8. Musculoskeletal: Peeling of skin over buttocks and erythema. Frequent turning and positioning, OOB to chair. DVT px: On Lovenox. GI Px: Pepcid Code status: Full code CCM time- 30 min
[2018-09-29 15:04] LABS: Total Iron Binding Capacity 224 mcg/dL (250-450); Transferrin 160 mg/dL (203-362)
[2018-09-29 15:08] LABS: % Iron Saturation 8 % (15-55); Iron < 17 ug/dL (50-212)
[2018-09-29 17:11] LABS: Ferritin 547.2 ng/mL (11-307)
[2018-09-29] MEDS ORDERED: Vancomycin per Pharmacy* NOTE FOLLOW UP PRN (19:14)
[2018-09-29] MEDS ORDERED: Iohexol 300* (CONTRAST) 10 ML SDV IV ONE (19:26)
[2018-09-29] MEDS: Vancomycin(*) 1,000 MG in NS 0.9% 250 ML* 250 ML IVPB SCH (20:38)
[2018-09-29] MEDS: Atorvastatin* 20 MG TAB PO SCH (20:45)
[2018-09-29] MEDS: Melatonin 3 MG TAB PO SCH (20:45)
[2018-09-29] MEDS: QUEtiapine TAB* 100 MG PO SCH (20:45)
[2018-09-29] MEDS: Enoxaparin(*) 40 MG/0.4 ML SYR SUBCUT SCH (20:45)
[2018-09-29] MEDS ORDERED: Piperacillin/Tazobac ADVAN(*) 3.375 GM in NS 0.9% 100 ML* 100 ML IVPB ONE (21:15)
[2018-09-29] MEDS ORDERED: Zosyn per Pharmacy* NOTE FOLLOW UP SCH (22:00)
[2018-09-29] MEDS ORDERED: oxyCODONE TAB* 5 MG TAB PO PRN (22:20)
[2018-09-30] MEDS: ZOSYN 3.375 GM Q8H per EXTENDED INFUSION IVPB SCH ×4 (01:44→09:12)
[2018-09-30] MEDS: Acetaminophen ADULT LIQ* 650 MG/20.3 ML UDC NG TUBE SCH ×2 (05:33→11:18)
[2018-09-30 05:59] LABS: ABS Lymphocytes 0.9 10^3/ul (1.0-4.8); ABS Monocytes 1.4 10^3/ul (0-0.8); Eosinophil % 0.2 %; Hematocrit 23 % (35-47); Lymphocyte % 4.4 %; Mean Corpuscular HGB Conc 31 g/dL (31-36); Mean Corpuscular Hemoglobin 25 pg (27-31); Mean Corpuscular Volume 81 fL (80-97); Nucleated Red Blood Cells % 0.1; Platelet Count 544 10^3/uL (150-450); Red Blood Count 2.85 10^6 /uL (3.70-4.87); Red Cell Distribution Width 17 % (10-15); White Blood Count 21.4 10^3/uL (3.5-10.8)
[2018-09-30] MEDS ORDERED: Ferrous Sulfate DROPS* 15 MG/ML PO SCH (09:00)
[2018-09-30] MEDS ORDERED: Aspirin TAB* 325 MG PO SCH (09:00)
[2018-09-30] MEDS: Multivitamins ADULT w/MIN LIQ* 15 ML UDC PO SCH (09:12)
[2018-09-30] MEDS: Vancomycin(*) 1,000 MG in NS 0.9% 250 ML* 250 ML IVPB SCH (09:12)
[2018-09-30] MEDS: QUEtiapine TAB* 25 MG PO SCH (09:12)
[2018-09-30] MEDS: Furosemide IV* 10 MG/ML VIAL (40 MG) IV SLOW PU SCH (09:12)
[2018-09-30] MEDS: FLUoxetine CAP* 20 MG PO SCH (09:12)
[2018-09-30] MEDS: Metoprolol Tartrate TAB* 25 MG PO SCH (09:13)
[2018-09-30] MEDS: Nystatin TOP POWDER* 15 GM BTL TOPICAL SCH (09:13)
--- NOTE | 2018-09-30 09:54 | PN ---
Progress Note - Progress Note Date of Service: 09/30/18 - Transfer note Note: Date of hospital admission: 08/29/18 Reason for admissionto hospital: Diverticulitis Reason for admission to ICU: Septic shock, SVT, subsequent cardiac arrest Reason for transport: Abdominal abscess requiring drainage that is [place] of scope [place] [facility] [place] 73 [place] with h/o asthma, MVP, presented to ED on 08/29 with diffuse abdominal pain. Recently diagnosed with diverticulitis as outpatient (by CT) and completed a course of PO Cipro 5 days prior to presentation. Pain initially improved but then returned prompting presentation to ED. On evaluation in ED, pt with mildly distended abdomen with diffuse tenderness and guarding, WBC 8.4. Lactic acid 2.5. CT of abdomen shows foci of free intraperitoneal air and mucosal thickening of sigmoid colon, was started on IV abx, surgery consulted and was admitted to medical service. 08/30: feeling a bit better. WBC increased to 11.3 08/31: (+) BM. Pain improved. GG Enema ordered given large stool burden on CT - no obstruction distally. That afternoon vomited grape popsicle residue with subsequent tachycardia (to 170s) and tachypnea. Transferred to ICU for adenosine; rhythm atrial arrhythmia. Given Diltiazem with good effect. Bolused 1LNS. Requiring 15Lpm oximask for tachypnea and accessory muscle use. Improved with trial of NIV. [place] likely to be an aspiration pneumonitis. Started on Levophed and vasopressin to maintain adequate BP. Started on PPI for coffee ground fluid from NGT. Became unresponsive and pulseless, requiring <5min CPR before ROSC. Intubated, CVC and amy placed. Taken to OR with surgery for exploratory laparotomy; found to have perforated sigmoid colon with purulent peritonitis. Sigmoid colectomy and washout done. Abd left open with Wound VAC in place. 09/01: Sedated on vent. Remains on levophed and vasopressin. CXR with rightsided hazy infiltrates, likely aspiration pneumonitis. Bolused for low UOP and persistent metabolic acidosis. In evening developed Aflutter with HR 150s. started on Amiodarone gtt. Levophed changed to [place]. Improved after IVF bolus; UOP picked up as well. Requiring increased vent support. 09/02: repeat washout and second look with surgery. Abd left open with wound vac in place. weaned down to just vasopressin. 09/03: Bronch for mucus plug. Cardiac echo shows markedly dilated right heart but duplex of legs negative for DVT. Too unstable for CTA at this time. Empiric coverage for Christiana added. Went to OR for Ex lap, partial colon resection, end transverse colostomy and abdominal fascial closure with biologic mesh. Superficial wound vac placed over alloderm. 09/04: started diruese for volume overload and continued O2 demand. 09/05: O2 demand improved after recruitment maneuvers. Started trickle TF. Starting sedation vacations. 09/06: TF advancing to goal. Remains sedated despite sedation hold. 09/07: Starting to awaken. Persistent leukocytosis. 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 09/08: (+) Bowel function. VAC changed. Awake and following commands but minimal movement of limbs. Tolerating minimal vent support. Neurology consulted for EMG and nerve conduction studies. 09/09: ENT consulted for tracheostomy. 09/10: requiring IVF bolus for episode of hypotension. 09/11: On Precedex gtt for anxiety. Seroquel started. 09/12: Tracheostomy done 09/13: EMG consistent with critical illness myopathy. Pending Ach-r to rule out myathsenia gravis given additional finding of ptosis. 09/15: Trach collar during day, vent support at night. Abx course completed. Plan for 48 hr abx holiday. Started metoprolol for HTN 09/16: Trach collar limited by anxiety. 09/18: TC again limited by anxiety. Started on SSRI for depression. Continued benzo's for anxiety. 09/21: tolerating > 12 hrs Tc. OOB to chair. 09/23: tolerating PMV. possible need for vent rehab. 09/25: Passed swallow eval for honey thick liquids. PMV trials limited by anxiety; seroquel added 09/26: Nocturnal vent support start time pushed back to 8pm. Case management sent packets to additional facilities. 09/27: Placed back to vent at 9:30 pm. 09/28: Concern with aspiration of feeds. Po feeds held. Had Tmax 100.8, leukocytosis noted. Septic w/u sent. 09/29: Continues to have low grade fever, leukocytosis. CT chest/abdomen/pelvis ordered. Pt noted to have encapsulated pockets of pus with free air in lower pelvis omentum. Pt with episodes of hypotension resolved with fluid bolus. Pt with gradual drop in H&H with Hb 7 today. Not been able to tolerate being off vent. Active Medications Generic Name Dose Route Start Last Admin Trade Name Freq PRN Reason Stop Dose Admin Acetaminophen 650 mg 09/24/18 12:00 09/30/18 05:33 Tylenol Adult Liq* NG TUBE 650 mg Q6H EMIL Administration Albuterol 2.5 mg 08/30/18 04:13 09/28/18 16:57 Ventolin 2.5 Mg/3 Ml Neb.Dang* INH 2.5 mg Q6H PRN Administration WHEEZING Alprazolam 0.25 mg 09/24/18 10:50 09/27/18 23:36 Xanax Tab* PO 0.25 mg Q8H PRN Administration AGITATION/ANXIETY Aspirin 325 mg 09/30/18 09:00 09/30/18 09:12 Aspirin Tab* PO 325 mg DAILY EMIL Administration Atorvastatin Calcium 20 mg 09/25/18 21:00 09/29/18 20:45 Lipitor* PO 20 mg 2100 EMIL Administration Budesonide/Formoterol Fumarate 2 puff 08/31/18 21:00 09/29/18 20:45 Symbicort 160/4.5 (Nf) INH Not Given BID [facility] Protocol Enoxaparin Sodium 40 mg 09/28/18 20:00 09/29/18 20:45 Lovenox(*) SUBCUT 40 mg Q24H EMIL Administration Famotidine 20 mg 09/25/18 09:00 09/29/18 09:25 Pepcid Susp 8mg/Ml G TUBE 20 mg DAILY EMIL Administration Ferrous Sulfate 15 mg 09/30/18 09:00 09/30/18 09:13 Ferrous Sulfate Drops* PO 15 mg DAILY EMIL Administration Fluoxetine HCl 20 mg 09/25/18 09:00 09/30/18 09:12 Prozac Cap* PO 20 mg DAILY EMIL Administration Furosemide 40 mg 09/25/18 12:30 09/30/18 09:12 Lasix Iv* IV SLOW PU 40 mg 0800,1700 EMIL Administration Heparin Sodium (Porcine) 1 - 3 ml 09/29/18 18:00 09/30/18 05:33 Heparin Flush Picc/Ml/Cvc(*) FLUSH 1 ml 0600,1800 EMIL Administration Protocol Hydromorphone HCl 0.5 mg 09/28/18 19:50 09/29/18 23:55 Dilaudid Inj* IV SLOW PU 0.5 mg Q6H PRN Administration PAIN Vancomycin HCl 1,000 mg/ 250 mls @ 166.667 mls/hr 09/29/18 20:00 09/30/18 09: 12 Sodium Chloride IVPB 166.667 mls/hr Q12H EMIL Administration Piperacillin Sod/Tazobactam 100 mls @ 25 mls/hr 09/30/18 02:00 09/30/18 09:12 Sod 3.375 gm/ Sodium Chloride IVPB 25 mls/hr Q8H EMIL Administration Ibuprofen 600 mg 09/25/18 12:13 09/28/18 04:54 Motrin Liq Adult* PO 600 mg TID PRN Administration DISCOMFORT Lorazepam 0.5 mg 09/28/18 19:51 09/30/18 05:53 Ativan Inj* IV PUSH 0.5 mg Q6H PRN Administration ANXIETY Melatonin 6 mg 09/26/18 21:00 09/29/18 20:45 Melatonin PO 6 mg BEDTIME EMIL Administration Metoprolol Tartrate 12.5 mg 09/26/18 09:00 09/30/18 09:13 Lopressor Tab* PO 12.5 mg Q12HR EMIL Administration Metoprolol Tartrate 5 mg 09/28/18 19:49 09/28/18 20:59 Lopressor Iv* IV 5 mg Q6H PRN Administration HR > 100 Miscellaneous 1 ea 09/28/18 19:51 Ativan Pyxis [place] N/A .ATIVAN IV [place]ACK[place]URN PRN PYXIS BLACKBURN Multivitamins 15 ml 09/25/18 09:00 09/30/18 09:12 Theragran W/Minerals Liq* PO 15 ml DAILY EMIL Administration Nystatin 1 applic 09/25/18 21:00 09/30/18 09:13 Nystatin Top Powder* TOPICAL 1 applic BID EMIL Administration Oxycodone HCl 2.5 mg 09/29/18 22:20 Roxycodone Tab* PO Q6H PRN PAIN Pharmacy Consult 1 note 09/29/18 19:14 Vancomycin Per Pharmacy* FOLLOW UP . PRN PER PROTOCOL Pharmacy Consult 1 note 09/29/18 22:00 Zosyn Per Pharmacy* FOLLOW UP .ZOSYN PER PHARMACY [facility] Pharmacy Profile Note 1 note 10/01/18 07:30 Vancomycin Trough Check FOLLOW UP 10/01/18 07:31 0730 ONE Quetiapine Fumarate 100 mg 09/26/18 21:00 09/29/18 20:45 Seroquel Tab* PO 100 mg BEDTIME EMIL Administration Quetiapine Fumarate 25 mg 09/26/18 09:00 09/30/18 09:12 Seroquel Tab* PO 25 mg DAILY EMIL Administration O/E: Pt in NAD HEENT: PERRLA, no JVD Lungs: Clear to auscultation, decreased breath sounds at bases b/l, R>L CVS: S1, S2+, regular Abd: Colostomy+, wound vac+, soft, no tenderness Ext: Trace edema+, normal ROM Neuro: Alert, awake, no focal deficits Skin: Erythema in sacrum area Laboratory Results - last 24 hr 09/29/18 09/30/18 09/30/18 05:30 05:35 05:35 WBC 21.4 H RBC 2.85 L Hgb 7.0 L Hct 23 L MCV 81 MCH 25 L MCHC 31 RDW 17 H Plt Count 544 H D MPV 7.0 L Neut % (Auto) 88.9 Lymph % (Auto) 4.4 [place] % (Auto) 6.4 Eos % (Auto) 0.2 Baso % (Auto) 0.1 Absolute Neuts (auto) 19.0 H Absolute Lymphs (auto) 0.9 L Absolute Monos (auto) 1.4 H Absolute Eos (auto) 0.0 Absolute Basos (auto) 0.0 Absolute Nucleated RBC 0.0 Nucleated RBC % 0.1 Sodium 137 Potassium 3.8 Chloride 96 L Carbon Dioxide 33 H Anion Gap 8 BUN 23 Creatinine 0.35 L Est GFR ( Amer) 220.9 Est GFR (Non-Af Amer) 182.5 BUN/Creatinine Ratio 65.7 H Glucose 107 H Calcium 8.7 Magnesium 2.1 Iron < 17 L TIBC 224 L % Saturation 8 L Unsat Iron Binding < 209 Transferrin 160 L Ferritin 547.2 H Blood Type A Positive Antibody Screen Negative Crossmatch See Detail Transfer summary: 73 yo F who presented to the ED on 08/29 with perforated sigmoid diverticulitis. She failed nonoperative management and required an ex lap with sigmoidectomy and subsequent return to OR for ostomy and closure. 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 She has not been able to tolerate oral feeds, NGT was placed. She had fever spike 6/14 after completion of abx and was also noted to have increase in WBC count. She has been requiring Vent at night and prn during daytime. She was noted to have encapsulated pockets of pus with free air in lower pelvis omentum. Pt with episodes of hypotension resolved with fluid bolus. Pt with gradual drop in H&H with Hb 7 today. Not been able to tolerate being off vent, has mucus plugging in lower lobes b/l with atelectasis. Pt with repair of perforated sigmoid diverticultis. required ORx3 sec to anastomotic leak. Wound vac in place. CT abdomen showed encapsulated pockets of fluid, likely abscess in abdomen and pelvis. Pt not able to tolerate oral feeds. c/w NGT feeds. I have discuissed with radiologist correctional treatment specialist and surgeon. Radiologist not comfortable with draining percutaneously as abscess are deep. She is complicated for [place] again [place] [facility] [place]. She is therefore needed to be transferred to facility with higher level of care with IR and surgical speciality care. Patient requested [facility] was contacted through transport center. She was accepted by surgical acid mixer Dr Moss. She would be transported via ambulance. She is alert and reports feeling tired and weak. She is stable from aspect of anxiety and depression for which she is receiving Xanax, Prozac, Ativan prn. Melatonin for sleep. She will continue on vent. Vent bundle ordered. c/w trach care. Wean off vent when her clinical condition improves. She has h/o asthma, not in exacerbation and she is receiving bronchodialtors prn. CT does show basal atelctasis and mucus plugging. c/w pulm toilet. Keep HOB at 30 degrees. She has evidence of right ventricular overload on cardiac echo, has paroxysmal atrial fibrillation with RVR intermittently, had episodes of nonsustained short runs of Vtach last night, pt also with hx of mitral valve prolapse. She is on Metoprolol prn which would be held if SBP <100. Will monitor for electrolyte abnormalities and avoid hypoxia. Will transfuse 1 unit pRBC today. She has low grade fevers, continues to have leucocytosis and other signs of sepsis. She has blood cultures positive for Staph epidermidis, covered by Vancomycin. She is also on Zosyn to cover for bowel pathogens. Lactate is pending. She is responding to fluid resuscitation and is not requiring vasopressors. Her Bl sugars are slightly elevated, will c/w Insulin SS Anemia with gradual drop in H&H, Hb 7 today, given PVCs, NSVT will transfuse her with 1 unit pRBC. Her thrombocytosis is improving, she does have iron def anemia and elevated ferritin which is acute phase reactant. She was started on Iron supplementation.She is on low dose ASA given significant thrombocytosis. She is maintained on Lovenox for DVT px. She is on pepcid for GI px. At this time she is stable and is awaiting transport by ambulance with ACLS and ventilatory capability. Patient was updated at bedside and her HCP Shannon Ruiz and Cely were updated on change of status and need for transportation. All the parties involved are agreeable to plan. I have discussed the case with accepting physician Dr Moss on 09/30/18 around 9 :25 am. Patient will remain full code Cumulative time spent in the care of this patient (excluding any procedure time) : at least 60 minutes. Patient care included clinical interview with patient, bedside exam of the patient, review of labs, x-rays, and other ancillary data, coordination of ( respiratory, nursing care, review of patient's records, discussion regarding patients management with involved consultants, pharmacists, and other healthcare personnel (dietary, case management etc.)
[2018-09-30 10:00] LABS: Albumin/Globulin Ratio 0.6 (1-3); BUN/Creatinine Ratio 57.6 (8-20); Calcium 6.6 mg/dL (8.6-10.3); EGFR African American 236.4 (>60); EGFR Non-African American 195.4 (>60); Globulin 3.1 g/dL (2-4); Indirect Bilirubin 0.2 mg/dL (0.3-1.0); Total Bilirubin 0.3 mg/dL (0.2-1.0); Total Protein 5.1 g/dL (6.4-8.9)
[2018-09-30 10:03] LABS: Potassium 2.4 mmol/L (3.5-5.0)
--- NOTE | 2018-09-30 10:32 | PN ---
Progress Note - Progress Note Date of Service: 09/30/18 SOAP: Subjective: Night's event reviewed CT reviewed She remains comfortable on the ventilator Objective: Temp Pulse Resp BP Pulse Ox 99.1 F 63 29 109/40 94 09/30/18 05:13 09/30/18 05:13 09/30/18 05:53 09/30/18 05:13 09/30/18 05:13 Intake & Output 09/28/18 09/29/18 09/30/18 10/01/18 06:59 06:59 06:59 06:59 Intake Total 1990 880 556 Output Total 1460 1645 1215 75 Balance 531 -1645 -335 481 Weight 151 lb 7.437 oz 143 lb 4.807 oz 148 lb 5.938 oz Intake: IV Fluids 146 NS 146 IVPB 410 ABX - VANCOMYCIN 200 ABX - ZOSYN 210 Tube Feeding 1916 Tube Feeding Flush Amount 75 NG Tube Irrigate Amount 880 Output: Wound Vac 20 150 Urine 520 315 Frost 1460 905 500 75 Colostomy 200 250 Other: Date of Last Bowel 08/1518 Movement # Bowel Movements 1 Estimated Stool Amount Medium PEX: Comfortable on the ventilator Abd is soft and distended. Wound vac in place No tenderness Laboratory Results - last 24 hr 09/29/18 09/30/18 09/30/18 05:30 05:35 05:35 WBC 21.4 H RBC 2.85 L Hgb 7.0 L Hct 23 L MCV 81 MCH 25 L MCHC 31 RDW 17 H Plt Count 544 H D MPV 7.0 L Neut % (Auto) 88.9 Lymph % (Auto) 4.4 [place] % (Auto) 6.4 Eos % (Auto) 0.2 Baso % (Auto) 0.1 Absolute Neuts (auto) 19.0 H Absolute Lymphs (auto) 0.9 L Absolute Monos (auto) 1.4 H Absolute Eos (auto) 0.0 Absolute Basos (auto) 0.0 Absolute Nucleated RBC 0.0 Nucleated RBC % 0.1 Sodium 137 Potassium 3.8 Chloride 96 L Carbon Dioxide 33 H Anion Gap 8 BUN 23 Creatinine 0.35 L Est GFR ( Amer) 220.9 Est GFR (Non-Af Amer) 182.5 BUN/Creatinine Ratio 65.7 H Glucose 107 H Calcium 8.7 Magnesium 2.1 Iron < 17 L TIBC 224 L % Saturation 8 L Unsat Iron Binding < 209 Transferrin 160 L Ferritin 547.2 H Total Bilirubin Direct Bilirubin Indirect Bilirubin AST ALT Alkaline Phosphatase Total Protein Albumin Globulin Albumin/Globulin Ratio Blood Type A Positive Antibody Screen Negative Crossmatch See Detail 09/30/18 09:30 WBC RBC Hgb Hct MCV MCH MCHC RDW Plt Count MPV Neut % (Auto) Lymph % (Auto) [place] % (Auto) Eos % (Auto) Baso % (Auto) Absolute Neuts (auto) Absolute Lymphs (auto) Absolute Monos (auto) Absolute Eos (auto) Absolute Basos (auto) Absolute Nucleated RBC Nucleated RBC % Sodium 140 Potassium 2.4 L* Chloride 105 Carbon Dioxide 27 Anion Gap 8 BUN 19 Creatinine 0.33 L Est GFR ( Amer) 236.4 Est GFR (Non-Af Amer) 195.4 BUN/Creatinine Ratio 57.6 H Glucose 98 Calcium 6.6 L Magnesium Iron TIBC % Saturation Unsat Iron Binding Transferrin Ferritin Total Bilirubin 0.30 Direct Bilirubin 0.10 Indirect Bilirubin 0.2 L AST 15 ALT 11 Alkaline Phosphatase 95 Total Protein 5.1 L Albumin 2.0 L Globulin 3.1 Albumin/Globulin Ratio 0.6 L Blood Type Antibody Screen Crossmatch Blood cultures noted CT reviewed-- Chest: No acute disease Abd/Pelvis: 3 separate fluid collections as described in report, free air anteriorly v bowel? Assessment: S/P sigmoid colon resection with colostomy for perforated diverticular disease. Sepsis-blood cultures positive Vent dependence Abdominal fluid collections-?? abscesses Plan: Discussed with Dr. Alejandro-at this point I agree with transfer to a higher level of care for percutaneous drainage of fluid collection and culture and further surgical care as indicated. She has been accepted at [facility] and will be transferred today. Also discussed with patient's daughter at bedside this morning and explained situation and answered her questions.
[2018-09-30] MEDS ORDERED: KCL 20 MEQ/100 ML IVPREMIX* 20 MEQ/100 ML BAG IV ONE (10:48)
[2018-09-30] MEDS ORDERED: KCL 20 MEQ/100 ML IVPREMIX* 20 MEQ/100 ML BAG IV SCH (11:00)
[2018-09-30] MEDS: Famotidine SUSP ORALSYR 8 MG/ML G TUBE SCH (11:17)
[2018-09-30] MEDS: PTO:Budesonide/Formote 160/4.5(NF) MDI INH SCH (11:17)
[2018-09-30 11:50] LABS: Magnesium 1.6 mg/dL (1.9-2.7)
[2018-09-30 11:55] VITALS: BP 104/86
[2018-10-01] MEDS ORDERED: Vancomycin Trough Check NOTE FOLLOW UP ONE (07:30)
== END 2018-09-30 12:00 | disposition short-term general hospital (02) | DRG 3 ==
LOC: ED 08:59 → SSU 15:09 → ICU 08-31 15:38
PROVIDERS: ADMIT Internal Medicine; ATTEND Internal Medicine
PROC: 5A1955Z Respiratory Ventilation, Greater than 96 Consecutive Hours (ICD-10-PCS; 2018-08-31)
PROC: 0BH17EZ Insertion of Endotracheal Airway into Trachea, Via Natural or Artificial Opening (ICD-10-PCS; 2018-08-31)
PROC: 0DTN0ZZ Resection of Sigmoid Colon, Open Approach (ICD-10-PCS; principal; 2018-08-31 20:00)
PROC: 0W9G00Z Drainage of Peritoneal Cavity with Drainage Device, Open Approach (ICD-10-PCS; 2018-09-02)
PROC: 0DTM0ZZ Resection of Descending Colon, Open Approach (ICD-10-PCS; 2018-09-03)
PROC: 0D1L0Z4 Bypass Transverse Colon to Cutaneous, Open Approach (ICD-10-PCS; 2018-09-03)
PROC: 0B110F4 Bypass Trachea to Cutaneous with Tracheostomy Device, Open Approach (ICD-10-PCS; 2018-09-12)
DX: A41.9 Sepsis, unspecified organism (principal); J96.01 Acute respiratory failure with hypoxia; K65.1 Peritoneal abscess; I47.1 Supraventricular tachycardia; K57.20 Diverticulitis of large intestine with perforation and abscess without bleeding; J45.909 Unspecified asthma, uncomplicated; R65.20 Severe sepsis without septic shock; E83.42 Hypomagnesemia; I48.91 Unspecified atrial fibrillation; Z98.42 Cataract extraction status, left eye; Z98.41 Cataract extraction status, right eye; Z88.2 Allergy status to sulfonamides; Z82.49 Family history of ischemic heart disease and other diseases of the circulatory system; Z83.3 Family history of diabetes mellitus; Z87.891 Personal history of nicotine dependence
CPT/HCPCS: 31622; 36415; 36600; 71045; 71250; 71260; 74018; 74176; 74177; 74270; 80048; 80053; 80061; 80076; 80202; 81003; 81015; 82248; 82330; 82533; 82550; 82728; 82803; 83036; 83519; 83540; 83550; 83605; 83690; 83735; 83880; 84100; 84484; 84550; 85025; 85027; 85060; 85610; 86140; 86850; 86900; 86901; 86922; 87040; 87070; 87073; 87076; 87077; 87086; 87106; 87150; 87186; 87205; 87640; 87641; 88307; 93005; 93306; 93970; 94002; 94003; 94640; 94660; 95886; 95910; 97530; 99284; A9270-GY; C1751; C1776; C1781; G8978-GP-CL; G8978-GP-CM; G8978-GP-CN; G8979-GP-CI; G8979-GP-CM; G8980-GP-CM; G8987-GO-CN; G8988-GO-CH; J0153; J0171; J0282; J0330; J0348; J0610; J1170; J1644; J1650; J1940; J2001; J2060; J2250; J2270; J2405; J2543; J2704; J2920; J2930; J3010; J3370; J3475; J3480; J3490; J7060; P9040; P9045; P9047; Q9967

== ENCOUNTER 2018-12-22 20:32 | Emergency (ER) | payer MEDICARE, OTHER ==
--- NOTE | 2018-12-22 20:36 | ED ---
Respiratory - HPI Summary HPI Summary: 73 [facility] [place] with a chief complaint of tracheostomy complication since today 12/22/18 at 20:00. Symptoms aggravated by nothing. Symptoms alleviated by nothing. Patient reports having tracheostomy since August when she visited the hospital for diverticulitis and sepsis. Patient reports she called EMS as soon as the trach came out/dislodged. ENT at [facility] in [place] and her typical SAT is 90-92% on oxygen. Patient reports she is on 24/7 oxygen at home through 3 L nasal cannula (though she reports she does not actually always uses it). Hx asthma. Patient denies using smoking cigarettes currently (has used in the past socially). - History of Current Complaint Stated Complaint: TRACH REMOVAL PER EMS Hx Obtained From: Patient Onset/Duration: Still Present Timing: Constant Aggravating Factor(s): Nothing Alleviating Factor(s): Nothing - Allergy/Home Medications Allergies/Adverse Reactions: Allergies Allergy/AdvReac Type Severity Reaction Status Date / Time fluticasone Allergy Tachycardia Verified 12/22/18 20:56 [From Advair Diskus] salmeterol Allergy Tachycardia Verified 12/22/18 20:56 [From Advair Diskus] Sulfa (Sulfonamide Allergy Unknown Verified 12/22/18 20:56 Antibiotics) Reaction Details PMH/Surg Hx/FS Hx/Imm Hx Endocrine/Hematology History: Denies: Hx Diabetes Cardiovascular History: Reports: Hx Coronary Artery Disease, Hx Hypercholesterolemia, Hx 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, Other Cardiovascular Problems/Disorders - HIGH CHOLESTEROL Denies: Hx Hypertension Respiratory History: Reports: Hx Asthma, Hx Chronic Obstructive Pulmonary Disease (COPD), Other Respiratory Problems/Disorders - MILD SOB FROM BRONCHITIS GI History: Reports: Hx Diverticulosis, Hx Gastroesophageal Reflux Disease History: Denies: Hx Renal Disease Musculoskeletal History: Reports: Hx Arthritis - OSTEOARTHRITIS, Other Musculoskeletal History - DJD NECK AND BACK Sensory History: Reports: Hx Cataracts - BILATERAL- SURG DATES 10/05/16 & 10/12/16 Denies: Hx Contacts or Glasses, Hx Glaucoma, Hx Hearing Aid Opthamlomology History: Reports: Hx Cataracts - BILATERAL- SURG DATES 10/05/16 & 10/12/16 Denies: Hx Contacts or Glasses, Hx Glaucoma - Cancer History Hx Chemotherapy: No - Surgical History Surgery Procedure, Year, and [facility] 21 [facility]- DIFFICULTY WAKING UP. 1995-BLEPHAROPLASTY- IN DR KRAUS'S OFFICE Hx Anesthesia Reactions: Yes - WISOM TOOTH- TOO MUCH ANES, DIFFICULTY WAKING UP Infectious Disease History: Denies: Hx Clostridium Difficile, Hx Hepatitis, Hx Human Immunodeficiency Virus (HIV), Hx of Known/Suspected MRSA, Hx Shingles, Hx Tuberculosis, Hx Known/ Suspected VRE, Hx Known/Suspected VRSA, History Other Infectious Disease - Family History Known Family History: Positive: Hypertension, Respiratory Disease - Social History Alcohol Use: None Alcohol Amount: denies, but has history Hx Substance Use: No Substance Use Type: Reports: None Hx Tobacco Use: Yes Smoking Status (MU): Former Smoker Type: Cigarettes Amount Used/How Often: SOCIAL SMOKER, NOT EVERY DAY, OFF AND ON FOR 20 YRS Length of Time of Smoking/Using Tobacco: 20 YRS Have You Smoked in the Last Year: No Review of Systems Negative: Fever ENT: Other - tracheostomy complication All Other Systems Reviewed And Are Negative: Yes Physical Exam - Summary Physical Exam Summary: Constitutional: Well-developed, Well-nourished, Alert. (-) Distressed Skin: Warm, Dry HENT: Normocephalic; Atraumatic Eyes: Conjunctiva normal Neck: Musculoskeletal ROM normal neck. (-) JVD, (-) Stridor, (-) Tracheal deviation Cardio: Rhythm regular, rate normal, Heart sounds normal; Intact distal pulses; The pedal pulses are 2+ and symmetric. Radial pulses are 2+ and symmetric. (-) Murmur Pulmonary/Chest wall: tracheostomy hold with no bleeding and patents Abd: Soft, (-) tenderness, (-) Distension, (-) Guarding, (-) Rebound Musculoskeletal: (-) Edema Lymph: (-) Cervical adenopathy Neuro: Alert, Oriented x3 Psych: Mood and affect Normal Triage Information Reviewed: Yes Vital Signs Reviewed: Yes Procedures - Additional Procedures Additional Procedures: tracheostomy - A 6 F uncuffed tube was inserted into the tracheostomy site, small amount of bleeding after insertion Disposition - Course Course Of Treatment: Patient is here after she coughed of her tracheostomy tube. Patient was satting 100% on nonrebreather upon arrival. Patient had her cuff size decreased yesterday. Patient did not have the fish cutting machine operator for her cuff so one of our 6 persian uncuffed tube was was inserted into her tracheostomy site. RT came and place patient on notified oxygen and suctioned her trach. Patient was satting at 90-92% which is her baseline. Patients boyfriend arrived with her home oxygen and patient wanted to be discharged and was safe for discharge. - Diagnoses Provider Diagnoses: Tracheostomy complication Discharge ED - Sign-Out/Discharge Documenting (check all that apply): Patient Departure - discharge Patient Received Moderate/Deep Sedation with Procedure: No - Discharge Plan Condition: Stable Disposition: HOME Patient Education Materials: Tracheostomy Care (ED) Referrals: Sophie Tucker MD [Primary Care Provider] - As Soon As Possible Additional Instructions: Continue tracheostomy care that you have been doing at home. Return if you have a fever, trouble breathing, or worsening oxygen levels. Call your ENT in the morning to let them know what happened. - Billing Disposition and Condition Condition: STABLE Disposition: Home - Attestation Statements Document Initiated by Tennillee: Yes Documenting Scribe: Dariana Hernandez Provider For Whom Pankaj is Documenting (Include Credential): Dr. Darnell Matthews MD Scribe Attestation: Dariana Cai, scribed for Dr. Darnell Matthews MD on 12/23/18 at 1038. Scribe Documentation Reviewed: Yes Provider Attestation: The documentation as recorded by the Dariana mike accurately reflects the service I personally performed and the decisions made by me, Dr. Darnell Matthews MD Status of Scribe Document: Viewed
--- OUTSIDE RECORDS SUMMARY | 2018-12-22 21:07 | XMS REPORT | Summary of Care ---
:1945 Author Organization [facility] Address [address] [place] [address] Care Team Providers Name Role Phone Sophie Tucker MD Primary Care Provider Emil Craig MD Unavailable Reason for Referral Diagnostic Testing (Routine) Status Reason Specialty Diagnoses / Referred By Referred To Procedures Contact Contact Pending Review Diagnoses Sepsis, due to unspecified organism (HCC) Sophie Tucker MD Procedures ECHOCARDIOGRAM TTE [address] [place] [address] Reason for Visit Reason Comments Respiratory Failure Abdominal Laceration Muscle Weakness Encounter Details Date Type Department Care Team Description 12/07/2018 Office Visit [place] [facility] Sophie Tucker MD Myopathy, unspecified (Primary Dx); Medicine [address] Peritoneal abscess (HCC); [address] [place] [address] Sepsis, due to unspecified organism (HCC); [place] [address] Acute on chronic respiratory failure with hypoxia (HCC); [phone] Acute deep vein thrombosis (DVT) of right upper extremity, unspecified vein (HCC); Pleural effusion Allergies Active Allergy Reactions Severity Noted Date Comments Fluticasone-Salmeterol 08/07/2007 Intolerance Citalopram MED SPA MANAGER Reaction 10/22/2015 Affected function - Simvastatin GI Reaction 02/03/2009 heptitis documented as of this encounter (statuses as of 12/07/2018) Medications Medication Sig Dispensed Refills Start Date End Date Status albuterol Take 2 Puffs by 2 3 08/14/2007 Active (PROVENTIL,VENTOLIN) inhalation EVERY 90 mcg/act FOUR HOURS NEEDED SOB TYLENOL 325 MG Oral Take 650 mg by 0 Active Tab mouth EVERY FOUR HOURS NEEDED for Pain. SYMBICORT IN Take 2 INHL by 0 Active inhalation TWO TIMES DAILY NEEDED Melatonin 3 MG Oral Take by mouth. 0 Active Cap Multiple Vitamin Take by mouth. 0 Active (DAILY VITAMIN FORMULA With 1000 iu D3 PO) estrogens, conjugated Place 0.5 3 Tube 3 01/16/2015 Active (PREMARIN) 0.625 MG/GM Applicators into Vaginal the vagina EVERY CreamIndications: 7 DAYS. Pessary maintenance hydrocortisone Place 1 Appl per 3 Tube 3 01/16/2015 Active (ANUSOL-HC) 2.5 % rectum TWICE Rectal DAILY. CreamIndications: Pessary maintenance Triamcinolone [place] in nose 0 Active Acetonide (NASACORT AQ NEEDED. NA) atorvastatin (LIPITOR) Take 1 Tab by 90 Tab 3 09/21/2016 Active 20 MG Oral mouth DAILY. TabIndications: Lipid disorder albuterol (PROVENTIL, 3 mL by 360 mg 1 10/26/2016 Active VENTOLIN) (2.5 MG/3ML) Inhalation-SVN 0.083% Inhalation Nebu route EVERY SIX Soln HOURS NEEDED (wheezing, sob). Diagnosis J44.9 famotidine (PEPCID) 20 Take 1 Tab by 90 Tab 3 07/02/2018 Active MG Oral mouth DAILY. TabIndications: Gastroesophageal reflux disease without esophagitis enoxaparin (LOVENOX) Inject 0.6 mL 90 Syringe 0 10/15/2018 Active 60 MG/0.6ML beneath the skin Subcutaneous Solution EVERY TWELVE HOURS. ciprofloxacin (CIPRO) Take 1 Tab by 3 Tab 0 10/15/2018 Active 500 MG Oral mouth TWICE TabIndications: DAILY. Diverticulitis documented as of this encounter (statuses as of 12/07/2018) Active Problems Problem Noted Date Sepsis 12/07/2018 Diverticulitis 09/30/2018 Intra-abdominal abscess 09/30/2018 MVP (mitral valve prolapse) 09/28/2016 Mixed anxiety depressive disorder 10/22/2015 Pessary maintenance 08/30/2012 Hepatitis 11/18/2008 Overview: Traniently elevated liver function tests- - ultrasound showed minimally dilated bile ducts (7.5mm) Osteoporosis 08/14/2008 Overview: Stop actonel 09/25 - holiday- at this time Asthma 08/07/2007 Overview: PFT - 01/01 Small airway disease most pronounced - Reversibility noted Lipid disorder 06/18/2007 documented as of this encounter (statuses as of 12/07/2018) Resolved Problems Problem Noted Date Resolved Date Osteopenia 08/07/2007 08/14/2008 documented as of this encounter (statuses as of 12/07/2018) Immunizations Name Administration Dates Next Due Influenza (IM) Preservative Free 01/14/2017 PNEUMOCOCCAL POLYSACCHARIDE VACCINE 09/10/2013, 02/02/2005 Pneumococcal Conjugate(13 Valent) 09/17/2015 TDAP Vaccine 08/14/2007 ZOSTER (ZOSTAVAX) VACCINE 09/14/2012 documented as of this encounter Social History Tobacco Use Types Packs/Day Years Used Date Former Smoker Quit: 08/26/1998 Smokeless Tobacco: Never Used Alcohol Use Drinks/Week oz/Week Comments No Sex Assigned at Date Recorded Not on file Job Start Date Occupation Industry Not on file Not on file Not on file Travel History Travel Start Travel End No recent travel history available. documented as of this encounter Last Filed Vital Signs Vital Sign Reading Time Taken Comments Blood Pressure - - Pulse 85 12/07/2018 6:33 PM EDT Temperature - - Respiratory Rate - - Oxygen Saturation 91% 12/07/2018 6:33 PM EDT 3 liters thru trach Inhaled Oxygen Concentration - - Weight - - Height - - Body Mass Index - - documented in this encounter Patient Instructions Patient InstructionsSophie Tucker MD - 12/05/2018 4:20 PM EDTPlan For ongoing home care - Make sure that patient able to care for trach / colostomy / wound dressing of abdomen Increase strengthening and mobility from neurmomuscular complications of prolonged illness Advance respiratory status to remove trach and decrease need for 02 dependence Evaluate cardiac status - Follow up of blood work Discontinue anticoag after 3-6 months as appropriate - Needs pulmonary referral ( best probably follow up with Dr Anaya at [facility]) GI follow up for colostomy CXR / Echocardiogram / BW when in Monday documented in this encounter Progress Notes Sophie Tucker MD - 12/05/2018 4:20 PM EDT TCM Statement. Review of the hospitalization: I am seeing for transition of care following hospitalization. The date of discharge was: 11/29/[address] 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 I reconciled the medications. I also reviewed the Transition of Care documentation done by staff. Coordination of care. (delete one and this phrase) - I am satisfied that appropriate referrals are in place to deal with the problems identified during hospitalization, and that the patient has adequate community resources and support in place. - Additional testing related to hospitilization was requested today: yes See orders. Referral to wound clinic ( already begun) pulmonary follow up / GI referral for colostomy follow up I confirmed the patient's understanding of the diagnosis and plan of care. Specific education that was provided today: Patient Instructions Plan For ongoing home care - Make sure that patient able to care for trach / colostomy / wound dressing of abdomen Increase strengthening and mobility from neurmomuscular complications of prolonged illness Advance respiratory status to remove trach and decrease need for 02 dependence Evaluate cardiac status - Follow up of blood work Discontinue anticoag after 3-6 months as appropriate - Needs pulmonary referral ( best probably follow up with Dr Anaya at [facility]) GI follow up for colostomy CXR / Echocardiogram / BW when in Monday The current and discharge medications were reconciled by me, today The source document was hospital discharge summary From [facility] NAME:Darline Spencer 1945: 1945 ENC Date: 12/07/2018 CC: Chief Complaint Patient presents with Respiratory Failure Abdominal Laceration Muscle Weakness Darline Spencer is a 73-y.o. female status post complex critical care hospitalization and ongoing rehab - Hospitalization started at [facility] 08/29- 09/30 -with complicated diverticulitis / sepsis - course complicated by acute respiratory failure after a cardiac arrest / managed in the ICU intubated - hospitalization further complicated by neumomuscular myopathy of critical illness transferred to [facility] for drainage of abdominal abscesses and further management of respiratory and neurmomuscular complications - Transfer to [place] 10/15/18 for rehab and then rehab at [facility] -11/15/18 - discharge 11/29/18 Patient was on trach collar since 11/12/18 - trach changed to cuffless type Presently patient on 3 liters oxygen through the trach/ Open abdominal wound healing by secondary intention followed by wound clinic / left abdominal colostomy She is eating a regular diet Current Outpatient Medications Medication Sig albuterol (PROVENTIL, VENTOLIN) (2.5 MG/3ML) 0.083% Inhalation Nebu Soln 3 mL by Inhalation-SVN route EVERY SIX HOURS NEEDED (wheezing, sob). Diagnosis J44.9 albuterol (PROVENTIL,VENTOLIN) 90 mcg/act Take 2 Puffs by inhalation EVERY FOUR HOURS NEEDED SOB atorvastatin (LIPITOR) 20 MG Oral Tab Take 1 Tab by mouth DAILY. ciprofloxacin (CIPRO) 500 MG Oral Tab Take 1 Tab by mouth TWICE DAILY. enoxaparin (LOVENOX) 60 MG/0.6ML Subcutaneous Solution Inject 0.6 mL beneath the skin EVERY TWELVE HOURS. estrogens, conjugated (PREMARIN) 0.625 MG/GM Vaginal Cream Place 0.5 Applicators into the vagina EVERY 7 DAYS. famotidine (PEPCID) 20 MG Oral Tab Take 1 Tab by mouth DAILY. hydrocortisone (ANUSOL-HC) 2.5 % Rectal Cream Place 1 Appl per rectum TWICE DAILY. Melatonin 3 MG Oral Cap Take by mouth. Multiple Vitamin (DAILY VITAMIN FORMULA PO) Take by mouth. With 1000 iu D3 SYMBICORT IN Take 2 INHL by inhalation TWO TIMES DAILY NEEDED Triamcinolone Acetonide (NASACORT AQ NA) [place] in nose NEEDED. TYLENOL 325 MG Oral Tab Take 650 mg by mouth EVERY FOUR HOURS NEEDED for Pain. No current facility-administered medications for this visit. Patient Active Problem List Diagnosis Date Noted Sepsis (HCC) 12/07/2018 Diverticulitis 09/30/2018 Intra-abdominal abscess (HCC) 09/30/2018 MVP (mitral valve prolapse) 09/28/2016 Mixed anxiety depressive disorder 10/22/2015 Pessary maintenance 08/30/2012 Hepatitis 11/18/2008 Traniently elevated liver function tests- - ultrasound showed minimally dilated bile ducts (7.5mm) Osteoporosis 08/14/2008 Stop actonel 09/25 - holiday- at this time Asthma 08/07/2007 PFT - 01/01 Small airway disease most pronounced - Reversibility noted Lipid disorder 06/18/2007 Family History Problem Relation Age of Onset Heart Father Heart Mother Hypertension Mother Asthma Mother No cardiopulmonary symptoms No upper or lower GI complaints No urinary tract symptoms. No bruising/ bleeding. No neurological complaints . No insomnia.+ . Social History Tobacco Use Smoking status: Former Smoker Last attempt to quit: 08/26/1998 Years since quittin.2 Smokeless tobacco: Never Used Substance Use Topics Alcohol use: No Drug use: No OBJECTIVE: Looked well / breathing comfortably with supplemental oxygen through trach in neck Speech clear and coherent Pulse 85 | SpO2 91% Comment: 3 liters thru trach. Heent neg Lungs ~ Clear bilaterally CV rrr Abd soft, Large dressing over center of abdomen - left sided colostomy bag - Ext 1-2+ ankle edema; no lesions; Neuro: intellect intact ; get up from chair easily with walker - Gets around house with walker - - has oxygen hose trailing - A/P ICD-9-CM ICD-10-CM 1. Myopathy, unspecified 359.9 G72.9 2. Peritoneal abscess ([facility]) 567.22 K65.1 3. Sepsis, due to unspecified organism ([facility]) 038.9 A41.9 CBC WITH DIFFERENTIAL 995.91 COMPREHENSIVE METABOLIC PANEL THYROID STIMULATING HORMONE MAGNESIUM LEVEL 4. Acute on chronic respiratory failure with hypoxia ([facility]) 518.84 J96.21 XR CHEST 2 VIEW PA AND LATERAL (STANDARD) 799.02 5. Acute deep vein thrombosis (DVT) of right upper extremity, unspecified vein ( [facility]) 453.82 I82.621 6. Pleural effusion 511.9 J90 XR CHEST 2 VIEW PA AND LATERAL (STANDARD) Patient Instructions Plan For ongoing home care - Make sure that patient able to care for trach / colostomy / wound dressing of abdomen Increase strengthening and mobility from neurmomuscular complications of prolonged illness Advance respiratory status to remove trach and decrease need for 02 dependence Evaluate cardiac status - Follow up of blood work Discontinue anticoag after 3-6 months as appropriate - Needs pulmonary referral ( best probably follow up with Dr Anaya at [facility]) GI follow up for colostomy CXR / Echocardiogram / BW when in Monday AUTHOR: Sophie Tucker MD 18:47 12/07/2018 documented in this encounter Plan of Treatment Date Type Specialty Care Team Description 12/13/2018 Office Visit Internal Medicine Sophie Tucker MD [address] [id number] Name Type Priority Associated Diagnoses Order Schedule XR CHEST 2 VIEW PA AND Imaging Routine Acute on chronic Ordered: 12/07/2018 LATERAL (STANDARD) respiratory failure with hypoxia (HCC) Pleural effusion CBC WITH DIFFERENTIAL Lab Routine Sepsis, due to Expected: unspecified organism 12/07/2018 (HCC) (Approximate), Expires: 06/05/2019 COMPREHENSIVE METABOLIC Lab Routine Sepsis, due to Expected: PANEL unspecified organism 12/07/2018 (HCC) (Approximate), Expires: 06/05/2019 THYROID STIMULATING Lab Routine Sepsis, due to Expected: HORMONE unspecified organism 12/07/2018 (HCC) (Approximate), Expires: 06/05/2019 MAGNESIUM LEVEL Lab Routine Sepsis, due to Expected: unspecified organism 12/07/2018 (HCC) (Approximate), Expires: 06/05/2019 ECHOCARDIOGRAM TTE CV Lab Routine Sepsis, due to Expected: unspecified organism 12/07/2018, (HCC) Expires: 01/11/2020 Health Maintenance Due Date Last Done Comments HIV SCREENING 1960 FALL RISK ASSESSMENT 2010 ZOSTER IMMUNIZATION SERIES 11/09/2012 09/14/2012 (2 of 3) MAMMOGRAM (SCREENING) 09/21/2017 09/21/2016, 07/20/2015, 11/11/2013, Additional history exists DEPRESSION SCREENING 11/02/2018 11/02/2017 MEDICARE ANNUAL WELLNESS 11/02/2018 11/02/2017, 09/17/2015, VISIT 09/17/2015, Additional history exists INFLUENZA VACCINE (#1) 2018 01/14/2017 OSTEOPOROSIS SCREENING 09/06/2020 09/06/2010, 09/06/2010 LIPID DISORDER SCREENING 12/19/2022 12/19/2017, 09/21/2016, 08/30/2012, Additional history exists PNEUMOCOCCAL 65+YRS Completed 09/17/2015, 09/10/2013, 02/02/2005 HPV IMMUNIZATION SERIES Aged Out No longer eligible based on patient's age to complete this topic MENINGOCOCCAL VACCINE IMM Aged Out No longer eligible based on patient's age to complete this topic documented as of this encounter Goals Goal Patient Goal Associated Recent Patient-Stated? Author Type Problems Progress Depression Depression No cammie Tucker (PHQ-9) MD Sophie total score < 5 Note: This is an individualized treatment (depression) goal for Darline Spencer: Displayed above is your goal for a depression screening (PHQ-9) score that would indicate good control of your depression. Keep a regular sleep schedule Lifestyle No Sophie Tucker MD Note: This is an individualized lifestyle goal for Darline Spencer: Please maintain a regular sleep schedule. This may help with some symptoms of depression. Take all prescribed medications as directed Self-management No Sophie Tucker MD Note: This is an individualized self-management goal for Darline Spencer: Please take all prescribed medications as directed. 1. Do not skip doses. If you cannot afford your medications, talk with your doctor. 2. Use a pill reminder system such as a pill box if needed. Your pharmacist can help you with this. 3. Contact your Pharmacy 5 days before your medication runs out. If you cannot take your medications for any reasons, talk with your doctor. 4. Please bring all of your medication bottles and inhalers (or a list of all your medications/inhalers) with you to every visit. Potential barriers to meeting all of your care plan goals will continue to be addressed on an ongoing basis. 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 Yes Order was discussed with: Patient I discussed all options and patient/surrogate requested and agreed to: Full Code Full Code 09/30/2018 3:19 PM 10/11/2018 9:05 AM Does the patient have decision making capacity? Yes Order was discussed with: Patient I discussed all options and patient/surrogate requested and agreed to: Full Code"
--- OUTSIDE RECORDS SUMMARY | 2018-12-22 21:07 | XMS REPORT | Summary of Care ---
:1945 Author Organization [facility] Address [address] [address] Care Team Providers Name Role Phone Sophie Tucker MD Primary Care Provider Emil Craig MD Unavailable Reason for Referral MRI/CAT/PET Scan (Routine) Status Reason Specialty Diagnoses / Referred By Referred To Procedures Contact Contact Authorized Diagnoses Left leg swelling Sophie Tucker MD Procedures VL LOWER EXTREMITY DUPLEX VEINS LEFT [address] [place] [address] Reason for Visit Reason Comments Hospital Follow Up has trach and colostomy. Still very tired. Having VNS and therapy. 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 Melatonin 3 MG Oral Take by mouth. 0 Active Cap Multiple Vitamin Take by mouth. 0 Active (DAILY VITAMIN With 1000 iu D3 FORMULA PO) estrogens, conjugated Place 0.5 3 Tube 3 Active (PREMARIN) 0.625 Applicators 5 MG/GM Vaginal into the vagina CreamIndications: EVERY 7 DAYS. Pessary maintenance hydrocortisone Place 1 Appl 3 Tube 3 Active (ANUSOL-HC) 2.5 % per rectum 5 Rectal TWICE DAILY. CreamIndications: Pessary maintenance Triamcinolone Hinckley in nose 0 Active Acetonide (NASACORT NEEDED. AQ NA) atorvastatin Take 1 Tab by 90 Tab 3 Active (LIPITOR) 20 MG Oral mouth DAILY. 7 TabIndications: Lipid disorder albuterol (PROVENTIL, 3 mL by 360 mg 1 Active VENTOLIN) (2.5 Inhalation-SVN 7 MG/3ML) 0.083% route EVERY SIX Inhalation Nebu Soln HOURS NEEDED (wheezing, sob). Diagnosis J44.9 famotidine (PEPCID) Take 1 Tab by 90 Tab 3 Active 20 MG Oral mouth DAILY. 9 TabIndications: Gastroesophageal reflux disease without esophagitis budesonide-formoterol Take 2 INHL by 0 Active fumarate (SYMBICORT) inhalation 160-4.5 MCG/ACT TWICE DAILY. Inhalation Aerosol guaifenesin (MUCINEX) Take 600 mg by 0 Active 600 MG Oral TABLET SR mouth TWICE 12 HR DAILY. rivaroxaban (XARELTO) Take 20 mg by 0 Active 20 MG Oral Tab mouth DAILY. clonazePAM (KLONOPIN) Take 0.5 mg by 0 Active 0.5 MG Oral Tab mouth TWICE DAILY. fluticasone (FLONASE) Hinckley 2 Sprays 0 Active 50 MCG/ACT Nasal in nose DAILY. Suspension metoprolol Take 25 mg by 0 Active (LOPRESSOR) 25 MG mouth TWICE Oral Tab DAILY. SYMBICORT IN Take 2 INHL by 0 12/14/19 Discontinued inhalation TWO 19 TIMES DAILY NEEDED enoxaparin (LOVENOX) Inject 0.6 mL 90 Syringe 0 12/14/19 Discontinued 60 MG/0.6ML beneath the 01 03 Subcutaneous Solution skin EVERY TWELVE HOURS. ciprofloxacin (CIPRO) Take 1 Tab by 3 Tab 0 12/14/19 Discontinued 500 MG Oral mouth TWICE 01 03 TabIndications: DAILY. Diverticulitis documented as of this encounter (statuses as of 12/13/2018) Active Problems Problem Noted Date Sepsis 12/07/2018 [...] as of this encounter (statuses as of 12/13/2018) Resolved Problems Problem Noted Date Resolved Date Osteopenia 08/07/2007 08/14/2008 documented as of this encounter (statuses as of 12/13/2018) Immunizations Name Administration Dates Next Due Influenza [...] Sign Reading Time Taken Comments Blood Pressure 129/62 12/13/2018 2:22 PM EDT Pulse 70 12/13/2018 2:22 PM EDT Temperature 36.3 12/13/2018 2:22 PM EDT C (97.3 F) Respiratory Rate - - Oxygen Saturation 95% 12/13/2018 2:22 PM EDT Inhaled Oxygen Concentration - - Weight 53.5 kg (118 lb) 12/13/2018 2:22 PM EDT Height 152.4 cm (5') 12/13/2018 2:22 PM EDT Body Mass Index 23.05 12/13/2018 2:22 PM EDT documented in this encounter Patient Instructions Patient InstructionsSophie Tucker MD - 12/13/2018 2:00 PM EDTPlan cxr / blood work / vl for the left leg - Unlikely DVT while on blood thinner but will chk - documented in this encounter Progress Notes Sophie Tucker MD - 12/13/2018 2:00 PM EDT NAME:Darline Spencer [birth year] ENC Date: 12/13/2018 CC: Chief Complaint Patient presents with Hospital Follow Up has trach and colostomy. Still very tired. Having VNS and therapy. Darline Spencer is a 73-y.o. 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 for drainage of abdominal abscesses and further management of respiratory and neurmomuscular complications - Transfer to [place] 10/15/18 for rehab and then rehab at [facility] -11/15/18 - discharge 11/29/18 Patient was on trach collar since 11/12/18 - trach changed to cuffless type First presentation to the office since back from rehab Have been working on getting patient pulmonary input - Will see Dr Alejandro to wean her off [facility] has evaluted at [facility]- Using oxygen through the nc and only using 3 liters at home O2 Saturation - 91% when back from without oxygen Follow up with the wound clinic yesterday- Doing well- abdominal wound is closing up Can change colostomy without problem now- Abdominal wound only needs 3x week changing Has been on blood thinner 3 months for subclavian DVT - Discussed disconitnue soon - Has not fallen since last fall last week - Swelling of the left leg in the last 1.5 weeks - only since home and in a more dependent situation - No pain - is consistent with Her xarelto - Eating ok - oxygen requirement going down- Current Outpatient Medications Medication Sig albuterol (PROVENTIL, VENTOLIN) (2.5 MG/3ML) 0.083% Inhalation Nebu Soln 3 mL by Inhalation-SVN route EVERY SIX HOURS NEEDED (wheezing, sob). Diagnosis J44.9 albuterol (PROVENTIL,VENTOLIN) 90 mcg/act Take 2 Puffs by inhalation EVERY FOUR HOURS NEEDED SOB atorvastatin (LIPITOR) 20 MG Oral Tab Take 1 Tab by mouth DAILY. budesonide-formoterol fumarate (SYMBICORT) 160-4.5 MCG/ACT Inhalation Aerosol Take 2 INHL by inhalation TWICE DAILY. clonazePAM (KLONOPIN) 0.5 MG Oral Tab Take 0.5 mg by mouth TWICE DAILY. estrogens, conjugated (PREMARIN) 0.625 MG/GM Vaginal Cream Place 0.5 Applicators into the vagina EVERY 7 DAYS. famotidine (PEPCID) 20 MG Oral Tab Take 1 Tab by mouth DAILY. fluticasone (FLONASE) 50 MCG/ACT Nasal Suspension Hinckley 2 Sprays in nose DAILY. guaifenesin (MUCINEX) 600 MG Oral TABLET SR 12 HR Take 600 mg by mouth TWICE DAILY. hydrocortisone (ANUSOL-HC) 2.5 % Rectal Cream Place 1 Appl per rectum TWICE DAILY. Melatonin 3 MG Oral Cap Take by mouth. metoprolol (LOPRESSOR) 25 MG Oral Tab Take 25 mg by mouth TWICE DAILY. Multiple Vitamin (DAILY VITAMIN FORMULA PO) Take by mouth. With 1000 iu D3 rivaroxaban (XARELTO) 20 MG Oral Tab Take 20 mg by mouth DAILY. Triamcinolone Acetonide (NASACORT AQ NA) Hinckley in nose NEEDED. TYLENOL 325 MG Oral [...] Last attempt to quit: 08/26/1998 Years since quittin.3 Smokeless tobacco: Never Used Substance Use Topics Alcohol use: No Drug use: No OBJECTIVE: Looks well - 2 BP 129/62 | Pulse 70 | Temp 97.3 F (36.3 C) | Ht 5' (1.524 m) | Wt 118 lb (53.5 kg) | SpO2 95% | BMI 23.05 kg/m . Heent neg Neck no JVD, thyromegaly or bruit Lungs Clear CV rrr Abd soft, nontender, no organomegaly Ext no edema; Neuro: intellect intact ; motor including gait unremarkable A/P ICD-9-CM ICD-10-CM 1. Aspiration pneumonia of lower lobe, unspecified aspiration pneumonia type, unspecified laterality([facility]) 507.0 J69.0 XR CHEST 2 VIEW PA AND LATERAL (STANDARD ) 2. Sepsis, due to unspecified organism ([facility]) 038.9 A41.9 CBC WITH DIFFERENTIAL 995.91 COMPREHENSIVE METABOLIC PANEL THYROID STIMULATING HORMONE LIPID PROFILE MAGNESIUM LEVEL MAGNESIUM LEVEL LIPID PROFILE THYROID STIMULATING HORMONE COMPREHENSIVE METABOLIC PANEL CBC WITH DIFFERENTIAL 3. Left leg swelling 729.81 M79.89 VL LOWER EXTREMITY DUPLEX VEINS LEFT 4. Open wound of abdominal wall, subsequent encounter V58.89 S31.109D 879.2 Patient Instructions Plan cxr / blood work / vl for the left leg - Unlikely DVT while on blood thinner but will chk - AUTHOR: Sophie Tucker MD 15:53 12/13/2018 documented in this encounter Plan of Treatment Date Type Specialty Care Team Description 12/14/2018 Ancillary Procedure Radiology 12/31/2018 Office Visit Internal Medicine Sophie Tucker MD [address] [place] [address] [phone] Name Type Priority Associated Diagnoses Date/Time XR CHEST 2 VIEW PA AND Imaging Routine Aspiration pneumonia of 12/13/2018 3:19 PM LATERAL (STANDARD) lower lobe, unspecified EDT aspiration pneumonia type, unspecified laterality (HCC) CBC WITH DIFFERENTIAL Lab Routine Sepsis, due to 12/13/2018 3:23 PM unspecified organism EDT (HCC) COMPREHENSIVE METABOLIC Lab Routine Sepsis, due to 12/13/2018 3:23 PM PANEL unspecified organism EDT (HCC) THYROID STIMULATING Lab Routine Sepsis, due to 12/13/2018 3:23 PM HORMONE unspecified organism EDT (HCC) LIPID PROFILE Lab Routine Sepsis, due to 12/13/2018 3:23 PM unspecified organism EDT (HCC) MAGNESIUM LEVEL Lab Routine Sepsis, due to 12/13/2018 3:23 PM unspecified organism EDT (HCC) Name Type Priority Associated Diagnoses Order Schedule CBC WITH DIFFERENTIAL Lab Routine Sepsis, due to Expected: 12/13/2018 unspecified organism (Approximate), (HCC) Expires: 06/11/2019 COMPREHENSIVE METABOLIC Lab Routine Sepsis, due to Expected: 12/13/2018 PANEL unspecified organism (Approximate), (HCC) Expires: 06/11/2019 THYROID STIMULATING Lab Routine Sepsis, due to Expected: 12/13/2018 HORMONE unspecified organism (Approximate), (HCC) Expires: 06/11/2019 LIPID PROFILE Lab Routine Sepsis, due to Expected: 12/13/2018 unspecified organism (Approximate), (HCC) Expires: 06/11/2019 MAGNESIUM LEVEL Lab Routine Sepsis, due to Expected: 12/13/2018 unspecified organism (Approximate), (HCC) Expires: 06/11/2019 VL LOWER EXTREMITY Imaging Routine Left leg swelling 1 Occurrences starting DUPLEX VEINS LEFT 12/13/2018 until 12/13/2019 Health Maintenance Due Date Last Done Comments HIV SCREENING 1960 FALL RISK ASSESSMENT 2010 ZOSTER IMMUNIZATION SERIES 11/09/2012 09/14/2012 (2 of 3) MAMMOGRAM (SCREENING) 09/21/2017 09/21/2016, 07/20/2015, 11/11/2013, Additional history exists MEDICARE ANNUAL WELLNESS 11/02/2018 11/02/2017, 09/17/2015, VISIT 09/17/2015, Additional history exists INFLUENZA VACCINE (#1) 2018 01/14/2017 DEPRESSION SCREENING 12/14/2019 12/13/2018 OSTEOPOROSIS SCREENING 09/06/2020 09/06/2010, 09/06/2010 LIPID DISORDER [...] depression. Keep a regular sleep schedule Lifestyle Sophie Guallpa MD Note: This is an individualized lifestyle goal for Darline Spencer: Please maintain a regular sleep schedule. This may help with some symptoms of depression. Take all prescribed medications as directed Self-management Sophie Guallpa MD Note: This is an individualized self-management [...] filedocumented in this encounter Visit Diagnoses Diagnosis Aspiration pneumonia of lower lobe, unspecified aspiration pneumonia type, unspecified laterality (HCC) - Primary Sepsis, due to unspecified organism (HCC) Left leg swelling Open wound of abdominal wall, subsequent encounter documented in this encounter Guarantor Name Account Type Relation to Date of Phone Billing Patient Address Darline Spencer Personal/Family 1945 [address] (Home) [place] [phone] [place], [place] (Work) [address] documented as of this encounter Advance Directives Type Date Recorded Patient Manager Center Explanation Advance Directives 10/16/2018 9:28 AM Code [...]
[2018-12-22 22:02] VITALS: BP 150/91
== END 2018-12-22 22:01 | disposition home or self-care (01) ==
LOC: ED 20:32
DX: J95.00 Unspecified tracheostomy complication (principal); I25.10 Atherosclerotic heart disease of native coronary artery without angina pectoris; E78.00 Pure hypercholesterolemia, unspecified; J44.9 Chronic obstructive pulmonary disease, unspecified; Z87.891 Personal history of nicotine dependence; Z99.81 Dependence on supplemental oxygen; Z79.01 Long term (current) use of anticoagulants; Z79.899 Other long term (current) drug therapy; Z88.2 Allergy status to sulfonamides; Z88.8 Allergy status to other drugs, medicaments and biological substances
CPT/HCPCS: 99283

== ENCOUNTER 2018-12-23 14:13 | Emergency (ER) | payer MEDICARE, OTHER ==
--- NOTE | 2018-12-23 14:24 | ED ---
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 She takes 3 L O2 at home as a baseline. She states that her tracheotomy tube fell out prior to EMS arriving to her house. She states that she has no pain currently. States that she has a dry cough. She also states that she has a blood clot in her R arm. She has no alleviating factors. She has a PMHx of CAD, hypercholesterolemia , asthma, COPD, and Bronchitis. She was present in [facility] last night for a similar episode. 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 Related History: Similar Episode/Dx as - 12/22/18 - Allergy/Home Medications Allergies/Adverse Reactions: Allergies Allergy/AdvReac Type Severity Reaction Status Date / Time fluticasone Allergy Tachycardia Verified 12/22/18 20:56 [From Advair Diskus] salmeterol Allergy Tachycardia Verified 12/22/18 20:56 [From Advair Diskus] Sulfa (Sulfonamide Allergy Unknown Verified 12/22/18 20:56 Antibiotics) Reaction Details Home Medications: Home Medications Metoprolol Tartrate TAB* [Lopressor TAB*] 25 mg PO BID 12/23/18 [History Confirmed 12/23/18] Rivaroxaban TAB(*) [Xarelto 20 mg] 20 mg PO DAILY 12/23/18 [History Confirmed ] clonazePAM [Clonazepam] 0.5 mg PO BID 12/23/18 [History Confirmed 12/23/18] guaiFENesin [Mucinex] 600 mg PO Q12HR PRN 12/23/18 [History Confirmed 12/23/18] PMH/Surg Hx/FS Hx/Imm Hx Previously Healthy: Yes Endocrine/Hematology History: Denies: Hx Diabetes Cardiovascular History: Reports: Hx Coronary Artery Disease, Hx Hypercholesterolemia, Hx 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, Other Cardiovascular Problems/Disorders - HIGH CHOLESTEROL Denies: Hx Hypertension Respiratory History: Reports: Hx Asthma, Hx Chronic Obstructive Pulmonary Disease (COPD), Other Respiratory Problems/Disorders - MILD SOB FROM BRONCHITIS GI History: Reports: Hx Diverticulosis, Hx Gastroesophageal Reflux Disease History: Denies: Hx Renal Disease Musculoskeletal History: Reports: Hx Arthritis - OSTEOARTHRITIS, Other Musculoskeletal History - DJD NECK AND BACK Sensory History: Reports: Hx Cataracts - BILATERAL- SURG DATES 10/05/16 & 10/12/16 Denies: Hx Contacts or Glasses, Hx Glaucoma, Hx Hearing Aid Opthamlomology History: Reports: Hx Cataracts - BILATERAL- SURG DATES 10/05/16 & 10/12/16 Denies: Hx Contacts or Glasses, Hx Glaucoma - Cancer History Hx Chemotherapy: No - Surgical History Surgery Procedure, Year, and Place: 21 YRS OLD- WISDOM TOOTH EXTRACTED IN DR DYLAN- DIFFICULTY WAKING UP. 1995-BLEPHAROPLASTY- IN DR KRAUS'S OFFICE Hx Anesthesia Reactions: Yes - WISOM TOOTH- TOO MUCH ANES, DIFFICULTY WAKING UP Infectious Disease History: Denies: Hx Clostridium Difficile, Hx Hepatitis, Hx Human Immunodeficiency Virus (HIV), Hx of Known/Suspected MRSA, Hx Shingles, Hx Tuberculosis, Hx Known/ Suspected VRE, Hx Known/Suspected VRSA, History Other Infectious Disease - Family History Known Family History: Positive: Hypertension, Respiratory Disease - Social History Alcohol Use: None Alcohol Amount: denies, but has history Hx Substance Use: No Substance Use Type: Reports: None Hx Tobacco Use: Yes Smoking Status (MU): Former Smoker Type: Cigarettes Amount Used/How Often: SOCIAL SMOKER, NOT EVERY DAY, OFF AND ON FOR 20 YRS Length of Time of Smoking/Using Tobacco: 20 YRS Have You Smoked in the Last Year: No Review of Systems Constitutional: Negative - lightheadedness Negative: Fever, Chills Negative: Chest Pain Positive: Shortness Of Breath, Cough - unproductive/dry, Other - NEGATIVE: sputum production Negative: Abdominal Pain, Vomiting, Nausea Negative: Headache All Other Systems Reviewed And Are Negative: Yes Physical Exam - Summary Physical Exam Summary: Constitutional: Well-developed, Well-nourished, Alert. (-) Distressed, leaning forward. speaking in fyull sentences, trache in place. Skin: Warm, Dry HENT: Normocephalic; Atraumatic Eyes: Conjunctiva normal Neck: Musculoskeletal ROM normal neck. (-) JVD, (-) Stridor, (-) Tracheal deviation Cardio: Rhythm regular, rate normal, Heart sounds normal; Intact distal pulses; The pedal pulses are 2+ and symmetric. Radial pulses are 2+ and symmetric. (-) Murmur Pulmonary/Chest wall: Effort normal. (+) Respiratory distress, (-) Wheezes, (-) Rales, tachypnic, bed side bronchostomy shows tracheotomy in the trachea. Abd: Soft, (-) tenderness, (-) Distension, (-) Guarding, (-) Rebound Musculoskeletal: (-) Edema Lymph: (-) Cervical adenopathy Neuro: Alert, Oriented x3 Psych: Mood and affect Normal Triage Information Reviewed: Yes Vital Signs Reviewed: Yes Diagnostics - Laboratory Result Diagrams: 12/23/18 14:40 12/23/18 14:40 Lab Statement: Any lab studies that have been ordered have been reviewed, and results considered in the medical decision making process. - Radiology CXR Radiology Interpretation Completed By: Radiologist Summary of Radiographic Findings: Relative to the most recent chest x-ray dated September 28, 2018 there is. worsening density overlying the bilateral lungs which could be due to pleural effusion. and/or consolidation involving the lower lobes. ED Physician has reviewed this report. - CT Chest CTA CT Interpretation Completed By: Radiologist Summary of CT Findings: 1. No CT of evidence of pulmonary embolism. 2. Pathologic dilatation of the pulmonary arteries is consistent with pulmonary hypertension. 3. There is consolidation of the right lower lobe similar in appearance to the September 29, 2018 CT of the chest. There is a small amount of linear compression of the anterior left lower lobe but overall aeration of the left lower lobe is improved relative to the September 29, 2018 CT of the chest. 4. There is reflux of intravenously injected contrast into the hepatic veins which can be seen in the setting of right heart failure and/or pulmonary hypertension. ED physician has reviewed this report. Re-Evaluation - Re-Evaluation First Eval Re-Evaluation Time: 18:17 Change: Improved Comment: Pt is sating at 90% and has refused admission to the hospital. She was informed that she will be leaving AMA and was informed of the complications that could happen as a result which include but are not limited to the following : , neurological damage, stroke, and a heart attack. She understands these risks and still wishes to leave the facility. Disposition - Course Course Of Treatment: Patient is here satting 60% at home. Patient was restrained distress. Patient was brought in with an O2 sat in the low 80s and mid-seventies periodically. I replaced patient's tracheostomy tube yesterday. A disposal bronch was used to check placement of tracheostomy tube with proper placement in the trachea. Patient had a large mucous plug present in her gastric tube. RT replaced patient's tracheostomy tube with a new one with improvement in her oxygenation. Patient had a chest x-ray which showed possible basilar infiltrate. Given patient's symptoms onset shortness of breath , a further workup was performed which included a CTA of her chest which showed a stable infiltrate. Patient does have large pulmonary vasculature consistent hypertension. Patient was not diagnosed with her last echocardiogram in August. Patient elevated troponin and BNP here. Patient was counseled for quite a while on why she needed admission but she declined multiple times. Patient left AMA and was aware of the acute risk of dying if she wasn't hospitalized - Diagnoses Provider Diagnoses: Tracheostomy complication, Mucus plugging of bronchi, Hypoxemia, Elevated troponin, Pulmonary hypertension, Elevated brain natriuretic peptide (BNP) level - Critical Care Time Critical Care Time: 75-104 min - 75 minutes Discharge ED - Sign-Out/Discharge Documenting (check all that apply): Patient Departure - AMA Patient Received Moderate/Deep Sedation with Procedure: No - Discharge Plan Condition: Stable Disposition: AGAINST MEDICAL ADVICE Patient Education Materials: Tracheostomy Care (ED), Pulmonary Arterial Hypertension (ED), Hypoxemia (DC) Referrals: Sophie Tucker MD [Primary Care Provider] - 2 Days Additional Instructions: PLEASE CALL YOUR TELEPHONE SWITCHBOARD OPERATOR VENKAT. IF YOU DECIDE YOU WANT TO BE ADMITTED AND TREATED RETURN TO THE EMERGENCY DEPARTMENT VENKAT. USE ANY TECHNIQUES YOUR TELEPHONE SWITCHBOARD OPERATOR HAS TAUGHT YOU. - Billing Disposition and Condition Condition: STABLE Disposition: Against Medical Advice - Attestation Statements Document Initiated by Scribe: Yes Documenting Scribe: Isiah Dolan Provider For Whom Scribe is Documenting (Include Credential): Darnell Matthews MD Scribe Attestation: Isiah Cai, scribed for Darnell Matthews MD on 12/23/18 at 2120. Scribe Documentation Reviewed: Yes Provider Attestation: The documentation as recorded by the scribeIsiah accurately reflects the service I personally performed and the decisions made by me, Darnell Matthews MD Status of Scribe Document: Viewed
[2018-12-23] MEDS ORDERED: Albuterol/Ipratropium NEB.SOL* Albuterol 2.5 MG/Ipratropium 0.5 MG 3 ML INH ONE (14:31)
[2018-12-23 15:05] LABS: ABS Eosinophils 0.2 10^3/ul (0-0.6); ABS Lymphocytes 2.2 10^3/ul (1.0-4.8); ABS Monocytes 1.1 10^3/ul (0-0.8); Eosinophil % 1.4 %; Hematocrit 35 % (35-47); Hemoglobin 10.8 g/dL (12.0-16.0); Lymphocyte % 16.5 %; Mean Corpuscular HGB Conc 31 g/dL (31-36); Mean Corpuscular Hemoglobin 24 pg (27-31); Mean Corpuscular Volume 76 fL (80-97); Mean Platelet Volume 7.4 fL (7.4-10.4); Platelet Count 433 10^3/uL (150-450); Red Blood Count 4.53 10^6 /uL (3.70-4.87); Red Cell Distribution Width 20 % (10-15); White Blood Count 13.5 10^3/uL (3.5-10.8)
[2018-12-23 15:09] LABS: ALT 16 U/L (7-52); AST 23 U/L (13-39); Albumin 3.6 g/dL (3.2-5.2); Albumin/Globulin Ratio 0.9 (1-3); Alkaline Phosphatase 97 U/L (34-104); Anion Gap 7 mmol/L (2-11); BUN/Creatinine Ratio 15.4 (8-20); Blood Urea Nitrogen 8 mg/dL (6-24); CO2 Carbon Dioxide 28 mmol/L (22-32); Calcium 9.3 mg/dL (8.6-10.3); Chloride 102 mmol/L (101-111); EGFR African American 139.9 (>60); EGFR Non-African American 115.6 (>60); Globulin 3.9 g/dL (2-4); Glucose 116 mg/dL (70-100); Potassium 3.9 mmol/L (3.5-5.0); Sodium 137 mmol/L (135-145); Total Protein 7.5 g/dL (6.4-8.9)
[2018-12-23 15:28] LABS: Troponin I 0.06 ng/mL (<0.04)
[2018-12-23] MEDS ORDERED: Iohexol 350* (CONTRAST) 500 ML MDV IV ONE (15:54)
[2018-12-23 20:12] VITALS: BP 137/76
== END 2018-12-23 18:55 | disposition left against medical advice (07) ==
LOC: ED 14:13
DX: J95.03 Malfunction of tracheostomy stoma (principal); Y83.8 Other surgical procedures as the cause of abnormal reaction of the patient, or of later complication, without mention of misadventure at the time of the procedure; Y92.9 Unspecified place or not applicable; T17.590A Other foreign object in bronchus causing asphyxiation, initial encounter; R09.02 Hypoxemia; R79.89 Other specified abnormal findings of blood chemistry; Z53.21 Procedure and treatment not carried out due to patient leaving prior to being seen by health care provider; Z87.891 Personal history of nicotine dependence; I25.10 Atherosclerotic heart disease of native coronary artery without angina pectoris; E78.00 Pure hypercholesterolemia, unspecified; Z79.899 Other long term (current) drug therapy; I34.1 Nonrheumatic mitral (valve) prolapse; J44.9 Chronic obstructive pulmonary disease, unspecified; R06.02 Shortness of breath; I27.20 Pulmonary hypertension, unspecified; Z88.8 Allergy status to other drugs, medicaments and biological substances; Z79.01 Long term (current) use of anticoagulants
CPT/HCPCS: 36415; 71045; 71275; 80053; 83880; 84484; 85025; 99283; A9270-GY; Q9967